=== PATIENT | female | born 1935 | race Caucasian/White ===

== ENCOUNTER 2016-09-29 02:49 | Inpatient (IN) | payer OTHER, BC ==
--- NOTE | 2016-09-29 03:06 | PDOC ---
History of Present Illness - General History Source: Patient <Leo Bean - Last Filed: 09/29/16 06:57> - General History Source: Patient Exam Limitations: No Limitations - History of Present Illness Initial Comments: 09/29/16 03:39 The patient is a 81 year old female from [facility], with a significant past medical history of nasal skin cancer, CAD (stent), [place], CHF, diabetes, HTN, HLD , who presents to the emergency department complaining of diffuse abdominal pain for the past 12 hours. The patient describes the pain as sharp, and reports the pain is exacerbated upon palpation or percussion. The patient reports the pain is constant, and more severe in the epigastric region. The patient reports associated nausea, vomiting (nonbloody/nonbilious), diarrhea , and fecal incontinence. The patient reports no alleviating factors. The patient reports chills, but denies fever, cough, headache, or dizziness. The patient chest pain, diaphoresis, palpitations, or shortness of breath. The patient denies any dysuria, frequency, urgency, or hematuria. The patient reports her roommate has had similar symptoms for the past couple of days. Allergies: None reported. Past Surgical History: Cholecystectomy, Right hip open reduction internal fixation (2013) Social History: Non-smoker. Denies alcohol or drug use. 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) Cardiac Disorders: (CAD - cath, stent) CVA: No CHF: Yes Dementia: No Diabetes: Yes GI Disorders: No Disorders: No HTN: Yes Hypercholesterolemia: Yes Liver Disease: No Seizures: No Thyroid Disease: No - Surgical History Abdominal Surgery: No Appendectomy: No Cardiac Surgery: No Cholecystectomy: Yes Lung Surgery: No Neurologic Surgery: No Orthopedic Surgery: Yes (right hip ORIF 12/2013) - Immunization History Immunization Up to Date: No - Psycho/Social/Smoking Cessation Hx Anxiety: No Suicidal Ideation: No Smoking Status: No Smoking History: Never smoked Have you smoked in the past 12 months: No Number of Cigarettes Smoked Daily: 0 Cigars Per Day: 0 Information on smoking cessation initiated: No Hx Alcohol Use: No Drug/Substance Use Hx: No Substance Use Type: None Hx Substance Use Treatment: No <Leo Bean - Last Filed: 09/29/16 06:57> <Sneha Martinez - Last Filed: 09/29/16 06:59> - Past Medical History Allergies/Adverse Reactions: Allergies Allergy/AdvReac Type Severity Reaction Status Date / Time No Known Drug Allergies Allergy Verified 09/29/16 03:00 Home Medications: Ambulatory Orders Aspirin [ASA -] 81 mg PO DAILY 09/10/14 Gabapentin [Neurontin] 100 mg PO Q8H 09/10/14 Folic Acid/Multivit-Min/Lutein [Centrum Silver Chewable Tablet] 1 tab PO DAILY 12/01/14 Amlodipine Besylate 10 mg PO DAILY 04/23/16 Linagliptin [Tradjenta] 5 mg PO DAILY 04/23/16 Metoprolol Succinate [Toprol Xl] 50 mg PO DAILY 04/23/16 Pantoprazole Sodium [Protonix] 40 mg PO BID 04/23/16 Ticagrelor [Brilinta] 90 mg PO BID 04/23/16 Valacyclovir HCl [Valtrex -] 1,000 mg PO DAILY 04/23/16 Nystatin Ointment [Mycostatin Ointment -] 1 applic TP BID 05/13/16 Furosemide [Lasix -] 80 mg PO BID #60 tablet 07/31/16 Potassium Chloride 20 meq PO DAILY #30 tablet.er 07/31/16 Ascorbic Acid [Vitamin C -] 500 mg PO DAILY 09/29/16 Clotrimazole [Lotrimin 1% Cream -] 1 applic TP DAILY 09/29/16 Insulin Glargine,Hum.rec.anlog [Lantus Solostar PEN -] 35 units SQ DAILY Polyethylene Glycol 3350 [Purelax] 17 gm PO BID PRN 09/29/16 Sitagliptin Phosphate [Januvia] 100 mg PO DAILY 09/29/16 Review of Systems - Review of Systems Able to Perform ROS?: Yes Comments:: 09/29/16 03:41 CONSTITUTIONAL: Present: +chills Absent: fever, no fatigue EYES: Absent: visual changes ENT: Absent: ear pain, no sore throat CARDIOVASCULAR: Absent: chest pain, no palpitations RESPIRATORY: Absent: cough, no SOB GI: Present: +abdominal pain, +nausea, +vomiting, +diarrhea, +fecal incontinence Absent: no constipation, GENITOURINARY: Absent: dysuria, no frequency, no hematuria MUSKULOSKELETAL: Absent: back pain, no arthralgia, no myalgia SKIN: Absent: rash NEURO: Absent: headache <Martinez,Giomilsy - Last Filed: 09/29/16 06:59> *Physical Exam - Vital Signs Last Vital Signs Temp Pulse Resp BP Pulse Ox 97.5 F L 75 14 136/86 95 09/29/16 03:00 09/29/16 03:00 09/29/16 03:00 09/29/16 03:00 09/29/16 03:00 <Leo Bean - Last Filed: 09/29/16 06:57> - Vital Signs Last Vital Signs Temp Pulse Resp BP Pulse Ox 97.5 F L 75 14 136/86 95 09/29/16 03:00 09/29/16 03:00 09/29/16 03:00 09/29/16 03:00 09/29/16 03:00 - Physical Exam Comments: 09/29/16 03:44 GENERAL: Well developed, well nourished. Awake and alert. No acute distress. HEENT: Normocephalic, atraumatic. PERRLA, EOMI. No conjunctival pallor. Sclera are non- icteric. Moist mucous membranes. Oropharynx is clear. NECK: Supple. Full ROM. No JVD. Carotid pulses 2+ and symmetric, without bruits. No thyromegaly. No lymphadenopathy. CARDIOVASCULAR: Regular rate and rhythm. No murmurs, rubs, or gallops. Distal pulses are 2+ and symmetric. PULMONARY: No evidence of respiratory distress. Diminished breath sounds bilaterally. No wheezing, rales or rhonchi. ABDOMINAL: Tympanitic bowel sounds. Extremely tender. Non-distended. No rebound or guarding. No organomegaly. MUSCULOSKELETAL Normal range of motion at all joints. No bony deformities or tenderness. No CVA tenderness. EXTREMITIES: No cyanosis. No clubbing. No edema. No calf tenderness. SKIN: Warm and dry. Normal capillary refill. No rashes. No jaundice. NEUROLOGICAL: Alert, awake, appropriate. Cranial nerves 2-12 intact. No deficits to light touch and temperature in face, upper extremities and lower extremities. No motor deficits in the in face, upper extremities and lower extremities. Normoreflexic in the upper and lower extremities. Normal speech. Toes are down- going bilaterally. Gait is normal without ataxia. PSYCHIATRIC: Cooperative. Good eye contact. Appropriate mood and affect. <Sneha Martinez - Last Filed: 09/29/16 06:59> Heart Score/ECG Review - ECG Impressions Comment:: 09/29/16 05:19 Vent. Rate: 75 bpm IMPRESSION: Normal sinus rhythm. Nonspecific ST abnormality. <Sneha Martinez - Last Filed: 09/29/16 06:59> ED Treatment Course - LABORATORY CBC & Chemistry Diagram: 09/29/16 03:30 09/29/16 03:30 <Leo Bean - Last Filed: 09/29/16 06:57> - LABORATORY CBC & Chemistry Diagram: 09/29/16 03:30 09/29/16 03:30 - RADIOLOGY Radiograph Interpretation: 09/29/16 06:46 EXAM: Abdomen CT INTERPRETED BY: Dr. Faulkner REVIEWED BY: Dr. Bean IMPRESSION: Mild uncomplicated colitis may be due to infection or inflammatory bowel disease <Sneha Martinez - Last Filed: 09/29/16 06:59> Medical Decision Making - Medical Decision Making 09/29/16 06:57 Dr. Bean: The scribe's documentation has been prepared under my direction and personally reviewed by me in its entirery. I confirm that the note above accurately reflects all work, treatment, procedures, and medical decision making performed by me. <Leo Bean - Last Filed: 09/29/16 06:57> - Medical Decision Making 09/29/16 06:59 First call placed to Dr[address] Gudino at 06:55. Awaiting call back. <Sneha Martinez - Last Filed: 09/29/16 06:59> *DC/Admit/Observation/Transfer - Discharge Dispostion Admit: Yes <Leo Bean - Last Filed: 09/29/16 06:57> - Attestations Scribe Attestion: 09/29/16 03:44 Documentation prepared by Sneha Martinez, acting as medical imaging director for Leo Bean DO. <Sneha Martinez - Last Filed: 09/29/16 06:59> Diagnosis at time of Disposition: Colitis - Referrals Referrals: Fouzia Luis MD [Primary Care Provider] -
[2016-09-29] MEDS ORDERED: SODIUM CHLORIDE 1,000 ML IV STA ×2 (03:07→05:35)
[2016-09-29] MEDS ORDERED: ONDANSETRON 4 MG/2 ML VIAL IVPUSH STA ×2 (03:08→04:43)
[2016-09-29 03:54] LABS: MCH 30.1 pg (25.7-33.7); MEAN CELL VOLUME 91.2 fl (80-96); MEAN PLT VOLUME 10.3 fl (7.5-11.1); PLATELET COUNT 258 K/MM3 (134-434); RDW 16.2 % (11.6-15.6); WHITE BLOOD COUNT 24.5 K/mm3 (4.0-10.0)
[2016-09-29] MEDS ORDERED: ONDANSETRON 4 MG/2 ML VIAL ONE ×2 (03:58→05:05)
[2016-09-29 04:06] LABS: INR 0.98 (0.82-1.09); PROTHROMBIN TIME (PATIENT) 10.8 SEC (9.98-11.88)
[2016-09-29 04:16] LABS: ANION GAP 15 (8-16); BILIRUBIN,TOTAL 0.5 mg/dL (0.2-1.0); CALCIUM 9.7 mg/dL (8.5-10.1); CO2 25 mmol/L (21-32); CREATININE 1.6 mg/dL (0.55-1.02); SGOT/AST 24 U/L (15-37); SGPT/ALT 31 U/L (12-78); TOT PROT 7.4 g/dl (6.4-8.2)
[2016-09-29 04:19] LABS: ALK PHOS 202 U/L (45-117); TROPONIN I < 0.02 ng/ml (0.00-0.05)
[2016-09-29 04:21] LABS: GLUCOSE,RANDOM 391 mg/dL (74-106)
[2016-09-29] MEDS ORDERED: morphine CARPU-JECT 2 MG/1 ML DISP.SYRIN IVPUSH ONE (05:30)
[2016-09-29] MEDS ORDERED: METOCLOPRAMIDE HCL INJECTION 10 MG/2 ML VIAL IVPUSH ONE (05:30)
[2016-09-29] MEDS ORDERED: POTASSIUM CHLORIDE TABS 20 MEQ TABLET.ER (FP) PO ONE (05:30)
[2016-09-29] MEDS ORDERED: morphine CARPU-JECT 2 MG/1 ML DISP.SYRIN ONE (05:32)
[2016-09-29] MEDS ORDERED: METOCLOPRAMIDE HCL INJECTION 10 MG/2 ML VIAL ONE (05:32)
[2016-09-29 06:03] LABS: PLATELET ESTIMATE ADEQUATE (NORMAL)
[2016-09-29] MEDS ORDERED: METRONIDAZOLE 500 MG PREMIXED 100 ML IVPB ONE ×2 (06:52→07:04)
[2016-09-29] MEDS ORDERED: LEVOFLOXACIN 500 MG IVPB 100 ML IVPB ONE ×2 (06:52→08:07)
[2016-09-29] MEDS ORDERED: PANTOPRAZOLE SODIUM 40 MG in SODIUM CHLORIDE 100 ML IVPB ONE (07:03)
[2016-09-29] MEDS ORDERED: POLYETHYLENE GLYCOL 3350 119 GM BTL PO PRN (09:21)
[2016-09-29] MEDS ORDERED: ONDANSETRON 4 MG/2 ML VIAL IVPB PRN (09:24)
--- NOTE | 2016-09-29 09:29 | HP ---
Admitting History and Physical - Primary Care Physician PCP: Kathleen Gudino - Past Medical History Cardiovascular: Yes: CHF, HTN, OR (recent non ST elevation OR). No: AFIB, Aneurysm, Aortic Insufficiency, Aortic Stenosis, CAD, Deep Vein Thrombosis, Hyperlipdemia, Mitral Insufficiency, Mitral Stenosis, Murmur, Pulmonary Hypertension, Other Gastrointestinal: No: Ascites, Cancer, Constipation, Crohn's Disease, Diverticulitis, Diverticulosis, Esophageal Varices, Gastritis, GERD, GI Bleed, Hemorrhoids, Hiatal Hernia, Inflamatory Bowel Disease, Irritable Bowel Disease, Pancreatitis, Peptic Ulcer Disease, Ulcerative Colitis, Other Hepatobiliary: Yes: Cholecystitis (prior cholecystitis s/p perc roxana tube from 11/2013-02/2014). No: Cirrhosis, Cholelithiasis, Choledocholithiasis, Hepatitis A , Hepatitis B, Hepatitis C, Other Renal/: Yes: Renal Failure (on prior admission- resolved). No: Renal Inusuff , BPH, Cancer, Hematuria, Hemodialysis, Neurogenic Bladder, Renal Calculi, UTI, Other Heme/Onc: No: Anemia, B12 Deficiency, Bleeding Disorder, Cancer, Current Chemotherapy, Current Radiation Therapy, Hemochromatosis, Hypercoaguable State, Myeloproliferative Synd, Sickle Cell Disease, Sickle Cell Trait, Thrombocytopenia, Other Endocrine: Yes: Diabetes Mellitus (c/b peripheral neuropathy) Dermatology: Yes: 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, plan for resection in ). 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 History of Recent Travel: No <Kathleen Gudino - Last Filed: 09/29/16 09:28> - Primary Care Physician PCP: Kathleen Gudino - Admission History of Present Illness: The patient is an 81-year-old woman, from [facility], with a significant past medical history of nasal skin cancer, coronary artery disease s /p stent placement, myocardial infarction, congestive heart failure, diabetes mellitus, hypertension and hypercholesterolemia who presented to the emergency department complaining of constant, sharp diffuse abdominal pain, most prominent over the epigastric region for the past 12 hours. Her pain is exacerbated upon palpation or percussion. She also reported associated symptoms of nausea, vomiting (nonbloody/nonbilious), diarrhea, and fecal incontinence. Workup done in the ER. - showed she has colitis. Stool occult blood positive. Elevated WBCs. Patient given fluids and antibiotics and was admitted to the floor. Patient seen and examined. Chart reviewed. Still having abdominal pain. Denies chest pain. Denies any blood in the stools. Nausea present. On further questioning, patient reports she had colonoscopy done many years ago (not in the recent past). <Merline Barker - Last Filed: 09/29/16 10:28> Home Medications <Kathleen Gudino - Last Filed: 09/29/16 09:28> <Merline Barker - Last Filed: 09/29/16 10:28> - Allergies Allergies/Adverse Reactions: Allergies Allergy/AdvReac Type Severity Reaction Status Date / Time No Known Drug Allergies Allergy Verified 09/29/16 03:00 - Home Medications Home Medications: Ambulatory Orders Aspirin [ASA -] 81 mg PO DAILY 09/10/14 Gabapentin [Neurontin] 100 mg PO Q8H 09/10/14 Folic Acid/Multivit-Min/Lutein [Centrum Silver Chewable Tablet] 1 tab PO DAILY 12/01/14 Amlodipine Besylate 10 mg PO DAILY 04/23/16 Linagliptin [Tradjenta] 5 mg PO DAILY 04/23/16 Metoprolol Succinate [Toprol Xl] 50 mg PO DAILY 04/23/16 Pantoprazole Sodium [Protonix] 40 mg PO BID 04/23/16 Ticagrelor [Brilinta] 90 mg PO BID 04/23/16 Valacyclovir HCl [Valtrex -] 1,000 mg PO DAILY 04/23/16 Nystatin Ointment [Mycostatin Ointment -] 1 applic TP BID 05/13/16 Furosemide [Lasix -] 80 mg PO BID #60 tablet 07/31/16 Potassium Chloride 20 meq PO DAILY #30 tablet.er 07/31/16 Ascorbic Acid [Vitamin C -] 500 mg PO DAILY 09/29/16 Clotrimazole [Lotrimin 1% Cream -] 1 applic TP DAILY 09/29/16 Insulin Glargine,Hum.rec.anlog [Lantus Solostar PEN -] 35 units SQ DAILY Polyethylene Glycol 3350 [Purelax] 17 gm PO BID PRN 09/29/16 Sitagliptin Phosphate [Januvia] 100 mg PO DAILY 09/29/16 Review of Systems Unable to obtain ROS, reason: See HPI. <Merline Barker - Last Filed: 09/29/16 10:28> Physical Examination Vital Signs: Vital Signs Temperature 98.1 F 09/29/16 06:59 Pulse Rate 70 09/29/16 08:06 Respiratory Rate 18 09/29/16 08:06 Blood Pressure 121/68 09/29/16 08:06 O2 Sat by Pulse Oximetry (%) 98 09/29/16 08:06 <Kathleen Gudino - Last Filed: 09/29/16 09:28> Vital Signs: Vital Signs Temperature 98.1 F 09/29/16 06:59 Pulse Rate 70 09/29/16 08:06 Respiratory Rate 18 09/29/16 08:06 Blood Pressure 121/68 09/29/16 08:06 O2 Sat by Pulse Oximetry (%) 98 09/29/16 08:06 Constitutional: Yes: Mild Distress Eyes: Yes: Conjunctiva Clear HENT: Yes: Other (Mucosa dry.) Neck: Yes: Supple Cardiovascular: Yes: Regular Rate and Rhythm Respiratory: Yes: CTA Bilaterally Gastrointestinal: Yes: Soft, Other (Mild diffuse tenderness generalized. No rigidity or rebound.) Edema: No Neurological: Yes: Alert <Merline Barker - Last Filed: 09/29/16 10:28> Imaging - Results Chest X-ray: Report Reviewed Cat Scan: Report Reviewed Other: Report Reviewed <Merline Barker - Last Filed: 09/29/16 10:28> Problem List - Problems (1) Colitis Code(s): K52.9 - NONINFECTIVE GASTROENTERITIS AND COLITIS, UNSPECIFIED (2) CHF (congestive heart failure) Code(s): I50.9 - HEART FAILURE, UNSPECIFIED (3) Diabetes Code(s): E11.9 - TYPE 2 DIABETES MELLITUS WITHOUT COMPLICATIONS Qualifiers: Diabetes mellitus type: type 2 Diabetes mellitus complication status: with hypoglycemia Diabetes mellitus complication detail: without coma Diabetes mellitus terminal manager insulin use: unspecified usp insulin use status Qualified Code(s): E11.649 - Type 2 diabetes mellitus with hypoglycemia without coma; Z79.4 - intermodal dispatcher (current) use of insulin <Merline Barker - Last Filed: 09/29/16 10:28> Assessment/Plan - Antibiotics. - GI evaluation - Mild hydration. - Hold Lasix as patient appears dry. - Pain control. - DVT Prophylaxis with SCD stockings. - Avoid Heparin or Lovenox, as patient is guac positive. - Will follow. Documentation prepared by Merline Barker, acting as a medical sales for Kathleen Gudino MD. <Merline Barker - Last Filed: 09/29/16 10:28>
[2016-09-29] MEDS ORDERED: SODIUM CHLORIDE 1,000 ML IV SCH (09:30)
[2016-09-29] MEDS ORDERED: INSULIN DETEMIR 100 UNITS/ML MDV SQ SCH (10:00)
--- NOTE | 2016-09-29 10:25 | EKG ---
Test Reason : Blood Pressure : / mmHG Vent. Rate : 075 BPM Atrial Rate : 075 BPM P-R Int : 196 ms QRS Dur : 090 ms QT Int : 418 ms P-R-T Axes : 028 043 058 degrees QTc Int : 466 ms NORMAL SINUS RHYTHM NONSPECIFIC ST ABNORMALITY ABNORMAL ECG WHEN COMPARED WITH ECG OF 28-JUL-2016 15:52, NO SIGNIFICANT CHANGE WAS FOUND Confirmed by MARIBELL ARCOS MD ([id number]) on 09/29/2016 10:24:45 AM Referred By: Confirmed By:MARIBELL ARCOS MD
--- NOTE | 2016-09-29 10:50 | CON.GI ---
Consult Consult Specialty:: Gastroenterology Referred by:: Guillermina Van Reason for Consultation:: Nausea, vomiting, diarrhea - History of Present Illness Chief Complaint: nausea, vomiting, diarrhrea History of Present Illness: 81 year old female with from [facility] presented to the ED complaining of abdominal pain, nausea, vomiting and diarrhea. The symptoms started yesterday after at 2 pm after lunch with vomiting, non bloody, non bilious, non projectile food filled fluid. She vomited 5 times yesterday and 3 time today but now the vomit is clear white fluid only. Patient has 7 episode of diarrhea so far, watery brown fluid, no mucus, no bright red blood per rectum. Pt also complained of abdominal pain diffuse, non radiating, constant 7/ 10, with no alleviating factor. Aggravating factor is palpation of abdomen. Pt admitted to have recently used antibiotics in August. No recent travel, no raw food or meat, no fresh water drinking. Pt had her roommate who had an abdominal infection with diarrhea and vomiting less than 1 week ago, she said she always had to clean up to toilet after her roommate. Pt said she get diarrhea couple of time per year but this time seem to be more severe. The patient last colonoscopy was 10 year ago, she had diverticulosis and polyps removed. Repeat colonoscopy was advised after 10 years. when offered repeat colonoscopy, she declined. She never had an EGD. Pt denies fever, chills, chest pain, shortness of breath, palpitation, no dizziness or confusion. 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 Left drooping eyelid surgery 2016. 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 Place of : [facility] History of Recent Travel: No Home Medications - Allergies Allergies/Adverse Reactions: Allergies Allergy/AdvReac Type Severity Reaction Status Date / Time No Known Drug Allergies Allergy Verified 09/29/16 03:00 - Home Medications Home Medications: Ambulatory Orders Aspirin [ASA -] 81 mg PO DAILY 09/10/14 Gabapentin [Neurontin] 100 mg PO Q8H 09/10/14 Folic Acid/Multivit-Min/Lutein [Centrum Silver Chewable Tablet] 1 tab PO DAILY 12/01/14 Amlodipine Besylate 10 mg PO DAILY 04/23/16 Linagliptin [Tradjenta] 5 mg PO DAILY 04/23/16 Metoprolol Succinate [Toprol Xl] 50 mg PO DAILY 04/23/16 Pantoprazole Sodium [Protonix] 40 mg PO BID 04/23/16 Ticagrelor [Brilinta] 90 mg PO BID 04/23/16 Valacyclovir HCl [Valtrex -] 1,000 mg PO DAILY 04/23/16 Nystatin Ointment [Mycostatin Ointment -] 1 applic TP BID 05/13/16 Furosemide [Lasix -] 80 mg PO BID #60 tablet 07/31/16 Potassium Chloride 20 meq PO DAILY #30 tablet.er 07/31/16 Ascorbic Acid [Vitamin C -] 500 mg PO DAILY 09/29/16 Clotrimazole [Lotrimin 1% Cream -] 1 applic TP DAILY 09/29/16 Insulin Glargine,Hum.rec.anlog [Lantus Solostar PEN -] 35 units SQ DAILY Polyethylene Glycol 3350 [Purelax] 17 gm PO BID PRN 09/29/16 Sitagliptin Phosphate [Januvia] 100 mg PO DAILY 09/29/16 Family Disease History - Family Disease History Family Disease History: Diabetes: Sister ( of CLOUD rt cirrhosis ), Heart Disease: Father ( at age 33 with TN), Brother ( after CABG), CA: Mother ( of Ovarian cancer at age 57), Other: Sister Review of Systems - Review of Systems Constitutional: reports: No Symptoms Eyes: reports: Other (awaiting repeat surgery for reccurent eye drop) HENT: reports: No Symptoms, Hearing Loss Respiratory: reports: No Symptoms Gastrointestinal: reports: Abdominal Pain, Bloating, Diarrhea, Nausea, Vomiting Musculoskeletal: reports: No Symptoms Psychiatric: reports: No Symptoms Physical Exam-GI Vital Signs: Vital Signs Temperature 98.1 F 09/29/16 06:59 Pulse Rate 70 09/29/16 08:06 Respiratory Rate 18 09/29/16 08:06 Blood Pressure 121/68 09/29/16 08:06 O2 Sat by Pulse Oximetry (%) 98 09/29/16 08:06 CBC,CMP WBC 24.5 K/mm3 (4.0-10.0) H D 09/29/16 03:30 RBC 4.50 M/mm3 (3.60-5.2) 09/29/16 03:30 Hgb 13.5 GM/dL (10.7-15.3) D 09/29/16 03:30 Hct 41.0 % (32.4-45.2) 09/29/16 03:30 MCV 91.2 fl (80-96) 09/29/16 03:30 MCHC 33.0 g/dl (32.0-36.0) 09/29/16 03:30 RDW 16.2 % (11.6-15.6) H 09/29/16 03:30 Plt Count 258 K/MM3 (134-434) 09/29/16 03:30 MPV 10.3 fl (7.5-11.1) 09/29/16 03:30 Neutrophils % 85.0 % (42.8-82.8) H 09/29/16 03:30 Lymphocytes % 4.0 % (8-40) L D 09/29/16 03:30 Monocytes % 7.0 % (3.8-10.2) 09/29/16 03:30 Eosinophils % Travel Freight And Passenger Agent 09/29/16 03:30 Basophils % Travel Freight And Passenger Agent 09/29/16 03:30 Band Neutrophils 4.0 % (0-10) D 09/29/16 03:30 Platelet Estimate Adequate (NORMAL) 09/29/16 03:30 Platelet Comment Few large plts 09/29/16 03:30 RBC Morphology Appears normal 09/29/16 03:30 Sodium 139 mmol/L (136-145) 09/29/16 03:30 Potassium 3.3 mmol/L (3.5-5.1) L D 09/29/16 03:30 Chloride 99 mmol/L (98-107) 09/29/16 03:30 Carbon Dioxide 25 mmol/L (21-32) 09/29/16 03:30 Anion Gap 15 (8-16) 09/29/16 03:30 BUN 40 mg/dL (7-18) H D 09/29/16 03:30 Creatinine 1.6 mg/dL (0.55-1.02) H D 09/29/16 03:30 Creat Clearance w eGFR 30.78 (>60) 09/29/16 03:30 Random Glucose 391 mg/dL (74-106) H* D 09/29/16 03:30 Calcium 9.7 mg/dL (8.5-10.1) 09/29/16 03:30 Magnesium 2.0 mg/dL (1.8-2.4) 09/29/16 03:30 Total Bilirubin 0.5 mg/dL (0.2-1.0) D 09/29/16 03:30 AST 24 U/L (15-37) 09/29/16 03:30 ALT 31 U/L (12-78) 09/29/16 03:30 Alkaline Phosphatase 202 U/L (45-117) H D 09/29/16 03:30 Creatine Kinase 29 IU/L (26-192) 09/29/16 03:30 Troponin I < 0.02 ng/ml (0.00-0.05) 09/29/16 03:30 B-Natriuretic Peptide 202.51 pg/ml (5-450) 09/29/16 03:30 Total Protein 7.4 g/dl (6.4-8.2) 09/29/16 03:30 Albumin 4.0 g/dl (3.4-5.0) 09/29/16 03:30 Lipase 113 U/L (73-393) 09/29/16 03:30 Current Medications Generic Name Dose Route Start Last Admin Trade Name Freq PRN Reason Stop Dose Admin Amlodipine Besylate 10 mg 09/29/16 10:00 09/29/16 13:09 Norvasc - PO 10 mg DAILY JOSE ELIAS Administration Clotrimazole 1 applic 09/29/16 10:00 09/29/16 13:09 Lotrimin 1% Cream - TP 1 applic DAILY JOSE ELIAS Administration Gabapentin 100 mg 09/29/16 14:00 Neurontin - PO TID JOSE ELIAS Metronidazole 100 mls @ 100 mls/hr 09/29/16 18:00 Flagyl 500mg Premixed Ivpb - IVPB Q8H-IV JOSE ELIAS Levofloxacin 50 mls @ 50 mls/hr 09/30/16 10:00 Levaquin 250 Mg Premixed Ivpb - IVPB DAILY JOSE ELIAS Dextrose/Sodium Chloride 1,000 mls @ 100 mls/hr 09/29/16 12:15 09/29/16 13:10 D5-1/2ns+40 Meq Kcl - IV 100 mls/hr ASDIR JOSE ELIAS Administration Insulin Aspart 1 vial 09/29/16 11:00 Novolog Vial Sliding Scale - SQ ACHS [facility] Protocol Insulin Detemir 10 units 09/29/16 16:30 Levemir Vial SQ BIDAC JOSE ELIAS Metoprolol Succinate 50 mg 09/29/16 10:00 09/29/16 13:09 Toprol Xl - PO 50 mg DAILY JOSE ELIAS Administration Morphine Sulfate 1 mg 09/29/16 09:24 Morphine Injection - IVPUSH Q4H PRN PAIN Multivitamins/Minerals 1 each 09/29/16 10:00 09/29/16 13:09 Theragran-M PO 1 each DAILY JOSE ELIAS Administration Nystatin 1 applic 09/29/16 22:00 Mycostatin Ointment - TP BID JOSE ELIAS Ondansetron HCl 4 mg 09/29/16 09:24 Zofran Injection IVPB Q6H PRN NAUSEA Pantoprazole Sodium 40 mg 09/29/16 10:00 Protonix - PO BID [facility] Polyethylene Glycol 17 gm 09/29/16 09:21 Miralax (For Daily Use) - PO BID PRN CONSTIPATION Ticagrelor 90 mg 09/29/16 10:00 09/29/16 13:08 Brilinta - PO 90 mg BID JOSE ELIAS Administration Valacyclovir HCl 1,000 mg 09/29/16 10:00 09/29/16 13:08 Valtrex - PO 1,000 mg DAILY JOSE ELIAS Administration Constitutional: Yes: Well Nourished, Calm Eyes: Yes: Other (left ptosis). No: Sclera Icterus HENT: Yes: Other (dry mucus membrane) Cardiovascular: Yes: Regular Rate and Rhythm, Murmur, S1, S2 Respiratory: Yes: Regular, CTA Bilaterally Gastrointestinal Inspection: Yes: Distention, Scars (healed lap choly and Pfannensteil incisions) ...Auscultate: Yes: Normoactive Bowel Sounds ...Palpate: Yes: Soft, Tenderness, Tenderness, Epigastium ...Rectal Exam: Yes: Guaiac Positive, Hemorrhoids/External, Sphincter Tone Normal, Other (loose mustard color diarrhea) Edema: LLE: 1+, RLE: 1+ Peripheral Pulses WNL: Yes Neurological: Yes: Alert, Oriented Psychiatric: Yes: Alert, Oriented Labs: INR, PTT INR 0.98 (0.82-1.09) 09/29/16 03:30 Laboratory Tests 09/29/16 09/29/16 09/29/16 03:30 03:30 05:47 WBC 24.5 H D Potassium 3.3 L D Anion Gap 15 BUN 40 H D Creatinine 1.6 H D Alkaline Phosphatase 202 H D Stool Occult Blood Positive 09/29/16 10:30 WBC Potassium Anion Gap BUN Creatinine Alkaline Phosphatase Stool Occult Blood Positive Laboratory Tests 08/16/14 09/02/14 09/14/14 21:50 07:00 05:50 Alkaline Phosphatase 477 H 223 H 122 12/07/14 07/30/16 09/29/16 07:10 05:45 03:30 Alkaline Phosphatase 230 H 142 H 202 H D Imaging - Results Cat Scan: Report Reviewed (CT abdomen/pelvis 09/29/16 showed Questionable mild colitis. No evidence of SBO or acute pathology within the abdomen or pelvis. No ductal dilatation reported) Problem List - Problems (1) Colitis Code(s): K52.9 - NONINFECTIVE GASTROENTERITIS AND COLITIS, UNSPECIFIED (2) Positive occult stool blood test Code(s): R19.5 - OTHER FECAL ABNORMALITIES (3) Colon polyp Code(s): K63.5 - POLYP OF COLON (4) Diverticula of colon Code(s): K57.30 - DVRTCLOS OF LG INT W/O PERFORATION OR ABSCESS W/O BLEEDING (5) Alkaline phosphatase elevation Code(s): R74.8 - ABNORMAL LEVELS OF OTHER SERUM ENZYMES (6) Nausea & vomiting Code(s): R11.2 - NAUSEA WITH VOMITING, UNSPECIFIED (7) Diarrhea Code(s): R19.7 - DIARRHEA, UNSPECIFIED (8) Hypokalemia, gastrointestinal losses Code(s): E87.6 - HYPOKALEMIA (9) High anion gap metabolic acidosis Code(s): E87.2 - ACIDOSIS (10) Hyperglycemia Code(s): R73.9 - HYPERGLYCEMIA, UNSPECIFIED (11) Hyperglycemia due to type 2 diabetes mellitus Code(s): E11.65 - TYPE 2 DIABETES MELLITUS WITH HYPERGLYCEMIA Assessment/Plan 81 year old female with recent antibiotic use and roommate with GI infection presented to N/V/D, diffuse abdominal tenderness, CT showed Colitis. lactic acidosis and marked leukocytosis suggest that this more likely bacterial or c-diff toxin mediated rather than just viral gastroenteritis. Fortunately there is no fever, tachycardia or hypotension, no acute abdomen, however given her age and diabetes, mesenteric ischemia remains a concern Pseudomembranous colitis due to c-diff is a distinct possibility due to recent antibiotic use, living is long-term, Blood in stool, leukocytosis and metabolic acidosis support. Colitis rt to antibiotic is possible since pt had recent antibiotic use Inflammatory bowel disease is very unlikely since these are chronic, pt has no history and pt has passed the usual age of onset Change IV fluid to D5 1/2NS with 40meq KCl at 100 ml/h Continue Zofran Prn Q6h Add Reglan 10mg IV q6h if vomiting ensues for possible diabetic gastroparesis Continue Antibiotic Check ketone level to exclude component of DKA. trial of clear liquid Repeat Stool OB Stool studies (ova and parasite, stool culture, stool WBC) Stool Cdiff antigen and toxin norvovirus PCR Continue PPI to prevent stress gastritis Given ALP elevation, will order sonogram to exclude ductal dilatation or hepatic abscess or mass. Check GGT Check CRP Case Discussed with Dr Man
[2016-09-29] MEDS ORDERED: POTASSIUM CHLORIDE 40 MEQ in SODIUM CHLORIDE 1,000 ML IVPB SCH (11:30)
[2016-09-29] MEDS ORDERED: METOCLOPRAMIDE HCL INJECTION 10 MG/2 ML VIAL IVPB SCH (12:30)
[2016-09-29] MEDS: valACYclovir HCL 500 MG TABLET (FP) PO SCH (13:08)
[2016-09-29] MEDS: TICAGRELOR 90 MG TABLET PO SCH ×2 (13:08→22:25)
[2016-09-29] MEDS: METOPROLOL SUCCINATE 50 MG TAB.SR.24H (FP) PO SCH (13:09)
[2016-09-29] MEDS: amLODIPine BESYLATE 10 MG TABLET (FP) PO SCH (13:09)
[2016-09-29] MEDS: CLOTRIMAZOLE 1% CREAM 15 GM TUBE TP SCH (13:09)
[2016-09-29] MEDS: MULTIVITAMINS THER W-MINERALS COMBO TABLET (FP) PO SCH (13:09)
[2016-09-29] MEDS: D5-1/2NS+40 MEQ KCL - 1,000 ML IV SCH (13:10)
[2016-09-29 13:54] VITALS: BMI 34.4
--- NOTE | 2016-09-29 13:59 | PN ---
Teaching Attending Note Name of Resident: Timmy Cherry ATTENDING PHYSICIAN STATEMENT I saw and evaluated the patient. I reviewed the resident's note and discussed the case with the resident. I agree with the resident's findings and plan as documented. SUBJECTIVE:Pt presents with N/V, and diarrhea. recent antibiotic exposure and [place] residence OBJECTIVE:BS active, diffuse tenderness ASSESSMENT AND PLAN: Colitis appears to be C diff toxin mediated or bacterial given the metabolic acidosis and leucocytosis. Will need to watch for mesenteric ischemia.
[2016-09-29] MEDS ORDERED: FUROSEMIDE 40 MG TABLET (FP) PO SCH (14:00)
[2016-09-29] MEDS ORDERED: INSULIN (NOVOLOG) ASPART 100 UNITS/ML 10ML VIAL SQ ONE (14:15)
[2016-09-29] MEDS: INSULIN SLIDING SCALE (NOVOLOG) 1 VIAL SQ SCH ×3 (14:17→22:25)
[2016-09-29] MEDS: GABAPENTIN 100 MG CAPSULE (FP) PO SCH ×2 (14:18→22:25)
[2016-09-29] MEDS: PANTOPRAZOLE 40 MG TABLET (FP) PO SCH ×2 (14:18→22:25)
[2016-09-29 14:46] LABS: MCH 30.4 pg (25.7-33.7); MCHC 33.4 g/dl (32.0-36.0); MEAN PLT VOLUME 10.2 fl (7.5-11.1); PLATELET COUNT 217 K/MM3 (134-434); RDW 16.1 % (11.6-15.6); WHITE BLOOD COUNT 15.5 K/mm3 (4.0-10.0)
[2016-09-29 14:50] LABS: C-REACTIVE PROTEIN 11.3 MG/DL (0.00-0.3)
[2016-09-29 14:53] LABS: ANION GAP 14 (8-16); CALCIUM 9.3 mg/dL (8.5-10.1); CO2 24 mmol/L (21-32); CREATININE 1.5 mg/dL (0.55-1.02); LDH 163 U/L (84-246)
[2016-09-29 15:05] LABS: GLUCOSE,RANDOM 371 mg/dL (74-106)
[2016-09-29 15:14] LABS: ACETONE SERUM NEGATIVE (NEGATIVE)
[2016-09-29] MEDS: INSULIN DETEMIR 100 UNITS/ML MDV SQ SCH (17:51)
[2016-09-29] MEDS: METRONIDAZOLE 500 MG PREMIXED 100 ML IVPB SCH (17:52)
[2016-09-29] MEDS ORDERED: INSULIN DETEMIR 100 UNITS/ML MDV SQ ONE (19:27)
[2016-09-29] MEDS ORDERED: PT OWN MED DRAWER 7, Y5N ONE (21:33)
[2016-09-29] MEDS: NYSTATIN 100000 UNIT/GM TOPICAL OINTMENT 15 GM TUBE TP SCH (22:29)
[2016-09-29 23:56] LABS: URINE APPEARANCE SLCLOUDY; URINE BILIRUBIN NEGATIVE (NEGATIVE); URINE BLOOD NEGATIVE (NEGATIVE); URINE COLOR YELLOW; URINE GLUCOSE (UA) 3+ (NEGATIVE); URINE KETONE NEGATIVE (NEGATIVE); URINE LEUK ESTERASE NEGATIVE (NEGATIVE); URINE NITRITE NEGATIVE (NEGATIVE); URINE PROTEIN NEGATIVE (NEGATIVE); URINE UROBILINOGEN NEGATIVE E.U./dl (0.2-1.0)
[2016-09-30] MEDS: METRONIDAZOLE 500 MG PREMIXED 100 ML IVPB SCH ×2 (01:39→11:17)
[2016-09-30] MEDS: D5-1/2NS+40 MEQ KCL - 1,000 ML IV SCH ×3 (05:32→17:38)
[2016-09-30] MEDS: GABAPENTIN 100 MG CAPSULE (FP) PO SCH ×3 (06:19→21:22)
[2016-09-30] MEDS: INSULIN SLIDING SCALE (NOVOLOG) 1 VIAL SQ SCH ×4 (06:19→21:22)
[2016-09-30] MEDS: INSULIN DETEMIR 100 UNITS/ML MDV SQ SCH ×2 (06:19→16:53)
[2016-09-30 08:12] LABS: BASOPHIL 0.4 % (0-2.0); MCH 30.4 pg (25.7-33.7); MCHC 33.2 g/dl (32.0-36.0); MEAN CELL VOLUME 91.7 fl (80-96); MEAN PLT VOLUME 10.1 fl (7.5-11.1); NEUTROPHILS 83.3 % (42.8-82.8); PLATELET COUNT 173 K/MM3 (134-434); RDW 15.6 % (11.6-15.6); WHITE BLOOD COUNT 13.1 K/mm3 (4.0-10.0)
[2016-09-30 09:20] LABS: ALBUMIN 2.9 g/dl (3.4-5.0); BILIRUBIN,TOTAL 0.6 mg/dL (0.2-1.0); CALCIUM 8.6 mg/dL (8.5-10.1); CREATININE 1.6 mg/dL (0.55-1.02); TOT PROT 5.6 g/dl (6.4-8.2)
[2016-09-30] MEDS ORDERED: PT OWN MED DRAWER 7, Y5N ONE ×2 (10:21→10:39)
[2016-09-30] MEDS: TICAGRELOR 90 MG TABLET PO SCH ×2 (10:24→21:18)
[2016-09-30] MEDS: LEVOFLOXACIN 250 MG IVPB 50 ML IVPB SCH (10:25)
[2016-09-30] MEDS: NYSTATIN 100000 UNIT/GM TOPICAL OINTMENT 15 GM TUBE TP SCH ×2 (10:25→21:22)
[2016-09-30] MEDS: amLODIPine BESYLATE 10 MG TABLET (FP) PO SCH (10:25)
[2016-09-30] MEDS: CLOTRIMAZOLE 1% CREAM 15 GM TUBE TP SCH (10:25)
[2016-09-30] MEDS: MULTIVITAMINS THER W-MINERALS COMBO TABLET (FP) PO SCH (10:26)
[2016-09-30] MEDS: METOPROLOL SUCCINATE 50 MG TAB.SR.24H (FP) PO SCH (10:26)
[2016-09-30] MEDS: PANTOPRAZOLE 40 MG TABLET (FP) PO SCH ×2 (10:26→21:22)
[2016-09-30] MEDS: valACYclovir HCL 500 MG TABLET (FP) PO SCH (10:26)
--- NOTE | 2016-09-30 12:29 | PN ---
GI Progress Note Subjective: GI NOte: Diarrhea and abdominal pain subsiding. No further nausea or vomiting. Tolerating liquids. Large drop in alklaine phosphatase suggests passage of sludge or a stone. Will get liver sonogram. - Objective Vital Signs: Vital Signs Temperature 98.6 F 09/30/16 10:00 Pulse Rate 64 09/30/16 10:00 Respiratory Rate 20 09/30/16 10:00 Blood Pressure 107/63 09/30/16 10:00 O2 Sat by Pulse Oximetry (%) 95 09/30/16 09:00 CBC,CMP WBC 13.1 K/mm3 (4.0-10.0) H 09/30/16 06:15 RBC 3.67 M/mm3 (3.60-5.2) 09/30/16 06:15 Hgb 11.2 GM/dL (10.7-15.3) D 09/30/16 06:15 Hct 33.7 % (32.4-45.2) 09/30/16 06:15 MCV 91.7 fl (80-96) 09/30/16 06:15 MCHC 33.2 g/dl (32.0-36.0) 09/30/16 06:15 RDW 15.6 % (11.6-15.6) 09/30/16 06:15 Plt Count 173 K/MM3 (134-434) D 09/30/16 06:15 MPV 10.1 fl (7.5-11.1) 09/30/16 06:15 Neutrophils % 83.3 % (42.8-82.8) H 09/30/16 06:15 Lymphocytes % 7.6 % (8-40) L D 09/30/16 06:15 Monocytes % 7.7 % (3.8-10.2) 09/30/16 06:15 Eosinophils % 1.0 % (0-4.5) 09/30/16 06:15 Basophils % 0.4 % (0-2.0) 09/30/16 06:15 Band Neutrophils 4.0 % (0-10) D 09/29/16 03:30 Platelet Estimate Adequate (NORMAL) 09/29/16 03:30 Platelet Comment Few large plts 09/29/16 03:30 RBC Morphology Appears normal 09/29/16 03:30 Sodium 141 mmol/L (136-145) 09/30/16 06:15 Potassium 3.3 mmol/L (3.5-5.1) L 09/30/16 06:15 Chloride 105 mmol/L (98-107) 09/30/16 06:15 Carbon Dioxide 25 mmol/L (21-32) 09/30/16 06:15 Anion Gap 11 (8-16) 09/30/16 06:15 BUN 33 mg/dL (7-18) H 09/30/16 06:15 Creatinine 1.6 mg/dL (0.55-1.02) H 09/30/16 06:15 Creat Clearance w eGFR 30.78 (>60) 09/30/16 06:15 POC Glucometer 209 UNITS (()) 09/30/16 11:51 Random Glucose 184 mg/dL (74-106) H D 09/30/16 06:15 Calcium 8.6 mg/dL (8.5-10.1) 09/30/16 06:15 Magnesium 2.0 mg/dL (1.8-2.4) 09/29/16 13:55 Total Bilirubin 0.6 mg/dL (0.2-1.0) 09/30/16 06:15 GGT 30 U/L (5-85) 09/30/16 06:15 AST 15 U/L (15-37) D 09/30/16 06:15 ALT 20 U/L (12-78) D 09/30/16 06:15 Alkaline Phosphatase 131 U/L (45-117) H D 09/30/16 06:15 LD Total 163 U/L (84-246) 09/29/16 13:55 Creatine Kinase 29 IU/L (26-192) 09/29/16 03:30 Troponin I < 0.02 ng/ml (0.00-0.05) 09/29/16 03:30 C-Reactive Protein 13.6 MG/DL (0.00-0.3) H D 09/30/16 06:15 B-Natriuretic Peptide 202.51 pg/ml (5-450) 09/29/16 03:30 Total Protein 5.6 g/dl (6.4-8.2) L D 09/30/16 06:15 Albumin 2.9 g/dl (3.4-5.0) L D 09/30/16 06:15 Total Amylase 19 U/L (25-115) L D 09/29/16 13:55 Lipase 113 U/L (73-393) 09/29/16 03:30 Constitutional: Calm ...Auscultate: Yes: Normoactive Bowel Sounds ...Palpate: Yes: Soft, Tenderness (mildly tender LLQ) Labs: CBC, BMP 09/30/16 06:15 09/30/16 06:15 INR, PTT INR 0.98 (0.82-1.09) 09/29/16 03:30 Microbiology 09/29/16 14:30 Stool Norovirus GI - Preliminary 09/29/16 14:30 Stool Norovirus GII - Preliminary 09/29/16 03:30 Blood - Peripheral Venous Blood Culture - Preliminary NO GROWTH OBTAINED AFTER 24 HOURS, INCUBATION TO CONTINUE FOR 4 DAYS. Laboratory Tests 09/30/16 09/30/16 09/30/16 06:15 06:15 06:15 WBC 13.1 H Hgb 11.2 D AST 15 D ALT 20 D Alkaline Phosphatase 131 H D C-Reactive Protein 13.6 H D Albumin 2.9 L D Assessment/Plan Colitis subsiding, continue to suspect C diff vs bacterial. Will switch Flagyl to po route. Will try soft, lactose free diet. Await cultures. Will get MRCP to exclude CBD stones
--- NOTE | 2016-09-30 12:38 | PN ---
Progress Note, Physician Chief Complaint: no bm since AM No diarrhea No nausea, vomiting tolerating liquid diet no abd pain HCP at bedside c/o left knee pain --stiffness - Current Medication List Current Medications: Active Medications Amlodipine Besylate (Norvasc -) 10 mg PO DAILY [facility] Last Admin: 09/30/16 10:25 Dose: 10 mg Clotrimazole (Lotrimin 1% Cream -) 1 applic TP DAILY [facility] Last Admin: 09/30/16 10:25 Dose: 1 applic Gabapentin (Neurontin -) 100 mg PO TID [facility] Last Admin: 09/30/16 06:19 Dose: 100 mg Levofloxacin (Levaquin 250 Mg Premixed Ivpb -) 50 mls @ 50 mls/hr IVPB DAILY [facility] Last Admin: 09/30/16 10:25 Dose: 50 mls/hr Dextrose/Sodium Chloride (D5-1/2ns+40 Meq Kcl -) 1,000 mls @ 100 mls/hr IV ASDIR [facility] Last Admin: 09/30/16 12:25 Dose: Not Given Insulin Aspart (Novolog Vial Sliding Scale -) 1 vial SQ ACHS [facility] PRN Reason: Protocol Last Admin: 09/30/16 12:25 Dose: 5 units Insulin Detemir (Levemir Vial) 10 units SQ BIDAC [facility] Last Admin: 09/30/16 06:19 Dose: 10 units Metoprolol Succinate (Toprol Xl -) 50 mg PO DAILY [facility] Last Admin: 09/30/16 10:26 Dose: 50 mg Metronidazole (Flagyl -) 500 mg PO TID [facility] Morphine Sulfate (Morphine Injection -) 1 mg IVPUSH Q4H PRN PRN Reason: PAIN Multivitamins/Minerals (Theragran-M) 1 each PO DAILY [facility] Last Admin: 09/30/16 10:26 Dose: 1 each Nystatin (Mycostatin Ointment -) 1 applic TP BID [facility] Last Admin: 09/30/16 10:25 Dose: 1 applic Ondansetron HCl (Zofran Injection) 4 mg IVPB Q6H PRN PRN Reason: NAUSEA Pantoprazole Sodium (Protonix -) 40 mg PO BID [facility] Last Admin: 09/30/16 10:26 Dose: 40 mg Polyethylene Glycol (Miralax (For Daily Use) -) 17 gm PO BID PRN PRN Reason: CONSTIPATION Ticagrelor (Brilinta -) 90 mg PO BID [facility] Last Admin: 09/30/16 10:24 Dose: 90 mg Valacyclovir HCl (Valtrex -) 1,000 mg PO DAILY [facility] Last Admin: 09/30/16 10:26 Dose: 1,000 mg - Objective Vital Signs: Vital Signs Temperature 98.6 F 09/30/16 10:00 Pulse Rate 64 09/30/16 10:00 Respiratory Rate 20 09/30/16 10:00 Blood Pressure 107/63 09/30/16 10:00 O2 Sat by Pulse Oximetry (%) 95 09/30/16 09:00 Constitutional: Yes: No Distress, Calm Cardiovascular: Yes: Regular Rate and Rhythm Respiratory: Yes: CTA Bilaterally Gastrointestinal: Yes: Normal Bowel Sounds, Soft, Tenderness. No: Distention Musculoskeletal: Yes: Joint Swelling (mild left knee swelling, tenderness, no warmth) Edema: No Labs: CBC, BMP 09/30/16 06:15 09/30/16 06:15 INR, PTT INR 0.98 (0.82-1.09) 09/29/16 03:30 Problem List - Problems (1) Colitis Code(s): K52.9 - NONINFECTIVE GASTROENTERITIS AND COLITIS, UNSPECIFIED (2) Diarrhea Code(s): R19.7 - DIARRHEA, UNSPECIFIED (3) Diverticula of colon Code(s): K57.30 - DVRTCLOS OF LG INT W/O PERFORATION OR ABSCESS W/O BLEEDING (4) CAD (coronary artery disease) Code(s): I25.10 - ATHSCL HEART DISEASE OF [place] CORONARY ARTERY W/O ANG PCTRS (5) CHF (congestive heart failure) Code(s): I50.9 - HEART FAILURE, UNSPECIFIED Assessment/Plan PLAN -- seen by GI this AM, advanced to regular diet -- continue with antibiotics -- MRCP ordered with regards to elevated alk PO4 -- will check left knee xray , consult Ortho, may need intra-articular steroid injection -- if tolerating diet, will dc fluids -- DVT prophylaxis-- on Brilinta
[2016-09-30] MEDS ORDERED: POTASSIUM CHLORIDE 40 MEQ/30 ML UNIT DOSE CUP PO ONE (13:30)
[2016-09-30] MEDS: metroNIDAZOLE 250 MG TABLET PO SCH ×2 (14:03→21:22)
[2016-09-30] MEDS: morphine CARPU-JECT 2 MG/1 ML DISP.SYRIN IVPUSH PRN (17:28)
--- NOTE | 2016-09-30 17:45 | CON.ORTH ---
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 Left drooping eyelid surgery 2015. 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 History of Recent Travel: No Home Medications - Allergies Allergies/Adverse Reactions: Allergies Allergy/AdvReac Type Severity Reaction Status Date / Time No Known Drug Allergies Allergy Verified 09/29/16 03:00 TOMATO SAUCE ONLY Allergy Uncoded 09/29/16 17:19 - Home Medications Home Medications: Ambulatory Orders Aspirin [ASA -] 81 mg PO DAILY 09/10/14 Gabapentin [Neurontin] 100 mg PO Q8H 09/10/14 Amlodipine Besylate 10 mg PO DAILY 04/23/16 Linagliptin [Tradjenta] 5 mg PO ACBK 04/23/16 Metoprolol Succinate [Toprol Xl] 50 mg PO DAILY 04/23/16 Pantoprazole Sodium [Protonix] 40 mg PO BID 04/23/16 Ticagrelor [Brilinta] 90 mg PO BID 04/23/16 Valacyclovir HCl [Valtrex -] 1,000 mg PO DAILY 04/23/16 Furosemide [Lasix -] 80 mg PO BID #60 tablet 07/31/16 Potassium Chloride 20 meq PO DAILY #30 tablet.er 07/31/16 Acetaminophen [Mapap] 500 mg PO TID 09/29/16 Ascorbic Acid [Vitamin C -] 500 mg PO DAILY 09/29/16 Clotrimazole [Lotrimin 1% Cream -] 1 applic TP DAILY 09/29/16 Insulin Glargine,Hum.rec.anlog [Lantus Solostar PEN -] 35 units SQ ACDIN Loteprednol Etab 0.5% Oph Susp [Lotemax (Nf)] 1 drop OS DAILY 09/29/16 Multivitamins [Tab-A-Vit -] 1 tab PO DAILY 09/29/16 Mupirocin Cream [Bactroban 2% Cream -] 1 applic TP DAILY 09/29/16 Nystatin Powder [Nystop Topical Powder -] 60 gm TP DAILY 09/29/16 Polyethylene Glycol 3350 [Purelax] 17 gm PO BID PRN 09/29/16 Sitagliptin Phosphate [Januvia] 100 mg PO ACBK 09/29/16 Family Disease History - Family Disease History Family Disease History: Diabetes: Sister ( of CLOUD rt cirrhosis ), Heart Disease: Father ( at age 33 with AL), Brother ( after CABG), CA: Mother ( of Ovarian cancer at age 57), Other: Sister Physical Exam for Ortho Vital Signs: Vital Signs Temperature 98.6 F 09/30/16 14:21 Pulse Rate 77 09/30/16 14:21 Respiratory Rate 16 09/30/16 14:21 Blood Pressure 119/54 09/30/16 14:21 O2 Sat by Pulse Oximetry (%) 95 09/30/16 09:00 Labs: CBC, BMP 09/30/16 06:15 09/30/16 06:15 INR, PTT INR 0.98 (0.82-1.09) 09/29/16 03:30 - Lower Extremity Knee: Yes: Left, Limited ROM, Pain, Swelling, Tenderness, Other (nvi) Imaging - Results X-ray: Report Reviewed, Image Reviewed Assessment/Plan 81 year old female from [facility], with a significant past medical history of nasal skin cancer, CAD (stent), AL, CHF, diabetes, HTN, HLD admitted for colitis. Now with c/o left knee pain for past 24 hours. No injury/trauma a/p- Left knee djd PT eval ROM exercises wbat pain control if no improvement in next 24 hours will give her lido/depo injection d/w Dr. Clay
[2016-09-30] MEDS ORDERED: INSULIN (NOVOLOG) ASPART 100 UNITS/ML 10ML VIAL ONE (18:10)
[2016-10-01] MEDS: morphine CARPU-JECT 2 MG/1 ML DISP.SYRIN IVPUSH PRN ×4 (00:54→22:56)
[2016-10-01] MEDS: metroNIDAZOLE 250 MG TABLET PO SCH ×3 (06:54→22:19)
[2016-10-01] MEDS: GABAPENTIN 100 MG CAPSULE (FP) PO SCH ×3 (06:58→22:19)
[2016-10-01] MEDS: INSULIN DETEMIR 100 UNITS/ML MDV SQ SCH ×2 (06:58→16:31)
[2016-10-01] MEDS: INSULIN SLIDING SCALE (NOVOLOG) 1 VIAL SQ SCH ×4 (06:59→22:22)
[2016-10-01] MEDS: D5-1/2NS+40 MEQ KCL - 1,000 ML IV SCH ×4 (07:00→19:30)
[2016-10-01 07:58] LABS: ALBUMIN 2.7 g/dl (3.4-5.0); CALCIUM 8.3 mg/dL (8.5-10.1); CREATININE 1.3 mg/dL (0.55-1.02)
[2016-10-01 08:01] LABS: BILIRUBIN,TOTAL 0.3 mg/dL (0.2-1.0); C-REACTIVE PROTEIN 8.3 MG/DL (0.00-0.3); TOT PROT 5.4 g/dl (6.4-8.2)
[2016-10-01 08:29] LABS: BASOPHIL 0.3 % (0-2.0); EOSINOPHIL 2.3 % (0-4.5); MCH 30.5 pg (25.7-33.7); MCHC 33.2 g/dl (32.0-36.0); MEAN CELL VOLUME 91.8 fl (80-96); MEAN PLT VOLUME 9.9 fl (7.5-11.1); NEUTROPHILS 83.1 % (42.8-82.8); PLATELET COUNT 162 K/MM3 (134-434); RDW 15.8 % (11.6-15.6); WHITE BLOOD COUNT 11.4 K/mm3 (4.0-10.0)
[2016-10-01] MEDS ORDERED: PT OWN MED DRAWER 7, Y5N ONE ×2 (09:02→09:09)
[2016-10-01] MEDS: TICAGRELOR 90 MG TABLET PO SCH ×2 (09:12→22:20)
[2016-10-01] MEDS: amLODIPine BESYLATE 10 MG TABLET (FP) PO SCH (09:12)
[2016-10-01] MEDS: CLOTRIMAZOLE 1% CREAM 15 GM TUBE TP SCH (09:12)
[2016-10-01] MEDS: NYSTATIN 100000 UNIT/GM TOPICAL OINTMENT 15 GM TUBE TP SCH ×2 (09:12→22:25)
[2016-10-01] MEDS: LEVOFLOXACIN 250 MG IVPB 50 ML IVPB SCH (09:12)
[2016-10-01] MEDS: valACYclovir HCL 500 MG TABLET (FP) PO SCH (09:13)
[2016-10-01] MEDS: MULTIVITAMINS THER W-MINERALS COMBO TABLET (FP) PO SCH (09:13)
[2016-10-01] MEDS: METOPROLOL SUCCINATE 50 MG TAB.SR.24H (FP) PO SCH (09:13)
[2016-10-01] MEDS: PANTOPRAZOLE 40 MG TABLET (FP) PO SCH ×2 (09:13→22:19)
--- NOTE | 2016-10-01 09:19 | PN ---
Progress Note, Physician Chief Complaint: no bm has abd pain no nausea, but does not want to eat breakfast - Current Medication List Current Medications: Active Medications Amlodipine Besylate (Norvasc -) 10 mg PO DAILY [facility] Last Admin: 10/01/16 09:12 Dose: 10 mg Clotrimazole (Lotrimin 1% Cream -) 1 applic TP DAILY [facility] Last Admin: 10/01/16 09:12 Dose: 1 applic Gabapentin (Neurontin -) 100 mg PO TID [facility] Last Admin: 10/01/16 06:58 Dose: 100 mg Levofloxacin (Levaquin 250 Mg Premixed Ivpb -) 50 mls @ 50 mls/hr IVPB DAILY [facility] Last Admin: 10/01/16 09:12 Dose: 50 mls/hr Dextrose/Sodium Chloride (D5-1/2ns+40 Meq Kcl -) 1,000 mls @ 70 mls/hr IV ASDIR [facility] Insulin Aspart (Novolog Vial Sliding Scale -) 1 vial SQ ACHS [facility] PRN Reason: Protocol Last Admin: 10/01/16 06:59 Dose: 5 units Insulin Detemir (Levemir Vial) 10 units SQ BIDAC [facility] Last Admin: 10/01/16 06:58 Dose: 10 units Metoprolol Succinate (Toprol Xl -) 50 mg PO DAILY [facility] Last Admin: 10/01/16 09:13 Dose: 50 mg Metronidazole (Flagyl -) 500 mg PO TID [facility] Last Admin: 10/01/16 06:54 Dose: 500 mg Morphine Sulfate (Morphine Injection -) 1 mg IVPUSH Q4H PRN PRN Reason: PAIN Last Admin: 10/01/16 07:09 Dose: 1 mg Multivitamins/Minerals (Theragran-M) 1 each PO DAILY [facility] Last Admin: 10/01/16 09:13 Dose: 1 each Nystatin (Mycostatin Ointment -) 1 applic TP BID [facility] Last Admin: 10/01/16 09:12 Dose: 1 applic Ondansetron HCl (Zofran Injection) 4 mg IVPB Q6H PRN PRN Reason: NAUSEA Pantoprazole Sodium (Protonix -) 40 mg PO BID [facility] Last Admin: 10/01/16 09:13 Dose: 40 mg Polyethylene Glycol (Miralax (For Daily Use) -) 17 gm PO BID PRN PRN Reason: CONSTIPATION Ticagrelor (Brilinta -) 90 mg PO BID [facility] Last Admin: 10/01/16 09:12 Dose: 90 mg Valacyclovir HCl (Valtrex -) 1,000 mg PO DAILY [facility] Last Admin: 10/01/16 09:13 Dose: 1,000 mg - Objective Vital Signs: Vital Signs Temperature 98.4 F 10/01/16 08:39 Pulse Rate 67 10/01/16 08:39 Respiratory Rate 20 10/01/16 08:39 Blood Pressure 105/49 10/01/16 08:39 O2 Sat by Pulse Oximetry (%) 95 09/30/16 21:00 Constitutional: Yes: No Distress Cardiovascular: Yes: Regular Rate and Rhythm Respiratory: Yes: Diminished Gastrointestinal: Yes: Normal Bowel Sounds, Soft, Distention, Tenderness Edema: No Labs: CBC, BMP 10/01/16 06:15 10/01/16 06:15 INR, PTT INR 0.98 (0.82-1.09) 09/29/16 03:30 Problem List - Problems (1) Colitis Code(s): K52.9 - NONINFECTIVE GASTROENTERITIS AND COLITIS, UNSPECIFIED (2) Diarrhea Code(s): R19.7 - DIARRHEA, UNSPECIFIED (3) Diverticula of colon Code(s): K57.30 - DVRTCLOS OF LG INT W/O PERFORATION OR ABSCESS W/O BLEEDING (4) CAD (coronary artery disease) Code(s): I25.10 - ATHSCL HEART DISEASE OF [place] CORONARY ARTERY W/O ANG PCTRS (5) CHF (congestive heart failure) Code(s): I50.9 - HEART FAILURE, UNSPECIFIED Assessment/Plan PLAN -- check FUA -- continue with antibiotics -- MRCP done-- report not available --ortho eval appreciated for arthritis of knee -- DVT prophylaxis-- on Brilinta
--- NOTE | 2016-10-01 15:11 | PN ---
GI Progress Note Subjective: GI Note: Diarrhea has completely subsided but no complaining of bloating discomfort. FUA suggest an ileus. Stool reveals WBCs but stool cultures has no growth. C diff still pending. CRP is dropping. - Objective Vital Signs: Vital Signs Temperature 98.2 F 10/01/16 14:00 Pulse Rate 66 10/01/16 14:00 Respiratory Rate 16 10/01/16 14:00 Blood Pressure 123/59 10/01/16 14:00 O2 Sat by Pulse Oximetry (%) 93 L 10/01/16 09:00 CBC,CMP WBC 11.4 K/mm3 (4.0-10.0) H 10/01/16 06:15 RBC 3.65 M/mm3 (3.60-5.2) 10/01/16 06:15 Hgb 11.1 GM/dL (10.7-15.3) 10/01/16 06:15 Hct 33.5 % (32.4-45.2) 10/01/16 06:15 MCV 91.8 fl (80-96) 10/01/16 06:15 MCHC 33.2 g/dl (32.0-36.0) 10/01/16 06:15 RDW 15.8 % (11.6-15.6) H 10/01/16 06:15 Plt Count 162 K/MM3 (134-434) 10/01/16 06:15 MPV 9.9 fl (7.5-11.1) 10/01/16 06:15 Neutrophils % 83.1 % (42.8-82.8) H 10/01/16 06:15 Lymphocytes % 7.2 % (8-40) L 10/01/16 06:15 Monocytes % 7.1 % (3.8-10.2) 10/01/16 06:15 Eosinophils % 2.3 % (0-4.5) D 10/01/16 06:15 Basophils % 0.3 % (0-2.0) 10/01/16 06:15 Band Neutrophils 4.0 % (0-10) D 09/29/16 03:30 Platelet Estimate Adequate (NORMAL) 09/29/16 03:30 Platelet Comment Few large plts 09/29/16 03:30 RBC Morphology Appears normal 09/29/16 03:30 Sodium 140 mmol/L (136-145) 10/01/16 06:15 Potassium 4.5 mmol/L (3.5-5.1) D 10/01/16 06:15 Chloride 107 mmol/L (98-107) 10/01/16 06:15 Carbon Dioxide 23 mmol/L (21-32) 10/01/16 06:15 Anion Gap 10 (8-16) 10/01/16 06:15 BUN 21 mg/dL (7-18) H D 10/01/16 06:15 Creatinine 1.3 mg/dL (0.55-1.02) H 10/01/16 06:15 Creat Clearance w eGFR 39.12 (>60) 10/01/16 06:15 POC Glucometer 181 UNITS (()) 10/01/16 11:35 Random Glucose 226 mg/dL (74-106) H D 10/01/16 06:15 Calcium 8.3 mg/dL (8.5-10.1) L 10/01/16 06:15 Magnesium 2.0 mg/dL (1.8-2.4) 09/29/16 13:55 Total Bilirubin 0.3 mg/dL (0.2-1.0) D 10/01/16 06:15 GGT 30 U/L (5-85) 09/30/16 06:15 AST 27 U/L (15-37) D 10/01/16 06:15 ALT 21 U/L (12-78) 10/01/16 06:15 Alkaline Phosphatase 118 U/L (45-117) H 10/01/16 06:15 LD Total 163 U/L (84-246) 09/29/16 13:55 Creatine Kinase 29 IU/L (26-192) 09/29/16 03:30 Troponin I < 0.02 ng/ml (0.00-0.05) 09/29/16 03:30 C-Reactive Protein 8.3 MG/DL (0.00-0.3) H D 10/01/16 06:15 B-Natriuretic Peptide 202.51 pg/ml (5-450) 09/29/16 03:30 Total Protein 5.4 g/dl (6.4-8.2) L 10/01/16 06:15 Albumin 2.7 g/dl (3.4-5.0) L 10/01/16 06:15 Total Amylase 19 U/L (25-115) L D 09/29/16 13:55 Lipase 113 U/L (73-393) 09/29/16 03:30 Constitutional: Anxious Gastrointestinal Inspection: Yes: Distention ...Auscultate: Yes: Hypoactive Bowel Sounds ...Palpate: Yes: Soft, Other (mild nonlocalizing diffuse tenderness) Labs: CBC, BMP 10/01/16 06:15 10/01/16 06:15 INR, PTT INR 0.98 (0.82-1.09) 09/29/16 03:30 Assessment/Plan ? Postcolitis ileus but have concern for mesenteric ischemia. No anion gap acidosis seen. MRCP not yet read but do not see obvious CBD obstruction or stones. Will start Miralax.
[2016-10-01] MEDS ORDERED: INSULIN DETEMIR 100 UNITS/ML MDV SQ ONE (19:01)
[2016-10-01] MEDS: POLYETHYLENE GLYCOL 3350 119 GM BTL PO SCH (22:20)
[2016-10-02] MEDS: metroNIDAZOLE 250 MG TABLET PO SCH ×3 (06:08→21:13)
[2016-10-02] MEDS: GABAPENTIN 100 MG CAPSULE (FP) PO SCH ×3 (06:08→21:13)
[2016-10-02] MEDS: INSULIN DETEMIR 100 UNITS/ML MDV SQ SCH ×2 (06:09→16:59)
[2016-10-02] MEDS: INSULIN SLIDING SCALE (NOVOLOG) 1 VIAL SQ SCH ×4 (06:10→21:19)
[2016-10-02 07:50] LABS: BASOPHIL 0.2 % (0-2.0); EOSINOPHIL 3.9 % (0-4.5); MCH 30.6 pg (25.7-33.7); MCHC 33.1 g/dl (32.0-36.0); MEAN CELL VOLUME 92.6 fl (80-96); MEAN PLT VOLUME 9.8 fl (7.5-11.1); NEUTROPHILS 81.7 % (42.8-82.8); PLATELET COUNT 169 K/MM3 (134-434); RDW 16.1 % (11.6-15.6); WHITE BLOOD COUNT 9.7 K/mm3 (4.0-10.0)
[2016-10-02 08:26] LABS: ALBUMIN 2.9 g/dl (3.4-5.0); BILIRUBIN,TOTAL 0.3 mg/dL (0.2-1.0); C-REACTIVE PROTEIN 4.8 MG/DL (0.00-0.3); CALCIUM 8.6 mg/dL (8.5-10.1); CREATININE 1.2 mg/dL (0.55-1.02); TOT PROT 5.4 g/dl (6.4-8.2)
--- NOTE | 2016-10-02 08:36 | PN ---
Progress Note (short form) - Note Progress Note: SUBJECTIVE: Patient seen and examined. Chart reviewed. No distress. Patient reports pain in the abdomen is better. Chief complaint: Pain in the left knee. OBJECTIVE: Intake & Output 10/01/16 10/02/16 10/02/16 23:59 07:59 15:59 Intake Total 605 0 Balance 605 0 Weight 90.446 kg Intake: IV 245 D5-1/2Ns+40 Meq KCl - 1, 245 000 ml @ 60 mls/hr IV ASDIR [facility] Rx#:[id number] IVPB 0 Oral 360 0 Other: Voiding Method Incontinent Incontinent # Unmeasured Voids Void 1 1 Bowel Movement No Weight Measurement Method [facility] Active Medications Amlodipine Besylate (Norvasc -) 10 mg PO DAILY [facility] Last Admin: 10/02/16 09:10 Dose: 10 mg Clotrimazole (Lotrimin 1% Cream -) 1 applic TP DAILY [facility] Last Admin: 10/02/16 09:09 Dose: 1 applic Gabapentin (Neurontin -) 100 mg PO TID [facility] Last Admin: 10/02/16 06:08 Dose: 100 mg Levofloxacin (Levaquin 250 Mg Premixed Ivpb -) 50 mls @ 50 mls/hr IVPB DAILY [facility] Last Admin: 10/02/16 09:09 Dose: 50 mls/hr Dextrose/Sodium Chloride (D5-1/2ns+40 Meq Kcl -) 1,000 mls @ 60 mls/hr IV ASDIR [facility] Last Admin: 10/01/16 19:30 Dose: 60 mls/hr Insulin Aspart (Novolog Vial Sliding Scale -) 1 vial SQ ACHS [facility] PRN Reason: Protocol Last Admin: 10/02/16 06:10 Dose: 5 units Insulin Detemir (Levemir Vial) 10 units SQ BIDAC [facility] Last Admin: 10/02/16 06:09 Dose: 10 units Metoprolol Succinate (Toprol Xl -) 50 mg PO DAILY [facility] Last Admin: 10/02/16 09:10 Dose: 50 mg Metronidazole (Flagyl -) 500 mg PO TID [facility] Last Admin: 10/02/16 06:08 Dose: 500 mg Morphine Sulfate (Morphine Injection -) 1 mg IVPUSH Q4H PRN PRN Reason: PAIN Last Admin: 10/01/16 22:56 Dose: 1 mg Multivitamins/Minerals (Theragran-M) 1 each PO DAILY [facility] Last Admin: 10/02/16 09:10 Dose: 1 each Non-Formulary Medication (Loteprednol Etab 0.5% Oph Susp [Lotemax (Nf)]) 1 drop OS DAILY [facility] Nystatin (Mycostatin Ointment -) 1 applic TP BID [facility] Last Admin: 10/02/16 09:10 Dose: 1 applic Ondansetron HCl (Zofran Injection) 4 mg IVPB Q6H PRN PRN Reason: NAUSEA Pantoprazole Sodium (Protonix -) 40 mg PO BID [facility] Last Admin: 10/02/16 09:10 Dose: 40 mg Polyethylene Glycol (Miralax (For Daily Use) -) 17 gm PO BID [facility] Last Admin: 10/01/16 22:20 Dose: 17 gm Ticagrelor (Brilinta -) 90 mg PO BID [facility] Last Admin: 10/02/16 09:09 Dose: 90 mg Valacyclovir HCl (Valtrex -) 1,000 mg PO DAILY [facility] Last Admin: 10/02/16 09:11 Dose: 1,000 mg CBC, BMP 10/02/16 06:05 10/02/16 06:05 Laboratory Results - last 24 hr 09/29/16 10/01/16 10/01/16 13:13 11:35 16:28 WBC RBC Hgb Hct MCV MCHC RDW Plt Count MPV Neutrophils % Lymphocytes % Monocytes % Eosinophils % Basophils % Sodium Potassium Chloride Carbon Dioxide Anion Gap BUN Creatinine Creat Clearance w eGFR POC Glucometer 418 181 164 Random Glucose Calcium Total Bilirubin AST ALT Alkaline Phosphatase LD Total Creatine Kinase C-Reactive Protein Total Protein Albumin Total Amylase 10/01/16 10/02/16 10/02/16 21:25 05:44 06:05 WBC RBC Hgb Hct MCV MCHC RDW Plt Count MPV Neutrophils % Lymphocytes % Monocytes % Eosinophils % Basophils % Sodium 140 Potassium 4.7 Chloride 109 H Carbon Dioxide 21 Anion Gap 10 BUN 18 Creatinine 1.2 H Creat Clearance w eGFR 42.90 POC Glucometer 224 223 Random Glucose 236 H Calcium 8.6 Total Bilirubin 0.3 AST 19 D ALT 19 Alkaline Phosphatase 127 H LD Total 143 Creatine Kinase 55 C-Reactive Protein 4.8 H D Total Protein 5.4 L Albumin 2.9 L Total Amylase 28 D 10/02/16 06:05 WBC 9.7 RBC 3.61 Hgb 11.0 Hct 33.4 MCV 92.6 MCHC 33.1 RDW 16.1 H Plt Count 169 MPV 9.8 Neutrophils % 81.7 Lymphocytes % 7.6 L Monocytes % 6.6 Eosinophils % 3.9 Basophils % 0.2 Sodium Potassium Chloride Carbon Dioxide Anion Gap BUN Creatinine Creat Clearance w eGFR POC Glucometer Random Glucose Calcium Total Bilirubin AST ALT Alkaline Phosphatase LD Total Creatine Kinase C-Reactive Protein Total Protein Albumin Total Amylase Microbiology 09/29/16 03:30 Blood Culture - Preliminary Blood - Peripheral Venous NO GROWTH OBTAINED AFTER 72 HOURS, INCUBATION TO CONTINUE FOR 2 DAYS. 09/29/16 03:30 Blood Culture - Preliminary Blood - Peripheral Venous NO GROWTH OBTAINED AFTER 72 HOURS, INCUBATION TO CONTINUE FOR 2 DAYS. 09/29/16 22:40 Urine Culture - Final Urine - Urine - Catheterized NO GROWTH OBTAINED PHYSICAL EXAMINATION: Constitutional: Yes: No Distress Cardiovascular: Yes: Regular Rate and Rhythm Respiratory: Yes: Diminished Gastrointestinal: Yes: Soft. Mild diffuse tenderness generalized. No: Rigidity, Rebound. Edema: No ASSESSMENT & PLAN: - Clinically better. - Continue present care. - Continue mild hydration. - MRI of the abdomen is pending. - Mesenteric ischemia ? - Will follow. - Ortho to follow for Depo injection. Problem List - Problems (1) Colitis Code(s): K52.9 - NONINFECTIVE GASTROENTERITIS AND COLITIS, UNSPECIFIED (2) Diarrhea Code(s): R19.7 - DIARRHEA, UNSPECIFIED (3) Diverticula of colon Code(s): K57.30 - DVRTCLOS OF LG INT W/O PERFORATION OR ABSCESS W/O BLEEDING (4) CAD (coronary artery disease) Code(s): I25.10 - ATHSCL HEART DISEASE OF [place] CORONARY ARTERY W/O ANG PCTRS (5) CHF (congestive heart failure) Code(s): I50.9 - HEART FAILURE, UNSPECIFIED Documentation prepared by Merline Barker, acting as a certified medical technician for Kathleen Gudino MD. Problem List - Problems (1) Colitis Code(s): K52.9 - NONINFECTIVE GASTROENTERITIS AND COLITIS, UNSPECIFIED (2) CHF (congestive heart failure) Code(s): I50.9 - HEART FAILURE, UNSPECIFIED (3) Diabetes Code(s): E11.9 - TYPE 2 DIABETES MELLITUS WITHOUT COMPLICATIONS Qualifiers: Diabetes mellitus type: type 2 Diabetes mellitus complication status: with hypoglycemia Diabetes mellitus complication detail: without coma Diabetes mellitus emt intermediate insulin use: unspecified [facility] insulin use status Qualified Code(s): E11.649 - Type 2 diabetes mellitus with hypoglycemia without coma; Z79.4 - intermediate frame tender (current) use of insulin
--- NOTE | 2016-10-02 09:04 | PN ---
Progress Note (short form) - Note Progress Note: Ortho Pt seen and examined still c/o pain in left knee--> pt is a nonambulator + swelling, + ttp, decr rom nvi a/p- left knee djd will order lido/depo to be injected into left knee ROM exercises pain control will follow d/w Dr. Clay
[2016-10-02] MEDS ORDERED: PT OWN MED DRAWER 7, Y5N ONE ×3 (09:06→20:04)
[2016-10-02] MEDS: LEVOFLOXACIN 250 MG IVPB 50 ML IVPB SCH (09:09)
[2016-10-02] MEDS: CLOTRIMAZOLE 1% CREAM 15 GM TUBE TP SCH (09:09)
[2016-10-02] MEDS: TICAGRELOR 90 MG TABLET PO SCH ×2 (09:09→21:13)
[2016-10-02] MEDS: NYSTATIN 100000 UNIT/GM TOPICAL OINTMENT 15 GM TUBE TP SCH ×2 (09:10→21:19)
[2016-10-02] MEDS: PANTOPRAZOLE 40 MG TABLET (FP) PO SCH ×2 (09:10→21:13)
[2016-10-02] MEDS: MULTIVITAMINS THER W-MINERALS COMBO TABLET (FP) PO SCH (09:10)
[2016-10-02] MEDS: amLODIPine BESYLATE 10 MG TABLET (FP) PO SCH (09:10)
[2016-10-02] MEDS: METOPROLOL SUCCINATE 50 MG TAB.SR.24H (FP) PO SCH (09:10)
[2016-10-02] MEDS: valACYclovir HCL 500 MG TABLET (FP) PO SCH (09:11)
[2016-10-02] MEDS ORDERED: methylPREDNISolone ACET (DEPO) 80 MG/1 ML VIAL IAR ONE (09:30)
[2016-10-02] MEDS ORDERED: LIDOCAINE HCL 1%, 10 MG/ML (20ML VIAL) ONE (11:37)
[2016-10-02] MEDS: prednisoLONE ACETATE 0.12% OPTH SUSP- 5 ML BOTTLE OS SCH (11:48)
[2016-10-02] MEDS: POLYETHYLENE GLYCOL 3350 119 GM BTL PO SCH ×2 (11:50→21:18)
--- NOTE | 2016-10-02 12:26 | PN ---
GI Progress Note Subjective: GI NOte: Lower abdominal pain has resolved but now has dyspepsia. No BM yet and feels more distended. C diff still pending. Tolerating diet. - Objective Vital Signs: Vital Signs Temperature 98.5 F 10/01/16 22:00 Pulse Rate 71 10/01/16 22:00 Respiratory Rate 18 10/01/16 22:00 Blood Pressure 114/49 10/01/16 22:00 O2 Sat by Pulse Oximetry (%) 95 10/01/16 21:00 Gastrointestinal Inspection: Yes: Distention ...Auscultate: Yes: Hypoactive Bowel Sounds ...Palpate: Yes: Soft, Other (niontender) Labs: CBC, BMP 10/02/16 06:05 10/02/16 06:05 INR, PTT INR 0.98 (0.82-1.09) 09/29/16 03:30 Laboratory Tests 09/30/16 10/01/16 10/02/16 06:15 06:15 06:05 WBC Hgb C-Reactive Protein 13.6 H D 8.3 H D 4.8 H D 10/02/16 06:05 WBC 9.7 Hgb 11.0 C-Reactive Protein Assessment/Plan Post colitis ileus. Await cultures. Continue Miralax. Will add Mylanta for dyspepsia. Will get FUA.
[2016-10-02] MEDS ORDERED: MAG HYDROX/AL HYDROX/SIMETH 30 ML UNIT-DOSE CUP PO PRN (12:27)
--- NOTE | 2016-10-02 13:37 | PROC ---
Arthrocentesis - Arthrocentesis Indication: Steriod Injection Arthrocentesis Site: left: knee Skin prep: Alcohol Anesthesia: 1% Lidocaine Joint Injection of: Depo Medrol
--- NOTE | 2016-10-02 14:12 | PN ---
Progress Note (short form) - Note Progress Note: Subjective Pt is awake, alert and oriented No s/s of acute distress No diarrhea and vomiting since Sunday Pt is tolerating diet well Pt is complaining of worsening abdominal distention no more diffuse abdominal pain some mild heart burn and epigastric pain no fever or chills Objective Last Vital Signs Temp Pulse Resp BP Pulse Ox 98.8 F 77 18 139/62 95 10/02/16 09:00 10/02/16 09:00 10/02/16 11:00 10/02/16 09:00 10/02/16 11:00 AAOX3 S1, s2, no murmur CTA b/l Abdomen distended, normoactive bowel sounds, soft, epigastric tenderness trace lower ext edema CBC, BMP 10/02/16 06:05 10/02/16 06:05 Laboratory Tests 10/02/16 06:05 Total Bilirubin 0.3 AST 19 D ALT 19 Alkaline Phosphatase 127 H LD Total 143 Creatine Kinase 55 C-Reactive Protein 4.8 H D Total Protein 5.4 L Albumin 2.[address] abdomen 09/29/16 Questionable mild colitis. No evidence of SBO or acute pathology within the abdomen or pelvis. Assesment Post colitis Ileus Elevated ALP Plan Continue Miralax Continue Senna Start Mylanta Consider PPI/[id number] Xray abdomen flat and upright pending stool culture pending MRCP result Problem List - Problems (1) Colitis Code(s): K52.9 - NONINFECTIVE GASTROENTERITIS AND COLITIS, UNSPECIFIED (2) Positive occult stool blood test Code(s): R19.5 - OTHER FECAL ABNORMALITIES (3) Colon polyp Code(s): K63.5 - POLYP OF COLON (4) Diverticula of colon Code(s): K57.30 - DVRTCLOS OF LG INT W/O PERFORATION OR ABSCESS W/O BLEEDING (5) Alkaline phosphatase elevation Code(s): R74.8 - ABNORMAL LEVELS OF OTHER SERUM ENZYMES (6) Nausea & vomiting Code(s): R11.2 - NAUSEA WITH VOMITING, UNSPECIFIED (7) Diarrhea Code(s): R19.7 - DIARRHEA, UNSPECIFIED (8) Hypokalemia, gastrointestinal losses Code(s): E87.6 - HYPOKALEMIA (9) High anion gap metabolic acidosis Code(s): E87.2 - ACIDOSIS (10) Hyperglycemia Code(s): R73.9 - HYPERGLYCEMIA, UNSPECIFIED (11) Hyperglycemia due to type 2 diabetes mellitus Code(s): E11.65 - TYPE 2 DIABETES MELLITUS WITH HYPERGLYCEMIA
[2016-10-02] MEDS: morphine CARPU-JECT 2 MG/1 ML DISP.SYRIN IVPUSH PRN (20:12)
[2016-10-02] MEDS: D5-1/2NS+40 MEQ KCL - 1,000 ML IV SCH (20:16)
[2016-10-03] MEDS: GABAPENTIN 100 MG CAPSULE (FP) PO SCH ×3 (05:15→21:09)
[2016-10-03] MEDS: metroNIDAZOLE 250 MG TABLET PO SCH ×3 (05:15→21:09)
[2016-10-03] MEDS: D5-1/2NS+40 MEQ KCL - 1,000 ML IV SCH ×2 (05:15→22:14)
[2016-10-03] MEDS: INSULIN DETEMIR 100 UNITS/ML MDV SQ SCH ×2 (06:15→17:28)
[2016-10-03] MEDS: INSULIN SLIDING SCALE (NOVOLOG) 1 VIAL SQ SCH ×4 (06:17→21:12)
[2016-10-03] MEDS ORDERED: INSULIN DETEMIR 100 UNITS/ML MDV SQ ONE ×3 (09:18→18:00)
[2016-10-03] MEDS ORDERED: PT OWN MED DRAWER 7, Y5N ONE ×2 (09:27→09:29)
[2016-10-03] MEDS: POLYETHYLENE GLYCOL 3350 119 GM BTL PO SCH ×2 (09:31→21:10)
[2016-10-03] MEDS: NYSTATIN 100000 UNIT/GM TOPICAL OINTMENT 15 GM TUBE TP SCH ×2 (09:31→21:10)
[2016-10-03] MEDS: TICAGRELOR 90 MG TABLET PO SCH ×2 (09:31→21:09)
[2016-10-03] MEDS: LEVOFLOXACIN 250 MG IVPB 50 ML IVPB SCH (09:31)
[2016-10-03] MEDS: CLOTRIMAZOLE 1% CREAM 15 GM TUBE TP SCH (09:31)
[2016-10-03] MEDS: amLODIPine BESYLATE 10 MG TABLET (FP) PO SCH (09:32)
[2016-10-03] MEDS: MULTIVITAMINS THER W-MINERALS COMBO TABLET (FP) PO SCH (09:32)
[2016-10-03] MEDS: PANTOPRAZOLE 40 MG TABLET (FP) PO SCH ×2 (09:32→21:09)
[2016-10-03] MEDS: prednisoLONE ACETATE 0.12% OPTH SUSP- 5 ML BOTTLE OS SCH (09:32)
[2016-10-03] MEDS: valACYclovir HCL 500 MG TABLET (FP) PO SCH (09:33)
[2016-10-03] MEDS: METOPROLOL SUCCINATE 50 MG TAB.SR.24H (FP) PO SCH (09:33)
[2016-10-03] MEDS ORDERED: INSULIN (NOVOLOG) ASPART 100 UNITS/ML 10ML VIAL ONE ×2 (11:34→18:00)
--- NOTE | 2016-10-03 13:30 | PN ---
Progress Note, Physician Chief Complaint: does not have much appetite Has abd pain No nausea No BM yet but is passing flatus - Current Medication List Current Medications: Active Medications Al Hydroxide/Mg Hydroxide (Mylanta Oral Suspension -) 30 ml PO Q6H PRN PRN Reason: DYSPEPSIA Amlodipine Besylate (Norvasc -) 10 mg PO DAILY [facility] Last Admin: 10/03/16 09:32 Dose: 10 mg Clotrimazole (Lotrimin 1% Cream -) 1 applic TP DAILY [facility] Last Admin: 10/03/16 09:31 Dose: 1 applic Docusate Sodium (Colace -) 100 mg PO TID [facility] Gabapentin (Neurontin -) 100 mg PO TID [facility] Last Admin: 10/03/16 05:15 Dose: 100 mg Levofloxacin (Levaquin 250 Mg Premixed Ivpb -) 50 mls @ 50 mls/hr IVPB DAILY [facility] Last Admin: 10/03/16 09:31 Dose: 50 mls/hr Dextrose/Sodium Chloride (D5-1/2ns+40 Meq Kcl -) 1,000 mls @ 60 mls/hr IV ASDIR [facility] Last Admin: 10/03/16 05:15 Dose: 60 mls/hr Insulin Aspart (Novolog Vial Sliding Scale -) 1 vial SQ ACHS [facility] PRN Reason: Protocol Last Admin: 10/03/16 11:38 Dose: 5 units Insulin Detemir (Levemir Vial) 10 units SQ BIDAC [facility] Last Admin: 10/03/16 06:15 Dose: 10 units Metoprolol Succinate (Toprol Xl -) 50 mg PO DAILY [facility] Last Admin: 10/03/16 09:33 Dose: 50 mg Metronidazole (Flagyl -) 500 mg PO TID [facility] Last Admin: 10/03/16 05:15 Dose: 500 mg Morphine Sulfate (Morphine Injection -) 1 mg IVPUSH Q4H PRN PRN Reason: PAIN Last Admin: 10/02/16 20:12 Dose: 1 mg Multivitamins/Minerals (Theragran-M) 1 each PO DAILY [facility] Last Admin: 10/03/16 09:32 Dose: 1 each Nystatin (Mycostatin Ointment -) 1 applic TP BID [facility] Last Admin: 10/03/16 09:31 Dose: 1 applic Ondansetron HCl (Zofran Injection) 4 mg IVPB Q6H PRN PRN Reason: NAUSEA Pantoprazole Sodium (Protonix -) 40 mg PO BID [facility] Last Admin: 10/03/16 09:32 Dose: 40 mg Polyethylene Glycol (Miralax (For Daily Use) -) 17 gm PO BID [facility] Last Admin: 10/03/16 09:31 Dose: 17 gm Prednisolone Acetate (Pred Mild 0.12% -) 1 drop OS DAILY [facility] Last Admin: 10/03/16 09:32 Dose: 1 dose Ticagrelor (Brilinta -) 90 mg PO BID [facility] Last Admin: 10/03/16 09:31 Dose: 90 mg Valacyclovir HCl (Valtrex -) 1,000 mg PO DAILY [facility] Last Admin: 10/03/16 09:33 Dose: 1,000 mg - Objective Vital Signs: Vital Signs Temperature 98.2 F 10/03/16 08:39 Pulse Rate 70 10/03/16 08:39 Respiratory Rate 20 10/03/16 08:39 Blood Pressure 117/55 10/03/16 08:39 O2 Sat by Pulse Oximetry (%) 97 10/03/16 09:00 Constitutional: Yes: Calm Cardiovascular: Yes: Regular Rate and Rhythm Respiratory: Yes: CTA Bilaterally Gastrointestinal: Yes: Normal Bowel Sounds, Soft, Distention (tensed abd), Tenderness (diffuse) Edema: No Psychiatric: Yes: Alert, Oriented Labs: CBC, BMP 10/02/16 06:05 10/02/16 06:05 INR, PTT INR 0.98 (0.82-1.09) 09/29/16 03:30 Problem List - Problems (1) Colitis Code(s): K52.9 - NONINFECTIVE GASTROENTERITIS AND COLITIS, UNSPECIFIED (2) Diarrhea Code(s): R19.7 - DIARRHEA, UNSPECIFIED Qualifiers: Diarrhea type: presumed infectious Qualified Code(s): A09 - Infectious gastroenteritis and colitis, unspecified (3) Diverticula of colon Code(s): K57.30 - DVRTCLOS OF LG INT W/O PERFORATION OR ABSCESS W/O BLEEDING (4) CAD (coronary artery disease) Code(s): I25.10 - ATHSCL HEART DISEASE OF [place] CORONARY ARTERY W/O ANG PCTRS Qualifiers: Coronary Disease-Associated Artery/Lesion type: [place] artery (5) CHF (congestive heart failure) Code(s): I50.9 - HEART FAILURE, UNSPECIFIED (6) Ileus Code(s): K56.7 - ILEUS, UNSPECIFIED Assessment/Plan PLAN -- FUA report noted -- On Miralax, will add Colace -- continue with antibiotics -- received steroid injections on left knee -- DVT prophylaxis-- on Brilinta -- GI follow up
[2016-10-03] MEDS: DOCUSATE SODIUM 100 MG CAPSULE (FP) PO SCH ×2 (13:36→21:09)
--- NOTE | 2016-10-03 13:44 | PN ---
GI Progress Note Subjective: Called to evaluate abdominal distention. Per Dr. Dowling her abdominal distention is worse than previous. I have not evaluated the patient as of yet. No vomiting patient complains of mid upper abdominal pain loose BM's this morning per nursing - Objective Vital Signs: Vital Signs Temperature 98.2 F 10/03/16 08:39 Pulse Rate 70 10/03/16 08:39 Respiratory Rate 20 10/03/16 08:39 Blood Pressure 117/55 10/03/16 08:39 O2 Sat by Pulse Oximetry (%) 97 10/03/16 09:00 Constitutional: Calm Eyes: No: Sclera Icterus Cardiovascular: Yes: Regular Rate and Rhythm Respiratory: Yes: Diminished (at bases, poor insp effort) Gastrointestinal Inspection: Yes: Distention ...Auscultate: Yes: Normoactive Bowel Sounds ...Palpate: Yes: Tenderness (mid abdomen) ...Percussion: Yes: Tympanitic (mildly) Neurological: Yes: Alert, Oriented Labs: CBC, BMP 10/02/16 06:05 10/02/16 06:05 INR, PTT INR 0.98 (0.82-1.09) 09/29/16 03:30 Problem List - Problems (1) Colitis Assessment/Plan: Worsening abdominal pain / distention today Advised the following: Repeat CT scan with PO contrast to assess for progression of colitis / develop of colon distention / alternate pathology Changed to clear liquid diet Ordered stool for C. diff. Ordered on admission but not performed as of yet Surgical consult Discussed with Dr. Dowling Code(s): K52.9 - NONINFECTIVE GASTROENTERITIS AND COLITIS, UNSPECIFIED
[2016-10-03] MEDS: morphine CARPU-JECT 2 MG/1 ML DISP.SYRIN IVPUSH PRN ×2 (17:23→22:08)
[2016-10-04] MEDS: metroNIDAZOLE 250 MG TABLET PO SCH ×3 (05:33→21:22)
[2016-10-04] MEDS: GABAPENTIN 100 MG CAPSULE (FP) PO SCH ×3 (05:34→21:23)
[2016-10-04] MEDS: DOCUSATE SODIUM 100 MG CAPSULE (FP) PO SCH (05:34)
[2016-10-04] MEDS: INSULIN DETEMIR 100 UNITS/ML MDV SQ SCH ×2 (06:24→17:19)
[2016-10-04] MEDS: INSULIN SLIDING SCALE (NOVOLOG) 1 VIAL SQ SCH ×4 (06:24→21:23)
[2016-10-04 07:44] LABS: BASOPHIL 0.4 % (0-2.0); EOSINOPHIL 2.3 % (0-4.5); MCH 30.7 pg (25.7-33.7); MCHC 33.6 g/dl (32.0-36.0); MEAN CELL VOLUME 91.5 fl (80-96); NEUTROPHILS 81.7 % (42.8-82.8); PLATELET COUNT 181 K/MM3 (134-434); RDW 16.2 % (11.6-15.6)
[2016-10-04 08:21] LABS: ALBUMIN 2.7 g/dl (3.4-5.0); BILIRUBIN,TOTAL 0.3 mg/dL (0.2-1.0); CALCIUM 8.3 mg/dL (8.5-10.1); TOT PROT 5.3 g/dl (6.4-8.2)
[2016-10-04] MEDS ORDERED: PT OWN MED DRAWER 7, Y5N ONE (09:27)
[2016-10-04] MEDS: MULTIVITAMINS THER W-MINERALS COMBO TABLET (FP) PO SCH (09:28)
[2016-10-04] MEDS: METOPROLOL SUCCINATE 50 MG TAB.SR.24H (FP) PO SCH (09:28)
[2016-10-04] MEDS: PANTOPRAZOLE 40 MG TABLET (FP) PO SCH ×2 (09:28→21:24)
[2016-10-04] MEDS: amLODIPine BESYLATE 10 MG TABLET (FP) PO SCH (09:28)
[2016-10-04] MEDS: CLOTRIMAZOLE 1% CREAM 15 GM TUBE TP SCH (09:29)
[2016-10-04] MEDS: POLYETHYLENE GLYCOL 3350 119 GM BTL PO SCH ×4 (09:29→21:22)
[2016-10-04] MEDS: LEVOFLOXACIN 250 MG IVPB 50 ML IVPB SCH (09:29)
[2016-10-04] MEDS: TICAGRELOR 90 MG TABLET PO SCH ×2 (09:29→21:22)
[2016-10-04] MEDS: prednisoLONE ACETATE 0.12% OPTH SUSP- 5 ML BOTTLE OS SCH (09:30)
[2016-10-04] MEDS: NYSTATIN 100000 UNIT/GM TOPICAL OINTMENT 15 GM TUBE TP SCH ×2 (09:30→21:23)
[2016-10-04] MEDS: valACYclovir HCL 500 MG TABLET (FP) PO SCH (09:30)
--- NOTE | 2016-10-04 10:04 | PN ---
Physical Exam: SUBJECTIVE: Patient seen and examined Pt has mild to moderate discomfort Pt is complaining of abdominal pain and discomfort C/o abdominal distension No bowel movement since Sunday Pt is still passing gas no fever, no chills, no nausea or vomiting Pt is complaining about the liquid diet Pt c/o about IV fluid since she urinate so much OBJECTIVE: Vital Signs Period Temp Pulse Resp BP Sys/Emerson Pulse Ox Last 24 Hr 97.9 F-98.6 F 68-72 18-20 124-137/61-72 96 GENERAL: The patient is awake, alert, and fully oriented, in no acute distress. HEAD: Normal with no signs of trauma. LUNGS: Breath sounds equal, clear to auscultation bilaterally, no wheezes, no crackles, no accessory muscle use. HEART: Regular rate and rhythm, S1, S2 without murmur, rub or gallop. ABDOMEN: Soft, epigastric tenderness, distended, normoactive bowel sounds, no guarding, no rebound, no hepatosplenomegaly, no masses. NEUROLOGICAL: Normal speech, gait not observed. PSYCH: Normal mood, normal affect. SKIN: Warm, dry, normal turgor, no rashes or lesions noted Laboratory Results - last 24 hr 10/03/16 10/03/16 10/03/16 11:37 16:41 21:12 WBC RBC Hgb Hct MCV MCHC RDW Plt Count MPV Neutrophils % Lymphocytes % Monocytes % Eosinophils % Basophils % Sodium Potassium Chloride Carbon Dioxide Anion Gap BUN Creatinine Creat Clearance w eGFR POC Glucometer 224 226 190 Random Glucose Calcium Total Bilirubin AST ALT Alkaline Phosphatase Total Protein Albumin 10/04/16 10/04/16 10/04/16 06:19 06:50 06:50 WBC 9.0 RBC 3.74 Hgb 11.5 Hct 34.2 MCV 91.5 MCHC 33.6 RDW 16.2 H Plt Count 181 MPV 9.0 Neutrophils % 81.7 Lymphocytes % 6.4 L Monocytes % 9.2 Eosinophils % 2.3 Basophils % 0.4 Sodium 139 Potassium 5.0 Chloride 108 H Carbon Dioxide 22 Anion Gap 9 BUN 14 D Creatinine 1.0 Creat Clearance w eGFR 52.95 POC Glucometer 180 Random Glucose 189 H Calcium 8.3 L Total Bilirubin 0.3 AST 65 H D ALT 31 D Alkaline Phosphatase 360 H D Total Protein 5.3 L Albumin 2.7 L Active Medications Generic Name Dose Route Start Last Admin Trade Name Freq PRN Reason Stop Dose Admin Al Hydroxide/Mg Hydroxide 30 ml 10/02/16 12:27 Mylanta Oral Suspension - PO Q6H PRN DYSPEPSIA Amlodipine Besylate 10 mg 09/29/16 10:00 10/04/16 09:28 Norvasc - PO 10 mg DAILY JOSE ELIAS Administration Clotrimazole 1 applic 09/29/16 10:00 10/04/16 09:29 Lotrimin 1% Cream - TP 1 applic DAILY JOSE ELIAS Administration Gabapentin 100 mg 09/29/16 14:00 10/04/16 05:34 Neurontin - PO 100 mg TID JOSE ELIAS Administration Levofloxacin 50 mls @ 50 mls/hr 09/30/16 10:00 10/04/16 09:29 Levaquin 250 Mg Premixed Ivpb - IVPB 50 mls/hr DAILY JOSE ELIAS Administration Dextrose/Sodium Chloride 1,000 mls @ 60 mls/hr 10/01/16 19:24 10/03/16 22:14 D5-1/2ns+40 Meq Kcl - IV 60 mls/hr ASDIR JOSE ELIAS Administration Insulin Aspart 1 vial 09/29/16 11:00 10/04/16 06:24 Novolog Vial Sliding Scale - SQ 3 units ACHS JOSE ELIAS Administration Protocol Insulin Detemir 10 units 09/29/16 16:30 10/04/16 06:24 Levemir Vial SQ 10 units BIDAC JOSE ELIAS Administration Metoprolol Succinate 50 mg 09/29/16 10:00 10/04/16 09:28 Toprol Xl - PO 50 mg DAILY JOSE ELIAS Administration Metronidazole 500 mg 09/30/16 14:00 10/04/16 05:33 Flagyl - PO 500 mg TID JOSE ELIAS Administration Multivitamins/Minerals 1 each 09/29/16 10:00 10/04/16 09:28 Theragran-M PO 1 each DAILY JOSE ELIAS Administration Nystatin 1 applic 09/29/16 22:00 10/04/16 09:30 Mycostatin Ointment - TP 1 applic BID JOSE ELIAS Administration Ondansetron HCl 4 mg 09/29/16 09:24 Zofran Injection IVPB Q6H PRN NAUSEA Pantoprazole Sodium 40 mg 09/29/16 10:00 10/04/16 09:28 Protonix - PO 40 mg BID JOSE ELIAS Administration Polyethylene Glycol 17 gm 10/04/16 10:00 Miralax (For Daily Use) - PO QID JOSE ELIAS Prednisolone Acetate 1 drop 10/02/16 10:00 10/04/16 09:30 Pred Mild 0.12% - OS 1 dose DAILY JOSE ELIAS Administration Senna/Docusate Sodium 1 tablet 10/04/16 10:00 Pericolace - PO BID JOSE ELIAS Ticagrelor 90 mg 09/29/16 10:00 10/04/16 09:29 Brilinta - PO 90 mg BID JOSE ELIAS Administration Valacyclovir HCl 1,000 mg 09/29/16 10:00 10/04/16 09:30 Valtrex - PO 1,000 mg DAILY JOSE ELIAS Administration ASSESSMENT/PLAN: Colonic Ileus/Constipation CT abdomen was done yesterday and showed colon filled with stool, no colitis, no acute pathology Abdomen is still very distended with epigastric tenderness Will increase Miralax to q6h Will have trial of mineral oil enema x2 On stool softener On Mylanta PRN Stool studies has been negative so far Stool C diff was reordered yesterday, pending result No more electrolytes imbalances, continue to monitor Consider reducing IV fluid rate to 42ml/h Continue liquid diet while Pt is still very distended and not having bowel movement Will reassess in afternoon to see if there need to be further intervention Problem List - Problems (1) Colitis Code(s): K52.9 - NONINFECTIVE GASTROENTERITIS AND COLITIS, UNSPECIFIED (2) Positive occult stool blood test Code(s): R19.5 - OTHER FECAL ABNORMALITIES (3) Colon polyp Code(s): K63.5 - POLYP OF COLON (4) Diverticula of colon Code(s): K57.30 - DVRTCLOS OF LG INT W/O PERFORATION OR ABSCESS W/O BLEEDING (5) Alkaline phosphatase elevation Code(s): R74.8 - ABNORMAL LEVELS OF OTHER SERUM ENZYMES (6) Nausea & vomiting Code(s): R11.2 - NAUSEA WITH VOMITING, UNSPECIFIED (7) Diarrhea Code(s): R19.7 - DIARRHEA, UNSPECIFIED Qualifiers: Diarrhea type: presumed infectious Qualified Code(s): A09 - Infectious gastroenteritis and colitis, unspecified (8) Hypokalemia, gastrointestinal losses Code(s): E87.6 - HYPOKALEMIA (9) High anion gap metabolic acidosis Code(s): E87.2 - ACIDOSIS (10) Hyperglycemia Code(s): R73.9 - HYPERGLYCEMIA, UNSPECIFIED (11) Hyperglycemia due to type 2 diabetes mellitus Code(s): E11.65 - TYPE 2 DIABETES MELLITUS WITH HYPERGLYCEMIA Visit type - Emergency Visit Emergency Visit: Yes ED Registration Date: 09/29/16 Care time: The patient presented to the Emergency Department on the above date and was hospitalized for further evaluation of their emergent condition. - New Patient This patient is new to me today: No - Critical Care Critical Care patient: No
--- NOTE | 2016-10-04 10:45 | PN ---
Progress Note (short form) - Note Progress Note: Ortho Pt seen and examined feeling much better s/p cortisone inj into left knee decr pain, incr rom nvi a/p Orthopedically stable NTD d/w Dr. Clay
--- NOTE | 2016-10-04 11:36 | PN ---
Progress Note, Physician Chief Complaint: does not have much appetite Has abd pain No nausea No BM yet but is passing flatus - Current Medication List Current Medications: Active Medications Al Hydroxide/Mg Hydroxide (Mylanta Oral Suspension -) 30 ml PO Q6H PRN PRN Reason: DYSPEPSIA Amlodipine Besylate (Norvasc -) 10 mg PO DAILY [facility] Last Admin: 10/04/16 09:28 Dose: 10 mg Clotrimazole (Lotrimin 1% Cream -) 1 applic TP DAILY [facility] Last Admin: 10/04/16 09:29 Dose: 1 applic Gabapentin (Neurontin -) 100 mg PO TID [facility] Last Admin: 10/04/16 05:34 Dose: 100 mg Levofloxacin (Levaquin 250 Mg Premixed Ivpb -) 50 mls @ 50 mls/hr IVPB DAILY [facility] Last Admin: 10/04/16 09:29 Dose: 50 mls/hr Dextrose/Sodium Chloride (D5-1/2ns+40 Meq Kcl -) 1,000 mls @ 60 mls/hr IV ASDIR [facility] Last Admin: 10/03/16 22:14 Dose: 60 mls/hr Insulin Aspart (Novolog Vial Sliding Scale -) 1 vial SQ ACHS [facility] PRN Reason: Protocol Last Admin: 10/04/16 06:24 Dose: 3 units Insulin Detemir (Levemir Vial) 10 units SQ BIDAC [facility] Last Admin: 10/04/16 06:24 Dose: 10 units Metoprolol Succinate (Toprol Xl -) 50 mg PO DAILY [facility] Last Admin: 10/04/16 09:28 Dose: 50 mg Metronidazole (Flagyl -) 500 mg PO TID [facility] Last Admin: 10/04/16 05:33 Dose: 500 mg Multivitamins/Minerals (Theragran-M) 1 each PO DAILY [facility] Last Admin: 10/04/16 09:28 Dose: 1 each Nystatin (Mycostatin Ointment -) 1 applic TP BID [facility] Last Admin: 10/04/16 09:30 Dose: 1 applic Ondansetron HCl (Zofran Injection) 4 mg IVPB Q6H PRN PRN Reason: NAUSEA Pantoprazole Sodium (Protonix -) 40 mg PO BID [facility] Last Admin: 10/04/16 09:28 Dose: 40 mg Polyethylene Glycol (Miralax (For Daily Use) -) 17 gm PO QID [facility] Prednisolone Acetate (Pred Mild 0.12% -) 1 drop OS DAILY [facility] Last Admin: 10/04/16 09:30 Dose: 1 dose Senna/Docusate Sodium (Pericolace -) 1 tablet PO BID [facility] Ticagrelor (Brilinta -) 90 mg PO BID [facility] Last Admin: 10/04/16 09:29 Dose: 90 mg Valacyclovir HCl (Valtrex -) 1,000 mg PO DAILY [facility] Last Admin: 10/04/16 09:30 Dose: 1,000 mg - Objective Vital Signs: Vital Signs Temperature 98.2 F 10/04/16 09:00 Pulse Rate 68 10/04/16 09:00 Respiratory Rate 20 10/04/16 09:00 Blood Pressure 125/60 10/04/16 09:00 O2 Sat by Pulse Oximetry (%) 96 10/04/16 09:00 Constitutional: Yes: No Distress Cardiovascular: Yes: Regular Rate and Rhythm Respiratory: Yes: Diminished Gastrointestinal: Yes: Normal Bowel Sounds, Soft, Distention. No: Tenderness Edema: No Labs: CBC, BMP 10/04/16 06:50 10/04/16 06:50 INR, PTT INR 0.98 (0.82-1.09) 09/29/16 03:30 Problem List - Problems (1) Colitis Code(s): K52.9 - NONINFECTIVE GASTROENTERITIS AND COLITIS, UNSPECIFIED (2) Diarrhea Code(s): R19.7 - DIARRHEA, UNSPECIFIED Qualifiers: Diarrhea type: presumed infectious Qualified Code(s): A09 - Infectious gastroenteritis and colitis, unspecified (3) Diverticula of colon Code(s): K57.30 - DVRTCLOS OF LG INT W/O PERFORATION OR ABSCESS W/O BLEEDING (4) CAD (coronary artery disease) Code(s): I25.10 - ATHSCL HEART DISEASE OF [place] CORONARY ARTERY W/O ANG PCTRS Qualifiers: Coronary Disease-Associated Artery/Lesion type: [place] artery (5) CHF (congestive heart failure) Code(s): I50.9 - HEART FAILURE, UNSPECIFIED (6) Ileus Code(s): K56.7 - ILEUS, UNSPECIFIED Assessment/Plan PLAN --CT abd noted -- stool softeners -- continue with antibiotics -- received steroid injections on left knee -- Surgery eval -- DVT prophylaxis-- on Brilinta -- GI follow up
[2016-10-04] MEDS: SENNOSIDES/DOCUSATE COMBO (SENNA PLUS) TABLET (UD) PO SCH ×2 (13:09→21:23)
--- NOTE | 2016-10-04 16:03 | CONSULT ---
Consult Consult Specialty:: Surgery Referred by:: Nitesh Sarmiento M.D. - History of Present Illness Chief Complaint: C/O Upper abdominal pain, no nausea, no vomiting. has been constipated. 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 Left drooping eyelid surgery 2016. 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 History of Recent Travel: No Home Medications - Allergies Allergies/Adverse Reactions: Allergies Allergy/AdvReac Type Severity Reaction Status Date / Time No Known Drug Allergies Allergy Verified 09/29/16 03:00 TOMATO SAUCE ONLY Allergy Uncoded 09/29/16 17:19 - Home Medications Home Medications: Ambulatory Orders Aspirin [ASA -] 81 mg PO DAILY 09/10/14 Gabapentin [Neurontin] 100 mg PO Q8H 09/10/14 Amlodipine Besylate 10 mg PO DAILY 04/23/16 Linagliptin [Tradjenta] 5 mg PO ACBK 04/23/16 Metoprolol Succinate [Toprol Xl] 50 mg PO DAILY 04/23/16 Pantoprazole Sodium [Protonix] 40 mg PO BID 04/23/16 Ticagrelor [Brilinta] 90 mg PO BID 04/23/16 Valacyclovir HCl [Valtrex -] 1,000 mg PO DAILY 04/23/16 Furosemide [Lasix -] 80 mg PO BID #60 tablet 07/31/16 Potassium Chloride 20 meq PO DAILY #30 tablet.er 07/31/16 Acetaminophen [Mapap] 500 mg PO TID 09/29/16 Ascorbic Acid [Vitamin C -] 500 mg PO DAILY 09/29/16 Clotrimazole [Lotrimin 1% Cream -] 1 applic TP DAILY 09/29/16 Insulin Glargine,Hum.rec.anlog [Lantus Solostar PEN -] 35 units SQ ACDIN Loteprednol Etab 0.5% Oph Susp [Lotemax (Nf)] 1 drop OS DAILY 09/29/16 Multivitamins [Tab-A-Vit -] 1 tab PO DAILY 09/29/16 Mupirocin Cream [Bactroban 2% Cream -] 1 applic TP DAILY 09/29/16 Nystatin Powder [Nystop Topical Powder -] 60 gm TP DAILY 09/29/16 Polyethylene Glycol 3350 [Purelax] 17 gm PO BID PRN 09/29/16 Sitagliptin Phosphate [Januvia] 100 mg PO ACBK 09/29/16 Family Disease History - Family Disease History Family Disease History: Diabetes: Sister ( of CLOUD rt cirrhosis ), Heart Disease: Father ( at age 33 [address]), Brother ( after CABG), CA: Mother ( of Ovarian cancer at age 57), Other: Sister Physical Exam Vital Signs: Vital Signs Temperature 98.3 F 10/04/16 14:50 Pulse Rate 68 10/04/16 14:50 Respiratory Rate 18 10/04/16 14:50 Blood Pressure 121/58 10/04/16 14:50 O2 Sat by Pulse Oximetry (%) 96 10/04/16 09:00 Gastrointestinal: Yes: Distention (Abdomen is obese/distended. No palpable mass , no guarding.) Labs: CBC, BMP 10/04/16 06:50 10/04/16 06:50 Imaging - Results Cat Scan: Report Reviewed, Image Reviewed Problem List - Problems (1) Abdominal pain Code(s): R10.9 - UNSPECIFIED ABDOMINAL PAIN Qualified Code(s): - (2) CHF (congestive heart failure) Code(s): I50.9 - HEART FAILURE, UNSPECIFIED (3) Diabetes Code(s): E11.9 - TYPE 2 DIABETES MELLITUS WITHOUT COMPLICATIONS Qualifiers: Diabetes mellitus type: type 2 Diabetes mellitus complication status: with hypoglycemia Diabetes mellitus complication detail: without coma Diabetes mellitus intermediate teacher insulin use: unspecified intermediate teacher insulin use status Qualified Code(s): E11.649 - Type 2 diabetes mellitus with hypoglycemia without coma; Z79.4 - manager terminal (current) use of insulin Assessment/Plan Abdominal pain, Obesity, Congestive heart failure. Ct scan shows no colitis, no obstruction. Etiology of pain unclear, ? gastritis. No abdominal hernia. ? resolving colitis.
--- NOTE | 2016-10-04 16:05 | PN ---
GI Progress Note Subjective: Still with some abdominal discomfort Some loose BMs CT scan appears improved without evidence of obstruction C. Diff not collected as of yet - Objective Vital Signs: Vital Signs Temperature 98.3 F 10/04/16 14:50 Pulse Rate 68 10/04/16 14:50 Respiratory Rate 18 10/04/16 14:50 Blood Pressure 121/58 10/04/16 14:50 O2 Sat by Pulse Oximetry (%) 96 10/04/16 09:00 Constitutional: Calm Eyes: No: Sclera Icterus Cardiovascular: Yes: Regular Rate and Rhythm Gastrointestinal Inspection: Yes: Other (protuberant abdomen) ...Auscultate: Yes: Hyperactive Bowel Sounds ...Palpate: Yes: Tenderness (mild TTP mid abdomen) ...Percussion: No: Tympanitic Labs: CBC, BMP 10/04/16 06:50 10/04/16 06:50 INR, PTT INR 0.98 (0.82-1.09) 09/29/16 03:30 Problem List - Problems (1) Colitis Assessment/Plan: Seems improved on CT scan with retained solid stool in more proximal colon Adjusted MiraLAX to 17g BID Awaiting stool for c. diff Code(s): K52.9 - NONINFECTIVE GASTROENTERITIS AND COLITIS, UNSPECIFIED
[2016-10-04] MEDS: D5-1/2NS+40 MEQ KCL - 1,000 ML IV SCH (20:13)
[2016-10-05] MEDS: INSULIN DETEMIR 100 UNITS/ML MDV SQ SCH ×2 (06:35→17:01)
[2016-10-05] MEDS: INSULIN SLIDING SCALE (NOVOLOG) 1 VIAL SQ SCH ×4 (06:39→22:00)
[2016-10-05] MEDS: GABAPENTIN 100 MG CAPSULE (FP) PO SCH ×3 (06:40→22:00)
[2016-10-05] MEDS: metroNIDAZOLE 250 MG TABLET PO SCH ×3 (06:40→21:59)
[2016-10-05] MEDS ORDERED: PT OWN MED DRAWER 7, Y5N ONE ×2 (09:18→09:43)
[2016-10-05] MEDS: TICAGRELOR 90 MG TABLET PO SCH ×2 (09:28→21:52)
[2016-10-05] MEDS: LEVOFLOXACIN 250 MG IVPB 50 ML IVPB SCH (09:29)
[2016-10-05] MEDS: amLODIPine BESYLATE 10 MG TABLET (FP) PO SCH (09:29)
[2016-10-05] MEDS: POLYETHYLENE GLYCOL 3350 119 GM BTL PO SCH ×2 (09:29→21:59)
[2016-10-05] MEDS: NYSTATIN 100000 UNIT/GM TOPICAL OINTMENT 15 GM TUBE TP SCH ×2 (09:29→22:00)
[2016-10-05] MEDS: CLOTRIMAZOLE 1% CREAM 15 GM TUBE TP SCH (09:29)
[2016-10-05] MEDS: PANTOPRAZOLE 40 MG TABLET (FP) PO SCH ×2 (09:30→21:52)
[2016-10-05] MEDS: prednisoLONE ACETATE 0.12% OPTH SUSP- 5 ML BOTTLE OS SCH (09:30)
[2016-10-05] MEDS: SENNOSIDES/DOCUSATE COMBO (SENNA PLUS) TABLET (UD) PO SCH ×2 (09:30→22:00)
[2016-10-05] MEDS: MULTIVITAMINS THER W-MINERALS COMBO TABLET (FP) PO SCH (09:31)
[2016-10-05] MEDS: METOPROLOL SUCCINATE 50 MG TAB.SR.24H (FP) PO SCH (09:31)
[2016-10-05] MEDS: valACYclovir HCL 500 MG TABLET (FP) PO SCH (09:31)
--- NOTE | 2016-10-05 15:28 | PN ---
Progress Note, Physician - Current Medication List Current Medications: Active Medications Al Hydroxide/Mg Hydroxide (Mylanta Oral Suspension -) 30 ml PO Q6H PRN PRN Reason: DYSPEPSIA Last Admin: 10/05/16 02:31 Dose: 30 ml Amlodipine Besylate (Norvasc -) 10 mg PO DAILY [facility] Last Admin: 10/05/16 09:29 Dose: 10 mg Clotrimazole (Lotrimin 1% Cream -) 1 applic TP DAILY [facility] Last Admin: 10/05/16 09:29 Dose: 1 applic Gabapentin (Neurontin -) 100 mg PO TID [facility] Last Admin: 10/05/16 13:44 Dose: 100 mg Levofloxacin (Levaquin 250 Mg Premixed Ivpb -) 50 mls @ 50 mls/hr IVPB DAILY [facility] Last Admin: 10/05/16 09:29 Dose: 50 mls/hr Dextrose/Sodium Chloride (D5-1/2ns+40 Meq Kcl -) 1,000 mls @ 60 mls/hr IV ASDIR [facility] Last Admin: 10/04/16 20:13 Dose: Not Given Insulin Aspart (Novolog Vial Sliding Scale -) 1 vial SQ ACHS [facility] PRN Reason: Protocol Last Admin: 10/05/16 11:49 Dose: 3 units Insulin Detemir (Levemir Vial) 10 units SQ BIDAC [facility] Last Admin: 10/05/16 06:35 Dose: 10 units Metoprolol Succinate (Toprol Xl -) 50 mg PO DAILY [facility] Last Admin: 10/05/16 09:31 Dose: 50 mg Metronidazole (Flagyl -) 500 mg PO TID [facility] Last Admin: 10/05/16 13:44 Dose: 500 mg Multivitamins/Minerals (Theragran-M) 1 each PO DAILY [facility] Last Admin: 10/05/16 09:31 Dose: 1 each Nystatin (Mycostatin Ointment -) 1 applic TP BID [facility] Last Admin: 10/05/16 09:29 Dose: 1 applic Ondansetron HCl (Zofran Injection) 4 mg IVPB Q6H PRN PRN Reason: NAUSEA Pantoprazole Sodium (Protonix -) 40 mg PO BID [facility] Last Admin: 10/05/16 09:30 Dose: 40 mg Polyethylene Glycol (Miralax (For Daily Use) -) 17 gm PO BID [facility] Last Admin: 10/05/16 09:29 Dose: 17 gm Prednisolone Acetate (Pred Mild 0.12% -) 1 drop OS DAILY [facility] Last Admin: 10/05/16 09:30 Dose: 1 dose Senna/Docusate Sodium (Pericolace -) 1 tablet PO BID [facility] Last Admin: 10/05/16 09:30 Dose: 1 tablet Ticagrelor (Brilinta -) 90 mg PO BID [facility] Last Admin: 10/05/16 09:28 Dose: 90 mg Valacyclovir HCl (Valtrex -) 1,000 mg PO DAILY [facility] Last Admin: 10/05/16 09:31 Dose: 1,000 mg - Objective Vital Signs: Vital Signs Temperature 98.6 F 10/05/16 14:42 Pulse Rate 84 10/05/16 14:42 Respiratory Rate 18 10/05/16 14:42 Blood Pressure 121/64 10/05/16 14:42 O2 Sat by Pulse Oximetry (%) 97 10/05/16 09:00 Labs: CBC, BMP 10/04/16 06:50 10/04/16 06:50 INR, PTT INR 0.98 (0.82-1.09) 09/29/16 03:30 Problem List - Problems (1) Abdominal pain Code(s): R10.9 - UNSPECIFIED ABDOMINAL PAIN (2) CHF (congestive heart failure) Code(s): I50.9 - HEART FAILURE, UNSPECIFIED (3) Diabetes Code(s): E11.9 - TYPE 2 DIABETES MELLITUS WITHOUT COMPLICATIONS Qualifiers: Diabetes mellitus type: type 2 Diabetes mellitus complication status: with hypoglycemia Diabetes mellitus complication detail: without coma Diabetes mellitus detention insulin use: unspecified terminal clerk insulin use status Qualified Code(s): E11.649 - Type 2 diabetes mellitus with hypoglycemia without coma; Z79.4 - group home (current) use of insulin Assessment/Plan Patient has had 2 large bowel movement, as per nurses note. Abnormal LFT, elevated alkaline phosphatase, low albumin.
[2016-10-05] MEDS ORDERED: INSULIN (NOVOLOG) ASPART 100 UNITS/ML 10ML VIAL ONE (17:10)
[2016-10-05] MEDS ORDERED: INSULIN DETEMIR 100 UNITS/ML MDV SQ ONE (17:11)
--- NOTE | 2016-10-05 17:24 | PN ---
Progress Note, Physician Chief Complaint: had 4 bm so far no abd pain today feels hungry - Current Medication List Current Medications: Active Medications Al Hydroxide/Mg Hydroxide (Mylanta Oral Suspension -) 30 ml PO Q6H PRN PRN Reason: DYSPEPSIA Last Admin: 10/05/16 02:31 Dose: 30 ml Amlodipine Besylate (Norvasc -) 10 mg PO DAILY [facility] Last Admin: 10/05/16 09:29 Dose: 10 mg Clotrimazole (Lotrimin 1% Cream -) 1 applic TP DAILY [facility] Last Admin: 10/05/16 09:29 Dose: 1 applic Gabapentin (Neurontin -) 100 mg PO TID [facility] Last Admin: 10/05/16 13:44 Dose: 100 mg Levofloxacin (Levaquin 250 Mg Premixed Ivpb -) 50 mls @ 50 mls/hr IVPB DAILY [facility] Last Admin: 10/05/16 09:29 Dose: 50 mls/hr Insulin Aspart (Novolog Vial Sliding Scale -) 1 vial SQ ACHS [facility] PRN Reason: Protocol Last Admin: 10/05/16 17:02 Dose: 3 units Insulin Detemir (Levemir Vial) 10 units SQ BIDAC [facility] Last Admin: 10/05/16 17:01 Dose: 10 units Metoprolol Succinate (Toprol Xl -) 50 mg PO DAILY [facility] Last Admin: 10/05/16 09:31 Dose: 50 mg Metronidazole (Flagyl -) 500 mg PO TID [facility] Last Admin: 10/05/16 13:44 Dose: 500 mg Multivitamins/Minerals (Theragran-M) 1 each PO DAILY [facility] Last Admin: 10/05/16 09:31 Dose: 1 each Nystatin (Mycostatin Ointment -) 1 applic TP BID [facility] Last Admin: 10/05/16 09:29 Dose: 1 applic Ondansetron HCl (Zofran Injection) 4 mg IVPB Q6H PRN PRN Reason: NAUSEA Pantoprazole Sodium (Protonix -) 40 mg PO BID [facility] Last Admin: 10/05/16 09:30 Dose: 40 mg Polyethylene Glycol (Miralax (For Daily Use) -) 17 gm PO BID [facility] Last Admin: 10/05/16 09:29 Dose: 17 gm Prednisolone Acetate (Pred Mild 0.12% -) 1 drop OS DAILY [facility] Last Admin: 10/05/16 09:30 Dose: 1 dose Senna/Docusate Sodium (Pericolace -) 1 tablet PO BID [facility] Last Admin: 10/05/16 09:30 Dose: 1 tablet Ticagrelor (Brilinta -) 90 mg PO BID [facility] Last Admin: 10/05/16 09:28 Dose: 90 mg Valacyclovir HCl (Valtrex -) 1,000 mg PO DAILY [facility] Last Admin: 10/05/16 09:31 Dose: 1,000 mg - Objective Vital Signs: Vital Signs Temperature 98.3 F 10/05/16 16:15 Pulse Rate 70 10/05/16 16:15 Respiratory Rate 18 10/05/16 16:15 Blood Pressure 110/56 10/05/16 16:15 O2 Sat by Pulse Oximetry (%) 97 10/05/16 09:00 Constitutional: Yes: No Distress Cardiovascular: Yes: Regular Rate and Rhythm Respiratory: Yes: CTA Bilaterally Gastrointestinal: Yes: Normal Bowel Sounds, Soft, Distention (less). No: Tenderness Edema: No Labs: CBC, BMP 10/04/16 06:50 10/04/16 06:50 INR, PTT INR 0.98 (0.82-1.09) 09/29/16 03:30 Problem List - Problems (1) Colitis Code(s): K52.9 - NONINFECTIVE GASTROENTERITIS AND COLITIS, UNSPECIFIED (2) Diarrhea Code(s): R19.7 - DIARRHEA, UNSPECIFIED Qualifiers: Diarrhea type: presumed infectious Qualified Code(s): A09 - Infectious gastroenteritis and colitis, unspecified (3) Diverticula of colon Code(s): K57.30 - DVRTCLOS OF LG INT W/O PERFORATION OR ABSCESS W/O BLEEDING (4) CAD (coronary artery disease) Code(s): I25.10 - ATHSCL HEART DISEASE OF [place] CORONARY ARTERY W/O ANG PCTRS Qualifiers: Coronary Disease-Associated Artery/Lesion type: [place] artery (5) CHF (congestive heart failure) Code(s): I50.9 - HEART FAILURE, UNSPECIFIED (6) Ileus Code(s): K56.7 - ILEUS, UNSPECIFIED Assessment/Plan PLAN --advance diet -- continue stool softeners -- continue with antibiotics -- received steroid injections on left knee -- Surgery eval noted -- DVT prophylaxis-- on Brilinta OOB
[2016-10-06] MEDS: metroNIDAZOLE 250 MG TABLET PO SCH ×3 (06:28→21:19)
[2016-10-06] MEDS: GABAPENTIN 100 MG CAPSULE (FP) PO SCH ×3 (06:29→21:20)
[2016-10-06] MEDS: INSULIN DETEMIR 100 UNITS/ML MDV SQ SCH ×2 (06:30→17:01)
[2016-10-06] MEDS: INSULIN SLIDING SCALE (NOVOLOG) 1 VIAL SQ SCH ×4 (06:30→21:20)
--- NOTE | 2016-10-06 08:42 | PN ---
Progress Note (short form) - Note Progress Note: Ortho Pt seen and examined feeling better s/p cortisone inj into left knee decr pain, incr rom nvi a/p Orthopedically stable NTD d/w Dr. Sweet
--- NOTE | 2016-10-06 09:41 | PN ---
Progress Note (short form) - Note Progress Note: Subjective Patient seen and examined. Chart reviewed. Still having abdominal discomfort. Having bowel movements Also started on solid diet today. Afebrile Objective Last Vital Signs Temp Pulse Resp BP Pulse Ox 97.7 F 60 20 124/62 97 10/06/16 06:35 10/06/16 06:35 10/06/16 06:35 10/06/16 06:35 10/05/16 21:00 Labs: CBC, BMP 10/04/16 06:50 10/04/16 06:50 Problem List - Problems (1) Colitis Code(s): K52.9 - NONINFECTIVE GASTROENTERITIS AND COLITIS, UNSPECIFIED (2) Diarrhea Code(s): R19.7 - DIARRHEA, UNSPECIFIED Qualifiers: Diarrhea type: presumed infectious Qualified Code(s): A09 - Infectious gastroenteritis and colitis, unspecified (3) Diverticula of colon Code(s): K57.30 - DVRTCLOS OF LG INT W/O PERFORATION OR ABSCESS W/O BLEEDING (4) CAD (coronary artery disease) Code(s): I25.10 - ATHSCL HEART DISEASE OF [place] CORONARY ARTERY W/O ANG PCTRS Qualifiers: Coronary Disease-Associated Artery/Lesion type: [place] artery (5) CHF (congestive heart failure) Code(s): I50.9 - HEART FAILURE, UNSPECIFIED (6) Ileus Code(s): K56.7 - ILEUS, UNSPECIFIED Physical Exam Constitutional: Yes: No Distress Cardiovascular: Yes: Regular Rate and Rhythm Respiratory: Yes: CTA Bilaterally Gastrointestinal: Yes: Normal Bowel Sounds, Soft, Distention (less). No: Tenderness Edema: No Assessment and Plan overall better. continue present care C.diff negavite PT Follow up labs GI to follow If better will consider discharge senior living tomorrow
[2016-10-06] MEDS ORDERED: PT OWN MED DRAWER 7, Y5N ONE (09:56)
[2016-10-06] MEDS: TICAGRELOR 90 MG TABLET PO SCH ×2 (10:00→21:14)
[2016-10-06] MEDS: LEVOFLOXACIN 250 MG IVPB 50 ML IVPB SCH (10:00)
[2016-10-06] MEDS: CLOTRIMAZOLE 1% CREAM 15 GM TUBE TP SCH (10:01)
--- NOTE | 2016-10-06 10:01 | PN ---
Progress Note, Physician - Current Medication List Current Medications: Active Medications Al Hydroxide/Mg Hydroxide (Mylanta Oral Suspension -) 30 ml PO Q6H PRN PRN Reason: DYSPEPSIA Last Admin: 10/05/16 02:31 Dose: 30 ml Amlodipine Besylate (Norvasc -) 10 mg PO DAILY [facility] Last Admin: 10/05/16 09:29 Dose: 10 mg Clotrimazole (Lotrimin 1% Cream -) 1 applic TP DAILY [facility] Last Admin: 10/05/16 09:29 Dose: 1 applic Gabapentin (Neurontin -) 100 mg PO TID [facility] Last Admin: 10/06/16 06:29 Dose: 100 mg Levofloxacin (Levaquin 250 Mg Premixed Ivpb -) 50 mls @ 50 mls/hr IVPB DAILY [facility] Last Admin: 10/05/16 09:29 Dose: 50 mls/hr Insulin Aspart (Novolog Vial Sliding Scale -) 1 vial SQ ACHS [facility] PRN Reason: Protocol Last Admin: 10/06/16 06:30 Dose: Not Given Insulin Detemir (Levemir Vial) 10 units SQ BIDAC [facility] Last Admin: 10/06/16 06:30 Dose: 10 units Metoprolol Succinate (Toprol Xl -) 50 mg PO DAILY [facility] Last Admin: 10/05/16 09:31 Dose: 50 mg Metronidazole (Flagyl -) 500 mg PO TID [facility] Last Admin: 10/06/16 06:28 Dose: 500 mg Multivitamins/Minerals (Theragran-M) 1 each PO DAILY [facility] Last Admin: 10/05/16 09:31 Dose: 1 each Nystatin (Mycostatin Ointment -) 1 applic TP BID [facility] Last Admin: 10/05/16 22:00 Dose: 1 applic Ondansetron HCl (Zofran Injection) 4 mg IVPB Q6H PRN PRN Reason: NAUSEA Pantoprazole Sodium (Protonix -) 40 mg PO BID [facility] Last Admin: 10/05/16 21:52 Dose: 40 mg Polyethylene Glycol (Miralax (For Daily Use) -) 17 gm PO BID [facility] Last Admin: 10/05/16 21:59 Dose: 17 gm Prednisolone Acetate (Pred Mild 0.12% -) 1 drop OS DAILY [facility] Last Admin: 10/05/16 09:30 Dose: 1 dose Senna/Docusate Sodium (Pericolace -) 1 tablet PO BID [facility] Last Admin: 10/05/16 22:00 Dose: 1 tablet Ticagrelor (Brilinta -) 90 mg PO BID [facility] Last Admin: 10/05/16 21:52 Dose: 90 mg Valacyclovir HCl (Valtrex -) 1,000 mg PO DAILY [facility] Last Admin: 10/05/16 09:31 Dose: 1,000 mg - Objective Vital Signs: Vital Signs Temperature 97.7 F 10/06/16 06:35 Pulse Rate 60 10/06/16 06:35 Respiratory Rate 20 10/06/16 06:35 Blood Pressure 124/62 10/06/16 06:35 O2 Sat by Pulse Oximetry (%) 97 10/05/16 21:00 Labs: CBC, BMP 10/04/16 06:50 10/04/16 06:50 INR, PTT INR 0.98 (0.82-1.09) 09/29/16 03:30 Problem List - Problems (1) Abdominal pain Code(s): R10.9 - UNSPECIFIED ABDOMINAL PAIN (2) CHF (congestive heart failure) Code(s): I50.9 - HEART FAILURE, UNSPECIFIED (3) Diabetes Code(s): E11.9 - TYPE 2 DIABETES MELLITUS WITHOUT COMPLICATIONS Qualifiers: Diabetes mellitus type: type 2 Diabetes mellitus complication status: with hypoglycemia Diabetes mellitus complication detail: without coma Diabetes mellitus terminal clerk insulin use: unspecified terminal clerk insulin use status Qualified Code(s): E11.649 - Type 2 diabetes mellitus with hypoglycemia without coma; Z79.4 - keno terminal operator (current) use of insulin Assessment/Plan Surgery: C/O of diffuse abdominal pain when asked, otherwise she is lying comfortably. No vomitimg, has had bowel movement. Abdomen is obese, large, soft . No focal tenderness. No sign of abdominal hernia. No acute abdominal process identified.
[2016-10-06] MEDS: POLYETHYLENE GLYCOL 3350 119 GM BTL PO SCH ×2 (10:05→21:19)
[2016-10-06] MEDS: NYSTATIN 100000 UNIT/GM TOPICAL OINTMENT 15 GM TUBE TP SCH ×2 (10:05→21:20)
[2016-10-06] MEDS: amLODIPine BESYLATE 10 MG TABLET (FP) PO SCH (10:06)
[2016-10-06] MEDS: SENNOSIDES/DOCUSATE COMBO (SENNA PLUS) TABLET (UD) PO SCH ×2 (10:06→21:20)
[2016-10-06] MEDS: PANTOPRAZOLE 40 MG TABLET (FP) PO SCH ×2 (10:07→21:20)
[2016-10-06] MEDS: prednisoLONE ACETATE 0.12% OPTH SUSP- 5 ML BOTTLE OS SCH (10:07)
[2016-10-06] MEDS: METOPROLOL SUCCINATE 50 MG TAB.SR.24H (FP) PO SCH (10:07)
[2016-10-06] MEDS: valACYclovir HCL 500 MG TABLET (FP) PO SCH (10:07)
[2016-10-06] MEDS: MULTIVITAMINS THER W-MINERALS COMBO TABLET (FP) PO SCH (10:07)
--- NOTE | 2016-10-06 11:54 | PN ---
GI Progress Note Subjective: GI NOte: Belinda is moving her bowels with the help of Miralax but she still feels bloated. Unfortunately she is not mobile.She denies N/V and has eaten a solid breakfast. No pain. C. diff is negative as were stool cultures. - Objective Vital Signs: Vital Signs Temperature 97.8 F 10/06/16 10:00 Pulse Rate 60 10/06/16 10:00 Respiratory Rate 20 10/06/16 10:00 Blood Pressure 141/68 10/06/16 10:00 O2 Sat by Pulse Oximetry (%) 97 10/06/16 09:00 Constitutional: Calm Gastrointestinal Inspection: Yes: Distention ...Auscultate: Yes: Hypoactive Bowel Sounds ...Palpate: Yes: Soft, Other (nontender) Labs: CBC, BMP 10/04/16 06:50 10/04/16 06:50 INR, PTT INR 0.98 (0.82-1.09) 09/29/16 03:30 Assessment/Plan Resolved ischemic or infectious colitis but the colon is not functioning well. I have therefore advised a colonoscopy to exclude an underlying cancer or ischemic stricture. I have informed her of the potential for such complications as perforation and hemorrhage. She has granted an informed consent. I have scheduled her for 10/09 and have ordered a bowel prep in the interim.
[2016-10-06] MEDS ORDERED: INSULIN (NOVOLOG) ASPART 100 UNITS/ML 10ML VIAL ONE ×2 (12:16→12:25)
[2016-10-06] MEDS ORDERED: INSULIN DETEMIR 100 UNITS/ML MDV SQ ONE ×2 (16:56→17:08)
[2016-10-07] MEDS: metroNIDAZOLE 250 MG TABLET PO SCH ×3 (06:05→22:08)
[2016-10-07] MEDS: LEVOFLOXACIN 250 MG TABLET (FP) PO SCH (06:08)
[2016-10-07] MEDS: GABAPENTIN 100 MG CAPSULE (FP) PO SCH ×3 (06:08→22:08)
[2016-10-07] MEDS: INSULIN DETEMIR 100 UNITS/ML MDV SQ SCH ×2 (06:09→17:27)
[2016-10-07] MEDS: INSULIN SLIDING SCALE (NOVOLOG) 1 VIAL SQ SCH ×4 (06:09→22:10)
[2016-10-07 07:13] LABS: BASOPHIL 0.6 % (0-2.0); EOSINOPHIL 2.5 % (0-4.5); MCH 30.9 pg (25.7-33.7); MCHC 33.6 g/dl (32.0-36.0); MEAN CELL VOLUME 91.9 fl (80-96); MEAN PLT VOLUME 8.9 fl (7.5-11.1); NEUTROPHILS 78.5 % (42.8-82.8); PLATELET COUNT 208 K/MM3 (134-434); RDW 16.4 % (11.6-15.6); WHITE BLOOD COUNT 7.7 K/mm3 (4.0-10.0)
[2016-10-07 07:38] LABS: ALBUMIN 3.1 g/dl (3.4-5.0); CALCIUM 8.3 mg/dL (8.5-10.1); CREATININE 1.1 mg/dL (0.55-1.02)
[2016-10-07 07:41] LABS: BILIRUBIN,TOTAL 0.3 mg/dL (0.2-1.0); TOT PROT 5.7 g/dl (6.4-8.2)
[2016-10-07] MEDS: amLODIPine BESYLATE 10 MG TABLET (FP) PO SCH (09:56)
[2016-10-07] MEDS: PANTOPRAZOLE 40 MG TABLET (FP) PO SCH ×2 (09:56→22:08)
[2016-10-07] MEDS: SENNOSIDES/DOCUSATE COMBO (SENNA PLUS) TABLET (UD) PO SCH ×2 (09:56→22:07)
[2016-10-07] MEDS: METOPROLOL SUCCINATE 50 MG TAB.SR.24H (FP) PO SCH (09:56)
[2016-10-07] MEDS: valACYclovir HCL 500 MG TABLET (FP) PO SCH (09:56)
[2016-10-07] MEDS: TICAGRELOR 90 MG TABLET PO SCH ×2 (09:57→22:10)
[2016-10-07] MEDS: prednisoLONE ACETATE 0.12% OPTH SUSP- 5 ML BOTTLE OS SCH (09:58)
[2016-10-07] MEDS: NYSTATIN 100000 UNIT/GM TOPICAL OINTMENT 15 GM TUBE TP SCH ×2 (09:59→22:10)
[2016-10-07] MEDS: CLOTRIMAZOLE 1% CREAM 15 GM TUBE TP SCH (09:59)
[2016-10-07] MEDS: PEG3350/SOD SULF,BICARB,CL/KCL 4,000 ML SOLN.RECON PO ONE ×2 (10:01→11:21)
[2016-10-07] MEDS: MULTIVITAMINS THER W-MINERALS COMBO TABLET (FP) PO SCH (10:01)
--- NOTE | 2016-10-07 11:00 | PN ---
Progress Note (short form) - Note Progress Note: pt comfortable but complains of abd pain. having bowel movement scheduled for colonoscopy on sunday afebrile Vital Signs Temp 98.4 F 10/07/16 09:00 Pulse 61 10/07/16 09:00 Resp 16 10/07/16 09:00 BP 120/59 10/07/16 09:00 Pulse Ox 96 10/07/16 09:00 Intake & Output 10/06/16 10/06/16 10/07/16 11:59 23:59 11:59 Intake Total 400 50 580 Balance 400 50 580 Intake: IVPB 50 Oral 400 350 Oral Supplement 230 Other: Voiding Method Incontinent Incontinent Incontinent # Unmeasured Voids Void 2 2 Bowel Movement Yes Yes Yes # Bowel Movements 2 1 Active Medications Al Hydroxide/Mg Hydroxide (Mylanta Oral Suspension -) 30 ml PO Q6H PRN PRN Reason: DYSPEPSIA Last Admin: 10/05/16 02:31 Dose: 30 ml Amlodipine Besylate (Norvasc -) 10 mg PO DAILY [facility] Last Admin: 10/07/16 09:56 Dose: 10 mg Bisacodyl (Dulcolax -) 20 mg PO ONCE ONE Stop: 10/07/16 18:01 Bisacodyl (Dulcolax -) 20 mg PO ONCE ONE Stop: 10/08/16 18:01 Clotrimazole (Lotrimin 1% Cream -) 1 applic TP DAILY [facility] Last Admin: 10/07/16 09:59 Dose: 1 applic Gabapentin (Neurontin -) 100 mg PO TID [facility] Last Admin: 10/07/16 06:08 Dose: 100 mg Insulin Aspart (Novolog Vial Sliding Scale -) 1 vial SQ ACHS [facility] PRN Reason: Protocol Last Admin: 10/07/16 06:09 Dose: 3 units Insulin Detemir (Levemir Vial) 10 units SQ BIDAC [facility] Last Admin: 10/07/16 06:09 Dose: 10 units Levofloxacin (Levaquin -) 250 mg PO DAILY@0600 [facility] Last Admin: 10/07/16 06:08 Dose: 250 mg Metoprolol Succinate (Toprol Xl -) 50 mg PO DAILY [facility] Last Admin: 10/07/16 09:56 Dose: 50 mg Metronidazole (Flagyl -) 500 mg PO TID [facility] Last Admin: 10/07/16 06:05 Dose: 500 mg Multivitamins/Minerals (Theragran-M) 1 each PO DAILY [facility] Last Admin: 10/07/16 10:01 Dose: 1 each Nystatin (Mycostatin Ointment -) 1 applic TP BID [facility] Last Admin: 10/07/16 09:59 Dose: 1 applic Ondansetron HCl (Zofran Injection) 4 mg IVPB Q6H PRN PRN Reason: NAUSEA Pantoprazole Sodium (Protonix -) 40 mg PO BID [facility] Last Admin: 10/07/16 09:56 Dose: 40 mg Polyethylene Glycol/Electrolytes (Golytely Solution) 2,000 ml PO ONCE ONE Stop: 10/08/16 08:01 Prednisolone Acetate (Pred Mild 0.12% -) 1 drop OS DAILY [facility] Last Admin: 10/07/16 09:58 Dose: 1 dose Senna/Docusate Sodium (Pericolace -) 1 tablet PO BID [facility] Last Admin: 10/07/16 09:56 Dose: 1 tablet Ticagrelor (Brilinta -) 90 mg PO BID [facility] Last Admin: 10/07/16 09:57 Dose: 90 mg Valacyclovir HCl (Valtrex -) 1,000 mg PO DAILY [facility] Last Admin: 10/07/16 09:56 Dose: 1,000 mg CBC, BMP 10/07/16 06:50 10/07/16 06:50 Problem List - Problems (1) Colitis Code(s): K52.9 - NONINFECTIVE GASTROENTERITIS AND COLITIS, UNSPECIFIED (2) Diarrhea Code(s): R19.7 - DIARRHEA, UNSPECIFIED Qualifiers: Diarrhea type: presumed infectious Qualified Code(s): A09 - Infectious gastroenteritis and colitis, unspecified (3) Diverticula of colon Code(s): K57.30 - DVRTCLOS OF LG INT W/O PERFORATION OR ABSCESS W/O BLEEDING (4) CAD (coronary artery disease) Code(s): I25.10 - ATHSCL HEART DISEASE OF [place] CORONARY ARTERY W/O ANG PCTRS Qualifiers: Coronary Disease-Associated Artery/Lesion type: [place] artery (5) CHF (congestive heart failure) Code(s): I50.9 - HEART FAILURE, UNSPECIFIED (6) Ileus Code(s): K56.7 - ILEUS, UNSPECIFIED Physical Exam Constitutional: Yes: No Distress/ comfortable. Cardiovascular: Yes: Regular Rate and Rhythm Respiratory: Yes: CTA Bilaterally. Gastrointestinal: Yes: Normal Bowel Sounds, Soft, Distention (less). No: Tenderness Edema: No. Assessment and Plan clinically stable. continue present care. colonoscopy on sunday ambulate as much as tolerated
[2016-10-07] MEDS ORDERED: INSULIN (NOVOLOG) ASPART 100 UNITS/ML 10ML VIAL ONE ×2 (12:11→19:50)
[2016-10-07] MEDS ORDERED: INSULIN DETEMIR 100 UNITS/ML MDV SQ ONE (17:53)
[2016-10-07] MEDS ORDERED: BISACODYL 5 MG TABLET.DR (FP) PO ONE ×2 (18:00)
[2016-10-08] MEDS: INSULIN SLIDING SCALE (NOVOLOG) 1 VIAL SQ SCH ×4 (06:17→22:29)
[2016-10-08] MEDS: metroNIDAZOLE 250 MG TABLET PO SCH ×3 (06:19→22:27)
[2016-10-08] MEDS: GABAPENTIN 100 MG CAPSULE (FP) PO SCH ×3 (06:22→22:28)
[2016-10-08] MEDS: LEVOFLOXACIN 250 MG TABLET (FP) PO SCH (06:22)
[2016-10-08] MEDS: INSULIN DETEMIR 100 UNITS/ML MDV SQ SCH ×2 (06:22→17:18)
[2016-10-08 07:39] LABS: EOSINOPHIL 2.2 % (0-4.5); MCH 30.9 pg (25.7-33.7); MCHC 33.4 g/dl (32.0-36.0); MEAN CELL VOLUME 92.4 fl (80-96); MEAN PLT VOLUME 8.6 fl (7.5-11.1); NEUTROPHILS 82.6 % (42.8-82.8); PLATELET COUNT 204 K/MM3 (134-434); RDW 16.2 % (11.6-15.6); WHITE BLOOD COUNT 7.2 K/mm3 (4.0-10.0)
[2016-10-08] MEDS ORDERED: PEG3350/SOD SULF,BICARB,CL/KCL 4,000 ML SOLN.RECON PO ONE (08:00)
[2016-10-08 08:35] LABS: CALCIUM 8.8 mg/dL (8.5-10.1); CREATININE 0.9 mg/dL (0.55-1.02)
[2016-10-08] MEDS: SENNOSIDES/DOCUSATE COMBO (SENNA PLUS) TABLET (UD) PO SCH ×2 (09:20→22:29)
[2016-10-08] MEDS: MULTIVITAMINS THER W-MINERALS COMBO TABLET (FP) PO SCH (09:20)
[2016-10-08] MEDS: METOPROLOL SUCCINATE 50 MG TAB.SR.24H (FP) PO SCH (09:20)
[2016-10-08] MEDS: amLODIPine BESYLATE 10 MG TABLET (FP) PO SCH (09:20)
[2016-10-08] MEDS: PANTOPRAZOLE 40 MG TABLET (FP) PO SCH ×2 (09:20→22:29)
[2016-10-08] MEDS: TICAGRELOR 90 MG TABLET PO SCH ×2 (09:20→22:27)
[2016-10-08] MEDS: CLOTRIMAZOLE 1% CREAM 15 GM TUBE TP SCH (09:21)
[2016-10-08] MEDS: prednisoLONE ACETATE 0.12% OPTH SUSP- 5 ML BOTTLE OS SCH (09:21)
[2016-10-08] MEDS: valACYclovir HCL 500 MG TABLET (FP) PO SCH (09:21)
[2016-10-08] MEDS: NYSTATIN 100000 UNIT/GM TOPICAL OINTMENT 15 GM TUBE TP SCH ×2 (09:21→22:30)
--- NOTE | 2016-10-08 11:25 | PN ---
Progress Note (short form) - Note Progress Note: pt comfortable feels ok decreased pain no distress scheduled for colonoscopy on sunday afebrile Vital Signs Temp 98.7 F 10/08/16 05:56 Pulse 67 10/08/16 05:56 Resp 20 10/08/16 05:56 BP 132/57 10/08/16 05:56 Pulse Ox 96 10/07/16 09:00 Intake & Output 10/07/16 10/07/16 10/08/16 11:59 23:59 11:59 Intake Total 580 1000 300 Balance 580 1000 300 Weight 199 lb 3.2 oz Intake: Oral 350 1000 300 Oral Supplement 230 Other: Voiding Method Incontinent Diaper # Unmeasured Voids Void 2 1 3 Bowel Movement Yes Yes: watery Yes # Bowel Movements 1 2 3 Weight Measurement Method Built in [facility] Active Medications Al Hydroxide/Mg Hydroxide (Mylanta Oral Suspension -) 30 ml PO Q6H PRN PRN Reason: DYSPEPSIA Last Admin: 10/05/16 02:31 Dose: 30 ml Amlodipine Besylate (Norvasc -) 10 mg PO DAILY [facility] Last Admin: 10/07/16 09:56 Dose: 10 mg Bisacodyl (Dulcolax -) 20 mg PO ONCE ONE Stop: 10/07/16 18:01 Bisacodyl (Dulcolax -) 20 mg PO ONCE ONE Stop: 10/08/16 18:01 Clotrimazole (Lotrimin 1% Cream -) 1 applic TP DAILY [facility] Last Admin: 10/07/16 09:59 Dose: 1 applic Gabapentin (Neurontin -) 100 mg PO TID [facility] Last Admin: 10/07/16 06:08 Dose: 100 mg Insulin Aspart (Novolog Vial Sliding Scale -) 1 vial SQ ACHS [facility] PRN Reason: Protocol Last Admin: 10/07/16 06:09 Dose: 3 units Insulin Detemir (Levemir Vial) 10 units SQ BIDAC [facility] Last Admin: 10/07/16 06:09 Dose: 10 units Levofloxacin (Levaquin -) 250 mg PO DAILY@0600 [facility] Last Admin: 10/07/16 06:08 Dose: 250 mg Metoprolol Succinate (Toprol Xl -) 50 mg PO DAILY [facility] Last Admin: 10/07/16 09:56 Dose: 50 mg Metronidazole (Flagyl -) 500 mg PO TID [facility] Last Admin: 02/11/17 06:05 Dose: 500 mg Multivitamins/Minerals (Theragran-M) 1 each PO DAILY [facility] Last Admin: 10/07/16 10:01 Dose: 1 each Nystatin (Mycostatin Ointment -) 1 applic TP BID [facility] Last Admin: 10/07/16 09:59 Dose: 1 applic Ondansetron HCl (Zofran Injection) 4 mg IVPB Q6H PRN PRN Reason: NAUSEA Pantoprazole Sodium (Protonix -) 40 mg PO BID [facility] Last Admin: 10/07/16 09:56 Dose: 40 mg Polyethylene Glycol/Electrolytes (Golytely Solution) 2,000 ml PO ONCE ONE Stop: 10/08/16 08:01 Prednisolone Acetate (Pred Mild 0.12% -) 1 drop OS DAILY [facility] Last Admin: 10/07/16 09:58 Dose: 1 dose Senna/Docusate Sodium (Pericolace -) 1 tablet PO BID [facility] Last Admin: 10/07/16 09:56 Dose: 1 tablet Ticagrelor (Brilinta -) 90 mg PO BID [facility] Last Admin: 10/07/16 09:57 Dose: 90 mg Valacyclovir HCl (Valtrex -) 1,000 mg PO DAILY [facility] Last Admin: 10/07/16 09:56 Dose: 1,000 mg CBC, BMP 10/08/16 06:15 10/08/16 06:15 Problem List - Problems (1) Colitis Code(s): K52.9 - NONINFECTIVE GASTROENTERITIS AND COLITIS, UNSPECIFIED (2) Diarrhea Code(s): R19.7 - DIARRHEA, UNSPECIFIED Qualifiers: Diarrhea type: presumed infectious Qualified Code(s): A09 - Infectious gastroenteritis and colitis, unspecified (3) Diverticula of colon Code(s): K57.30 - DVRTCLOS OF LG INT W/O PERFORATION OR ABSCESS W/O BLEEDING (4) CAD (coronary artery disease) Code(s): I25.10 - ATHSCL HEART DISEASE OF [place] CORONARY ARTERY W/O ANG PCTRS Qualifiers: Coronary Disease-Associated Artery/Lesion type: [place] artery (5) CHF (congestive heart failure) Code(s): I50.9 - HEART FAILURE, UNSPECIFIED (6) Ileus Code(s): K56.7 - ILEUS, UNSPECIFIED Physical Exam Constitutional: Yes: No Distress/ comfortable. Cardiovascular: Yes: Regular Rate and Rhythm Respiratory: Yes: CTA Bilaterally. Gastrointestinal: Yes: Normal Bowel Sounds, Soft, Distention (less). No: Tenderness Edema: No. Assessment and Plan clinically stable. continue present care. colonoscopy tomorrow ambulate as much as tolerated. further recommendations after colonoscopy will follow
[2016-10-08] MEDS ORDERED: INSULIN DETEMIR 100 UNITS/ML MDV SQ ONE (17:57)
[2016-10-08] MEDS ORDERED: BISACODYL 5 MG TABLET.DR (FP) PO ONE (18:00)
[2016-10-08] MEDS ORDERED: PT OWN MED DRAWER 7, Y5N ONE (21:28)
[2016-10-09] MEDS ORDERED: PT OWN MED DRAWER 7, Y5N ONE ×2 (05:33→22:02)
[2016-10-09] MEDS: metroNIDAZOLE 250 MG TABLET PO SCH ×3 (06:30→22:07)
[2016-10-09] MEDS: LEVOFLOXACIN 250 MG TABLET (FP) PO SCH (06:31)
[2016-10-09] MEDS: GABAPENTIN 100 MG CAPSULE (FP) PO SCH ×3 (06:31→22:08)
[2016-10-09] MEDS: INSULIN SLIDING SCALE (NOVOLOG) 1 VIAL SQ SCH ×4 (06:32→22:09)
[2016-10-09] MEDS: INSULIN DETEMIR 100 UNITS/ML MDV SQ SCH ×2 (06:32→17:17)
[2016-10-09 08:15] LABS: CALCIUM 8.5 mg/dL (8.5-10.1)
[2016-10-09 08:17] LABS: CREATININE 0.9 mg/dL (0.55-1.02)
--- NOTE | 2016-10-09 08:22 | PN ---
Progress Note (short form) - Note Progress Note: Subjective Patient seen and examined. Comfortable. No complaints Denies pain. For colonoscopy today. Objective Last Vital Signs Temp Pulse Resp BP Pulse Ox 98.6 F 60 18 130/73 95 10/09/16 08:54 10/09/16 08:54 10/09/16 08:54 10/09/16 08:54 10/08/16 21:00 CBC, BMP 10/08/16 06:15 10/09/16 06:15 Laboratory Results - last 24 hr 10/08/16 10/08/16 10/08/16 12:26 17:17 21:37 Sodium Potassium Chloride Carbon Dioxide Anion Gap BUN Creatinine POC Glucometer 198 136 182 Random Glucose Calcium 10/09/16 10/09/16 06:15 06:16 Sodium 145 Potassium 4.1 Chloride 109 H Carbon Dioxide 25 Anion Gap 11 BUN 7 D Creatinine 0.9 POC Glucometer 97 Random Glucose 104 D Calcium 8.5 Problem List - Problems (1) Colitis Code(s): K52.9 - NONINFECTIVE GASTROENTERITIS AND COLITIS, UNSPECIFIED (2) Diarrhea Code(s): R19.7 - DIARRHEA, UNSPECIFIED Qualifiers: Diarrhea type: presumed infectious Qualified Code(s): A09 - Infectious gastroenteritis and colitis, unspecified (3) Diverticula of colon Code(s): K57.30 - DVRTCLOS OF LG INT W/O PERFORATION OR ABSCESS W/O BLEEDING (4) CAD (coronary artery disease) Code(s): I25.10 - ATHSCL HEART DISEASE OF [place] CORONARY ARTERY W/O ANG PCTRS Qualifiers: Coronary Disease-Associated Artery/Lesion type: [place] artery (5) CHF (congestive heart failure) Code(s): I50.9 - HEART FAILURE, UNSPECIFIED (6) Ileus Code(s): K56.7 - ILEUS, UNSPECIFIED Physical Exam Constitutional: Yes: No Distress/ comfortable. Cardiovascular: Yes: Regular Rate and Rhythm Respiratory: Yes: CTA Bilaterally. Gastrointestinal: Yes: Normal Bowel Sounds, Soft, Distention (less). No: Tenderness Edema: No. Assessment and Plan clinically stable. continue present care. colonoscopy today ambulate as much as tolerated. further recommendations after colonoscopy will follow Documentation prepared by Martha Scott, acting as a medical receptionist assistant for Kathleen Gudino MD.
[2016-10-09] MEDS ORDERED: ETOMIDATE 20 MG/10 ML AMPUL IVPUSH ONE (08:49)
[2016-10-09] MEDS ORDERED: LIDOCAINE HCL/PF 1% SDV 5ML VIAL ONE (08:49)
[2016-10-09] MEDS ORDERED: PROPOFOL 20 ML ONE (08:49)
--- NOTE | 2016-10-09 10:17 | PN ---
Progress Note (short form) - Note Progress Note: GI Procedure Note: Please see scanned colonoscopy report. The patient has ulcerated cobblestoned mucosa in tonie descending and upper sigmoid colon that is most consistent with ischemic colitis. Crohn's Disease is a less likely alternative. Biopsies taken but I suspect that she can be discharged tomorrow as her pain has resolved.
--- NOTE | 2016-10-09 11:08 | PN ---
Progress Note, Physician - Current Medication List Current Medications: Active Medications Al Hydroxide/Mg Hydroxide (Mylanta Oral Suspension -) 30 ml PO Q6H PRN PRN Reason: DYSPEPSIA Last Admin: 10/05/16 02:31 Dose: 30 ml Amlodipine Besylate (Norvasc -) 10 mg PO DAILY [facility] Last Admin: 10/08/16 09:20 Dose: 10 mg Clotrimazole (Lotrimin 1% Cream -) 1 applic TP DAILY [facility] Last Admin: 10/08/16 09:21 Dose: 1 applic Gabapentin (Neurontin -) 100 mg PO TID [facility] Last Admin: 10/09/16 06:31 Dose: 100 mg Insulin Aspart (Novolog Vial Sliding Scale -) 1 vial SQ ACHS [facility] PRN Reason: Protocol Last Admin: 10/09/16 06:32 Dose: Not Given Insulin Detemir (Levemir Vial) 10 units SQ BIDAC [facility] Last Admin: 10/09/16 06:32 Dose: Not Given Levofloxacin (Levaquin -) 250 mg PO DAILY@0600 [facility] Last Admin: 10/09/16 06:31 Dose: 250 mg Metoprolol Succinate (Toprol Xl -) 50 mg PO DAILY [facility] Last Admin: 10/08/16 09:20 Dose: 50 mg Metronidazole (Flagyl -) 500 mg PO TID [facility] Last Admin: 10/09/16 06:30 Dose: 500 mg Multivitamins/Minerals (Theragran-M) 1 each PO DAILY [facility] Last Admin: 10/08/16 09:20 Dose: 1 each Nystatin (Mycostatin Ointment -) 1 applic TP BID [facility] Last Admin: 10/08/16 22:30 Dose: 1 applic Ondansetron HCl (Zofran Injection) 4 mg IVPB Q6H PRN PRN Reason: NAUSEA Pantoprazole Sodium (Protonix -) 40 mg PO BID [facility] Last Admin: 10/08/16 22:29 Dose: 40 mg Prednisolone Acetate (Pred Mild 0.12% -) 1 drop OS DAILY [facility] Last Admin: 10/08/16 09:21 Dose: 1 dose Senna/Docusate Sodium (Pericolace -) 1 tablet PO BID [facility] Last Admin: 10/08/16 22:29 Dose: 1 tablet Ticagrelor (Brilinta -) 90 mg PO BID [facility] Last Admin: 10/08/16 22:27 Dose: 90 mg Valacyclovir HCl (Valtrex -) 1,000 mg PO DAILY [facility] Last Admin: 10/08/16 09:21 Dose: 1,000 mg - Objective Vital Signs: Vital Signs Temperature 97.6 F 10/09/16 10:41 Pulse Rate 61 10/09/16 10:41 Respiratory Rate 20 10/09/16 10:41 Blood Pressure 121/61 10/09/16 10:41 O2 Sat by Pulse Oximetry (%) 96 10/09/16 10:41 Labs: CBC, BMP 10/08/16 06:15 10/09/16 06:15 INR, PTT INR 0.98 (0.82-1.09) 09/29/16 03:30 Problem List - Problems (1) Abdominal pain Code(s): R10.9 - UNSPECIFIED ABDOMINAL PAIN (2) CHF (congestive heart failure) Code(s): I50.9 - HEART FAILURE, UNSPECIFIED (3) Diabetes Code(s): E11.9 - TYPE 2 DIABETES MELLITUS WITHOUT COMPLICATIONS Qualifiers: Diabetes mellitus type: type 2 Diabetes mellitus complication status: with hypoglycemia Diabetes mellitus complication detail: without coma Diabetes mellitus skilled nursing insulin use: unspecified skilled nursing insulin use status Qualified Code(s): E11.649 - Type 2 diabetes mellitus with hypoglycemia without coma; Z79.4 - intermediate card tender (current) use of insulin Assessment/Plan Patient had colonoscopy today. Ulcers, with cobblestone appearance was noted, in the descending and proximal sigmoid colon , suggestive of ?ischemic colitis. Patient is stable. Plan: Discharge planning. No surgical intervention needed at this time. May need a follow up, colonoscopy.
[2016-10-09] MEDS: SENNOSIDES/DOCUSATE COMBO (SENNA PLUS) TABLET (UD) PO SCH ×2 (11:09→22:08)
[2016-10-09] MEDS: METOPROLOL SUCCINATE 50 MG TAB.SR.24H (FP) PO SCH (11:09)
[2016-10-09] MEDS: MULTIVITAMINS THER W-MINERALS COMBO TABLET (FP) PO SCH (11:09)
[2016-10-09] MEDS: amLODIPine BESYLATE 10 MG TABLET (FP) PO SCH (11:09)
[2016-10-09] MEDS: PANTOPRAZOLE 40 MG TABLET (FP) PO SCH ×2 (11:09→22:09)
[2016-10-09] MEDS: CLOTRIMAZOLE 1% CREAM 15 GM TUBE TP SCH (11:16)
[2016-10-09] MEDS: TICAGRELOR 90 MG TABLET PO SCH ×2 (11:16→22:03)
[2016-10-09] MEDS: prednisoLONE ACETATE 0.12% OPTH SUSP- 5 ML BOTTLE OS SCH (11:17)
[2016-10-09] MEDS: NYSTATIN 100000 UNIT/GM TOPICAL OINTMENT 15 GM TUBE TP SCH ×2 (11:17→22:10)
[2016-10-09] MEDS: valACYclovir HCL 500 MG TABLET (FP) PO SCH (11:18)
--- NOTE | 2016-10-09 11:31 | PN ---
Progress Note (short form) - Note Progress Note: Pt seen, states L knee feels a little better after the cortisone injection. She understands that she still has OA. I rec f/u as an out pt for possible gel injections.
[2016-10-10] MEDS: LEVOFLOXACIN 250 MG TABLET (FP) PO SCH (06:27)
[2016-10-10] MEDS: metroNIDAZOLE 250 MG TABLET PO SCH (06:27)
[2016-10-10] MEDS: INSULIN DETEMIR 100 UNITS/ML MDV SQ SCH (06:28)
[2016-10-10] MEDS: GABAPENTIN 100 MG CAPSULE (FP) PO SCH (06:28)
[2016-10-10] MEDS: INSULIN SLIDING SCALE (NOVOLOG) 1 VIAL SQ SCH ×2 (06:28→12:13)
[2016-10-10 07:41] LABS: BASOPHIL 0.4 % (0-2.0); EOSINOPHIL 2.2 % (0-4.5); MCH 30.4 pg (25.7-33.7); MEAN CELL VOLUME 92.3 fl (80-96); MEAN PLT VOLUME 8.5 fl (7.5-11.1); NEUTROPHILS 80.8 % (42.8-82.8); PLATELET COUNT 201 K/MM3 (134-434); RDW 16.1 % (11.6-15.6); WHITE BLOOD COUNT 6.8 K/mm3 (4.0-10.0)
[2016-10-10 08:04] LABS: CALCIUM 8.5 mg/dL (8.5-10.1)
[2016-10-10 08:08] LABS: C-REACTIVE PROTEIN 0.7 MG/DL (0.00-0.3); CREATININE 0.9 mg/dL (0.55-1.02)
[2016-10-10] MEDS ORDERED: PT OWN MED DRAWER 7, Y5N ONE (09:15)
[2016-10-10] MEDS: amLODIPine BESYLATE 10 MG TABLET (FP) PO SCH (09:39)
[2016-10-10] MEDS: TICAGRELOR 90 MG TABLET PO SCH (09:39)
[2016-10-10] MEDS: SENNOSIDES/DOCUSATE COMBO (SENNA PLUS) TABLET (UD) PO SCH (09:39)
[2016-10-10] MEDS: valACYclovir HCL 500 MG TABLET (FP) PO SCH (09:39)
[2016-10-10] MEDS: MULTIVITAMINS THER W-MINERALS COMBO TABLET (FP) PO SCH (09:39)
[2016-10-10] MEDS: PANTOPRAZOLE 40 MG TABLET (FP) PO SCH (09:39)
[2016-10-10] MEDS: CLOTRIMAZOLE 1% CREAM 15 GM TUBE TP SCH (09:40)
[2016-10-10] MEDS: NYSTATIN 100000 UNIT/GM TOPICAL OINTMENT 15 GM TUBE TP SCH (09:40)
[2016-10-10] MEDS: METOPROLOL SUCCINATE 50 MG TAB.SR.24H (FP) PO SCH (09:40)
[2016-10-10] MEDS: prednisoLONE ACETATE 0.12% OPTH SUSP- 5 ML BOTTLE OS SCH (09:40)
[2016-10-10 09:42] VITALS: BP 131/65; PULSE 67; TEMP 98.5
--- NOTE | 2016-10-10 10:39 | PATH ---
Surgical Pathology Report Patient Name: CHARLA MEDINA Med. Rec. #: [id number] /Age/Gender: 1935 (Age: 81) / F Account: [id number] Location: [facility] MED/SURG Taken: 10/09/2016 Received: 10/09/2016 Reported: 10/10/2016 Physicians: Kaiser Man M.D. Specimen(s) Received A: BX DESCENDING COLON B: BX SIGMOID COLON C: BX RECTUM Clinical History Abdominal pain, constipation, rule out colon cancer Suspected ischemic colitis descending colon, sigmoid colon, diverticulosis Final Diagnosis A. COLON, DESCENDING, BIOPSY: COLONIC MUCOSA WITH ISCHEMIC COLITIS WITH ASSOCIATED ULCERATION. NO CARCINOMA IDENTIFIED. B. COLON, SIGMOID, BIOPSY: COLONIC MUCOSA WITH NO PATHOLOGIC CHANGES. NO ACTIVE COLITIS, ARCHITECTURAL DISTORTION, GRANULOMATA, OR DYSPLASIA IDENTIFIED. NO MICROSCOPIC COLITIS IDENTIFIED (NO LYMPHOCYTIC OR COLLAGENOUS COLITIS IDENTIFIED). C. RECTUM, BIOPSY: COLONIC MUCOSA WITH NO PATHOLOGIC CHANGES. NO ACTIVE COLITIS, ARCHITECTURAL DISTORTION, GRANULOMATA, OR DYSPLASIA IDENTIFIED. NO MICROSCOPIC COLITIS IDENTIFIED (NO LYMPHOCYTIC OR COLLAGENOUS COLITIS IDENTIFIED). Electronically Signed Abrahan Judd M.D. Gross Description A. Received in formalin, labeled "biopsy descending colon colitis" are 4 armendariz, irregular portions of soft tissue ranging from 0.2-0.6 cm. in greatest dimension. The specimens are submitted in toto in one cassette. B. Received in formalin, labeled "biopsy sigmoid colon" are 2 armendariz, irregular portions of soft tissue averaging 0.2 cm. in greatest dimension. The specimens are submitted in toto in one cassette. C. Received in formalin, labeled "biopsy rectum" are 2 armendariz, irregular portions of soft tissue measuring 0.2 and 0.5 cm. in greatest dimension. The specimens are submitted in toto in one cassette. 10/09/201610/09/2016
--- NOTE | 2016-10-10 11:34 | DS ---
Physical Examination Vital Signs: Vital Signs Temperature 98.5 F 10/10/16 09:41 Pulse Rate 67 10/10/16 09:41 Respiratory Rate 18 10/10/16 09:41 Blood Pressure 131/65 10/10/16 09:41 O2 Sat by Pulse Oximetry (%) 95 10/10/16 09:00 Constitutional: Yes: No Distress, Calm Cardiovascular: Yes: Regular Rate and Rhythm Respiratory: Yes: Diminished Gastrointestinal: Yes: Normal Bowel Sounds, Soft, Abdomen, Obese. No: Distention, Tenderness Edema: No Labs: CBC, BMP 10/10/16 07:05 10/10/16 07:05 Discharge Summary Reason For Visit: COLITIS Current Active Problems Abdominal pain (Acute) Alkaline phosphatase elevation (Acute) Colitis (Acute) Colon polyp (Acute) Diarrhea (Acute) Diverticula of colon (Acute) High anion gap metabolic acidosis (Acute) Hyperglycemia (Acute) Hyperglycemia due to type 2 diabetes mellitus (Acute) Hypokalemia, gastrointestinal losses (Acute) Nausea & vomiting (Acute) Positive occult stool blood test (Acute) Hospital Course: Admission history - Admission History of Present Illness: The patient is an 81-year-old woman, from [facility], with a significant past medical history of nasal skin cancer, coronary artery disease s /p stent placement, myocardial infarction, congestive heart failure, diabetes mellitus, hypertension and hypercholesterolemia who presented to the emergency department complaining of constant, sharp diffuse abdominal pain, most prominent over the epigastric region for the past 12 hours. Her pain is exacerbated upon palpation or percussion. She also reported associated symptoms of nausea, vomiting (nonbloody/nonbilious), diarrhea, and fecal incontinence. Workup done in the ER. - showed she has colitis. Stool occult blood positive. Elevated WBCs. Patient given fluids and antibiotics and was admitted to the floor. Patient seen and examined. Chart reviewed. Still having abdominal pain. Denies chest pain. Denies any blood in the stools. Nausea present. On further questioning, patient reports she had colonoscopy done many years ago (not in the recent past). HOSPITALIZATION COURSE Pt seen by GI, surgeon and Ortho On IV antibiotics , food modified to soft, bland diet Abd CT -- colitis MRI Abd -- no gall stones, renal cysts , pancreas normal She was seen by Ortho for left knee pain and receeivd steroid injection-- feels better She is up , out of bed BM is regular Cdiff negative tolerating diet Has occasional dull pain in left quadrant No nausea Appetite better but not at her baseline Pt had colonoscopy on 10/09/16-- ischemic colitis-- pathology negative for malignancy Stable for dc to assisted living. She will be on 5 more days of PO antibiotics Condition: Good - Instructions Referrals: Fouzia Luis MD [Primary Care Provider] - Disposition: HOME - Home Medications Comprehensive Discharge Medication List: Ambulatory Orders Aspirin [ASA -] 81 mg PO DAILY 09/10/14 Gabapentin [Neurontin] 100 mg PO Q8H 09/10/14 Amlodipine Besylate 10 mg PO DAILY 04/23/16 Metoprolol Succinate [Toprol Xl] 50 mg PO DAILY 04/23/16 Pantoprazole Sodium [Protonix] 40 mg PO BID 04/23/16 Ticagrelor [Brilinta] 90 mg PO BID 04/23/16 Valacyclovir HCl [Valtrex -] 1,000 mg PO DAILY 04/23/16 Potassium Chloride 20 meq PO DAILY #30 tablet.er 07/31/16 Acetaminophen [Mapap] 500 mg PO TID 09/29/16 Ascorbic Acid [Vitamin C -] 500 mg PO DAILY 09/29/16 Clotrimazole [Lotrimin -] 1 applic TP DAILY 09/29/16 Insulin Glargine,Hum.rec.anlog [Lantus Solostar PEN -] 35 units SQ ACDIN Loteprednol Etab 0.5% Oph Susp [Lotemax (Nf)] 1 drop OS DAILY 09/29/16 Multivitamins [Multivit ([facility] Formulary)] 1 tab PO DAILY 09/29/16 Mupirocin Cream [Bactroban 2% Cream -] 1 applic TP DAILY 09/29/16 Nystatin Powder [Nystop Powder -] 60 gm TP DAILY 09/29/16 Polyethylene Glycol 3350 [Purelax] 17 gm PO BID PRN 09/29/16 Sitagliptin Phosphate [Januvia] 100 mg PO ACBK 09/29/16 Furosemide [Lasix] 40 mg PO DAILY #60 tablet 10/10/16 Levofloxacin [Levaquin -] 250 mg PO DAILY@0600 #5 tablet 10/10/16 Metronidazole [Flagyl -] 500 mg PO TID #15 tablet 10/10/16
--- NOTE | 2016-10-10 12:41 | PN ---
Progress Note, Physician - Current Medication List Current Medications: Active Medications Al Hydroxide/Mg Hydroxide (Mylanta Oral Suspension -) 30 ml PO Q6H PRN PRN Reason: DYSPEPSIA Last Admin: 10/05/16 02:31 Dose: 30 ml Amlodipine Besylate (Norvasc -) 10 mg PO DAILY [facility] Last Admin: 10/10/16 09:39 Dose: 10 mg Clotrimazole (Lotrimin 1% Cream -) 1 applic TP DAILY [facility] Last Admin: 10/10/16 09:40 Dose: 1 applic Gabapentin (Neurontin -) 100 mg PO TID [facility] Last Admin: 10/10/16 06:28 Dose: 100 mg Insulin Aspart (Novolog Vial Sliding Scale -) 1 vial SQ ACHS [facility] PRN Reason: Protocol Last Admin: 10/10/16 12:13 Dose: Not Given Insulin Detemir (Levemir Vial) 10 units SQ BIDAC [facility] Last Admin: 10/10/16 06:28 Dose: Not Given Levofloxacin (Levaquin -) 250 mg PO DAILY@0600 [facility] Last Admin: 10/10/16 06:27 Dose: 250 mg Metoprolol Succinate (Toprol Xl -) 50 mg PO DAILY [facility] Last Admin: 10/10/16 09:40 Dose: 50 mg Metronidazole (Flagyl -) 500 mg PO TID [facility] Last Admin: 10/10/16 06:27 Dose: 500 mg Multivitamins/Minerals (Theragran-M) 1 each PO DAILY [facility] Last Admin: 10/10/16 09:39 Dose: 1 each Nystatin (Mycostatin Ointment -) 1 applic TP BID [facility] Last Admin: 10/10/16 09:40 Dose: 1 applic Ondansetron HCl (Zofran Injection) 4 mg IVPB Q6H PRN PRN Reason: NAUSEA Pantoprazole Sodium (Protonix -) 40 mg PO BID [facility] Last Admin: 10/10/16 09:39 Dose: 40 mg Prednisolone Acetate (Pred Mild 0.12% -) 1 drop OS DAILY [facility] Last Admin: 10/10/16 09:40 Dose: 1 drop Senna/Docusate Sodium (Pericolace -) 1 tablet PO BID [facility] Last Admin: 10/10/16 09:39 Dose: 1 tablet Ticagrelor (Brilinta -) 90 mg PO BID [facility] Last Admin: 10/10/16 09:39 Dose: 90 mg Valacyclovir HCl (Valtrex -) 1,000 mg PO DAILY [facility] Last Admin: 10/10/16 09:39 Dose: 1,000 mg - Objective Vital Signs: Vital Signs Temperature 98.5 F 10/10/16 09:41 Pulse Rate 67 10/10/16 09:41 Respiratory Rate 18 10/10/16 09:41 Blood Pressure 131/65 10/10/16 09:41 O2 Sat by Pulse Oximetry (%) 95 10/10/16 09:00 Labs: CBC, BMP 10/10/16 07:05 10/10/16 07:05 INR, PTT INR 0.98 (0.82-1.09) 09/29/16 03:30 Problem List - Problems (1) Abdominal pain Code(s): R10.9 - UNSPECIFIED ABDOMINAL PAIN (2) CHF (congestive heart failure) Code(s): I50.9 - HEART FAILURE, UNSPECIFIED (3) Diabetes Code(s): E11.9 - TYPE 2 DIABETES MELLITUS WITHOUT COMPLICATIONS Qualifiers: Diabetes mellitus type: type 2 Diabetes mellitus complication status: with hypoglycemia Diabetes mellitus complication detail: without coma Diabetes mellitus assisted insulin use: unspecified assisted insulin use status Qualified Code(s): E11.649 - Type 2 diabetes mellitus with hypoglycemia without coma; 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 Discharge home. No rectal bleeding , no pain.
[2016-10-15 11:52] LABS: C-ANCA <1:20; P-ANCA <1:20
[2016-10-15 11:53] LABS: MYELOPEROXIDASE ANTIBODY <9.0; PROTEINASE-3 ANTIBODY <3.5
== END 2016-10-10 13:21 | disposition home or self-care (01) | DRG 393 ==
LOC: JER 02:49 → JERBED 07:01 → J8W 08:35
PROVIDERS: ADMIT Internal Medicine; ATTEND Internal Medicine
PROC: 3E0U33Z Introduction of Anti-inflammatory into Joints, Percutaneous Approach (ICD-10-PCS; 2016-10-02)
PROC: 0DBN8ZX Excision of Sigmoid Colon, Via Natural or Artificial Opening Endoscopic, Diagnostic (ICD-10-PCS; 2016-10-09)
PROC: 0DBP8ZX Excision of Rectum, Via Natural or Artificial Opening Endoscopic, Diagnostic (ICD-10-PCS; 2016-10-09)
PROC: 0DBM8ZX Excision of Descending Colon, Via Natural or Artificial Opening Endoscopic, Diagnostic (ICD-10-PCS; principal; 2016-10-09 09:00)
DX: K55.9 Vascular disorder of intestine, unspecified (principal); I50.33 Acute on chronic diastolic (congestive) heart failure; E87.2 Acidosis; K56.69 Other intestinal obstruction; I25.10 Atherosclerotic heart disease of native coronary artery without angina pectoris; Z95.5 Presence of coronary angioplasty implant and graft; I25.2 Old myocardial infarction; Z85.828 Personal history of other malignant neoplasm of skin; E78.00 Pure hypercholesterolemia, unspecified; E11.42 Type 2 diabetes mellitus with diabetic polyneuropathy; Z79.4 Long term (current) use of insulin; R11.2 Nausea with vomiting, unspecified; K57.30 Diverticulosis of large intestine without perforation or abscess without bleeding; R74.8 Abnormal levels of other serum enzymes; M25.462 Effusion, left knee; E87.6 Hypokalemia; E88.09 Other disorders of plasma-protein metabolism, not elsewhere classified; M17.9 Osteoarthritis of knee, unspecified; I11.0 Hypertensive heart disease with heart failure; R10.84 Generalized abdominal pain
CPT/HCPCS: 36415; 71010-TC; 73560-TC-LT; 74020-TC; 74176-TC; 74181-TC; 80048; 80053; 81003; 82009; 82150; 82272; 82550; 82947; 82977; 83036; 83520; 83615; 83690; 83735; 83880; 84484; 85025; 85027; 85610; 86140; 86256; 86671; 87040; 87045; 87046; 87086; 87177; 87205; 87207; 87209; 87324; 87328; 87329; 87449; 87798; 88305-TC; 88309-TC; 93005; 93010; 97116-GP; 97161-GP; 99283-25; Q9967

== ENCOUNTER 2017-03-26 06:25 | Inpatient (IN) | payer OTHER, BC ==
[2017-03-26 07:09] LABS: BASOPHIL 0.4 % (0-2.0); EOSINOPHIL 1.6 % (0-4.5); MCH 29.8 pg (25.7-33.7); MCHC 33.9 g/dl (32.0-36.0); MEAN CELL VOLUME 87.9 fl (80-96); MEAN PLT VOLUME 9.3 fl (7.5-11.1); NEUTROPHILS 83.4 % (42.8-82.8); PLATELET COUNT 215 K/MM3 (134-434); RDW 14.7 % (11.6-15.6); WHITE BLOOD COUNT 11.3 K/mm3 (4.0-10.0)
--- NOTE | 2017-03-26 07:13 | PDOC ---
History of Present Illness - General Chief Complaint: Nausea/Vomiting Stated Complaint: VOMITING History Source: Patient, Old Records Exam Limitations: No Limitations - History of Present Illness Initial Comments: 03/26/17 07:13 CHIEF COMPLAINT: Diarrhea HISTORY OF PRESENT ILLNESS: This is an 82 year old female with a history of IDDM , CAD/AL, HTN, diastolic CHF (O2 dependent), anemia/B12 deficiency, and SCC of the nose who presents to the ED complaining of numerous episodes of vomiting and watery diarrhea since yesterday. She has generalized abdominal pain and feels that her abdomen is distended. She has chills. She attributes her symptoms to eating potato salad at a barbecue on Sunday (the day prior to onset of symptoms) which "tasted funny." She denies hematemesis or hematochezia. Surgical history: Cholecystectomy Social history: Resides in assisted living facility PCP: Dr. Luis Action Installer: Dr. Murguia REVIEW OF SYSTEMS: GENERAL/CONSTITUTIONAL: Chills, no fever. No weakness. No weight change. HEAD, EYES, EARS, NOSE AND THROAT: No change in vision. No ear pain or discharge. No sore throat. CARDIOVASCULAR: No chest pain or palpitations. RESPIRATORY: No cough, wheezing, or shortness of breath. GASTROINTESTINAL: See HPI. GENITOURINARY: No dysuria, frequency, or change in urination. MUSCULOSKELETAL: No joint or muscle swelling or pain. No neck or back pain. SKIN: No rash or easy bruising. NEUROLOGIC: No headache, vertigo, loss of consciousness, or loss of sensation. PSYCHIATRIC: No depression or anxiety. ENDOCRINE: No increased thirst. No abnormal weight change. HEMATOLOGIC/LYMPHATIC: No anemia, easy bleeding, or history of blood clots. ALLERGIC/IMMUNOLOGIC: No hives or skin allergy. No latex allergy. PHYSICAL EXAM: GENERAL: The patient is awake, alert, and fully oriented, in no acute distress. ENT: Pupils equal, round and reactive to light, extraocular movements intact, sclera anicteric, conjunctiva clear. Neck supple. Mucous membranes dry. LUNGS: Clear to auscultation bilaterally. Normal excursion. No respiratory distress or use of accessory muscles. CV: RRR, S1/S2, no MRG. Cap refill < 2 sec. ABDOMEN: Softly distended, diffusely tender to palpation most notable in LLQ without guarding or rebound tenderness. EXTREMITIES: Normal range of motion. 2+ pitting edema bilaterally. Left calf tenderness. NEUROLOGICAL: Normal speech, normal gait. CN II-XII grossly intact. PSYCH: Normal mood, normal affect. SKIN: Warm, dry, normal turgor. Erythema from ankle to mid-tibia bilaterally; patient states this is chronic for her. Past History - Past Medical History Allergies/Adverse Reactions: Allergies Allergy/AdvReac Type Severity Reaction Status Date / Time No Known Drug Allergies Allergy Verified 03/26/17 07:20 TOMATO SAUCE ONLY Allergy Uncoded 03/26/17 07:20 Home Medications: Ambulatory Orders Aspirin [ASA -] 81 mg PO DAILY 09/10/14 Gabapentin [Neurontin] 100 mg PO Q8H 09/10/14 Amlodipine Besylate 10 mg PO DAILY 04/23/16 Metoprolol Succinate [Toprol Xl] 50 mg PO DAILY 04/23/16 Pantoprazole Sodium [Protonix] 40 mg PO BID 04/23/16 Ticagrelor [Brilinta] 90 mg PO BID 04/23/16 Valacyclovir HCl [Valtrex -] 1,000 mg PO DAILY 04/23/16 Potassium Chloride 20 meq PO DAILY #30 tablet.er 07/31/16 Acetaminophen [Mapap] 500 mg PO TID 09/29/16 Ascorbic Acid [Vitamin C -] 500 mg PO DAILY 09/29/16 Clotrimazole [Lotrimin -] 1 applic TP DAILY 09/29/16 Insulin Glargine,Hum.rec.anlog [Lantus Solostar PEN -] 35 units SQ ACDIN Loteprednol Etab 0.5% Oph Susp [Lotemax (Nf)] 1 drop OS DAILY 09/29/16 Multivitamins [Multivit ([facility] Formulary)] 1 tab PO DAILY 09/29/16 Mupirocin Cream [Bactroban 2% Cream -] 1 applic TP DAILY 09/29/16 Nystatin Powder [Nystop Powder -] 60 gm TP DAILY 09/29/16 Polyethylene Glycol 3350 [Purelax] 17 gm PO BID PRN 09/29/16 Sitagliptin Phosphate [Januvia] 100 mg PO ACBK 09/29/16 Furosemide [Lasix] 40 mg PO DAILY #60 tablet 10/10/16 Levofloxacin [Levaquin -] 250 mg PO DAILY@0600 #5 tablet 10/10/16 Metronidazole [Flagyl -] 500 mg PO TID #15 tablet 10/10/16 Ondansetron [Zofran Odt -] 4 mg SL TID PRN #21 od.tablet 03/26/17 Anemia: No 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) Cardiac Disorders: (CAD - cath, stent, AL) CHF: Yes Diabetes: Yes HTN: Yes Hypercholesterolemia: Yes - Surgical History Cholecystectomy: Yes Orthopedic Surgery: Yes (right hip ORIF 12/2013) - Immunization History Immunization Up to Date: No - Psycho/Social/Smoking Cessation Hx Anxiety: No Suicidal Ideation: No Smoking Status: No Smoking History: Never smoked Have you smoked in the past 12 months: No Number of Cigarettes Smoked Daily: 0 Cigars Per Day: 0 Hx Alcohol Use: No Drug/Substance Use Hx: No Substance Use Type: None Hx Substance Use Treatment: No Heart Score/ECG Review - ECG Intrepretation Comment:: 03/26/17 09:08 NSR at 79bpm, no ST or T wave changes ED Treatment Course - LABORATORY CBC & Chemistry Diagram: 03/26/17 06:54 03/26/17 06:54 Medical Decision Making - Medical Decision Making 03/26/17 08:05 A/P: 82 year old female with vomiting, diarrhea, and abdominal pain/distention. 1. EKG 2. Fingerstick blood glucose 3. CXR 4. Labs including CBC, comp, cardiac profile, lipase, acetone, UA/culture 5. Zofran 4mg IVP for nausea/vomiting 6. Gentle hydration (500 mLs NS at 100 mLs/hr) 7. CTAP with IV contrast as well as PO if patient is able to tolerate 8. Duplex LE u/s to r/o DVT (right calf tenderness, swelling/erythema although patient states this is chronic) 9. Re-assess 03/26/17 09:06 WBC mildly elevated at 11.3 with 83% neutrophils CrCl 44- will not give IV contrast Alk Phos elevated at 211- chronic Troponin <0.02 CXR: Minimal congestive changes Lactic acid 1.9 03/26/17 12:00 CTAP: No acute process Duplex LE u/s neg for DVT Patient is feeling better. Repeat abdominal exam: still with mild bilateral lower quadrant tenderness, L>R. No vomiting and able to to tolerate juice but has had continuous diarrhea. Will request observation. *DC/Admit/Observation/Transfer Diagnosis at time of Disposition: Vomiting and diarrhea Abdominal pain Qualifiers: Abdominal location: generalized Qualified Code(s): R10.84 - Generalized abdominal pain - Discharge Dispostion Admit: Yes - Prescriptions Prescriptions: Ondansetron [Zofran Odt -] 4 mg SL TID PRN #21 od.tablet PRN Reason: nausea/vomiting - Referrals Referrals: Fouzia Luis MD [Primary Care Provider] - - Patient Instructions Printed Discharge Instructions: DI for Viral Gastroenteritis -- Adult, Gastroenteritis Diet
[2017-03-26] MEDS ORDERED: ONDANSETRON 4 MG/2 ML VIAL IVPUSH ONE (07:17)
[2017-03-26] MEDS ORDERED: SODIUM CHLORIDE 500 ML IV STA (07:18)
[2017-03-26 07:19] LABS: INR 0.99 (0.82-1.09); PROTHROMBIN TIME (PATIENT) 10.9 SEC (9.98-11.88)
[2017-03-26] MEDS ORDERED: ONDANSETRON 4 MG/2 ML VIAL ONE ×2 (07:19→08:09)
[2017-03-26 07:22] LABS: ACTIVATED PTT 31.2 SECONDS (26.9-34.4)
[2017-03-26 07:57] LABS: ALBUMIN 3.8 g/dl (3.4-5.0); ANION GAP 11 (8-16); BILIRUBIN,TOTAL 0.5 mg/dL (0.2-1.0); CALCIUM 9.2 mg/dL (8.5-10.1); CO2 23 mmol/L (21-32); CREATININE 1.2 mg/dL (0.55-1.02); GLUCOSE,RANDOM 144 mg/dL (74-106); SGOT/AST 28 U/L (15-37); SGPT/ALT 29 U/L (12-78)
[2017-03-26 07:58] LABS: ALK PHOS 211 U/L (45-117); CPK 68 IU/L (26-192); TOT PROT 7.1 g/dl (6.4-8.2); TROPONIN I < 0.02 ng/ml (0.00-0.05)
[2017-03-26 09:14] LABS: MAGNESIUM 2.1 mg/dL (1.8-2.4)
--- NOTE | 2017-03-26 09:49 | EKG ---
Test Reason : Blood Pressure : / mmHG Vent. Rate : 079 BPM Atrial Rate : 079 BPM P-R Int : 200 ms QRS Dur : 096 ms QT Int : 394 ms P-R-T Axes : 010 021 045 degrees QTc Int : 451 ms NORMAL SINUS RHYTHM NORMAL ECG WHEN COMPARED WITH ECG OF 29-SEP-2016 03:29, NO SIGNIFICANT CHANGE WAS FOUND Confirmed by TAMRA JORDAN MD ([id number]) on 03/26/2017 9:49:06 AM Referred By: Confirmed By:TAMRA JORDAN MD
--- NOTE | 2017-03-26 10:36 | PDOC ---
*Physical Exam - Vital Signs Last Vital Signs Temp Pulse Resp BP Pulse Ox 98.6 F 74 15 120/60 97 03/26/17 07:11 03/26/17 07:11 03/26/17 07:11 03/26/17 07:11 03/26/17 07:11 ED Treatment Course - LABORATORY CBC & Chemistry Diagram: 03/26/17 06:54 03/26/17 06:54 - ADDITIONAL ORDERS Additional order review: Laboratory Results 03/26/17 03/26/17 03/26/17 08:30 06:54 06:54 INR PTT (Actin FS) Sodium 138 Potassium 3.7 Chloride 104 Carbon Dioxide 23 Anion Gap 11 BUN 32 H D Creatinine 1.2 H D Creat Clearance w eGFR 42.80 Random Glucose 144 H D Lactic Acid 1.9 Calcium 9.2 Magnesium 2.1 Total Bilirubin 0.5 D AST 28 D ALT 29 D Alkaline Phosphatase 211 H Creatine Kinase 68 Troponin I < 0.02 Total Protein 7.1 D Albumin 3.8 D Lipase 96 Acetone, Qual Negative L 03/26/17 06:54 INR 0.99 PTT (Actin FS) 31.2 Sodium Potassium Chloride Carbon Dioxide Anion Gap BUN Creatinine Creat Clearance w eGFR Random Glucose Lactic Acid Calcium Magnesium Total Bilirubin AST ALT Alkaline Phosphatase Creatine Kinase Troponin I Total Protein Albumin Lipase Acetone, Qual 03/26/17 06:54 RBC 4.44 MCV 87.9 MCHC 33.9 RDW 14.7 MPV 9.3 Neutrophils % 83.4 H Lymphocytes % 6.3 L D Monocytes % 8.3 Eosinophils % 1.6 Basophils % 0.4 - Medications Given in the ED: ED Medications Discontinued Medications Generic Name Dose Route Start Last Admin Trade Name Jas PRN Reason Stop Dose Admin Ondansetron HCl 4 mg 03/26/17 07:17 03/26/17 07:23 Zofran Injection IVPUSH 03/26/17 07:18 4 mg ONCE ONE Administration Medical Decision Making - Medical Decision Making 03/26/17 10:34 Patient seen and evaluated with the nurse practitioner. I agree with the overall evaluation, assessment, and management with the following summary of visit: 82y/o F h/o multiple medical problems p/w v/d/abd pain and abd distension on exam with diffuse ttp but no focal guarding/rebound. ? toxin mediated enteritis/ colitis given history. labs, comp, ua CTAP ivf reassess *DC/Admit/Observation/Transfer Diagnosis at time of Disposition: Abdominal pain Qualifiers: Abdominal location: generalized Qualified Code(s): R10.84 - Generalized abdominal pain
[2017-03-26 13:32] LABS: URINE APPEARANCE CLEAR; URINE BILIRUBIN NEGATIVE (NEGATIVE); URINE BLOOD NEGATIVE (NEGATIVE); URINE COLOR YELLOW; URINE GLUCOSE (UA) NEGATIVE (NEGATIVE); URINE KETONE NEGATIVE (NEGATIVE); URINE LEUK ESTERASE NEGATIVE (NEGATIVE); URINE NITRITE NEGATIVE (NEGATIVE); URINE PROTEIN NEGATIVE (NEGATIVE); URINE UROBILINOGEN NEGATIVE mg/dL (0.2-1.0)
[2017-03-26] MEDS ORDERED: LEVOFLOXACIN 500 MG IVPB 100 ML IVPB ONE (15:58)
[2017-03-26] MEDS ORDERED: METRONIDAZOLE 500 MG PREMIXED 100 ML IVPB ONE (15:59)
--- NOTE | 2017-03-26 17:13 | HP ---
Admitting History and Physical - Primary Care Physician PCP: Roel Leon - Admission History of Present Illness: This is an 82 year old female with a history of IDDM, CAD/DC, HTN, diastolic CHF (O2 dependent), anemia/B12 deficiency, and SCC of the nose who presents to the ED complaining of numerous episodes of vomiting and watery diarrhea since yesterday. She has generalized abdominal pain and feels that her abdomen is distended. She has chills. She attributes her symptoms to eating potato salad at a barbecue on Sunday (the day prior to onset of symptoms) which "tasted funny." She denies hematemesis or hematochezia. 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 Cardiovascular: Yes: CAD, CHF, HTN, DC (10/02/2015 resulting in a single stent insertion) Gastrointestinal: Yes: Diverticulosis, Peptic Ulcer Disease, Other (colon polyp) Hepatobiliary: Yes: Cholecystitis (prior cholecystitis s/p perc roxana tube from 11/2013-02/2014), Choledocholithiasis (resolved spontaneously) Renal/: Yes: Renal Failure (on prior admission- resolved) Heme/Onc: No: Anemia, B12 Deficiency, Bleeding Disorder, Cancer, Current Chemotherapy, Current Radiation Therapy, Hemochromatosis, Hypercoaguable State, Myeloproliferative Synd, Sickle Cell Disease, Sickle Cell Trait, Thrombocytopenia, Other Rheumatology: Yes: Gout Endocrine: Yes: Diabetes Mellitus (c/b peripheral neuropathy) Dermatology: Yes: 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, 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) - Past Surgical History Past Surgical History: Yes: Cholecystectomy (Lap Choly), Colonoscopy, Hysterectomy (TAHBSO), Tonsillectomy - Advance Directives Advance Directives: Yes: Health Care Proxy - Smoking History Smoking history: Never smoked Have you smoked in the past 12 months: No Aproximately how many cigarettes per day: 0 - Alcohol/Substance Use Hx Alcohol Use: No History of Substance Use: reports: None - Social History ADL: Support Services 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 History of Recent Travel: No Home Medications - Allergies Allergies/Adverse Reactions: Allergies Allergy/AdvReac Type Severity Reaction Status Date / Time No Known Drug Allergies Allergy Verified 03/26/17 07:20 TOMATO SAUCE ONLY Allergy Uncoded 03/26/17 07:20 - Home Medications Home Medications: Ambulatory Orders Aspirin [ASA -] 81 mg PO 1700 09/10/14 Gabapentin [Neurontin] 100 mg PO Q8H 09/10/14 Amlodipine Besylate 10 mg PO 0 04/23/16 Pantoprazole Sodium [Protonix] 40 mg PO BID 04/23/16 Ticagrelor [Brilinta] 90 mg PO BID 04/23/16 Valacyclovir HCl [Valtrex -] 500 mg PO DAILY 04/23/16 Potassium Chloride 20 meq PO DAILY #30 tablet.er 07/31/16 Acetaminophen [Mapap] 500 mg PO TID 09/29/16 Ascorbic Acid [Vitamin C -] 500 mg PO 169909/29/16 Clotrimazole [Lotrimin -] 1 applic TP BID 09/29/16 Insulin Glargine,Hum.rec.anlog [Lantus Solostar PEN -] 35 units SQ 1699 Loteprednol Etab 0.5% Oph Susp [Lotemax (Nf)] 1 drop OS 169909/29/16 Multivitamins [Multivit ([facility] Formulary)] 1 tab PO DAILY 09/29/16 Polyethylene Glycol 3350 [Purelax] 17 gm PO MOWEFR PRN 09/29/16 Sitagliptin Phosphate [Januvia] 100 mg PO ACBK 09/29/16 Atorvastatin Ca [Lipitor] 40 mg PO DAILY 03/26/17 Furosemide [Lasix] 40 mg PO BID 03/26/17 Sennosides [Senna] 8.6 mg PO 0 03/26/17 Family Disease History - Family Disease History Family Disease History: Diabetes: Sister ( of CLOUD rt cirrhosis ), Heart Disease: Father ( at age 33 with DC), Brother ( after CABG), CA: Mother ( of Ovarian cancer at age 57), Other: Sister Physical Examination Vital Signs: Vital Signs Temperature 98.3 F 03/26/17 16:58 Pulse Rate 73 03/26/17 16:58 Respiratory Rate 19 03/26/17 16:58 Blood Pressure 114/54 03/26/17 16:58 O2 Sat by Pulse Oximetry (%) 95 03/26/17 16:39 Constitutional: Yes: No Distress HENT: Yes: Atraumatic Neck: Yes: Supple Cardiovascular: Yes: Regular Rate and Rhythm Respiratory: Yes: CTA Bilaterally Gastrointestinal: Yes: Normal Bowel Sounds Extremities: Yes: WNL Edema: No Peripheral Pulses WNL: Yes Neurological: Yes: Alert Problem List - Problems (1) Abdominal pain Assessment/Plan: improving prn pain meds Code(s): R10.9 - UNSPECIFIED ABDOMINAL PAIN Qualifiers: Qualified Code(s): R10.84 - Generalized abdominal pain (2) Vomiting and diarrhea Assessment/Plan: ivf prn zofran will send stool and blood cxs Code(s): R11.10 - VOMITING, UNSPECIFIED R19.7 - DIARRHEA, UNSPECIFIED Assessment/Plan Laboratory Tests 03/26/17 03/26/17 03/26/17 06:54 06:54 06:54 WBC 11.3 H D RBC 4.44 Hgb 13.2 Hct 39.0 MCV 87.9 MCH 29.8 MCHC 33.9 RDW 14.7 Plt Count 215 MPV 9.3 Neutrophils % 83.4 H Lymphocytes % 6.3 L D Monocytes % 8.3 Eosinophils % 1.6 Basophils % 0.4 INR 0.99 PTT (Actin FS) 31.2 Sodium 138 Potassium 3.7 Chloride 104 Carbon Dioxide 23 Anion Gap 11 BUN 32 H D Creatinine 1.2 H D Creat Clearance w eGFR 42.80 Random Glucose 144 H D Lactic Acid Calcium 9.2 Magnesium 2.1 Total Bilirubin 0.5 D AST 28 D ALT 29 D Alkaline Phosphatase 211 H Creatine Kinase 68 Troponin I < 0.02 Total Protein 7.1 D Albumin 3.8 D Lipase 96 Urine Color Urine Appearance Urine pH Urine Protein Urine Glucose (UA) Urine Ketones Urine Blood Urine Nitrite Urine Bilirubin Urine Urobilinogen Ur Leukocyte Esterase Acetone, Qual 03/26/17 03/26/17 03/26/17 06:54 08:30 11:59 WBC RBC Hgb Hct MCV MCH MCHC RDW Plt Count MPV Neutrophils % Lymphocytes % Monocytes % Eosinophils % Basophils % INR PTT (Actin FS) Sodium Potassium Chloride Carbon Dioxide Anion Gap BUN Creatinine Creat Clearance w eGFR Random Glucose Lactic Acid 1.9 Calcium Magnesium Total Bilirubin AST ALT Alkaline Phosphatase Creatine Kinase Troponin I Total Protein Albumin Lipase Urine Color Yellow Urine Appearance Clear Urine pH 5.0 Urine Protein Negative Urine Glucose (UA) Negative Urine Ketones Negative Urine Blood Negative Urine Nitrite Negative Urine Bilirubin Negative Urine Urobilinogen Negative Ur Leukocyte Esterase Negative Acetone, Qual Negative L Active Medications Generic Name Dose Route Start Last Admin Trade Name Freq PRN Reason Stop Dose Admin Acetaminophen 650 mg 03/28/17 16:16 Tylenol - PO Q6H PRN FEVER OR PAIN Hydromorphone HCl 1 mg 03/27/17 12:41 03/28/17 11:35 Dilaudid Injection - IVPB 1 mg Q4H PRN Administration PAIN Pantoprazole Sodium 100 mls @ 200 mls/hr 03/26/17 17:30 03/28/17 09:36 Protonix 40mg Ivpb (Pre-Docked) IVPB 200 mls/hr DAILY JO[facility] ELIAS Administration
--- NOTE | 2017-03-26 17:41 | CON.GI ---
Consult Consult Specialty:: GI Referred by:: Dr Leon Reason for Consultation:: N/V/D - History of Present Illness Chief Complaint: N/V/D History of Present Illness: 82 F with h/o IDDM, CAD/SD/stent, HTN, B12 def, admitted with 24 hours of N/V/ D. She states the symptoms started after eating potato salad at a barbecue 2 days ago. She states she now has abdominal pain as well. She has a h/o [id number] and was treated with a percutaneous cholcystostomy tube. She was seen in the past by Dr Man who did her colonoscopy in Sep 2016 while in the hospital for a similar problem. Colitis was noted in the L colon and biopsies came back with dx of ischemic colitis.. She has had a persistently elevated alk phos for years. No AMA in record . 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 History of Recent Travel: No Home Medications - Allergies Allergies/Adverse Reactions: Allergies Allergy/AdvReac Type Severity Reaction Status Date / Time No Known Drug Allergies Allergy Verified 03/26/17 07:20 TOMATO SAUCE ONLY Allergy Uncoded 03/26/17 07:20 - Home Medications Home Medications: Ambulatory Orders Aspirin [ASA -] 81 mg PO 1700 09/10/14 Gabapentin [Neurontin] 100 mg PO Q8H 09/10/14 Amlodipine Besylate 10 mg PO 1700 04/23/16 Pantoprazole Sodium [Protonix] 40 mg PO BID 04/23/16 Ticagrelor [Brilinta] 90 mg PO BID 04/23/16 Valacyclovir HCl [Valtrex -] 500 mg PO DAILY 04/23/16 Potassium Chloride 20 meq PO DAILY #30 tablet.er 07/31/16 Acetaminophen [Mapap] 500 mg PO TID 09/29/16 Ascorbic Acid [Vitamin C -] 500 mg PO 0 09/29/16 Clotrimazole [Lotrimin -] 1 applic TP BID 09/29/16 Insulin Glargine,Hum.rec.anlog [Lantus Solostar PEN -] 35 units SQ 0 Loteprednol Etab 0.5% Oph Susp [Lotemax (Nf)] 1 drop OS 0 09/29/16 Multivitamins [Multivit ([facility] Formulary)] 1 tab PO DAILY 09/29/16 Polyethylene Glycol 3350 [Purelax] 17 gm PO MOWEFR PRN 09/29/16 Sitagliptin Phosphate [Januvia] 100 mg PO ACBK 09/29/16 Atorvastatin Ca [Lipitor] 40 mg PO DAILY 03/26/17 Furosemide [Lasix] 40 mg PO BID 03/26/17 Sennosides [Senna] 8.6 mg PO 1700 03/26/17 Family Disease History - Family Disease History Family Disease History: Diabetes: Sister ( of CLOUD rt cirrhosis ), Heart Disease: Father ( at age 33 with SD), Brother ( after CABG), CA: Mother ( of Ovarian cancer at age 57), Other: Sister Physical Exam-GI Vital Signs: Vital Signs Temperature 98.3 F 03/26/17 16:58 Pulse Rate 73 03/26/17 16:58 Respiratory Rate 19 03/26/17 16:58 Blood Pressure 114/54 03/26/17 16:58 O2 Sat by Pulse Oximetry (%) 95 03/26/17 16:39 Constitutional: Yes: Well Nourished, Calm, Mild Distress (pain) HENT: Yes: Normocephalic Cardiovascular: Yes: Regular Rate and Rhythm Respiratory: Yes: CTA Bilaterally Gastrointestinal Inspection: Yes: Distention ...Auscultate: Yes: Normoactive Bowel Sounds ...Palpate: Yes: Soft, Tenderness (diffuse) Neurological: Yes: WNL Labs: INR, PTT INR 0.99 (0.82-1.09) 03/26/17 06:54 CBC, BMP 03/26/17 06:54 03/26/17 06:54 Hepatic Panel Total Bilirubin 0.5 mg/dL (0.2-1.0) D 03/26/17 06:54 AST 28 U/L (15-37) D 03/26/17 06:54 ALT 29 U/L (12-78) D 03/26/17 06:54 Alkaline Phosphatase 211 U/L (45-117) H 03/26/17 06:54 Albumin 3.8 g/dl (3.4-5.0) D 03/26/17 06:54 Imaging - Results Cat Scan: Report Reviewed Assessment/Plan 82 F with above history now wiht findings as noted above. While the problem is likely food-borne illness ( symptoms suggest B cereus) her history of ischemic colitis with similar symptoms cant be ignored. Rec Clear liquid diet Check CPK and myoglobin Lactic acid fractionate alk phos (? from bone) and check GGT, AMA
[2017-03-26] MEDS: SODIUM CHLORIDE 1,000 ML IV SCH (17:52)
[2017-03-26] MEDS: PANTOPRAZOLE SODIUM 100 ML IVPB SCH (18:19)
[2017-03-27] MEDS: SODIUM CHLORIDE 1,000 ML IV SCH ×2 (11:00→17:08)
[2017-03-27] MEDS: PANTOPRAZOLE SODIUM 100 ML IVPB SCH (11:00)
[2017-03-27] MEDS: HYDROmorphone HCL CARPU-JECT 1 MG/1 ML DISP.SYRIN IVPB PRN (13:05)
--- NOTE | 2017-03-27 14:13 | CONSULT ---
Consult Consult Specialty:: infectious diseases Reason for Consultation:: bacteremia - History of Present Illness Chief Complaint: abd pain History of Present Illness: 82 year old female with a history of IDDM, CAD/DC, HTN, diastolic CHF (O2 dependent), anemia/B12 deficiency, and SCC of the nose admitted because of episodes of vomiting and watery diarrhea since yesterday. She has generalized abdominal pain and feels that her abdomen is distended. She has chills. She attributes her symptoms to eating potato salad at a [employer] on Sunday which "tasted funny." She denies hematemesis or hematochezi according to the patient they had family picnic and she took some of the food at home currently patient looks much comfortable no complaints patient was worked up and is showing 1 bottle growth of bacteria in blood patient has a h/o choledocholithiasis and was treated with a percutaneous cholcystostomy tube. Her previous colonoscopy showed. Colitis in the L colon and biopsies were done dx of ischemic colitis.. - History Source History Provided By: Patient, Medical Record Limitations to Obtaining History: No Limitations - Past Medical History SERVICING REP: Yes: Peripheral Neuropathy Cardio/Vascular: Yes: CAD, CHF, HTN, DC (10/02/2015 resulting in a single stent insertion) Gastrointestinal: Yes: Diverticulosis, Peptic Ulcer Disease, Other (colon polyp) Hepatobiliary: Yes: Cholecystitis (prior cholecystitis s/p perc roxana tube from 11/2013-02/2014), Choledocholithiasis (resolved spontaneously) Renal/: Yes: Renal Failure (on prior admission- resolved) Rheumatology: Yes: Gout Endocrine: Yes: Diabetes Mellitus (c/b peripheral neuropathy) Dermatology: Yes: 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 History of Recent Travel: No Home Medications - Allergies Allergies/Adverse Reactions: Allergies Allergy/AdvReac Type Severity Reaction Status Date / Time No Known Drug Allergies Allergy Verified 03/26/17 07:20 TOMATO SAUCE ONLY Allergy Uncoded 03/26/17 07:20 - Home Medications Home Medications: Ambulatory Orders Aspirin [ASA -] 81 mg PO 1700 09/10/14 Gabapentin [Neurontin] 100 mg PO Q8H 09/10/14 Amlodipine Besylate 10 mg PO 1700 04/23/16 Pantoprazole Sodium [Protonix] 40 mg PO BID 04/23/16 Ticagrelor [Brilinta] 90 mg PO BID 04/23/16 Valacyclovir HCl [Valtrex -] 500 mg PO DAILY 04/23/16 Potassium Chloride 20 meq PO DAILY #30 tablet.er 07/31/16 Acetaminophen [Mapap] 500 mg PO TID 09/29/16 Ascorbic Acid [Vitamin C -] 500 mg PO 169909/29/16 Clotrimazole [Lotrimin -] 1 applic TP BID 09/29/16 Insulin Glargine,Hum.rec.anlog [Lantus Solostar PEN -] 35 units SQ 1699 Loteprednol Etab 0.5% Oph Susp [Lotemax (Nf)] 1 drop OS 0 09/29/16 Multivitamins [Multivit ([facility] Formulary)] 1 tab PO DAILY 09/29/16 Polyethylene Glycol 3350 [Purelax] 17 gm PO MOWEFR PRN 09/29/16 Sitagliptin Phosphate [Januvia] 100 mg PO ACBK 09/29/16 Atorvastatin Ca [Lipitor] 40 mg PO DAILY 03/26/17 Furosemide [Lasix] 40 mg PO BID 03/26/17 Sennosides [Senna] 8.6 mg PO 1700 03/26/17 Family Disease History - Family Disease History Family Disease History: Diabetes: Sister ( of CLOUD rt cirrhosis ), Heart Disease: Father ( at age 33 with DC), Brother ( after CABG), CA: Mother ( of Ovarian cancer at age 57), Other: Sister Review of Systems - Review of Systems Constitutional: reports: Chills, Other Eyes: reports: No Symptoms HENT: reports: No Symptoms Neck: reports: No Symptoms Cardiovascular: reports: No Symptoms Respiratory: reports: No Symptoms Gastrointestinal: reports: Abdominal Pain, Diarrhea Genitourinary: reports: No Symptoms Musculoskeletal: reports: No Symptoms Integumentary: reports: No Symptoms Neurological: reports: No Symptoms Endocrine: reports: No Symptoms Hematology/Lymphatic: reports: No Symptoms Psychiatric: reports: No Symptoms Physical Exam Vital Signs: Vital Signs Temperature 97.9 F 03/27/17 10:00 Pulse Rate 66 03/27/17 10:00 Respiratory Rate 20 03/27/17 10:00 Blood Pressure 124/50 03/27/17 10:00 O2 Sat by Pulse Oximetry (%) 95 03/27/17 01:17 Constitutional: Yes: Well Nourished, Calm, Mild Distress Eyes: Yes: Conjunctiva Clear HENT: Yes: Atraumatic Neck: Yes: Supple, Trachea Midline Cardiovascular: Yes: Regular Rate and Rhythm Respiratory: Yes: Regular, CTA Bilaterally Gastrointestinal: Yes: Normal Bowel Sounds, Soft, Tenderness Musculoskeletal: Yes: WNL Extremities: Yes: WNL Neurological: Yes: Alert, Oriented Psychiatric: Yes: Alert Imaging - Results Chest X-ray: Report Reviewed, Image Reviewed Cat Scan: Report Reviewed, Image Reviewed Assessment/Plan looking at the history i think patient might have had food borne illness though i am not sure.patient feels much better today and has no complaints her dirrhoea and nause have also abated ct scan seen and report noted dirrhoea abd pain gm positive bacteremia weakness plan await for all cx to be back await for identification of the bacteria fuentes start patient on vanco hydration rest as per primary team
[2017-03-27] MEDS ORDERED: VANCOMYCIN 1,250 MG in DEXTROSE 5%-WATER - 250 ML IVPB SCH (16:00)
--- NOTE | 2017-03-27 17:19 | PN ---
Progress Note, Physician History of Present Illness: doing well - Current Medication List Current Medications: Active Medications Hydromorphone HCl (Dilaudid Injection -) 1 mg IVPB Q4H PRN PRN Reason: PAIN Last Admin: 03/27/17 13:05 Dose: 1 mg Pantoprazole Sodium (Protonix 40mg Ivpb (Pre-Docked)) 100 mls @ 200 mls/hr IVPB DAILY [facility] Last Admin: 03/27/17 11:00 Dose: 200 mls/hr Sodium Chloride (Normal Saline -) 1,000 mls @ 100 mls/hr IV ASDIR JOSE ELIAS Last Admin: 03/27/17 11:00 Dose: 100 mls/hr Vancomycin HCl 1,250 mg/ (Dextrose) 250 mls @ 125 mls/hr IVPB DAILY@1600 JOSE ELIAS PRN Reason: Protocol Last Admin: 03/27/17 15:29 Dose: 125 mls/hr - Objective Vital Signs: Vital Signs Temperature 98.2 F 03/27/17 14:59 Pulse Rate 74 03/27/17 14:59 Respiratory Rate 16 03/27/17 14:59 Blood Pressure 124/58 03/27/17 14:59 O2 Sat by Pulse Oximetry (%) 97 03/27/17 09:00 Constitutional: Yes: No Distress HENT: Yes: Atraumatic Neck: Yes: Supple Cardiovascular: Yes: Regular Rate and Rhythm Respiratory: Yes: CTA Bilaterally Gastrointestinal: Yes: Normal Bowel Sounds Extremities: Yes: WNL Neurological: Yes: Alert, Oriented Labs: INR, PTT INR 0.99 (0.82-1.09) 03/26/17 06:54 Problem List - Problems (1) Abdominal pain Assessment/Plan: improving prn pain meds Code(s): R10.9 - UNSPECIFIED ABDOMINAL PAIN Qualifiers: Qualified Code(s): R10.84 - Generalized abdominal pain (2) Vomiting and diarrhea Assessment/Plan: ivf prn zofran better Code(s): R11.10 - VOMITING, UNSPECIFIED R19.7 - DIARRHEA, UNSPECIFIED Assessment/Plan bcx positive...will wait for id input
[2017-03-28] MEDS: PANTOPRAZOLE SODIUM 100 ML IVPB SCH (09:36)
[2017-03-28 10:11] LABS: MCH 30.1 pg (25.7-33.7); MCHC 33.9 g/dl (32.0-36.0); MEAN CELL VOLUME 88.8 fl (80-96); MEAN PLT VOLUME 9.2 fl (7.5-11.1); PLATELET COUNT 183 K/MM3 (134-434); WHITE BLOOD COUNT 7.1 K/mm3 (4.0-10.0)
[2017-03-28 10:14] LABS: ANION GAP 7 (8-16); CO2 25 mmol/L (21-32); CREATININE 0.9 mg/dL (0.55-1.02); GLUCOSE,RANDOM 160 mg/dL (74-106)
[2017-03-28] MEDS: HYDROmorphone HCL CARPU-JECT 1 MG/1 ML DISP.SYRIN IVPB PRN (11:35)
--- NOTE | 2017-03-28 11:58 | HOSP ---
Physical Examination Vital Signs: Vital Signs Temperature 97.9 F 03/28/17 09:58 Pulse Rate 69 03/28/17 09:58 Respiratory Rate 24 03/28/17 09:58 Blood Pressure 107/43 03/28/17 09:58 O2 Sat by Pulse Oximetry (%) 93 L 03/28/17 09:45 Labs: CBC, BMP 03/28/17 08:54 03/28/17 08:54 Hospitalist Encounter Assessment: I was asked to evaluate patient for right arm pain. Patient states right arm pain when trying to flex or lift it. She reports baseline tingling and numbness of her bilateral hands due to neuropathy. Patient was able to lift her right arm without difficulty. When asking if she had any trauma to the area, patient denies. She reports that she thinks this is all due to "old age." Otherwise, patient denies fever, chills, nausea, vomiting, headache, chest pain, palpitations, shortness of breath. PHYSICAL EXAM: GENERAL: Awake, alert, oriented, in no acute distress HEART: RRR, Normal S1 and S2 LUNGS: CTA B/L ABDOMEN: Soft, distended, with moderate diffuse tenderness upon palpation without guarding or rebound tenderness. UPPER EXTREMITIES: firm, moveable mass with no tenderness upon palpation of right bicep LOWER EXTREMITIES: 1+ Pitting edema bilaterally VITAL SIGNS: BP: 133/66 HR: 68 02 Sat: 95% on 2L NC ASSESSMENT and PLAN: Right arm pain -Right arm X-ray ordered -Spoke to PCP and will take over Visit type - Emergency Visit Emergency Visit: Yes ED Registration Date: 03/26/17 Care time: The patient presented to the Emergency Department on the above date and was hospitalized for further evaluation of their emergent condition. - New Patient This patient is new to me today: Yes Date on this admission: 03/28/17 - Critical Care Critical Care patient: No
--- NOTE | 2017-03-28 13:30 | PN ---
Progress Note, Physician History of Present Illness: patient clinically stable though she is c/o of arm pain rt arm patient now going for imaging studies no dirrhoea - Current Medication List Current Medications: Active Medications Hydromorphone HCl (Dilaudid Injection -) 1 mg IVPB Q4H PRN PRN Reason: PAIN Last Admin: 03/28/17 11:35 Dose: 1 mg Pantoprazole Sodium (Protonix 40mg Ivpb (Pre-Docked)) 100 mls @ 200 mls/hr IVPB DAILY [facility] Last Admin: 03/28/17 09:36 Dose: 200 mls/hr Sodium Chloride (Normal Saline -) 1,000 mls @ 100 mls/hr IV ASDIR [facility] Last Admin: 03/27/17 17:08 Dose: Not Given - Objective Vital Signs: Vital Signs Temperature 97.9 F 03/28/17 09:58 Pulse Rate 69 03/28/17 09:58 Respiratory Rate 24 03/28/17 09:58 Blood Pressure 107/43 03/28/17 09:58 O2 Sat by Pulse Oximetry (%) 93 L 03/28/17 09:45 Constitutional: Yes: Calm, Mild Distress Neck: Yes: Supple, Trachea Midline Cardiovascular: Yes: Regular Rate and Rhythm Respiratory: Yes: Regular, CTA Bilaterally Gastrointestinal: Yes: Normal Bowel Sounds, Soft Musculoskeletal: Yes: WNL Extremities: Yes: WNL Neurological: Yes: Alert, Oriented Psychiatric: Yes: Alert, Oriented Labs: CBC, BMP 03/28/17 08:54 03/28/17 08:54 INR, PTT INR 0.99 (0.82-1.09) 03/26/17 06:54 Assessment/Plan dirrhoea abd pain gm positive bacteremia weakness plan cx results noted will stop vanco await for imaging studies rest as per primary
--- NOTE | 2017-03-28 17:57 | PN ---
Progress Note, Physician History of Present Illness: doing well - Current Medication List Current Medications: Active Medications Acetaminophen (Tylenol -) 650 mg PO Q6H PRN PRN Reason: FEVER OR PAIN Hydromorphone HCl (Dilaudid Injection -) 1 mg IVPB Q4H PRN PRN Reason: PAIN Last Admin: 03/28/17 11:35 Dose: 1 mg Pantoprazole Sodium (Protonix 40mg Ivpb (Pre-Docked)) 100 mls @ 200 mls/hr IVPB DAILY JOSE ELIAS Last Admin: 03/28/17 09:36 Dose: 200 mls/hr - Objective Vital Signs: Vital Signs Temperature 98.6 F 03/28/17 14:40 Pulse Rate 69 03/28/17 14:40 Respiratory Rate 18 03/28/17 14:40 Blood Pressure 131/63 03/28/17 14:40 O2 Sat by Pulse Oximetry (%) 90 L 03/28/17 11:00 Constitutional: Yes: No Distress HENT: Yes: Atraumatic Neck: Yes: Supple Cardiovascular: Yes: Regular Rate and Rhythm Respiratory: Yes: CTA Bilaterally Gastrointestinal: Yes: Normal Bowel Sounds Extremities: Yes: WNL, Other (R arm has muscle stiffness no fracture) Edema: No Peripheral Pulses WNL: Yes Neurological: Yes: Alert, Oriented Labs: CBC, BMP 03/28/17 08:54 03/28/17 08:54 INR, PTT INR 0.99 (0.82-1.09) 03/26/17 06:54 Problem List - Problems (1) Abdominal pain Assessment/Plan: resolving... fuentes start regular diet prn pain meds Code(s): R10.9 - UNSPECIFIED ABDOMINAL PAIN Qualifiers: Qualified Code(s): R10.84 - Generalized abdominal pain (2) Vomiting and diarrhea Assessment/Plan: resolved Code(s): R11.10 - VOMITING, UNSPECIFIED R19.7 - DIARRHEA, UNSPECIFIED Assessment/Plan repeat bc off of abx regular diet
[2017-03-28] MEDS: ACETAMINOPHEN 325 MG TABLET (FP) PO PRN (21:53)
[2017-03-29] MEDS: HYDROmorphone HCL CARPU-JECT 1 MG/1 ML DISP.SYRIN IVPB PRN (06:37)
[2017-03-29] MEDS: PANTOPRAZOLE SODIUM 100 ML IVPB SCH ×2 (10:46→19:13)
[2017-03-29] MEDS ORDERED: FUROSEMIDE 40 MG/4 ML INJECTABLE VIAL IVPUSH ONE ×2 (11:30→18:45)
[2017-03-29] MEDS ORDERED: FUROSEMIDE 40 MG TABLET (FP) PO ONE ×2 (11:30→12:00)
--- NOTE | 2017-03-29 11:38 | RAPID ---
Physical Examination Vital Signs: Vital Signs Initial Vitals Temperature 100.2 F H Pulse Rate 91 Respiratory Rate 32 H Blood Pressure 154/65 O2 83 % on 4 L Constitutional: Yes: Well Nourished, Anxious, Moderate Distress Eyes: Yes: WNL, Conjunctiva Clear, EOM Intact HENT: Yes: WNL, Atraumatic, Normocephalic Respiratory: Yes: Other (Bilateral crackles throughout lung hernandez. On Nasal O2 4L) Edema: LLE: 2+, RLE: 2+ Rapid Response - Rapid Response Assessment: Rapid Response called at 11:00. Patient was found to be desaturating to 83% on 4L NC. O2 increased to 6L NC with minimal improvement in her saturation. Patient put on non rebreather. O2 sats increased to 93%, however patient was anxious and removed the venti mask. Patient was put back on 6L NC. Patient refuses anything over her mouth, including non rebreather and venti mask. Patient's O2 sats decreased to 88%. Stat CXR ordered and patient given 20 mg of IM Lasix due to no IV access available. Patient was not able to be laid flat to obtain an IV site elsewhere due to her condition. Patient refused 2nd dose of 20 mg IM Lasix. Called PMD at 1140, physician requested 40 mg PO lasix, however 20 mg IM dose already given. 40 mg of PO lasix given. PMD will f/u later in the day. A/P Patient is an 82 y.o. F with PMH of CHF on home lasix 40 mg BID. Patient's lasix have been held since 03/26 due to CAROLYN and appears fluid overloaded. -Stat CXR -20 mg IM Lasix -40 mg PO Lasix -Palliative on board to discuss DNR/DNI status Critical Care Total Critical Care Time (in minutes): 30 Critical Care Statement: The care of this patient involved high complexity decision making to prevent further life threatening deterioration of the patient 's condition and/or to evalute & treat vital organ system(s) failure or risk of failure.
[2017-03-29] MEDS ORDERED: FUROSEMIDE 40 MG/4 ML INJECTABLE VIAL IM ONE (12:00)
[2017-03-29 14:16] LABS: ALKALINE PHOSPHATASE 164 IU/L (39-117); INTESTINAL FRAC.: 0 % (0-18)
[2017-03-29] MEDS ORDERED: KETOROLAC TROMETHAMINE 15 MG/ML VIAL IVPUSH PRN (15:28)
--- NOTE | 2017-03-29 15:29 | PN ---
Progress Note, Physician History of Present Illness: events noted pt signed dnr breathing better refusing non rebreather - Current Medication List Current Medications: Active Medications Acetaminophen (Tylenol -) 650 mg PO Q6H PRN PRN Reason: FEVER OR PAIN Last Admin: 03/28/17 21:53 Dose: 650 mg Furosemide (Lasix Injection -) 40 mg IVPUSH BIDLASIX JOSE ELIAS Pantoprazole Sodium (Protonix 40mg Ivpb (Pre-Docked)) 100 mls @ 200 mls/hr IVPB DAILY JOSE ELIAS Last Admin: 03/29/17 10:46 Dose: Not Given Nystatin (Nystop Powder -) 1 applic TP BID JOSE ELIAS - Objective Vital Signs: Vital Signs Temperature 100.5 F H 03/29/17 13:45 Pulse Rate 84 03/29/17 13:45 Respiratory Rate 28 H 03/29/17 13:45 Blood Pressure 143/59 03/29/17 13:45 O2 Sat by Pulse Oximetry (%) 94 L 03/28/17 21:00 Constitutional: Yes: Calm HENT: Yes: Atraumatic Neck: Yes: Supple Cardiovascular: Yes: Regular Rate and Rhythm Respiratory: Yes: CTA Bilaterally, Rhonchi Gastrointestinal: Yes: Normal Bowel Sounds Extremities: Yes: WNL Neurological: Yes: Alert, Oriented Labs: INR, PTT INR 0.99 (0.82-1.09) 03/26/17 06:54 Problem List - Problems (1) Abdominal pain Assessment/Plan: on and off prn pain meds on regular diet Code(s): R10.9 - UNSPECIFIED ABDOMINAL PAIN Qualifiers: Qualified Code(s): R10.84 - Generalized abdominal pain (2) Vomiting and diarrhea Assessment/Plan: resolved Code(s): R11.10 - VOMITING, UNSPECIFIED R19.7 - DIARRHEA, UNSPECIFIED
--- NOTE | 2017-03-29 16:16 | EKG ---
Test Reason : Blood Pressure : / mmHG Vent. Rate : 078 BPM Atrial Rate : 078 BPM P-R Int : 208 ms QRS Dur : 092 ms QT Int : 380 ms P-R-T Axes : 015 042 056 degrees QTc Int : 433 ms NORMAL SINUS RHYTHM NORMAL ECG WHEN COMPARED WITH ECG OF 26-MAR-2017 07:10, NO SIGNIFICANT CHANGE WAS FOUND Confirmed by EUN NOEL MD ([id number]) on 03/29/2017 4:16:02 PM Referred By: CHRISTY COMER Confirmed By:EUN NOEL MD
[2017-03-29] MEDS: ACETAMINOPHEN 325 MG TABLET (FP) PO PRN (16:30)
[2017-03-29 16:59] LABS: BASOPHIL 0.6 % (0-2.0); EOSINOPHIL 1.1 % (0-4.5); MCH 29.3 pg (25.7-33.7); MCHC 33.5 g/dl (32.0-36.0); MEAN CELL VOLUME 87.6 fl (80-96); MEAN PLT VOLUME 9.1 fl (7.5-11.1); NEUTROPHILS 78.7 % (42.8-82.8); PLATELET COUNT 195 K/MM3 (134-434); RDW 14.8 % (11.6-15.6); WHITE BLOOD COUNT 9.2 K/mm3 (4.0-10.0)
[2017-03-29 17:30] LABS: ALBUMIN 3.1 g/dl (3.4-5.0); ANION GAP 9 (8-16); BILIRUBIN,TOTAL 0.5 mg/dL (0.2-1.0); CALCIUM 8.3 mg/dL (8.5-10.1); CO2 25 mmol/L (21-32); CREATININE 0.9 mg/dL (0.55-1.02); GLUCOSE,RANDOM 149 mg/dL (74-106); SGOT/AST 14 U/L (15-37); SGPT/ALT 22 U/L (12-78); TOT PROT 6.3 g/dl (6.4-8.2)
[2017-03-29 17:44] LABS: ALK PHOS 191 U/L (45-117); CPK 45 IU/L (26-192); TROPONIN I 0.52 ng/ml (0.00-0.05)
--- NOTE | 2017-03-29 18:12 | CON.CARD ---
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 Patient had rapid response this am for hypoxia and increased work of breathing with minimal movement. Per patient she denies any worsening of sob. Has remained hypoxic in 80's since episode b/c patient refusing to wear face mask ( causing her to much anxiety). Had meeting with palliative care this afternoon and patient made DNR/DNI per patient preference. Currently saturating 88-90% on nasal cannula at rest and with elevation of head of bed. Quickly desaturates to mid 80's with agitation or movement. S/p IM lasix this afternoon (did not have IV in place at the time) with improvement in work of breathing per nursing. Now has IV. Has had minimal po intake here with nausea and diarrhea and has been supported with IVF which were stopped yesterday. . Patient states she is on chronic home oxygen with sob at baseline, patient states she feels she is at her baseline. No diagnosis of pulmonary disease in system. Chronic LE edema. She states it is stable. No cp, palps, dizzy, pmhx/pshx per hpi social hx: Wheelchair bound, lives at [facility], sits in chair all day. not a current smoker fam hx: no premature cad ros: per hpi Ambulatory Orders Aspirin [ASA -] 81 mg PO 169909/10/14 Gabapentin [Neurontin] 100 mg PO Q8H 09/10/14 Amlodipine Besylate 10 mg PO 169904/23/16 Pantoprazole Sodium [Protonix] 40 mg PO BID 04/23/16 Ticagrelor [Brilinta] 90 mg PO BID 04/23/16 Valacyclovir HCl [Valtrex -] 500 mg PO DAILY 04/23/16 Potassium Chloride 20 meq PO DAILY #30 tablet.er 07/31/16 Acetaminophen [Mapap] 500 mg PO TID 09/29/16 Ascorbic Acid [Vitamin C -] 500 mg PO 169909/29/16 Clotrimazole [Lotrimin -] 1 applic TP BID 09/29/16 Insulin Glargine,Hum.rec.anlog [Lantus Solostar PEN -] 35 units SQ 1699 Loteprednol Etab 0.5% Oph Susp [Lotemax (Nf)] 1 drop OS 169909/29/16 Multivitamins [Multivit ([facility] Formul[facility])] 1 tab PO DAILY 09/29/16 Polyethylene Glycol 3350 [Purelax] 17 gm PO MOWEFR PRN 09/29/16 Sitagliptin Phosphate [Januvia] 100 mg PO ACBK 09/29/16 Atorvastatin Ca [Lipitor] 40 mg PO DAILY 03/26/17 Furosemide [Lasix] 40 mg PO BID 03/26/17 Sennosides [Senna] 8.6 mg PO 1700 03/26/17 Current Medications Acetaminophen (Tylenol -) 650 mg PO Q6H PRN PRN Reason: FEVER OR PAIN Last Admin: 03/29/17 16:30 Dose: 650 mg Furosemide (Lasix Injection -) 40 mg IVPUSH BIDLASIX [facility] Pantoprazole Sodium (Protonix 40mg Ivpb (Pre-Docked)) 100 mls @ 200 mls/hr IVPB DAILY [facility] Last Admin: 03/29/17 10:46 Dose: Not Given Ketorolac Tromethamine (Toradol Injection -) 15 mg IVPUSH Q6H PRN PRN Reason: PAIN Stop: 04/03/17 15:27 Nystatin (Nystop Powder -) 1 applic TP BID [facility] Vital Signs - 24 hr 03/28/17 03/28/17 03/28/17 19:00 21:00 22:00 Temperature 99.7 F H 99.2 F Pulse Rate 78 80 Respiratory 18 18 Rate Blood Pressure 143/66 130/63 O2 Sat by Pulse 94 L Oximetry (%) 03/29/17 03/29/17 03/29/17 06:00 10:39 11:34 Temperature 97.7 F 100.2 F H Pulse Rate 78 86 84 Respiratory 20 32 H 32 H Rate Blood Pressure 155/62 154/65 143/61 O2 Sat by Pulse Oximetry (%) 03/29/17 03/29/17 11:48 13:45 Temperature 100.5 F H Pulse Rate 84 84 Respiratory 32 H 28 H Rate Blood Pressure 151/66 143/59 O2 Sat by Pulse Oximetry (%) Intake & Output 03/27/17 03/28/17 03/29/17 03/30/17 07:59 07:59 07:59 07:59 Intake Total 1650 3950 1600 780 Balance 1650 3950 1600 780 Weight 169 lb 9.449 oz 195 lb 7 oz nad, conversational dyspnea jvd elevated, neck supple diffuse wheezes, nl effort rrr nl s1, s2 no mrg + bs soft mildly tender, nd, obese 1+ le edema with venous stasis changes no cyanosis, clubbing no jaundice, diaphoresis aaox3 CBC, BMP 03/29/17 16:55 03/29/17 16:55 Laboratory Tests 03/29/17 16:55 Total Bilirubin 0.5 AST 14 L D ALT 22 D Alkaline Phosphatase 191 H Creatine Kinase 45 Troponin I 0.52 H Albumin 3.1 L EKG: nsr, bline prolonged av delay. no ischemic changes. Echo 10/2015: tds. 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 hypoxia/diastolic chf - worsened hypoxia likely related to pulmonary edema in setting of recent IV fluids, 40 IV lasix now along with potassium repletion. - Patient refusing face mask which normalizes oxygen saturation. Per nursing, discussed with respiratory therapy. High flow nasal cannula not available. However on evaluation by respiratory therapy, oxygen saturation had come up above 90. Patient easily agitated and desaturates with minimal movement or agitation. Will do minimal interventions overnight to prevent agitation, including limiting blood draws, to optimize oxygenation. - last office weight 181 lbs. monitor daily weights, bmp. con't 40 iv lasix bid for now. - unclear whether patient has underlying pulmonary disease, she states she is on chronic O2. LE edema/venous insufficiency - diuresis as above. CAD s/p PCI - bline elevated troponin in setting of hypoxia, respiratory distress. Will plan on repeat troponin tomorrow am as patient is dnr/dni now and there will be no change in management from overnight draws and the risk of worsening hypoxia due to agitation from blood draw is high (see above discussion). - con't medical management for known cad. resume asa, brilinta (will confirm she remains on dapt), statin. - lyte repletion. - EKG without ischemic changes. no anginal symptoms - repeat echo tomorrow HTN - bp overall controlled for age off of anti-hypertensives. con't to monitor hl - statin as above. Will defer transfer to telemetry since patient has been made dnr/dni, oxygenation is improving and patient is asx from perspective of acs. will reevaluate need for transfer again tomorrow.
[2017-03-29] MEDS ORDERED: POTASSIUM CHLORIDE ORAL LIQUID 20 MEQ/15 ML PO ONE (21:30)
[2017-03-29] MEDS: NYSTATIN POWDER 100,000 UNITS/GM - 15 GM TOPICAL POWDER TP SCH (21:53)
[2017-03-29] MEDS: KCL 10 MEQ IVPB 100 ML IVPB SCH ×2 (21:53→22:49)
[2017-03-30] MEDS: FUROSEMIDE 40 MG/4 ML INJECTABLE VIAL IVPUSH SCH ×2 (06:19→14:58)
[2017-03-30] MEDS: PANTOPRAZOLE SODIUM 100 ML IVPB SCH (09:38)
[2017-03-30 10:57] LABS: ANION GAP 8 (8-16); BILIRUBIN,TOTAL 0.7 mg/dL (0.2-1.0); CALCIUM 8.3 mg/dL (8.5-10.1); CO2 30 mmol/L (21-32); CREATININE 0.9 mg/dL (0.55-1.02); GLUCOSE,RANDOM 223 mg/dL (74-106); SGOT/AST 12 U/L (15-37); SGPT/ALT 19 U/L (12-78); TOT PROT 6.1 g/dl (6.4-8.2)
[2017-03-30 11:09] LABS: ALK PHOS 173 U/L (45-117); CPK 46 IU/L (26-192)
[2017-03-30] MEDS: NYSTATIN POWDER 100,000 UNITS/GM - 15 GM TOPICAL POWDER TP SCH ×2 (11:15→22:21)
[2017-03-30] MEDS: POTASSIUM CHLORIDE TABS 20 MEQ TABLET.ER (FP) PO SCH ×2 (11:16→22:20)
[2017-03-30 11:18] LABS: TROPONIN I 0.72 ng/ml (0.00-0.05)
[2017-03-30] MEDS ORDERED: POTASSIUM CHLORIDE TABS 20 MEQ TABLET.ER (FP) PO ONE (12:15)
[2017-03-30] MEDS: ASPIRIN 81 MG CHEWABLE TABLETS PO SCH (12:35)
[2017-03-30] MEDS ORDERED: PT OWN MED DRAWER 7, Y5N ONE ×2 (12:58→21:33)
--- NOTE | 2017-03-30 16:31 | PN ---
Progress Note, Physician History of Present Illness: events noted patient was hypoxic and rapid response was activated patient currently stable - Current Medication List Current Medications: Active Medications Acetaminophen (Tylenol -) 650 mg PO Q6H PRN PRN Reason: FEVER OR PAIN Last Admin: 03/29/17 16:30 Dose: 650 mg Aspirin (Asa -) 81 mg PO DAILY [facility] Last Admin: 03/30/17 12:35 Dose: 81 mg Atorvastatin Calcium (Lipitor -) 40 mg PO HS [facility] Furosemide (Lasix Injection -) 40 mg IVPUSH BIDLASIX [facility] Last Admin: 03/30/17 14:58 Dose: 40 mg Pantoprazole Sodium (Protonix 40mg Ivpb (Pre-Docked)) 100 mls @ 200 mls/hr IVPB DAILY [facility] Last Admin: 03/30/17 09:38 Dose: 200 mls/hr Potassium Chloride (Potassium Chloride 10 Meq Premix Ivpb -) 100 mls @ 100 mls/ hr IVPB ASDIR [facility] Stop: 03/30/17 22:29 Last Admin: 03/29/17 22:49 Dose: 100 mls/hr Ketorolac Tromethamine (Toradol Injection -) 15 mg IVPUSH Q6H PRN PRN Reason: PAIN Stop: 04/03/17 15:27 Nystatin (Nystop Powder -) 1 applic TP BID [facility] Last Admin: 03/30/17 11:15 Dose: 1 applic Potassium Chloride (K-Dur -) 40 meq PO BID [facility] Last Admin: 03/30/17 11:16 Dose: 40 meq Ticagrelor (Brilinta) 60 mg PO BID [facility] - Objective Vital Signs: Vital Signs Temperature 97.4 F L 03/30/17 14:32 Pulse Rate 67 03/30/17 14:32 Respiratory Rate 20 03/30/17 14:32 Blood Pressure 133/60 03/30/17 14:32 O2 Sat by Pulse Oximetry (%) 93 L 03/29/17 22:15 Constitutional: Yes: Calm Cardiovascular: Yes: Regular Rate and Rhythm, Tachycardia Respiratory: Yes: On Venti-Mask, Rhonchi, Wheezes Gastrointestinal: Yes: Normal Bowel Sounds, Soft Musculoskeletal: Yes: WNL Extremities: Yes: WNL Neurological: Yes: Alert, Oriented Psychiatric: Yes: Alert, Oriented Labs: CBC, BMP 03/29/17 16:55 03/30/17 09:35 INR, PTT INR 0.99 (0.82-1.09) 03/26/17 06:54 Assessment/Plan dirrhoea abd pain gm positive bacteremia weakness resp failure hypoxia plan no abx at this time await for all results await for cardio resp support rest as per primary
--- NOTE | 2017-03-30 16:40 | PN ---
Progress Note, Physician History of Present Illness: patient looking much better no complaints some upper abd pain on nasal o2 says she is doing good had a bm - Current Medication List Current Medications: Active Medications Acetaminophen (Tylenol -) 650 mg PO Q6H PRN PRN Reason: FEVER OR PAIN Last Admin: 03/29/17 16:30 Dose: 650 mg Aspirin (Asa -) 81 mg PO DAILY [facility] Last Admin: 03/30/17 12:35 Dose: 81 mg Atorvastatin Calcium (Lipitor -) 40 mg PO HS [facility] Furosemide (Lasix Injection -) 40 mg IVPUSH BIDLASIX [facility] Last Admin: 03/30/17 14:58 Dose: 40 mg Pantoprazole Sodium (Protonix 40mg Ivpb (Pre-Docked)) 100 mls @ 200 mls/hr IVPB DAILY [facility] Last Admin: 03/30/17 09:38 Dose: 200 mls/hr Potassium Chloride (Potassium Chloride 10 Meq Premix Ivpb -) 100 mls @ 100 mls/ hr IVPB ASDIR [facility] Stop: 03/30/17 22:29 Last Admin: 03/29/17 22:49 Dose: 100 mls/hr Ketorolac Tromethamine (Toradol Injection -) 15 mg IVPUSH Q6H PRN PRN Reason: PAIN Stop: 04/03/17 15:27 Nystatin (Nystop Powder -) 1 applic TP BID [facility] Last Admin: 03/30/17 11:15 Dose: 1 applic Potassium Chloride (K-Dur -) 40 meq PO BID [facility] Last Admin: 03/30/17 11:16 Dose: 40 meq Ticagrelor (Brilinta) 60 mg PO BID [facility] - Objective Vital Signs: Vital Signs Temperature 97.4 F L 03/30/17 14:32 Pulse Rate 67 03/30/17 14:32 Respiratory Rate 20 03/30/17 14:32 Blood Pressure 133/60 03/30/17 14:32 O2 Sat by Pulse Oximetry (%) 93 L 03/29/17 22:15 Constitutional: Yes: No Distress, Calm Cardiovascular: Yes: Regular Rate and Rhythm, S1, S2 Respiratory: Yes: Regular, On Nasal O2, Poor Air Entry Gastrointestinal: Yes: Normal Bowel Sounds, Soft Musculoskeletal: Yes: WNL Extremities: Yes: WNL Neurological: Yes: Alert, Oriented Psychiatric: Yes: Alert, Oriented Labs: CBC, BMP 03/29/17 16:55 03/30/17 09:35 INR, PTT INR 0.99 (0.82-1.09) 03/26/17 06:54 Assessment/Plan dirrhoea abd pain gm positive bacteremia weakness resp failure hypoxia plan continue to monitor no abx close watch rest as per primary and cardio
--- NOTE | 2017-03-30 17:43 | PN ---
Progress Note (short form) - Note Progress Note: CC: hypoxia/elevated troponins S: patient remained without chest discomfort overnight. breathing improved and oxygen saturations have improved (saturations now normal with lower oxygen requirement.). no palps, dizziness. abdominal discomfort remains the same per patient, but may be improved per family report. Current Medications Acetaminophen (Tylenol -) 650 mg PO Q6H PRN PRN Reason: FEVER OR PAIN Last Admin: 03/29/17 16:30 Dose: 650 mg Aspirin (Asa -) 81 mg PO DAILY [facility] Last Admin: 03/30/17 12:35 Dose: 81 mg Atorvastatin Calcium (Lipitor -) 40 mg PO HS [facility] Furosemide (Lasix Injection -) 40 mg IVPUSH BIDLASIX [facility] Last Admin: 03/30/17 14:58 Dose: 40 mg Potassium Chloride (Potassium Chloride 10 Meq Premix Ivpb -) 100 mls @ 100 mls/ hr IVPB ASDIR [facility] Stop: 03/30/17 22:29 Last Admin: 03/29/17 22:49 Dose: 100 mls/hr Ketorolac Tromethamine (Toradol Injection -) 15 mg IVPUSH Q6H PRN PRN Reason: PAIN Stop: 04/03/17 15:27 Nystatin (Nystop Powder -) 1 applic TP BID [facility] Last Admin: 03/30/17 11:15 Dose: 1 applic Pantoprazole Sodium (Protonix -) 40 mg PO DAILY [facility] Potassium Chloride (K-Dur -) 40 meq PO BID [facility] Last Admin: 03/30/17 11:16 Dose: 40 meq Ticagrelor (Brilinta) 60 mg PO BID [facility] Vital Signs - 24 hr 03/29/17 03/29/17 03/29/17 18:00 18:58 21:00 Temperature 99.0 F Pulse Rate 75 70 Respiratory 20 28 H 28 H Rate Blood Pressure 123/44 133/50 O2 Sat by Pulse 93 L Oximetry (%) 03/29/17 03/29/17 03/30/17 22:00 22:15 02:00 Temperature 99.6 F Pulse Rate 82 92 H 73 Respiratory 28 H 20 Rate Blood Pressure 139/77 147/76 O2 Sat by Pulse 93 L Oximetry (%) 03/30/17 03/30/17 06:00 14:32 Temperature 100.3 F H 97.4 F L Pulse Rate 80 67 Respiratory 20 20 Rate Blood Pressure 129/60 133/60 O2 Sat by Pulse Oximetry (%) Intake & Output 03/28/17 03/29/17 03/30/17 03/31/17 07:59 07:59 07:59 07:59 Intake Total 3950 1600 1445 750 Balance 3950 1600 1445 750 Weight 195 lb 7 oz 189 lb 5 oz nad, conversational dyspnea jvd elevated, neck supple diffuse wheezes, nl effort rrr nl s1, s2 no mrg + bs soft mildly tender, nd, obese 1+ le edema with venous stasis changes no cyanosis, clubbing no jaundice, diaphoresis aaox3 CBC, BMP 03/29/17 16:55 03/30/17 09:35 Laboratory Tests 03/30/17 09:35 Total Bilirubin 0.7 D ALT 19 Alkaline Phosphatase 173 H Creatine Kinase 46 Troponin I 0.72 H* Albumin 3.0 L EKG: nsr, bline prolonged av delay. no ischemic changes. Echo 03/2017: tds. grossly nl lv. can't exclude rwma. mild-mod dilated RV with mildly reduced function. mild-mod mac. 1+ mr. mild-mod tr. rvsp 30-40. Echo 10/2015: tds. 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 hypoxia/diastolic chf/rv dysfunction - worsened hypoxia likely related to pulmonary edema in setting of recent IV fluids. Patient refused face mask and had persistent oxygen saturations in the 80's. Was made dnr/dni. oxygenation improved with lasix. - last office weight 181 lbs. monitor daily weights, bmp. con't 40 iv lasix bid for now. - unclear whether patient has underlying pulmonary disease, she states she is on chronic O2. Spoke with hcp and he states she has been on oxygen for one year , unclear etiology of hypoxia. - 03/30: oxygenation significantly improved/decreased o2 requirement. per nursing /palliative care notes, dnr/dni being reversed. echo with RV dysfunction, con' t diuresis. daily weights, bmp. LE edema/venous insufficiency - diuresis as above. CAD s/p PCI - bline elevated troponin in setting of hypoxia, respiratory distress 03/29. Ekg without ischemic changes. Repeat troponin slightly higher, but overall trend is flat. Will con't to trend until peak. Low suspicion for ACS. - con't medical management for known cad. resumed asa, brilinta (hcp states she was on 60 mg bid dosing), statin. - lyte repletion. - EKG without ischemic changes. no anginal symptoms - repeat echo tds but grossly nl lv function. RV function decreased. Will need reevaluation of RV once pulmonary status improves. If patient amenable, consider need for ischemic evaluation once pulmonary status stabilizes if in line with goals of care. Currently goc unclear, patient initially requested to be dnr/dni, but now reversing. HTN - bp overall controlled for age off of anti-hypertensives. con't to monitor hl - statin as above. nausea/diarrhea/abdominal pain - low suspicion for hepatic congestion since lft's are overall normal. (per gi notes patient with long-standing elevation in alk phos). Additionally no signs of gut edema or ascites on ct per report. However, patient with rv dysfunction , will evaluate for improvement in symptoms with ongoing diuresis. - ongoing mgm't per gi/pmd
[2017-03-30] MEDS: TICAGRELOR 60 MG TABLET PO SCH ×2 (18:29→22:19)
[2017-03-30 18:43] LABS: TROPONIN I 0.59 ng/ml (0.00-0.05)
--- NOTE | 2017-03-30 19:54 | PN ---
Progress Note, Physician Chief Complaint: doing well History of Present Illness: c/o bloating and discomfort in the belly - Current Medication List Current Medications: Active Medications Acetaminophen (Tylenol -) 650 mg PO Q6H PRN PRN Reason: FEVER OR PAIN Last Admin: 03/29/17 16:30 Dose: 650 mg Aspirin (Asa -) 81 mg PO DAILY [facility] Last Admin: 03/30/17 12:35 Dose: 81 mg Atorvastatin Calcium (Lipitor -) 40 mg PO HS [facility] Furosemide (Lasix Injection -) 40 mg IVPUSH BIDLASIX [facility] Last Admin: 03/30/17 14:58 Dose: 40 mg Ketorolac Tromethamine (Toradol Injection -) 15 mg IVPUSH Q6H PRN PRN Reason: PAIN Stop: 04/03/17 15:27 Nystatin (Nystop Powder -) 1 applic TP BID [facility] Last Admin: 03/30/17 11:15 Dose: 1 applic Pantoprazole Sodium (Protonix -) 40 mg PO DAILY [facility] Potassium Chloride (K-Dur -) 40 meq PO BID [facility] Last Admin: 03/30/17 11:16 Dose: 40 meq Ticagrelor (Brilinta) 60 mg PO BID [facility] Last Admin: 03/30/17 18:29 Dose: 60 mg - Objective Vital Signs: Vital Signs Temperature 98.4 F 03/30/17 18:00 Pulse Rate 74 03/30/17 19:00 Respiratory Rate 20 03/30/17 18:00 Blood Pressure 121/63 03/30/17 18:00 O2 Sat by Pulse Oximetry (%) 96 03/30/17 19:00 Constitutional: Yes: No Distress HENT: Yes: Atraumatic Neck: Yes: Supple Cardiovascular: Yes: Regular Rate and Rhythm Respiratory: Yes: CTA Bilaterally, Rhonchi Gastrointestinal: Yes: Normal Bowel Sounds Extremities: Yes: WNL Edema: Yes Neurological: Yes: Alert, Oriented Labs: CBC, BMP 03/29/17 16:55 03/30/17 09:35 INR, PTT INR 0.99 (0.82-1.09) 03/26/17 06:54 Problem List - Problems (1) Abdominal pain Assessment/Plan: on and off prn pain meds on regular diet gi fu Code(s): R10.9 - UNSPECIFIED ABDOMINAL PAIN Qualifiers: Qualified Code(s): R10.84 - Generalized abdominal pain (2) Vomiting and diarrhea Assessment/Plan: resolved Code(s): R11.10 - VOMITING, UNSPECIFIED R19.7 - DIARRHEA, UNSPECIFIED Assessment/Plan
[2017-03-30] MEDS: ATORVASTATIN CA 40 MG TABLET (FP) PO SCH (22:20)
[2017-03-31] MEDS: FUROSEMIDE 40 MG/4 ML INJECTABLE VIAL IVPUSH SCH ×2 (05:57→15:00)
[2017-03-31 07:26] LABS: ANION GAP 11 (8-16); CALCIUM 8.4 mg/dL (8.5-10.1); CO2 29 mmol/L (21-32); CREATININE 0.8 mg/dL (0.55-1.02); GLUCOSE,RANDOM 187 mg/dL (74-106)
[2017-03-31] MEDS ORDERED: PT OWN MED DRAWER 7, Y5N ONE ×2 (10:27→21:38)
[2017-03-31] MEDS: POTASSIUM CHLORIDE TABS 20 MEQ TABLET.ER (FP) PO SCH ×2 (10:29→22:03)
[2017-03-31] MEDS: PANTOPRAZOLE 40 MG TABLET (FP) PO SCH (10:29)
[2017-03-31] MEDS: TICAGRELOR 60 MG TABLET PO SCH ×2 (10:30→22:03)
[2017-03-31] MEDS: ASPIRIN 81 MG CHEWABLE TABLETS PO SCH (10:30)
[2017-03-31] MEDS: NYSTATIN POWDER 100,000 UNITS/GM - 15 GM TOPICAL POWDER TP SCH ×2 (10:30→22:04)
--- NOTE | 2017-03-31 12:21 | PN ---
Progress Note, Physician Chief Complaint: Infectious Disease History of Present Illness: Pt alert, feels generally well Discomfort only in epigastric area No recent diarrhea, Afebrile - Current Medication List Current Medications: Active Medications Acetaminophen (Tylenol -) 650 mg PO Q6H PRN PRN Reason: FEVER OR PAIN Last Admin: 03/29/17 16:30 Dose: 650 mg Aspirin (Asa -) 81 mg PO DAILY [facility] Last Admin: 03/31/17 10:30 Dose: 81 mg Atorvastatin Calcium (Lipitor -) 40 mg PO HS [facility] Last Admin: 03/30/17 22:20 Dose: 40 mg Furosemide (Lasix Injection -) 40 mg IVPUSH BIDLASIX [facility] Last Admin: 03/31/17 05:57 Dose: 40 mg Ketorolac Tromethamine (Toradol Injection -) 15 mg IVPUSH Q6H PRN PRN Reason: PAIN Stop: 04/03/17 15:27 Nystatin (Nystop Powder -) 1 applic TP BID [facility] Last Admin: 03/31/17 10:30 Dose: 1 applic Pantoprazole Sodium (Protonix -) 40 mg PO DAILY [facility] Last Admin: 03/31/17 10:29 Dose: 40 mg Potassium Chloride (K-Dur -) 40 meq PO BID [facility] Last Admin: 03/31/17 10:29 Dose: 40 meq Ticagrelor (Brilinta) 60 mg PO BID [facility] Last Admin: 03/31/17 10:30 Dose: 60 mg - Objective Vital Signs: Vital Signs Temperature 97.9 F 03/31/17 10:00 Pulse Rate 62 03/31/17 10:00 Respiratory Rate 20 03/31/17 10:00 Blood Pressure 136/65 03/31/17 10:00 O2 Sat by Pulse Oximetry (%) 94 L 03/31/17 06:22 Constitutional: Yes: No Distress Respiratory: Yes: Regular Gastrointestinal: Yes: Normal Bowel Sounds, Soft, Tenderness (epigastric with deep palpation) Genitourinary: Yes: WNL Musculoskeletal: Yes: WNL Extremities: Yes: WNL Integumentary: Yes: WNL Neurological: Yes: Alert Psychiatric: Yes: WNL Labs: CBC, BMP 03/29/17 16:55 03/31/17 06:00 INR, PTT INR 0.99 (0.82-1.09) 03/26/17 06:54 Microbiology 03/26/17 06:56 Blood - Peripheral Venous Blood Culture - Final NO GROWTH AFTER 5 DAYS INCUBATION 03/28/17 19:30 Blood - Peripheral Venous Blood Culture - Preliminary NO GROWTH OBTAINED AFTER 48 HOURS, INCUBATION TO CONTINUE FOR 3 DAYS. 03/28/17 19:30 Blood - Peripheral Venous Blood Culture - Preliminary NO GROWTH OBTAINED AFTER 48 HOURS, INCUBATION TO CONTINUE FOR 3 DAYS. 03/26/17 06:50 Blood - Peripheral Venous Blood Culture - Final Staph Capitis Subsp Capitis 03/26/17 13:00 Stool Salmonella/Shigella Culture - Final 03/26/17 13:00 Stool Campylobacter Culture - Final NO GROWTH OF CAMPYLOBACTER SPECIES OBTAINED 03/26/17 13:00 Stool Yersinia Culture - Final NO GROWTH OF YERSINIA SPECIES OBTAINED 03/26/17 13:00 Stool Vibrio Culture - Final NO GROWTH OF VIBRIO SPECIES OBTAINED 03/26/17 13:00 Stool Escherichia coli 0157 Culture - Final NO GROWTH OF E COLI 0157 OBTAINED 03/26/17 11:59 Urine - Urine Clean Catch Urine Culture - Final NO GROWTH OBTAINED 03/26/17 11:59 Stool Clostridium difficile Antigen (NICK) - Final 03/26/17 11:59 Stool Clostridium difficile Toxin Assay - Final Assessment/Plan abd pain/diarrhea - resolving resp failure hypoxia continue monitor off antibiotics cultures negative pt afebrile today cont f/u with cardiology
--- NOTE | 2017-03-31 16:03 | PN ---
Progress Note, Physician History of Present Illness: c/o bloating and discomfort in the belly - Current Medication List Current Medications: Active Medications Acetaminophen (Tylenol -) 650 mg PO Q6H PRN PRN Reason: FEVER OR PAIN Last Admin: 03/29/17 16:30 Dose: 650 mg Aspirin (Asa -) 81 mg PO DAILY [facility] Last Admin: 03/31/17 10:30 Dose: 81 mg Atorvastatin Calcium (Lipitor -) 40 mg PO HS [facility] Last Admin: 03/30/17 22:20 Dose: 40 mg Furosemide (Lasix Injection -) 40 mg IVPUSH BIDLASIX [facility] Last Admin: 03/31/17 15:00 Dose: 40 mg Ketorolac Tromethamine (Toradol Injection -) 15 mg IVPUSH Q6H PRN PRN Reason: PAIN Stop: 04/03/17 15:27 Nystatin (Nystop Powder -) 1 applic TP BID [facility] Last Admin: 03/31/17 10:30 Dose: 1 applic Pantoprazole Sodium (Protonix -) 40 mg PO DAILY [facility] Last Admin: 03/31/17 10:29 Dose: 40 mg Potassium Chloride (K-Dur -) 40 meq PO BID [facility] Last Admin: 03/31/17 10:29 Dose: 40 meq Ticagrelor (Brilinta) 60 mg PO BID [facility] Last Admin: 03/31/17 10:30 Dose: 60 mg - Objective Vital Signs: Vital Signs Temperature 99.3 F 03/31/17 14:56 Pulse Rate 67 03/31/17 14:56 Respiratory Rate 22 03/31/17 14:56 Blood Pressure 149/62 03/31/17 14:56 O2 Sat by Pulse Oximetry (%) 94 L 03/31/17 06:22 Constitutional: Yes: Anxious HENT: Yes: Atraumatic Neck: Yes: Supple Cardiovascular: Yes: Regular Rate and Rhythm Respiratory: Yes: CTA Bilaterally Gastrointestinal: Yes: Normal Bowel Sounds Extremities: Yes: WNL Neurological: Yes: Alert, Oriented Labs: CBC, BMP 03/29/17 16:55 03/31/17 06:00 INR, PTT INR 0.99 (0.82-1.09) 03/26/17 06:54 Problem List - Problems (1) Abdominal pain Assessment/Plan: prn pain meds on regular diet gi fu Code(s): R10.9 - UNSPECIFIED ABDOMINAL PAIN Qualifiers: Qualified Code(s): R10.84 - Generalized abdominal pain (2) Vomiting and diarrhea Assessment/Plan: resolved Code(s): R11.10 - VOMITING, UNSPECIFIED R19.7 - DIARRHEA, UNSPECIFIED
[2017-03-31] MEDS: ATORVASTATIN CA 40 MG TABLET (FP) PO SCH (22:03)
[2017-03-31] MEDS: INSULIN DETEMIR 100 UNITS/ML MDV SQ SCH (23:55)
[2017-04-01] MEDS: FUROSEMIDE 40 MG/4 ML INJECTABLE VIAL IVPUSH SCH ×2 (06:17→15:51)
[2017-04-01 09:23] LABS: ANION GAP 8 (8-16); CALCIUM 9.6 mg/dL (8.5-10.1); CO2 29 mmol/L (21-32); CREATININE 1.1 mg/dL (0.55-1.02); GLUCOSE,RANDOM 215 mg/dL (74-106)
[2017-04-01] MEDS: POTASSIUM CHLORIDE TABS 20 MEQ TABLET.ER (FP) PO SCH ×2 (10:12→21:01)
[2017-04-01] MEDS: ASPIRIN 81 MG CHEWABLE TABLETS PO SCH (10:12)
[2017-04-01] MEDS: ACETAMINOPHEN 325 MG TABLET (FP) PO PRN (10:12)
[2017-04-01] MEDS: PANTOPRAZOLE 40 MG TABLET (FP) PO SCH (10:12)
[2017-04-01] MEDS: TICAGRELOR 60 MG TABLET PO SCH ×2 (10:14→21:01)
[2017-04-01] MEDS: NYSTATIN POWDER 100,000 UNITS/GM - 15 GM TOPICAL POWDER TP SCH ×2 (10:19→21:02)
[2017-04-01] MEDS ORDERED: INSULIN (NOVOLOG) ASPART 100 UNITS/ML 10ML VIAL SQ ONE (12:45)
[2017-04-01] MEDS: INSULIN DETEMIR 100 UNITS/ML MDV SQ SCH (17:16)
--- NOTE | 2017-04-01 17:53 | PN ---
GI Progress Note Subjective: Patient still c/o abdominal pain and bloating - Objective Vital Signs: Vital Signs Temperature 98.2 F 04/01/17 15:12 Pulse Rate 64 04/01/17 14:40 Respiratory Rate 18 04/01/17 14:40 Blood Pressure 118/57 04/01/17 14:40 O2 Sat by Pulse Oximetry (%) 96 04/01/17 07:00 Constitutional: Anxious, Mild Distress Eyes: Yes: Conjunctiva Clear HENT: Yes: Normocephalic Cardiovascular: Yes: Regular Rate and Rhythm Respiratory: Yes: CTA Bilaterally Gastrointestinal Inspection: Yes: Distention ...Auscultate: Yes: Normoactive Bowel Sounds ...Palpate: Yes: Soft (softly distended) ...Percussion: Yes: Tympanitic Psychiatric: Yes: Alert Labs: CBC, BMP 03/29/17 16:55 04/01/17 07:50 INR, PTT INR 0.99 (0.82-1.09) 03/26/17 06:54 Hepatic Panel Hepatic Function Panel 64 % (18-85) 03/26/17 18:45 Total Bilirubin 0.7 mg/dL (0.2-1.0) D 03/30/17 09:35 AST 12 U/L (15-37) L 03/30/17 09:35 ALT 19 U/L (12-78) 03/30/17 09:35 Alkaline Phosphatase 173 U/L (45-117) H 03/30/17 09:35 Albumin 3.0 g/dl (3.4-5.0) L 03/30/17 09:35 Abnormal Lab Results 04/01/17 07:50 Creatinine 1.1 H D Random Glucose 215 H Assessment/Plan Patient with ongoing distention and discomfort No real tenderness on exam Rec: Admitted with diarrhea Normal BM easrlier today Will get KUB tomorrow and re-assess She is distended Will start creon
[2017-04-01] MEDS ORDERED: INSULIN DETEMIR 100 UNITS/ML MDV SQ SCH (18:00)
[2017-04-01] MEDS ORDERED: INSULIN (NOVOLOG) ASPART 100 UNITS/ML 10ML VIAL ONE (18:05)
[2017-04-01] MEDS ORDERED: INSULIN DETEMIR 100 UNITS/ML MDV SQ ONE (18:05)
--- NOTE | 2017-04-01 18:23 | PN ---
Progress Note, Physician History of Present Illness: Pt alert, without distress c/o of same epigastric pain but no nausea/vomiting, BMs solid Eating dinner, conversive - Current Medication List Current Medications: Active Medications Acetaminophen (Tylenol -) 650 mg PO Q6H PRN PRN Reason: FEVER OR PAIN Last Admin: 04/01/17 10:12 Dose: 650 mg Aspirin (Asa -) 81 mg PO DAILY [facility] Last Admin: 04/01/17 10:12 Dose: 81 mg Atorvastatin Calcium (Lipitor -) 40 mg PO HS [facility] Last Admin: 03/31/17 22:03 Dose: 40 mg Furosemide (Lasix Injection -) 40 mg IVPUSH BIDLASIX [facility] Last Admin: 04/01/17 15:51 Dose: 40 mg Insulin Detemir (Levemir Vial) 35 units SQ DAILY@1700 [facility] Last Admin: 04/01/17 17:16 Dose: 35 units Ketorolac Tromethamine (Toradol Injection -) 15 mg IVPUSH Q6H PRN PRN Reason: PAIN Stop: 04/03/17 15:27 Nystatin (Nystop Powder -) 1 applic TP BID [facility] Last Admin: 04/01/17 10:19 Dose: 1 applic Pancrelipase (Creon Dr 36,000 Units Capsule) 1 cap PO TIDCM [facility] Pantoprazole Sodium (Protonix -) 40 mg PO DAILY [facility] Last Admin: 04/01/17 10:12 Dose: 40 mg Potassium Chloride (K-Dur -) 40 meq PO BID [facility] Last Admin: 04/01/17 10:12 Dose: 40 meq Ticagrelor (Brilinta) 60 mg PO BID [facility] Last Admin: 04/01/17 10:14 Dose: 60 mg - Objective Vital Signs: Vital Signs Temperature 98.2 F 04/01/17 15:12 Pulse Rate 64 04/01/17 14:40 Respiratory Rate 18 04/01/17 14:40 Blood Pressure 118/57 04/01/17 14:40 O2 Sat by Pulse Oximetry (%) 96 04/01/17 07:00 Constitutional: Yes: No Distress Cardiovascular: Yes: Regular Rate and Rhythm Respiratory: Yes: WNL Gastrointestinal: Yes: Distention (mild, no guarding), Other (epigastric tenderness with deep palpation, +BS in all 4 quadrants) Genitourinary: Yes: WNL Neurological: Yes: Alert Labs: CBC, BMP 03/29/17 16:55 04/01/17 07:50 INR, PTT INR 0.99 (0.82-1.09) 03/26/17 06:54 Assessment/Plan Abdominal Pain diarrhea resolved Pt remains afebrile KUB to be done tomorrow cont monitor off antibx
[2017-04-01] MEDS: LIPASE/PROTEASE/AMYLASE 36,000 UNIT CAPSULE PO SCH (19:00)
[2017-04-01] MEDS ORDERED: PT OWN MED DRAWER 7, Y5N ONE (20:30)
[2017-04-01] MEDS: ATORVASTATIN CA 40 MG TABLET (FP) PO SCH (21:02)
--- NOTE | 2017-04-01 21:41 | PN ---
Progress Note, Physician History of Present Illness: doing well - Current Medication List Current Medications: Active Medications Acetaminophen (Tylenol -) 650 mg PO Q6H PRN PRN Reason: FEVER OR PAIN Last Admin: 04/01/17 10:12 Dose: 650 mg Aspirin (Asa -) 81 mg PO DAILY [facility] Last Admin: 04/01/17 10:12 Dose: 81 mg Atorvastatin Calcium (Lipitor -) 40 mg PO HS [facility] Last Admin: 04/01/17 21:02 Dose: 40 mg Furosemide (Lasix Injection -) 40 mg IVPUSH BIDLASIX [facility] Last Admin: 04/01/17 15:51 Dose: 40 mg Insulin Detemir (Levemir Vial) 35 units SQ DAILY@1700 [facility] Last Admin: 04/01/17 17:16 Dose: 35 units Ketorolac Tromethamine (Toradol Injection -) 15 mg IVPUSH Q6H PRN PRN Reason: PAIN Stop: 04/03/17 15:27 Nystatin (Nystop Powder -) 1 applic TP BID [facility] Last Admin: 04/01/17 21:02 Dose: 1 applic Pancrelipase (Creon Dr 36,000 Units Capsule) 1 cap PO TIDCM [facility] Last Admin: 04/01/17 19:00 Dose: Not Given Pantoprazole Sodium (Protonix -) 40 mg PO DAILY [facility] Last Admin: 04/01/17 10:12 Dose: 40 mg Potassium Chloride (K-Dur -) 40 meq PO BID [facility] Last Admin: 04/01/17 21:01 Dose: 40 meq Ticagrelor (Brilinta) 60 mg PO BID [facility] Last Admin: 04/01/17 21:01 Dose: 60 mg - Objective Vital Signs: Vital Signs Temperature 99.0 F 04/01/17 18:00 Pulse Rate 66 04/01/17 18:00 Respiratory Rate 18 04/01/17 18:00 Blood Pressure 124/71 04/01/17 18:00 O2 Sat by Pulse Oximetry (%) 98 04/01/17 09:00 Constitutional: Yes: No Distress HENT: Yes: Atraumatic Neck: Yes: Supple Cardiovascular: Yes: Regular Rate and Rhythm Respiratory: Yes: CTA Bilaterally Gastrointestinal: Yes: Normal Bowel Sounds Extremities: Yes: WNL Neurological: Yes: Alert, Oriented Labs: CBC, BMP 03/29/17 16:55 04/01/17 07:50 INR, PTT INR 0.99 (0.82-1.09) 03/26/17 06:54 Problem List - Problems (1) Abdominal pain Assessment/Plan: better c/o bloating ...some discomfort gi note reviewed Code(s): R10.9 - UNSPECIFIED ABDOMINAL PAIN Qualifiers: Qualified Code(s): R10.84 - Generalized abdominal pain (2) Vomiting and diarrhea Assessment/Plan: resolved Code(s): R11.10 - VOMITING, UNSPECIFIED R19.7 - DIARRHEA, UNSPECIFIED
[2017-04-02] MEDS: FUROSEMIDE 40 MG/4 ML INJECTABLE VIAL IVPUSH SCH ×2 (07:05→14:17)
[2017-04-02 08:03] LABS: ANION GAP 8 (8-16); CO2 30 mmol/L (21-32); CREATININE 1.2 mg/dL (0.55-1.02); GLUCOSE,RANDOM 192 mg/dL (74-106)
[2017-04-02] MEDS ORDERED: PT OWN MED DRAWER 7, Y5N ONE ×5 (08:31→20:13)
[2017-04-02] MEDS: LIPASE/PROTEASE/AMYLASE 36,000 UNIT CAPSULE PO SCH ×3 (08:35→17:37)
[2017-04-02] MEDS: PANTOPRAZOLE 40 MG TABLET (FP) PO SCH (09:42)
[2017-04-02] MEDS: ASPIRIN 81 MG CHEWABLE TABLETS PO SCH (09:42)
[2017-04-02] MEDS: TICAGRELOR 60 MG TABLET PO SCH ×2 (09:43→22:33)
[2017-04-02] MEDS: POTASSIUM CHLORIDE TABS 20 MEQ TABLET.ER (FP) PO SCH (09:45)
[2017-04-02] MEDS: NYSTATIN POWDER 100,000 UNITS/GM - 15 GM TOPICAL POWDER TP SCH ×2 (09:46→22:35)
--- NOTE | 2017-04-02 13:01 | PN ---
Progress Note, Physician History of Present Illness: stable still c/o of abd pain - Current Medication List Current Medications: Active Medications Acetaminophen (Tylenol -) 650 mg PO Q6H PRN PRN Reason: FEVER OR PAIN Last Admin: 04/01/17 10:12 Dose: 650 mg Aspirin (Asa -) 81 mg PO DAILY [facility] Last Admin: 04/02/17 09:42 Dose: 81 mg Atorvastatin Calcium (Lipitor -) 40 mg PO HS [facility] Last Admin: 04/01/17 21:02 Dose: 40 mg Furosemide (Lasix Injection -) 40 mg IVPUSH BIDLASIX [facility] Last Admin: 04/02/17 07:05 Dose: 40 mg Insulin Detemir (Levemir Vial) 35 units SQ DAILY@1700 [facility] Last Admin: 04/01/17 17:16 Dose: 35 units Ketorolac Tromethamine (Toradol Injection -) 15 mg IVPUSH Q6H PRN PRN Reason: PAIN Stop: 04/03/17 15:27 Nystatin (Nystop Powder -) 1 applic TP BID [facility] Last Admin: 04/02/17 09:46 Dose: 1 applic Pancrelipase (Creon Dr 36,000 Units Capsule) 1 cap PO TIDCM [facility] Last Admin: 04/02/17 12:21 Dose: 1 cap Pantoprazole Sodium (Protonix -) 40 mg PO DAILY [facility] Last Admin: 04/02/17 09:42 Dose: 40 mg Potassium Chloride (K-Dur -) 40 meq PO BID [facility] Last Admin: 04/02/17 09:45 Dose: 40 meq Ticagrelor (Brilinta) 60 mg PO BID [facility] Last Admin: 04/02/17 09:43 Dose: 60 mg - Objective Vital Signs: Vital Signs Temperature 98.2 F 04/02/17 10:00 Pulse Rate 69 04/02/17 10:36 Respiratory Rate 18 04/02/17 10:00 Blood Pressure 130/74 04/02/17 10:00 O2 Sat by Pulse Oximetry (%) 95 04/02/17 10:36 Constitutional: Yes: Calm, Mild Distress Cardiovascular: Yes: S1, S2 Respiratory: Yes: Regular, On Nasal O2 Gastrointestinal: Yes: Soft, Tenderness (epigatric) Musculoskeletal: Yes: WNL Extremities: Yes: WNL Neurological: Yes: Alert, Oriented Psychiatric: Yes: Alert Labs: CBC, BMP 03/29/17 16:55 04/02/17 07:15 INR, PTT INR 0.99 (0.82-1.09) 03/26/17 06:54 - ....Imaging X-ray: Report Reviewed, Image Reviewed Assessment/Plan dirrhoea abd pain gm positive bacteremia weakness resp failure hypoxia plan continue to monitor rest as per primary
[2017-04-02] MEDS ORDERED: INSULIN (NOVOLOG) ASPART 100 UNITS/ML 10ML VIAL ONE ×2 (17:30→17:57)
[2017-04-02] MEDS: INSULIN DETEMIR 100 UNITS/ML MDV SQ SCH (17:36)
[2017-04-02] MEDS ORDERED: INSULIN DETEMIR 100 UNITS/ML MDV SQ ONE (17:57)
--- NOTE | 2017-04-02 17:58 | PN ---
Progress Note (short form) - Note Progress Note: CC: hypoxia/elevated troponins S: no cp, palps, dizziness. sob at baseline. LE edema improved, still mild residual. Stopped lasix and potassium this afternoon. still with abdominal discomfort. Current Medications Acetaminophen (Tylenol -) 650 mg PO Q6H PRN PRN Reason: FEVER OR PAIN Last Admin: 04/01/17 10:12 Dose: 650 mg Aspirin (Asa -) 81 mg PO DAILY [facility] Last Admin: 04/02/17 09:42 Dose: 81 mg Atorvastatin Calcium (Lipitor -) 40 mg PO HS [facility] Last Admin: 04/01/17 21:02 Dose: 40 mg Insulin Detemir (Levemir Vial) 35 units SQ DAILY@1700 [facility] Last Admin: 04/02/17 17:36 Dose: 35 units Ketorolac Tromethamine (Toradol Injection -) 15 mg IVPUSH Q6H PRN PRN Reason: PAIN Stop: 04/03/17 15:27 Nystatin (Nystop Powder -) 1 applic TP BID [facility] Last Admin: 04/02/17 09:46 Dose: 1 applic Pancrelipase (Creon Dr 36,000 Units Capsule) 1 cap PO TIDCM [facility] Last Admin: 04/02/17 17:37 Dose: 1 cap Pantoprazole Sodium (Protonix -) 40 mg PO DAILY [facility] Last Admin: 04/02/17 09:42 Dose: 40 mg Ticagrelor (Brilinta) 60 mg PO BID [facility] Last Admin: 04/02/17 09:43 Dose: 60 mg Vital Signs - 24 hr 04/01/17 04/01/17 04/01/17 18:00 19:00 21:00 Temperature 99.0 F Pulse Rate 66 69 Respiratory 18 Rate Blood Pressure 124/71 O2 Sat by Pulse 96 96 Oximetry (%) 04/01/17 04/01/17 04/01/17 22:00 23:00 23:05 Temperature 97.7 F Pulse Rate 69 65 67 Respiratory 18 Rate Blood Pressure 116/48 O2 Sat by Pulse 96 91 L Oximetry (%) 04/02/17 04/02/17 04/02/17 03:00 06:00 07:00 Temperature 98.0 F Pulse Rate 65 71 66 Respiratory 18 Rate Blood Pressure 116/69 O2 Sat by Pulse 96 96 Oximetry (%) 08/03/1204/02/17 04/02/17 07:04 09:00 10:00 Temperature 98.2 F Pulse Rate 92 H 70 Respiratory 20 18 Rate Blood Pressure 130/74 O2 Sat by Pulse 98 96 Oximetry (%) 04/02/17 04/02/17 04/02/17 10:36 11:00 14:53 Temperature 99.4 F Pulse Rate 69 68 70 Respiratory 20 Rate Blood Pressure 139/74 O2 Sat by Pulse 95 97 Oximetry (%) 04/02/17 15:00 Temperature Pulse Rate 72 Respiratory Rate Blood Pressure O2 Sat by Pulse 95 Oximetry (%) Intake & Output 03/31/17 04/01/17 04/02/17 04/03/17 07:59 07:59 07:59 07:59 Intake Total 1400 1035 780 400 Balance 1400 1035 780 400 Weight 185 lb 9.6 oz 183 lb 5 oz 181 lb 3 oz nad, calm jvd flat, neck supple trace crackles, nl effort rrr nl s1, s2 no mrg + bs soft mildly tender, nd, obese trace le edema with venous stasis changes no cyanosis, clubbing no jaundice, diaphoresis aaox3 CBC, BMP 04/02/17 07:15 EKG: nsr, bline prolonged av delay. no ischemic changes. Echo 03/2017: tds. grossly nl lv. can't exclude rwma. mild-mod dilated RV with mildly reduced function. mild-mod mac. 1+ mr. mild-mod tr. rvsp 30-40. Echo 10/2015: tds. 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 hypoxia/diastolic chf/rv dysfunction - worsened hypoxia likely related to pulmonary edema in setting of recent IV fluids. Patient refused face mask and had persistent oxygen saturations in the 80's. Was made dnr/dni. oxygenation improved with lasix. - last office weight 181 lbs. monitor daily weights, bmp. con't 40 iv lasix bid for now. - unclear whether patient has underlying pulmonary disease, she states she is on chronic O2. Spoke with hcp and he states she has been on oxygen for one year , unclear etiology of hypoxia. - 03/30: oxygenation significantly improved/decreased o2 requirement. per nursing /palliative care notes, dnr/dni being reversed. echo with RV dysfunction, con' t diuresis. daily weights, bmp. - 04/02 s/p diuresis with lasix 40 mg IV BID. now with cr bump. will transition to po tomorrow or the day after depending on direction of creatinine. LE edema/venous insufficiency - improved, diuresis as above. CAD s/p PCI - bline elevated troponin in setting of hypoxia, respiratory distress 03/29. Ekg without ischemic changes. Repeat troponin slightly higher, but overall trend is flat. Will con't to trend until peak. Likely demand, low suspicion for ACS. - con't medical management for known cad. resumed asa, brilinta (hcp states she was on 60 mg bid dosing), statin. - lyte repletion. - EKG without ischemic changes. no anginal symptoms - repeat echo tds but grossly nl lv function. RV function decreased. Will need reevaluation of RV once pulmonary status improves. - patient amenable to ischemic workup and further invasive interventions if needed. no longer dnr/dni. will plan on stress testing. inpatient vs. outpatient depending on status of other clinical issues (bacteremia/GI complaints) HTN - bp overall controlled for age off of anti-hypertensives. con't to monitor hl - statin as above. nausea/diarrhea/abdominal pain - low suspicion for hepatic congestion since lft's are overall normal. (per gi notes patient with long-standing elevation in alk phos). Additionally no signs of gut edema or ascites on ct per report. minimal improvement in symptoms despite diuresis. - ongoing mgm't per gi/pmd
--- NOTE | 2017-04-02 19:10 | PN ---
Progress Note, Physician History of Present Illness: doing well still c/o belly pain?? - Current Medication List Current Medications: Active Medications Acetaminophen (Tylenol -) 650 mg PO Q6H PRN PRN Reason: FEVER OR PAIN Last Admin: 04/01/17 10:12 Dose: 650 mg Aspirin (Asa -) 81 mg PO DAILY [facility] Last Admin: 04/02/17 09:42 Dose: 81 mg Atorvastatin Calcium (Lipitor -) 40 mg PO HS [facility] Last Admin: 04/01/17 21:02 Dose: 40 mg Insulin Detemir (Levemir Vial) 35 units SQ DAILY@1700 [facility] Last Admin: 04/02/17 17:36 Dose: 35 units Ketorolac Tromethamine (Toradol Injection -) 15 mg IVPUSH Q6H PRN PRN Reason: PAIN Stop: 04/03/17 15:27 Nystatin (Nystop Powder -) 1 applic TP BID [facility] Last Admin: 04/02/17 09:46 Dose: 1 applic Pancrelipase (Shayna Dr 36,000 Units Capsule) 1 cap PO TIDCM [facility] Last Admin: 04/02/17 17:37 Dose: 1 cap Pantoprazole Sodium (Protonix -) 40 mg PO DAILY [facility] Last Admin: 04/02/17 09:42 Dose: 40 mg Ticagrelor (Brilinta) 60 mg PO BID [facility] Last Admin: 04/02/17 09:43 Dose: 60 mg - Objective Vital Signs: Vital Signs Temperature 99.4 F 04/02/17 14:53 Pulse Rate 72 04/02/17 15:00 Respiratory Rate 20 04/02/17 14:53 Blood Pressure 139/74 04/02/17 14:53 O2 Sat by Pulse Oximetry (%) 95 04/02/17 15:00 Constitutional: Yes: No Distress HENT: Yes: Atraumatic Neck: Yes: Supple Cardiovascular: Yes: Regular Rate and Rhythm Respiratory: Yes: CTA Bilaterally Gastrointestinal: Yes: Normal Bowel Sounds Extremities: Yes: WNL Peripheral Pulses WNL: Yes Neurological: Yes: Alert, Oriented Labs: CBC, BMP 03/29/17 16:55 04/02/17 07:15 INR, PTT INR 0.99 (0.82-1.09) 03/26/17 06:54 Problem List - Problems (1) Abdominal pain Assessment/Plan: better c/o bloating ...some discomfort abd xray ...no acute pathology will start her on ivf as elevated cr ...dehydration Code(s): R10.9 - UNSPECIFIED ABDOMINAL PAIN Qualifiers: Qualified Code(s): R10.84 - Generalized abdominal pain (2) Vomiting and diarrhea Code(s): R11.10 - VOMITING, UNSPECIFIED R19.7 - DIARRHEA, UNSPECIFIED Assessment/Plan repeat bc off of abx regular diet
[2017-04-02] MEDS: ATORVASTATIN CA 40 MG TABLET (FP) PO SCH (22:34)
[2017-04-03] MEDS: ACETAMINOPHEN 325 MG TABLET (FP) PO PRN ×2 (06:59→14:50)
[2017-04-03] MEDS ORDERED: PT OWN MED DRAWER 7, Y5N ONE ×5 (08:03→23:05)
[2017-04-03] MEDS: LIPASE/PROTEASE/AMYLASE 36,000 UNIT CAPSULE PO SCH ×3 (08:19→16:55)
[2017-04-03 08:39] LABS: BASOPHIL 0.7 % (0-2.0); EOSINOPHIL 3.4 % (0-4.5); MCH 29.4 pg (25.7-33.7); MCHC 33.5 g/dl (32.0-36.0); MEAN CELL VOLUME 87.7 fl (80-96); MEAN PLT VOLUME 9.4 fl (7.5-11.1); NEUTROPHILS 76.4 % (42.8-82.8); PLATELET COUNT 247 K/MM3 (134-434); WHITE BLOOD COUNT 10.2 K/mm3 (4.0-10.0)
[2017-04-03 08:49] LABS: ANION GAP 10 (8-16); CO2 27 mmol/L (21-32); CREATININE 1.3 mg/dL (0.55-1.02); GLUCOSE,RANDOM 183 mg/dL (74-106)
[2017-04-03] MEDS: TICAGRELOR 60 MG TABLET PO SCH ×2 (10:32→23:23)
[2017-04-03] MEDS: ASPIRIN 81 MG CHEWABLE TABLETS PO SCH (10:32)
[2017-04-03] MEDS: NYSTATIN POWDER 100,000 UNITS/GM - 15 GM TOPICAL POWDER TP SCH ×2 (10:33→22:47)
[2017-04-03] MEDS: PANTOPRAZOLE 40 MG TABLET (FP) PO SCH (10:33)
--- NOTE | 2017-04-03 15:36 | PN ---
Progress Note, Physician History of Present Illness: continues to c/o of abd pain no issues otherwise cardio on case - Current Medication List Current Medications: Active Medications Acetaminophen (Tylenol -) 650 mg PO Q6H PRN PRN Reason: FEVER OR PAIN Last Admin: 04/03/17 14:50 Dose: 650 mg Aspirin (Asa -) 81 mg PO DAILY [facility] Last Admin: 04/03/17 10:32 Dose: 81 mg Atorvastatin Calcium (Lipitor -) 40 mg PO HS [facility] Last Admin: 04/02/17 22:34 Dose: 40 mg Insulin Detemir (Levemir Vial) 35 units SQ DAILY@1700 [facility] Last Admin: 04/02/17 17:36 Dose: 35 units Nystatin (Nystop Powder -) 1 applic TP BID [facility] Last Admin: 04/03/17 10:33 Dose: 1 applic Pancrelipase (Creon Dr 36,000 Units Capsule) 1 cap PO TIDCM [facility] Last Admin: 04/03/17 12:28 Dose: 1 cap Pantoprazole Sodium (Protonix -) 40 mg PO DAILY [facility] Last Admin: 04/03/17 10:33 Dose: 40 mg Ticagrelor (Brilinta) 60 mg PO BID [facility] Last Admin: 04/03/17 10:32 Dose: 60 mg - Objective Vital Signs: Vital Signs Temperature 98 F 04/03/17 10:00 Pulse Rate 78 04/03/17 14:00 Respiratory Rate 18 04/03/17 14:00 Blood Pressure 120/58 04/03/17 14:00 O2 Sat by Pulse Oximetry (%) 98 04/03/17 11:00 Constitutional: Yes: Calm, Mild Distress Cardiovascular: Yes: S1, S2 Respiratory: Yes: Regular, CTA Bilaterally Gastrointestinal: Yes: Normal Bowel Sounds, Soft, Tenderness (epigastric region) Musculoskeletal: Yes: WNL Extremities: Yes: WNL Neurological: Yes: Alert, Oriented Psychiatric: Yes: Alert, Oriented Labs: CBC, BMP 04/03/17 07:15 04/03/17 07:15 INR, PTT INR 0.99 (0.82-1.09) 03/26/17 06:54 Assessment/Plan dirrhoea abd pain gm positive bacteremia weakness resp failure hypoxia plan continue to monitor rest as per primary continue as per cardiology
[2017-04-03] MEDS ORDERED: SODIUM CHLORIDE 1,000 ML IV SCH (16:00)
--- NOTE | 2017-04-03 16:03 | PN ---
Progress Note, Physician History of Present Illness: doing well still c/o belly pain?? - Current Medication List Current Medications: Active Medications Acetaminophen (Tylenol -) 650 mg PO Q6H PRN PRN Reason: FEVER OR PAIN Last Admin: 04/03/17 14:50 Dose: 650 mg Aspirin (Asa -) 81 mg PO DAILY [facility] Last Admin: 04/03/17 10:32 Dose: 81 mg Atorvastatin Calcium (Lipitor -) 40 mg PO HS [facility] Last Admin: 04/02/17 22:34 Dose: 40 mg Sodium Chloride (Normal Saline -) 1,000 mls @ 75 mls/hr IV ASDIR [facility] Insulin Detemir (Levemir Vial) 35 units SQ DAILY@1700 [facility] Last Admin: 04/02/17 17:36 Dose: 35 units Nystatin (Nystop Powder -) 1 applic TP BID [facility] Last Admin: 04/03/17 10:33 Dose: 1 applic Pancrelipase (Creon Dr 36,000 Units Capsule) 1 cap PO TIDCM [facility] Last Admin: 04/03/17 12:28 Dose: 1 cap Pantoprazole Sodium (Protonix -) 40 mg PO DAILY [facility] Last Admin: 04/03/17 10:33 Dose: 40 mg Ticagrelor (Brilinta) 60 mg PO BID [facility] Last Admin: 04/03/17 10:32 Dose: 60 mg - Objective Vital Signs: Vital Signs Temperature 98.5 F 04/03/17 14:46 Pulse Rate 75 04/03/17 14:46 Respiratory Rate 21 04/03/17 14:46 Blood Pressure 120/67 04/03/17 14:46 O2 Sat by Pulse Oximetry (%) 98 04/03/17 11:00 HENT: Yes: Atraumatic Neck: Yes: Supple Cardiovascular: Yes: Regular Rate and Rhythm Respiratory: Yes: CTA Bilaterally Gastrointestinal: Yes: Normal Bowel Sounds Extremities: Yes: WNL Edema: No Neurological: Yes: Alert Labs: CBC, BMP 04/03/17 07:15 04/03/17 07:15 INR, PTT INR 0.99 (0.82-1.09) 03/26/17 06:54 Problem List - Problems (1) Abdominal pain Assessment/Plan: better c/o bloating ...some discomfort abd xray ...no acute pathology will start her on ivf as elevated cr ...dehydration Code(s): R10.9 - UNSPECIFIED ABDOMINAL PAIN Qualifiers: Qualified Code(s): R10.84 - Generalized abdominal pain (2) Vomiting and diarrhea Assessment/Plan: resolved Code(s): R11.10 - VOMITING, UNSPECIFIED R19.7 - DIARRHEA, UNSPECIFIED
--- NOTE | 2017-04-03 16:39 | CONSULT ---
Consultation: REQUESTING PROVIDER: CONSULT REQUEST: We have been asked to medically evaluate this patient for ( nephrology). HISTORY OF PRESENT ILLNESS: 82 F with h/o IDDM, CAD/ND/stent, HTN, B12 def, admitted with 24 hours of N/V/D. She states the symptoms started after eating potato salad at a barbecue 2 days ago. Patient nausea, vomiting and diarrhoea has resolved. Patient had bowel movement yesterday. Patinet is accpeting food. Patient still complains of pain in epigastria area radiating to back . He lipase from 04/02 is normal. Nephro is consulted for increasing creatnine REVIEW OF SYSTEMS: CONSTITUTIONAL: Absent: fever, chills, HEENT: Absent: rhinorrhea, nasal congestion, throat pain, CARDIOVASCULAR: Absent: chest pain, syncope, palpitations, RESPIRATORY: Absent: cough, shortness of breath, GASTROINTESTINAL: Absent: abdominal pain, abdominal distension, nausea, vomiting, diarrhea, constipation, melena, hematochezia GENITOURINARY: Absent: dysuria, frequency, urgency, hesitancy, hematuria, flank pain, genital pain PHYSICAL EXAMINATION Vital Signs - 24 hr 04/02/17 04/02/17 04/02/17 19:00 19:14 21:00 Temperature 98.4 F Pulse Rate 71 75 Respiratory 18 Rate Blood Pressure 124/61 O2 Sat by Pulse 99 99 Oximetry (%) 04/02/17 04/03/17 04/03/17 23:00 00:19 00:57 Temperature 98.2 F Pulse Rate 69 95 H 71 Respiratory 18 Rate Blood Pressure 103/42 O2 Sat by Pulse 96 95 Oximetry (%) 04/03/17 04/03/17 04/03/17 03:00 06:00 06:32 Temperature 97.0 F L Pulse Rate 68 82 98 H Respiratory 18 Rate Blood Pressure 99/46 O2 Sat by Pulse 97 95 Oximetry (%) 04/03/17 04/03/17 04/03/17 07:00 09:00 10:00 Temperature 98 F Pulse Rate 67 76 Respiratory 21 18 Rate Blood Pressure 100/56 O2 Sat by Pulse 97 98 Oximetry (%) 04/03/17 04/03/17 04/03/17 11:00 14:00 14:46 Temperature 98.5 F Pulse Rate 76 78 75 Respiratory 18 21 Rate Blood Pressure 120/58 120/67 O2 Sat by Pulse 98 Oximetry (%) 04/03/17 15:00 Temperature Pulse Rate 78 Respiratory Rate Blood Pressure O2 Sat by Pulse 98 Oximetry (%) GENERAL: Awake, alert, and fully oriented, in no acute distress. HEAD: Normal with no signs of trauma. EARS, NOSE, THROAT:dry mucous membranes. NECK: Normal range of motion, supple without lymphadenopathy, JVD, or masses. LUNGS: Breath sounds equal, clear to auscultation bilaterally. No wheezes, and no crackles. No accessory muscle use. HEART: s1s2 normal ABDOMEN: Soft, nontender, distended, normoactive bowel sounds, UPPER EXTREMITIES: 2+ pulses, warm, well-perfused. . No peripheral edema. LOWER EXTREMITIES: . No calf tenderness. No peripheral edema. Laboratory Results - last 24 hr 04/02/17 04/02/17 04/03/17 17:29 23:08 06:58 WBC RBC Hgb Hct MCV MCH MCHC RDW Plt Count MPV Neutrophils % Lymphocytes % Monocytes % Eosinophils % Basophils % Sodium Potassium Chloride Carbon Dioxide Anion Gap BUN Creatinine POC Glucometer 293 205 182 Random Glucose Calcium 04/03/17 04/03/17 04/03/17 07:15 07:15 11:55 WBC 10.2 H RBC 4.55 Hgb 13.4 D Hct 39.9 MCV 87.7 MCH 29.4 MCHC 33.5 RDW 15.0 Plt Count 247 D MPV 9.4 Neutrophils % 76.4 Lymphocytes % 11.0 Monocytes % 8.5 Eosinophils % 3.4 D Basophils % 0.7 Sodium 137 Potassium 4.6 Chloride 100 Carbon Dioxide 27 Anion Gap 10 BUN 29 H D Creatinine 1.3 H POC Glucometer 284 Random Glucose 183 H Calcium 9.0 Active Medications Generic Name Dose Route Start Last Admin Trade Name Freq PRN Reason Stop Dose Admin Acetaminophen 650 mg 03/28/17 16:16 04/03/17 14:50 Tylenol - PO 650 mg Q6H PRN Administration FEVER OR PAIN Aspirin 81 mg 03/30/17 12:00 04/03/17 10:32 Asa - PO 81 mg DAILY JOSE ELIAS Administration Atorvastatin Calcium 40 mg 03/30/17 22:00 04/02/17 22:34 Lipitor - PO 40 mg HS JOSE ELIAS Administration Sodium Chloride 1,000 mls @ 75 mls/hr 04/03/17 16:00 Normal Saline - IV ASDIR JOSE ELIAS Insulin Detemir 35 units 03/31/17 23:15 04/02/17 17:36 Levemir Vial SQ 35 units DAILY@1700 JOSE ELIAS Administration Nystatin 1 applic 03/29/17 22:00 04/03/17 10:33 Nystop Powder - TP 1 applic BID JOSE ELIAS Administration Pancrelipase 1 cap 04/01/17 18:00 04/03/17 12:28 Shayna Alvarado 36,000 Units Capsule PO 1 cap TIDCM [facility] Administration Pantoprazole Sodium 40 mg 03/31/17 10:00 04/03/17 10:33 Protonix - PO 40 mg DAILY JOSE ELIAS Administration Ticagrelor 60 mg 03/30/17 16:00 04/03/17 10:32 Brilinta PO 60 mg BID JOSE ELIAS Administration Xray abd no acute pathology ASSESSMENT/PLAN: CAROLYN Abdominal pain Diarrhoea Vomiting, Plan Iv fluid Ns at 75ml/hr Get renal ultrasound urine electrolytes, cr, pro, cr:pro ratio Monitor blood sugar and control blood sugar. Monitor intake and out put. Monitor renal function. Monitor electrolytes Dispo: We will continue to follow the patient. Thank you for this consultative opportunity. Visit type - Emergency Visit Emergency Visit: Yes ED Registration Date: 03/28/17 Care time: The patient presented to the Emergency Department on the above date and was hospitalized for further evaluation of their emergent condition. - New Patient This patient is new to me today: Yes Date on this admission: 04/03/17 - Critical Care Critical Care patient: No
[2017-04-03] MEDS: INSULIN DETEMIR 100 UNITS/ML MDV SQ SCH (16:55)
--- NOTE | 2017-04-03 18:07 | PN ---
Teaching Attending Note Name of Resident: Carlos Naranjo (Nephrology) ATTENDING PHYSICIAN STATEMENT I saw and evaluated the patient. I reviewed the resident's note and discussed the case with the resident. I agree with the resident's findings and plan as documented. Nephrology Consult Please see consult filled out by resident. Pt is an 82 year old female who presents to the ER with nausea and vomiting. I was called to evaluate her for elevated creatinine. She has a baseline doctorate of chiropractic of about 1. I have seen her in the past for CAROLYN. She denied dysuria. She denies hematuria. SHe says she has been eating less over the last few days. pmhx dm htn chf anemia allergies tomato sauce ros abd pain family hx denies social hx neg Current Medications Generic Name Dose Route Start Last Admin Trade Name Freq PRN Reason Stop Dose Admin Acetaminophen 650 mg 03/28/17 16:16 04/03/17 14:50 Tylenol - PO 650 mg Q6H PRN Administration FEVER OR PAIN Aspirin 81 mg 03/30/17 12:00 04/03/17 10:32 Asa - PO 81 mg DAILY JOSE ELIAS Administration Atorvastatin Calcium 40 mg 03/30/17 22:00 04/02/17 22:34 Lipitor - PO 40 mg HS JOSE ELIAS Administration Sodium Chloride 1,000 mls @ 75 mls/hr 04/03/17 16:00 04/03/17 16:47 Normal Saline - IV 75 mls/hr ASDIR JOSE ELIAS Administration Insulin Detemir 35 units 03/31/17 23:15 04/03/17 16:55 Levemir Vial SQ 35 units DAILY@1700 JOSE EL[facility] Administration Nystatin 1 applic 03/29/17 22:00 04/03/17 10:33 Nystop Powder - TP 1 applic BID JOSE ELIAS Administration Pancrelipase 1 cap 04/01/17 18:00 04/03/17 16:55 Shayna Alvarado 36,000 Units Capsule PO 1 cap TIDCM JO[facility] ELI[facility] Administration Pantoprazole Sodium 40 mg 03/31/17 10:00 04/03/17 10:33 Protonix - PO 40 mg DAILY JOSE ELIAS Administration Ticagrelor 60 mg 03/30/17 16:00 04/03/17 10:32 Brilinta PO 60 mg BID JOSE ELIAS Administration Last Vital Signs Temp Pulse Resp BP Pulse Ox 98.5 F 78 21 120/67 98 04/03/17 14:46 04/03/17 15:00 04/03/17 14:46 04/03/17 14:46 04/03/17 15:00 Laboratory Tests 03/26/17 03/28/17 03/29/17 06:54 08:54 16:55 WBC Hgb Sodium Potassium Chloride Carbon Dioxide Anion Gap BUN Creatinine 1.2 H D 0.9 D 0.9 03/30/17 03/31/17 04/01/17 09:35 06:00 07:50 WBC Hgb Sodium Potassium Chloride Carbon Dioxide Anion Gap BUN Creatinine 0.9 0.8 1.1 H D 04/02/17 04/03/17 04/03/17 07:15 07:15 07:15 WBC 10.2 H Hgb 13.4 D Sodium 137 Potassium 4.6 Chloride 100 Carbon Dioxide 27 Anion Gap 10 BUN 29 H D Creatinine 1.2 H 1.3 H cardio s1s2 reg pulm clear GI soft, obese, epigastric pain ext trace edema neuro awake Impression 1. CAROLYN 2. abdominal pain 3. CAD 4. HTN 5. DM 6. CHF 7. hyperlipidemia Plan - send urine lytes and doctorate of chiropractic - check renal ultrasound - gentle hydration, change fluids to 1/2 at 42 - repeat labs in am - GI follow up Dr Hua
[2017-04-03] MEDS: SODIUM CHLORIDE 0.45% 1,000 ML IV SCH (20:00)
[2017-04-03] MEDS: ATORVASTATIN CA 40 MG TABLET (FP) PO SCH (22:47)
[2017-04-04 08:22] LABS: ALBUMIN 3.1 g/dl (3.4-5.0); ANION GAP 11 (8-16); CALCIUM 8.6 mg/dL (8.5-10.1); CO2 26 mmol/L (21-32); CREATININE 1.2 mg/dL (0.55-1.02); GLUCOSE,RANDOM 231 mg/dL (74-106); SGOT/AST 10 U/L (15-37); SGPT/ALT 20 U/L (12-78)
[2017-04-04 08:24] LABS: ALK PHOS 152 U/L (45-117); BILIRUBIN,TOTAL 0.6 mg/dL (0.2-1.0)
[2017-04-04] MEDS: LIPASE/PROTEASE/AMYLASE 36,000 UNIT CAPSULE PO SCH ×3 (08:30→17:34)
[2017-04-04] MEDS ORDERED: PT OWN MED DRAWER 7, Y5N ONE ×5 (09:05→20:21)
[2017-04-04] MEDS: TICAGRELOR 60 MG TABLET PO SCH ×2 (09:07→21:25)
[2017-04-04] MEDS: PANTOPRAZOLE 40 MG TABLET (FP) PO SCH ×2 (09:07→21:27)
[2017-04-04] MEDS: ASPIRIN 81 MG CHEWABLE TABLETS PO SCH (09:07)
[2017-04-04] MEDS: NYSTATIN POWDER 100,000 UNITS/GM - 15 GM TOPICAL POWDER TP SCH ×2 (09:10→21:26)
[2017-04-04 14:51] LABS: URINE APPEARANCE CLEAR; URINE BILIRUBIN NEGATIVE (NEGATIVE); URINE BLOOD NEGATIVE (NEGATIVE); URINE COLOR LTYELLOW; URINE GLUCOSE (UA) 2+ (NEGATIVE); URINE KETONE NEGATIVE (NEGATIVE); URINE LEUK ESTERASE NEGATIVE (NEGATIVE); URINE NITRITE NEGATIVE (NEGATIVE); URINE PROTEIN NEGATIVE (NEGATIVE); URINE UROBILINOGEN NEGATIVE mg/dL (0.2-1.0)
[2017-04-04 15:05] LABS: SODIUM,RANDOM URINE 12 MMOL/L
[2017-04-04 15:07] LABS: URINE CREATININE 61.4 mg/dL (20-320)
--- NOTE | 2017-04-04 16:28 | PN ---
Progress Note, Physician History of Present Illness: stable still with abd pain plan is for endoscopy tomorrow - Current Medication List Current Medications: Active Medications Acetaminophen (Tylenol -) 650 mg PO Q6H PRN PRN Reason: FEVER OR PAIN Last Admin: 04/03/17 14:50 Dose: 650 mg Aspirin (Asa -) 81 mg PO DAILY [facility] Last Admin: 04/04/17 09:07 Dose: 81 mg Atorvastatin Calcium (Lipitor -) 40 mg PO HS [facility] Last Admin: 04/03/17 22:47 Dose: 40 mg Sodium Chloride (1/2 Normal Saline) 1,000 mls @ 40 mls/hr IV ASDIR [facility] Last Admin: 04/03/17 20:00 Dose: 40 mls/hr Insulin Detemir (Levemir Vial) 35 units SQ DAILY@1700 [facility] Last Admin: 04/03/17 16:55 Dose: 35 units Nystatin (Nystop Powder -) 1 applic TP BID [facility] Last Admin: 04/04/17 09:10 Dose: 1 applic Pancrelipase (Creon Dr 36,000 Units Capsule) 1 cap PO TIDCM [facility] Last Admin: 04/04/17 12:06 Dose: 1 cap Pantoprazole Sodium (Protonix -) 40 mg PO DAILY [facility] Last Admin: 04/04/17 09:07 Dose: 40 mg Ticagrelor (Brilinta) 60 mg PO BID [facility] Last Admin: 04/04/17 09:07 Dose: 60 mg - Objective Vital Signs: Vital Signs Temperature 97.9 F 04/04/17 14:00 Pulse Rate 72 04/04/17 15:00 Respiratory Rate 19 04/04/17 14:00 Blood Pressure 127/64 04/04/17 14:00 O2 Sat by Pulse Oximetry (%) 96 04/04/17 15:00 Constitutional: Yes: No Distress, Calm Cardiovascular: Yes: Regular Rate and Rhythm Respiratory: Yes: Regular, CTA Bilaterally, On Nasal O2 Gastrointestinal: Yes: Soft, Tenderness (epigastrium) Musculoskeletal: Yes: WNL Extremities: Yes: WNL Neurological: Yes: Alert, Oriented Psychiatric: Yes: Alert, Oriented Labs: CBC, BMP 04/03/17 07:15 04/04/17 06:20 INR, PTT INR 0.99 (0.82-1.09) 03/26/17 06:54 Assessment/Plan dirrhoea abd pain gm positive bacteremia weakness resp failure hypoxia plan continue to monitor rest as per primary continue as per cardiology patient probably for endoscopy tomorrow
--- NOTE | 2017-04-04 17:13 | PN ---
Progress Note, Physician History of Present Illness: STILL HAS BELLY PAIN - Current Medication List Current Medications: Active Medications Acetaminophen (Tylenol -) 650 mg PO Q6H PRN PRN Reason: FEVER OR PAIN Last Admin: 04/03/17 14:50 Dose: 650 mg Aspirin (Asa -) 81 mg PO DAILY [facility] Last Admin: 04/04/17 09:07 Dose: 81 mg Atorvastatin Calcium (Lipitor -) 40 mg PO HS [facility] Last Admin: 04/03/17 22:47 Dose: 40 mg Sodium Chloride (1/2 Normal Saline) 1,000 mls @ 40 mls/hr IV ASDIR [facility] Last Admin: 04/03/17 20:00 Dose: 40 mls/hr Insulin Detemir (Levemir Vial) 35 units SQ DAILY@1700 [facility] Last Admin: 04/03/17 16:55 Dose: 35 units Nystatin (Nystop Powder -) 1 applic TP BID [facility] Last Admin: 04/04/17 09:10 Dose: 1 applic Pancrelipase (Creon Dr 36,000 Units Capsule) 1 cap PO TIDCM [facility] Last Admin: 04/04/17 12:06 Dose: 1 cap Pantoprazole Sodium (Protonix -) 40 mg PO DAILY [facility] Last Admin: 04/04/17 09:07 Dose: 40 mg Ticagrelor (Brilinta) 60 mg PO BID [facility] Last Admin: 04/04/17 09:07 Dose: 60 mg - Objective Vital Signs: Vital Signs Temperature 97.9 F 04/04/17 14:00 Pulse Rate 72 04/04/17 15:00 Respiratory Rate 19 04/04/17 14:00 Blood Pressure 127/64 04/04/17 14:00 O2 Sat by Pulse Oximetry (%) 96 04/04/17 15:00 Constitutional: Yes: No Distress HENT: Yes: Atraumatic Neck: Yes: Supple Cardiovascular: Yes: Regular Rate and Rhythm Respiratory: Yes: CTA Bilaterally Gastrointestinal: Yes: Normal Bowel Sounds Extremities: Yes: WNL Neurological: Yes: Alert, Oriented Labs: CBC, BMP 04/03/17 07:15 04/04/17 06:20 INR, PTT INR 0.99 (0.82-1.09) 03/26/17 06:54 Problem List - Problems (1) Abdominal pain Assessment/Plan: better GI NOTE REVIEWED Code(s): R10.9 - UNSPECIFIED ABDOMINAL PAIN Qualifiers: Qualified Code(s): R10.84 - Generalized abdominal pain (2) Vomiting and diarrhea Assessment/Plan: resolved Code(s): R11.10 - VOMITING, UNSPECIFIED R19.7 - DIARRHEA, UNSPECIFIED
--- NOTE | 2017-04-04 17:20 | PN ---
Progress Note, Physician History of Present Illness: Pt seen and examined at bedside. She is awake and alert. She denies shortness of breath. She does complain of abdominal pain. - Current Medication List Current Medications: Active Medications Acetaminophen (Tylenol -) 650 mg PO Q6H PRN PRN Reason: FEVER OR PAIN Last Admin: 04/03/17 14:50 Dose: 650 mg Aspirin (Asa -) 81 mg PO DAILY [facility] Last Admin: 04/04/17 09:07 Dose: 81 mg Atorvastatin Calcium (Lipitor -) 40 mg PO HS [facility] Last Admin: 04/03/17 22:47 Dose: 40 mg Sodium Chloride (1/2 Normal Saline) 1,000 mls @ 40 mls/hr IV ASDIR [facility] Last Admin: 04/03/17 20:00 Dose: 40 mls/hr Insulin Detemir (Levemir Vial) 35 units SQ DAILY@1700 [facility] Last Admin: 04/03/17 16:55 Dose: 35 units Nystatin (Nystop Powder -) 1 applic TP BID [facility] Last Admin: 04/04/17 09:10 Dose: 1 applic Pancrelipase (Creon Dr 36,000 Units Capsule) 1 cap PO TIDCM [facility] Last Admin: 04/04/17 12:06 Dose: 1 cap Pantoprazole Sodium (Protonix -) 40 mg PO DAILY [facility] Last Admin: 04/04/17 09:07 Dose: 40 mg Ticagrelor (Brilinta) 60 mg PO BID [facility] Last Admin: 04/04/17 09:07 Dose: 60 mg - Objective Vital Signs: Vital Signs Temperature 97.9 F 04/04/17 14:00 Pulse Rate 72 04/04/17 15:00 Respiratory Rate 19 04/04/17 14:00 Blood Pressure 127/64 04/04/17 14:00 O2 Sat by Pulse Oximetry (%) 96 04/04/17 15:00 Constitutional: Yes: Calm Eyes: Yes: Conjunctiva Clear HENT: Yes: Atraumatic Neck: Yes: Supple Cardiovascular: Yes: S1, S2 Respiratory: Yes: CTA Bilaterally Gastrointestinal: Yes: Soft, Abdomen, Obese, Tenderness Genitourinary: Yes: WNL Musculoskeletal: Yes: WNL Edema: Yes Edema: LLE: Trace, RLE: Trace Neurological: Yes: Oriented Psychiatric: Yes: Oriented Labs: CBC, BMP 04/03/17 07:15 04/04/17 06:20 INR, PTT INR 0.99 (0.82-1.09) 03/26/17 06:54 Assessment/Plan Current Medications Generic Name Dose Route Start Last Admin Trade Name Jas PRN Reason Stop Dose Admin Acetaminophen 650 mg 03/28/17 16:16 04/03/17 14:50 Tylenol - PO 650 mg Q6H PRN Administration FEVER OR PAIN Aspirin 81 mg 03/30/17 12:00 04/04/17 09:07 Asa - PO 81 mg DAILY JOSE ELIAS Administration Atorvastatin Calcium 40 mg 03/30/17 22:00 04/03/17 22:47 Lipitor - PO 40 mg HS JOSE ELIAS Administration Sodium Chloride 1,000 mls @ 40 mls/hr 04/03/17 18:15 04/03/17 20:00 1/2 Normal Saline IV 40 mls/hr ASDIR JOSE ELIAS Administration Insulin Detemir 35 units 03/31/17 23:15 04/03/17 16:55 Levemir Vial SQ 35 units DAILY@1700 JOSE ELIAS Administration Nystatin 1 applic 03/29/17 22:00 04/04/17 09:10 Nystop Powder - TP 1 applic BID JOSE ELIAS Administration Pancrelipase 1 cap 04/01/17 18:00 04/04/17 12:06 Crelinda Alvarado 36,000 Units Capsule PO 1 cap TIDCM JO[facility] ELIAS Administration Pantoprazole Sodium 40 mg 03/31/17 10:00 04/04/17 09:07 Protonix - PO 40 mg DAILY JOSE ELIAS Administration Ticagrelor 60 mg 03/30/17 16:00 04/04/17 09:07 Brilinta PO 60 mg BID JOSE ELIAS Administration Laboratory Tests 04/04/17 04/04/17 06:20 13:15 Sodium 137 Creatinine 1.2 H Ur Random Sodium 12 Urine Creatinine 61.4 Impression 1. CAROLYN 2. abdominal pain 3. CAD 4. HTN 5. DM 6. CHF 7. hyperlipidemia Plan - fena is 0.17 - pt tolerated fluids - will hold fluids overnight as she has hx of chf - GI follow up for abdominal pain - renal function is improving - follow up renal ultrasound - repeat labs in am
[2017-04-04] MEDS: INSULIN DETEMIR 100 UNITS/ML MDV SQ SCH (17:34)
[2017-04-04] MEDS ORDERED: INSULIN DETEMIR 100 UNITS/ML MDV SQ ONE (17:59)
--- NOTE | 2017-04-04 19:28 | PN ---
GI Progress Note Subjective: patient has epigastric pain, SOB, oxygen dependent, history of CHF, on chronic Aspirin use - Objective Vital Signs: Vital Signs Temperature 97.8 F 04/04/17 18:00 Pulse Rate 79 04/04/17 18:00 Respiratory Rate 20 04/04/17 18:00 Blood Pressure 139/60 04/04/17 18:00 O2 Sat by Pulse Oximetry (%) 96 04/04/17 18:00 Constitutional: Obese Eyes: Yes: Conjunctiva Clear HENT: Yes: Atraumatic Neck: Yes: Supple Cardiovascular: Yes: Regular Rate and Rhythm Respiratory: Yes: Diminished (at bases) ...Palpate: Yes: Soft, Tenderness, Epigastium. No: Firm/Rigid, Guarding, Hepatomegaly, Mass, Pulsatile Mass, Splenomegaly, Tenderness Labs: CBC, BMP 04/03/17 07:15 04/04/17 06:20 INR, PTT INR 0.99 (0.82-1.09) 03/26/17 06:54 Assessment/Plan Epigstric pain r/ PUD vs cardiac etiology R> Protonix 40mg bid Simethicone 80mg qid Pulmonary consult cardiology ff-up patient is a poor candidate for any Endoscopic procedure
[2017-04-04] MEDS: SODIUM CHLORIDE 0.45% 1,000 ML IV SCH (21:24)
[2017-04-04] MEDS: ATORVASTATIN CA 40 MG TABLET (FP) PO SCH (21:26)
[2017-04-04] MEDS: SIMETHICONE 80 MG TAB.CHEW (FP) PO SCH (21:26)
[2017-04-05] MEDS ORDERED: PT OWN MED DRAWER 7, Y5N ONE ×4 (08:51→22:33)
[2017-04-05] MEDS: LIPASE/PROTEASE/AMYLASE 36,000 UNIT CAPSULE PO SCH ×3 (08:53→17:25)
[2017-04-05 08:58] LABS: ANION GAP 9 (8-16); CALCIUM 8.3 mg/dL (8.5-10.1); CO2 27 mmol/L (21-32); GLUCOSE,RANDOM 175 mg/dL (74-106)
[2017-04-05] MEDS: NYSTATIN POWDER 100,000 UNITS/GM - 15 GM TOPICAL POWDER TP SCH ×2 (11:57→22:49)
[2017-04-05] MEDS: PANTOPRAZOLE 40 MG TABLET (FP) PO SCH ×2 (12:28→22:40)
[2017-04-05] MEDS: SIMETHICONE 80 MG TAB.CHEW (FP) PO SCH ×4 (12:28→22:41)
[2017-04-05] MEDS: TICAGRELOR 60 MG TABLET PO SCH ×2 (12:28→23:07)
[2017-04-05] MEDS: ASPIRIN 81 MG CHEWABLE TABLETS PO SCH (12:28)
--- NOTE | 2017-04-05 13:53 | PN ---
Progress Note, Physician History of Present Illness: patient stable no new issues endoscopy was deferred because of high risk - Current Medication List Current Medications: Active Medications Acetaminophen (Tylenol -) 650 mg PO Q6H PRN PRN Reason: FEVER OR PAIN Last Admin: 04/03/17 14:50 Dose: 650 mg Aspirin (Asa -) 81 mg PO DAILY [facility] Last Admin: 04/05/17 12:28 Dose: 81 mg Atorvastatin Calcium (Lipitor -) 40 mg PO HS [facility] Last Admin: 04/04/17 21:26 Dose: 40 mg Insulin Detemir (Levemir Vial) 35 units SQ DAILY@1700 [facility] Last Admin: 04/04/17 17:34 Dose: 35 units Nystatin (Nystop Powder -) 1 applic TP BID [facility] Last Admin: 04/05/17 11:57 Dose: 1 applic Pancrelipase (Creon Dr 36,000 Units Capsule) 1 cap PO TIDCM [facility] Last Admin: 04/05/17 11:57 Dose: 1 cap Pantoprazole Sodium (Protonix -) 40 mg PO BID [facility] Last Admin: 04/05/17 12:28 Dose: 40 mg Simethicone (Mylicon -) 80 mg PO QID [facility] Last Admin: 04/05/17 12:28 Dose: 80 mg Ticagrelor (Brilinta) 60 mg PO BID [facility] Last Admin: 04/05/17 12:28 Dose: 60 mg - Objective Vital Signs: Vital Signs Temperature 97.4 F L 04/05/17 11:00 Pulse Rate 64 04/05/17 11:00 Respiratory Rate 18 04/05/17 11:00 Blood Pressure 131/60 04/05/17 11:00 O2 Sat by Pulse Oximetry (%) 94 L 04/05/17 11:00 Constitutional: Yes: No Distress, Calm Cardiovascular: Yes: Regular Rate and Rhythm Respiratory: Yes: Regular, CTA Bilaterally Gastrointestinal: Yes: Normal Bowel Sounds, Soft, Tenderness (epigastric region) Neurological: Yes: Alert, Oriented Psychiatric: Yes: Alert, Oriented Labs: CBC, BMP 04/03/17 07:15 04/05/17 07:35 INR, PTT INR 0.99 (0.82-1.09) 03/26/17 06:54 Assessment/Plan dirrhoea abd pain gm positive bacteremia weakness resp failure hypoxia plan continue to monitor rest as per primary continue as per cardiology
--- NOTE | 2017-04-05 15:59 | PN ---
Progress Note, Physician History of Present Illness: Pt seen and examined at bedside. She is awake and alert. She still has abdominal discomfort. - Current Medication List Current Medications: Active Medications Acetaminophen (Tylenol -) 650 mg PO Q6H PRN PRN Reason: FEVER OR PAIN Last Admin: 04/03/17 14:50 Dose: 650 mg Aspirin (Asa -) 81 mg PO DAILY [facility] Last Admin: 04/05/17 12:28 Dose: 81 mg Atorvastatin Calcium (Lipitor -) 40 mg PO HS [facility] Last Admin: 04/04/17 21:26 Dose: 40 mg Insulin Detemir (Levemir Vial) 35 units SQ DAILY@1700 [facility] Last Admin: 04/04/17 17:34 Dose: 35 units Nystatin (Nystop Powder -) 1 applic TP BID [facility] Last Admin: 04/05/17 11:57 Dose: 1 applic Pancrelipase (Creon Dr 36,000 Units Capsule) 1 cap PO TIDCM [facility] Last Admin: 04/05/17 11:57 Dose: 1 cap Pantoprazole Sodium (Protonix -) 40 mg PO BID [facility] Last Admin: 04/05/17 12:28 Dose: 40 mg Simethicone (Mylicon -) 80 mg PO QID [facility] Last Admin: 04/05/17 14:33 Dose: 80 mg Ticagrelor (Brilinta) 60 mg PO BID [facility] Last Admin: 04/05/17 12:28 Dose: 60 mg - Objective Vital Signs: Vital Signs Temperature 97.4 F L 04/05/17 11:00 Pulse Rate 67 04/05/17 15:15 Respiratory Rate 16 04/05/17 15:15 Blood Pressure 139/60 04/05/17 15:15 O2 Sat by Pulse Oximetry (%) 96 04/05/17 15:00 Constitutional: Yes: Calm Eyes: Yes: Conjunctiva Clear HENT: Yes: Atraumatic Neck: Yes: Supple Cardiovascular: Yes: S1, S2 Respiratory: Yes: On Nasal O2 Gastrointestinal: Yes: Tenderness, Epigastrium Genitourinary: Yes: WNL Edema: Yes Neurological: Yes: Oriented Psychiatric: Yes: Oriented Labs: CBC, BMP 04/03/17 07:15 04/05/17 07:35 INR, PTT INR 0.99 (0.82-1.09) 03/26/17 06:54 Assessment/Plan Current Medications Generic Name Dose Route Start Last Admin Trade Name Freq PRN Reason Stop Dose Admin Acetaminophen 650 mg 03/28/17 16:16 04/03/17 14:50 Tylenol - PO 650 mg Q6H PRN Administration FEVER OR PAIN Aspirin 81 mg 03/30/17 12:00 04/05/17 12:28 Asa - PO 81 mg DAILY [facility] Administration Atorvastatin Calcium 40 mg 03/30/17 22:00 04/04/17 21:26 Lipitor - PO 40 mg HS [facility] EL[facility]AS Administration Insulin Detemir 35 units 03/31/17 23:15 04/04/17 17:34 Levemir Vial SQ 35 units DAILY@1700 [facility] Administration Nystatin 1 applic 03/29/17 22:00 04/05/17 11:57 Nystop Powder - TP 1 applic BID [facility] EL[facility] Administration Pancrelipase 1 cap 04/01/17 18:00 04/05/17 11:57 Shayna Alvarado 36,000 Units Capsule PO 1 cap TIDCM [facility] Administration Pantoprazole Sodium 40 mg 04/04/17 22:00 04/05/17 12:28 Protonix - PO 40 mg BID [facility] EL[facility]AS Administration Simethicone 80 mg 04/04/17 22:00 04/05/17 14:33 Mylicon - PO 80 mg QID [facility] Administration Ticagrelor 60 mg 03/30/17 16:00 04/05/17 12:28 Brilinta PO 60 mg BID [facility] EL[facility] Administration Impression 1. CAROLYN 2. abdominal pain 3. CAD 4. HTN 5. DM 6. CHF 7. hyperlipidemia 8. renal cyst Plan - renal function is improved - renal cyst should be followed - fluids stopped last night - repeat labs in am - will follow Dr Hua
--- NOTE | 2017-04-05 16:24 | PN ---
Progress Note, Physician History of Present Illness: pt wants to go home - Current Medication List Current Medications: Active Medications Acetaminophen (Tylenol -) 650 mg PO Q6H PRN PRN Reason: FEVER OR PAIN Last Admin: 04/03/17 14:50 Dose: 650 mg Aspirin (Asa -) 81 mg PO DAILY [facility] Last Admin: 04/05/17 12:28 Dose: 81 mg Atorvastatin Calcium (Lipitor -) 40 mg PO HS [facility] Last Admin: 04/04/17 21:26 Dose: 40 mg Insulin Detemir (Levemir Vial) 35 units SQ DAILY@1700 [facility] Last Admin: 04/04/17 17:34 Dose: 35 units Nystatin (Nystop Powder -) 1 applic TP BID [facility] Last Admin: 04/05/17 11:57 Dose: 1 applic Pancrelipase (Creon Dr 36,000 Units Capsule) 1 cap PO TIDCM [facility] Last Admin: 04/05/17 11:57 Dose: 1 cap Pantoprazole Sodium (Protonix -) 40 mg PO BID [facility] Last Admin: 04/05/17 12:28 Dose: 40 mg Simethicone (Mylicon -) 80 mg PO QID [facility] Last Admin: 04/05/17 14:33 Dose: 80 mg Ticagrelor (Brilinta) 60 mg PO BID [facility] Last Admin: 04/05/17 12:28 Dose: 60 mg - Objective Vital Signs: Vital Signs Temperature 97.4 F L 04/05/17 11:00 Pulse Rate 67 04/05/17 15:15 Respiratory Rate 16 04/05/17 15:15 Blood Pressure 139/60 04/05/17 15:15 O2 Sat by Pulse Oximetry (%) 96 04/05/17 15:00 Constitutional: Yes: No Distress HENT: Yes: Atraumatic Neck: Yes: Supple Cardiovascular: Yes: Regular Rate and Rhythm Respiratory: Yes: CTA Bilaterally Gastrointestinal: Yes: Normal Bowel Sounds Extremities: Yes: WNL Edema: No Peripheral Pulses WNL: Yes Neurological: Yes: Alert, Oriented Labs: CBC, BMP 04/03/17 07:15 04/05/17 07:35 INR, PTT INR 0.99 (0.82-1.09) 03/26/17 06:54 Problem List - Problems (1) Abdominal pain Assessment/Plan: better ...still has some pain Code(s): R10.9 - UNSPECIFIED ABDOMINAL PAIN Qualifiers: Qualified Code(s): R10.84 - Generalized abdominal pain (2) Vomiting and diarrhea Assessment/Plan: resolved Code(s): R11.10 - VOMITING, UNSPECIFIED R19.7 - DIARRHEA, UNSPECIFIED Assessment/Plan dc in am if stable papers filled out
[2017-04-05] MEDS: INSULIN DETEMIR 100 UNITS/ML MDV SQ SCH (17:25)
[2017-04-05] MEDS: ATORVASTATIN CA 40 MG TABLET (FP) PO SCH (22:40)
[2017-04-05] MEDS: ACETAMINOPHEN 325 MG TABLET (FP) PO PRN (22:41)
[2017-04-06 07:29] LABS: BASOPHIL 0.5 % (0-2.0); EOSINOPHIL 4.1 % (0-4.5); MCH 29.2 pg (25.7-33.7); MCHC 33.5 g/dl (32.0-36.0); MEAN CELL VOLUME 87.3 fl (80-96); MEAN PLT VOLUME 9.5 fl (7.5-11.1); NEUTROPHILS 75.1 % (42.8-82.8); PLATELET COUNT 195 K/MM3 (134-434); RDW 14.5 % (11.6-15.6); WHITE BLOOD COUNT 7.5 K/mm3 (4.0-10.0)
[2017-04-06 07:42] LABS: ALBUMIN 2.8 g/dl (3.4-5.0); ANION GAP 10 (8-16); CALCIUM 8.5 mg/dL (8.5-10.1); CO2 26 mmol/L (21-32); GLUCOSE,RANDOM 239 mg/dL (74-106); SGOT/AST 8 U/L (15-37)
[2017-04-06 07:44] LABS: ALK PHOS 145 U/L (45-117); BILIRUBIN,TOTAL 0.4 mg/dL (0.2-1.0); CREATININE 1.1 mg/dL (0.55-1.02); SGPT/ALT 16 U/L (12-78); TOT PROT 5.7 g/dl (6.4-8.2)
[2017-04-06] MEDS ORDERED: PT OWN MED DRAWER 7, Y5N ONE ×5 (08:17→22:52)
[2017-04-06] MEDS: LIPASE/PROTEASE/AMYLASE 36,000 UNIT CAPSULE PO SCH ×2 (08:48→12:26)
[2017-04-06] MEDS: ASPIRIN 81 MG CHEWABLE TABLETS PO SCH (10:46)
[2017-04-06] MEDS: SIMETHICONE 80 MG TAB.CHEW (FP) PO SCH (10:46)
[2017-04-06] MEDS: PANTOPRAZOLE 40 MG TABLET (FP) PO SCH ×2 (10:46→23:09)
[2017-04-06] MEDS: TICAGRELOR 60 MG TABLET PO SCH ×2 (11:54→23:08)
[2017-04-06] MEDS: NYSTATIN POWDER 100,000 UNITS/GM - 15 GM TOPICAL POWDER TP SCH ×2 (11:57→23:12)
--- NOTE | 2017-04-06 16:07 | PN ---
Progress Note, Physician History of Present Illness: stable with epigastric pain present looks like mostly muscular - Current Medication List Current Medications: Active Medications Acetaminophen (Tylenol -) 650 mg PO Q6H PRN PRN Reason: FEVER OR PAIN Last Admin: 04/05/17 22:41 Dose: 650 mg Aspirin (Asa -) 81 mg PO DAILY [facility] Last Admin: 04/06/17 10:46 Dose: 81 mg Atorvastatin Calcium (Lipitor -) 40 mg PO HS [facility] Last Admin: 04/05/17 22:40 Dose: 40 mg Insulin Detemir (Levemir Vial) 35 units SQ DAILY@1700 [facility] Last Admin: 04/05/17 17:25 Dose: 35 units Nystatin (Nystop Powder -) 1 applic TP BID [facility] Last Admin: 04/06/17 11:57 Dose: 1 applic Pantoprazole Sodium (Protonix -) 40 mg PO BID [facility] Last Admin: 04/06/17 10:46 Dose: 40 mg Ticagrelor (Brilinta) 60 mg PO BID [facility] Last Admin: 04/06/17 11:54 Dose: 60 mg - Objective Vital Signs: Vital Signs Temperature 98.1 F 04/06/17 15:35 Pulse Rate 68 04/06/17 15:35 Respiratory Rate 20 04/06/17 15:35 Blood Pressure 127/59 04/06/17 15:35 O2 Sat by Pulse Oximetry (%) 98 04/06/17 06:45 Constitutional: Yes: No Distress, Calm Cardiovascular: Yes: Regular Rate and Rhythm, S1, S2 Respiratory: Yes: Regular, On Nasal O2 Gastrointestinal: Yes: Normal Bowel Sounds, Soft Musculoskeletal: Yes: WNL Extremities: Yes: WNL Neurological: Yes: Alert, Oriented Psychiatric: Yes: Alert Labs: CBC, BMP 04/06/17 06:10 04/06/17 06:10 INR, PTT INR 0.99 (0.82-1.09) 03/26/17 06:54 Assessment/Plan dirrhoea abd pain gm positive bacteremia weakness resp failure hypoxia plan continue current mgmt rest as primary
[2017-04-06] MEDS: INSULIN DETEMIR 100 UNITS/ML MDV SQ SCH (18:02)
[2017-04-06] MEDS ORDERED: INSULIN (NOVOLOG) ASPART 100 UNITS/ML 10ML VIAL ONE (18:11)
[2017-04-06] MEDS ORDERED: INSULIN DETEMIR 100 UNITS/ML MDV SQ ONE (18:11)
[2017-04-06] MEDS ORDERED: INSULIN (NOVOLOG MIX 70/30) 100 UNITS/ML MDV SQ ONE (18:11)
--- NOTE | 2017-04-06 21:19 | PN ---
Progress Note, Physician History of Present Illness: stable - Current Medication List Current Medications: Active Medications Acetaminophen (Tylenol -) 650 mg PO Q6H PRN PRN Reason: FEVER OR PAIN Last Admin: 04/05/17 22:41 Dose: 650 mg Aspirin (Asa -) 81 mg PO DAILY [facility] Last Admin: 04/06/17 10:46 Dose: 81 mg Atorvastatin Calcium (Lipitor -) 40 mg PO HS [facility] Last Admin: 04/05/17 22:40 Dose: 40 mg Insulin Detemir (Levemir Vial) 35 units SQ DAILY@1700 [facility] Last Admin: 04/06/17 18:02 Dose: 35 units Nystatin (Nystop Powder -) 1 applic TP BID [facility] Last Admin: 04/06/17 11:57 Dose: 1 applic Pantoprazole Sodium (Protonix -) 40 mg PO BID [facility] Last Admin: 04/06/17 10:46 Dose: 40 mg Ticagrelor (Brilinta) 60 mg PO BID [facility] Last Admin: 04/06/17 11:54 Dose: 60 mg - Objective Vital Signs: Vital Signs Temperature 98.1 F 04/06/17 15:35 Pulse Rate 68 04/06/17 15:35 Respiratory Rate 20 04/06/17 15:35 Blood Pressure 127/59 04/06/17 15:35 O2 Sat by Pulse Oximetry (%) 98 04/06/17 06:45 Constitutional: Yes: No Distress HENT: Yes: Atraumatic Neck: Yes: Supple Cardiovascular: Yes: Regular Rate and Rhythm Respiratory: Yes: CTA Bilaterally Gastrointestinal: Yes: Normal Bowel Sounds Extremities: Yes: WNL Edema: No Neurological: Yes: Alert, Oriented Labs: CBC, BMP 04/06/17 06:10 04/06/17 06:10 INR, PTT INR 0.99 (0.82-1.09) 03/26/17 06:54 Problem List - Problems (1) Abdominal pain Assessment/Plan: better ...still has some pain Code(s): R10.9 - UNSPECIFIED ABDOMINAL PAIN Qualifiers: Qualified Code(s): R10.84 - Generalized abdominal pain (2) Vomiting and diarrhea Assessment/Plan: resolved Code(s): R11.10 - VOMITING, UNSPECIFIED R19.7 - DIARRHEA, UNSPECIFIED Assessment/Plan some problem in dc i filled out all the papers and discharge meds, initialed with my name as per senior case manager requested on 04/05/17. i encourage that dc planning should be started as soon as the patient arrives in the hospital and not on the day of discharge to avoid delay .
[2017-04-06] MEDS: ATORVASTATIN CA 40 MG TABLET (FP) PO SCH (23:08)
[2017-04-06] MEDS: SIMETHICONE 80 MG TAB.CHEW (FP) PO PRN (23:09)
[2017-04-06] MEDS: INSULIN SLIDING SCALE (NOVOLOG) 1 VIAL SQ SCH (23:14)
[2017-04-07] MEDS: sitaGLIPtin PHOSPHATE 100 MG TABLET (FP) PO SCH (06:23)
[2017-04-07] MEDS: INSULIN SLIDING SCALE (NOVOLOG) 1 VIAL SQ SCH ×4 (06:24→21:35)
[2017-04-07] MEDS ORDERED: PT OWN MED DRAWER 7, Y5N ONE (10:30)
[2017-04-07] MEDS: TICAGRELOR 60 MG TABLET PO SCH ×2 (10:31→21:36)
[2017-04-07] MEDS: ASPIRIN 81 MG CHEWABLE TABLETS PO SCH (10:31)
[2017-04-07] MEDS: PANTOPRAZOLE 40 MG TABLET (FP) PO SCH ×2 (10:31→21:36)
[2017-04-07] MEDS: NYSTATIN POWDER 100,000 UNITS/GM - 15 GM TOPICAL POWDER TP SCH (10:35)
--- NOTE | 2017-04-07 13:27 | PN ---
Progress Note, Physician History of Present Illness: stable no issues - Current Medication List Current Medications: Active Medications Acetaminophen (Tylenol -) 650 mg PO Q6H PRN PRN Reason: FEVER OR PAIN Last Admin: 04/05/17 22:41 Dose: 650 mg Aspirin (Asa -) 81 mg PO DAILY [facility] Last Admin: 04/07/17 10:31 Dose: 81 mg Atorvastatin Calcium (Lipitor -) 40 mg PO HS [facility] Last Admin: 04/06/17 23:08 Dose: 40 mg Insulin Aspart (Novolog Vial Sliding Scale -) 1 vial SQ ACHS [facility] PRN Reason: Protocol Last Admin: 04/07/17 12:13 Dose: 2 units Insulin Detemir (Levemir Vial) 35 units SQ DAILY@1700 [facility] Last Admin: 04/06/17 18:02 Dose: 35 units Nystatin (Nystop Powder -) 1 applic TP BID [facility] Last Admin: 04/07/17 10:35 Dose: Not Given Pantoprazole Sodium (Protonix -) 40 mg PO BID [facility] Last Admin: 04/07/17 10:31 Dose: 40 mg Simethicone (Mylicon -) 80 mg PO QID PRN PRN Reason: DYSPEPSIA Last Admin: 04/06/17 23:09 Dose: 80 mg Sitagliptin Phosphate (Januvia -) 100 mg PO DAILY@0700 [facility] Last Admin: 04/07/17 06:23 Dose: 100 mg Ticagrelor (Brilinta) 60 mg PO BID [facility] Last Admin: 04/07/17 10:31 Dose: 60 mg - Objective Vital Signs: Vital Signs Temperature 97.7 F 04/07/17 06:00 Pulse Rate 70 04/07/17 11:38 Respiratory Rate 20 04/07/17 09:30 Blood Pressure 123/46 04/07/17 09:30 O2 Sat by Pulse Oximetry (%) 97 04/07/17 11:38 Constitutional: Yes: No Distress, Calm Cardiovascular: Yes: Regular Rate and Rhythm Respiratory: Yes: Regular, CTA Bilaterally Gastrointestinal: Yes: Normal Bowel Sounds, Soft Musculoskeletal: Yes: WNL Extremities: Yes: WNL Neurological: Yes: Alert, Oriented Psychiatric: Yes: Alert, Oriented Labs: CBC, BMP 04/06/17 06:10 04/06/17 06:10 INR, PTT INR 0.99 (0.82-1.09) 03/26/17 06:54 Assessment/Plan dirrhoea abd pain gm positive bacteremia weakness resp failure hypoxia plan continue current mgmt rest as primary patient doing well awaiting for final plan
--- NOTE | 2017-04-07 14:41 | PN ---
Progress Note, Physician History of Present Illness: Pt seen and examined at bedside. She did have some shortness of breath today. - Current Medication List Current Medications: Active Medications Acetaminophen (Tylenol -) 650 mg PO Q6H PRN PRN Reason: FEVER OR PAIN Last Admin: 04/05/17 22:41 Dose: 650 mg Aspirin (Asa -) 81 mg PO DAILY [facility] Last Admin: 04/07/17 10:31 Dose: 81 mg Atorvastatin Calcium (Lipitor -) 40 mg PO HS [facility] Last Admin: 04/06/17 23:08 Dose: 40 mg Insulin Aspart (Novolog Vial Sliding Scale -) 1 vial SQ ACHS [facility] PRN Reason: Protocol Last Admin: 04/07/17 12:13 Dose: 2 units Insulin Detemir (Levemir Vial) 35 units SQ DAILY@1700 [facility] Last Admin: 04/06/17 18:02 Dose: 35 units Nystatin (Nystop Powder -) 1 applic TP BID [facility] Last Admin: 04/07/17 10:35 Dose: Not Given Pantoprazole Sodium (Protonix -) 40 mg PO BID [facility] Last Admin: 04/07/17 10:31 Dose: 40 mg Simethicone (Mylicon -) 80 mg PO QID PRN PRN Reason: DYSPEPSIA Last Admin: 04/06/17 23:09 Dose: 80 mg Sitagliptin Phosphate (Januvia -) 100 mg PO DAILY@0700 [facility] Last Admin: 04/07/17 06:23 Dose: 100 mg Ticagrelor (Brilinta) 60 mg PO BID [facility] Last Admin: 04/07/17 10:31 Dose: 60 mg - Objective Vital Signs: Vital Signs Temperature 97.7 F 04/07/17 06:00 Pulse Rate 70 04/07/17 11:38 Respiratory Rate 20 04/07/17 09:30 Blood Pressure 123/46 04/07/17 09:30 O2 Sat by Pulse Oximetry (%) 97 04/07/17 11:38 Constitutional: Yes: Calm Eyes: Yes: Conjunctiva Clear HENT: Yes: Atraumatic Neck: Yes: Supple Cardiovascular: Yes: S1, S2 Respiratory: Yes: On Nasal O2 Gastrointestinal: Yes: Soft, Abdomen, Obese Genitourinary: Yes: WNL Musculoskeletal: Yes: WNL Edema: Yes Edema: LLE: Trace, RLE: Trace Neurological: Yes: Oriented Psychiatric: Yes: Oriented Labs: CBC, BMP 04/06/17 06:10 04/06/17 06:10 INR, PTT INR 0.99 (0.82-1.09) 03/26/17 06:54 Assessment/Plan Current Medications Generic Name Dose Route Start Last Admin Trade Name Freq PRN Reason Stop Dose Admin Acetaminophen 650 mg 03/28/17 16:16 04/05/17 22:41 Tylenol - PO 650 mg Q6H PRN Administration FEVER OR PAIN Aspirin 81 mg 03/30/17 12:00 04/07/17 10:31 Asa - PO 81 mg DAILY [facility] Administration Atorvastatin Calcium 40 mg 03/30/17 22:00 04/06/17 23:08 Lipitor - PO 40 mg HS [facility] Administration Insulin Aspart 1 vial 04/06/17 22:00 04/07/17 12:13 Novolog Vial Sliding Scale - SQ 2 units ACHS [facility] Administration Protocol Insulin Detemir 35 units 03/31/17 23:15 04/06/17 18:02 Levemir Vial SQ 35 units DAILY@1700 [facility] Administration Nystatin 1 applic 03/29/17 22:00 04/07/17 10:35 Nystop Powder - TP Not Given BID [facility] Pantoprazole Sodium 40 mg 04/04/17 22:00 04/07/17 10:31 Protonix - PO 40 mg BID [facility] Administration Simethicone 80 mg 04/06/17 22:20 04/06/17 23:09 Mylicon - PO 80 mg QID PRN Administration DYSPEPSIA Sitagliptin Phosphate 100 mg 04/07/17 07:00 04/07/17 06:23 Januvia - PO 100 mg DAILY@0700 [facility] Administration Ticagrelor 60 mg 03/30/17 16:00 04/07/17 10:31 Brilinta PO 60 mg BID [facility] Administration Impression 1. CAROLYN 2. abdominal pain 3. CAD 4. HTN 5. DM 6. CHF 7. hyperlipidemia 8. renal cyst Plan - restart lasix at 40 mg daily, she was on 80 mg before admission - repeat labs in am - monito volume status - will follow - renal cyst should be followed Dr Hua
[2017-04-07] MEDS: FUROSEMIDE 40 MG TABLET (FP) PO SCH (15:58)
[2017-04-07] MEDS: INSULIN DETEMIR 100 UNITS/ML MDV SQ SCH (17:14)
[2017-04-07] MEDS ORDERED: INSULIN DETEMIR 100 UNITS/ML MDV SQ ONE (17:19)
--- NOTE | 2017-04-07 21:15 | PN ---
Progress Note, Physician - Current Medication List Current Medications: Active Medications Acetaminophen (Tylenol -) 650 mg PO Q6H PRN PRN Reason: FEVER OR PAIN Last Admin: 04/05/17 22:41 Dose: 650 mg Aspirin (Asa -) 81 mg PO DAILY [facility] Last Admin: 04/07/17 10:31 Dose: 81 mg Atorvastatin Calcium (Lipitor -) 40 mg PO HS [facility] Last Admin: 04/06/17 23:08 Dose: 40 mg Furosemide (Lasix -) 40 mg PO DAILY [facility] Last Admin: 04/07/17 15:58 Dose: 40 mg Insulin Aspart (Novolog Vial Sliding Scale -) 1 vial SQ ACHS [facility] PRN Reason: Protocol Last Admin: 04/07/17 16:48 Dose: 2 units Insulin Detemir (Levemir Vial) 35 units SQ DAILY@1700 [facility] Last Admin: 04/07/17 17:14 Dose: 35 units Nystatin (Nystop Powder -) 1 applic TP BID [facility] Last Admin: 04/07/17 10:35 Dose: Not Given Pantoprazole Sodium (Protonix -) 40 mg PO BID [facility] Last Admin: 04/07/17 10:31 Dose: 40 mg Simethicone (Mylicon -) 80 mg PO QID PRN PRN Reason: DYSPEPSIA Last Admin: 04/06/17 23:09 Dose: 80 mg Sitagliptin Phosphate (Januvia -) 100 mg PO DAILY@0700 [facility] Last Admin: 04/07/17 06:23 Dose: 100 mg Ticagrelor (Brilinta) 60 mg PO BID [facility] Last Admin: 04/07/17 10:31 Dose: 60 mg - Objective Vital Signs: Vital Signs Temperature 97.5 F L 04/07/17 20:01 Pulse Rate 72 04/07/17 20:01 Respiratory Rate 20 04/07/17 20:01 Blood Pressure 126/67 04/07/17 20:01 O2 Sat by Pulse Oximetry (%) 99 04/07/17 16:52 Labs: CBC, BMP 04/06/17 06:10 04/06/17 06:10 INR, PTT INR 0.99 (0.82-1.09) 03/26/17 06:54
[2017-04-07] MEDS: ATORVASTATIN CA 40 MG TABLET (FP) PO SCH (21:36)
[2017-04-08] MEDS: NYSTATIN POWDER 100,000 UNITS/GM - 15 GM TOPICAL POWDER TP SCH ×2 (03:50→09:33)
[2017-04-08] MEDS: INSULIN SLIDING SCALE (NOVOLOG) 1 VIAL SQ SCH ×4 (06:08→22:25)
[2017-04-08] MEDS: sitaGLIPtin PHOSPHATE 100 MG TABLET (FP) PO SCH (06:37)
[2017-04-08 08:13] LABS: ANION GAP 12 (8-16); CO2 26 mmol/L (21-32); GLUCOSE,RANDOM 216 mg/dL (74-106)
[2017-04-08 08:14] LABS: CREATININE 1.2 mg/dL (0.55-1.02)
[2017-04-08] MEDS ORDERED: PT OWN MED DRAWER 7, Y5N ONE (09:29)
[2017-04-08] MEDS: PANTOPRAZOLE 40 MG TABLET (FP) PO SCH ×2 (09:31→22:24)
[2017-04-08] MEDS: FUROSEMIDE 40 MG TABLET (FP) PO SCH (09:31)
[2017-04-08] MEDS: ASPIRIN 81 MG CHEWABLE TABLETS PO SCH (09:31)
[2017-04-08] MEDS: TICAGRELOR 60 MG TABLET PO SCH ×2 (09:32→22:25)
[2017-04-08] MEDS: SIMETHICONE 80 MG TAB.CHEW (FP) PO PRN ×2 (09:38→18:28)
--- NOTE | 2017-04-08 13:06 | PN ---
Progress Note, Physician History of Present Illness: stable no new issues - Current Medication List Current Medications: Active Medications Acetaminophen (Tylenol -) 650 mg PO Q6H PRN PRN Reason: FEVER OR PAIN Last Admin: 04/05/17 22:41 Dose: 650 mg Aspirin (Asa -) 81 mg PO DAILY [facility] Last Admin: 04/08/17 09:31 Dose: 81 mg Atorvastatin Calcium (Lipitor -) 40 mg PO HS [facility] Last Admin: 04/07/17 21:36 Dose: 40 mg Furosemide (Lasix -) 40 mg PO DAILY [facility] Last Admin: 04/08/17 09:31 Dose: 40 mg Insulin Aspart (Novolog Vial Sliding Scale -) 1 vial SQ ACHS [facility] PRN Reason: Protocol Last Admin: 04/08/17 11:29 Dose: 4 units Insulin Detemir (Levemir Vial) 35 units SQ DAILY@1700 [facility] Last Admin: 04/07/17 17:14 Dose: 35 units Nystatin (Nystop Powder -) 1 applic TP BID [facility] Last Admin: 04/08/17 09:33 Dose: Not Given Pantoprazole Sodium (Protonix -) 40 mg PO BID [facility] Last Admin: 04/08/17 09:31 Dose: 40 mg Simethicone (Mylicon -) 80 mg PO QID PRN PRN Reason: DYSPEPSIA Last Admin: 04/08/17 09:38 Dose: 80 mg Sitagliptin Phosphate (Januvia -) 100 mg PO DAILY@0700 [facility] Last Admin: 04/08/17 06:37 Dose: 100 mg Ticagrelor (Brilinta) 60 mg PO BID [facility] Last Admin: 04/08/17 09:32 Dose: 60 mg - Objective Vital Signs: Vital Signs Temperature 97.9 F 04/08/17 06:00 Pulse Rate 70 04/08/17 11:57 Respiratory Rate 20 04/08/17 11:57 Blood Pressure 104/59 04/08/17 11:57 O2 Sat by Pulse Oximetry (%) 97 04/08/17 11:57 Constitutional: Yes: No Distress, Calm Cardiovascular: Yes: Regular Rate and Rhythm Respiratory: Yes: Regular, CTA Bilaterally, On Nasal O2 Gastrointestinal: Yes: Normal Bowel Sounds, Soft Musculoskeletal: Yes: WNL Extremities: Yes: WNL Neurological: Yes: Alert, Oriented Psychiatric: Yes: Alert Labs: CBC, BMP 04/06/17 06:10 04/08/17 06:00 INR, PTT INR 0.99 (0.82-1.09) 03/26/17 06:54 Assessment/Plan dirrhoea abd pain gm positive bacteremia weakness resp failure hypoxia plan continue current mgmt rest as primary patient doing well awaiting for final plan
[2017-04-08] MEDS: INSULIN DETEMIR 100 UNITS/ML MDV SQ SCH (16:41)
[2017-04-08] MEDS ORDERED: FUROSEMIDE 40 MG TABLET (FP) PO ONE (16:52)
--- NOTE | 2017-04-08 16:52 | PN ---
Progress Note, Physician History of Present Illness: Pt seen and examined at bedside. She complains of shortness of breath today. - Current Medication List Current Medications: Active Medications Acetaminophen (Tylenol -) 650 mg PO Q6H PRN PRN Reason: FEVER OR PAIN Last Admin: 04/05/17 22:41 Dose: 650 mg Aspirin (Asa -) 81 mg PO DAILY [facility] Last Admin: 04/08/17 09:31 Dose: 81 mg Atorvastatin Calcium (Lipitor -) 40 mg PO HS [facility] Last Admin: 04/07/17 21:36 Dose: 40 mg Furosemide (Lasix -) 40 mg PO DAILY [facility] Last Admin: 04/08/17 09:31 Dose: 40 mg Insulin Aspart (Novolog Vial Sliding Scale -) 1 vial SQ ACHS [facility] PRN Reason: Protocol Last Admin: 04/08/17 16:40 Dose: 4 units Insulin Detemir (Levemir Vial) 35 units SQ DAILY@1700 [facility] Last Admin: 04/08/17 16:41 Dose: 35 units Nystatin (Nystop Powder -) 1 applic TP BID [facility] Last Admin: 04/08/17 09:33 Dose: Not Given Pantoprazole Sodium (Protonix -) 40 mg PO BID [facility] Last Admin: 04/08/17 09:31 Dose: 40 mg Simethicone (Mylicon -) 80 mg PO QID PRN PRN Reason: DYSPEPSIA Last Admin: 04/08/17 09:38 Dose: 80 mg Sitagliptin Phosphate (Januvia -) 100 mg PO DAILY@0700 [facility] Last Admin: 04/08/17 06:37 Dose: 100 mg Ticagrelor (Brilinta) 60 mg PO BID [facility] Last Admin: 04/08/17 09:32 Dose: 60 mg - Objective Vital Signs: Vital Signs Temperature 98.3 F 04/08/17 14:50 Pulse Rate 64 04/08/17 16:31 Respiratory Rate 20 04/08/17 16:31 Blood Pressure 113/59 04/08/17 16:31 O2 Sat by Pulse Oximetry (%) 97 04/08/17 16:30 Constitutional: Yes: Calm Eyes: Yes: Conjunctiva Clear HENT: Yes: Atraumatic Neck: Yes: Supple Cardiovascular: Yes: S1, S2 Respiratory: Yes: On Nasal O2 Gastrointestinal: Yes: Soft, Abdomen, Obese Genitourinary: Yes: WNL Musculoskeletal: Yes: WNL Edema: Yes Edema: LLE: 1+, RLE: 1+ Neurological: Yes: Oriented Psychiatric: Yes: Oriented Labs: CBC, BMP 04/06/17 06:10 04/08/17 06:00 INR, PTT INR 0.99 (0.82-1.09) 03/26/17 06:54 Assessment/Plan Current Medications Generic Name Dose Route Start Last Admin Trade Name Freq PRN Reason Stop Dose Admin Acetaminophen 650 mg 03/28/17 16:16 04/05/17 22:41 Tylenol - PO 650 mg Q6H PRN Administration FEVER OR PAIN Aspirin 81 mg 03/30/17 12:00 04/08/17 09:31 Asa - PO 81 mg DAILY [facility] Administration Atorvastatin Calcium 40 mg 03/30/17 22:00 04/07/17 21:36 Lipitor - PO 40 mg HS [facility] Administration Furosemide 40 mg 04/07/17 14:45 04/08/17 09:31 Lasix - PO 40 mg DAILY [facility] Administration Insulin Aspart 1 vial 04/06/17 22:00 04/08/17 16:40 Novolog Vial Sliding Scale - SQ 4 units ACHS [facility] Administration Protocol Insulin Detemir 35 units 03/31/17 23:15 04/08/17 16:41 Levemir Vial SQ 35 units DAILY@1700 [facility] Administration Nystatin 1 applic 03/29/17 22:00 04/08/17 09:33 Nystop Powder - TP Not Given BID [facility] Pantoprazole Sodium 40 mg 04/04/17 22:00 04/08/17 09:31 Protonix - PO 40 mg BID [facility] Administration Simethicone 80 mg 04/06/17 22:20 04/08/17 09:38 Mylicon - PO 80 mg QID PRN Administration DYSPEPSIA Sitagliptin Phosphate 100 mg 04/07/17 07:00 04/08/17 06:37 Januvia - PO 100 mg DAILY@0700 [facility] Administration Ticagrelor 60 mg 03/30/17 16:00 04/08/17 09:32 Brilinta PO 60 mg BID [facility] Administration Impression 1. CAROLYN 2. abdominal pain 3. CAD 4. HTN 5. DM 6. CHF 7. hyperlipidemia 8. renal cyst Plan - will give another 40 mg of lasix - will put pt back on the 80 mg of lasix - repeat labs in am - will need outpt follow up - renal cyst should be followed Dr Hua
[2017-04-08] MEDS: ATORVASTATIN CA 40 MG TABLET (FP) PO SCH (22:24)
--- NOTE | 2017-04-08 23:44 | PN ---
Progress Note, Physician - Current Medication List Current Medications: Active Medications Acetaminophen (Tylenol -) 650 mg PO Q6H PRN PRN Reason: FEVER OR PAIN Last Admin: 04/05/17 22:41 Dose: 650 mg Aspirin (Asa -) 81 mg PO DAILY [facility] Last Admin: 04/08/17 09:31 Dose: 81 mg Atorvastatin Calcium (Lipitor -) 40 mg PO HS [facility] Last Admin: 04/08/17 22:24 Dose: 40 mg Furosemide (Lasix -) 80 mg PO DAILY [facility] Insulin Aspart (Novolog Vial Sliding Scale -) 1 vial SQ ACHS [facility] PRN Reason: Protocol Last Admin: 04/08/17 22:25 Dose: 2 units Insulin Detemir (Levemir Vial) 35 units SQ DAILY@1700 [facility] Last Admin: 04/08/17 16:41 Dose: 35 units Nystatin (Nystop Powder -) 1 applic TP BID [facility] Last Admin: 04/08/17 09:33 Dose: Not Given Pantoprazole Sodium (Protonix -) 40 mg PO BID [facility] Last Admin: 04/08/17 22:24 Dose: 40 mg Simethicone (Mylicon -) 80 mg PO QID PRN PRN Reason: DYSPEPSIA Last Admin: 04/08/17 18:28 Dose: 80 mg Sitagliptin Phosphate (Januvia -) 100 mg PO DAILY@0700 [facility] Last Admin: 04/08/17 06:37 Dose: 100 mg Ticagrelor (Brilinta) 60 mg PO BID [facility] Last Admin: 04/08/17 22:25 Dose: 60 mg - Objective Vital Signs: Vital Signs Temperature 98.3 F 04/08/17 14:50 Pulse Rate 69 04/08/17 18:10 Respiratory Rate 18 04/08/17 18:10 Blood Pressure 129/70 04/08/17 18:10 O2 Sat by Pulse Oximetry (%) 97 04/08/17 16:30 Labs: CBC, BMP 04/06/17 06:10 04/08/17 06:00 INR, PTT INR 0.99 (0.82-1.09) 03/26/17 06:54
[2017-04-09] MEDS: NYSTATIN POWDER 100,000 UNITS/GM - 15 GM TOPICAL POWDER TP SCH ×2 (01:31→10:23)
[2017-04-09] MEDS: INSULIN SLIDING SCALE (NOVOLOG) 1 VIAL SQ SCH ×2 (06:19→12:09)
[2017-04-09] MEDS: sitaGLIPtin PHOSPHATE 100 MG TABLET (FP) PO SCH (06:19)
[2017-04-09] MEDS ORDERED: FUROSEMIDE 40 MG TABLET (FP) PO SCH (10:00)
[2017-04-09] MEDS ORDERED: PT OWN MED DRAWER 7, Y5N ONE (10:18)
[2017-04-09] MEDS: TICAGRELOR 60 MG TABLET PO SCH (10:20)
[2017-04-09] MEDS: ASPIRIN 81 MG CHEWABLE TABLETS PO SCH (10:20)
[2017-04-09] MEDS: PANTOPRAZOLE 40 MG TABLET (FP) PO SCH (10:24)
[2017-04-09 11:22] VITALS: TEMP 97.9
[2017-04-09] MEDS: SIMETHICONE 80 MG TAB.CHEW (FP) PO PRN (14:37)
--- NOTE | 2017-04-09 14:55 | PN ---
Progress Note, Physician History of Present Illness: Pt seen and examined at bedside. She feels her breathing is improved today. - Current Medication List Current Medications: Active Medications Acetaminophen (Tylenol -) 650 mg PO Q6H PRN PRN Reason: FEVER OR PAIN Last Admin: 04/05/17 22:41 Dose: 650 mg Aspirin (Asa -) 81 mg PO DAILY [facility] Last Admin: 04/09/17 10:20 Dose: 81 mg Atorvastatin Calcium (Lipitor -) 40 mg PO HS [facility] Last Admin: 04/08/17 22:24 Dose: 40 mg Furosemide (Lasix -) 80 mg PO DAILY [facility] Last Admin: 04/09/17 10:21 Dose: 80 mg Insulin Aspart (Novolog Vial Sliding Scale -) 1 vial SQ ACHS [facility] PRN Reason: Protocol Last Admin: 04/09/17 12:09 Dose: 4 units Insulin Detemir (Levemir Vial) 35 units SQ DAILY@1700 [facility] Last Admin: 04/08/17 16:41 Dose: 35 units Nystatin (Nystop Powder -) 1 applic TP BID [facility] Last Admin: 04/09/17 10:23 Dose: 1 applic Pantoprazole Sodium (Protonix -) 40 mg PO BID [facility] Last Admin: 04/09/17 10:24 Dose: 40 mg Simethicone (Mylicon -) 80 mg PO QID PRN PRN Reason: DYSPEPSIA Last Admin: 04/09/17 14:37 Dose: 80 mg Sitagliptin Phosphate (Januvia -) 100 mg PO DAILY@0700 [facility] Last Admin: 04/09/17 06:19 Dose: 100 mg Ticagrelor (Brilinta) 60 mg PO BID [facility] Last Admin: 04/09/17 10:20 Dose: 60 mg - Objective Vital Signs: Vital Signs Temperature 97.9 F 04/09/17 10:00 Pulse Rate 70 04/09/17 13:43 Respiratory Rate 18 04/09/17 10:00 Blood Pressure 112/46 04/09/17 10:00 O2 Sat by Pulse Oximetry (%) 98 04/09/17 13:43 Constitutional: Yes: Calm Eyes: Yes: Conjunctiva Clear HENT: Yes: Atraumatic Cardiovascular: Yes: S1, S2 Respiratory: Yes: CTA Bilaterally, On Nasal O2 Gastrointestinal: Yes: Soft, Abdomen, Obese Genitourinary: Yes: WNL Musculoskeletal: Yes: WNL Edema: LLE: 1+, RLE: 1+ Integumentary: Yes: Venous Stasis Changes Neurological: Yes: Oriented Psychiatric: Yes: Oriented Labs: CBC, BMP 04/06/17 06:10 04/08/17 06:00 INR, PTT INR 0.99 (0.82-1.09) 03/26/17 06:54 Assessment/Plan Current Medications Generic Name Dose Route Start Last Admin Trade Name Frelucius PRN Reason Stop Dose Admin Acetaminophen 650 mg 03/28/17 16:16 04/05/17 22:41 Tylenol - PO 650 mg Q6H PRN Administration FEVER OR PAIN Aspirin 81 mg 03/30/17 12:00 04/09/17 10:20 Asa - PO 81 mg DAILY JOSE ELIAS Administration Atorvastatin Calcium 40 mg 03/30/17 22:00 04/08/17 22:24 Lipitor - PO 40 mg HS JOSE ELIAS Administration Furosemide 80 mg 04/09/17 10:00 04/09/17 10:21 Lasix - PO 80 mg DAILY JOSE ELIAS Administration Insulin Aspart 1 vial 04/06/17 22:00 04/09/17 12:09 Novolog Vial Sliding Scale - SQ 4 units ACHS JOSE ELIAS Administration Protocol Insulin Detemir 35 units 03/31/17 23:15 04/08/17 16:41 Levemir Vial SQ 35 units DAILY@1700 JOSE ELIAS Administration Nystatin 1 applic 03/29/17 22:00 04/09/17 10:23 Nystop Powder - TP 1 applic BID JOSE ELIAS Administration Pantoprazole Sodium 40 mg 04/04/17 22:00 04/09/17 10:24 Protonix - PO 40 mg BID JOSE ELIAS Administration Simethicone 80 mg 04/06/17 22:20 04/09/17 14:37 Mylicon - PO 80 mg QID PRN Administration DYSPEPSIA Sitagliptin Phosphate 100 mg 04/07/17 07:00 04/09/17 06:19 Januvia - PO 100 mg DAILY@0700 JOSE ELIAS Administration Ticagrelor 60 mg 03/30/17 16:00 04/09/17 10:20 Brilinta PO 60 mg BID JOSE ELIAS Administration Impression 1. CAROLYN 2. abdominal pain 3. CAD 4. HTN 5. DM 6. CHF 7. hyperlipidemia 8. renal cyst Plan - cont with lasix 80 mg - will see pt in office for CKD workup - volume status improved - monitor renal function - avoid nsaids - renal cyst should be followed Dr Hua
--- NOTE | 2017-04-09 15:39 | PN ---
Progress Note, Physician History of Present Illness: stable no new issues - Current Medication List Current Medications: Active Medications Acetaminophen (Tylenol -) 650 mg PO Q6H PRN PRN Reason: FEVER OR PAIN Last Admin: 04/05/17 22:41 Dose: 650 mg Aspirin (Asa -) 81 mg PO DAILY [facility] Last Admin: 04/09/17 10:20 Dose: 81 mg Atorvastatin Calcium (Lipitor -) 40 mg PO HS [facility] Last Admin: 04/08/17 22:24 Dose: 40 mg Furosemide (Lasix -) 80 mg PO DAILY [facility] Last Admin: 04/09/17 10:21 Dose: 80 mg Insulin Aspart (Novolog Vial Sliding Scale -) 1 vial SQ ACHS [facility] PRN Reason: Protocol Last Admin: 04/09/17 12:09 Dose: 4 units Insulin Detemir (Levemir Vial) 35 units SQ DAILY@1700 [facility] Last Admin: 04/08/17 16:41 Dose: 35 units Nystatin (Nystop Powder -) 1 applic TP BID [facility] Last Admin: 04/09/17 10:23 Dose: 1 applic Pantoprazole Sodium (Protonix -) 40 mg PO BID [facility] Last Admin: 04/09/17 10:24 Dose: 40 mg Simethicone (Mylicon -) 80 mg PO QID PRN PRN Reason: DYSPEPSIA Last Admin: 04/09/17 14:37 Dose: 80 mg Sitagliptin Phosphate (Januvia -) 100 mg PO DAILY@0700 [facility] Last Admin: 04/09/17 06:19 Dose: 100 mg Ticagrelor (Brilinta) 60 mg PO BID [facility] Last Admin: 04/09/17 10:20 Dose: 60 mg - Objective Vital Signs: Vital Signs Temperature 97.9 F 04/09/17 10:00 Pulse Rate 70 04/09/17 13:43 Respiratory Rate 18 04/09/17 10:00 Blood Pressure 112/46 04/09/17 10:00 O2 Sat by Pulse Oximetry (%) 98 04/09/17 13:43 Constitutional: Yes: No Distress, Calm Cardiovascular: Yes: Regular Rate and Rhythm Respiratory: Yes: Regular, CTA Bilaterally Gastrointestinal: Yes: Normal Bowel Sounds, Soft Musculoskeletal: Yes: WNL Extremities: Yes: WNL Neurological: Yes: Alert, Oriented Psychiatric: Yes: Alert Labs: CBC, BMP 04/06/17 06:10 04/08/17 06:00 INR, PTT INR 0.99 (0.82-1.09) 03/26/17 06:54 Assessment/Plan dirrhoea abd pain gm positive bacteremia weakness resp failure hypoxia plan continue mgmt as per primary rest as primary
[2017-04-09 15:40] VITALS: BP 122/74; PULSE 84
--- NOTE | 2017-04-09 21:13 | DS ---
Physical Examination Vital Signs: Vital Signs Temperature 97.9 F 04/09/17 14:37 Pulse Rate 84 04/09/17 14:37 Respiratory Rate 22 04/09/17 14:37 Blood Pressure 122/74 04/09/17 14:37 O2 Sat by Pulse Oximetry (%) 98 04/09/17 13:43 Labs: CBC, BMP 04/06/17 06:10 04/08/17 06:00 Discharge Summary Reason For Visit: ABD PAIN/DIARRHEA Current Active Problems Abdominal pain (Acute) Vomiting and diarrhea (Acute) - Instructions Diet, Activity, Other Instructions: see your doctors next week Referrals: Fouzia Luis MD [Primary Care Provider] - Addi Hua MD [Staff Physician] - Disposition: HOME - Home Medications Comprehensive Discharge Medication List: Ambulatory Orders Aspirin [ASA -] 81 mg PO 1700 09/10/14 Gabapentin [Neurontin] 100 mg PO Q8H 09/10/14 Amlodipine Besylate 10 mg PO 169904/23/16 Pantoprazole Sodium [Protonix] 40 mg PO BID 04/23/16 Potassium Chloride 20 meq PO DAILY #30 tablet.er 07/31/16 Acetaminophen [Mapap] 500 mg PO TID 09/29/16 Ascorbic Acid [Vitamin C -] 500 mg PO 169909/29/16 Clotrimazole [Lotrimin -] 1 applic TP BID 09/29/16 Insulin Glargine,Hum.rec.anlog [Lantus Solostar PEN -] 35 units SQ 1699 Loteprednol Etab 0.5% Oph Susp [Lotemax (Nf)] 1 drop OS 169909/29/16 Multivitamins [Multivit ([facility] Formul[facility])] 1 tab PO DAILY 09/29/16 Polyethylene Glycol 3350 [Purelax] 17 gm PO MOWEFR PRN 09/29/16 Atorvastatin Ca [Lipitor] 40 mg PO DAILY 03/26/17 Furosemide [Lasix] 40 mg PO BID 03/26/17 Sennosides [Senna] 8.6 mg PO 1700 03/26/17 Aspirin [ASA -] 81 mg PO DAILY tab.chew 04/06/17 Simethicone [Mylicon -] 80 mg PO QID #120 tab.chew 04/06/17 Sitagliptin Phosphate [Januvia] 100 mg PO DAILY #30 tablet 04/06/17 Ticagrelor [Brilinta] 60 mg PO BID #60 tablet 04/06/17 [facility]
== END 2017-04-09 15:54 | disposition home or self-care (01) | DRG 371 ==
LOC: JER 06:25 → JERBED 12:47 → J5S 16:16 → OBSVTOIN 03-28 20:10 → J5S 03-29 15:57
PROVIDERS: ADMIT Internal Medicine; ATTEND Internal Medicine
DX: A05.4 Foodborne Bacillus cereus intoxication (principal); J96.91 Respiratory failure, unspecified with hypoxia; I50.33 Acute on chronic diastolic (congestive) heart failure; N17.9 Acute kidney failure, unspecified; R78.81 Bacteremia; R19.7 Diarrhea, unspecified; E78.5 Hyperlipidemia, unspecified; I11.0 Hypertensive heart disease with heart failure; E11.9 Type 2 diabetes mellitus without complications; N28.1 Cyst of kidney, acquired; R53.1 Weakness; R10.84 Generalized abdominal pain; R11.10 Vomiting, unspecified; I25.119 Atherosclerotic heart disease of native coronary artery with unspecified angina pectoris; Z98.61 Coronary angioplasty status; E66.9 Obesity, unspecified; Z68.30 Body mass index [BMI] 30.0-30.9, adult
CPT/HCPCS: 36415; 71010-TC; 73060-TC-RT; 74000-TC; 74176-TC; 76775-TC; 80048; 80053; 81003; 82009; 82436; 82570; 82977; 83605; 83690; 83735; 84080; 84133; 84156; 84300; 84484; 85025; 85027; 85610; 85730; 87040; 87045; 87046; 87086; 87177; 87186; 87209; 87324; 87449; 93005; 93010; 93306-TC; 93970-TC; 97116-GP; 97161-GP; 99285-25; G0378; Q9967

== ENCOUNTER 2017-07-24 09:39 | Observation (INO) | payer OTHER, BC ==
[2017-07-24 10:14] VITALS: BMI 31.5
--- NOTE | 2017-07-24 10:29 | PDOC ---
History of Present Illness - General History Source: Patient, Old Records Exam Limitations: No Limitations - History of Present Illness Initial Comments: 07/24/17 10:19 82y/o F h/o HTN, high cholesterol, NIDDM, h/o MS with stent, CAD/CHF presents from group home with substernal chest pain that radiated to her back while seated in chair this morning awaiting transfer to her ophthalmology appointment. The pain was sharp, unlike her prior MS which was very pressure- like. Patient has had a prior episode of chest pain like this in the past, Dr. Lim her arrt technologist is planning to perform a stress test, patient states she has not had repeat catheter or stress since her stent placement 2 years ago. no cough/fever, no injury. chronic leg swelling b/l. 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) Cardiac Disorders: (CAD - cath, stent, MS, n-stemi) COPD: Yes CHF: Yes Diabetes: Yes GI Disorders: Yes (gerd) HTN: Yes Hypercholesterolemia: Yes Other medical history: obesity, gout - Surgical History Cholecystectomy: Yes Orthopedic Surgery: Yes (right hip ORIF 12/2013) - Immunization History Immunization Up to Date: No - Suicide/Smoking/Psychosocial Hx Smoking Status: No Smoking History: Never smoked Have you smoked in the past 12 months: No Number of Cigarettes Smoked Daily: 0 Cigars Per Day: 0 Information on smoking cessation initiated: No Hx Alcohol Use: No Drug/Substance Use Hx: No Substance Use Type: None Hx Substance Use Treatment: No <Jean Claude Brown - Last Filed: 07/24/17 13:47> <Ann Marie Cm - Last Filed: 07/24/17 13:55> - Past Medical History Allergies/Adverse Reactions: Allergies Allergy/AdvReac Type Severity Reaction Status Date / Time No Known Drug Allergies Allergy Verified 03/26/17 07:20 TOMATO SAUCE ONLY Allergy Uncoded 03/26/17 07:20 Home Medications: Ambulatory Orders Acetaminophen [Tylenol] 650 mg PO PRN PRN 07/24/17 Amlodipine Besylate 10 mg PO DAILY 07/24/17 Ammonium Lactate Lotion [Lac-Hydrin 12% Lotion -] 1 applic TP ASDIR 07/24/17 Ascorbate Calcium [Vitamin C] 500 mg PO DAILY 07/24/17 Aspirin [ASA -] 81 mg PO DAILY 07/24/17 Atorvastatin Ca [Lipitor] 40 mg PO HS 07/24/17 Bacitracin - [Bacitracin Topical Ointment -] 1 applic TP DAILY PRN 07/24/17 Furosemide [Lasix -] 40 mg PO ASDIR 07/24/17 Gabapentin 100 mg PO TID 07/24/17 Hydrocortisone Butyrate 15 gm TP BID 07/24/17 Hypromellose 0.5% Opth Soln [Artificial Tears] 1 drop OU QID 07/24/17 Insulin Glargine,Hum.rec.anlog [Lantus (nf)] 35 units SQ HS 07/24/17 Loteprednol Etab 0.5% Oph Susp [Lotemax (Nf)] 1 ml OS TID 07/24/17 Multivitamin [One Daily] 1 each PO DAILY 07/24/17 Pantoprazole Sodium 40 mg PO BID 07/24/17 Polyethylene Glycol 3350 [Purelax] 17 gm PO DAILY 07/24/17 Potassium Chloride 20 meq PO DAILY 07/24/17 Sennosides [Senna] 8.6 mg PO DAILY 07/24/17 Sitagliptin Phosphate [Januvia] 100 mg PO DAILY 07/24/17 Ticagrelor [Brilinta] 60 mg PO BID 07/24/17 Valacyclovir HCl [Valtrex -] 1,000 mg PO BID 07/24/17 Review of Systems - Review of Systems Constitutional: No: Chills, Fever Respiratory: Yes: Shortness of Breath. No: Cough Cardiac (ROS): Yes: Chest Pain, Edema. No: Syncope ABD/GI: No: Nausea, Vomiting Neurological: No: Headache All Other Systems: Reviewed and Negative <Jean Claude Brown - Last Filed: 07/24/17 13:47> *Physical Exam - Vital Signs Last Vital Signs Temp Pulse Resp BP Pulse Ox 98.1 F 78 16 135/66 99 07/24/17 10:06 07/24/17 10:06 07/24/17 10:06 07/24/17 10:06 07/24/17 10:06 - Physical Exam Comments: 07/24/17 10:30 Vital signs normal. Maintained on baseline 2 L nasal cannula GENERAL: elderly woman: awake, alert, and fully oriented, in no acute distress speaking full sentences. HEAD: Normal with no signs of trauma. EYES: PERRL, EOMI, sclera anicteric, conjunctiva clear with no pallor. ENT: oropharynx clear without exudates. Moist mucous membranes. NECK: Normal range of motion, supple without lymphadenopathy, JVD, or masses. LUNGS: Breath sounds equal, slight crackles R base. No wheeze or decreased breath sounds. HEART: Regular rate and rhythm, normal S1 and S2 with 2/6 SE murmur or rub. ABDOMEN: Soft/nondistended. epigastric discomfort to palpation without guarding or rebound. BS nl. No palpable masses. No hepatosplenomegaly. EXTREMITIES: Normal range of motion, 3+ edema b/l, L>R chronically. venous stasis changes. NEUROLOGICAL: Cranial nerves II through XII grossly intact. Normal speech, gait deferred. PSYCH: Normal mood, normal affect SKIN: venous stasis changes, no cellulitis or open wounds <Jean Claude Brown - Last Filed: 07/24/17 13:47> - Vital Signs Last Vital Signs Temp Pulse Resp BP Pulse Ox 98.1 F 78 16 135/66 99 07/24/17 10:06 07/24/17 10:06 07/24/17 10:06 07/24/17 10:06 07/24/17 10:06 <Ann Marie Cm - Last Filed: 07/24/17 13:55> Heart Score/ECG Review #1 ECG reviewed & interpreted by me at: 09:55 General ECG Interpretation: Sinus Rhythm, Normal Rate (75), Normal Intervals ( qtc 433), No acute ischemic changes <Jean Claude Brown - Last Filed: 07/24/17 13:47> ED Treatment Course - LABORATORY CBC & Chemistry Diagram: 07/24/17 10:05 07/24/17 11:20 - RADIOLOGY Radiology Studies Ordered: Category Date Time Status CHEST X-RAY PORTABLE* [RAD] Stat Radiology 07/24/17 10:18 Ordered DUPLEX VASCUL US-2LEGS [US] Stat Ultrasound 07/24/17 10:19 Ordered <Jean Claude Brown - Last Filed: 07/24/17 13:47> - LABORATORY CBC & Chemistry Diagram: 07/24/17 10:05 07/24/17 11:20 - ADDITIONAL ORDERS Additional order review: Laboratory Results 07/24/17 07/24/17 11:40 11:20 PT with INR 11.20 INR 0.99 Sodium 139 Potassium 4.1 Chloride 104 Carbon Dioxide 24 Anion Gap 11 BUN 29 H Creatinine 1.4 H Creat Clearance w eGFR 35.82 Random Glucose 205 H Calcium 8.2 L Magnesium 1.9 Total Bilirubin 0.4 AST 20 D ALT 49 D Alkaline Phosphatase 236 H D Creatine Kinase 41 Troponin I < 0.02 Total Protein 7.0 D Albumin 3.5 D 07/24/17 10:05 RBC 4.19 MCV 87.3 MCHC 33.6 RDW 20.7 H D MPV 8.6 Neutrophils % 78.6 Lymphocytes % 11.0 Monocytes % 6.8 Eosinophils % 3.1 Basophils % 0.5 <Ann Marie Cm - Last Filed: 07/24/17 13:55> Medical Decision Making - Medical Decision Making 07/24/17 10:34 82-year-old female with history of hypertension, diabetes, CAD and history of MS with stent presents with onset of chest pain this morning while at rest, associated shortness of breath. Symptoms resolved after aspirin and nitroglycerin were given by EMS, currently symptom free. Presentation concerning for ACS, seems less likely arrhythmia or dissection, question GI etiology given her history of gastritis and epigastric discomfort. EKG without acute ischemic changes Check labs, chest x-ray Already received aspirin Will need cardiac workup and evaluation with Dr. Murguia 07/24/17 13:47 labs wnl, trop negative. cxr wnl proceed with admission for cardiac workup, accepted for obs tele by Dr. Lee. <Jean Claude Brown - Last Filed: 07/24/17 13:47> *DC/Admit/Observation/Transfer - Discharge Dispostion Admit: Yes <Jean Claude Brown - Last Filed: 07/24/17 13:47> - Attestations Scribe Attestion: 07/24/17 13:54 Documentation prepared by Ann Marie Cm, acting as curator medical museum for Jean Claude Brown MD. <Ann Marie Cm - Last Filed: 07/24/17 13:55> Diagnosis at time of Disposition: CAD (coronary artery disease) Qualifiers: Coronary Disease-Associated Artery/Lesion type: unspecified vessel or lesion type [place] vs. transplanted heart: [place] heart Associated angina: with unstable angina Qualified Code(s): I25.110 - Atherosclerotic heart disease of [place] coronary artery with unstable angina pectoris Chest pain Qualifiers: Chest pain type: precordial pain Qualified Code(s): R07.2 - Precordial pain CHF (congestive heart failure) Qualifiers: Congestive heart failure type: diastolic Congestive heart failure chronicity: chronic Qualified Code(s): I50.32 - Chronic diastolic (congestive) heart failure - Discharge Dispostion Condition at time of disposition: Fair - Referrals Referrals: Fouzia Luis MD [Primary Care Provider] - - Patient Instructions - Post Discharge Activity
--- NOTE | 2017-07-24 11:05 | EKG ---
Test Reason : Blood Pressure : / mmHG Vent. Rate : 075 BPM Atrial Rate : 075 BPM P-R Int : 216 ms QRS Dur : 084 ms QT Int : 388 ms P-R-T Axes : 012 013 051 degrees QTc Int : 433 ms SINUS RHYTHM WITH 1ST DEGREE A-V BLOCK OTHERWISE NORMAL ECG WHEN COMPARED WITH ECG OF 29-MAR-2017 15:38, NON-SPECIFIC CHANGE IN ST SEGMENT IN LATERAL LEADS Confirmed by JOHN CAMPA, LUZ ([id number]) on 07/24/2017 11:05:18 AM Referred By: Confirmed By:LUZ LOPEZ MD
[2017-07-24 11:31] LABS: BASOPHIL 0.5 % (0-2.0); EOSINOPHIL 3.1 % (0-4.5); MCH 29.3 pg (25.7-33.7); MCHC 33.6 g/dl (32.0-36.0); MEAN CELL VOLUME 87.3 fl (80-96); MEAN PLT VOLUME 8.6 fl (7.5-11.1); NEUTROPHILS 78.6 % (42.8-82.8); PLATELET COUNT 214 K/MM3 (134-434); RDW 20.7 % (11.6-15.6); WHITE BLOOD COUNT 9.4 K/mm3 (4.0-10.0)
[2017-07-24 12:00] LABS: ALBUMIN 3.5 g/dl (3.4-5.0); ALK PHOS 236 U/L (45-117); ANION GAP 11 (8-16); BILIRUBIN,TOTAL 0.4 mg/dL (0.2-1.0); CALCIUM 8.2 mg/dL (8.5-10.1); CO2 24 mmol/L (21-32); CPK 41 IU/L (26-192); CREATININE 1.4 mg/dL (0.55-1.02); GLUCOSE,RANDOM 205 mg/dL (74-106); MAGNESIUM 1.9 mg/dL (1.8-2.4); SGOT/AST 20 U/L (15-37); SGPT/ALT 49 U/L (12-78)
[2017-07-24 12:02] LABS: TROPONIN I < 0.02 ng/ml (0.00-0.05)
[2017-07-24 12:31] LABS: INR 0.99 (0.82-1.09); PROTHROMBIN TIME (PATIENT) 11.2 SEC (9.98-11.88)
--- NOTE | 2017-07-24 14:46 | CON.CARD ---
Consult Consult Specialty:: cardio Referred by:: galina Reason for Consultation:: cp - History of Present Illness Chief Complaint: cp History of Present Illness: 82 yo female came to ER for cp. seated in RETIREMENT today around 8 am when noted very strong, "sharp" quality pain in mid-sternum. radiated thru to back, no "tearing" sensation or assctd neuro sx's/presyncope. felt "like bad indigestion", and she has frequent GERD she says. no assctd LH, sob, diaph. lasted about 1 hr then EMS arrived and gave SL nitro x 1--about 10-15 min later it decr'd from 10/10 intensity to 5 of 10. then resolved over several more minutes while en route to ER. no more pain. + assctd slight sour taste in mouth and nauseated--thought she was going to throw up ? pain was worse with certain movements, not pleuritic had eaten small amt of faria and eggs (few bites) prior. 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: Peripheral Neuropathy Cardio/Vascular: Yes: CAD, CHF, HTN, MD (10/02/2015 resulting in a single stent insertion) Gastrointestinal: Yes: Diverticulosis, Peptic Ulcer Disease, Other (colon polyp) Hepatobiliary: Yes: Cholecystitis (prior cholecystitis s/p perc roxana tube from 11/2013-02/2014), Choledocholithiasis (resolved spontaneously) Renal/: Yes: Renal Failure (on prior admission- resolved) Rheumatology: Yes: Gout Endocrine: Yes: Diabetes Mellitus (c/b peripheral neuropathy) Dermatology: Yes: 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 Left Ankle Fracture x2 - Past Surgical History Past Surgical History: Yes: Cholecystectomy (Lap Choly), Colonoscopy, Hysterectomy (TAHBSO), Tonsillectomy - Alcohol/Substance Use Hx Alcohol Use: No History of Substance Use: reports: None - Smoking History Smoking history: Never smoked Have you smoked in the past 12 months: No Aproximately how many cigarettes per day: 0 - Social History Usual Living Arrangement: Fdc ADL: Support Services Occupation: Retired [employer]er History of Recent Travel: No Home Medications - Allergies Allergies/Adverse Reactions: Allergies Allergy/AdvReac Type Severity Reaction Status Date / Time No Known Drug Allergies Allergy Verified 03/26/17 07:20 TOMATO SAUCE ONLY Allergy Uncoded 03/26/17 07:20 - Home Medications Home Medications: Ambulatory Orders Acetaminophen [Tylenol] 650 mg PO PRN PRN 07/24/17 Amlodipine Besylate 10 mg PO DAILY 07/24/17 Ammonium Lactate Lotion [Lac-Hydrin 12% Lotion -] 1 applic TP ASDIR 07/24/17 Ascorbate Calcium [Vitamin C] 500 mg PO DAILY 07/24/17 Aspirin [ASA -] 81 mg PO DAILY 07/24/17 Atorvastatin Ca [Lipitor] 40 mg PO HS 07/24/17 Bacitracin - [Bacitracin Topical Ointment -] 1 applic TP DAILY PRN 07/24/17 Furosemide [Lasix -] 40 mg PO ASDIR 07/24/17 Gabapentin 100 mg PO TID 07/24/17 Hydrocortisone Butyrate 15 gm TP BID 07/24/17 Hypromellose 0.5% Opth Soln [Artificial Tears] 1 drop OU QID 07/24/17 Insulin Glargine,Hum.rec.anlog [Lantus (nf)] 35 units SQ HS 07/24/17 Loteprednol Etab 0.5% Oph Susp [Lotemax (Nf)] 1 ml OS TID 07/24/17 Multivitamin [One Daily] 1 each PO DAILY 07/24/17 Pantoprazole Sodium 40 mg PO BID 07/24/17 Polyethylene Glycol 3350 [Purelax] 17 gm PO DAILY 07/24/17 Potassium Chloride 20 meq PO DAILY 07/24/17 Sennosides [Senna] 8.6 mg PO DAILY 07/24/17 Sitagliptin Phosphate [Januvia] 100 mg PO DAILY 07/24/17 Ticagrelor [Brilinta] 60 mg PO BID 07/24/17 Valacyclovir HCl [Valtrex -] 1,000 mg PO BID 07/24/17 Family Disease History - Family Disease History Family Disease History: Diabetes: Sister ( of CLOUD rt cirrhosis ), Heart Disease: Father ( at age 33 with MD), Brother ( after CABG), CA: Mother ( of Ovarian cancer at age 57), Other: Sister Review of Systems - Review of Systems Constitutional: denies: Chills, Fever Eyes: denies: Eye Pain HENT: denies: Nasal Congestion Neck: denies: Stiffness Cardiovascular: denies: Palpitations Respiratory: denies: Orthopnea, PND Gastrointestinal: denies: Diarrhea, Rectal Bleeding Genitourinary: denies: Burning, Hematuria Musculoskeletal: denies: Muscle Pain Integumentary: denies: Rash Neurological: denies: Numbness, Seizure, Syncope Endocrine: denies: Excessive Sweating Hematology/Lymphatic: denies: Excessive Bleeding Vital Signs: Vital Signs Temperature 98.1 F 07/24/17 10:06 Pulse Rate 78 07/24/17 10:06 Respiratory Rate 16 07/24/17 10:06 Blood Pressure 135/66 07/24/17 10:06 O2 Sat by Pulse Oximetry (%) 99 07/24/17 10:06 Constitutional: Yes: No Distress, Obese Eyes: No: Sclera Icterus HENT: No: Nasal Congestion Neck: No: Decreased ROM Respiratory: Yes: CTA Bilaterally. No: Accessory Muscle Use, Rales, Wheezes Gastrointestinal: Yes: Normal Bowel Sounds. No: Distention, Hepatomegaly, Palpable Mass, Tenderness Cardiovascular: Yes: Regular Rate and Rhythm JVD: No Carotid Bruit: No PMI: Non-Displaced Heart Sounds: Yes: S1, S2. No: Gallop Murmur: No: Systolic Murmur, Diastolic Murmur Musculoskeletal: Yes: Other (No kyphosis) Extremities: No: Cold, Cyanosis Edema: Yes (1+ pretibs) Peripheral Pulses: 2+ Left Carotid, 2+ Right Carotid, 2+ Left Doralis Pedis, 2+ Right Dorsalis Pedis Integumentary: No: Jaundice Neurological: Yes: Alert, Oriented (x3) Psychiatric: No: Agitated - Other Data Labs, Other Data: CBC, BMP 07/24/17 10:05 07/24/17 11:20 INR, PTT INR 0.99 (0.82-1.09) 07/24/17 11:40 Troponin, BNP 07/24/17 11:20 Troponin I < 0.02 Troponin, BNP 07/24/17 11:20 Troponin I < 0.02 Laboratory Tests 07/24/17 07/24/17 10:05 11:20 WBC 9.4 Hgb 12.3 Plt Count 214 Sodium 139 Potassium 4.1 Carbon Dioxide 24 BUN 29 H Creatinine 1.4 H AST 20 D ALT 49 D Creatine Kinase 41 Troponin I < 0.02 Assessment/Plan [facility] 10/12: DAYANA to mLAD, PTCA of D1. residual 50-60% mRCA. OM1 chronically occluded fills via LAD collaterals Echo 04/12: TDS. normal overall LVSF, can't r/o RWMAs. mild-mod RVE with mild hypo. mild-mod TR. RVSP 30-40 Echo 08/11: nl LV, nl RV, mild LAE, valve fxn WNL CXR: clear lungs/pleura ECG: NSR, normal axis 0.[address] elev inferior leads, NSST-T septal leads--all were present on prior 10/12 chest pain, atypical: -hi risk pt with prior ACS and coronary stent, as below -trop neg x1--f/u serial -ECG non-ischemic -sx's strongly suggestive of GERD, possibly with esophageal spasm (response to SL nitro was equivocal--see HPI) -no risk factors for aorta dissection and clinical picture (with no hi or low bp 's either) not suggestive -given pt is hi risk will do inpatient pharm MPI tomorrow am prior to discharge -GERD tx per pmd -defer BB for now per prior paul plan CAD, prior h/o ACS (UA presentation) with PCI of LAD: -residual moderate angiographic stenosis of mRCA, and WHEEL POLISHER of OM fed by LAD collaterals -at that time, initial ecg suspicious for anterolateral STEMI--resolved when CP resolved after NTG -toprol was stopped due to low bp by dr miller -on ASA, brilinta (90 bid), atorva 40 at home--cont same chronic diast CHF, venous ins'y/edema: -on lasix 40 bid at home -wt 175 lbs in office 07/17 (range 178-181) -of note is RV dilation and mild hypo on last echo--? 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 should have sleep study as outpt if not previously done, and consider CPAP or at least nocturnal O2 if evidence of signif hypoxia--dr miller is planning rpt office echo once she is better diuresed HTN: -bp well controlled -cont home amlodipine 10mg DM: -per pmd CKD: -baseline creat ranges 1-1.6 -renal fxn stable here
[2017-07-24] MEDS ORDERED: ACETAMINOPHEN 325 MG TABLET (FP) PO PRN (17:22)
[2017-07-24] MEDS ORDERED: FUROSEMIDE 40 MG TABLET (FP) PO SCH (17:30)
[2017-07-24] MEDS ORDERED: BACITRACIN 15 GM TUBE TOPICAL OINTMENT TP PRN (17:32)
[2017-07-24] MEDS: AMMONIUM LACTATE 12% LOTION 225 GM BOTTLE TP SCH (17:34)
[2017-07-24] MEDS ORDERED: NITROGLYCERIN SUBLINGUAL 1/200 0.3 MG BTL SL PRN (17:35)
[2017-07-24] MEDS ORDERED: FUROSEMIDE 40 MG TABLET (FP) ONE (17:56)
[2017-07-24 19:58] LABS: CPK 44 IU/L (26-192); TROPONIN I < 0.02 ng/ml (0.00-0.05)
[2017-07-24] MEDS: ARTIFICIAL TEARS (POLYVINYL ALCOHOL 1.4%) OPTH DROPS OU SCH (20:52)
[2017-07-24] MEDS ORDERED: [UNRECOGNIZED DRUG - OTHER] TP SCH (22:00)
[2017-07-24] MEDS: HEPARIN NA (PORCINE) 5,000 UNITS/ML 1ML VIAL SQ SCH (23:00)
[2017-07-24] MEDS: valACYclovir HCL 500 MG TABLET (FP) PO SCH (23:00)
[2017-07-24] MEDS: TICAGRELOR 60 MG TABLET PO SCH (23:00)
[2017-07-24] MEDS: INSULIN DETEMIR 100 UNITS/ML MDV SQ SCH (23:00)
[2017-07-24] MEDS: PANTOPRAZOLE 40 MG TABLET (FP) PO SCH (23:00)
[2017-07-24] MEDS: GABAPENTIN 100 MG CAPSULE (FP) PO SCH (23:00)
[2017-07-24] MEDS: ATORVASTATIN CA 40 MG TABLET (FP) PO SCH (23:00)
[2017-07-24] MEDS: HYDROCORTISONE 2.5% TOPICAL CREAM 30 GM TUBE TP SCH (23:00)
[2017-07-24] MEDS ORDERED: INSULIN DETEMIR 100 UNITS/ML MDV SQ ONE (23:56)
[2017-07-25] MEDS: ARTIFICIAL TEARS (POLYVINYL ALCOHOL 1.4%) OPTH DROPS OU SCH ×5 (00:13→22:05)
[2017-07-25] MEDS ORDERED: HEMOQUE TEST 1 EACH EACH ONE (06:48)
[2017-07-25] MEDS: GABAPENTIN 100 MG CAPSULE (FP) PO SCH ×3 (07:00→22:08)
[2017-07-25] MEDS: sitaGLIPtin PHOSPHATE 50 MG TABLET PO SCH (07:01)
[2017-07-25 07:02] LABS: MCH 29.4 pg (25.7-33.7); MCHC 33.8 g/dl (32.0-36.0); MEAN CELL VOLUME 86.9 fl (80-96); MEAN PLT VOLUME 8.7 fl (7.5-11.1); PLATELET COUNT 220 K/MM3 (134-434); RDW 20.7 % (11.6-15.6); WHITE BLOOD COUNT 8.4 K/mm3 (4.0-10.0)
[2017-07-25 07:28] LABS: ALBUMIN 3.6 g/dl (3.4-5.0); ANION GAP 11 (8-16); CHOLESTEROL 140 mg/dL (50-200); CO2 27 mmol/L (21-32); GLUCOSE,RANDOM 171 mg/dL (74-106); SGOT/AST 17 U/L (15-37)
[2017-07-25 07:32] LABS: ALK PHOS 220 U/L (45-117); BILIRUBIN,TOTAL 0.5 mg/dL (0.2-1.0); CALCIUM 8.9 mg/dL (8.5-10.1); CREATININE 1.3 mg/dL (0.55-1.02); SGPT/ALT 42 U/L (12-78); TOT PROT 6.7 g/dl (6.4-8.2); TROPONIN I < 0.02 ng/ml (0.00-0.05)
--- NOTE | 2017-07-25 07:52 | HP ---
Admitting History and Physical - Admission History of Present Illness: 82y/o F h/o HTN, high cholesterol, NIDDM, h/o CA with stent, CAD/CHF presents from [facility] with substernal chest pain that radiated to her back while seated in chair this morning awaiting transfer to her ophthalmology appointment. The pain was sharp, unlike her prior CA which was very pressure- like. 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 no cough/fever, no injury. chronic leg swelling b/l. - Past Medical History DIRECTOR CLINICAL APPLICATIONS: Yes: Peripheral Neuropathy Cardiovascular: Yes: CAD, CHF, HTN, CA (10/02/2015 resulting in a single stent insertion) Gastrointestinal: Yes: Diverticulosis, Peptic Ulcer Disease, Other (colon polyp) Hepatobiliary: Yes: Cholecystitis (prior cholecystitis s/p perc roxana tube from 11/2013-02/2014), Choledocholithiasis (resolved spontaneously) Renal/: Yes: Renal Failure (on prior admission- resolved) Heme/Onc: No: Anemia, B12 Deficiency, Bleeding Disorder, Cancer, Current Chemotherapy, Current Radiation Therapy, Hemochromatosis, Hypercoaguable State, Myeloproliferative Synd, Sickle Cell Disease, Sickle Cell Trait, Thrombocytopenia, Other Rheumatology: Yes: Gout Endocrine: Yes: Diabetes Mellitus (c/b peripheral neuropathy) Dermatology: Yes: 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, 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) - Past Surgical History Past Surgical History: Yes: Cholecystectomy (Lap Choly), Colonoscopy, Hysterectomy (TAHBSO), Tonsillectomy - Smoking History Smoking history: Never smoked Have you smoked in the past 12 months: No Aproximately how many cigarettes per day: 0 - Alcohol/Substance Use Hx Alcohol Use: No History of Substance Use: reports: None - Social History ADL: Support Services 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 History of Recent Travel: No Home Medications - Allergies Allergies/Adverse Reactions: Allergies Allergy/AdvReac Type Severity Reaction Status Date / Time No Known Drug Allergies Allergy Verified 03/26/17 07:20 TOMATO SAUCE ONLY Allergy Uncoded 03/26/17 07:20 - Home Medications Home Medications: Ambulatory Orders Amlodipine Besylate 10 mg PO DAILY 07/24/17 Ammonium Lactate Lotion [Lac-Hydrin 12% Lotion -] 1 applic TP ASDIR 07/24/17 Ascorbate Calcium [Vitamin C] 500 mg PO DAILY 07/24/17 Aspirin [ASA -] 81 mg PO DAILY 07/24/17 Atorvastatin Ca [Lipitor] 40 mg PO DAILY 07/24/17 Bacitracin - [Bacitracin Topical Ointment -] 1 applic TP DAILY PRN 07/24/17 Furosemide [Lasix -] 40 mg PO ASDIR 07/24/17 Gabapentin 300 mg PO TID 07/24/17 Hydrocortisone Butyrate 0 gm TP BID 07/24/17 Hypromellose 0.5% Opth Soln [Artificial Tears] 1 drop OU QID 07/24/17 Insulin Glargine,Hum.rec.anlog [Lantus (nf)] 35 units SQ HS 07/24/17 Loteprednol Etab 0.5% Oph Susp [Lotemax (Nf)] 1 ml OS TID 07/24/17 Multivitamin [One Daily] 1 each PO DAILY 07/24/17 Pantoprazole Sodium 40 mg PO BID 07/24/17 Polyethylene Glycol 3350 [Purelax] 17 gm PO DAILY PRN 07/24/17 Potassium Chloride 20 meq PO DAILY 07/24/17 Sennosides [Senna] 8.6 mg PO TUTHSA 07/24/17 Sitagliptin Phosphate [Januvia] 100 mg PO DAILY 07/24/17 Ticagrelor [Brilinta] 60 mg PO BID 07/24/17 Valacyclovir HCl [Valtrex -] 1,000 mg PO BID 07/24/17 Acetaminophen [Tylenol] 650 mg PO BID 07/25/17 Family Disease History - Family Disease History Family Disease History: Diabetes: Sister ( of CLOUD rt cirrhosis ), Heart Disease: Father ( at age 33 with CA), Brother ( after CABG), CA: Mother ( of Ovarian cancer at age 57), Other: Sister Review of Systems - Review of Systems Cardiovascular: reports: Chest Pain, Edema Respiratory: reports: SOB on Exertion Gastrointestinal: denies: Abdominal Pain Genitourinary: reports: No Symptoms Neurological: reports: No Symptoms Physical Examination Vital Signs: Vital Signs Temperature 98.1 F 07/24/17 18:04 Pulse Rate 79 07/24/17 18:04 Respiratory Rate 18 07/24/17 18:04 Blood Pressure 141/60 07/24/17 18:04 O2 Sat by Pulse Oximetry (%) 98 07/24/17 18:04 Cardiovascular: Yes: Murmur, S1, S2 Respiratory: Yes: Regular, CTA Bilaterally Gastrointestinal: Yes: Normal Bowel Sounds, Soft, Abdomen, Obese Edema: Yes Peripheral Pulses: Left Femoral: 3+, Right Femoral: 2+ Neurological: Yes: Alert, Oriented Labs: CBC, BMP 07/25/17 06:25 07/25/17 06:25 Imaging - Results Chest X-ray: Report Reviewed (NAD) Ultrasound: Report Reviewed (NO DVT) Problem List - Problems (1) Chest pain Assessment/Plan: Laboratory Tests 07/24/17 07/24/17 07/25/17 11:20 19:00 06:25 Troponin I < 0.02 < 0.02 < 0.02 SAME MEDS STRESS TEST TODAY Code(s): R07.9 - CHEST PAIN, UNSPECIFIED Qualifiers: Chest pain type: precordial pain Qualified Code(s): R07.2 - Precordial pain (2) CHF (congestive heart failure) Assessment/Plan: LASIX DAILY ADD [place] Code(s): I50.9 - HEART FAILURE, UNSPECIFIED Qualifiers: Congestive heart failure type: diastolic Congestive heart failure chronicity: chronic Qualified Code(s): I50.32 - Chronic diastolic (congestive ) heart failure (3) Diabetes 1.5, managed as type 2 Assessment/Plan: SAME MEDS BGM ENDO Code(s): E13.9 - OTHER SPECIFIED DIABETES MELLITUS WITHOUT COMPLICATIONS (4) Edema Assessment/Plan: MAYBE DUE TO NORVASC AND FAILURE LASIX DECREASE NORVASC TO 5 Code(s): R60.9 - EDEMA, UNSPECIFIED
[2017-07-25] MEDS ORDERED: amLODIPine BESYLATE 10 MG TABLET (FP) PO SCH (10:00)
[2017-07-25] MEDS ORDERED: sitaGLIPtin PHOSPHATE 100 MG TABLET (FP) PO SCH (10:00)
[2017-07-25] MEDS: HYDROCORTISONE 2.5% TOPICAL CREAM 30 GM TUBE TP SCH ×2 (10:00→22:05)
[2017-07-25] MEDS ORDERED: REGADENOSON 0.4 MG/5 ML PRE-FILLED SYRINGE IVPUSH ONE ×2 (10:00→11:19)
[2017-07-25] MEDS ORDERED: RAMIPRIL 5 MG CAPSULE (FP) ONE (10:50)
[2017-07-25] MEDS: AMMONIUM LACTATE 12% LOTION 225 GM BOTTLE TP SCH (14:24)
[2017-07-25] MEDS: HEPARIN NA (PORCINE) 5,000 UNITS/ML 1ML VIAL SQ SCH ×2 (14:26→22:04)
[2017-07-25] MEDS: PANTOPRAZOLE 40 MG TABLET (FP) PO SCH ×2 (14:26→22:04)
[2017-07-25] MEDS: TICAGRELOR 60 MG TABLET PO SCH ×2 (14:26→22:10)
[2017-07-25] MEDS: valACYclovir HCL 500 MG TABLET (FP) PO SCH ×2 (14:27→22:07)
[2017-07-25] MEDS: POTASSIUM CHLORIDE TABS 20 MEQ TABLET.ER (FP) PO SCH (14:27)
[2017-07-25] MEDS: ASPIRIN 81 MG CHEWABLE TABLETS PO SCH (14:27)
[2017-07-25] MEDS: FUROSEMIDE 40 MG TABLET (FP) PO SCH (14:27)
[2017-07-25] MEDS: RAMIPRIL 5 MG CAPSULE (FP) PO SCH (14:27)
[2017-07-25] MEDS: amLODIPine BESYLATE 5 MG TABLET (FP) PO SCH (14:28)
[2017-07-25] MEDS: POLYETHYLENE GLYCOL 3350 119 GM BTL PO SCH (14:28)
[2017-07-25] MEDS: ASCORBIC ACID 500 MG TABLET (FP) PO SCH (14:29)
[2017-07-25] MEDS: SENNOSIDES 8.6MG TABLET (FP) PO SCH (14:29)
[2017-07-25] MEDS: MULTIVITAMINS (DAILY MVI) TABLET (FP) PO SCH (14:29)
[2017-07-25] MEDS ORDERED: INSULIN (NOVOLOG) ASPART 100 UNITS/ML 10ML VIAL ONE (17:20)
[2017-07-25] MEDS: INSULIN DETEMIR 100 UNITS/ML MDV SQ SCH ×2 (18:26→22:15)
[2017-07-25] MEDS: ATORVASTATIN CA 40 MG TABLET (FP) PO SCH (22:04)
[2017-07-26] MEDS: sitaGLIPtin PHOSPHATE 50 MG TABLET PO SCH (06:29)
[2017-07-26] MEDS: GABAPENTIN 100 MG CAPSULE (FP) PO SCH ×3 (06:30→21:33)
--- NOTE | 2017-07-26 08:40 | PN ---
Progress Note, Physician History of Present Illness: NO CP - Current Medication List Current Medications: Active Medications Acetaminophen (Tylenol -) 650 mg PO PRN PRN PRN Reason: PAIN Amlodipine Besylate (Norvasc -) 5 mg PO DAILY [facility] Last Admin: 07/25/17 14:28 Dose: 5 mg Artificial Tears (Artificial Tears) 1 drop OU QID [facility] Last Admin: 07/25/17 22:05 Dose: Not Given Ascorbic Acid (Vitamin C -) 500 mg PO DAILY [facility] Last Admin: 07/25/17 14:29 Dose: 500 mg Aspirin (Asa -) 81 mg PO DAILY [facility] Last Admin: 07/25/17 14:27 Dose: 81 mg Atorvastatin Calcium (Lipitor -) 40 mg PO HS [facility] Last Admin: 07/25/17 22:04 Dose: 40 mg Bacitracin (Bacitracin -) 1 applic TP DAILY PRN PRN Reason: WOUND CARE Furosemide (Lasix -) 40 mg PO DAILY [facility] Last Admin: 07/25/17 14:27 Dose: 40 mg Gabapentin (Neurontin -) 100 mg PO TID [facility] Last Admin: 07/26/17 06:30 Dose: 100 mg Heparin Sodium (Porcine) (Heparin -) 5,000 unit SQ BID [facility] Last Admin: 07/25/17 22:04 Dose: 5,000 unit Hydrocortisone (Anusol 2.5% Hc Cream -) 1 applic TP BID [facility] Last Admin: 07/25/17 22:05 Dose: 1 gm Insulin Detemir (Levemir Vial) 35 units SQ HS [facility] Last Admin: 07/25/17 22:15 Dose: 35 units Lactic Acid (Lac-Hydrin 12) 1 applic TP DAILY [facility] Last Admin: 07/25/17 14:24 Dose: 1 applic Multivitamins/Minerals/Vitamin C (Tab-A-Vit -) 1 tab PO DAILY [facility] Last Admin: 07/25/17 14:29 Dose: 1 tab Nitroglycerin (Nitrostat -) 0.3 mg SL Q5M PRN PRN Reason: FOR CHEST PAIN Non-Formulary Medication (Loteprednol Etab 0.5% Oph Susp [Lotemax (Nf)]) 1 ml OS TID [facility] Pantoprazole Sodium (Protonix -) 40 mg PO BID [facility] Last Admin: 07/25/17 22:04 Dose: 40 mg Polyethylene Glycol (Miralax (For Daily Use) -) 17 gm PO DAILY [facility] Last Admin: 07/25/17 14:28 Dose: Not Given Potassium Chloride (K-Dur -) 20 meq PO DAILY [facility] Last Admin: 07/25/17 14:27 Dose: 20 meq Ramipril (Altace -) 10 mg PO DAILY [facility] Last Admin: 07/25/17 14:27 Dose: 10 mg Senna (Senna -) 1 tab PO DAILY [facility] Last Admin: 07/25/17 14:29 Dose: Not Given Sitagliptin Phosphate (Januvia -) 50 mg PO DAILY@0700 [facility] Last Admin: 07/26/17 06:29 Dose: 50 mg Ticagrelor (Brilinta) 60 mg PO BID [facility] Last Admin: 07/25/17 22:10 Dose: 60 mg Valacyclovir HCl (Valtrex -) 1,000 mg PO BID [facility] Last Admin: 07/25/17 22:07 Dose: 1,000 mg - Objective Vital Signs: Vital Signs Temperature 97.7 F 07/26/17 06:11 Pulse Rate 75 07/26/17 06:11 Respiratory Rate 20 07/26/17 06:11 Blood Pressure 102/50 07/26/17 06:11 O2 Sat by Pulse Oximetry (%) 98 07/26/17 01:00 Cardiovascular: Yes: S1, S2 Respiratory: Yes: Regular, CTA Bilaterally Gastrointestinal: Yes: Normal Bowel Sounds, Soft Edema: Yes Neurological: Yes: Alert, Oriented Labs: CBC, BMP 07/25/17 06:25 07/25/17 06:25 INR, PTT INR 0.99 (0.82-1.09) 07/24/17 11:40 Problem List - Problems (1) Chest pain Assessment/Plan: Laboratory Tests 07/24/17 07/24/17 07/25/17 11:20 19:00 06:25 Troponin I < 0.02 < 0.02 < 0.02 SAME MEDS STRESS TEST --MODERATE SIZE ISCHEMIA--D/W PT--FOR POSSIBLE CATH Code(s): R07.9 - CHEST PAIN, UNSPECIFIED Qualifiers: Chest pain type: precordial pain Qualified Code(s): R07.2 - Precordial pain (2) CHF (congestive heart failure) Assessment/Plan: LASIX DAILY ADD [place] Code(s): I50.9 - HEART FAILURE, UNSPECIFIED Qualifiers: Congestive heart failure type: diastolic Congestive heart failure chronicity: chronic Qualified Code(s): I50.32 - Chronic diastolic (congestive ) heart failure (3) Diabetes 1.5, managed as type 2 Assessment/Plan: SAME MEDS BGM ENDO Code(s): E13.9 - OTHER SPECIFIED DIABETES MELLITUS WITHOUT COMPLICATIONS (4) Edema Assessment/Plan: MAYBE DUE TO NORVASC AND FAILURE RESPONDING TO LASIX DECREASE NORVASC TO 5 Code(s): R60.9 - EDEMA, UNSPECIFIED
--- NOTE | 2017-07-26 09:05 | PN ---
Progress Note (short form) - Note Progress Note: S: No cp, palps, dizziness, sob. Current Medications Acetaminophen (Tylenol -) 650 mg PO PRN PRN PRN Reason: PAIN Amlodipine Besylate (Norvasc -) 5 mg PO DAILY [facility] Last Admin: 07/25/17 14:28 Dose: 5 mg Artificial Tears (Artificial Tears) 1 drop OU QID [facility] Last Admin: 07/25/17 22:05 Dose: Not Given Ascorbic Acid (Vitamin C -) 500 mg PO DAILY [facility] Last Admin: 07/25/17 14:29 Dose: 500 mg Aspirin (Asa -) 81 mg PO DAILY [facility] Last Admin: 07/25/17 14:27 Dose: 81 mg Atorvastatin Calcium (Lipitor -) 40 mg PO HS [facility] Last Admin: 07/25/17 22:04 Dose: 40 mg Bacitracin (Bacitracin -) 1 applic TP DAILY PRN PRN Reason: WOUND CARE Furosemide (Lasix -) 40 mg PO DAILY [facility] Last Admin: 07/25/17 14:27 Dose: 40 mg Gabapentin (Neurontin -) 100 mg PO TID [facility] Last Admin: 07/26/17 06:30 Dose: 100 mg Heparin Sodium (Porcine) (Heparin -) 5,000 unit SQ BID [facility] Last Admin: 07/25/17 22:04 Dose: 5,000 unit Hydrocortisone (Anusol 2.5% Hc Cream -) 1 applic TP BID [facility] Last Admin: 07/25/17 22:05 Dose: 1 gm Insulin Detemir (Levemir Vial) 35 units SQ HS [facility] Last Admin: 07/25/17 22:15 Dose: 35 units Lactic Acid (Lac-Hydrin 12) 1 applic TP DAILY [facility] Last Admin: 07/25/17 14:24 Dose: 1 applic Multivitamins/Minerals/Vitamin C (Tab-A-Vit -) 1 tab PO DAILY [facility] Last Admin: 07/25/17 14:29 Dose: 1 tab Nitroglycerin (Nitrostat -) 0.3 mg SL Q5M PRN PRN Reason: FOR CHEST PAIN Non-Formulary Medication (Loteprednol Etab 0.5% Oph Susp [Lotemax (Nf)]) 1 ml OS TID [facility] Pantoprazole Sodium (Protonix -) 40 mg PO BID [facility] Last Admin: 07/25/17 22:04 Dose: 40 mg Polyethylene Glycol (Miralax (For Daily Use) -) 17 gm PO DAILY [facility] Last Admin: 07/25/17 14:28 Dose: Not Given Potassium Chloride (K-Dur -) 20 meq PO DAILY [facility] Last Admin: 07/25/17 14:27 Dose: 20 meq Ramipril (Altace -) 10 mg PO DAILY [facility] Last Admin: 07/25/17 14:27 Dose: 10 mg Senna (Senna -) 1 tab PO DAILY [facility] Last Admin: 07/25/17 14:29 Dose: Not Given Sitagliptin Phosphate (Januvia -) 50 mg PO DAILY@0700 [facility] Last Admin: 07/26/17 06:29 Dose: 50 mg Ticagrelor (Brilinta) 60 mg PO BID [facility] Last Admin: 07/25/17 22:10 Dose: 60 mg Valacyclovir HCl (Valtrex -) 1,000 mg PO BID [facility] Last Admin: 07/25/17 22:07 Dose: 1,000 mg Vital Signs - 24 hr 07/25/17 07/25/17 07/25/17 09:31 14:23 16:30 Temperature 98.2 F 98.0 F Pulse Rate 70 Pulse Rate [ 79 Right Radial] Respiratory 18 18 Rate Blood Pressure 137/66 115/60 Blood Pressure 131/56 [Left Arm] O2 Sat by Pulse 98 Oximetry (%) Constitutional: Yes: No Distress, Obese Eyes: No: Sclera Icterus HENT: No: Nasal Congestion Neck: No: Decreased ROM Respiratory: Yes: CTA Bilaterally. No: Accessory Muscle Use, Rales, Wheezes Gastrointestinal: Yes: Normal Bowel Sounds. No: Distention, Hepatomegaly, Palpable Mass, Tenderness Cardiovascular: Yes: Regular Rate and Rhythm JVD: No Carotid Bruit: No PMI: Non-Displaced Heart Sounds: Yes: S1, S2. No: Gallop Murmur: No: Systolic Murmur, Diastolic Murmur Musculoskeletal: Yes: Other (No kyphosis) Extremities: No: Cold, Cyanosis Edema: Yes (1+ pretibs) Peripheral Pulses: 2+ Left Carotid, 2+ Right Carotid, 2+ Left Doralis Pedis, 2+ Right Dorsalis Pedis Integumentary: No: Jaundice Neurological: Yes: Alert, Oriented (x3) Psychiatric: No: Agitated - Other Data Labs, Other Data: Laboratory Tests 07/25/17 07/25/17 07/25/17 06:25 06:25 06:25 WBC 8.4 Hgb 12.0 Plt Count 220 Sodium 141 Potassium 3.9 Creatinine 1.3 H Hemoglobin A1c % 8.9 H D Total Bilirubin 0.5 D AST 17 ALT 42 Alkaline Phosphatase 220 H Troponin I < 0.02 Albumin 3.6 Triglycerides 241 H D Cholesterol 140 D Total LDL Cholesterol 81 HDL Cholesterol 36 L Stress test + for moderate intensity ischemia of posterior and lateral wall. ? TID Assessment/Plan [facility] 10/12: DAYANA to mLAD, PTCA of D1. residual 50-60% mRCA. OM1 chronically occluded fills via LAD collaterals Echo 04/12: TDS. normal overall LVSF, can't r/o RWMAs. mild-mod RVE with mild hypo. mild-mod TR. RVSP 30-40 Echo 08/11: nl LV, nl RV, mild LAE, valve fxn WNL CXR: clear lungs/pleura ECG: NSR, normal axis 0.[address] elev inferior leads, NSST-T septal leads--all were present on prior 10/12 chest pain, atypical: -hi risk pt with prior ACS and coronary stent, as below -trop neg x1--f/u serial -ECG non-ischemic -no risk factors for aorta dissection and clinical picture (with no hi or low bp 's either) not suggestive -sx's strongly suggestive of GERD, possibly with esophageal spasm (response to SL nitro was equivocal--see HPI) vs. MSK (++ reproducible to palpation). Stress test positive for ischemia in area of patient's known residual disease. Plan for echo tomorrow and d/w primary outpatient scheduler regarding risk/benefit of cath. If TID present than will likely pursue cath. Patient amenable. -GERD tx per pmd -defer BB for now per prior paul plan CAD, prior h/o ACS (UA presentation) with PCI of LAD: -residual moderate angiographic stenosis of mRCA, and [employer] of OM fed by LAD collaterals -at that time, initial ecg suspicious for anterolateral STEMI--resolved when CP resolved after NTG -toprol was stopped due to low bp by dr miller -on ASA, brilinta (90 bid), atorva 40 at home--cont same chronic diast CHF, venous ins'y/edema: -on lasix 40 bid at home -wt 175 lbs in office 07/17 (range 178-181) -of note is RV dilation and mild hypo on last echo--? 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 should have sleep study as outpt if not previously done, and consider CPAP or at least nocturnal O2 if evidence of signif hypoxia--dr miller is planning rpt office echo once she is better diuresed HTN: -bp well controlled -cont home amlodipine 10mg DM: -per pmd CKD: -baseline creat ranges 1-1.6 -renal fxn stable here
[2017-07-26] MEDS ORDERED: PT OWN MED DRAWER 7, Y5N ONE (09:30)
[2017-07-26] MEDS: SENNOSIDES 8.6MG TABLET (FP) PO SCH ×2 (09:43→09:49)
[2017-07-26] MEDS: ASPIRIN 81 MG CHEWABLE TABLETS PO SCH (09:43)
[2017-07-26] MEDS: RAMIPRIL 5 MG CAPSULE (FP) PO SCH (09:43)
[2017-07-26] MEDS: POTASSIUM CHLORIDE TABS 20 MEQ TABLET.ER (FP) PO SCH (09:44)
[2017-07-26] MEDS: PANTOPRAZOLE 40 MG TABLET (FP) PO SCH ×2 (09:44→21:33)
[2017-07-26] MEDS: amLODIPine BESYLATE 5 MG TABLET (FP) PO SCH (09:44)
[2017-07-26] MEDS: MULTIVITAMINS (DAILY MVI) TABLET (FP) PO SCH (09:44)
[2017-07-26] MEDS: HEPARIN NA (PORCINE) 5,000 UNITS/ML 1ML VIAL SQ SCH ×2 (09:44→21:37)
[2017-07-26] MEDS: FUROSEMIDE 40 MG TABLET (FP) PO SCH (09:44)
[2017-07-26] MEDS: ASCORBIC ACID 500 MG TABLET (FP) PO SCH (09:44)
[2017-07-26] MEDS: HYDROCORTISONE 2.5% TOPICAL CREAM 30 GM TUBE TP SCH ×2 (09:45→21:38)
[2017-07-26] MEDS: ARTIFICIAL TEARS (POLYVINYL ALCOHOL 1.4%) OPTH DROPS OU SCH ×4 (09:45→21:36)
[2017-07-26] MEDS: POLYETHYLENE GLYCOL 3350 119 GM BTL PO SCH (09:47)
[2017-07-26] MEDS: valACYclovir HCL 500 MG TABLET (FP) PO SCH ×2 (09:47→21:34)
[2017-07-26] MEDS: AMMONIUM LACTATE 12% LOTION 225 GM BOTTLE TP SCH (09:47)
[2017-07-26] MEDS: TICAGRELOR 60 MG TABLET PO SCH ×2 (11:58→21:35)
--- NOTE | 2017-07-26 12:47 | PN ---
Progress Note (short form) - Note Progress Note: - Note Progress Note: S: No cp, palps, dizziness, sob. Current Medications Generic Name Dose Route Start Last Admin Trade Name Freq PRN Reason Stop Dose Admin Acetaminophen 650 mg 07/24/17 17:22 Tylenol - PO PRN PRN PAIN Amlodipine Besylate 5 mg 07/25/17 10:00 07/26/17 09:44 Norvasc - PO 5 mg DAILY JOSE ELIAS Administration Artificial Tears 1 drop 07/24/17 18:00 07/26/17 09:45 Artificial Tears OU 1 drop QID JOSE ELIAS Administration Ascorbic Acid 500 mg 07/25/17 10:00 07/26/17 09:44 Vitamin C - PO 500 mg DAILY JOSE ELIAS Administration Aspirin 81 mg 07/25/17 10:00 07/26/17 09:43 Asa - PO 81 mg DAILY JOSE ELIAS Administration Atorvastatin Calcium 40 mg 07/24/17 22:00 07/25/17 22:04 Lipitor - PO 40 mg HS JOSE ELIAS Administration Bacitracin 1 applic 07/24/17 17:32 Bacitracin - TP DAILY PRN WOUND CARE Furosemide 40 mg 07/25/17 10:00 07/26/17 09:44 Lasix - PO 40 mg DAILY JOSE ELIAS Administration Gabapentin 100 mg 07/24/17 22:00 07/26/17 06:30 Neurontin - PO 100 mg TID JOSE ELIAS Administration Heparin Sodium (Porcine) 5,000 unit 07/24/17 22:00 07/26/17 09:44 Heparin - SQ 5,000 unit BID JOSE ELIAS Administration Hydrocortisone 1 applic 07/24/17 22:00 07/26/17 09:45 Anusol 2.5% Hc Cream - TP 1 gm BID JOSE ELIAS Administration Insulin Detemir 35 units 07/24/17 22:00 07/25/17 22:15 Levemir Vial SQ 35 units HS JOSE ELIAS Administration Lactic Acid 1 applic 07/24/17 17:15 07/26/17 09:47 Lac-Hydrin 12 TP 1 applic DAILY JOSE ELIAS Administration Multivitamins/Minerals/Vitamin C 1 tab 07/25/17 10:00 07/26/17 09:44 Tab-A-Vit - PO 1 tab DAILY JOSE ELIAS Administration Nitroglycerin 0.3 mg 07/24/17 17:35 Nitrostat - SL Q5M PRN FOR CHEST PAIN Non-Formulary Medication 1 ml 07/24/17 22:00 Loteprednol Etab 0.5% Oph Susp [Lotemax (Nf)] OS TID JOSE ELIAS Pantoprazole Sodium 40 mg 07/24/17 22:00 07/26/17 09:44 Protonix - PO 40 mg BID JOSE ELIAS Administration Polyethylene Glycol 17 gm 07/25/17 10:00 07/26/17 09:47 Miralax (For Daily Use) - PO Not Given DAILY JOSE ELIAS Potassium Chloride 20 meq 07/25/17 10:00 07/26/17 09:44 K-Dur - PO 20 meq DAILY JOSE ELIAS Administration Ramipril 10 mg 07/25/17 10:00 07/26/17 09:43 Altace - PO 10 mg DAILY JOSE ELIAS Administration Senna 1 tab 07/25/17 10:00 07/26/17 09:49 Senna - PO Not Given DAILY JOSE ELIAS Sitagliptin Phosphate 50 mg 07/25/17 07:00 07/26/17 06:29 Januvia - PO 50 mg DAILY@0700 JOSE ELIAS Administration Ticagrelor 60 mg 07/24/17 22:00 07/26/17 11:58 Brilinta PO 60 mg BID JOSE ELIAS Administration Valacyclovir HCl 1,000 mg 07/24/17 22:00 07/26/17 09:47 Valtrex - PO 1,000 mg BID JOSE ELIAS Administration Vital Signs Period Temp Pulse Resp BP Sys/Emerson Pulse Ox Last 24 Hr 97.7 F-99.3 F 67-79 18-20 92-131/42-70 98-98 Constitutional: Yes: No Distress, Obese Eyes: No: Sclera Icterus Respiratory: Yes: CTA Bilaterally. No: Accessory Muscle Use, Rales, Wheezes Gastrointestinal: Yes: Normal Bowel Sounds. No: Distention, Hepatomegaly, Palpable Mass, Tenderness Cardiovascular: Yes: Regular Rate and Rhythm JVD: No Heart Sounds: Yes: S1, S2. No: Gallop Murmur: No: Systolic Murmur, Diastolic Murmur Extremities: No: Cold, Cyanosis Edema: Yes (1+ pretibs) Integumentary: No: Jaundice diaphoresis Neurological: Yes: Alert, Oriented (x3) Psychiatric: No: Agitated - Other Data Labs, Other Data: CBC, BMP 07/25/17 06:25 07/25/17 06:25 06/2017 mibi: Stress test + for moderate intensity ischemia of posterior and lateral wall. ? TID [facility] 10/12: DAYANA to mLAD, PTCA of D1. residual 50-60% mRCA. OM1 chronically occluded fills via LAD collaterals Echo 04/12: TDS. normal overall LVSF, can't r/o RWMAs. mild-mod RVE with mild hypo. mild-mod TR. RVSP 30-40 Echo 08/11: nl LV, nl RV, mild LAE, valve fxn WNL CXR: clear lungs/pleura ECG: NSR, normal axis 0.[address] elev inferior leads, NSST-T septal leads--all were present on prior 10/12 tele: sr a/p: chest pain, atypical: -trop neg x3 -ECG non-ischemic -no signs acs -no risk factors for aorta dissection and clinical picture (with no hi or low bp 's either) not suggestive -sx's suggestive of GERD vs MSK (reproducible at times) -mibi was done and i reviewed images and there is only minimal inferolateral ischemia in area of patient's known residual disease, no significant TID is seen. Echo today is also unremarkable. -pt has no further cp -given atypical cp, now resolved, and low risk echo and mibi findings, would continue with medical management of cad for now CAD, prior h/o ACS (UA presentation) with PCI of LAD: -plan as above -residual moderate angiographic stenosis of mRCA, and [employer] of OM fed by LAD collaterals -at that time, initial ecg suspicious for anterolateral STEMI--resolved when CP resolved after NTG -toprol was stopped due to low bp by dr miller -on ASA, brilinta (90 bid), atorva 40 at home--cont same chronic diast CHF, venous ins'y/edema: -on lasix 40 bid at home -wt 175 lbs in office 07/17 (range 178-181) -of note is RV dilation and mild hypo on last echo--? 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 should have sleep study as outpt if not previously done, and consider CPAP or at least nocturnal O2 if evidence of signif hypoxia--dr miller is planning rpt office echo once she is better diuresed HTN: -bp well controlled -cont home amlodipine 10mg DM: -per pmd CKD: -baseline creat ranges 1-1.6 -renal fxn stable here cardiac mccallum stable for dc
[2017-07-26] MEDS ORDERED: INSULIN (NOVOLOG) ASPART 100 UNITS/ML 10ML VIAL ONE (17:33)
[2017-07-26 19:19] LABS: MCH 30.1 pg (25.7-33.7); MCHC 33.8 g/dl (32.0-36.0); MEAN PLT VOLUME 9.4 fl (7.5-11.1); PLATELET COUNT 258 K/MM3 (134-434); RDW 21.8 % (11.6-15.6); WHITE BLOOD COUNT 9.2 K/mm3 (4.0-10.0)
[2017-07-26 19:40] LABS: ANION GAP 9 (8-16); CO2 23 mmol/L (21-32); CREATININE 1.7 mg/dL (0.55-1.02); GLUCOSE,RANDOM 227 mg/dL (74-106)
[2017-07-26] MEDS: ATORVASTATIN CA 40 MG TABLET (FP) PO SCH (21:33)
[2017-07-26] MEDS: INSULIN DETEMIR 100 UNITS/ML MDV SQ SCH (21:38)
[2017-07-27] MEDS: sitaGLIPtin PHOSPHATE 50 MG TABLET PO SCH (06:06)
[2017-07-27] MEDS: GABAPENTIN 100 MG CAPSULE (FP) PO SCH ×2 (06:06→14:43)
[2017-07-27] MEDS: ASCORBIC ACID 500 MG TABLET (FP) PO SCH (09:19)
[2017-07-27] MEDS: PANTOPRAZOLE 40 MG TABLET (FP) PO SCH (09:19)
[2017-07-27] MEDS: valACYclovir HCL 500 MG TABLET (FP) PO SCH (09:19)
[2017-07-27] MEDS: POTASSIUM CHLORIDE TABS 20 MEQ TABLET.ER (FP) PO SCH (09:19)
[2017-07-27] MEDS: ASPIRIN 81 MG CHEWABLE TABLETS PO SCH (09:19)
[2017-07-27] MEDS: TICAGRELOR 60 MG TABLET PO SCH (09:20)
[2017-07-27] MEDS: SENNOSIDES 8.6MG TABLET (FP) PO SCH (09:20)
[2017-07-27] MEDS: amLODIPine BESYLATE 5 MG TABLET (FP) PO SCH (09:20)
[2017-07-27] MEDS: HEPARIN NA (PORCINE) 5,000 UNITS/ML 1ML VIAL SQ SCH (09:20)
[2017-07-27] MEDS: MULTIVITAMINS (DAILY MVI) TABLET (FP) PO SCH (09:20)
[2017-07-27] MEDS: POLYETHYLENE GLYCOL 3350 119 GM BTL PO SCH (09:21)
[2017-07-27] MEDS: ARTIFICIAL TEARS (POLYVINYL ALCOHOL 1.4%) OPTH DROPS OU SCH ×2 (09:21→14:43)
[2017-07-27] MEDS: HYDROCORTISONE 2.5% TOPICAL CREAM 30 GM TUBE TP SCH (09:21)
[2017-07-27] MEDS: AMMONIUM LACTATE 12% LOTION 225 GM BOTTLE TP SCH (09:53)
[2017-07-27] MEDS ORDERED: ISOSORBIDE MONONITRATE 30 MG TAB.SR.24H (FP) PO SCH (10:00)
[2017-07-27] MEDS ORDERED: FUROSEMIDE 20 MG TABLET (FP) PO SCH (10:00)
[2017-07-27] MEDS ORDERED: RAMIPRIL 5 MG CAPSULE (FP) PO SCH (10:00)
--- NOTE | 2017-07-27 11:05 | PN ---
Progress Note (short form) - Note Progress Note: - Note Progress Note: S: No cp, palps, dizziness, sob. Current Medications Generic Name Dose Route Start Last Admin Trade Name Freq PRN Reason Stop Dose Admin Acetaminophen 650 mg 07/24/17 17:22 Tylenol - PO PRN PRN PAIN Amlodipine Besylate 5 mg 07/25/17 10:00 07/27/17 09:20 Norvasc - PO 5 mg DAILY JOSE ELIAS Administration Artificial Tears 1 drop 07/24/17 18:00 07/27/17 09:21 Artificial Tears OU 1 drop QID JOSE ELIAS Administration Ascorbic Acid 500 mg 07/25/17 10:00 07/27/17 09:19 Vitamin C - PO 500 mg DAILY JOSE ELIAS Administration Aspirin 81 mg 07/25/17 10:00 07/27/17 09:19 Asa - PO 81 mg DAILY JOSE ELIAS Administration Atorvastatin Calcium 40 mg 07/24/17 22:00 07/26/17 21:33 Lipitor - PO 40 mg HS JOSE ELIAS Administration Bacitracin 1 applic 07/24/17 17:32 Bacitracin - TP DAILY PRN WOUND CARE Gabapentin 100 mg 07/24/17 22:00 07/27/17 06:06 Neurontin - PO 100 mg TID JOSE ELIAS Administration Heparin Sodium (Porcine) 5,000 unit 07/24/17 22:00 07/27/17 09:20 Heparin - SQ 5,000 unit BID JOSE ELIAS Administration Hydrocortisone 1 applic 07/24/17 22:00 07/27/17 09:21 Anusol 2.5% Hc Cream - TP 1 applic BID JOSE ELIAS Administration Insulin Detemir 35 units 07/24/17 22:00 07/26/17 21:38 Levemir Vial SQ 35 units HS JOSE ELIAS Administration Isosorbide Mononitrate 30 mg 07/27/17 10:00 07/27/17 09:26 Imdur - PO 30 mg DAILY JOSE ELIAS Administration Lactic Acid 1 applic 07/24/17 17:15 07/27/17 09:53 Lac-Hydrin 12 TP Not Given DAILY [facility] Multivitamins/Minerals/Vitamin C 1 tab 07/25/17 10:00 07/27/17 09:20 Tab-A-Vit - PO 1 tab DAILY JOSE ELIAS Administration Nitroglycerin 0.3 mg 07/24/17 17:35 Nitrostat - SL Q5M PRN FOR CHEST PAIN Non-Formulary Medication 1 ml 07/24/17 22:00 Loteprednol Etab 0.5% Oph Susp [Lotemax (Nf)] OS TID JOSE ELIAS Pantoprazole Sodium 40 mg 07/24/17 22:00 07/27/17 09:19 Protonix - PO 40 mg BID JOSE ELIAS Administration Polyethylene Glycol 17 gm 07/25/17 10:00 07/27/17 09:21 Miralax (For Daily Use) - PO Not Given DAILY JOSE ELIAS Potassium Chloride 20 meq 07/25/17 10:00 07/27/17 09:19 K-Dur - PO 20 meq DAILY JOSE ELIAS Administration Ramipril 5 mg 07/27/17 10:00 07/27/17 09:26 Altace - PO 5 mg DAILY JOSE ELIAS Administration Senna 1 tab 07/25/17 10:00 07/27/17 09:20 Senna - PO 1 tab DAILY JOSE ELIAS Administration Sitagliptin Phosphate 50 mg 07/25/17 07:00 07/27/17 06:06 Januvia - PO 50 mg DAILY@0700 JOSE ELIAS Administration Ticagrelor 60 mg 07/24/17 22:00 07/27/17 09:20 Brilinta PO 60 mg BID JOSE ELIAS Administration Valacyclovir HCl 1,000 mg 07/24/17 22:00 07/27/17 09:19 Valtrex - PO 1,000 mg BID JOSE ELIAS Administration Vital Signs Period Temp Pulse Resp BP Sys/[place] Pulse Ox Last 24 Hr 97.5 F-98.2 F 67-80 18-21 97-116/47-72 96-97 Constitutional: Yes: No Distress, Obese Eyes: No: Sclera Icterus Respiratory: Yes: CTA Bilaterally. No: Accessory Muscle Use, Rales, Wheezes Gastrointestinal: Yes: Normal Bowel Sounds. No: Distention, Hepatomegaly, Palpable Mass, Tenderness Cardiovascular: Yes: Regular Rate and Rhythm JVD: No Heart Sounds: Yes: S1, S2. No: Gallop Murmur: No: Systolic Murmur, Diastolic Murmur Extremities: No: Cold, Cyanosis Edema: Yes (1+ pretibs) Integumentary: No: Jaundice diaphoresis Neurological: Yes: Alert, Oriented (x3) Psychiatric: No: Agitated - Other Data Labs, Other Data: CBC, BMP 07/26/17 18:40 07/26/17 18:40 06/2017 mibi: Stress test + for moderate intensity ischemia of posterior and lateral wall. ? TID [facility] 10/12: DAYANA to mLAD, PTCA of D1. residual 50-60% mRCA. OM1 chronically occluded fills via LAD collaterals Echo 04/12: TDS. normal overall LVSF, can't r/o RWMAs. mild-mod RVE with mild hypo. mild-mod TR. RVSP 30-40 Echo 08/11: nl LV, nl RV, mild LAE, valve fxn WNL CXR: clear lungs/pleura ECG: NSR, normal axis 0.[address] elev inferior leads, NSST-T septal leads--all were present on prior 10/12 tele: sr a/p: chest pain, atypical: -trop neg x3 -ECG non-ischemic -no signs acs -no risk factors for aorta dissection and clinical picture (with no hi or low bp 's either) not suggestive -sx's suggestive of GERD vs MSK (reproducible at times) -mibi was done and i reviewed images and there is only minimal inferolateral ischemia in area of patient's known residual disease, no significant TID is seen. Echo today is also unremarkable. 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 -will repeat chem7 today. If cr stable/improved then ok for dc to SAL with prior lasix dose 40 bid and monitoring of cr next week.
[2017-07-27 12:13] LABS: ANION GAP 10 (8-16); CALCIUM 8.4 mg/dL (8.5-10.1); CO2 22 mmol/L (21-32); CREATININE 1.6 mg/dL (0.55-1.02); GLUCOSE,RANDOM 214 mg/dL (74-106)
--- NOTE | 2017-07-27 13:15 | PN ---
Progress Note, Physician Chief Complaint: Chest pain History of Present Illness: NAD, no dizziness, no SOB - Current Medication List Current Medications: Active Medications Acetaminophen (Tylenol -) 650 mg PO PRN PRN PRN Reason: PAIN Amlodipine Besylate (Norvasc -) 5 mg PO DAILY [facility] Last Admin: 07/27/17 09:20 Dose: 5 mg Artificial Tears (Artificial Tears) 1 drop OU QID [facility] Last Admin: 07/27/17 09:21 Dose: 1 drop Ascorbic Acid (Vitamin C -) 500 mg PO DAILY [facility] Last Admin: 07/27/17 09:19 Dose: 500 mg Aspirin (Asa -) 81 mg PO DAILY [facility] Last Admin: 07/27/17 09:19 Dose: 81 mg Atorvastatin Calcium (Lipitor -) 40 mg PO HS [facility] Last Admin: 07/26/17 21:33 Dose: 40 mg Bacitracin (Bacitracin -) 1 applic TP DAILY PRN PRN Reason: WOUND CARE Gabapentin (Neurontin -) 100 mg PO TID [facility] Last Admin: 07/27/17 06:06 Dose: 100 mg Heparin Sodium (Porcine) (Heparin -) 5,000 unit SQ BID [facility] Last Admin: 07/27/17 09:20 Dose: 5,000 unit Hydrocortisone (Anusol 2.5% Hc Cream -) 1 applic TP BID [facility] Last Admin: 07/27/17 09:21 Dose: 1 applic Insulin Detemir (Levemir Vial) 35 units SQ HS [facility] Last Admin: 07/26/17 21:38 Dose: 35 units Isosorbide Mononitrate (Imdur -) 30 mg PO DAILY [facility] Last Admin: 07/27/17 09:26 Dose: 30 mg Lactic Acid (Lac-Hydrin 12) 1 applic TP DAILY [facility] Last Admin: 07/27/17 09:53 Dose: Not Given Multivitamins/Minerals/Vitamin C (Tab-A-Vit -) 1 tab PO DAILY [facility] Last Admin: 07/27/17 09:20 Dose: 1 tab Nitroglycerin (Nitrostat -) 0.3 mg SL Q5M PRN PRN Reason: FOR CHEST PAIN Non-Formulary Medication (Loteprednol Etab 0.5% Oph Susp [Lotemax (Nf)]) 1 ml OS TID [facility] Pantoprazole Sodium (Protonix -) 40 mg PO BID [facility] Last Admin: 07/27/17 09:19 Dose: 40 mg Polyethylene Glycol (Miralax (For Daily Use) -) 17 gm PO DAILY [facility] Last Admin: 07/27/17 09:21 Dose: Not Given Potassium Chloride (K-Dur -) 20 meq PO DAILY [facility] Last Admin: 07/27/17 09:19 Dose: 20 meq Ramipril (Altace -) 5 mg PO DAILY [facility] Last Admin: 07/27/17 09:26 Dose: 5 mg Senna (Senna -) 1 tab PO DAILY [facility] Last Admin: 07/27/17 09:20 Dose: 1 tab Sitagliptin Phosphate (Januvia -) 50 mg PO DAILY@0700 [facility] Last Admin: 07/27/17 06:06 Dose: 50 mg Ticagrelor (Brilinta) 60 mg PO BID [facility] Last Admin: 07/27/17 09:20 Dose: 60 mg Valacyclovir HCl (Valtrex -) 1,000 mg PO BID [facility] Last Admin: 07/27/17 09:19 Dose: 1,000 mg - Objective Vital Signs: Vital Signs Temperature 97.5 F L 07/27/17 05:00 Pulse Rate 74 07/27/17 07:38 Respiratory Rate 20 07/27/17 08:00 Blood Pressure 115/69 07/27/17 07:38 O2 Sat by Pulse Oximetry (%) 97 07/27/17 08:00 Constitutional: Yes: Well Nourished, No Distress, Calm Cardiovascular: Yes: Regular Rate and Rhythm Respiratory: Yes: Regular Gastrointestinal: Yes: Normal Bowel Sounds Neurological: Yes: Alert, Oriented Psychiatric: Yes: Alert, Oriented Labs: CBC, BMP 07/26/17 18:40 07/27/17 11:35 INR, PTT INR 0.99 (0.82-1.09) 07/24/17 11:40 Problem List - Problems (1) CAD (coronary artery disease) Code(s): I25.10 - ATHSCL HEART DISEASE OF [place] CORONARY ARTERY W/O ANG PCTRS Qualifiers: Coronary Disease-Associated Artery/Lesion type: unspecified vessel or lesion type [place] vs. transplanted heart: [place] heart Associated angina: with unstable angina Qualified Code(s): I25.110 - Atherosclerotic heart disease of [place] coronary artery with unstable angina pectoris (2) CHF (congestive heart failure) Code(s): I50.9 - HEART FAILURE, UNSPECIFIED Qualifiers: Congestive heart failure type: diastolic Congestive heart failure chronicity: chronic Qualified Code(s): I50.32 - Chronic diastolic (congestive ) heart failure (3) Chest pain Assessment/Plan: -trop neg x3 -ECG non-ischemic -no signs acs -no risk factors for aorta dissection and clinical picture (with no hi or low bp 's either) not suggestive -sx's suggestive of GERD vs MSK (reproducible at times) -mibi was done, minimal inferolateral ischemia in area of patient's known residual disease, no significant TID is seen. Echo unremarkable. Code(s): R07.9 - CHEST PAIN, UNSPECIFIED Qualifiers: Chest pain type: precordial pain Qualified Code(s): R07.2 - Precordial pain (4) Diabetes 1.5, managed as type 2 Code(s): E13.9 - OTHER SPECIFIED DIABETES MELLITUS WITHOUT COMPLICATIONS
[2017-07-27 15:31] VITALS: BP 102/56; PULSE 78; TEMP 98.8
== END 2017-07-27 15:30 ==
LOC: JER 09:39 → JERBED 13:48 → J4W 07-25 14:45
PROVIDERS: ADMIT Family Medicine; ATTEND Family Medicine
PROC: 3E033GC Introduction of Other Therapeutic Substance into Peripheral Vein, Percutaneous Approach (ICD-10-PCS; principal; 2017-07-24)
PROC: 3E013GC Introduction of Other Therapeutic Substance into Subcutaneous Tissue, Percutaneous Approach (ICD-10-PCS; 2017-07-24)
PROC: 3E013VG Introduction of Insulin into Subcutaneous Tissue, Percutaneous Approach (ICD-10-PCS; 2017-07-24)
DX: R07.2 Precordial pain (principal); I25.2 Old myocardial infarction; I25.10 Atherosclerotic heart disease of native coronary artery without angina pectoris; Z98.61 Coronary angioplasty status; I11.0 Hypertensive heart disease with heart failure; E78.5 Hyperlipidemia, unspecified; E11.9 Type 2 diabetes mellitus without complications; Z79.4 Long term (current) use of insulin; R60.9 Edema, unspecified; I87.2 Venous insufficiency (chronic) (peripheral)
CPT/HCPCS: 36415; 71010-TC; 78452-TC; 80048; 80053; 80061; 82550; 83036; 83721; 83735; 83880; 84484; 85025; 85027; 85610; 93005; 93010; 93017; 93306-TC; 93970-TC; 96372; 96374; 99285-25; A9502; G0378; J1644; J2785

== ENCOUNTER 2017-08-07 14:38 | Inpatient (IN) | payer OTHER, BC ==
--- NOTE | 2017-08-07 15:08 | PDOC ---
History of Present Illness - General Stated Complaint: ABD PAIN Time Seen by Provider: 08/07/17 15:07 - History of Present Illness Initial Comments: 82 year old female with PMH of HTN, high cholesterol, NIDDM, CAD (NV with stent 2 years prior on aspirin and Ticagrelor), CHF, and CKD presenting from [facility] with sudden onset abdominal pain and lethargy after taking an unknown pain medication between 12:00 and 13:00 on the day of presentation. The abdominal pain is sharp, epigastric, non radiating, and described as a "gassy" pain. Denies nausea, vomiting, diarrhea, cough, chest pain, or other sick symptoms. 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 08/07/17 16:29 Past History - Past Medical History Allergies/Adverse Reactions: Allergies Allergy/AdvReac Type Severity Reaction Status Date / Time No Known Drug Allergies Allergy Verified 08/07/17 14:57 TOMATO SAUCE ONLY Allergy Uncoded 08/07/17 14:57 Home Medications: Ambulatory Orders Acetaminophen [Tylenol] 650 mg PO BID PRN 08/07/17 Amlodipine Besylate 5 mg PO DAILY 08/07/17 Ammonium Lactate [Skin Treatment] 1 applic TP DAILY 08/07/17 Ascorbic Acid [Vitamin C -] 500 mg PO DAILY 08/07/17 Aspirin [ASA -] 81 mg PO DAILY 08/07/17 Atorvastatin Ca [Lipitor] 40 mg PO DAILY 08/07/17 Bacitracin - [Bacitracin Topical Ointment -] 1 applic TP PRN PRN 08/07/17 Gabapentin 300 mg PO TID 08/07/17 Hypromellose 0.5% Opth Soln [Artificial Tears] 1 drop OU QID PRN 08/07/17 Insulin Glargine,Hum.rec.anlog [Lantus (10mL VIAL) -] 35 units SQ HS 08/07/17 Isosorbide Mononitrate [Isosorbide Mononitrate ER] 30 mg PO DAILY 08/07/17 Loratadine [Claritin] 10 mg PO DAILY 08/07/17 Multivitamin [One Daily] 1 each PO DAILY 08/07/17 Pantoprazole Sodium 40 mg PO BID 08/07/17 Polyethylene Glycol 3350 [Miralax 119 gm Btl -] 17 gm PO DAILY 08/07/17 Ramipril 10 mg PO DAILY 08/07/17 Ticagrelor [Brilinta] 60 mg PO BID 08/07/17 Furosemide [Lasix -] 40 mg PO BID #14 tablet MDD 2 08/14/17 Insulin (Levemir) [Levemir Vial] 15 units SQ AM ml 08/14/17 Prednisone [Deltasone -] 2.5 mg PO DAILY #7 tablet MDD 2 08/14/17 Sitagliptin Phosphate [Januvia -] 25 mg PO DAILY@0700 tab 08/14/17 Tamsulosin HCl [Flomax -] 0.4 mg PO DAILY@0830 #30 cap.er.24h MDD 1 08/14/17 Anemia: No 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) Cardiac Disorders: (CAD - cath, stent, NV, n-stemi) COPD: Yes CHF: Yes Diabetes: Yes GI Disorders: Yes (gerd) HTN: Yes Hypercholesterolemia: Yes - Surgical History Cholecystectomy: Yes Orthopedic Surgery: Yes (right hip ORIF 12/2013) - Immunization History Immunization Up to Date: No - Suicide/Smoking/Psychosocial Hx Smoking Status: No Smoking History: Never smoked Have you smoked in the past 12 months: No Number of Cigarettes Smoked Daily: 0 Cigars Per Day: 0 Hx Alcohol Use: No Drug/Substance Use Hx: No Substance Use Type: None Hx Substance Use Treatment: No Review of Systems - Review of Systems Constitutional: No: Chills, Diaphoresis, Fever, Loss of Appetite Respiratory: No: Cough, Shortness of Breath Cardiac (ROS): No: Chest Pain ABD/GI: No: Constipated, Diarrhea, Nausea, Poor Appetite, Vomiting : No: Dysuria, Discharge, Hematuria Integumentary: No: Bruising, Change in Color, Erythema, Flushing *Physical Exam - Physical Exam General Appearance: Yes: Nourished, Appropriately Dressed. No: Apparent Distress HEENT: positive: EOMI, JA, Normal Voice Neck: positive: Trachea midline, Normal Thyroid, Supple. negative: Tender, Rigid Respiratory/Chest: positive: Lungs Clear, Normal Breath Sounds. negative: Chest Tender, Respiratory Distress Cardiovascular: positive: Regular Rhythm, Regular Rate. negative: Murmur Gastrointestinal/Abdominal: positive: Normal Bowel Sounds, Flat, Soft. negative : Tender Extremity: positive: Normal Capillary Refill, Normal Inspection, Normal Range of Motion Integumentary: positive: Normal Color, Dry, Warm Neurologic: positive: Fully Oriented (Fully oriented but has trouble recalling past events), Alert, Normal Mood/Affect ED Treatment Course - LABORATORY CBC & Chemistry Diagram: 08/09/17 06:00 08/14/17 06:40 Medical Decision Making - Medical Decision Making 82 year old female who presented for an episode of lethargy and acute abdominal pain with pressures in the 90s on presentation. Given the original hypotension and report of lethargy along with temperature of 99.8 rectal we are concerned for sepsis. UA positive for WBCs. CBC positive for neutrophilia. CMP positive for CAROLYN (2.2 vs. 1.6 in the past). Will admit for urosepsis with carolyn. technically QSOFA positve and borderline SIRS criteria positive. received 1 L over two hours (cautious in the setting of chronic CHF). 08/07/17 20:00 *DC/Admit/Observation/Transfer Diagnosis at time of Disposition: SIRS (systemic inflammatory response syndrome), CAROLYN (acute kidney injury) Leukocytosis Qualifiers: Leukocytosis type: lymphocytosis Qualified Code(s): D72.820 - Lymphocytosis ( symptomatic) Hypotension Qualifiers: Hypotension type: unspecified hypotension type Qualified Code(s): I95.9 - Hypotension, unspecified - Discharge Dispostion [facility] Condition at time of disposition: Improved - Prescriptions - Referrals - Patient Instructions - Post Discharge Activity
[2017-08-07] MEDS ORDERED: SODIUM CHLORIDE 1,000 ML IV SCH (15:30)
--- NOTE | 2017-08-07 15:56 | EKG ---
Test Reason : Blood Pressure : / mmHG Vent. Rate : 088 BPM Atrial Rate : 088 BPM P-R Int : 180 ms QRS Dur : 080 ms QT Int : 344 ms P-R-T Axes : 026 045 064 degrees QTc Int : 416 ms NORMAL SINUS RHYTHM NORMAL ECG WHEN COMPARED WITH ECG OF 24-JUL-2017 09:55, [place] INTERVAL HAS DECREASED Confirmed by Stanislav Schreiber ([id number]) on 08/07/2017 3:56:38 PM Referred By: Confirmed By:Stanislav Schreiber
[2017-08-07 16:33] LABS: BASO % 0.1 % (0-2.0); EOS % 0.8 % (0-4.5); MCH 30.3 pg (25.7-33.7); MCHC 33.2 g/dl (32.0-36.0); MEAN CELL VOLUME 91.1 fl (80-96); MEAN PLT VOLUME 9.2 fl (7.5-11.1); NEUT % 85.1 % (42.8-82.8); PLATELET COUNT 215 K/MM3 (134-434); WHITE BLOOD COUNT 9.4 K/mm3 (4.0-10.0)
[2017-08-07 16:38] LABS: VENOUS BLOOD GAS HCO3 23.9 meq/L (19-25); VENOUS PH 7.33 (7.32-7.42)
[2017-08-07 16:48] LABS: INR 1.1 (0.82-1.09); PROTHROMBIN TIME (PATIENT) 12.4 SEC (9.98-11.88)
[2017-08-07 16:50] LABS: ACTIVATED PTT 29.9 SECONDS (26.9-34.4)
[2017-08-07 17:01] LABS: ALBUMIN 3.8 g/dl (3.4-5.0); ANION GAP 13 (8-16); BILIRUBIN,TOTAL 0.6 mg/dL (0.2-1.0); CALCIUM 8.5 mg/dL (8.5-10.1); CO2 23 mmol/L (21-32); CREATININE 2.3 mg/dL (0.55-1.02); GLUCOSE,RANDOM 185 mg/dL (74-106); SGOT/AST 22 U/L (15-37); SGPT/ALT 27 U/L (12-78); TOT PROT 7.2 g/dl (6.4-8.2)
[2017-08-07 17:04] LABS: ALK PHOS 175 U/L (45-117); CPK 70 IU/L (26-192); TROPONIN I < 0.02 ng/ml (0.00-0.05)
[2017-08-07 17:08] LABS: URINE APPEARANCE CLOUDY; URINE BILIRUBIN NEGATIVE (NEGATIVE); URINE BLOOD 2+ (NEGATIVE); URINE COLOR YELLOW; URINE GLUCOSE (UA) NEGATIVE (NEGATIVE); URINE KETONE NEGATIVE (NEGATIVE); URINE NITRITE NEGATIVE (NEGATIVE); URINE PROTEIN NEGATIVE (NEGATIVE); URINE UROBILINOGEN NEGATIVE mg/dL (0.2-1.0)
--- NOTE | 2017-08-07 17:11 | PDOC ---
Attending Attestation - Resident Resident Name: Rome Eubanks - ED Attending Attestation I have performed the following: I have examined & evaluated the patient, The case was reviewed & discussed with the resident, I agree w/resident's findings & plan, Exceptions are as noted - HPI HPI: 08/07/17 17:05 82y[facility] F [facility] episode of generalized abd pain and weakness/lethargy. pt attributes the sleepiness to taking claritin for the first time, now resolved and has no c/o headache/confusion. gives very detailed report of the events. c/o generalized abd pain without n/v/d. - Physicial Exam PE: 08/07/17 17:07 low grade temp alert and coherent, speaking full sentences abd distended but soft. ttp with guarding in the R mid and b/l lower abd. no rebound. BS wnl no cvat - Medical Decision Making 08/07/17 17:10 Patient seen and evaluated with the resident. I agree with the overall evaluation, assessment, and management with the following summary of visit: 82-year-old female from residential with acute episode of abdominal pain, question related somnolence. The somnolence is now resolved, initially presented with low-grade temp and O2 sat 94%, both which improved. Now with persistent abdominal pain and tenderness with some focal peritoneal findings. Check labs, urinalysis EKG, chest x-ray, abdominal x-ray CT of the abdomen and pelvis Reassess, likely admission. Patient was signed out to the oncoming ED physician to follow-up the results, reassess the patient, and dispo accordingly. 08/07/17 17:11 Cr with APRIL, 2.3 from baseline 1.6. K 5.7. Awaiting CTAP and admission. Heart Score/ECG Review #1 ECG reviewed & interpreted by me at: 15:08 General ECG Interpretation: Sinus Rhythm, Normal Rate (88), Normal Intervals ( qtc 416), No acute ischemic changes
[2017-08-07 17:13] LABS: URINE LEUK ESTERASE 3+ (NEGATIVE)
[2017-08-07 17:47] LABS: URINE BACTERIA MODERATE /hpf (NONE SEEN); URINE HYALINE CAST 5 /lpf; URINE MUCUS RARE; URINE RBC 2 /hpf (0-3); URINE WBC 26 /hpf (3-5)
[2017-08-07] MEDS ORDERED: cefTRIAXone 1 GM/50 ML BAG (PRE-DOCKED) IVPB ONE (18:54)
[2017-08-07] MEDS ORDERED: CEFTRIAXONE 1 GM/50 ML BAG ONE (18:59)
[2017-08-07] MEDS ORDERED: BACITRACIN 15 GM TUBE TOPICAL OINTMENT TP PRN (19:50)
[2017-08-07] MEDS ORDERED: ACETAMINOPHEN 325 MG TABLET (FP) PO PRN (19:50)
[2017-08-07 20:11] LABS: URINE LEUK ESTERASE 3+ (NEGATIVE)
[2017-08-07] MEDS: SODIUM CHLORIDE 0.45% 1,000 ML IV SCH (21:55)
[2017-08-07] MEDS: ATORVASTATIN CA 40 MG TABLET (FP) PO SCH (23:41)
[2017-08-07] MEDS: GABAPENTIN 300 MG CAPSULE (FP) PO SCH (23:41)
[2017-08-07] MEDS: TICAGRELOR 60 MG TABLET PO SCH (23:41)
[2017-08-07] MEDS: PANTOPRAZOLE 40 MG TABLET (FP) PO SCH (23:41)
[2017-08-07] MEDS: INSULIN SLIDING SCALE (NOVOLOG) 1 VIAL SQ SCH (23:45)
[2017-08-08] MEDS: INSULIN DETEMIR 100 UNITS/ML MDV SQ SCH ×2 (00:36→22:27)
[2017-08-08 03:02] VITALS: BMI 32.9
[2017-08-08] MEDS: GABAPENTIN 300 MG CAPSULE (FP) PO SCH ×3 (06:10→22:26)
[2017-08-08] MEDS: INSULIN SLIDING SCALE (NOVOLOG) 1 VIAL SQ SCH ×4 (06:13→22:33)
[2017-08-08 08:15] LABS: BASO % 0.2 % (0-2.0); EOS % 2.2 % (0-4.5); MCH 30.6 pg (25.7-33.7); MCHC 33.7 g/dl (32.0-36.0); MEAN PLT VOLUME 9.6 fl (7.5-11.1); NEUT % 69.6 % (42.8-82.8); PLATELET COUNT 164 K/MM3 (134-434); RDW 22.1 % (11.6-15.6)
[2017-08-08 08:46] LABS: ALBUMIN 3.1 g/dl (3.4-5.0); ANION GAP 11 (8-16); BILIRUBIN,TOTAL 0.5 mg/dL (0.2-1.0); CO2 22 mmol/L (21-32); CREATININE 1.8 mg/dL (0.55-1.02); GLUCOSE,RANDOM 134 mg/dL (74-106); SGOT/AST 19 U/L (15-37); SGPT/ALT 27 U/L (12-78); TOT PROT 5.9 g/dl (6.4-8.2)
[2017-08-08 08:47] LABS: ALK PHOS 136 U/L (45-117)
[2017-08-08] MEDS ORDERED: PT OWN MED DRAWER 7, Y5N ONE ×2 (09:07→21:10)
--- NOTE | 2017-08-08 09:31 | PN ---
Progress Note (short form) - Note Progress Note: ID consult dictated imp/reccd 82 year old female admitted from assisted living with abdominal pain she has had cough- nonproductive, no fever since last On Sunday she saw the physician there and was prescribed zithromax and claritin which she started yesterday- she developed acute onset of abdominal pain on the left of her abdomen and came to ED she reports becoming very sleepy after taking the claritin no vomiting, no nausea normal BM no fevers ct scan abd/pelvis- RLL infiltrate, no abdominal pathology pyuria probable pneumonia cultures have been sent would screen for influenza as well legionella urinary antigen rocephin/zithromax-CAP possible UTI abdominal pain of unclear etiology- ?secondary to coughing CAROLYN- iv hydration, renal to see Problem List - Problems (1) Pneumonia Code(s): J18.9 - PNEUMONIA, UNSPECIFIED ORGANISM (2) UTI (urinary tract infection) Code(s): N39.0 - URINARY TRACT INFECTION, SITE NOT SPECIFIED Qualifiers: Urinary tract infection type: acute cystitis Hematuria presence: without hematuria Qualified Code(s): N30.00 - Acute cystitis without hematuria (3) Abdominal pain Code(s): R10.9 - UNSPECIFIED ABDOMINAL PAIN Qualifiers: Abdominal location: generalized Qualified Code(s): R10.84 - Generalized abdominal pain (4) CAROLYN (acute kidney injury) Code(s): N17.9 - ACUTE KIDNEY FAILURE, UNSPECIFIED
[2017-08-08] MEDS: ASPIRIN 81 MG CHEWABLE TABLETS PO SCH (09:33)
[2017-08-08] MEDS: sitaGLIPtin PHOSPHATE 25 MG TABLET (FP) PO SCH (09:33)
[2017-08-08] MEDS: ISOSORBIDE MONONITRATE 30 MG TAB.SR.24H (FP) PO SCH (09:33)
[2017-08-08] MEDS: ASCORBIC ACID 500 MG TABLET (FP) PO SCH (09:33)
[2017-08-08] MEDS: CEFTRIAXONE 1 G/50 ML PREMIX 50 ML IVPB SCH (09:34)
[2017-08-08] MEDS: PANTOPRAZOLE 40 MG TABLET (FP) PO SCH ×2 (09:34→22:26)
[2017-08-08] MEDS: amLODIPine BESYLATE 5 MG TABLET (FP) PO SCH (09:36)
[2017-08-08] MEDS: RAMIPRIL 5 MG CAPSULE (FP) PO SCH (09:36)
[2017-08-08] MEDS: SODIUM CHLORIDE 0.45% 1,000 ML IV SCH ×2 (09:36→20:18)
[2017-08-08] MEDS: POLYETHYLENE GLYCOL 3350 119 GM BTL PO SCH (09:44)
[2017-08-08] MEDS ORDERED: sitaGLIPtin PHOSPHATE 50 MG TABLET PO SCH (10:00)
[2017-08-08] MEDS ORDERED: CEFTRIAXONE 1 GM in DEXTROSE 5%-WATER - 50 ML IVPB SCH (10:00)
[2017-08-08 10:17] LABS: ANISOCYTOSIS 3+; HYPOCHROMIA 0; MACROCYTOSIS 0; MICROCYTOSIS 3+; POIKILOCYTOSIS 1+; POLYCHROMASIA 0
[2017-08-08 10:42] LABS: PLATELET ESTIMATE DECREASED
[2017-08-08] MEDS: TICAGRELOR 60 MG TABLET PO SCH ×2 (12:49→22:27)
--- NOTE | 2017-08-08 12:51 | PN ---
Progress Note (short form) - Note Progress Note: PULMONARY CONSULTATION DICTATED 08/08/17 IMP DYSPNEA,CHEST CONGESTION RLL PNEUMONIA ASHD S/P NV ,S/P STENT DM HTN CHF ALTERED MENTAL STATUS ACUTE ON CHRONIC KIDNEY INJURY ABDOMINAL PAIN PLAN IV ANTIBIOTICS PER ID INHALED BRONCHODILATORS STEROIDS X 24H CULTURES NASAL O2 F/U CHEST X-RAYS MONITOR LYTES,RENAL FUNCTION MONITOR BLOOD SUGARS DR MCKINLEY Problem List - Problems (1) Pneumonia Code(s): J18.9 - PNEUMONIA, UNSPECIFIED ORGANISM (2) Abdominal pain Code(s): R10.9 - UNSPECIFIED ABDOMINAL PAIN Qualifiers: Abdominal location: generalized Qualified Code(s): R10.84 - Generalized abdominal pain (3) Altered mental status Code(s): R41.82 - ALTERED MENTAL STATUS, UNSPECIFIED Qualifiers: Altered mental status type: transient alteration of awareness Qualified Code(s): R40.4 - Transient alteration of awareness (4) CAD (coronary artery disease) Code(s): I25.10 - ATHSCL HEART DISEASE OF [place] CORONARY ARTERY W/O ANG PCTRS Qualifiers: Coronary Disease-Associated Artery/Lesion type: unspecified vessel or lesion type [place] vs. transplanted heart: [place] heart Associated angina: with unstable angina Qualified Code(s): I25.110 - Atherosclerotic heart disease of [place] coronary artery with unstable angina pectoris (5) CHF (congestive heart failure) Code(s): I50.9 - HEART FAILURE, UNSPECIFIED Qualifiers: Congestive heart failure type: diastolic Congestive heart failure chronicity: chronic Qualified Code(s): I50.32 - Chronic diastolic (congestive ) heart failure (6) Diabetes Code(s): E11.9 - TYPE 2 DIABETES MELLITUS WITHOUT COMPLICATIONS Qualifiers: Diabetes mellitus type: type 2 Diabetes mellitus complication status: with hypoglycemia Diabetes mellitus complication detail: without coma Diabetes mellitus termite technician insulin use: unspecified long-term insulin use status Qualified Code(s): E11.649 - Type 2 diabetes mellitus with hypoglycemia without coma (7) Dyspnea Code(s): R06.00 - DYSPNEA, UNSPECIFIED
[2017-08-08] MEDS ORDERED: ALBUTEROL SO4 2.5/IPRATROPIUM 0.5 INH SOL 3 ML VIAL.NEB. NEB PRN (12:53)
[2017-08-08] MEDS ORDERED: methylPREDNISolone NA SUCC 40 MG/1 ML VIAL IVPUSH SCH (13:00)
[2017-08-08] MEDS: AZITHROMYCIN IVPB 500 MG in DEXTROSE 5%-WATER - 250 ML IVPB SCH (14:08)
--- NOTE | 2017-08-08 14:26 | CONS ---
DATE OF CONSULTATION: DATE OF DICTATION: 08/08/2017 REQUESTING PHYSICIAN: Tyra Lee MD HISTORY OF PRESENT ILLNESS: This is an 82-year-old woman who lives in assisted living. She has a past medical history of hypertension, diabetes, chronic diastolic heart failure. She notes that she has had a severe cough since nonproductive. No fevers. This has persisted from . She saw the doctor on Sunday when he came to the assisted living facility. He prescribed Claritin and Zithromax, which she started on Sunday. She reports after taking the Claritin, she became extremely sleepy. She took a nap, she woke up, she was unable to keep her eyes open, she kept falling asleep. She developed acute abdominal pain and was brought to the emergency room. She denied any vomiting or nausea. She reports having had regular bowel movements. There has been no chest pain. She denies any fevers or chills. In the emergency room, she was noted to be afebrile, but to have acute kidney injury with a BUN of 43, creatinine of 2.3, which was elevated from her normal. She was noted to have a temperature of 99.8 with a blood pressure of 109/45, and she was admitted for further evaluation. She had a CT scan of her abdomen and pelvis done that was read as showing a right lower lobe infiltrate, and there was no evidence of bowel obstruction or acute pathology within the abdomen or pelvis. She had an EKG that was unremarkable. Her chest x-ray showed some mild congestion. I am asked to see her for further evaluation. She is awake and alert. She reports feeling better. ALLERGIES: She has no known drug allergies. PAST MEDICAL HISTORY: Notable for history of peripheral neuropathy, coronary artery disease, congestive heart failure, hypertension. She is status post stent placement, history of diverticulosis, colon polyp, cholecystitis in the past with percutaneous cholecystostomy tube in 2013. 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 SURGICAL HISTORY: She is status post laparoscopic cholecystectomy, colonoscopy, hysterectomy, KATIA/BSO, and tonsillectomy. MEDICATIONS: [facility], aspirin 81 mg, Brilinta 60 mg b.i.d., Claritin, guaifenesin, Januvia, Lantus insulin, Tylenol, multivitamins, Senna, vitamin C, amlodipine, Lac-Hydrin, atorvastatin, azithromycin, furosemide, gabapentin, isosorbide, Protonix, MiraLAX, potassium, Ramipril, and Valtrex. SOCIAL HISTORY: She is retired. She resides at the assisted living. There is no history of any cigarette or substance use. REVIEW OF SYSTEMS: As per HPI. She is resting comfortably. She still reports abdominal discomfort. PHYSICAL EXAMINATION Vital signs: Temperature is 98.1, pulse is 70, blood pressure is 106/48, respiratory rate 18, she is saturating 97% on 2 L. HEENT: She is normocephalic. Her eyes are anicteric. Neck: Supple. She has no thrush. Lungs: Clear to auscultation. She has diminished breath sounds at the bases. She has scattered wheezing and rhonchi. Heart: Regular rate and rhythm. Abdomen: Soft. On the left side, she has left abdominal discomfort on palpation. She has no rebound. Extremities: Trace edema extending up to her pretibial area, which she states is chronic. . DIAGNOSTIC DATA: White count is 6000 with 9.4 yesterday, hemoglobin 11.2, platelets of 164. BUN 46, creatinine 1.8, alkaline phosphatase 136. Urinalysis is 3+ leukocyte esterase with 26 white cells. Cultures are pending. SUMMARY: This is an 82-year-old woman with persistent cough for 4 days, now admitted with left-sided pain. She has on CT interestingly a right-sided infiltrate and no abdominal pathology. As well, she has some pyuria. There is no evidence of any hydronephrosis. I suspect she has urinary tract infection. I suspect she has probable pneumonia. Cultures have been seen with screen for influenza as well. Obtain a legionella urinary antigen. Would treat her with Rocephin and Zithromax for community-acquired pneumonia. For possible urinary tract infection, ceftriaxone should be adequate coverage. She has abdominal pain of unclear etiology. Not clear if it is secondary to coughing. If it is persistent, would consider gastrointestinal evaluation. Lastly acute kidney injury, needs intravenous hydration and Renal has been called. Further recommendations to follow based on her clinical course. SKIP ANDRADE M.D. [id number]
[2017-08-08] MEDS: methylPREDNISolone NA SUCC 40 MG/1 ML VIAL IVPUSH SCH ×2 (15:11→20:20)
--- NOTE | 2017-08-08 18:09 | HP ---
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: Peripheral Neuropathy Cardiovascular: Yes: CAD, CHF, HTN, CT (10/02/2015 resulting in a single stent insertion) Gastrointestinal: Yes: Diverticulosis, Peptic Ulcer Disease, Other (colon polyp) Hepatobiliary: Yes: Cholecystitis (prior cholecystitis s/p perc roxana tube from 11/2013-02/2014), Choledocholithiasis (resolved spontaneously) Renal/: Yes: Renal Failure (on prior admission- resolved) Heme/Onc: No: Anemia, B12 Deficiency, Bleeding Disorder, Cancer, Current Chemotherapy, Current Radiation Therapy, Hemochromatosis, Hypercoaguable State, Myeloproliferative Synd, Sickle Cell Disease, Sickle Cell Trait, Thrombocytopenia, Other Rheumatology: Yes: Gout Endocrine: Yes: Diabetes Mellitus (c/b peripheral neuropathy) Dermatology: Yes: 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, 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) - Past Surgical History Past Surgical History: Yes: Cholecystectomy (Lap Choly), Colonoscopy, Hysterectomy (TAHBSO), Tonsillectomy - Smoking History Smoking history: Never smoked Have you smoked in the past 12 months: No Aproximately how many cigarettes per day: 0 - Alcohol/Substance Use Hx Alcohol Use: No History of Substance Use: reports: None - Social History ADL: Support Services 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 History of Recent Travel: No Home Medications - Allergies Allergies/Adverse Reactions: Allergies Allergy/AdvReac Type Severity Reaction Status Date / Time No Known Drug Allergies Allergy Verified 08/07/17 14:57 TOMATO SAUCE ONLY Allergy Uncoded 08/07/17 14:57 - Home Medications Home Medications: Ambulatory Orders Acetaminophen [Tylenol] 650 mg PO BID PRN 08/07/17 Amlodipine Besylate 5 mg PO DAILY 08/07/17 Ammonium Lactate [Skin Treatment] 1 applic TP DAILY 08/07/17 Ascorbic Acid [Vitamin C -] 500 mg PO DAILY 08/07/17 Aspirin [ASA -] 81 mg PO DAILY 08/07/17 Atorvastatin Ca [Lipitor] 40 mg PO DAILY 08/07/17 Bacitracin - [Bacitracin Topical Ointment -] 1 applic TP PRN PRN 08/07/17 Gabapentin 300 mg PO TID 08/07/17 Hypromellose 0.5% Opth Soln [Artificial Tears] 1 drop OU QID PRN 08/07/17 Insulin Glargine,Hum.rec.anlog [Lantus (10mL VIAL) -] 35 units SQ HS 08/07/17 Isosorbide Mononitrate [Isosorbide Mononitrate ER] 30 mg PO DAILY 08/07/17 Loratadine [Claritin] 10 mg PO DAILY 08/07/17 Multivitamin [One Daily] 1 each PO DAILY 08/07/17 Pantoprazole Sodium 40 mg PO BID 08/07/17 Polyethylene Glycol 3350 [Miralax 119 gm Btl -] 17 gm PO DAILY 08/07/17 Ramipril 10 mg PO DAILY 08/07/17 Ticagrelor [Brilinta] 60 mg PO BID 08/07/17 Furosemide [Lasix -] 40 mg PO BID #14 tablet MDD 2 08/14/17 Insulin (Levemir) [Levemir Vial] 15 units SQ AM ml 08/14/17 Prednisone [Deltasone -] 2.5 mg PO DAILY #7 tablet MDD 2 08/14/17 Sitagliptin Phosphate [Januvia -] 25 mg PO DAILY@0700 tab 08/14/17 Tamsulosin HCl [Flomax -] 0.4 mg PO DAILY@0830 #30 cap.er.24h MDD 1 08/14/17 Family Disease History - Family Disease History Family Disease History: Diabetes: Sister ( of CLOUD rt cirrhosis ), Heart Disease: Father ( at age 33 [address]), Brother ( after CABG), CA: Mother ( of Ovarian cancer at age 57), Other: Sister Review of Systems - Review of Systems Constitutional: reports: No Symptoms Eyes: reports: No Symptoms Physical Examination Vital Signs: Vital Signs Temperature 98.2 F 08/08/17 15:49 Pulse Rate 68 08/08/17 15:49 Respiratory Rate 20 08/08/17 15:49 Blood Pressure 99/57 08/08/17 15:49 O2 Sat by Pulse Oximetry (%) 95 08/08/17 09:00 Labs: CBC, BMP 08/08/17 06:30 08/08/17 06:30
[2017-08-08] MEDS: AMMONIUM LACTATE 12% LOTION 225 GM BOTTLE TP SCH (18:43)
--- NOTE | 2017-08-08 19:33 | CONS ---
DATE OF CONSULTATION: 08/08/2017 RERFERRING PHYSICIAN: Tyra Lee MD This is an 82-year-old white female, known to me, with past medical history of ASHD, status post stent years ago, history of chronic kidney disease, hypertension, noninsulin-dependent diabetes mellitus, hypercholesterolemia, congestive heart failure, snf resident transferred to [facility] with complaints of abdominal pain and lethargy. Apparently the patient developed a cough prior to this admission. At the time, the patient was started on Zithromax. Denies any fevers, chills, nausea, or vomiting. Apparently yesterday she started developing abdominal pain of sudden onset and lethargy after taking an unknown medication. She said that she presented to the emergency room with the above. On admission to the emergency room she was noted to be awake and alert. She underwent a CT scan of the abdomen, which revealed a right lower lobe infiltrate. She was transferred to the floor for further management. She was evaluated by Dr. Pat from Infectious Disease and placed on broad-spectrum antibiotics. Patient denies a history of occupational exposure to chemicals. She is a nonsmoker. She denies any history of COPD or asthma in the past. She has no history of recent travel. There is no history of DVT or PE in the past. 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 REVIEW OF SYSTEMS: No orthopnea. Positive cough. Minimal white-yellow sputum. No chest pain. No palpitations. Positive shortness of breath. Positive wheezing. No abdominal discomfort. No lower extremity edema. CURRENT MEDICATIONS: Lotemax, Flomax, Tylenol, Altace, Zithromax, ceftriaxone, Neurontin, bacitracin, MiraLAX, amlodipine, Norvasc, Januvia, Lipitor, NovoLog, Levemir, Imdur, aspirin, Brilinta, Protonix, and vitamin C. PHYSICAL EXAMINATION: General: The patient is an elderly, white female, awake, alert, in no acute distress. Vital signs: She is currently afebrile. Blood pressure is 106/48, respiratory rate 18, O2 saturation is 97% on 2 L. HEENT: Normocephalic, atraumatic. Neck: Supple. Heart: Regular. S1, S2. Lungs: Scattered bilateral wheezes. Abdomen: Soft. Bowel sounds are positive. Extremities: No cyanosis or edema. LABORATORY: WBC is 6, hemoglobin 11.2, hematocrit 33.2, platelet count of 164,000. INR is 1.10. Venous blood gas: pH of 7.33, PCO2 of 46, PO2 of 24, BUN 46, creatinine 1.8. Abdominal and pelvic CT revealed no evidence of bowel obstruction or acute pathology in the abdomen. There is a patchy consolidation of right lower lobe. IMPRESSION: 1. Right lower lobe pneumonia. 2. Chest congestion secondary to pneumonia. 3. Ngnvb-wh-cfscmzh kidney disease. 4. Abdominal pain. 5. Atherosclerotic heart disease. 6. Status post myocardial infarction. 7. Status post stents. 8. Noninsulin-dependent diabetes mellitus. 9. Hypertension. PLAN: IV antibiotics per Infectious Disease and inhaled bronchodilators and supplemental O2. Solu-Medrol every 24 hours. Cultures and follow up chest CT to document resolution of infiltrates. Sputum for culture and sensitivity. Legionella urine antigen. CHIDI MCKINLEY M.D. [id number]
[2017-08-08] MEDS: ATORVASTATIN CA 40 MG TABLET (FP) PO SCH (22:26)
--- NOTE | 2017-08-09 00:47 | CONSULT ---
Consult Consult Specialty:: endocrine Referred by:: roldan magaña NP Reason for Consultation:: diabetes mellitus - History of Present Illness Chief Complaint: short of breath coughing History of Present Illness: 82 year old female with PMH of HTN, high cholesterol, NIDDM, h/o ID with stent ( 2 years prior on aspirin and Ticagrelor), CAD/CHF, and CKD presenting from intermediate with sudden onset abdominal pain and lethargy after taking an unknown pain medication between 12:00 and 13:00 on the day of presentation. 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 History of Recent Travel: No Home Medications - Allergies Allergies/Adverse Reactions: Allergies Allergy/AdvReac Type Severity Reaction Status Date / Time No Known Drug Allergies Allergy Verified 08/07/17 14:57 TOMATO SAUCE ONLY Allergy Uncoded 08/07/17 14:57 - Home Medications Home Medications: Ambulatory Orders Acetaminophen [Tylenol] 650 mg PO BID PRN 08/07/17 Amlodipine Besylate 5 mg PO DAILY 08/07/17 Ammonium Lactate [Skin Treatment] 1 applic TP DAILY 08/07/17 Ascorbic Acid [Vitamin C -] 500 mg PO DAILY 08/07/17 Aspirin [ASA -] 81 mg PO DAILY 08/07/17 Atorvastatin Ca [Lipitor] 40 mg PO DAILY 08/07/17 Azithromycin 500 mg PO ONCE 08/07/17 Bacitracin - [Bacitracin Topical Ointment -] 1 applic TP PRN PRN 08/07/17 Furosemide [Lasix -] 40 mg PO ASDIR 08/07/17 Gabapentin 300 mg PO TID 08/07/17 Guaifenesin 400 mg PO DAILY 08/07/17 Hydrocortisone Butyrate 15 gm TP BID 08/07/17 Hypromellose 0.5% Opth Soln [Artificial Tears] 1 drop OU QID PRN 08/07/17 Insulin Glargine,Hum.rec.anlog [Lantus (nf)] 35 units SQ HS 08/07/17 Isosorbide Mononitrate [Isosorbide Mononitrate ER] 30 mg PO DAILY 08/07/17 Loratadine [Claritin] 10 mg PO DAILY 08/07/17 Loteprednol Etab 0.5% Oph Susp [Lotemax (Nf)] 1 drop OS TID 08/07/17 Multivitamin [One Daily] 1 each PO DAILY 08/07/17 Pantoprazole Sodium 40 mg PO BID 08/07/17 Polyethylene Glycol 3350 [Miralax (For Daily Use) -] 17 gm PO DAILY 08/07/17 Potassium Chloride 20 meq PO DAILY 08/07/17 Ramipril 10 mg PO DAILY 08/07/17 Sennosides [Senna -] 1 tab PO ASDIR 08/07/17 Sitagliptin Phosphate [Januvia] 50 mg PO DAILY 08/07/17 Ticagrelor [Brilinta] 60 mg PO BID 08/07/17 Valacyclovir HCl [Valtrex -] 1,000 mg PO BID 08/07/17 Family Disease History - Family Disease History Family Disease History: Diabetes: Sister ( of CLOUD rt cirrhosis ), Heart Disease: Father ( at age 33 with ID), Brother ( after CABG), CA: Mother ( of Ovarian cancer at age 57), Other: Sister Review of Systems - Review of Systems Constitutional: reports: Loss of Appetite, Weakness Eyes: reports: No Symptoms HENT: reports: Nasal Congestion Neck: reports: No Symptoms Cardiovascular: reports: Shortness of Breath Respiratory: reports: Exercise Intolerance Gastrointestinal: reports: Constipation Genitourinary: reports: No Symptoms Breasts: reports: No Symptoms Reported Musculoskeletal: reports: Muscle Weakness Integumentary: reports: No Symptoms Neurological: reports: Numbness, Weakness Physical Exam Vital Signs: Vital Signs Temperature 97.9 F 08/08/17 17:35 Pulse Rate 69 08/08/17 17:35 Respiratory Rate 20 08/08/17 17:35 Blood Pressure 118/50 08/08/17 17:35 O2 Sat by Pulse Oximetry (%) 95 08/08/17 09:00 Constitutional: Yes: Calm Eyes: Yes: EOM Intact HENT: Yes: Normocephalic Neck: Yes: Trachea Midline Cardiovascular: Yes: Tachycardia Respiratory: Yes: Rhonchi, Tachypnea, Wheezes Gastrointestinal: Yes: Normal Bowel Sounds ...Rectal Exam: Yes: Deferred Renal/: Yes: WNL Musculoskeletal: Yes: Muscle Weakness Extremities: Yes: WNL Neurological: Yes: Alert, Oriented Labs: CBC, BMP 08/08/17 06:30 08/08/17 06:30 Problem List - Problems (1) Type 2 diabetes mellitus with hyperosmolarity without nonketotic hyperglycemic-hyperosmolar coma ([facility]) Code(s): E11.00 - TYPE 2 DIAB W HYPROSM W/O NONKET HYPRGLY-HYPROS COMA ([facility]) (2) Type 2 diabetes mellitus with diabetic chronic kidney disease Code(s): E11.22 - TYPE 2 DIABETES MELLITUS W DIABETIC CHRONIC KIDNEY DISEASE (3) CAROLYN (acute kidney injury) Code(s): N17.9 - ACUTE KIDNEY FAILURE, UNSPECIFIED (4) Dyspnea Code(s): R06.00 - DYSPNEA, UNSPECIFIED (5) Pneumonia Code(s): J18.9 - PNEUMONIA, UNSPECIFIED ORGANISM (6) ACS (acute coronary syndrome) Code(s): I24.9 - ACUTE ISCHEMIC HEART DISEASE, UNSPECIFIED (7) Abdominal pain Code(s): R10.9 - UNSPECIFIED ABDOMINAL PAIN Qualifiers: Abdominal location: generalized Qualified Code(s): R10.84 - Generalized abdominal pain (8) Alkaline phosphatase elevation Code(s): R74.8 - ABNORMAL LEVELS OF OTHER SERUM ENZYMES Assessment/Plan Current Active Problems CAROLYN (acute kidney injury) (Acute) Dyspnea (Acute) Pneumonia (Acute) diabetes mellitus hyperglycemia ckd htn ashd Abnormal Lab Results 08/08/17 08/08/17 06:30 06:30 RDW 22.1 H Monocytes % 13.7 H BUN 46 H Creatinine 1.8 H D Random Glucose 134 H D Calcium 8.0 L Alkaline Phosphatase 136 H D Total Protein 5.9 L Albumin 3.1 L Laboratory Results - last 24 hr 08/08/17 08/08/17 08/08/17 00:26 06:08 06:30 WBC 6.0 D RBC 3.65 Hgb 11.2 Hct 33.2 MCV 91.0 MCH 30.6 MCHC 33.7 RDW 22.1 H Plt Count 164 D MPV 9.6 Neutrophils % 69.6 Lymphocytes % 14.3 D Monocytes % 13.7 H Eosinophils % 2.2 D Basophils % 0.2 Hypochromia 0 Platelet Estimate Decreased Polychromasia 0 Poikilocytosis 1+ Anisocytosis 3+ Microcytosis 3+ Macrocytosis 0 Sodium Potassium Chloride Carbon Dioxide Anion Gap BUN Creatinine Creat Clearance w eGFR POC Glucometer 158 133 Random Glucose Calcium Total Bilirubin AST ALT Alkaline Phosphatase B-Natriuretic Peptide Total Protein Albumin 08/08/17 08/08/17 08/08/17 06:30 11:12 17:17 WBC RBC Hgb Hct MCV MCH MCHC RDW Plt Count MPV Neutrophils % Lymphocytes % Monocytes % Eosinophils % Basophils % Hypochromia Platelet Estimate Polychromasia Poikilocytosis Anisocytosis Microcytosis Macrocytosis Sodium 139 Potassium 4.3 D Chloride 106 Carbon Dioxide 22 Anion Gap 11 BUN 46 H Creatinine 1.8 H D Creat Clearance w eGFR 26.81 POC Glucometer 163 185 Random Glucose 134 H D Calcium 8.0 L Total Bilirubin 0.5 AST 19 ALT 27 Alkaline Phosphatase 136 H D B-Natriuretic Peptide Total Protein 5.9 L Albumin 3.1 L 08/08/17 08/08/17 19:30 22:32 WBC RBC Hgb Hct MCV MCH MCHC RDW Plt Count MPV Neutrophils % Lymphocytes % Monocytes % Eosinophils % Basophils % Hypochromia Platelet Estimate Polychromasia Poikilocytosis Anisocytosis Microcytosis Macrocytosis Sodium Potassium Chloride Carbon Dioxide Anion Gap BUN Creatinine Creat Clearance w eGFR POC Glucometer 332 Random Glucose Calcium Total Bilirubin AST ALT Alkaline Phosphatase B-Natriuretic Peptide 229.99 Total Protein Albumin plan: Current Medications Generic Name Dose Route Start Last Admin Trade Name Freq PRN Reason Stop Dose Admin Acetaminophen 650 mg 08/07/17 19:50 Tylenol - PO BID PRN PAIN Albuterol/Ipratropium 1 amp 08/08/17 12:53 Duoneb - NEB Q4H PRN SHORTNESS OF BREATH Amlodipine Besylate 5 mg 08/08/17 10:00 08/08/17 09:36 Norvasc - PO Not Given DAILY JOSE ELIAS Ascorbic Acid 500 mg 08/08/17 10:00 08/08/17 09:33 Vitamin C - PO 500 mg DAILY JOSE ELIAS Administration Aspirin 81 mg 08/08/17 10:00 08/08/17 09:33 Asa - PO 81 mg DAILY JOSE ELIAS Administration Atorvastatin Calcium 40 mg 08/07/17 22:00 08/08/17 22:26 Lipitor - PO 40 mg HS JOSE ELIAS Administration Bacitracin 1 applic 08/07/17 19:50 Bacitracin - TP DAILY PRN skin Gabapentin 300 mg 08/07/17 22:00 08/08/17 22:26 Neurontin - PO 300 mg TID JOSE ELIAS Administration Sodium Chloride 1,000 mls @ 75 mls/hr 08/07/17 20:00 08/08/17 20:18 1/2 Normal Saline IV Not Given ASDIR JOSE ELIAS CEFTRIAXONE 1 G/50 ML PREMIX 50 mls @ 100 mls/hr 08/08/17 10:00 08/08/17 09: 34 Ceftriaxone 1 Gm-D5w Bag IVPB 100 mls/hr DAILY JOSE ELIAS Administration Azithromycin 500 mg/ Dextrose 250 mls @ 250 mls/hr 08/08/17 13:00 08/08/17 14 :08 IVPB 250 mls/hr DAILY JOSE ELIAS Administration Insulin Aspart 1 vial 08/07/17 22:00 08/08/17 22:33 Novolog Vial Sliding Scale - SQ 7 unit ACHS JOSE ELIAS Administration Protocol Insulin Detemir 35 units 08/07/17 22:00 08/08/17 22:27 Levemir Vial SQ 35 unit HS JOSE ELIAS Administration Isosorbide Mononitrate 30 mg 08/08/17 10:00 08/08/17 09:33 Imdur - PO 30 mg DAILY JOSE ELIAS Administration Lactic Acid 1 applic 08/08/17 10:00 08/08/17 18:43 Lac-Hydrin 12 TP Not Given DAILY JOSE ELIAS Methylprednisolone Sodium Succinate 40 mg 08/08/17 15:00 08/08/17 20:20 Solu-Medrol - IVPUSH 40 mg Q6H-IV JOSE ELIAS Administration Non-Formulary Medication 1 drop 08/07/17 19:50 Hypromellose 0.5% Opth Soln [Artificial Tears] OU QID PRN DRY EYES Non-Formulary Medication 1 drop 08/07/17 22:00 Loteprednol Etab 0.5% Oph Susp [Lotemax (Nf)] OS TID JOSE ELIAS Pantoprazole Sodium 40 mg 08/07/17 22:00 08/08/17 22:26 Protonix - PO 40 mg BID JOSE ELIAS Administration Polyethylene Glycol 17 gm 08/08/17 10:00 08/08/17 09:44 Miralax (For Daily Use) - PO 17 grams DAILY JOSE ELIAS Administration Ramipril 10 mg 08/08/17 10:00 08/08/17 09:36 Altace - PO Not Given DAILY [facility] Sitagliptin Phosphate 25 mg 08/08/17 07:00 08/08/17 09:33 Januvia - PO 25 mg DAILY@0700 [facility] Administration Tamsulosin HCl 0.4 mg 08/09/17 08:30 Flomax - PO DAILY@0830 [facility] Ticagrelor 60 mg 08/07/17 22:00 08/08/17 22:27 Brilinta PO 60 mg BID JOSE ELIAS Administration check bgm qid novolog insulin will need high doses insulin as steroid will raise sugars ck hba1c add levemir 15 am if sugar elevated
[2017-08-09] MEDS: methylPREDNISolone NA SUCC 40 MG/1 ML VIAL IVPUSH SCH ×4 (02:54→21:42)
[2017-08-09] MEDS: SODIUM CHLORIDE 0.45% 1,000 ML IV SCH (03:44)
[2017-08-09] MEDS: GABAPENTIN 300 MG CAPSULE (FP) PO SCH ×3 (06:16→21:37)
[2017-08-09] MEDS: INSULIN SLIDING SCALE (NOVOLOG) 1 VIAL SQ SCH ×4 (06:16→21:30)
[2017-08-09] MEDS: sitaGLIPtin PHOSPHATE 25 MG TABLET (FP) PO SCH (06:19)
[2017-08-09] MEDS ORDERED: INSULIN DETEMIR 100 UNITS/ML MDV SQ SCH (07:00)
[2017-08-09] MEDS: TAMSULOSIN HCL 0.4 MG CAP.ER.24H (FP) PO SCH (08:15)
[2017-08-09 08:42] LABS: BASO % 0.1 % (0-2.0); EOS % 0.1 % (0-4.5); MCH 30.1 pg (25.7-33.7); MCHC 33.4 g/dl (32.0-36.0); MEAN CELL VOLUME 90.1 fl (80-96); MEAN PLT VOLUME 9.5 fl (7.5-11.1); NEUT % 87.1 % (42.8-82.8); PLATELET COUNT 153 K/MM3 (134-434); WHITE BLOOD COUNT 4.3 K/mm3 (4.0-10.0)
--- NOTE | 2017-08-09 09:30 | PN ---
Progress Note (short form) - Note Progress Note: PULMONARY Still with productive cough, shortness of breath and wheezing. No fevers or chills Last Vital Signs Temp Pulse Resp BP Pulse Ox 97.5 F L 62 19 149/70 97 08/09/17 06:00 08/09/17 06:00 08/09/17 06:00 08/09/17 06:00 08/08/17 21:00 Gen: mildly tachypneic with speaking Heart: RRR Lung: right base rales Abd: soft, nontender Ext: no edema CBC, BMP 08/09/17 06:00 Active Medications Acetaminophen (Tylenol -) 650 mg PO BID PRN PRN Reason: PAIN Last Admin: 08/09/17 03:40 Dose: 650 mg Albuterol/Ipratropium (Duoneb -) 1 amp NEB Q4H PRN PRN Reason: SHORTNESS OF BREATH Amlodipine Besylate (Norvasc -) 5 mg PO DAILY [facility] Last Admin: 08/08/17 09:36 Dose: Not Given Ascorbic Acid (Vitamin C -) 500 mg PO DAILY [facility] Last Admin: 08/08/17 09:33 Dose: 500 mg Aspirin (Asa -) 81 mg PO DAILY [facility] Last Admin: 08/08/17 09:33 Dose: 81 mg Atorvastatin Calcium (Lipitor -) 40 mg PO HS [facility] Last Admin: 08/08/17 22:26 Dose: 40 mg Bacitracin (Bacitracin -) 1 applic TP DAILY PRN PRN Reason: skin Gabapentin (Neurontin -) 300 mg PO TID [facility] Last Admin: 08/09/17 06:16 Dose: 300 mg Sodium Chloride (1/2 Normal Saline) 1,000 mls @ 75 mls/hr IV ASDIR [facility] Last Admin: 08/09/17 03:44 Dose: 75 mls/hr CEFTRIAXONE 1 G/50 ML PREMIX (Ceftriaxone 1 Gm-D5w Bag) 50 mls @ 100 mls/hr IVPB DAILY [facility] Last Admin: 08/08/17 09:34 Dose: 100 mls/hr Azithromycin 500 mg/ Dextrose 250 mls @ 250 mls/hr IVPB DAILY [facility] Last Admin: 08/08/17 14:08 Dose: 250 mls/hr Insulin Aspart (Novolog Vial Sliding Scale -) 1 vial SQ ACHS [facility] PRN Reason: Protocol Last Admin: 08/09/17 06:16 Dose: 2 unit Insulin Detemir (Levemir Vial) 35 units SQ HS [facility] Last Admin: 08/08/17 22:27 Dose: 35 unit Insulin Detemir (Levemir Vial) 15 units SQ AM [facility] Isosorbide Mononitrate (Imdur -) 30 mg PO DAILY [facility] Last Admin: 08/08/17 09:33 Dose: 30 mg Lactic Acid (Lac-Hydrin 12) 1 applic TP DAILY [facility] Last Admin: 08/08/17 18:43 Dose: Not Given Methylprednisolone Sodium Succinate (Solu-Medrol -) 40 mg IVPUSH Q6H-IV [facility] Last Admin: 08/09/17 02:54 Dose: 40 mg Non-Formulary Medication (Hypromellose 0.5% Opth Soln [Artificial Tears]) 1 drop OU QID PRN PRN Reason: DRY EYES Non-Formulary Medication (Loteprednol Etab 0.5% Oph Susp [Lotemax (Nf)]) 1 drop OS TID [facility] Pantoprazole Sodium (Protonix -) 40 mg PO BID [facility] Last Admin: 08/08/17 22:26 Dose: 40 mg Polyethylene Glycol (Miralax (For Daily Use) -) 17 gm PO DAILY [facility] Last Admin: 08/08/17 09:44 Dose: 17 grams Ramipril (Altace -) 10 mg PO DAILY [facility] Last Admin: 08/08/17 09:36 Dose: Not Given Sitagliptin Phosphate (Januvia -) 25 mg PO DAILY@0700 [facility] Last Admin: 08/09/17 06:19 Dose: 25 mg Tamsulosin HCl (Flomax -) 0.4 mg PO DAILY@0830 [facility] Last Admin: 08/09/17 08:15 Dose: 0.4 mg Ticagrelor (Brilinta) 60 mg PO BID [facility] Last Admin: 08/08/17 22:27 Dose: 60 mg A/P Pneumonia UTI CAD LV Diastolic Dysfunction Acute on Chronic Renal Failure HTN DM - continue antibiotics - f/u cultures - inhaled bronchodilators - will decrease medrol to q12h - O2 to keep Spo2 >90% - IVF - monitor urine output, creatinine - DVT prophylaxis
[2017-08-09] MEDS: INSULIN DETEMIR 100 UNITS/ML MDV SQ SCH ×2 (09:34→21:34)
[2017-08-09] MEDS: PANTOPRAZOLE 40 MG TABLET (FP) PO SCH ×2 (09:40→21:37)
[2017-08-09] MEDS: RAMIPRIL 5 MG CAPSULE (FP) PO SCH (09:40)
[2017-08-09] MEDS: amLODIPine BESYLATE 5 MG TABLET (FP) PO SCH (09:40)
[2017-08-09] MEDS: ASCORBIC ACID 500 MG TABLET (FP) PO SCH (09:41)
[2017-08-09] MEDS: ISOSORBIDE MONONITRATE 30 MG TAB.SR.24H (FP) PO SCH (09:41)
[2017-08-09] MEDS: ASPIRIN 81 MG CHEWABLE TABLETS PO SCH (09:41)
[2017-08-09] MEDS: CEFTRIAXONE 1 G/50 ML PREMIX 50 ML IVPB SCH (09:42)
[2017-08-09] MEDS: TICAGRELOR 60 MG TABLET PO SCH ×2 (09:43→21:36)
[2017-08-09 09:48] LABS: ALBUMIN 3.2 g/dl (3.4-5.0); ALK PHOS 147 U/L (45-117); ANION GAP 12 (8-16); BILIRUBIN,TOTAL 0.4 mg/dL (0.2-1.0); CALCIUM 8.4 mg/dL (8.5-10.1); CO2 21 mmol/L (21-32); CREATININE 1.2 mg/dL (0.55-1.02); GLUCOSE,RANDOM 245 mg/dL (74-106); SGOT/AST 20 U/L (15-37); SGPT/ALT 28 U/L (12-78); TOT PROT 6.5 g/dl (6.4-8.2)
--- NOTE | 2017-08-09 09:50 | PN ---
Progress Note, Physician Chief Complaint: abdominal pain History of Present Illness: -SOB and wheezing -seen by pulmonary -on neb tx PRN -IV abx -seen by ID -culture negative so far -UC pending Microbiology 08/07/17 14:47 Blood - Peripheral Venous Blood Culture - Preliminary NO GROWTH OBTAINED AFTER 24 HOURS, INCUBATION TO CONTINUE FOR 4 DAYS. 08/07/17 14:47 Blood - Peripheral Venous Blood Culture - Preliminary NO GROWTH OBTAINED AFTER 24 HOURS, INCUBATION TO CONTINUE FOR 4 DAYS. 08/08/17 13:00 Nasopharyngeal Swab Influenza Types A,B Antigen (NICK) - Final 08/08/17 13:00 Nasopharyngeal Swab - Final 08/08/17 13:00 Urine For Antigen Detection Legionella Antigen - Final 08/08/17 13:00 Urine For Antigen Detection Streptococcus pneumoniae Antigen (M - Final - Current Medication List Current Medications: Active Medications Acetaminophen (Tylenol -) 650 mg PO BID PRN PRN Reason: PAIN Last Admin: 08/09/17 03:40 Dose: 650 mg Albuterol/Ipratropium (Duoneb -) 1 amp NEB Q4H PRN PRN Reason: SHORTNESS OF BREATH Amlodipine Besylate (Norvasc -) 5 mg PO DAILY [facility] Last Admin: 08/09/17 09:40 Dose: 5 mg Ascorbic Acid (Vitamin C -) 500 mg PO DAILY [facility] Last Admin: 08/09/17 09:41 Dose: 500 mg Aspirin (Asa -) 81 mg PO DAILY [facility] Last Admin: 08/09/17 09:41 Dose: 81 mg Atorvastatin Calcium (Lipitor -) 40 mg PO HS [facility] Last Admin: 08/08/17 22:26 Dose: 40 mg Bacitracin (Bacitracin -) 1 applic TP DAILY PRN PRN Reason: skin Gabapentin (Neurontin -) 300 mg PO TID [facility] Last Admin: 08/09/17 06:16 Dose: 300 mg Sodium Chloride (1/2 Normal Saline) 1,000 mls @ 75 mls/hr IV ASDIR [facility] Last Admin: 08/09/17 03:44 Dose: 75 mls/hr CEFTRIAXONE 1 G/50 ML PREMIX (Ceftriaxone 1 Gm-D5w Bag) 50 mls @ 100 mls/hr IVPB DAILY [facility] Last Admin: 08/09/17 09:42 Dose: 100 mls/hr Azithromycin 500 mg/ Dextrose 250 mls @ 250 mls/hr IVPB DAILY [facility] Last Admin: 08/08/17 14:08 Dose: 250 mls/hr Insulin Aspart (Novolog Vial Sliding Scale -) 1 vial SQ ACHS [facility] PRN Reason: Protocol Last Admin: 08/09/17 06:16 Dose: 2 unit Insulin Detemir (Levemir Vial) 35 units SQ HS [facility] Last Admin: 08/08/17 22:27 Dose: 35 unit Insulin Detemir (Levemir Vial) 15 units SQ AM [facility] Last Admin: 08/09/17 09:34 Dose: Not Given Isosorbide Mononitrate (Imdur -) 30 mg PO DAILY [facility] Last Admin: 08/09/17 09:41 Dose: 30 mg Lactic Acid (Lac-Hydrin 12) 1 applic TP DAILY [facility] Last Admin: 08/08/17 18:43 Dose: Not Given Methylprednisolone Sodium Succinate (Solu-Medrol -) 40 mg IVPUSH Q12H [facility] Non-Formulary Medication (Hypromellose 0.5% Opth Soln [Artificial Tears]) 1 drop OU QID PRN PRN Reason: DRY EYES Non-Formulary Medication (Loteprednol Etab 0.5% Oph Susp [Lotemax (Nf)]) 1 drop OS TID [facility] Pantoprazole Sodium (Protonix -) 40 mg PO BID [facility] Last Admin: 08/09/17 09:40 Dose: 40 mg Polyethylene Glycol (Miralax (For Daily Use) -) 17 gm PO DAILY [facility] Last Admin: 08/08/17 09:44 Dose: 17 grams Ramipril (Altace -) 10 mg PO DAILY [facility] Last Admin: 08/09/17 09:40 Dose: 10 mg Sitagliptin Phosphate (Januvia -) 25 mg PO DAILY@0700 [facility] Last Admin: 08/09/17 06:19 Dose: 25 mg Tamsulosin HCl (Flomax -) 0.4 mg PO DAILY@0830 [facility] Last Admin: 08/09/17 08:15 Dose: 0.4 mg Ticagrelor (Brilinta) 60 mg PO BID [facility] Last Admin: 08/09/17 09:43 Dose: 60 mg - Objective Vital Signs: Vital Signs Temperature 97.5 F L 08/09/17 06:00 Pulse Rate 62 08/09/17 06:00 Respiratory Rate 19 08/09/17 06:00 Blood Pressure 149/70 08/09/17 06:00 O2 Sat by Pulse Oximetry (%) 97 08/08/17 21:00 Constitutional: Yes: Well Nourished, No Distress, Calm Cardiovascular: Yes: Regular Rate and Rhythm Respiratory: Yes: Regular Edema: No Peripheral Pulses WNL: Yes Neurological: Yes: Alert Psychiatric: Yes: Alert Labs: CBC, BMP 08/09/17 06:00 INR, PTT INR 1.10 (0.82-1.09) 08/07/17 14:47 Problem List - Problems (1) CAROLYN (acute kidney injury) Code(s): N17.9 - ACUTE KIDNEY FAILURE, UNSPECIFIED (2) Dyspnea Assessment/Plan: -neb tx standing and PRN -nasal O2 -IV steroids -IV abx Code(s): R06.00 - DYSPNEA, UNSPECIFIED (3) Type 2 diabetes mellitus with diabetic chronic kidney disease Assessment/Plan: -Insulin long and short acting -Januvia -endocrinology consult appreciated Code(s): E11.22 - TYPE 2 DIABETES MELLITUS W DIABETIC CHRONIC KIDNEY DISEASE (4) Abdominal pain Code(s): R10.9 - UNSPECIFIED ABDOMINAL PAIN Qualifiers: Abdominal location: generalized Qualified Code(s): R10.84 - Generalized abdominal pain Assessment/Plan -see problem list
[2017-08-09] MEDS: AZITHROMYCIN IVPB 500 MG in DEXTROSE 5%-WATER - 250 ML IVPB SCH (10:41)
[2017-08-09] MEDS: POLYETHYLENE GLYCOL 3350 119 GM BTL PO SCH (10:43)
[2017-08-09] MEDS: AMMONIUM LACTATE 12% LOTION 225 GM BOTTLE TP SCH (10:43)
[2017-08-09] MEDS ORDERED: ALBUTEROL SO4 0.083% IH SOL 2.5 MG/3 ML VIAL.NEB. NEB PRN (11:36)
[2017-08-09] MEDS: guaiFENesin/D-M SUGAR-FREE/ACLHOL-FREE 118 ML BOTTLE PO PRN (11:58)
[2017-08-09] MEDS: ALBUTEROL SO4 2.5/IPRATROPIUM 0.5 INH SOL 3 ML VIAL.NEB. NEB SCH ×2 (15:10→22:25)
--- NOTE | 2017-08-09 17:16 | CONSULT ---
Consult Consult Specialty:: Nephrology - History of Present Illness Chief Complaint: abdominal pain History of Present Illness: Pt is an 82 year old female with pmhx of CKD who follows with me, DM, HTN, CHF and CAD who presents to the ER with abdominal pain. She was found to have elevated creatinine so I was called to evaluate her. She is being treated for a UTI. Her renal function is improving. She complains of worsening of her lower extremity edema. She feels abdominal pain is better. She does have some difficulty breathing when laying flat. 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 Left Ankle Fracture x2 - Past Surgical History Past Surgical History: Yes: Cholecystectomy (Lap Choly), Colonoscopy, Hysterectomy (TAHBSO), Tonsillectomy - Alcohol/Substance Use Hx Alcohol Use: No History of Substance Use: reports: None - Smoking History Smoking history: Never smoked Have you smoked in the past 12 months: No Aproximately how many cigarettes per day: 0 - Social History Usual Living Arrangement: Residential ADL: Support Services Occupation: Retired [employer] History of Recent Travel: No Home Medications - Allergies Allergies/Adverse Reactions: Allergies Allergy/AdvReac Type Severity Reaction Status Date / Time No Known Drug Allergies Allergy Verified 08/07/17 14:57 TOMATO SAUCE ONLY Allergy Uncoded 08/07/17 14:57 - Home Medications Home Medications: Ambulatory Orders Acetaminophen [Tylenol] 650 mg PO BID PRN 08/07/17 Amlodipine Besylate 5 mg PO DAILY 08/07/17 Ammonium Lactate [Skin Treatment] 1 applic TP DAILY 08/07/17 Ascorbic Acid [Vitamin C -] 500 mg PO DAILY 08/07/17 Aspirin [ASA -] 81 mg PO DAILY 08/07/17 Atorvastatin Ca [Lipitor] 40 mg PO DAILY 08/07/17 Azithromycin 500 mg PO ONCE 08/07/17 Bacitracin - [Bacitracin Topical Ointment -] 1 applic TP PRN PRN 08/07/17 Furosemide [Lasix -] 40 mg PO ASDIR 08/07/17 Gabapentin 300 mg PO TID 08/07/17 Guaifenesin 400 mg PO DAILY 08/07/17 Hydrocortisone Butyrate 15 gm TP BID 08/07/17 Hypromellose 0.5% Opth Soln [Artificial Tears] 1 drop OU QID PRN 08/07/17 Insulin Glargine,Hum.rec.anlog [Lantus (nf)] 35 units SQ HS 08/07/17 Isosorbide Mononitrate [Isosorbide Mononitrate ER] 30 mg PO DAILY 08/07/17 Loratadine [Claritin] 10 mg PO DAILY 08/07/17 Loteprednol Etab 0.5% Oph Susp [Lotemax (Nf)] 1 drop OS TID 08/07/17 Multivitamin [One Daily] 1 each PO DAILY 08/07/17 Pantoprazole Sodium 40 mg PO BID 08/07/17 Polyethylene Glycol 3350 [Miralax (For Daily Use) -] 17 gm PO DAILY 08/07/17 Potassium Chloride 20 meq PO DAILY 08/07/17 Ramipril 10 mg PO DAILY 08/07/17 Sennosides [Senna -] 1 tab PO ASDIR 08/07/17 Sitagliptin Phosphate [Januvia] 50 mg PO DAILY 08/07/17 Ticagrelor [Brilinta] 60 mg PO BID 08/07/17 Valacyclovir HCl [Valtrex -] 1,000 mg PO BID 08/07/17 Family Disease History - Family Disease History Family Disease History: Diabetes: Sister ( of CLOUD rt cirrhosis ), Heart Disease: Father ( at age 33 with NE), Brother ( after CABG), CA: Mother ( of Ovarian cancer at age 57), Other: Sister Review of Systems - Review of Systems Constitutional: reports: Chills, Malaise Eyes: reports: No Symptoms HENT: reports: No Symptoms Neck: reports: No Symptoms Cardiovascular: reports: Edema Respiratory: reports: Cough, SOB, SOB on Exertion Gastrointestinal: reports: Abdominal Pain Genitourinary: reports: No Symptoms Musculoskeletal: reports: Muscle Weakness Neurological: reports: No Symptoms Endocrine: reports: No Symptoms Psychiatric: reports: No Symptoms Physical Exam Vital Signs: Vital Signs Temperature 97.6 F 08/09/17 16:50 Pulse Rate 73 08/09/17 16:50 Respiratory Rate 20 08/09/17 16:50 Blood Pressure 125/59 08/09/17 16:50 O2 Sat by Pulse Oximetry (%) 97 08/09/17 09:00 Constitutional: Yes: Calm Eyes: Yes: Conjunctiva Clear HENT: Yes: Atraumatic Neck: Yes: Supple Cardiovascular: Yes: S1, S2 Respiratory: Yes: On Nasal O2 Gastrointestinal: Yes: Soft Renal/: Yes: Rodriguez Present Musculoskeletal: Yes: WNL Edema: Yes Edema: LLE: 2+, RLE: 2+ Neurological: Yes: Oriented Psychiatric: Yes: Oriented Labs: CBC, BMP 08/09/17 06:00 08/09/17 06:00 Laboratory Tests 04/04/17 04/06/17 07/24/17 06:20 06:10 11:20 Hgb Sodium Anion Gap BUN Creatinine 1.2 H 1.1 H 1.4 H Urine Blood 07/26/17 07/27/17 08/07/17 18:40 11:35 14:47 Hgb Sodium Anion Gap BUN Creatinine 1.7 H D 1.6 H Urine Blood 2+ H 08/07/17 08/08/17 08/08/17 14:47 06:30 06:30 Hgb 11.2 Sodium Anion Gap BUN Creatinine 2.3 H D 1.8 H D Urine Blood 08/09/17 08/09/17 06:00 06:00 Hgb 10.9 Sodium 141 Anion Gap 12 BUN 37 H Creatinine 1.2 H D Urine Blood Imaging - Results Chest X-ray: Report Reviewed Cat Scan: Report Reviewed Problem List - Problems (1) CKD (chronic kidney disease) Code(s): N18.9 - CHRONIC KIDNEY DISEASE, UNSPECIFIED (2) CAROLYN (acute kidney injury) Code(s): N17.9 - ACUTE KIDNEY FAILURE, UNSPECIFIED (3) Dyspnea Code(s): R06.00 - DYSPNEA, UNSPECIFIED (4) Pneumonia Code(s): J18.9 - PNEUMONIA, UNSPECIFIED ORGANISM (5) Type 2 diabetes mellitus with diabetic chronic kidney disease Code(s): E11.22 - TYPE 2 DIABETES MELLITUS W DIABETIC CHRONIC KIDNEY DISEASE (6) CHF (congestive heart failure) Code(s): I50.9 - HEART FAILURE, UNSPECIFIED Qualifiers: Congestive heart failure type: diastolic Congestive heart failure chronicity: chronic Qualified Code(s): I50.32 - Chronic diastolic (congestive ) heart failure Assessment/Plan Current Medications Generic Name Dose Route Start Last Admin Trade Name Freq PRN Reason Stop Dose Admin Acetaminophen 650 mg 08/07/17 19:50 08/09/17 03:40 Tylenol - PO 650 mg BID PRN Administration PAIN Albuterol Sulfate 1 amp 08/09/17 11:36 Ventolin 0.083% Nebulizer Soln - NEB Q4H PRN SHORT OF BREATH/WHEEZING Albuterol/Ipratropium 1 amp 08/09/17 11:45 08/09/17 15:10 Duoneb - NEB 1 amp TIDR [facility] Administration Amlodipine Besylate 5 mg 08/08/17 10:00 08/09/17 09:40 Norvasc - PO 5 mg DAILY [facility] Administration Artificial Tears 1 drop 08/07/17 19:50 Artificial Tears OU Q6H PRN DRY EYES Ascorbic Acid 500 mg 08/08/17 10:00 08/09/17 09:41 Vitamin C - PO 500 mg DAILY [facility] Administration Aspirin 81 mg 08/08/17 10:00 08/09/17 09:41 Asa - PO 81 mg DAILY [facility] Administration Atorvastatin Calcium 40 mg 08/07/17 22:00 08/08/17 22:26 Lipitor - PO 40 mg HS [facility] Administration Bacitracin 1 applic 08/07/17 19:50 Bacitracin - TP DAILY PRN skin Gabapentin 300 mg 08/07/17 22:00 08/09/17 14:44 Neurontin - PO 300 mg TID [facility] Administration Guaifenesin 10 ml 08/09/17 09:50 08/09/17 11:58 Diabetic Tussin Dm - PO 10 ml Q4H PRN Administration COUGH Sodium Chloride 1,000 mls @ 75 mls/hr 08/07/17 20:00 08/09/17 03:44 1/2 Normal Saline IV 75 mls/hr ASDIR [facility] Administration CEFTRIAXONE 1 G/50 ML PREMIX 50 mls @ 100 mls/hr 08/08/17 10:00 08/09/17 09: 42 Ceftriaxone 1 Gm-D5w Bag IVPB 100 mls/hr DAILY [facility] Administration Azithromycin 500 mg/ Dextrose 250 mls @ 250 mls/hr 08/08/17 13:00 08/09/17 10 :41 IVPB 250 mls/hr DAILY [facility] Administration Insulin Aspart 1 vial 08/07/17 22:00 08/09/17 17:11 Novolog Vial Sliding Scale - SQ 5 unit ACHS [facility] Administration Protocol Insulin Detemir 35 units 08/07/17 22:00 08/08/17 22:27 Levemir Vial SQ 35 unit HS [facility] Administration Insulin Detemir 15 units 08/09/17 07:00 08/09/17 09:34 Levemir Vial SQ Not Given AM [facility] Isosorbide Mononitrate 30 mg 08/08/17 10:00 08/09/17 09:41 Imdur - PO 30 mg DAILY [facility] Administration Lactic Acid 1 applic 08/08/17 10:00 08/09/17 10:43 Lac-Hydrin 12 TP Not Given DAILY [facility] Methylprednisolone Sodium Succinate 40 mg 08/09/17 10:30 08/09/17 10:42 Solu-Medrol - IVPUSH 40 mg BID [facility] Administration Non-Formulary Medication 1 drop 08/07/17 22:00 Loteprednol Etab 0.5% Oph Susp [Lotemax (Nf)] OS TID [facility] Pantoprazole Sodium 40 mg 08/07/17 22:00 08/09/17 09:40 Protonix - PO 40 mg BID [facility] Administration Polyethylene Glycol 17 gm 08/08/17 10:00 08/09/17 10:43 Miralax (For Daily Use) - PO Not Given DAILY [facility] Ramipril 10 mg 08/08/17 10:00 08/09/17 09:40 Altace - PO 10 mg DAILY [facility] Administration Sitagliptin Phosphate 25 mg 08/08/17 07:00 08/09/17 06:19 Januvia - PO 25 mg DAILY@0700 [facility] Administration Tamsulosin HCl 0.4 mg 08/09/17 08:30 08/09/17 08:15 Flomax - PO 0.4 mg DAILY@0830 [facility] Administration Ticagrelor 60 mg 08/07/17 22:00 08/09/17 09:43 Brilinta PO 60 mg BID [facility] Administration Impression 1. CAROLYN 2. UTI 3. CAD 4. HTN 5. DM 6. CHF 7. hyperlipidemia 8. renal cyst 9. CKD Plan - will stop fluids - renal function is improved - will give a dose of lasix - repeat labs in am - pt was on lasis 40 mg po twice a day as outpt - will follow Dr Hua
[2017-08-09] MEDS ORDERED: FUROSEMIDE 40 MG TABLET (FP) PO ONE (17:54)
[2017-08-09] MEDS: ATORVASTATIN CA 40 MG TABLET (FP) PO SCH (21:37)
[2017-08-10] MEDS: INSULIN SLIDING SCALE (NOVOLOG) 1 VIAL SQ SCH ×4 (06:09→22:05)
[2017-08-10] MEDS: GABAPENTIN 300 MG CAPSULE (FP) PO SCH ×3 (06:15→22:02)
[2017-08-10] MEDS: INSULIN DETEMIR 100 UNITS/ML MDV SQ SCH ×2 (06:16→22:07)
[2017-08-10] MEDS: sitaGLIPtin PHOSPHATE 25 MG TABLET (FP) PO SCH (06:18)
[2017-08-10] MEDS: ALBUTEROL SO4 2.5/IPRATROPIUM 0.5 INH SOL 3 ML VIAL.NEB. NEB SCH ×4 (06:24→22:41)
[2017-08-10 08:02] LABS: ALBUMIN 3.3 g/dl (3.4-5.0); ANION GAP 13 (8-16); BILIRUBIN,TOTAL 0.2 mg/dL (0.2-1.0); CALCIUM 8.9 mg/dL (8.5-10.1); CO2 22 mmol/L (21-32); CREATININE 1.3 mg/dL (0.55-1.02); SGOT/AST 10 U/L (15-37); SGPT/ALT 24 U/L (12-78); TOT PROT 6.4 g/dl (6.4-8.2)
[2017-08-10 08:03] LABS: ALK PHOS 135 U/L (45-117)
[2017-08-10] MEDS: TAMSULOSIN HCL 0.4 MG CAP.ER.24H (FP) PO SCH (08:18)
[2017-08-10 08:31] LABS: GLUCOSE,RANDOM 315 mg/dL (74-106)
[2017-08-10] MEDS: CEFTRIAXONE 1 G/50 ML PREMIX 50 ML IVPB SCH (09:17)
[2017-08-10] MEDS: ASPIRIN 81 MG CHEWABLE TABLETS PO SCH (09:17)
[2017-08-10] MEDS: methylPREDNISolone NA SUCC 40 MG/1 ML VIAL IVPUSH SCH ×2 (09:17→22:11)
[2017-08-10] MEDS: ASCORBIC ACID 500 MG TABLET (FP) PO SCH (09:18)
[2017-08-10] MEDS: TICAGRELOR 60 MG TABLET PO SCH ×2 (09:18→22:03)
[2017-08-10] MEDS: RAMIPRIL 5 MG CAPSULE (FP) PO SCH (09:18)
[2017-08-10] MEDS: PANTOPRAZOLE 40 MG TABLET (FP) PO SCH ×2 (09:18→22:02)
[2017-08-10] MEDS: amLODIPine BESYLATE 5 MG TABLET (FP) PO SCH (09:18)
[2017-08-10] MEDS: ISOSORBIDE MONONITRATE 30 MG TAB.SR.24H (FP) PO SCH (09:18)
[2017-08-10] MEDS: AMMONIUM LACTATE 12% LOTION 225 GM BOTTLE TP SCH (09:19)
[2017-08-10] MEDS: guaiFENesin/D-M SUGAR-FREE/ACLHOL-FREE 118 ML BOTTLE PO PRN (09:21)
[2017-08-10] MEDS: POLYETHYLENE GLYCOL 3350 119 GM BTL PO SCH (09:27)
[2017-08-10] MEDS: AZITHROMYCIN IVPB 500 MG in DEXTROSE 5%-WATER - 250 ML IVPB SCH (10:13)
--- NOTE | 2017-08-10 10:36 | PN ---
Progress Note, Physician Chief Complaint: abdominal pain History of Present Illness: -SOB and wheezing improved, although still coughing -seen by pulmonary -on neb tx standing and PRN -IV abx -seen by ID -UC positive for E Coli sensitive to ceftriaxone - Current Medication List Current Medications: Active Medications Acetaminophen (Tylenol -) 650 mg PO BID PRN PRN Reason: PAIN Last Admin: 08/09/17 03:40 Dose: 650 mg Albuterol Sulfate (Ventolin 0.083% Nebulizer Soln -) 1 amp NEB Q4H PRN PRN Reason: SHORT OF BREATH/WHEEZING Albuterol/Ipratropium (Duoneb -) 1 amp NEB TIDR [facility] Last Admin: 08/10/17 06:24 Dose: 1 amp Amlodipine Besylate (Norvasc -) 5 mg PO DAILY [facility] Last Admin: 08/10/17 09:18 Dose: 5 mg Artificial Tears (Artificial Tears) 1 drop OU Q6H PRN PRN Reason: DRY EYES Ascorbic Acid (Vitamin C -) 500 mg PO DAILY [facility] Last Admin: 08/10/17 09:18 Dose: 500 mg Aspirin (Asa -) 81 mg PO DAILY [facility] Last Admin: 08/10/17 09:17 Dose: 81 mg Atorvastatin Calcium (Lipitor -) 40 mg PO HS [facility] Last Admin: 08/09/17 21:37 Dose: 40 mg Bacitracin (Bacitracin -) 1 applic TP DAILY PRN PRN Reason: skin Gabapentin (Neurontin -) 300 mg PO TID [facility] Last Admin: 08/10/17 06:15 Dose: 300 mg Guaifenesin (Diabetic Tussin Dm -) 10 ml PO Q4H PRN PRN Reason: COUGH Last Admin: 08/10/17 09:21 Dose: 10 ml CEFTRIAXONE 1 G/50 ML PREMIX (Ceftriaxone 1 Gm-D5w Bag) 50 mls @ 100 mls/hr IVPB DAILY [facility] Last Admin: 08/10/17 09:17 Dose: 100 mls/hr Azithromycin 500 mg/ Dextrose 250 mls @ 250 mls/hr IVPB DAILY [facility] Last Admin: 08/10/17 10:13 Dose: 250 mls/hr Insulin Aspart (Novolog Vial Sliding Scale -) 1 vial SQ ACHS [facility] PRN Reason: Protocol Last Admin: 08/10/17 06:09 Dose: 7 unit Insulin Detemir (Levemir Vial) 35 units SQ HS [facility] Last Admin: 08/09/17 21:34 Dose: 35 unit Insulin Detemir (Levemir Vial) 15 units SQ AM [facility] Last Admin: 08/10/17 06:16 Dose: 15 unit Isosorbide Mononitrate (Imdur -) 30 mg PO DAILY [facility] Last Admin: 08/10/17 09:18 Dose: 30 mg Lactic Acid (Lac-Hydrin 12) 1 applic TP DAILY [facility] Last Admin: 08/10/17 09:19 Dose: 1 applic Methylprednisolone Sodium Succinate (Solu-Medrol -) 40 mg IVPUSH BID [facility] Last Admin: 08/10/17 09:17 Dose: 40 mg Non-Formulary Medication (Loteprednol Etab 0.5% Oph Susp [Lotemax (Nf)]) 1 drop OS TID [facility] Pantoprazole Sodium (Protonix -) 40 mg PO BID [facility] Last Admin: 08/10/17 09:18 Dose: 40 mg Polyethylene Glycol (Miralax (For Daily Use) -) 17 gm PO DAILY [facility] Last Admin: 08/10/17 09:27 Dose: Not Given Ramipril (Altace -) 10 mg PO DAILY [facility] Last Admin: 08/10/17 09:18 Dose: 10 mg Sitagliptin Phosphate (Januvia -) 25 mg PO DAILY@0700 [facility] Last Admin: 08/10/17 06:18 Dose: 25 mg Tamsulosin HCl (Flomax -) 0.4 mg PO DAILY@0830 [facility] Last Admin: 08/10/17 08:18 Dose: 0.4 mg Ticagrelor (Brilinta) 60 mg PO BID [facility] Last Admin: 08/10/17 09:18 Dose: 60 mg - Objective Vital Signs: Vital Signs Temperature 97.9 F 08/10/17 06:46 Pulse Rate 54 L 08/10/17 06:46 Respiratory Rate 20 08/10/17 06:46 Blood Pressure 133/64 08/10/17 06:46 O2 Sat by Pulse Oximetry (%) 96 08/09/17 21:00 Constitutional: Yes: Well Nourished, No Distress, Calm Cardiovascular: Yes: Regular Rate and Rhythm Respiratory: Yes: Regular Musculoskeletal: Yes: WNL Extremities: Yes: WNL Edema: Yes Edema: LLE: 1+, RLE: 1+ Peripheral Pulses WNL: Yes Neurological: Yes: Alert, Oriented Psychiatric: Yes: Alert, Oriented Labs: CBC, BMP 08/09/17 06:00 08/10/17 06:00 INR, PTT INR 1.10 (0.82-1.09) 08/07/17 14:47 Problem List - Problems (1) CAROLYN (acute kidney injury) Code(s): N17.9 - ACUTE KIDNEY FAILURE, UNSPECIFIED (2) Dyspnea Assessment/Plan: -neb tx standing and PRN -nasal O2 -IV steroids -IV abx Code(s): R06.00 - DYSPNEA, UNSPECIFIED (3) Type 2 diabetes mellitus with diabetic chronic kidney disease Assessment/Plan: -Insulin long and short acting -Januvia -endocrinology consult appreciated Code(s): E11.22 - TYPE 2 DIABETES MELLITUS W DIABETIC CHRONIC KIDNEY DISEASE (4) Abdominal pain Code(s): R10.9 - UNSPECIFIED ABDOMINAL PAIN Qualifiers: Abdominal location: generalized Qualified Code(s): R10.84 - Generalized abdominal pain (5) UTI (urinary tract infection) Assessment/Plan: -ID on board -IV abx d/c cavanaugh catheter, voiding trial -bladder scan in 12 hours Code(s): N39.0 - URINARY TRACT INFECTION, SITE NOT SPECIFIED Qualifiers: Urinary tract infection type: acute cystitis Hematuria presence: without hematuria Qualified Code(s): N30.00 - Acute cystitis without hematuria Assessment/Plan see problem list
--- NOTE | 2017-08-10 13:39 | PN ---
Progress Note, Physician Chief Complaint: ID Ceftriaxone and Azithromycin - Current Medication List Current Medications: Active Medications Acetaminophen (Tylenol -) 650 mg PO BID PRN PRN Reason: PAIN Last Admin: 08/09/17 03:40 Dose: 650 mg Albuterol Sulfate (Ventolin 0.083% Nebulizer Soln -) 1 amp NEB Q4H PRN PRN Reason: SHORT OF BREATH/WHEEZING Albuterol/Ipratropium (Duoneb -) 1 amp NEB TIDR [facility] Last Admin: 08/10/17 12:01 Dose: Not Given Amlodipine Besylate (Norvasc -) 5 mg PO DAILY [facility] Last Admin: 08/10/17 09:18 Dose: 5 mg Artificial Tears (Artificial Tears) 1 drop OU Q6H PRN PRN Reason: DRY EYES Ascorbic Acid (Vitamin C -) 500 mg PO DAILY [facility] Last Admin: 08/10/17 09:18 Dose: 500 mg Aspirin (Asa -) 81 mg PO DAILY [facility] Last Admin: 08/10/17 09:17 Dose: 81 mg Atorvastatin Calcium (Lipitor -) 40 mg PO HS [facility] Last Admin: 08/09/17 21:37 Dose: 40 mg Azithromycin (Zithromax -) 250 mg PO DAILY [facility] Bacitracin (Bacitracin -) 1 applic TP DAILY PRN PRN Reason: skin Gabapentin (Neurontin -) 300 mg PO TID [facility] Last Admin: 08/10/17 06:15 Dose: 300 mg Guaifenesin (Diabetic Tussin Dm -) 10 ml PO Q4H PRN PRN Reason: COUGH Last Admin: 08/10/17 09:21 Dose: 10 ml CEFTRIAXONE 1 G/50 ML PREMIX (Ceftriaxone 1 Gm-D5w Bag) 50 mls @ 100 mls/hr IVPB DAILY [facility] Last Admin: 08/10/17 09:17 Dose: 100 mls/hr Insulin Aspart (Novolog Vial Sliding Scale -) 1 vial SQ ACHS [facility] PRN Reason: Protocol Last Admin: 08/10/17 12:27 Dose: 10 unit Insulin Detemir (Levemir Vial) 35 units SQ HS [facility] Last Admin: 08/09/17 21:34 Dose: 35 unit Insulin Detemir (Levemir Vial) 15 units SQ AM [facility] Last Admin: 08/10/17 06:16 Dose: 15 unit Isosorbide Mononitrate (Imdur -) 30 mg PO DAILY [facility] Last Admin: 08/10/17 09:18 Dose: 30 mg Lactic Acid (Lac-Hydrin 12) 1 applic TP DAILY [facility] Last Admin: 08/10/17 09:19 Dose: 1 applic Methylprednisolone Sodium Succinate (Solu-Medrol -) 40 mg IVPUSH BID [facility] Last Admin: 08/10/17 09:17 Dose: 40 mg Pantoprazole Sodium (Protonix -) 40 mg PO BID [facility] Last Admin: 08/10/17 09:18 Dose: 40 mg Polyethylene Glycol (Miralax (For Daily Use) -) 17 gm PO DAILY [facility] Last Admin: 08/10/17 09:27 Dose: Not Given Ramipril (Altace -) 10 mg PO DAILY [facility] Last Admin: 08/10/17 09:18 Dose: 10 mg Sitagliptin Phosphate (Januvia -) 25 mg PO DAILY@0700 [facility] Last Admin: 08/10/17 06:18 Dose: 25 mg Tamsulosin HCl (Flomax -) 0.4 mg PO DAILY@0830 [facility] Last Admin: 08/10/17 08:18 Dose: 0.4 mg Ticagrelor (Brilinta) 60 mg PO BID [facility] Last Admin: 08/10/17 09:18 Dose: 60 mg - Objective Vital Signs: Vital Signs Temperature 97.3 F L 08/10/17 10:00 Pulse Rate 64 08/10/17 10:00 Respiratory Rate 22 08/10/17 10:00 Blood Pressure 121/51 08/10/17 10:00 O2 Sat by Pulse Oximetry (%) 96 08/10/17 09:00 Neck: Yes: WNL, Supple Cardiovascular: Yes: Regular Rate and Rhythm, S1, S2 Respiratory: Yes: WNL, Regular, CTA Bilaterally Gastrointestinal: Yes: WNL, Normal Bowel Sounds, Soft. No: Tenderness Labs: CBC, BMP 08/09/17 06:00 08/10/17 06:00 INR, PTT INR 1.10 (0.82-1.09) 08/07/17 14:47 Assessment/Plan Microbiology 08/08/17 13:00 Urine For Antigen Detection Legionella Antigen - Final 08/08/17 13:00 Urine For Antigen Detection Streptococcus pneumoniae Antigen (M - Final 08/08/17 13:00 Nasopharyngeal Swab Influenza Types A,B Antigen (NICK) - Final 08/08/17 13:00 Nasopharyngeal Swab - Final 08/07/17 14:47 Urine - Urine - Catheterized Urine Culture - Final Escherichia Coli 08/07/17 14:47 Blood - Peripheral Venous Blood Culture - Preliminary NO GROWTH OBTAINED AFTER 48 HOURS, INCUBATION TO CONTINUE FOR 3 DAYS. 08/07/17 14:47 Blood - Peripheral Venous Blood Culture - Preliminary NO GROWTH OBTAINED AFTER 48 HOURS, INCUBATION TO CONTINUE FOR 3 DAYS. Laboratory Tests 08/07/17 08/09/17 08/10/17 14:47 06:00 06:00 WBC 4.3 RBC 3.63 Hct 32.7 Plt Count 153 BUN 41 H Ur Leukocyte Esterase 3+ H Urine WBC (Auto) 26 Urine RBC (Auto) 2 Assessment Pneumonia E Coli UTI Plan Consider switch to oral agent tomorrow Vantin 200 mg bid for 5 days Fidelia CAMPA
--- NOTE | 2017-08-10 14:07 | PN ---
Physical Exam: SUBJECTIVE: Patient seen and examined. No acute events overnight. Pt reports that her SOB and cough have improved compared to yesterday. She states that her wheezing has gotten louder though. OBJECTIVE: Vital Signs Period Temp Pulse Resp BP Sys/Emerson Pulse Ox Last 24 Hr 97.2 F-97.9 F 54-80 16-22 115-133/51-70 96-96 GENERAL: The patient is awake, alert, and fully oriented, in no acute distress. HEENT: NC, AT NECK: Trachea midline, full range of motion, supple. LUNGS: bibasilar rales, diffuse rhonchi HEART: Regular rate and rhythm, S1, S2 without murmur, rub or gallop. ABDOMEN: Soft, nontender, nondistended, normoactive bowel sounds, no guarding, no rebound, no hepatosplenomegaly, no masses. EXTREMITIES: 2+ pulses, warm, well-perfused, no edema. NEUROLOGICAL: Cranial nerves II through XII grossly intact. Normal speech, gait not observed. Laboratory Results - last 24 hr 08/09/17 08/09/17 08/10/17 17:09 21:24 06:00 Sodium Potassium Chloride Carbon Dioxide Anion Gap BUN Creatinine Creat Clearance w eGFR POC Glucometer 281 297 Random Glucose Hemoglobin A1c % 8.6 H D Calcium Total Bilirubin AST ALT Alkaline Phosphatase Total Protein Albumin 08/10/17 08/10/17 08/10/17 06:00 06:06 12:23 Sodium 140 Potassium 4.6 Chloride 105 Carbon Dioxide 22 Anion Gap 13 BUN 41 H Creatinine 1.3 H Creat Clearance w eGFR 39.02 POC Glucometer 350 391 Random Glucose 315 H* D Hemoglobin A1c % Calcium 8.9 Total Bilirubin 0.2 D AST 10 L D ALT 24 Alkaline Phosphatase 135 H Total Protein 6.4 Albumin 3.3 L Active Medications Generic Name Dose Route Start Last Admin Trade Name Freq PRN Reason Stop Dose Admin Acetaminophen 650 mg 08/07/17 19:50 08/09/17 03:40 Tylenol - PO 650 mg BID PRN Administration PAIN Albuterol Sulfate 1 amp 08/09/17 11:36 Ventolin 0.083% Nebulizer Soln - NEB Q4H PRN SHORT OF BREATH/WHEEZING Albuterol/Ipratropium 1 amp 08/09/17 11:45 08/10/17 12:01 Duoneb - NEB Not Given TIDR [facility] Amlodipine Besylate 5 mg 08/08/17 10:00 08/10/17 09:18 Norvasc - PO 5 mg DAILY [facility] Administration Artificial Tears 1 drop 08/07/17 19:50 Artificial Tears OU Q6H PRN DRY EYES Ascorbic Acid 500 mg 08/08/17 10:00 08/10/17 09:18 Vitamin C - PO 500 mg DAILY [facility] Administration Aspirin 81 mg 08/08/17 10:00 08/10/17 09:17 Asa - PO 81 mg DAILY [facility] Administration Atorvastatin Calcium 40 mg 08/07/17 22:00 08/09/17 21:37 Lipitor - PO 40 mg HS [facility] Administration Azithromycin 250 mg 08/11/17 10:00 Zithromax - PO DAILY [facility] Bacitracin 1 applic 08/07/17 19:50 Bacitracin - TP DAILY PRN skin Gabapentin 300 mg 08/07/17 22:00 08/10/17 13:45 Neurontin - PO 300 mg TID [facility] Administration Guaifenesin 10 ml 08/09/17 09:50 08/10/17 09:21 Diabetic Tussin Dm - PO 10 ml Q4H PRN Administration COUGH CEFTRIAXONE 1 G/50 ML PREMIX 50 mls @ 100 mls/hr 08/08/17 10:00 08/10/17 09: 17 Ceftriaxone 1 Gm-D5w Bag IVPB 100 mls/hr DAILY [facility] Administration Insulin Aspart 1 vial 08/07/17 22:00 08/10/17 12:27 Novolog Vial Sliding Scale - SQ 10 unit ACHS [facility] Administration Protocol Insulin Detemir 35 units 08/07/17 22:00 08/09/17 21:34 Levemir Vial SQ 35 unit HS [facility] Administration Insulin Detemir 15 units 08/09/17 07:00 08/10/17 06:16 Levemir Vial SQ 15 unit AM [facility] Administration Isosorbide Mononitrate 30 mg 08/08/17 10:00 08/10/17 09:18 Imdur - PO 30 mg DAILY [facility] Administration Lactic Acid 1 applic 08/08/17 10:00 08/10/17 09:19 Lac-Hydrin 12 TP 1 applic DAILY [facility] Administration Methylprednisolone Sodium Succinate 40 mg 08/09/17 10:30 08/10/17 09:17 Solu-Medrol - IVPUSH 40 mg BID [facility] Administration Pantoprazole Sodium 40 mg 08/07/17 22:00 08/10/17 09:18 Protonix - PO 40 mg BID [facility] Administration Polyethylene Glycol 17 gm 08/08/17 10:00 08/10/17 09:27 Miralax (For Daily Use) - PO Not Given DAILY [facility] Ramipril 10 mg 08/08/17 10:00 08/10/17 09:18 Altace - PO 10 mg DAILY [facility] Administration Sitagliptin Phosphate 25 mg 08/08/17 07:00 08/10/17 06:18 Januvia - PO 25 mg DAILY@0700 [facility] Administration Tamsulosin HCl 0.4 mg 08/09/17 08:30 08/10/17 08:18 Flomax - PO 0.4 mg DAILY@0830 [facility] Administration Ticagrelor 60 mg 08/07/17 22:00 08/10/17 09:18 Brilinta PO 60 mg BID [facility] Administration ASSESSMENT/PLAN: 82F admitted for CAP. #CAP- improving -abx per ID -BD, standing and PRN -solumedrol -O2 via NC PRN -guaifenesin -f/u cx -monitor temps, wbc counts Rest of care per medical team. Plan to be discussed with attending, Dr. Baig. -Yuri James MD PGY1 Pulmonology Team Visit type - Emergency Visit Emergency Visit: Yes ED Registration Date: 08/07/17 Care time: The patient presented to the Emergency Department on the above date and was hospitalized for further evaluation of their emergent condition. - New Patient This patient is new to me today: Yes Date on this admission: 08/10/17 - Critical Care Critical Care patient: No
--- NOTE | 2017-08-10 15:22 | PN ---
Teaching Attending Note Name of Resident: Yuri James ATTENDING PHYSICIAN STATEMENT I saw and evaluated the patient. I reviewed the resident's note and discussed the case with the resident. I agree with the resident's findings and plan as documented. SUBJECTIVE:SOB/COUGH/WHEEZE OBJECTIVE:BIBASILAR RALES/RHONCHI LIKELY CABP ANTIBIOTICS DUONEB TID SOLUMEDROL Q 12 O2 R BAYLEE CAMPA
--- NOTE | 2017-08-10 15:33 | PN ---
Progress Note, Physician History of Present Illness: Pt seen and examined at bedside. She is awake and alert. Cavanaugh was removed however she was not able to void and has over 600 cc of urine in her bladder. - Current Medication List Current Medications: Active Medications Acetaminophen (Tylenol -) 650 mg PO BID PRN PRN Reason: PAIN Last Admin: 08/09/17 03:40 Dose: 650 mg Albuterol Sulfate (Ventolin 0.083% Nebulizer Soln -) 1 amp NEB Q4H PRN PRN Reason: SHORT OF BREATH/WHEEZING Albuterol/Ipratropium (Duoneb -) 1 amp NEB TIDR [facility] Last Admin: 08/10/17 13:45 Dose: 1 amp Amlodipine Besylate (Norvasc -) 5 mg PO DAILY [facility] Last Admin: 08/10/17 09:18 Dose: 5 mg Artificial Tears (Artificial Tears) 1 drop OU Q6H PRN PRN Reason: DRY EYES Ascorbic Acid (Vitamin C -) 500 mg PO DAILY [facility] Last Admin: 08/10/17 09:18 Dose: 500 mg Aspirin (Asa -) 81 mg PO DAILY [facility] Last Admin: 08/10/17 09:17 Dose: 81 mg Atorvastatin Calcium (Lipitor -) 40 mg PO HS [facility] Last Admin: 08/09/17 21:37 Dose: 40 mg Azithromycin (Zithromax -) 250 mg PO DAILY [facility] Bacitracin (Bacitracin -) 1 applic TP DAILY PRN PRN Reason: skin Gabapentin (Neurontin -) 300 mg PO TID [facility] Last Admin: 08/10/17 13:45 Dose: 300 mg Guaifenesin (Diabetic Tussin Dm -) 10 ml PO Q4H PRN PRN Reason: COUGH Last Admin: 08/10/17 09:21 Dose: 10 ml CEFTRIAXONE 1 G/50 ML PREMIX (Ceftriaxone 1 Gm-D5w Bag) 50 mls @ 100 mls/hr IVPB DAILY [facility] Last Admin: 08/10/17 09:17 Dose: 100 mls/hr Insulin Aspart (Novolog Vial Sliding Scale -) 1 vial SQ ACHS [facility] PRN Reason: Protocol Last Admin: 08/10/17 12:27 Dose: 10 unit Insulin Detemir (Levemir Vial) 35 units SQ HS [facility] Last Admin: 08/09/17 21:34 Dose: 35 unit Insulin Detemir (Levemir Vial) 15 units SQ AM [facility] Last Admin: 08/10/17 06:16 Dose: 15 unit Isosorbide Mononitrate (Imdur -) 30 mg PO DAILY [facility] Last Admin: 08/10/17 09:18 Dose: 30 mg Lactic Acid (Lac-Hydrin 12) 1 applic TP DAILY [facility] Last Admin: 08/10/17 09:19 Dose: 1 applic Methylprednisolone Sodium Succinate (Solu-Medrol -) 40 mg IVPUSH BID [facility] Last Admin: 08/10/17 09:17 Dose: 40 mg Pantoprazole Sodium (Protonix -) 40 mg PO BID [facility] Last Admin: 08/10/17 09:18 Dose: 40 mg Polyethylene Glycol (Miralax (For Daily Use) -) 17 gm PO DAILY [facility] Last Admin: 08/10/17 09:27 Dose: Not Given Ramipril (Altace -) 10 mg PO DAILY [facility] Last Admin: 08/10/17 09:18 Dose: 10 mg Sitagliptin Phosphate (Januvia -) 25 mg PO DAILY@0700 [facility] Last Admin: 08/10/17 06:18 Dose: 25 mg Tamsulosin HCl (Flomax -) 0.4 mg PO DAILY@0830 [facility] Last Admin: 08/10/17 08:18 Dose: 0.4 mg Ticagrelor (Brilinta) 60 mg PO BID [facility] Last Admin: 08/10/17 09:18 Dose: 60 mg - Objective Vital Signs: Vital Signs Temperature 97.3 F L 08/10/17 10:00 Pulse Rate 64 08/10/17 10:00 Respiratory Rate 22 08/10/17 10:00 Blood Pressure 121/51 08/10/17 10:00 O2 Sat by Pulse Oximetry (%) 96 08/10/17 09:00 Constitutional: Yes: Calm Eyes: Yes: Conjunctiva Clear HENT: Yes: Atraumatic Cardiovascular: Yes: S1, S2 Respiratory: Yes: On Nasal O2 Gastrointestinal: Yes: Soft Genitourinary: Yes: WNL Edema: Yes Edema: LLE: 2+, RLE: 2+ Neurological: Yes: Oriented Psychiatric: Yes: Oriented Labs: CBC, BMP 08/09/17 06:00 08/10/17 06:00 INR, PTT INR 1.10 (0.82-1.09) 08/07/17 14:47 Problem List - Problems (1) CKD (chronic kidney disease) Code(s): N18.9 - CHRONIC KIDNEY DISEASE, UNSPECIFIED (2) CAROLYN (acute kidney injury) Code(s): N17.9 - ACUTE KIDNEY FAILURE, UNSPECIFIED (3) Dyspnea Code(s): R06.00 - DYSPNEA, UNSPECIFIED (4) Pneumonia Code(s): J18.9 - PNEUMONIA, UNSPECIFIED ORGANISM (5) Type 2 diabetes mellitus with diabetic chronic kidney disease Code(s): E11.22 - TYPE 2 DIABETES MELLITUS W DIABETIC CHRONIC KIDNEY DISEASE (6) CHF (congestive heart failure) Code(s): I50.9 - HEART FAILURE, UNSPECIFIED Qualifiers: Congestive heart failure type: diastolic Congestive heart failure chronicity: chronic Qualified Code(s): I50.32 - Chronic diastolic (congestive ) heart failure Assessment/Plan Current Medications Generic Name Dose Route Start Last Admin Trade Name Freq PRN Reason Stop Dose Admin Acetaminophen 650 mg 08/07/17 19:50 08/09/17 03:40 Tylenol - PO 650 mg BID PRN Administration PAIN Albuterol Sulfate 1 amp 08/09/17 11:36 Ventolin 0.083% Nebulizer Soln - NEB Q4H PRN SHORT OF BREATH/WHEEZING Albuterol/Ipratropium 1 amp 08/09/17 11:45 08/10/17 13:45 Duoneb - NEB 1 amp TIDR [facility] Administration Amlodipine Besylate 5 mg 08/08/17 10:00 08/10/17 09:18 Norvasc - PO 5 mg DAILY [facility] Administration Artificial Tears 1 drop 08/07/17 19:50 Artificial Tears OU Q6H PRN DRY EYES Ascorbic Acid 500 mg 08/08/17 10:00 08/10/17 09:18 Vitamin C - PO 500 mg DAILY [facility] Administration Aspirin 81 mg 08/08/17 10:00 08/10/17 09:17 Asa - PO 81 mg DAILY [facility] Administration Atorvastatin Calcium 40 mg 08/07/17 22:00 08/09/17 21:37 Lipitor - PO 40 mg HS [facility] Administration Azithromycin 250 mg 08/11/17 10:00 Zithromax - PO DAILY [facility] Bacitracin 1 applic 08/07/17 19:50 Bacitracin - TP DAILY PRN skin Gabapentin 300 mg 08/07/17 22:00 08/10/17 13:45 Neurontin - PO 300 mg TID [facility] Administration Guaifenesin 10 ml 08/09/17 09:50 08/10/17 09:21 Diabetic Tussin Dm - PO 10 ml Q4H PRN Administration COUGH CEFTRIAXONE 1 G/50 ML PREMIX 50 mls @ 100 mls/hr 08/08/17 10:00 08/10/17 09: 17 Ceftriaxone 1 Gm-D5w Bag IVPB 100 mls/hr DAILY [facility] Administration Insulin Aspart 1 vial 08/07/17 22:00 08/10/17 12:27 Novolog Vial Sliding Scale - SQ 10 unit ACHS [facility] Administration Protocol Insulin Detemir 35 units 08/07/17 22:00 08/09/17 21:34 Levemir Vial SQ 35 unit HS [facility] Administration Insulin Detemir 15 units 08/09/17 07:00 08/10/17 06:16 Levemir Vial SQ 15 unit AM [facility] Administration Isosorbide Mononitrate 30 mg 08/08/17 10:00 08/10/17 09:18 Imdur - PO 30 mg DAILY [facility] Administration Lactic Acid 1 applic 08/08/17 10:00 08/10/17 09:19 Lac-Hydrin 12 TP 1 applic DAILY [facility] Administration Methylprednisolone Sodium Succinate 40 mg 08/09/17 10:30 08/10/17 09:17 Solu-Medrol - IVPUSH 40 mg BID [facility] Administration Pantoprazole Sodium 40 mg 08/07/17 22:00 08/10/17 09:18 Protonix - PO 40 mg BID [facility] Administration Polyethylene Glycol 17 gm 08/08/17 10:00 08/10/17 09:27 Miralax (For Daily Use) - PO Not Given DAILY [facility] Ramipril 10 mg 08/08/17 10:00 08/10/17 09:18 Altace - PO 10 mg DAILY [facility] Administration Sitagliptin Phosphate 25 mg 08/08/17 07:00 08/10/17 06:18 Januvia - PO 25 mg DAILY@0700 [facility] Administration Tamsulosin HCl 0.4 mg 08/09/17 08:30 08/10/17 08:18 Flomax - PO 0.4 mg DAILY@0830 [facility] Administration Ticagrelor 60 mg 08/07/17 22:00 08/10/17 09:18 Brilinta PO 60 mg BID [facility] Administration Impression 1. CAROLYN 2. UTI 3. CAD 4. HTN 5. DM 6. CHF 7. hyperlipidemia 8. renal cyst 9. CKD Plan - re-insert cavanaugh as she did not pass voiding trial - give dose of lasix - repeat labs in am - discussed with nurse - pt was on lasis 40 mg po twice a day as outpt - will follow Dr Hua
[2017-08-10] MEDS: FUROSEMIDE 40 MG TABLET (FP) PO SCH (17:07)
[2017-08-10] MEDS: ATORVASTATIN CA 40 MG TABLET (FP) PO SCH (22:02)
[2017-08-11] MEDS: GABAPENTIN 300 MG CAPSULE (FP) PO SCH ×3 (06:01→21:48)
[2017-08-11] MEDS: sitaGLIPtin PHOSPHATE 25 MG TABLET (FP) PO SCH (06:03)
[2017-08-11] MEDS: INSULIN DETEMIR 100 UNITS/ML MDV SQ SCH ×2 (06:04→21:47)
[2017-08-11] MEDS: INSULIN SLIDING SCALE (NOVOLOG) 1 VIAL SQ SCH ×4 (06:05→21:50)
[2017-08-11] MEDS: ALBUTEROL SO4 2.5/IPRATROPIUM 0.5 INH SOL 3 ML VIAL.NEB. NEB SCH ×3 (07:04→21:30)
[2017-08-11 09:11] LABS: CREATININE 1.3 mg/dL (0.55-1.02); GLUCOSE,RANDOM 293 mg/dL (74-106)
[2017-08-11 09:12] LABS: ANION GAP 10 (8-16); CALCIUM 8.8 mg/dL (8.5-10.1); CO2 24 mmol/L (21-32)
[2017-08-11] MEDS ORDERED: PT OWN MED DRAWER 7, Y5N ONE (09:47)
[2017-08-11] MEDS: CEFTRIAXONE 1 G/50 ML PREMIX 50 ML IVPB SCH (10:05)
[2017-08-11] MEDS: methylPREDNISolone NA SUCC 40 MG/1 ML VIAL IVPUSH SCH (10:06)
[2017-08-11] MEDS: RAMIPRIL 5 MG CAPSULE (FP) PO SCH (10:07)
[2017-08-11] MEDS: ASCORBIC ACID 500 MG TABLET (FP) PO SCH (10:07)
[2017-08-11] MEDS: PANTOPRAZOLE 40 MG TABLET (FP) PO SCH ×2 (10:08→21:48)
[2017-08-11] MEDS: ASPIRIN 81 MG CHEWABLE TABLETS PO SCH (10:08)
[2017-08-11] MEDS: AZITHROMYCIN 250 MG TABLET PO SCH (10:08)
[2017-08-11] MEDS: FUROSEMIDE 40 MG TABLET (FP) PO SCH (10:08)
[2017-08-11] MEDS: amLODIPine BESYLATE 5 MG TABLET (FP) PO SCH (10:08)
[2017-08-11] MEDS: TICAGRELOR 60 MG TABLET PO SCH ×2 (10:09→21:46)
[2017-08-11] MEDS: TAMSULOSIN HCL 0.4 MG CAP.ER.24H (FP) PO SCH (10:09)
[2017-08-11] MEDS: ISOSORBIDE MONONITRATE 30 MG TAB.SR.24H (FP) PO SCH (10:10)
[2017-08-11] MEDS: ARTIFICIAL TEARS (POLYVINYL ALCOHOL 1.4%) OPTH DROPS OU PRN (10:10)
[2017-08-11] MEDS: POLYETHYLENE GLYCOL 3350 119 GM BTL PO SCH (10:12)
[2017-08-11] MEDS: AMMONIUM LACTATE 12% LOTION 225 GM BOTTLE TP SCH (10:12)
[2017-08-11] MEDS: guaiFENesin/D-M SUGAR-FREE/ACLHOL-FREE 118 ML BOTTLE PO PRN ×2 (10:33→15:57)
--- NOTE | 2017-08-11 12:26 | PN ---
Progress Note (short form) - Note Progress Note: PULMONARY AWAKE/ALERT SPEAKING ON PHONE VSS/AFEBRILE ANICTERIC SCATTERED CRACKLES S1S2 BS+ NO EDEMA LABS/MEDS/NOTES/IMAGES REVIEWED A/P Pneumonia UTI CAD LV Diastolic Dysfunction Acute on Chronic Renal Failure HTN DM - continue antibiotics - inhaled bronchodilators - changed steroids to oral - O2 to keep Spo2 >90% - IVF - monitor urine output, creatinine - DVT prophylaxis Mari BEACH MD
--- NOTE | 2017-08-11 14:06 | PN ---
Progress Note, Physician History of Present Illness: in bed no complaints - Current Medication List Current Medications: Active Medications Acetaminophen (Tylenol -) 650 mg PO BID PRN PRN Reason: PAIN Last Admin: 08/09/17 03:40 Dose: 650 mg Albuterol Sulfate (Ventolin 0.083% Nebulizer Soln -) 1 amp NEB Q4H PRN PRN Reason: SHORT OF BREATH/WHEEZING Albuterol/Ipratropium (Duoneb -) 1 amp NEB TIDR [facility] Last Admin: 08/11/17 07:04 Dose: 1 amp Amlodipine Besylate (Norvasc -) 5 mg PO DAILY [facility] Last Admin: 08/11/17 10:08 Dose: 5 mg Artificial Tears (Artificial Tears) 1 drop OU Q6H PRN PRN Reason: DRY EYES Last Admin: 08/11/17 10:10 Dose: 1 drop Ascorbic Acid (Vitamin C -) 500 mg PO DAILY [facility] Last Admin: 08/11/17 10:07 Dose: 500 mg Aspirin (Asa -) 81 mg PO DAILY [facility] Last Admin: 08/11/17 10:08 Dose: 81 mg Atorvastatin Calcium (Lipitor -) 40 mg PO HS [facility] Last Admin: 08/10/17 22:02 Dose: 40 mg Azithromycin (Zithromax -) 250 mg PO DAILY [facility] Last Admin: 08/11/17 10:08 Dose: 250 mg Bacitracin (Bacitracin -) 1 applic TP DAILY PRN PRN Reason: skin Furosemide (Lasix -) 40 mg PO DAILY [facility] Last Admin: 08/11/17 10:08 Dose: 40 mg Gabapentin (Neurontin -) 300 mg PO TID [facility] Last Admin: 08/11/17 13:29 Dose: 300 mg Guaifenesin (Diabetic Tussin Dm -) 10 ml PO Q4H PRN PRN Reason: COUGH Last Admin: 08/11/17 10:33 Dose: 10 ml CEFTRIAXONE 1 G/50 ML PREMIX (Ceftriaxone 1 Gm-D5w Bag) 50 mls @ 100 mls/hr IVPB DAILY [facility] Last Admin: 08/11/17 10:05 Dose: 100 mls/hr Insulin Aspart (Novolog Vial Sliding Scale -) 1 vial SQ ACHS [facility] PRN Reason: Protocol Last Admin: 08/11/17 12:53 Dose: 5 unit Insulin Detemir (Levemir Vial) 35 units SQ HS [facility] Last Admin: 08/10/17 22:07 Dose: 35 unit Insulin Detemir (Levemir Vial) 15 units SQ AM [facility] Last Admin: 08/11/17 06:04 Dose: 15 unit Isosorbide Mononitrate (Imdur -) 30 mg PO DAILY [facility] Last Admin: 08/11/17 10:10 Dose: 30 mg Lactic Acid (Lac-Hydrin 12) 1 applic TP DAILY [facility] Last Admin: 08/11/17 10:12 Dose: 1 applic Pantoprazole Sodium (Protonix -) 40 mg PO BID [facility] Last Admin: 08/11/17 10:08 Dose: 40 mg Polyethylene Glycol (Miralax (For Daily Use) -) 17 gm PO DAILY [facility] Last Admin: 08/11/17 10:12 Dose: Not Given Prednisone (Deltasone -) 20 mg PO DAILY [facility] Ramipril (Altace -) 10 mg PO DAILY [facility] Last Admin: 08/11/17 10:07 Dose: 10 mg Sitagliptin Phosphate (Januvia -) 25 mg PO DAILY@0700 [facility] Last Admin: 08/11/17 06:03 Dose: 25 mg Tamsulosin HCl (Flomax -) 0.4 mg PO DAILY@0830 [facility] Last Admin: 08/11/17 10:09 Dose: 0.4 mg Ticagrelor (Brilinta) 60 mg PO BID [facility] Last Admin: 08/11/17 10:09 Dose: 60 mg - Objective Vital Signs: Vital Signs Temperature 98.6 F 08/11/17 08:38 Pulse Rate 61 08/11/17 08:38 Respiratory Rate 18 08/11/17 08:38 Blood Pressure 135/52 08/11/17 08:38 O2 Sat by Pulse Oximetry (%) 96 08/11/17 09:00 Cardiovascular: Yes: S1, S2 Respiratory: Yes: Diminished, On Nasal O2 Gastrointestinal: Yes: Normal Bowel Sounds, Soft Labs: CBC, BMP 08/09/17 06:00 08/11/17 06:00 INR, PTT INR 1.10 (0.82-1.09) 08/07/17 14:47 Assessment/Plan - Problems (1) CAROLYN (acute kidney injury) Code(s): N17.9 - ACUTE KIDNEY FAILURE, UNSPECIFIED (2) Dyspnea Assessment/Plan: -neb tx standing and PRN -nasal O2 -IV steroids -IV abx Code(s): R06.00 - DYSPNEA, UNSPECIFIED (3) Type 2 diabetes mellitus with diabetic chronic kidney disease Assessment/Plan: -Insulin long and short acting -Januvia -endocrinology consult appreciated Code(s): E11.22 - TYPE 2 DIABETES MELLITUS W DIABETIC CHRONIC KIDNEY DISEASE (4) Abdominal pain Code(s): R10.9 - UNSPECIFIED ABDOMINAL PAIN Qualifiers: Abdominal location: generalized Qualified Code(s): R10.84 - Generalized abdominal pain (5) UTI (urinary tract infection) Assessment/Plan: -ID on board -IV abx d/c cavanaugh catheter, voiding trial -bladder scan in 12 hours Code(s): N39.0 - URINARY TRACT INFECTION, SITE NOT SPECIFIED Qualifiers: Urinary tract infection type: acute cystitis Hematuria presence: without hematuria Qualified Code(s): N30.00 - Acute cystitis without hematuria
[2017-08-11] MEDS: predniSONE 20 MG TABLET (UD) PO SCH (15:45)
--- NOTE | 2017-08-11 16:06 | PN ---
Progress Note, Physician History of Present Illness: Pt seen and examined at bedside. She is awake and alert. SHe has the cavanaugh as she failed the voiding trial. - Current Medication List Current Medications: Active Medications Acetaminophen (Tylenol -) 650 mg PO BID PRN PRN Reason: PAIN Last Admin: 08/09/17 03:40 Dose: 650 mg Albuterol Sulfate (Ventolin 0.083% Nebulizer Soln -) 1 amp NEB Q4H PRN PRN Reason: SHORT OF BREATH/WHEEZING Albuterol/Ipratropium (Duoneb -) 1 amp NEB TIDR JOSE ELIAS Last Admin: 08/11/17 14:23 Dose: 1 amp Amlodipine Besylate (Norvasc -) 5 mg PO DAILY JOSE ELIAS Last Admin: 08/11/17 10:08 Dose: 5 mg Artificial Tears (Artificial Tears) 1 drop OU Q6H PRN PRN Reason: DRY EYES Last Admin: 08/11/17 10:10 Dose: 1 drop Ascorbic Acid (Vitamin C -) 500 mg PO DAILY [facility] Last Admin: 08/11/17 10:07 Dose: 500 mg Aspirin (Asa -) 81 mg PO DAILY JOSE ELIAS Last Admin: 08/11/17 10:08 Dose: 81 mg Atorvastatin Calcium (Lipitor -) 40 mg PO HS [facility] Last Admin: 08/10/17 22:02 Dose: 40 mg Azithromycin (Zithromax -) 250 mg PO DAILY JOSE ELIAS Last Admin: 08/11/17 10:08 Dose: 250 mg Bacitracin (Bacitracin -) 1 applic TP DAILY PRN PRN Reason: skin Furosemide (Lasix -) 40 mg PO DAILY [facility] Last Admin: 08/11/17 10:08 Dose: 40 mg Gabapentin (Neurontin -) 300 mg PO TID JOSE ELIAS Last Admin: 08/11/17 13:29 Dose: 300 mg Guaifenesin (Diabetic Tussin Dm -) 10 ml PO Q4H PRN PRN Reason: COUGH Last Admin: 08/11/17 15:57 Dose: 10 ml CEFTRIAXONE 1 G/50 ML PREMIX (Ceftriaxone 1 Gm-D5w Bag) 50 mls @ 100 mls/hr IVPB DAILY JOSE ELIAS Last Admin: 08/11/17 10:05 Dose: 100 mls/hr Insulin Aspart (Novolog Vial Sliding Scale -) 1 vial SQ ACHS JOSE ELIAS PRN Reason: Protocol Last Admin: 08/11/17 12:53 Dose: 5 unit Insulin Detemir (Levemir Vial) 35 units SQ HS [facility] Last Admin: 08/10/17 22:07 Dose: 35 unit Insulin Detemir (Levemir Vial) 15 units SQ AM [facility] Last Admin: 08/11/17 06:04 Dose: 15 unit Isosorbide Mononitrate (Imdur -) 30 mg PO DAILY [facility] Last Admin: 08/11/17 10:10 Dose: 30 mg Lactic Acid (Lac-Hydrin 12) 1 applic TP DAILY [facility] Last Admin: 08/11/17 10:12 Dose: 1 applic Pantoprazole Sodium (Protonix -) 40 mg PO BID [facility] Last Admin: 08/11/17 10:08 Dose: 40 mg Polyethylene Glycol (Miralax (For Daily Use) -) 17 gm PO DAILY [facility] Last Admin: 08/11/17 10:12 Dose: Not Given Prednisone (Deltasone -) 20 mg PO DAILY [facility] Last Admin: 08/11/17 15:45 Dose: Not Given Ramipril (Altace -) 10 mg PO DAILY [facility] Last Admin: 08/11/17 10:07 Dose: 10 mg Sitagliptin Phosphate (Januvia -) 25 mg PO DAILY@0700 [facility] Last Admin: 08/11/17 06:03 Dose: 25 mg Tamsulosin HCl (Flomax -) 0.4 mg PO DAILY@0830 [facility] Last Admin: 08/11/17 10:09 Dose: 0.4 mg Ticagrelor (Brilinta) 60 mg PO BID [facility] Last Admin: 08/11/17 10:09 Dose: 60 mg - Objective Vital Signs: Vital Signs Temperature 97.8 F 08/11/17 15:45 Pulse Rate 70 08/11/17 15:45 Respiratory Rate 18 08/11/17 15:45 Blood Pressure 134/54 08/11/17 15:45 O2 Sat by Pulse Oximetry (%) 96 08/11/17 09:00 Constitutional: Yes: Calm Eyes: Yes: Conjunctiva Clear HENT: Yes: Atraumatic Neck: Yes: Supple Cardiovascular: Yes: S1, S2 Respiratory: Yes: On Nasal O2 Gastrointestinal: Yes: Soft, Abdomen, Obese Genitourinary: Yes: Cavanaugh Present Musculoskeletal: Yes: WNL Edema: Yes Edema: LLE: 1+, RLE: 1+ Neurological: Yes: Oriented Psychiatric: Yes: Oriented Labs: CBC, BMP 08/09/17 06:00 08/11/17 06:00 INR, PTT INR 1.10 (0.82-1.09) 08/07/17 14:47 Problem List - Problems (1) CKD (chronic kidney disease) Code(s): N18.9 - CHRONIC KIDNEY DISEASE, UNSPECIFIED (2) CAROLYN (acute kidney injury) Code(s): N17.9 - ACUTE KIDNEY FAILURE, UNSPECIFIED (3) Dyspnea Code(s): R06.00 - DYSPNEA, UNSPECIFIED (4) Pneumonia Code(s): J18.9 - PNEUMONIA, UNSPECIFIED ORGANISM (5) Type 2 diabetes mellitus with diabetic chronic kidney disease Code(s): E11.22 - TYPE 2 DIABETES MELLITUS W DIABETIC CHRONIC KIDNEY DISEASE (6) CHF (congestive heart failure) Code(s): I50.9 - HEART FAILURE, UNSPECIFIED Qualifiers: Congestive heart failure type: diastolic Congestive heart failure chronicity: chronic Qualified Code(s): I50.32 - Chronic diastolic (congestive ) heart failure Assessment/Plan Current Medications Generic Name Dose Route Start Last Admin Trade Name Freq PRN Reason Stop Dose Admin Acetaminophen 650 mg 08/07/17 19:50 08/09/17 03:40 Tylenol - PO 650 mg BID PRN Administration PAIN Albuterol Sulfate 1 amp 08/09/17 11:36 Ventolin 0.083% Nebulizer Soln - NEB Q4H PRN SHORT OF BREATH/WHEEZING Albuterol/Ipratropium 1 amp 08/09/17 11:45 08/11/17 14:23 Duoneb - NEB 1 amp TIDR JOSE ELIAS Administration Amlodipine Besylate 5 mg 08/08/17 10:00 08/11/17 10:08 Norvasc - PO 5 mg DAILY JOSE ELIAS Administration Artificial Tears 1 drop 08/07/17 19:50 08/11/17 10:10 Artificial Tears OU 1 drop Q6H PRN Administration DRY EYES Ascorbic Acid 500 mg 08/08/17 10:00 08/11/17 10:07 Vitamin C - PO 500 mg DAILY JOSE ELIAS Administration Aspirin 81 mg 08/08/17 10:00 08/11/17 10:08 Asa - PO 81 mg DAILY JOSE ELIAS Administration Atorvastatin Calcium 40 mg 08/07/17 22:00 08/10/17 22:02 Lipitor - PO 40 mg HS JOSE ELIAS Administration Azithromycin 250 mg 08/11/17 10:00 08/11/17 10:08 Zithromax - PO 250 mg DAILY JOSE ELIAS Administration Bacitracin 1 applic 08/07/17 19:50 Bacitracin - TP DAILY PRN skin Furosemide 40 mg 08/10/17 15:45 08/11/17 10:08 Lasix - PO 40 mg DAILY JOSE ELIAS Administration Gabapentin 300 mg 08/07/17 22:00 08/11/17 13:29 Neurontin - PO 300 mg TID JOSE ELIAS Administration Guaifenesin 10 ml 08/09/17 09:50 08/11/17 15:57 Diabetic Tussin Dm - PO 10 ml Q4H PRN Administration COUGH CEFTRIAXONE 1 G/50 ML PREMIX 50 mls @ 100 mls/hr 08/08/17 10:00 08/11/17 10: 05 Ceftriaxone 1 Gm-D5w Bag IVPB 100 mls/hr DAILY JOSE ELIAS Administration Insulin Aspart 1 vial 08/07/17 22:00 08/11/17 12:53 Novolog Vial Sliding Scale - SQ 5 unit ACHS JOSE ELIAS Administration Protocol Insulin Detemir 35 units 08/07/17 22:00 08/10/17 22:07 Levemir Vial SQ 35 unit HS JOSE ELIAS Administration Insulin Detemir 15 units 08/09/17 07:00 08/11/17 06:04 Levemir Vial SQ 15 unit AM JOSE ELIAS Administration Isosorbide Mononitrate 30 mg 08/08/17 10:00 08/11/17 10:10 Imdur - PO 30 mg DAILY JOSE ELIAS Administration Lactic Acid 1 applic 08/08/17 10:00 08/11/17 10:12 Lac-Hydrin 12 TP 1 applic DAILY JOSE ELIAS Administration Pantoprazole Sodium 40 mg 08/07/17 22:00 08/11/17 10:08 Protonix - PO 40 mg BID JOSE ELIAS Administration Polyethylene Glycol 17 gm 08/08/17 10:00 08/11/17 10:12 Miralax (For Daily Use) - PO Not Given DAILY JOSE ELIAS Prednisone 20 mg 08/11/17 12:30 08/11/17 15:45 Deltasone - PO Not Given DAILY JOSE ELIAS Ramipril 10 mg 08/08/17 10:00 08/11/17 10:07 Altace - PO 10 mg DAILY JOSE ELIAS Administration Sitagliptin Phosphate 25 mg 08/08/17 07:00 08/11/17 06:03 Januvia - PO 25 mg DAILY@0700 JOSE ELIAS Administration Tamsulosin HCl 0.4 mg 08/09/17 08:30 08/11/17 10:09 Flomax - PO 0.4 mg DAILY@0830 JOSE ELIAS Administration Ticagrelor 60 mg 08/07/17 22:00 08/11/17 10:09 Brilinta PO 60 mg BID JOSE ELIAS Administration Impression 1. CAROLYN 2. UTI 3. CAD 4. HTN 5. DM 6. CHF 7. hyperlipidemia 8. renal cyst 9. CKD Plan - renal function is stable - cont with lasix at a daily dose, will increase to BID on discharge - repeat bmp in am - will need another voiding trial - pt was on lasis 40 mg po twice a day as outpt - will follow Dr Hua
--- NOTE | 2017-08-11 16:56 | PN ---
Progress Note, Physician History of Present Illness: Seated in bed + cough noted Not dyspneic at rest Afebrile WBC WNL Urine c/s E coli - Current Medication List Current Medications: Active Medications Acetaminophen (Tylenol -) 650 mg PO BID PRN PRN Reason: PAIN Last Admin: 08/09/17 03:40 Dose: 650 mg Albuterol Sulfate (Ventolin 0.083% Nebulizer Soln -) 1 amp NEB Q4H PRN PRN Reason: SHORT OF BREATH/WHEEZING Albuterol/Ipratropium (Duoneb -) 1 amp NEB TIDR JOSE ELIAS Last Admin: 08/11/17 14:23 Dose: 1 amp Amlodipine Besylate (Norvasc -) 5 mg PO DAILY [facility] Last Admin: 08/11/17 10:08 Dose: 5 mg Artificial Tears (Artificial Tears) 1 drop OU Q6H PRN PRN Reason: DRY EYES Last Admin: 08/11/17 10:10 Dose: 1 drop Ascorbic Acid (Vitamin C -) 500 mg PO DAILY [facility] Last Admin: 08/11/17 10:07 Dose: 500 mg Aspirin (Asa -) 81 mg PO DAILY [facility] Last Admin: 08/11/17 10:08 Dose: 81 mg Atorvastatin Calcium (Lipitor -) 40 mg PO HS [facility] Last Admin: 08/10/17 22:02 Dose: 40 mg Azithromycin (Zithromax -) 250 mg PO DAILY [facility] Last Admin: 08/11/17 10:08 Dose: 250 mg Bacitracin (Bacitracin -) 1 applic TP DAILY PRN PRN Reason: skin Furosemide (Lasix -) 40 mg PO DAILY [facility] Last Admin: 08/11/17 10:08 Dose: 40 mg Gabapentin (Neurontin -) 300 mg PO TID JOSE ELIAS Last Admin: 08/11/17 13:29 Dose: 300 mg Guaifenesin (Diabetic Tussin Dm -) 10 ml PO Q4H PRN PRN Reason: COUGH Last Admin: 08/11/17 15:57 Dose: 10 ml CEFTRIAXONE 1 G/50 ML PREMIX (Ceftriaxone 1 Gm-D5w Bag) 50 mls @ 100 mls/hr IVPB DAILY [facility] Last Admin: 08/11/17 10:05 Dose: 100 mls/hr Insulin Aspart (Novolog Vial Sliding Scale -) 1 vial SQ ACHS JOSE ELIAS PRN Reason: Protocol Last Admin: 08/11/17 12:53 Dose: 5 unit Insulin Detemir (Levemir Vial) 35 units SQ HS [facility] Last Admin: 08/10/17 22:07 Dose: 35 unit Insulin Detemir (Levemir Vial) 15 units SQ AM [facility] Last Admin: 08/11/17 06:04 Dose: 15 unit Isosorbide Mononitrate (Imdur -) 30 mg PO DAILY [facility] Last Admin: 08/11/17 10:10 Dose: 30 mg Lactic Acid (Lac-Hydrin 12) 1 applic TP DAILY [facility] Last Admin: 08/11/17 10:12 Dose: 1 applic Pantoprazole Sodium (Protonix -) 40 mg PO BID [facility] Last Admin: 08/11/17 10:08 Dose: 40 mg Polyethylene Glycol (Miralax (For Daily Use) -) 17 gm PO DAILY [facility] Last Admin: 08/11/17 10:12 Dose: Not Given Prednisone (Deltasone -) 20 mg PO DAILY [facility] Last Admin: 08/11/17 15:45 Dose: Not Given Ramipril (Altace -) 10 mg PO DAILY [facility] Last Admin: 08/11/17 10:07 Dose: 10 mg Sitagliptin Phosphate (Januvia -) 25 mg PO DAILY@0700 [facility] Last Admin: 08/11/17 06:03 Dose: 25 mg Tamsulosin HCl (Flomax -) 0.4 mg PO DAILY@0830 [facility] Last Admin: 08/11/17 10:09 Dose: 0.4 mg Ticagrelor (Brilinta) 60 mg PO BID [facility] Last Admin: 08/11/17 10:09 Dose: 60 mg - Objective Vital Signs: Vital Signs Temperature 97.8 F 08/11/17 15:45 Pulse Rate 70 08/11/17 15:45 Respiratory Rate 18 08/11/17 15:45 Blood Pressure 134/54 08/11/17 15:45 O2 Sat by Pulse Oximetry (%) 96 08/11/17 09:00 Constitutional: Yes: No Distress Cardiovascular: Yes: Regular Rate and Rhythm, S1, S2 Respiratory: Yes: Rhonchi Gastrointestinal: Yes: Normal Bowel Sounds, Soft Edema: Yes Labs: CBC, BMP 08/09/17 06:00 08/11/17 06:00 INR, PTT INR 1.10 (0.82-1.09) 08/07/17 14:47 Assessment/Plan Pneumonia UTI Continue zithrmax/ ceftriaxone po antibiotics next 24h
[2017-08-11] MEDS: ATORVASTATIN CA 40 MG TABLET (FP) PO SCH (21:50)
[2017-08-12] MEDS: GABAPENTIN 300 MG CAPSULE (FP) PO SCH ×3 (06:24→23:18)
[2017-08-12] MEDS: sitaGLIPtin PHOSPHATE 25 MG TABLET (FP) PO SCH (06:24)
[2017-08-12] MEDS: INSULIN SLIDING SCALE (NOVOLOG) 1 VIAL SQ SCH ×4 (06:24→22:59)
[2017-08-12] MEDS: INSULIN DETEMIR 100 UNITS/ML MDV SQ SCH ×2 (06:25→22:59)
[2017-08-12] MEDS: ALBUTEROL SO4 2.5/IPRATROPIUM 0.5 INH SOL 3 ML VIAL.NEB. NEB SCH ×3 (06:32→22:12)
[2017-08-12] MEDS: guaiFENesin/D-M SUGAR-FREE/ACLHOL-FREE 118 ML BOTTLE PO PRN ×2 (09:40→14:00)
[2017-08-12] MEDS: TICAGRELOR 60 MG TABLET PO SCH ×2 (09:41→23:17)
[2017-08-12] MEDS: AMMONIUM LACTATE 12% LOTION 225 GM BOTTLE TP SCH (09:42)
[2017-08-12] MEDS: CEFTRIAXONE 1 G/50 ML PREMIX 50 ML IVPB SCH (09:42)
[2017-08-12] MEDS: predniSONE 20 MG TABLET (UD) PO SCH (09:43)
[2017-08-12] MEDS: RAMIPRIL 5 MG CAPSULE (FP) PO SCH (09:43)
[2017-08-12] MEDS: PANTOPRAZOLE 40 MG TABLET (FP) PO SCH ×2 (09:43→23:18)
[2017-08-12] MEDS: ARTIFICIAL TEARS (POLYVINYL ALCOHOL 1.4%) OPTH DROPS OU PRN (09:43)
[2017-08-12] MEDS: ASCORBIC ACID 500 MG TABLET (FP) PO SCH (09:44)
[2017-08-12] MEDS: FUROSEMIDE 40 MG TABLET (FP) PO SCH (09:44)
[2017-08-12] MEDS: AZITHROMYCIN 250 MG TABLET PO SCH (09:44)
[2017-08-12] MEDS: ASPIRIN 81 MG CHEWABLE TABLETS PO SCH (09:44)
[2017-08-12] MEDS: ISOSORBIDE MONONITRATE 30 MG TAB.SR.24H (FP) PO SCH (09:45)
[2017-08-12] MEDS: amLODIPine BESYLATE 5 MG TABLET (FP) PO SCH (09:45)
[2017-08-12] MEDS: POLYETHYLENE GLYCOL 3350 119 GM BTL PO SCH (09:45)
[2017-08-12 09:46] LABS: ANION GAP 9 (8-16); CALCIUM 8.7 mg/dL (8.5-10.1); CO2 28 mmol/L (21-32); CREATININE 1.4 mg/dL (0.55-1.02); GLUCOSE,RANDOM 135 mg/dL (74-106)
[2017-08-12] MEDS: TAMSULOSIN HCL 0.4 MG CAP.ER.24H (FP) PO SCH (11:07)
--- NOTE | 2017-08-12 11:23 | PN ---
Progress Note (short form) - Note Progress Note: PULMONARY AWAKE/ALERT VSS/AFEBRILE ANICTERIC SCATTERED CRACKLES S1S2 BS+ NO EDEMA LABS/MEDS/NOTES/IMAGES REVIEWED A/P Pneumonia UTI CAD LV Diastolic Dysfunction Acute on Chronic Renal Failure HTN DM - continue antibiotics - inhaled bronchodilators - changed steroids to oral - O2 to keep Spo2 >90% - IVF - monitor urine output, creatinine - DVT prophylaxis Mari BEACH MD
--- NOTE | 2017-08-12 12:17 | CON.GU ---
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: Peripheral Neuropathy Cardio/Vascular: Yes: CAD, CHF, HTN, [place] (10/02/2015 resulting in a single stent insertion) Gastrointestinal: Yes: Diverticulosis, Peptic Ulcer Disease, Other (colon polyp) Hepatobiliary: Yes: Cholecystitis (prior cholecystitis s/p perc roxana tube from 11/2013-02/2014), Choledocholithiasis (resolved spontaneously) Renal/: Yes: Renal Failure (on prior admission- resolved) Rheumatology: Yes: Gout Endocrine: Yes: Diabetes Mellitus (c/b peripheral neuropathy) Dermatology: Yes: 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 History of Recent Travel: No Home Medications - Allergies Allergies/Adverse Reactions: Allergies Allergy/AdvReac Type Severity Reaction Status Date / Time No Known Drug Allergies Allergy Verified 08/07/17 14:57 TOMATO SAUCE ONLY Allergy Uncoded 08/07/17 14:57 - Home Medications Home Medications: Ambulatory Orders Acetaminophen [Tylenol] 650 mg PO BID PRN 08/07/17 Amlodipine Besylate 5 mg PO DAILY 08/07/17 Ammonium Lactate [Skin Treatment] 1 applic TP DAILY 08/07/17 Ascorbic Acid [Vitamin C -] 500 mg PO DAILY 08/07/17 Aspirin [ASA -] 81 mg PO DAILY 08/07/17 Atorvastatin Ca [Lipitor] 40 mg PO DAILY 08/07/17 Azithromycin 500 mg PO ONCE 08/07/17 Bacitracin - [Bacitracin Topical Ointment -] 1 applic TP PRN PRN 08/07/17 Furosemide [Lasix -] 40 mg PO ASDIR 08/07/17 Gabapentin 300 mg PO TID 08/07/17 Guaifenesin 400 mg PO DAILY 08/07/17 Hydrocortisone Butyrate 15 gm TP BID 08/07/17 Hypromellose 0.5% Opth Soln [Artificial Tears] 1 drop OU QID PRN 08/07/17 Insulin Glargine,Hum.rec.anlog [Lantus (nf)] 35 units SQ HS 08/07/17 Isosorbide Mononitrate [Isosorbide Mononitrate ER] 30 mg PO DAILY 08/07/17 Loratadine [Claritin] 10 mg PO DAILY 08/07/17 Loteprednol Etab 0.5% Oph Susp [Lotemax (Nf)] 1 drop OS TID 08/07/17 Multivitamin [One Daily] 1 each PO DAILY 08/07/17 Pantoprazole Sodium 40 mg PO BID 08/07/17 Polyethylene Glycol 3350 [Miralax (For Daily Use) -] 17 gm PO DAILY 08/07/17 Potassium Chloride 20 meq PO DAILY 08/07/17 Ramipril 10 mg PO DAILY 08/07/17 Sennosides [Senna -] 1 tab PO ASDIR 08/07/17 Sitagliptin Phosphate [Januvia] 50 mg PO DAILY 08/07/17 Ticagrelor [Brilinta] 60 mg PO BID 08/07/17 Valacyclovir HCl [Valtrex -] 1,000 mg PO BID 08/07/17 Family Disease History - Family Disease History Family Disease History: Diabetes: Sister ( of CLOUD rt cirrhosis ), Heart Disease: Father ( at age 33 with WA), Brother ( after CABG), CA: Mother ( of Ovarian cancer at age 57), Other: Sister Physical Exam- Vital Signs: Vital Signs Temperature 97.8 F 08/11/17 22:00 Pulse Rate 71 08/11/17 22:00 Respiratory Rate 20 08/11/17 22:00 Blood Pressure 129/63 08/11/17 22:00 O2 Sat by Pulse Oximetry (%) 96 08/11/17 21:00 Labs: CBC, BMP 08/09/17 06:00 08/12/17 08:40 Problem List - Problems (1) CAROLYN (acute kidney injury) Assessment/Plan: 82 yo female w recent pneumonia currently improving Found to be in AUr w residual of 1200 then 800 cavanaugh curreently to sd urine clear Cr 1.4 Start flomax tx constipation as necessary can contribute to retention Repeat voiding trial if fails will need urodynamics as opd possible urethral dilation Code(s): N17.9 - ACUTE KIDNEY FAILURE, UNSPECIFIED
--- NOTE | 2017-08-12 14:33 | PN ---
Progress Note, Physician - Current Medication List Current Medications: Active Medications Acetaminophen (Tylenol -) 650 mg PO BID PRN PRN Reason: PAIN Last Admin: 08/09/17 03:40 Dose: 650 mg Albuterol Sulfate (Ventolin 0.083% Nebulizer Soln -) 1 amp NEB Q4H PRN PRN Reason: SHORT OF BREATH/WHEEZING Albuterol/Ipratropium (Duoneb -) 1 amp NEB TIDR JOSE ELIAS Last Admin: 08/12/17 14:03 Dose: 1 amp Amlodipine Besylate (Norvasc -) 5 mg PO DAILY [facility] Last Admin: 08/12/17 09:45 Dose: 5 mg Artificial Tears (Artificial Tears) 1 drop OU Q6H PRN PRN Reason: DRY EYES Last Admin: 08/12/17 09:43 Dose: 1 drop Ascorbic Acid (Vitamin C -) 500 mg PO DAILY [facility] Last Admin: 08/12/17 09:44 Dose: 500 mg Aspirin (Asa -) 81 mg PO DAILY [facility] Last Admin: 08/12/17 09:44 Dose: 81 mg Atorvastatin Calcium (Lipitor -) 40 mg PO HS [facility] Last Admin: 08/11/17 21:50 Dose: 40 mg Azithromycin (Zithromax -) 250 mg PO DAILY [facility] Last Admin: 08/12/17 09:44 Dose: 250 mg Bacitracin (Bacitracin -) 1 applic TP DAILY PRN PRN Reason: skin Last Admin: 08/12/17 09:41 Dose: 1 applic Furosemide (Lasix -) 40 mg PO DAILY [facility] Last Admin: 08/12/17 09:44 Dose: 40 mg Gabapentin (Neurontin -) 300 mg PO TID [facility] Last Admin: 08/12/17 13:59 Dose: 300 mg Guaifenesin (Diabetic Tussin Dm -) 10 ml PO Q4H PRN PRN Reason: COUGH Last Admin: 08/12/17 14:00 Dose: 10 ml CEFTRIAXONE 1 G/50 ML PREMIX (Ceftriaxone 1 Gm-D5w Bag) 50 mls @ 100 mls/hr IVPB DAILY [facility] Last Admin: 08/12/17 09:42 Dose: 100 mls/hr Insulin Aspart (Novolog Vial Sliding Scale -) 1 vial SQ ACHS JOSE ELIAS PRN Reason: Protocol Last Admin: 08/12/17 11:08 Dose: 2 unit Insulin Detemir (Levemir Vial) 35 units SQ HS [facility] Last Admin: 08/11/17 21:47 Dose: 35 unit Insulin Detemir (Levemir Vial) 15 units SQ AM [facility] Last Admin: 08/12/17 06:25 Dose: 15 unit Isosorbide Mononitrate (Imdur -) 30 mg PO DAILY [facility] Last Admin: 08/12/17 09:45 Dose: 30 mg Lactic Acid (Lac-Hydrin 12) 1 applic TP DAILY [facility] Last Admin: 08/12/17 09:42 Dose: 1 applic Pantoprazole Sodium (Protonix -) 40 mg PO BID [facility] Last Admin: 08/12/17 09:43 Dose: 40 mg Polyethylene Glycol (Miralax (For Daily Use) -) 17 gm PO DAILY [facility] Last Admin: 08/12/17 09:45 Dose: Not Given Prednisone (Deltasone -) 20 mg PO DAILY [facility] Last Admin: 08/12/17 09:43 Dose: 20 mg Ramipril (Altace -) 10 mg PO DAILY [facility] Last Admin: 08/12/17 09:43 Dose: 10 mg Sitagliptin Phosphate (Januvia -) 25 mg PO DAILY@0700 [facility] Last Admin: 08/12/17 06:24 Dose: 25 mg Tamsulosin HCl (Flomax -) 0.4 mg PO DAILY@0830 [facility] Last Admin: 08/12/17 11:07 Dose: 0.4 mg Ticagrelor (Brilinta) 60 mg PO BID [facility] Last Admin: 08/12/17 09:41 Dose: 60 mg - Objective Vital Signs: Vital Signs Temperature 97.8 F 08/11/17 22:00 Pulse Rate 71 08/11/17 22:00 Respiratory Rate 20 08/11/17 22:00 Blood Pressure 129/63 08/11/17 22:00 O2 Sat by Pulse Oximetry (%) 96 08/11/17 21:00 Cardiovascular: Yes: S1, S2 Respiratory: Yes: Regular, CTA Bilaterally Gastrointestinal: Yes: Normal Bowel Sounds, Soft Labs: CBC, BMP 08/09/17 06:00 08/12/17 08:40 INR, PTT INR 1.10 (0.82-1.09) 08/07/17 14:47 Assessment/Plan - Problems (1) CAROLYN (acute kidney injury) Code(s): N17.9 - ACUTE KIDNEY FAILURE, UNSPECIFIED (2) Dyspnea Assessment/Plan: -neb tx standing and PRN -nasal O2 -IV steroids -IV abx Code(s): R06.00 - DYSPNEA, UNSPECIFIED (3) Type 2 diabetes mellitus with diabetic chronic kidney disease Assessment/Plan: -Insulin long and short acting -Januvia -endocrinology consult appreciated Code(s): E11.22 - TYPE 2 DIABETES MELLITUS W DIABETIC CHRONIC KIDNEY DISEASE (4) Abdominal pain Code(s): R10.9 - UNSPECIFIED ABDOMINAL PAIN Qualifiers: Abdominal location: generalized Qualified Code(s): R10.84 - Generalized abdominal pain (5) UTI (urinary tract infection) Assessment/Plan: -ID on board -IV abx -d/c cavanaugh catheter, voiding trial--NOT SUCCESSFUL---UROLOGY -bladder scan in 12 hours Code(s): N39.0 - URINARY TRACT INFECTION, SITE NOT SPECIFIED Qualifiers: Urinary tract infection type: acute cystitis Hematuria presence: without hematuria Qualified Code(s): N30.00 - Acute cystitis without hematuria
--- NOTE | 2017-08-12 14:41 | PN ---
Progress Note, Physician History of Present Illness: Pt seen and examined at bedside. She is awake and appears comfortable. She denies shortness of breath. - Current Medication List Current Medications: Active Medications Acetaminophen (Tylenol -) 650 mg PO BID PRN PRN Reason: PAIN Last Admin: 08/09/17 03:40 Dose: 650 mg Albuterol Sulfate (Ventolin 0.083% Nebulizer Soln -) 1 amp NEB Q4H PRN PRN Reason: SHORT OF BREATH/WHEEZING Albuterol/Ipratropium (Duoneb -) 1 amp NEB TIDR JOSE ELIAS Last Admin: 08/12/17 14:03 Dose: 1 amp Amlodipine Besylate (Norvasc -) 5 mg PO DAILY JOSE ELIAS Last Admin: 08/12/17 09:45 Dose: 5 mg Artificial Tears (Artificial Tears) 1 drop OU Q6H PRN PRN Reason: DRY EYES Last Admin: 08/12/17 09:43 Dose: 1 drop Ascorbic Acid (Vitamin C -) 500 mg PO DAILY JOSE ELIAS Last Admin: 08/12/17 09:44 Dose: 500 mg Aspirin (Asa -) 81 mg PO DAILY JOSE ELIAS Last Admin: 08/12/17 09:44 Dose: 81 mg Atorvastatin Calcium (Lipitor -) 40 mg PO HS JOSE ELIAS Last Admin: 08/11/17 21:50 Dose: 40 mg Azithromycin (Zithromax -) 250 mg PO DAILY JOSE ELIAS Last Admin: 08/12/17 09:44 Dose: 250 mg Bacitracin (Bacitracin -) 1 applic TP DAILY PRN PRN Reason: skin Last Admin: 08/12/17 09:41 Dose: 1 applic Furosemide (Lasix -) 40 mg PO DAILY JOSE ELIAS Last Admin: 08/12/17 09:44 Dose: 40 mg Gabapentin (Neurontin -) 300 mg PO TID JOSE ELIAS Last Admin: 08/12/17 13:59 Dose: 300 mg Guaifenesin (Diabetic Tussin Dm -) 10 ml PO Q4H PRN PRN Reason: COUGH Last Admin: 08/12/17 14:00 Dose: 10 ml CEFTRIAXONE 1 G/50 ML PREMIX (Ceftriaxone 1 Gm-D5w Bag) 50 mls @ 100 mls/hr IVPB DAILY [facility] Last Admin: 08/12/17 09:42 Dose: 100 mls/hr Insulin Aspart (Novolog Vial Sliding Scale -) 1 vial SQ ACHS JOSE ELIAS PRN Reason: Protocol Last Admin: 08/12/17 11:08 Dose: 2 unit Insulin Detemir (Levemir Vial) 35 units SQ HS [facility] Last Admin: 08/11/17 21:47 Dose: 35 unit Insulin Detemir (Levemir Vial) 15 units SQ AM [facility] Last Admin: 08/12/17 06:25 Dose: 15 unit Isosorbide Mononitrate (Imdur -) 30 mg PO DAILY [facility] Last Admin: 08/12/17 09:45 Dose: 30 mg Lactic Acid (Lac-Hydrin 12) 1 applic TP DAILY [facility] Last Admin: 08/12/17 09:42 Dose: 1 applic Pantoprazole Sodium (Protonix -) 40 mg PO BID [facility] Last Admin: 08/12/17 09:43 Dose: 40 mg Polyethylene Glycol (Miralax (For Daily Use) -) 17 gm PO DAILY [facility] Last Admin: 08/12/17 09:45 Dose: Not Given Prednisone (Deltasone -) 20 mg PO DAILY [facility] Last Admin: 08/12/17 09:43 Dose: 20 mg Ramipril (Altace -) 10 mg PO DAILY [facility] Last Admin: 08/12/17 09:43 Dose: 10 mg Sitagliptin Phosphate (Januvia -) 25 mg PO DAILY@0700 [facility] Last Admin: 08/12/17 06:24 Dose: 25 mg Tamsulosin HCl (Flomax -) 0.4 mg PO DAILY@0830 [facility] Last Admin: 08/12/17 11:07 Dose: 0.4 mg Ticagrelor (Brilinta) 60 mg PO BID [facility] Last Admin: 08/12/17 09:41 Dose: 60 mg - Objective Vital Signs: Vital Signs Temperature 97.8 F 08/11/17 22:00 Pulse Rate 71 08/11/17 22:00 Respiratory Rate 20 08/11/17 22:00 Blood Pressure 129/63 08/11/17 22:00 O2 Sat by Pulse Oximetry (%) 96 08/11/17 21:00 Constitutional: Yes: Calm Eyes: Yes: Conjunctiva Clear HENT: Yes: Atraumatic Cardiovascular: Yes: S1, S2 Respiratory: Yes: On Nasal O2 Gastrointestinal: Yes: Soft Genitourinary: Yes: Rdoriguez Present Musculoskeletal: Yes: WNL Edema: Yes Edema: LLE: 1+, RLE: 1+ Neurological: Yes: Oriented Psychiatric: Yes: Oriented Labs: CBC, BMP 08/09/17 06:00 08/12/17 08:40 INR, PTT INR 1.10 (0.82-1.09) 08/07/17 14:47 Problem List - Problems (1) CKD (chronic kidney disease) Code(s): N18.9 - CHRONIC KIDNEY DISEASE, UNSPECIFIED (2) CAROLYN (acute kidney injury) Code(s): N17.9 - ACUTE KIDNEY FAILURE, UNSPECIFIED (3) Dyspnea Code(s): R06.00 - DYSPNEA, UNSPECIFIED (4) Pneumonia Code(s): J18.9 - PNEUMONIA, UNSPECIFIED ORGANISM (5) Type 2 diabetes mellitus with diabetic chronic kidney disease Code(s): E11.22 - TYPE 2 DIABETES MELLITUS W DIABETIC CHRONIC KIDNEY DISEASE (6) CHF (congestive heart failure) Code(s): I50.9 - HEART FAILURE, UNSPECIFIED Qualifiers: Congestive heart failure type: diastolic Congestive heart failure chronicity: chronic Qualified Code(s): I50.32 - Chronic diastolic (congestive ) heart failure Assessment/Plan Current Medications Generic Name Dose Route Start Last Admin Trade Name Freq PRN Reason Stop Dose Admin Acetaminophen 650 mg 08/07/17 19:50 08/09/17 03:40 Tylenol - PO 650 mg BID PRN Administration PAIN Albuterol Sulfate 1 amp 08/09/17 11:36 Ventolin 0.083% Nebulizer Soln - NEB Q4H PRN SHORT OF BREATH/WHEEZING Albuterol/Ipratropium 1 amp 08/09/17 11:45 08/12/17 14:03 Duoneb - NEB 1 amp TIDR JOSE ELIAS Administration Amlodipine Besylate 5 mg 08/08/17 10:00 08/12/17 09:45 Norvasc - PO 5 mg DAILY JOSE ELIAS Administration Artificial Tears 1 drop 08/07/17 19:50 08/12/17 09:43 Artificial Tears OU 1 drop Q6H PRN Administration DRY EYES Ascorbic Acid 500 mg 08/08/17 10:00 08/12/17 09:44 Vitamin C - PO 500 mg DAILY JOSE ELIAS Administration Aspirin 81 mg 08/08/17 10:00 08/12/17 09:44 Asa - PO 81 mg DAILY JOSE ELIAS Administration Atorvastatin Calcium 40 mg 08/07/17 22:00 08/11/17 21:50 Lipitor - PO 40 mg HS JOSE ELIAS Administration Azithromycin 250 mg 08/11/17 10:00 08/12/17 09:44 Zithromax - PO 250 mg DAILY JOSE ELIAS Administration Bacitracin 1 applic 08/07/17 19:50 08/12/17 09:41 Bacitracin - TP 1 applic DAILY PRN Administration skin Furosemide 40 mg 08/10/17 15:45 08/12/17 09:44 Lasix - PO 40 mg DAILY JOSE ELIAS Administration Gabapentin 300 mg 08/07/17 22:00 08/12/17 13:59 Neurontin - PO 300 mg TID JOSE ELIAS Administration Guaifenesin 10 ml 08/09/17 09:50 08/12/17 14:00 Diabetic Tussin Dm - PO 10 ml Q4H PRN Administration COUGH CEFTRIAXONE 1 G/50 ML PREMIX 50 mls @ 100 mls/hr 08/08/17 10:00 08/12/17 09: 42 Ceftriaxone 1 Gm-D5w Bag IVPB 100 mls/hr DAILY JOSE ELIAS Administration Insulin Aspart 1 vial 08/07/17 22:00 08/12/17 11:08 Novolog Vial Sliding Scale - SQ 2 unit ACHS JOSE ELIAS Administration Protocol Insulin Detemir 35 units 08/07/17 22:00 08/11/17 21:47 Levemir Vial SQ 35 unit HS JOSE ELIAS Administration Insulin Detemir 15 units 08/09/17 07:00 08/12/17 06:25 Levemir Vial SQ 15 unit AM JOSE ELIAS Administration Isosorbide Mononitrate 30 mg 08/08/17 10:00 08/12/17 09:45 Imdur - PO 30 mg DAILY JOSE ELIAS Administration Lactic Acid 1 applic 08/08/17 10:00 08/12/17 09:42 Lac-Hydrin 12 TP 1 applic DAILY JOSE ELIAS Administration Pantoprazole Sodium 40 mg 08/07/17 22:00 08/12/17 09:43 Protonix - PO 40 mg BID JOSE ELIAS Administration Polyethylene Glycol 17 gm 08/08/17 10:00 08/12/17 09:45 Miralax (For Daily Use) - PO Not Given DAILY JOSE ELIAS Prednisone 20 mg 08/11/17 12:30 08/12/17 09:43 Deltasone - PO 20 mg DAILY JOSE ELIAS Administration Ramipril 10 mg 08/08/17 10:00 08/12/17 09:43 Altace - PO 10 mg DAILY JOSE ELIAS Administration Sitagliptin Phosphate 25 mg 08/08/17 07:00 08/12/17 06:24 Januvia - PO 25 mg DAILY@0700 JOSE ELIAS Administration Tamsulosin HCl 0.4 mg 08/09/17 08:30 08/12/17 11:07 Flomax - PO 0.4 mg DAILY@0830 JOSE ELIAS Administration Ticagrelor 60 mg 08/07/17 22:00 08/12/17 09:41 Brilinta PO 60 mg BID JOSE ELIAS Administration Impression 1. CAROLYN 2. UTI 3. CAD 4. HTN 5. DM 6. CHF 7. hyperlipidemia 8. renal cyst 9. CKD Plan - cont with lasix - urology input appreciated - cont with lasix at a daily dose, will increase to BID on discharge - repeat bmp in am - will follow Dr Hua
[2017-08-12] MEDS: ATORVASTATIN CA 40 MG TABLET (FP) PO SCH (23:17)
[2017-08-13] MEDS: ALBUTEROL SO4 2.5/IPRATROPIUM 0.5 INH SOL 3 ML VIAL.NEB. NEB SCH ×3 (05:45→22:00)
[2017-08-13] MEDS: INSULIN SLIDING SCALE (NOVOLOG) 1 VIAL SQ SCH ×4 (07:00→21:17)
[2017-08-13] MEDS: sitaGLIPtin PHOSPHATE 25 MG TABLET (FP) PO SCH (07:00)
[2017-08-13] MEDS: GABAPENTIN 300 MG CAPSULE (FP) PO SCH ×3 (07:00→21:20)
[2017-08-13] MEDS: INSULIN DETEMIR 100 UNITS/ML MDV SQ SCH ×2 (07:30→21:18)
[2017-08-13 09:15] LABS: ANION GAP 8 (8-16); CALCIUM 8.5 mg/dL (8.5-10.1); CO2 29 mmol/L (21-32); GLUCOSE,RANDOM 60 mg/dL (74-106)
[2017-08-13 09:16] LABS: CREATININE 1.1 mg/dL (0.55-1.02)
--- NOTE | 2017-08-13 10:12 | PN ---
Progress Note, Physician Chief Complaint: patient is awake alert in bed no distress - Current Medication List Current Medications: Active Medications Acetaminophen (Tylenol -) 650 mg PO BID PRN PRN Reason: PAIN Last Admin: 08/09/17 03:40 Dose: 650 mg Albuterol Sulfate (Ventolin 0.083% Nebulizer Soln -) 1 amp NEB Q4H PRN PRN Reason: SHORT OF BREATH/WHEEZING Albuterol/Ipratropium (Duoneb -) 1 amp NEB TIDR JOSE ELIAS Last Admin: 08/13/17 05:45 Dose: 1 amp Amlodipine Besylate (Norvasc -) 5 mg PO DAILY JOSE ELIAS Last Admin: 08/12/17 09:45 Dose: 5 mg Artificial Tears (Artificial Tears) 1 drop OU Q6H PRN PRN Reason: DRY EYES Last Admin: 08/12/17 09:43 Dose: 1 drop Ascorbic Acid (Vitamin C -) 500 mg PO DAILY JOSE ELIAS Last Admin: 08/12/17 09:44 Dose: 500 mg Aspirin (Asa -) 81 mg PO DAILY JOSE ELIAS Last Admin: 08/12/17 09:44 Dose: 81 mg Atorvastatin Calcium (Lipitor -) 40 mg PO HS JOSE ELIAS Last Admin: 08/12/17 23:17 Dose: 40 mg Azithromycin (Zithromax -) 250 mg PO DAILY JOSE ELIAS Last Admin: 08/12/17 09:44 Dose: 250 mg Bacitracin (Bacitracin -) 1 applic TP DAILY PRN PRN Reason: skin Last Admin: 08/12/17 09:41 Dose: 1 applic Furosemide (Lasix -) 40 mg PO DAILY JOSE ELIAS Last Admin: 08/12/17 09:44 Dose: 40 mg Gabapentin (Neurontin -) 300 mg PO TID JOSE ELIAS Last Admin: 08/13/17 07:00 Dose: Not Given Guaifenesin (Diabetic Tussin Dm -) 10 ml PO Q4H PRN PRN Reason: COUGH Last Admin: 08/12/17 14:00 Dose: 10 ml CEFTRIAXONE 1 G/50 ML PREMIX (Ceftriaxone 1 Gm-D5w Bag) 50 mls @ 100 mls/hr IVPB DAILY [facility]SE ELIAS Last Admin: 08/12/17 09:42 Dose: 100 mls/hr Insulin Aspart (Novolog Vial Sliding Scale -) 1 vial SQ ACHS JOSE ELIAS PRN Reason: Protocol Last Admin: 08/13/17 07:00 Dose: Not Given Insulin Detemir (Levemir Vial) 35 units SQ HS [facility] Last Admin: 08/12/17 22:59 Dose: 35 unit Insulin Detemir (Levemir Vial) 15 units SQ AM [facility] Last Admin: 08/13/17 07:30 Dose: Not Given Isosorbide Mononitrate (Imdur -) 30 mg PO DAILY [facility] Last Admin: 08/12/17 09:45 Dose: 30 mg Lactic Acid (Lac-Hydrin 12) 1 applic TP DAILY [facility] Last Admin: 08/12/17 09:42 Dose: 1 applic Pantoprazole Sodium (Protonix -) 40 mg PO BID [facility] Last Admin: 08/12/17 23:18 Dose: 40 mg Polyethylene Glycol (Miralax (For Daily Use) -) 17 gm PO DAILY [facility] Last Admin: 08/12/17 09:45 Dose: Not Given Prednisone (Deltasone -) 20 mg PO DAILY [facility] Last Admin: 08/12/17 09:43 Dose: 20 mg Ramipril (Altace -) 10 mg PO DAILY [facility] Last Admin: 08/12/17 09:43 Dose: 10 mg Sitagliptin Phosphate (Januvia -) 25 mg PO DAILY@0700 [facility] Last Admin: 08/13/17 07:00 Dose: Not Given Tamsulosin HCl (Flomax -) 0.4 mg PO DAILY@0830 [facility] Last Admin: 08/12/17 11:07 Dose: 0.4 mg Ticagrelor (Brilinta) 60 mg PO BID [facility] Last Admin: 08/12/17 23:17 Dose: 60 mg - Objective Vital Signs: Vital Signs Temperature 97.5 F L 08/13/17 05:41 Pulse Rate 56 L 08/13/17 05:41 Respiratory Rate 20 08/13/17 05:41 Blood Pressure 122/49 08/13/17 05:41 O2 Sat by Pulse Oximetry (%) 96 08/12/17 21:00 Constitutional: Yes: Calm Neck: Yes: Trachea Midline Cardiovascular: Yes: Regular Rate and Rhythm, S1, S2 Respiratory: Yes: CTA Bilaterally Gastrointestinal: Yes: Normal Bowel Sounds, Soft Edema: Yes Neurological: Yes: Alert, Oriented Labs: CBC, BMP 08/09/17 06:00 08/13/17 07:30 INR, PTT INR 1.10 (0.82-1.09) 08/07/17 14:47 Problem List - Problems (1) CAROLYN (acute kidney injury) Assessment/Plan: on 40mg po lasix creatinine slightly better today Code(s): N17.9 - ACUTE KIDNEY FAILURE, UNSPECIFIED (2) Pneumonia Assessment/Plan: zithromax last dose today bronchodilators taper prednisone dose to 10mg Code(s): J18.9 - PNEUMONIA, UNSPECIFIED ORGANISM (3) Retention of urine Assessment/Plan: urology consult noted on flomax trial of voiding today- dc cavanaugh and repeat bladder scan in 8 hours Code(s): R33.9 - RETENTION OF URINE, UNSPECIFIED (4) Type 2 diabetes mellitus with diabetic chronic kidney disease Assessment/Plan: on insulin bid Code(s): E11.22 - TYPE 2 DIABETES MELLITUS W DIABETIC CHRONIC KIDNEY DISEASE (5) CAD (coronary artery disease) Assessment/Plan: aspirin and statin, brilinta Code(s): I25.10 - ATHSCL HEART DISEASE OF [place] CORONARY ARTERY W/O ANG PCTRS Qualifiers: Coronary Disease-Associated Artery/Lesion type: unspecified vessel or lesion type [place] vs. transplanted heart: [place] heart Associated angina: with unstable angina Qualified Code(s): I25.110 - Atherosclerotic heart disease of [place] coronary artery with unstable angina pectoris (6) UTI (urinary tract infection) Assessment/Plan: Microbiology 08/07/17 14:47 Urine - Urine - Catheterized Urine Culture - Final Escherichia Coli on rocephin last dose today Code(s): N39.0 - URINARY TRACT INFECTION, SITE NOT SPECIFIED Qualifiers: Urinary tract infection type: acute cystitis Hematuria presence: without hematuria Qualified Code(s): N30.00 - Acute cystitis without hematuria Assessment/Plan dc planniing for tmw trial of void today last dose of abx today
[2017-08-13] MEDS ORDERED: predniSONE 10 MG TABLET (UD) PO SCH (10:13)
[2017-08-13] MEDS: CEFTRIAXONE 1 G/50 ML PREMIX 50 ML IVPB SCH (10:19)
[2017-08-13] MEDS: RAMIPRIL 5 MG CAPSULE (FP) PO SCH (10:19)
[2017-08-13] MEDS: ASCORBIC ACID 500 MG TABLET (FP) PO SCH (10:19)
[2017-08-13] MEDS: predniSONE 20 MG TABLET (UD) PO SCH (10:20)
[2017-08-13] MEDS: PANTOPRAZOLE 40 MG TABLET (FP) PO SCH ×2 (10:20→21:20)
[2017-08-13] MEDS: ASPIRIN 81 MG CHEWABLE TABLETS PO SCH (10:20)
[2017-08-13] MEDS: ISOSORBIDE MONONITRATE 30 MG TAB.SR.24H (FP) PO SCH (10:21)
[2017-08-13] MEDS: FUROSEMIDE 40 MG TABLET (FP) PO SCH (10:21)
[2017-08-13] MEDS: TAMSULOSIN HCL 0.4 MG CAP.ER.24H (FP) PO SCH (10:21)
[2017-08-13] MEDS: TICAGRELOR 60 MG TABLET PO SCH ×2 (10:21→21:20)
[2017-08-13] MEDS: amLODIPine BESYLATE 5 MG TABLET (FP) PO SCH (10:22)
[2017-08-13] MEDS: AMMONIUM LACTATE 12% LOTION 225 GM BOTTLE TP SCH (10:22)
[2017-08-13] MEDS: POLYETHYLENE GLYCOL 3350 119 GM BTL PO SCH (10:22)
[2017-08-13] MEDS: AZITHROMYCIN 250 MG TABLET PO SCH (10:23)
--- NOTE | 2017-08-13 10:41 | PN ---
Progress Note (short form) - Note Progress Note: Resting in bed in NAD. No acute events overnight. Intake & Output 08/10/17 08/11/17 08/12/17 08/13/17 23:59 23:59 23:59 23:59 Intake Total 1100 550 930 Output Total 3300 4100 2900 1000 Balance -2200 -3550 -1970 -1000 Weight 190 lb 4 oz 189 lb 9 oz 186 lb 195 lb 1 oz Last Vital Signs Temp Pulse Resp BP Pulse Ox 97.5 F L 56 L 20 122/49 96 08/13/17 05:41 08/13/17 05:41 08/13/17 05:41 08/13/17 05:41 08/12/17 21:00 Active Medications Acetaminophen (Tylenol -) 650 mg PO BID PRN PRN Reason: PAIN Last Admin: 08/09/17 03:40 Dose: 650 mg Albuterol Sulfate (Ventolin 0.083% Nebulizer Soln -) 1 amp NEB Q4H PRN PRN Reason: SHORT OF BREATH/WHEEZING Albuterol/Ipratropium (Duoneb -) 1 amp NEB TIDR JOSE ELIAS Last Admin: 08/13/17 05:45 Dose: 1 amp Amlodipine Besylate (Norvasc -) 5 mg PO DAILY JOSE ELIAS Last Admin: 08/13/17 10:22 Dose: 5 mg Artificial Tears (Artificial Tears) 1 drop OU Q6H PRN PRN Reason: DRY EYES Last Admin: 08/12/17 09:43 Dose: 1 drop Ascorbic Acid (Vitamin C -) 500 mg PO DAILY JOSE ELIAS Last Admin: 08/13/17 10:19 Dose: 500 mg Aspirin (Asa -) 81 mg PO DAILY JOSE ELIAS Last Admin: 08/13/17 10:20 Dose: 81 mg Atorvastatin Calcium (Lipitor -) 40 mg PO HS JOSE ELIAS Last Admin: 08/12/17 23:17 Dose: 40 mg Azithromycin (Zithromax -) 250 mg PO DAILY JOSE ELIAS Last Admin: 08/13/17 10:23 Dose: 250 mg Bacitracin (Bacitracin -) 1 applic TP DAILY PRN PRN Reason: skin Last Admin: 08/12/17 09:41 Dose: 1 applic Furosemide (Lasix -) 40 mg PO DAILY JOSE ELIAS Last Admin: 08/13/17 10:21 Dose: 40 mg Gabapentin (Neurontin -) 300 mg PO TID JOSE ELIAS Last Admin: 08/13/17 07:00 Dose: Not Given Guaifenesin (Diabetic Tussin Dm -) 10 ml PO Q4H PRN PRN Reason: COUGH Last Admin: 08/12/17 14:00 Dose: 10 ml CEFTRIAXONE 1 G/50 ML PREMIX (Ceftriaxone 1 Gm-D5w Bag) 50 mls @ 100 mls/hr IVPB DAILY [facility] Last Admin: 08/13/17 10:19 Dose: 100 mls/hr Insulin Aspart (Novolog Vial Sliding Scale -) 1 vial SQ ACHS [facility] PRN Reason: Protocol Last Admin: 08/13/17 07:00 Dose: Not Given Insulin Detemir (Levemir Vial) 35 units SQ HS [facility] Last Admin: 08/12/17 22:59 Dose: 35 unit Insulin Detemir (Levemir Vial) 15 units SQ AM [facility] Last Admin: 08/13/17 07:30 Dose: Not Given Isosorbide Mononitrate (Imdur -) 30 mg PO DAILY [facility] Last Admin: 08/13/17 10:21 Dose: 30 mg Lactic Acid (Lac-Hydrin 12) 1 applic TP DAILY [facility] Last Admin: 08/13/17 10:22 Dose: 1 applic Pantoprazole Sodium (Protonix -) 40 mg PO BID [facility] Last Admin: 08/13/17 10:20 Dose: 40 mg Polyethylene Glycol (Miralax (For Daily Use) -) 17 gm PO DAILY [facility] Last Admin: 08/13/17 10:22 Dose: Not Given Prednisone (Deltasone -) 10 mg PO DAILY [facility] Ramipril (Altace -) 10 mg PO DAILY [facility] Last Admin: 08/13/17 10:19 Dose: 10 mg Sitagliptin Phosphate (Januvia -) 25 mg PO DAILY@0700 [facility] Last Admin: 08/13/17 07:00 Dose: Not Given Tamsulosin HCl (Flomax -) 0.4 mg PO DAILY@0830 [facility] Last Admin: 08/13/17 10:21 Dose: 0.4 mg Ticagrelor (Brilinta) 60 mg PO BID [facility] Last Admin: 08/13/17 10:21 Dose: 60 mg Constitutional: Yes: NAD Neck: Yes: Trachea Midline Cardiovascular: Yes: Regular Rate and Rhythm, S1, S2 Respiratory: Yes: few scattered rhonchi, no wheeze Gastrointestinal: Yes: Normal Bowel Sounds, Soft Edema: Yes Neurological: Yes: Alert, Oriented Labs: Laboratory Results - last 24 hr 08/12/17 08/12/17 08/12/17 11:07 16:52 22:54 Sodium Potassium Chloride Carbon Dioxide Anion Gap BUN Creatinine POC Glucometer 221 290 314 Random Glucose Calcium 08/13/17 08/13/17 05:44 07:30 Sodium 141 Potassium 4.0 Chloride 104 Carbon Dioxide 29 Anion Gap 8 BUN 54 H Creatinine 1.1 H D POC Glucometer 104 Random Glucose 60 L D Calcium 8.5 IMP: Pneumonia UTI CAD LV Diastolic Dysfunction Acute on Chronic Renal Failure HTN DM - Can change to PO ABX - inhaled bronchodilators - Prednisone - O2 to keep Spo2 >90% - DVT prophylaxis - D/C planning Dr Atkins
[2017-08-13] MEDS: guaiFENesin/D-M SUGAR-FREE/ACLHOL-FREE 118 ML BOTTLE PO PRN (10:49)
--- NOTE | 2017-08-13 12:04 | PN ---
Progress Note, Physician History of Present Illness: Pt seen and examined at bedside. She is awake and alert. She denies shortness of breath. - Current Medication List Current Medications: Active Medications Acetaminophen (Tylenol -) 650 mg PO BID PRN PRN Reason: PAIN Last Admin: 08/09/17 03:40 Dose: 650 mg Albuterol Sulfate (Ventolin 0.083% Nebulizer Soln -) 1 amp NEB Q4H PRN PRN Reason: SHORT OF BREATH/WHEEZING Albuterol/Ipratropium (Duoneb -) 1 amp NEB TIDR JOSE ELIAS Last Admin: 08/13/17 05:45 Dose: 1 amp Amlodipine Besylate (Norvasc -) 5 mg PO DAILY JOSE ELIAS Last Admin: 08/13/17 10:22 Dose: 5 mg Artificial Tears (Artificial Tears) 1 drop OU Q6H PRN PRN Reason: DRY EYES Last Admin: 08/12/17 09:43 Dose: 1 drop Ascorbic Acid (Vitamin C -) 500 mg PO DAILY JOSE ELIAS Last Admin: 08/13/17 10:19 Dose: 500 mg Aspirin (Asa -) 81 mg PO DAILY JOSE ELIAS Last Admin: 08/13/17 10:20 Dose: 81 mg Atorvastatin Calcium (Lipitor -) 40 mg PO HS JOSE ELIAS Last Admin: 08/12/17 23:17 Dose: 40 mg Azithromycin (Zithromax -) 250 mg PO DAILY JOSE ELIAS Last Admin: 08/13/17 10:23 Dose: 250 mg Bacitracin (Bacitracin -) 1 applic TP DAILY PRN PRN Reason: skin Last Admin: 08/12/17 09:41 Dose: 1 applic Furosemide (Lasix -) 40 mg PO DAILY JOSE ELIAS Last Admin: 08/13/17 10:21 Dose: 40 mg Gabapentin (Neurontin -) 300 mg PO TID JOSE ELIAS Last Admin: 08/13/17 07:00 Dose: Not Given Guaifenesin (Diabetic Tussin Dm -) 10 ml PO Q4H PRN PRN Reason: COUGH Last Admin: 08/13/17 10:49 Dose: 10 ml CEFTRIAXONE 1 G/50 ML PREMIX (Ceftriaxone 1 Gm-D5w Bag) 50 mls @ 100 mls/hr IVPB DAILY [facility] Last Admin: 08/13/17 10:19 Dose: 100 mls/hr Insulin Aspart (Novolog Vial Sliding Scale -) 1 vial SQ ACHS JOSE ELIAS PRN Reason: Protocol Last Admin: 08/13/17 07:00 Dose: Not Given Insulin Detemir (Levemir Vial) 35 units SQ HS [facility] Last Admin: 08/12/17 22:59 Dose: 35 unit Insulin Detemir (Levemir Vial) 15 units SQ AM [facility] Last Admin: 08/13/17 07:30 Dose: Not Given Isosorbide Mononitrate (Imdur -) 30 mg PO DAILY [facility] Last Admin: 08/13/17 10:21 Dose: 30 mg Lactic Acid (Lac-Hydrin 12) 1 applic TP DAILY [facility] Last Admin: 08/13/17 10:22 Dose: 1 applic Pantoprazole Sodium (Protonix -) 40 mg PO BID [facility] Last Admin: 08/13/17 10:20 Dose: 40 mg Polyethylene Glycol (Miralax (For Daily Use) -) 17 gm PO DAILY [facility] Last Admin: 08/13/17 10:22 Dose: Not Given Prednisone (Deltasone -) 10 mg PO DAILY [facility] Ramipril (Altace -) 10 mg PO DAILY [facility] Last Admin: 08/13/17 10:19 Dose: 10 mg Sitagliptin Phosphate (Januvia -) 25 mg PO DAILY@0700 [facility] Last Admin: 08/13/17 07:00 Dose: Not Given Tamsulosin HCl (Flomax -) 0.4 mg PO DAILY@0830 [facility] Last Admin: 08/13/17 10:21 Dose: 0.4 mg Ticagrelor (Brilinta) 60 mg PO BID [facility] Last Admin: 08/13/17 10:21 Dose: 60 mg - Objective Vital Signs: Vital Signs Temperature 97.5 F L 08/13/17 05:41 Pulse Rate 56 L 08/13/17 05:41 Respiratory Rate 20 08/13/17 05:41 Blood Pressure 122/49 08/13/17 05:41 O2 Sat by Pulse Oximetry (%) 96 08/12/17 21:00 Constitutional: Yes: Calm Eyes: Yes: Conjunctiva Clear HENT: Yes: Atraumatic Neck: Yes: Supple Cardiovascular: Yes: S1, S2 Respiratory: Yes: On Nasal O2 Gastrointestinal: Yes: Soft Genitourinary: Yes: Cavanaugh Present Edema: Yes Edema: LLE: Trace, RLE: Trace Neurological: Yes: Oriented Psychiatric: Yes: Oriented Labs: CBC, BMP 08/09/17 06:00 08/13/17 07:30 INR, PTT INR 1.10 (0.82-1.09) 08/07/17 14:47 Problem List - Problems (1) CKD (chronic kidney disease) Code(s): N18.9 - CHRONIC KIDNEY DISEASE, UNSPECIFIED (2) CAROLYN (acute kidney injury) Code(s): N17.9 - ACUTE KIDNEY FAILURE, UNSPECIFIED (3) Dyspnea Code(s): R06.00 - DYSPNEA, UNSPECIFIED (4) Pneumonia Code(s): J18.9 - PNEUMONIA, UNSPECIFIED ORGANISM (5) Type 2 diabetes mellitus with diabetic chronic kidney disease Code(s): E11.22 - TYPE 2 DIABETES MELLITUS W DIABETIC CHRONIC KIDNEY DISEASE (6) CHF (congestive heart failure) Code(s): I50.9 - HEART FAILURE, UNSPECIFIED Qualifiers: Congestive heart failure type: diastolic Congestive heart failure chronicity: chronic Qualified Code(s): I50.32 - Chronic diastolic (congestive ) heart failure Assessment/Plan Current Medications Generic Name Dose Route Start Last Admin Trade Name Freq PRN Reason Stop Dose Admin Acetaminophen 650 mg 08/07/17 19:50 08/09/17 03:40 Tylenol - PO 650 mg BID PRN Administration PAIN Albuterol Sulfate 1 amp 08/09/17 11:36 Ventolin 0.083% Nebulizer Soln - NEB Q4H PRN SHORT OF BREATH/WHEEZING Albuterol/Ipratropium 1 amp 08/09/17 11:45 08/13/17 05:45 Duoneb - NEB 1 amp TIDR JOSE ELIAS Administration Amlodipine Besylate 5 mg 08/08/17 10:00 08/13/17 10:22 Norvasc - PO 5 mg DAILY JOSE ELIAS Administration Artificial Tears 1 drop 08/07/17 19:50 08/12/17 09:43 Artificial Tears OU 1 drop Q6H PRN Administration DRY EYES Ascorbic Acid 500 mg 08/08/17 10:00 08/13/17 10:19 Vitamin C - PO 500 mg DAILY JOSE ELIAS Administration Aspirin 81 mg 08/08/17 10:00 08/13/17 10:20 Asa - PO 81 mg DAILY JOSE ELIAS Administration Atorvastatin Calcium 40 mg 08/07/17 22:00 08/12/17 23:17 Lipitor - PO 40 mg HS JOSE ELIAS Administration Azithromycin 250 mg 08/11/17 10:00 08/13/17 10:23 Zithromax - PO 250 mg DAILY JOSE ELIAS Administration Bacitracin 1 applic 08/07/17 19:50 08/12/17 09:41 Bacitracin - TP 1 applic DAILY PRN Administration skin Furosemide 40 mg 08/10/17 15:45 08/13/17 10:21 Lasix - PO 40 mg DAILY JOSE ELIAS Administration Gabapentin 300 mg 08/07/17 22:00 08/13/17 07:00 Neurontin - PO Not Given TID JOSE ELIAS Guaifenesin 10 ml 08/09/17 09:50 08/13/17 10:49 Diabetic Tussin Dm - PO 10 ml Q4H PRN Administration COUGH CEFTRIAXONE 1 G/50 ML PREMIX 50 mls @ 100 mls/hr 08/08/17 10:00 08/13/17 10: 19 Ceftriaxone 1 Gm-D5w Bag IVPB 100 mls/hr DAILY JOSE ELIAS Administration Insulin Aspart 1 vial 08/07/17 22:00 08/13/17 07:00 Novolog Vial Sliding Scale - SQ Not Given ACHS [facility] Protocol Insulin Detemir 35 units 08/07/17 22:00 08/12/17 22:59 Levemir Vial SQ 35 unit HS JOSE ELIAS Administration Insulin Detemir 15 units 08/09/17 07:00 08/13/17 07:30 Levemir Vial SQ Not Given AM JOSE ELIAS Isosorbide Mononitrate 30 mg 08/08/17 10:00 08/13/17 10:21 Imdur - PO 30 mg DAILY JOSE ELIAS Administration Lactic Acid 1 applic 08/08/17 10:00 08/13/17 10:22 Lac-Hydrin 12 TP 1 applic DAILY JOSE ELIAS Administration Pantoprazole Sodium 40 mg 08/07/17 22:00 08/13/17 10:20 Protonix - PO 40 mg BID JOSE ELIAS Administration Polyethylene Glycol 17 gm 08/08/17 10:00 08/13/17 10:22 Miralax (For Daily Use) - PO Not Given DAILY JOSE ELIAS Prednisone 10 mg 08/13/17 10:13 Deltasone - PO DAILY JOSE ELIAS Ramipril 10 mg 08/08/17 10:00 08/13/17 10:19 Altace - PO 10 mg DAILY JOSE ELIAS Administration Sitagliptin Phosphate 25 mg 08/08/17 07:00 08/13/17 07:00 Januvia - PO Not Given DAILY@0700 [facility] Tamsulosin HCl 0.4 mg 08/09/17 08:30 08/13/17 10:21 Flomax - PO 0.4 mg DAILY@0830 [facility] Administration Ticagrelor 60 mg 08/07/17 22:00 08/13/17 10:21 Brilinta PO 60 mg BID JOSE ELIAS Administration Impression 1. CAROLYN 2. UTI 3. CAD 4. HTN 5. DM 6. CHF 7. hyperlipidemia 8. renal cyst 9. CKD 10. urinary retention Plan - d/c cavanaugh and give a voiding trial - out of bed to chair - renal function is stable - cont with lasix at a daily dose, will increase to BID on discharge - repeat bmp in am - will follow Dr Hua
[2017-08-13] MEDS ORDERED: PT OWN MED DRAWER 7, Y5N ONE (20:57)
[2017-08-13] MEDS ORDERED: INSULIN (NOVOLOG) ASPART 100 UNITS/ML 10ML VIAL ONE (21:16)
[2017-08-13] MEDS: ATORVASTATIN CA 40 MG TABLET (FP) PO SCH (21:20)
[2017-08-14] MEDS: GABAPENTIN 300 MG CAPSULE (FP) PO SCH ×2 (06:18→13:24)
[2017-08-14] MEDS: INSULIN SLIDING SCALE (NOVOLOG) 1 VIAL SQ SCH ×2 (06:18→12:39)
[2017-08-14] MEDS: sitaGLIPtin PHOSPHATE 25 MG TABLET (FP) PO SCH (06:20)
[2017-08-14] MEDS: INSULIN DETEMIR 100 UNITS/ML MDV SQ SCH (06:22)
[2017-08-14] MEDS: ALBUTEROL SO4 2.5/IPRATROPIUM 0.5 INH SOL 3 ML VIAL.NEB. NEB SCH (06:29)
[2017-08-14 08:35] LABS: ANION GAP 8 (8-16); CALCIUM 8.5 mg/dL (8.5-10.1); CO2 28 mmol/L (21-32); CREATININE 1.3 mg/dL (0.55-1.02); GLUCOSE,RANDOM 93 mg/dL (74-106)
[2017-08-14] MEDS: TAMSULOSIN HCL 0.4 MG CAP.ER.24H (FP) PO SCH (10:30)
[2017-08-14] MEDS: ASPIRIN 81 MG CHEWABLE TABLETS PO SCH (10:30)
[2017-08-14] MEDS: RAMIPRIL 5 MG CAPSULE (FP) PO SCH (10:30)
[2017-08-14] MEDS: TICAGRELOR 60 MG TABLET PO SCH (10:30)
[2017-08-14] MEDS: ISOSORBIDE MONONITRATE 30 MG TAB.SR.24H (FP) PO SCH (10:31)
[2017-08-14] MEDS: CEFTRIAXONE 1 G/50 ML PREMIX 50 ML IVPB SCH (10:31)
[2017-08-14] MEDS: AMMONIUM LACTATE 12% LOTION 225 GM BOTTLE TP SCH (10:31)
[2017-08-14] MEDS: amLODIPine BESYLATE 5 MG TABLET (FP) PO SCH (10:32)
[2017-08-14] MEDS: POLYETHYLENE GLYCOL 3350 119 GM BTL PO SCH (10:32)
[2017-08-14] MEDS: PANTOPRAZOLE 40 MG TABLET (FP) PO SCH (10:32)
[2017-08-14] MEDS: ASCORBIC ACID 500 MG TABLET (FP) PO SCH (10:32)
[2017-08-14] MEDS: FUROSEMIDE 40 MG TABLET (FP) PO SCH (10:32)
--- NOTE | 2017-08-14 10:44 | PN ---
Progress Note (short form) - Note Progress Note: Resting in bed in NAD. No acute events overnight. No CP or SOB. Intake & Output 08/11/17 08/12/17 08/13/17 08/14/17 23:59 23:59 23:59 23:59 Intake Total 025 969 1431 Output Total 4100 2900 1400 Balance -3550 -1970 -400 Weight 189 lb 9 oz 186 lb 195 lb 1 oz 194 lb 8 oz Last Vital Signs Temp Pulse Resp BP Pulse Ox 97.9 F 59 L 20 114/55 96 08/14/17 06:00 08/14/17 06:00 08/14/17 06:00 08/14/17 06:00 08/13/17 21:00 Active Medications Acetaminophen (Tylenol -) 650 mg PO BID PRN PRN Reason: PAIN Last Admin: 08/09/17 03:40 Dose: 650 mg Albuterol Sulfate (Ventolin 0.083% Nebulizer Soln -) 1 amp NEB Q4H PRN PRN Reason: SHORT OF BREATH/WHEEZING Albuterol/Ipratropium (Duoneb -) 1 amp NEB TIDR JOSE ELIAS Last Admin: 08/14/17 06:29 Dose: 1 amp Amlodipine Besylate (Norvasc -) 5 mg PO DAILY JOSE ELIAS Last Admin: 08/14/17 10:32 Dose: Not Given Artificial Tears (Artificial Tears) 1 drop OU Q6H PRN PRN Reason: DRY EYES Last Admin: 08/12/17 09:43 Dose: 1 drop Ascorbic Acid (Vitamin C -) 500 mg PO DAILY JOSE ELIAS Last Admin: 08/14/17 10:32 Dose: 500 mg Aspirin (Asa -) 81 mg PO DAILY JOSE ELIAS Last Admin: 08/14/17 10:30 Dose: 81 mg Atorvastatin Calcium (Lipitor -) 40 mg PO HS JOSE ELIAS Last Admin: 08/13/17 21:20 Dose: 40 mg Bacitracin (Bacitracin -) 1 applic TP DAILY PRN PRN Reason: skin Last Admin: 08/12/17 09:41 Dose: 1 applic Furosemide (Lasix -) 40 mg PO DAILY JOSE ELIAS Last Admin: 08/14/17 10:32 Dose: 40 mg Gabapentin (Neurontin -) 300 mg PO TID JOSE ELIAS Last Admin: 08/14/17 06:18 Dose: 300 mg Guaifenesin (Diabetic Tussin Dm -) 10 ml PO Q4H PRN PRN Reason: COUGH Last Admin: 08/13/17 10:49 Dose: 10 ml CEFTRIAXONE 1 G/50 ML PREMIX (Ceftriaxone 1 Gm-D5w Bag) 50 mls @ 100 mls/hr IVPB DAILY [facility] Last Admin: 08/14/17 10:31 Dose: 100 mls/hr Insulin Aspart (Novolog Vial Sliding Scale -) 1 vial SQ ACHS [facility] PRN Reason: Protocol Last Admin: 08/14/17 06:18 Dose: Not Given Insulin Detemir (Levemir Vial) 35 units SQ HS [facility] Last Admin: 08/13/17 21:18 Dose: 35 unit Insulin Detemir (Levemir Vial) 15 units SQ AM [facility] Last Admin: 08/14/17 06:22 Dose: 15 unit Isosorbide Mononitrate (Imdur -) 30 mg PO DAILY [facility] Last Admin: 08/14/17 10:31 Dose: 30 mg Lactic Acid (Lac-Hydrin 12) 1 applic TP DAILY [facility] Last Admin: 08/14/17 10:31 Dose: 1 applic Pantoprazole Sodium (Protonix -) 40 mg PO BID [facility] Last Admin: 08/14/17 10:32 Dose: 40 mg Polyethylene Glycol (Miralax (For Daily Use) -) 17 gm PO DAILY [facility] Last Admin: 08/14/17 10:32 Dose: Not Given Prednisone (Deltasone -) 10 mg PO DAILY [facility] Last Admin: 08/14/17 10:31 Dose: 10 mg Ramipril (Altace -) 10 mg PO DAILY [facility] Last Admin: 08/14/17 10:30 Dose: 10 mg Sitagliptin Phosphate (Januvia -) 25 mg PO DAILY@0700 [facility] Last Admin: 08/14/17 06:20 Dose: 25 mg Tamsulosin HCl (Flomax -) 0.4 mg PO DAILY@0830 [facility] Last Admin: 08/14/17 10:30 Dose: 0.4 mg Ticagrelor (Brilinta) 60 mg PO BID [facility] Last Admin: 08/14/17 10:30 Dose: 60 mg Constitutional: Yes: NAD Neck: Yes: Trachea Midline Cardiovascular: Yes: Regular Rate and Rhythm, S1, S2 Respiratory: Yes: few scattered rhonchi, no wheeze Gastrointestinal: Yes: Normal Bowel Sounds, Soft Edema: Yes Neurological: Yes: Alert, Oriented Labs: Laboratory Results - last 24 hr 08/13/17 08/13/17 08/13/17 12:21 17:39 21:13 Sodium Potassium Chloride Carbon Dioxide Anion Gap BUN Creatinine POC Glucometer 175 251 281 Random Glucose Calcium 08/14/17 08/14/17 06:17 06:40 Sodium 140 Potassium 4.3 Chloride 104 Carbon Dioxide 28 Anion Gap 8 BUN 59 H Creatinine 1.3 H POC Glucometer 115 Random Glucose 93 D Calcium 8.5 IMP: Pneumonia UTI CAD LV Diastolic Dysfunction Acute on Chronic Renal Failure HTN DM - Would monitor off ABX after today as day7 of therapy and clinically improved - inhaled bronchodilators - Prednisone - O2 to keep Spo2 >90% - DVT prophylaxis - D/C planning Dr Atkins
--- NOTE | 2017-08-14 11:14 | PN ---
Progress Note (short form) - Note Progress Note: feels well no complaints Vital Signs Period Temp Pulse Resp BP Sys/Emerson Pulse Ox Last 24 Hr 97.3 F-97.9 F 56-69 18-20 99-127/44-55 96 cor-rrr lungs clear abd soft,nt ext venous stasis CBC, BMP 08/09/17 06:00 08/14/17 06:40 Microbiology 08/07/17 14:47 Blood - Peripheral Venous Blood Culture - Final NO GROWTH AFTER 5 DAYS INCUBATION 08/07/17 14:47 Blood - Peripheral Venous Blood Culture - Final NO GROWTH AFTER 5 DAYS INCUBATION 08/07/17 14:47 Urine - Urine - Catheterized Urine Culture - Final Escherichia Coli 08/08/17 13:00 Nasopharyngeal Swab Influenza Types A,B Antigen (NICK) - Final 08/08/17 13:00 Nasopharyngeal Swab - Final 08/08/17 13:00 Urine For Antigen Detection Legionella Antigen - Final 08/08/17 13:00 Urine For Antigen Detection Streptococcus pneumoniae Antigen (M - Final a/p pneumonia ecoli uti day #8 antibiotics will d/c ceftriaxone please call back if needed Problem List - Problems (1) Pneumonia Code(s): J18.9 - PNEUMONIA, UNSPECIFIED ORGANISM (2) UTI (urinary tract infection) Code(s): N39.0 - URINARY TRACT INFECTION, SITE NOT SPECIFIED Qualifiers: Urinary tract infection type: acute cystitis Hematuria presence: without hematuria Qualified Code(s): N30.00 - Acute cystitis without hematuria (3) Abdominal pain Code(s): R10.9 - UNSPECIFIED ABDOMINAL PAIN Qualifiers: Abdominal location: generalized Qualified Code(s): R10.84 - Generalized abdominal pain (4) CAROLYN (acute kidney injury) Code(s): N17.9 - ACUTE KIDNEY FAILURE, UNSPECIFIED
--- NOTE | 2017-08-14 12:50 | DS ---
Physical Examination Vital Signs: Vital Signs Temperature 97.9 F 08/14/17 06:00 Pulse Rate 59 L 08/14/17 06:00 Respiratory Rate 20 08/14/17 06:00 Blood Pressure 114/55 08/14/17 06:00 O2 Sat by Pulse Oximetry (%) 96 08/13/17 21:00 Constitutional: Yes: Calm Neck: Yes: Trachea Midline Cardiovascular: Yes: Regular Rate and Rhythm, S1, S2 Respiratory: Yes: CTA Bilaterally Gastrointestinal: Yes: Normal Bowel Sounds, Soft Neurological: Yes: Alert, Oriented Labs: CBC, BMP 08/09/17 06:00 08/14/17 06:40 Discharge Summary Reason For Visit: ACUTE KIDNEY INJ/UTI/SEPSIS Current Active Problems CAROLYN (acute kidney injury) (Acute) CKD (chronic kidney disease) (Acute) Dyspnea (Acute) Pneumonia (Acute) Retention of urine (Acute) Type 2 diabetes mellitus with diabetic chronic kidney disease (Acute) Type 2 diabetes mellitus with hyperosmolarity without nonketotic hyperglycemic- hyperosmolar coma ([facility]) (Acute) Hospital Course: PCP: Tyra Lee - Admission Chief Complaint: Urosepsis History Source: Patient, Medical Record - Past Medical History HAND PASTER: Yes: Peripheral Neuropathy Cardiovascular: Yes: CAD, CHF, HTN, [place] (10/02/2015 resulting in a single stent insertion) Gastrointestinal: Yes: Diverticulosis, Peptic Ulcer Disease, Other (colon polyp) Hepatobiliary: Yes: Cholecystitis (prior cholecystitis s/p perc roxana tube from 11/2013-02/2014), Choledocholithiasis (resolved spontaneously) Renal/: Yes: Renal Failure (on prior admission- resolved) Heme/Onc: No: Anemia, B12 Deficiency, Bleeding Disorder, Cancer, Current Chemotherapy, Current Radiation Therapy, Hemochromatosis, Hypercoaguable State, Myeloproliferative Synd, Sickle Cell Disease, Sickle Cell Trait, Thrombocytopenia, Other Rheumatology: Yes: Gout Endocrine: Yes: Diabetes Mellitus (c/b peripheral neuropathy) Dermatology: Yes: 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, 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) - Past Surgical History Past Surgical History: Yes: Cholecystectomy (Lap Choly), Colonoscopy, Hysterectomy (TAHBSO), Tonsillectomy - Smoking History Smoking history: Never smoked Have you smoked in the past 12 months: No Aproximately how many cigarettes per day: 0 - Alcohol/Substance Use Hx Alcohol Use: No History of Substance Use: reports: None - Social History ADL: Support Services 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 History of Recent Travel: No in hospital: found to have uti and pna, had cavanaugh cath insertion for urinary retention started on flomax trial of voiding successful completed abx now ready for snf Condition: Improved - Instructions Diet, Activity, Other Instructions: take prednsione 5mg for two days then stop check BMP in one week renal follow up in one week Referrals: Fouzia Luis MD [Primary Care Provider] - [facility] - Home Medications Comprehensive Discharge Medication List: Ambulatory Orders Acetaminophen [Tylenol] 650 mg PO BID PRN 08/07/17 Amlodipine Besylate 5 mg PO DAILY 08/07/17 Ammonium Lactate [Skin Treatment] 1 applic TP DAILY 08/07/17 Ascorbic Acid [Vitamin C -] 500 mg PO DAILY 08/07/17 Aspirin [ASA -] 81 mg PO DAILY 08/07/17 Atorvastatin Ca [Lipitor] 40 mg PO DAILY 08/07/17 Azithromycin 500 mg PO ONCE 08/07/17 Bacitracin - [Bacitracin Topical Ointment -] 1 applic TP PRN PRN 08/07/17 Furosemide [Lasix -] 40 mg PO ASDIR 08/07/17 Gabapentin 300 mg PO TID 08/07/17 Guaifenesin 400 mg PO DAILY 08/07/17 Hydrocortisone Butyrate 15 gm TP BID 08/07/17 Hypromellose 0.5% Opth Soln [Artificial Tears] 1 drop OU QID PRN 08/07/17 Insulin Glargine,Hum.rec.anlog [Lantus (nf)] 35 units SQ HS 08/07/17 Isosorbide Mononitrate [Isosorbide Mononitrate ER] 30 mg PO DAILY 08/07/17 Loratadine [Claritin] 10 mg PO DAILY 08/07/17 Loteprednol Etab 0.5% Oph Susp [Lotemax (Nf)] 1 drop OS TID 08/07/17 Multivitamin [One Daily] 1 each PO DAILY 08/07/17 Pantoprazole Sodium 40 mg PO BID 08/07/17 Polyethylene Glycol 3350 [Miralax (For Daily Use) -] 17 gm PO DAILY 08/07/17 Potassium Chloride 20 meq PO DAILY 08/07/17 Ramipril 10 mg PO DAILY 08/07/17 Sennosides [Senna -] 1 tab PO ASDIR 08/07/17 Sitagliptin Phosphate [Januvia] 50 mg PO DAILY 08/07/17 Ticagrelor [Brilinta] 60 mg PO BID 08/07/17 Valacyclovir HCl [Valtrex -] 1,000 mg PO BID 08/07/17
--- NOTE | 2017-08-14 13:04 | PN ---
Progress Note, Physician History of Present Illness: Pt seen and examined at bedside. She is awake and alert. She tolerated the voiding trial. - Current Medication List Current Medications: Active Medications Acetaminophen (Tylenol -) 650 mg PO BID PRN PRN Reason: PAIN Last Admin: 08/09/17 03:40 Dose: 650 mg Amlodipine Besylate (Norvasc -) 5 mg PO DAILY [facility] Last Admin: 08/14/17 10:32 Dose: Not Given Artificial Tears (Artificial Tears) 1 drop OU Q6H PRN PRN Reason: DRY EYES Last Admin: 08/12/17 09:43 Dose: 1 drop Ascorbic Acid (Vitamin C -) 500 mg PO DAILY JOSE ELIAS Last Admin: 08/14/17 10:32 Dose: 500 mg Aspirin (Asa -) 81 mg PO DAILY [facility] Last Admin: 08/14/17 10:30 Dose: 81 mg Atorvastatin Calcium (Lipitor -) 40 mg PO HS [facility] Last Admin: 08/13/17 21:20 Dose: 40 mg Bacitracin (Bacitracin -) 1 applic TP DAILY PRN PRN Reason: skin Last Admin: 08/12/17 09:41 Dose: 1 applic Furosemide (Lasix -) 40 mg PO DAILY JOSE ELIAS Last Admin: 08/14/17 10:32 Dose: 40 mg Gabapentin (Neurontin -) 300 mg PO TID [facility] Last Admin: 08/14/17 06:18 Dose: 300 mg Guaifenesin (Diabetic Tussin Dm -) 10 ml PO Q4H PRN PRN Reason: COUGH Last Admin: 08/13/17 10:49 Dose: 10 ml Insulin Aspart (Novolog Vial Sliding Scale -) 1 vial SQ ACHS [facility] PRN Reason: Protocol Last Admin: 08/14/17 12:39 Dose: Not Given Insulin Detemir (Levemir Vial) 35 units SQ HS [facility] Last Admin: 08/13/17 21:18 Dose: 35 unit Insulin Detemir (Levemir Vial) 15 units SQ AM JOSE ELIAS Last Admin: 08/14/17 06:22 Dose: 15 unit Isosorbide Mononitrate (Imdur -) 30 mg PO DAILY JOSE ELIAS Last Admin: 08/14/17 10:31 Dose: 30 mg Lactic Acid (Lac-Hydrin 12) 1 applic TP DAILY [facility] Last Admin: 08/14/17 10:31 Dose: 1 applic Pantoprazole Sodium (Protonix -) 40 mg PO BID [facility] Last Admin: 08/14/17 10:32 Dose: 40 mg Polyethylene Glycol (Miralax (For Daily Use) -) 17 gm PO DAILY [facility] Last Admin: 08/14/17 10:32 Dose: Not Given Ramipril (Altace -) 10 mg PO DAILY [facility] Last Admin: 08/14/17 10:30 Dose: 10 mg Sitagliptin Phosphate (Januvia -) 25 mg PO DAILY@0700 [facility] Last Admin: 08/14/17 06:20 Dose: 25 mg Tamsulosin HCl (Flomax -) 0.4 mg PO DAILY@0830 [facility] Last Admin: 08/14/17 10:30 Dose: 0.4 mg Ticagrelor (Brilinta) 60 mg PO BID [facility] Last Admin: 08/14/17 10:30 Dose: 60 mg - Objective Vital Signs: Vital Signs Temperature 97.9 F 08/14/17 06:00 Pulse Rate 59 L 08/14/17 06:00 Respiratory Rate 20 08/14/17 06:00 Blood Pressure 114/55 08/14/17 06:00 O2 Sat by Pulse Oximetry (%) 96 08/13/17 21:00 Constitutional: Yes: Calm Eyes: Yes: Conjunctiva Clear HENT: Yes: Atraumatic Neck: Yes: Supple Cardiovascular: Yes: S1, S2 Respiratory: Yes: On Nasal O2 Gastrointestinal: Yes: Soft Genitourinary: Yes: WNL Extremities: Yes: WNL Edema: Yes Edema: LLE: 1+, RLE: 1+ Neurological: Yes: Oriented Psychiatric: Yes: Oriented Labs: CBC, BMP 08/09/17 06:00 08/14/17 06:40 INR, PTT INR 1.10 (0.82-1.09) 08/07/17 14:47 Problem List - Problems (1) CKD (chronic kidney disease) Code(s): N18.9 - CHRONIC KIDNEY DISEASE, UNSPECIFIED (2) CAROLYN (acute kidney injury) Code(s): N17.9 - ACUTE KIDNEY FAILURE, UNSPECIFIED (3) Dyspnea Code(s): R06.00 - DYSPNEA, UNSPECIFIED (4) Pneumonia Code(s): J18.9 - PNEUMONIA, UNSPECIFIED ORGANISM (5) Type 2 diabetes mellitus with diabetic chronic kidney disease Code(s): E11.22 - TYPE 2 DIABETES MELLITUS W DIABETIC CHRONIC KIDNEY DISEASE (6) CHF (congestive heart failure) Code(s): I50.9 - HEART FAILURE, UNSPECIFIED Qualifiers: Congestive heart failure type: diastolic Congestive heart failure chronicity: chronic Qualified Code(s): I50.32 - Chronic diastolic (congestive ) heart failure Assessment/Plan Current Medications Generic Name Dose Route Start Last Admin Trade Name Freq PRN Reason Stop Dose Admin Acetaminophen 650 mg 08/07/17 19:50 08/09/17 03:40 Tylenol - PO 650 mg BID PRN Administration PAIN Amlodipine Besylate 5 mg 08/08/17 10:00 08/14/17 10:32 Norvasc - PO Not Given DAILY JOSE ELIAS Artificial Tears 1 drop 08/07/17 19:50 08/12/17 09:43 Artificial Tears OU 1 drop Q6H PRN Administration DRY EYES Ascorbic Acid 500 mg 08/08/17 10:00 08/14/17 10:32 Vitamin C - PO 500 mg DAILY JOSE ELIAS Administration Aspirin 81 mg 08/08/17 10:00 08/14/17 10:30 Asa - PO 81 mg DAILY JOSE ELIAS Administration Atorvastatin Calcium 40 mg 08/07/17 22:00 08/13/17 21:20 Lipitor - PO 40 mg HS JOSE ELIAS Administration Bacitracin 1 applic 08/07/17 19:50 08/12/17 09:41 Bacitracin - TP 1 applic DAILY PRN Administration skin Furosemide 40 mg 08/10/17 15:45 08/14/17 10:32 Lasix - PO 40 mg DAILY JOSE ELIAS Administration Gabapentin 300 mg 08/07/17 22:00 08/14/17 06:18 Neurontin - PO 300 mg TID JOSE ELIAS Administration Guaifenesin 10 ml 08/09/17 09:50 08/13/17 10:49 Diabetic Tussin Dm - PO 10 ml Q4H PRN Administration COUGH Insulin Aspart 1 vial 08/07/17 22:00 08/14/17 12:39 Novolog Vial Sliding Scale - SQ Not Given ACHS [facility] Protocol Insulin Detemir 35 units 08/07/17 22:00 08/13/17 21:18 Levemir Vial SQ 35 unit HS JOSE ELIAS Administration Insulin Detemir 15 units 08/09/17 07:00 08/14/17 06:22 Levemir Vial SQ 15 unit AM JOSE ELIAS Administration Isosorbide Mononitrate 30 mg 08/08/17 10:00 08/14/17 10:31 Imdur - PO 30 mg DAILY JOSE ELIAS Administration Lactic Acid 1 applic 08/08/17 10:00 08/14/17 10:31 Lac-Hydrin 12 TP 1 applic DAILY JOSE ELIAS Administration Pantoprazole Sodium 40 mg 08/07/17 22:00 08/14/17 10:32 Protonix - PO 40 mg BID JOSE ELIAS Administration Polyethylene Glycol 17 gm 08/08/17 10:00 08/14/17 10:32 Miralax (For Daily Use) - PO Not Given DAILY JOSE ELIAS Ramipril 10 mg 08/08/17 10:00 08/14/17 10:30 Altace - PO 10 mg DAILY JOSE ELIAS Administration Sitagliptin Phosphate 25 mg 08/08/17 07:00 08/14/17 06:20 Januvia - PO 25 mg DAILY@0700 JOSE ELIAS Administration Tamsulosin HCl 0.4 mg 08/09/17 08:30 08/14/17 10:30 Flomax - PO 0.4 mg DAILY@0830 JOSE ELIAS Administration Ticagrelor 60 mg 08/07/17 22:00 08/14/17 10:30 Brilinta PO 60 mg BID JOSE ELIAS Administration Impression 1. CAROLYN 2. UTI 3. CAD 4. HTN 5. DM 6. CHF 7. hyperlipidemia 8. renal cyst 9. CKD 10. urinary retention Plan - can increase lasix to 40 mg po bid - will see pt in office - cont with flomax - will need to see urology as outpt for urodynamic studies - will follow Dr Hua
[2017-08-14 15:17] VITALS: BP 108/50; PULSE 73; TEMP 97.8
== END 2017-08-14 18:50 | DRG 682 ==
LOC: JER 14:38 → JERBED 23:25 → J8W 08-08 00:10
PROVIDERS: ADMIT Family Medicine; ATTEND Family Medicine
DX: N17.9 Acute kidney failure, unspecified (principal); J18.9 Pneumonia, unspecified organism; N39.0 Urinary tract infection, site not specified; I13.0 Hypertensive heart and chronic kidney disease with heart failure and stage 1 through stage 4 chronic kidney disease, or unspecified chronic kidney disease; I50.32 Chronic diastolic (congestive) heart failure; E11.22 Type 2 diabetes mellitus with diabetic chronic kidney disease; N18.9 Chronic kidney disease, unspecified; E11.42 Type 2 diabetes mellitus with diabetic polyneuropathy; I25.10 Atherosclerotic heart disease of native coronary artery without angina pectoris; B96.29 Other Escherichia coli [E. coli] as the cause of diseases classified elsewhere; E78.00 Pure hypercholesterolemia, unspecified; I25.2 Old myocardial infarction; K21.9 Gastro-esophageal reflux disease without esophagitis; J44.9 Chronic obstructive pulmonary disease, unspecified; D72.820 Lymphocytosis (symptomatic); R10.84 Generalized abdominal pain; K57.90 Diverticulosis of intestine, part unspecified, without perforation or abscess without bleeding; K27.9 Peptic ulcer, site unspecified, unspecified as acute or chronic, without hemorrhage or perforation; R33.8 Other retention of urine; M10.9 Gout, unspecified; N28.1 Cyst of kidney, acquired; K63.5 Polyp of colon; R74.9 Abnormal serum enzyme level, unspecified; Z86.718 Personal history of other venous thrombosis and embolism; Z85.828 Personal history of other malignant neoplasm of skin; Z95.5 Presence of coronary angioplasty implant and graft
CPT/HCPCS: 36415; 71010-TC; 74020-TC; 74176-TC; 80048; 80053; 81003; 81015; 82550; 82803; 83036; 83605; 83690; 83880; 84484; 85025; 85610; 85730; 86850; 86900; 86901; 87040; 87086; 87186; 87804; 87899; 93005; 93010; 94640; 97116-GP; 97161-GP; 99284-25

== ENCOUNTER 2017-09-15 14:46 | Inpatient (IN) | payer OTHER, BC ==
--- NOTE | 2017-09-15 15:03 | PDOC ---
Attending Attestation - Resident Resident Name: ChaYadygarcianadine - HPI HPI: 09/15/17 18:11 Pt presents to the ED complaining of generalized malaise, nausea and vomiting and epigastric abdominal pain. Also complaining of profuse watery diarrhea. Denies urinary complaints, but does complain of fever. History of recent admission for urosepsis. - Physicial Exam PE: 09/15/17 18:14 Agree with resident exam. Abdomen is diffusely tender with voluntary guarding on my exam, worse in the epigastrium. Patient is alert and oriented x3 in no acute distress. Patient is mildly hypoxic, but she has a history of chronic hypoxia and home O2 use. - Medical Decision Making 09/15/17 18:51 Pt presents to the ED with fever and tachycardia consistent with sepsis--will start sepsis protocol. Also has diffuse abdominal pain and tenderness--will check CT abdomen to rule out intraabdominal pathology. Will admit to medicine.
--- NOTE | 2017-09-15 15:04 | PDOC ---
History of Present Illness <Preeti Lizama - Last Filed: 09/15/17 22:05> - History of Present Illness Initial Comments: 82 year old female with PMH of HTN, high cholesterol, NIDDM, CAD (MD with stent 2 years prior on aspirin and Ticagrelor), CHF, and CKD presenting from assisted living facility with nausea, vomiting, diarrhea, and epigastric pain after lunch (3-4 hours prior to presentation). The abdominal pain is pressure like, diffuse upper abdominal pain (worse in epigastrium) non radiating, without ecaerbating or relieving factors. She describes the vomiting as black but not bloody and the diarrhea as dark brown but non-bloody. She was recently discharged from our facility on 08/14 after admission found to be siginicant for E. Coli (mcgowan-sensitive with exception to levaquin) and PNA. She was discharged to a rehab facility where she did well then sent to her assisted living facility two days prior. Denies any symptoms at her rehab facility and states she was doing well with PT there but since the nausea vomiting she has been back to using her wheel chair strictly. Denies fevers, chills, cough, chest pain, back pain, new paresthesias, new visual symptoms, or other sick symptoms. Her transmission assembler is Dr. Murguia. 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) Cardiac Disorders: (CAD - cath, stent, MD, n-stemi) COPD: Yes CHF: Yes Diabetes: Yes GI Disorders: Yes (gerd) HTN: Yes Hypercholesterolemia: Yes - Surgical History Cholecystectomy: Yes Orthopedic Surgery: Yes (right hip ORIF 12/2013) - Immunization History Immunization Up to Date: No - Suicide/Smoking/Psychosocial Hx Smoking Status: No Smoking History: Never smoked Have you smoked in the past 12 months: No Number of Cigarettes Smoked Daily: 0 Cigars Per Day: 0 Hx Alcohol Use: No Drug/Substance Use Hx: No Substance Use Type: None Hx Substance Use Treatment: No <Rome Eubanks - Last Filed: 09/15/17 22:57> - Past Medical History Allergies/Adverse Reactions: Allergies Allergy/AdvReac Type Severity Reaction Status Date / Time No Known Drug Allergies Allergy Verified 09/15/17 17:08 TOMATO SAUCE ONLY Allergy Uncoded 09/15/17 17:08 Home Medications: Ambulatory Orders Acetaminophen [Tylenol] 650 mg PO BID PRN 08/07/17 Amlodipine Besylate 5 mg PO DAILY 08/07/17 Ammonium Lactate [Skin Treatment] 1 applic TP DAILY 08/07/17 Ascorbic Acid [Vitamin C -] 500 mg PO DAILY 08/07/17 Aspirin [ASA -] 81 mg PO DAILY 08/07/17 Atorvastatin Ca [Lipitor] 40 mg PO DAILY 08/07/17 Bacitracin - [Bacitracin Topical Ointment -] 1 applic TP PRN PRN 08/07/17 Gabapentin 300 mg PO TID 08/07/17 Hypromellose 0.5% Opth Soln [Artificial Tears] 1 drop OU QID PRN 08/07/17 Insulin Glargine,Hum.rec.anlog [Lantus (10mL VIAL) -] 35 units SQ HS 08/07/17 Isosorbide Mononitrate [Isosorbide Mononitrate ER] 30 mg PO DAILY 08/07/17 Loratadine [Claritin] 10 mg PO DAILY 08/07/17 Multivitamin [One Daily] 1 each PO DAILY 08/07/17 Pantoprazole Sodium 40 mg PO BID 08/07/17 Polyethylene Glycol 3350 [Miralax 119 gm Btl -] 17 gm PO DAILY 08/07/17 Ramipril 10 mg PO DAILY 08/07/17 Ticagrelor [Brilinta] 60 mg PO BID 08/07/17 Furosemide [Lasix -] 40 mg PO BID #14 tablet MDD 2 08/14/17 Insulin (Levemir) [Levemir Vial] 15 units SQ AM ml 08/14/17 Prednisone [Deltasone -] 2.5 mg PO DAILY #7 tablet MDD 2 08/14/17 Sitagliptin Phosphate [Januvia -] 25 mg PO DAILY@0700 tab 08/14/17 Tamsulosin HCl [Flomax -] 0.4 mg PO DAILY@0830 #30 cap.er.24h MDD 1 08/14/17 Review of Systems - Review of Systems Constitutional: Yes: Chills, Loss of Appetite, Weakness. No: Fever HEENTM: Yes: Other (Has occasional floaters). No: Blurred Vision Respiratory: Yes: Shortness of Breath (per her baseline). No: Cough, Productive cough Cardiac (ROS): No: Chest Pain, Irregular Heart Rate, Lightheadedness, Palpitations, Syncope, Chest Tightness ABD/GI: Yes: Diarrhea, Nausea, Vomiting, Abdominal cramping. No: Blood Streaked Bowels, Constipated : No: Burning, Dysuria, Discharge, Hematuria, Incontinence, Urgency Musculoskeletal: No: Back Pain, Muscle Pain Integumentary: No: Bruising, Change in Color Neurological: Yes: Paresthesia (chronic bilateral paresthesias). No: Headache, Numbness <Rome Eubanks - Last Filed: 09/15/17 22:57> *Physical Exam - Vital Signs Last Vital Signs Temp Pulse Resp BP Pulse Ox 102.5 F H 90 18 116/78 95 09/15/17 18:00 09/15/17 18:50 09/15/17 18:50 09/15/17 18:50 09/15/17 18:50 <Preeti Lizama - Last Filed: 09/15/17 22:05> - Physical Exam General Appearance: Yes: Nourished, Appropriately Dressed. No: Apparent Distress HEENT: positive: EOMI, JA, Normal Voice Neck: positive: Trachea midline, Normal Thyroid, Supple. negative: Tender, Rigid Respiratory/Chest: negative: Chest Tender, Lungs Clear, Normal Breath Sounds ( Right mid and lower lung base crackles), Respiratory Distress, Accessory Muscle Use Cardiovascular: positive: Regular Rhythm, Regular Rate. negative: JVD, Murmur, Tachycardia Gastrointestinal/Abdominal: positive: Normal Bowel Sounds, Tender (epigastric and RUQ + LUQ tenderness. Epigastrium > than other areas) Musculoskeletal: positive: Normal Inspection. negative: CVA Tenderness Extremity: positive: Normal Capillary Refill, Normal Inspection. negative: Tender Integumentary: positive: Normal Color, Dry, Warm Neurologic: positive: Fully Oriented, Alert, Normal Mood/Affect, Normal Response <Rome Eubanks - Last Filed: 09/15/17 22:57> ED Treatment Course - LABORATORY CBC & Chemistry Diagram: 09/15/17 16:43 09/15/17 18:45 - ADDITIONAL ORDERS Additional order review: Laboratory Results 09/15/17 09/15/17 09/15/17 18:45 18:45 18:45 PT with INR INR PTT (Actin FS) VBG pH POC VBG pCO2 POC VBG pO2 Mixed VBG HCO3 Sodium 140 Potassium 4.1 Chloride 107 Carbon Dioxide 21 Anion Gap 12 BUN 42 H Creatinine 1.5 H Creat Clearance w eGFR 33.08 Random Glucose 185 H Lactic Acid Calcium 7.7 L Total Bilirubin 0.4 D AST 11 L ALT 20 Alkaline Phosphatase 125 H Creatine Kinase 38 Troponin I 0.02 B-Natriuretic Peptide 806.15 H Total Protein 6.0 L Albumin 3.1 L Urine Color Urine Appearance Urine pH Ur Specific [place] Urine Protein Urine Glucose (UA) Urine Ketones Urine Blood Urine Nitrite Urine Bilirubin Urine Urobilinogen Ur Leukocyte Esterase Blood Type Antibody Screen 09/15/17 09/15/17 09/15/17 16:45 16:45 16:45 PT with INR INR PTT (Actin FS) VBG pH 7.44 H POC VBG pCO2 33.1 L D POC VBG pO2 77.6 H D Mixed VBG HCO3 21.8 Sodium Potassium Chloride Carbon Dioxide Anion Gap BUN Creatinine Creat Clearance w eGFR Random Glucose Lactic Acid 1.9 Calcium Total Bilirubin AST ALT Alkaline Phosphatase Creatine Kinase Troponin I B-Natriuretic Peptide Total Protein Albumin Urine Color Urine Appearance Urine pH Ur Specific [place] Urine Protein Urine Glucose (UA) Urine Ketones Urine Blood Urine Nitrite Urine Bilirubin Urine Urobilinogen Ur Leukocyte Esterase Blood Type A POSITIVE Antibody Screen Negative 09/15/17 09/15/17 09/15/17 16:45 16:45 16:05 PT with INR 11.30 INR 1.00 PTT (Actin FS) 25.6 L VBG pH POC VBG pCO2 POC VBG pO2 Mixed VBG HCO3 Sodium Cancelled Potassium Cancelled Chloride Cancelled Carbon Dioxide Cancelled Anion Gap Cancelled BUN Cancelled Creatinine Cancelled Creat Clearance w eGFR Cancelled Random Glucose Cancelled Lactic Acid Calcium Cancelled Total Bilirubin Cancelled AST Cancelled ALT Cancelled Alkaline Phosphatase Cancelled Creatine Kinase Cancelled Troponin I Cancelled B-Natriuretic Peptide Cancelled Total Protein Cancelled Albumin Cancelled Urine Color Ltyellow Urine Appearance Clear Urine pH 5.0 Ur Specific [place] 1.014 Urine Protein Negative Urine Glucose (UA) Negative Urine Ketones Negative Urine Blood Negative Urine Nitrite Negative Urine Bilirubin Negative Urine Urobilinogen Negative Ur Leukocyte Esterase Negative Blood Type Antibody Screen 09/15/17 16:43 RBC 3.73 MCV 91.5 MCHC 33.2 RDW 15.7 H D MPV 9.1 Neutrophils % 93.5 H Lymphocytes % 2.8 L D Monocytes % 3.3 L Eosinophils % 0.1 Basophils % 0.3 - Medications Given in the ED: ED Medications Discontinued Medications Generic Name Dose Route Start Last Admin Trade Name Freq PRN Reason Stop Dose Admin Acetaminophen 650 mg 09/15/17 17:16 09/15/17 17:36 Tylenol - PO 09/15/17 17:17 Not Given ONCE ONE Acetaminophen 1,000 mg 09/15/17 17:31 09/15/17 17:36 Ofirmev Injection - IVPB 09/15/17 17:32 1,000 mg ONCE ONE Administration Fentanyl 25 mcg 09/15/17 16:41 09/15/17 17:03 Sublimaze Injection - IVPUSH 09/15/17 16:42 25 mcg ONCE ONE Administration Vancomycin HCl 1,000 mg/ 250 mls @ 250 mls/hr 09/15/17 18:39 09/15/17 18:46 Dextrose IVPB 09/15/17 19:38 250 mls/hr ONCE ONE Administration Protocol Piperacillin Sod/Tazobactam 100 mls @ 200 mls/hr 09/15/17 18:45 09/15/17 18: 00 Sod 4.5 gm/ Dextrose IVPB 09/15/17 19:14 200 mls/hr ONCE ONE Administration Ondansetron HCl 4 mg 09/15/17 16:52 09/15/17 17:03 Zofran Injection IVPUSH 09/15/17 16:53 4 mg ONCE ONE Administration Sodium Chloride 1,000 ml 09/15/17 20:11 09/15/17 20:34 Normal Saline - IV 09/15/17 20:12 1,000 ml ONCE ONE Administration <Preeti Lizama - Last Filed: 09/15/17 22:05> - LABORATORY CBC & Chemistry Diagram: 09/15/17 16:43 09/15/17 18:45 <Rome Eubanks - Last Filed: 09/15/17 22:57> Medical Decision Making - Medical Decision Making 09/15/17 22:05 EXAM: CT abdomen/pelvis with contrast HISTORY: Abdominal pain COMPARISON: None. FINDINGS: There is mild atelectasis in the lower lobes. There is a small hiatal hernia. Mild hepatosplenomegaly. The gallbladder is surgically absent. Fatty involution of the pancreas. The abdominal aorta is calcified. There is no AAA. There are vascular calcifications noted There is mild hazy stranding in the central mesentery most indicative of mild enteric panniculitis. There is a moderate amount of stool noted in the colon. There is no evidence of intestinal obstruction. There are uncomplicated right colon diverticuli. There is no obvious diverticulitis. The appendix is normal in size. There is an incidental small fat containing umbilical hernia. There are no incarcerated bowel loops. The urinary bladder is unremarkable. Read by: Russ Hinds MD <Preeti Lizama - Last Filed: 09/15/17 22:05> - Medical Decision Making 82 haresh old female with history of cardiac stents two years prior and recent admission for UTI and PNA presenting with fever on admission, borderline tachycardia, abdominal, nausea, and diarrhea over the past few hours. Concerning things for which she is at risk include MD, dissection, 09/15/17 18:50 Labs significant only for Cr 1.5. UA not showing infection. CXR may have infiltrate at bases but not entirely clear. Patient pending CT abdomen dry and given Vanc + Zosyn. Admitting service microblogged as Toby (PCP on record) did not respond. 09/15/17 21:[address] Wagner and she is OK with admission for medsurg obs and added on influenza swab. <Rome Eubanks - Last Filed: 09/15/17 22:57> *DC/Admit/Observation/Transfer - Attestations Scribe Attestion: 09/15/17 22:06 Documentation prepared by Preeti Lizama, acting as medical psychotherapist for Dasha Christian MD. <Preeti Lizama - Last Filed: 09/15/17 22:05> - Discharge Dispostion Admit: Yes <Rome Eubanks - Last Filed: 09/15/17 22:57> Diagnosis at time of Disposition: Abdominal pain Qualifiers: Abdominal location: epigastric Qualified Code(s): R10.13 - Epigastric pain - Discharge Dispostion Condition at time of disposition: Stable - Referrals Referrals: oFuzia Luis MD [Primary Care Provider] -
[2017-09-15] MEDS ORDERED: ONDANSETRON 4 MG/2 ML VIAL IVPUSH ONE (16:52)
[2017-09-15] MEDS ORDERED: ONDANSETRON 4 MG/2 ML VIAL ONE (16:53)
[2017-09-15] MEDS ORDERED: ACETAMINOPHEN 325 MG TABLET (FP) PO ONE (17:16)
[2017-09-15] MEDS ORDERED: ACETAMINOPHEN 1000 MG/100 ML VIAL (NON FORMULARY) IVPB ONE (17:31)
[2017-09-15] MEDS ORDERED: ACETAMINOPHEN INJECTION 100 ML IVPB ONE (17:31)
[2017-09-15 17:32] LABS: PROTHROMBIN TIME (PATIENT) 11.3 SEC (9.98-11.88)
[2017-09-15 17:35] LABS: ACTIVATED PTT 25.6 SECONDS (26.9-34.4)
[2017-09-15 17:49] LABS: BASO % 0.3 % (0-2.0); EOS % 0.1 % (0-4.5); HEMATOCRIT 34.1 % (32.4-45.2); HEMOGLOBIN 11.3 GM/dL (10.7-15.3); LYMPH % 2.8 % (8-40); MCH 30.4 pg (25.7-33.7); MCHC 33.2 g/dl (32.0-36.0); MEAN CELL VOLUME 91.5 fl (80-96); MEAN PLT VOLUME 9.1 fl (7.5-11.1); MONO % 3.3 % (3.8-10.2); NEUT % 93.5 % (42.8-82.8); PLATELET COUNT 172 K/MM3 (134-434); RBC 3.73 M/mm3 (3.60-5.2); RDW 15.7 % (11.6-15.6); WHITE BLOOD COUNT 8.5 K/mm3 (4.0-10.0)
[2017-09-15 17:53] LABS: VENOUS PC02 33.1 mmHg (38-52); VENOUS PH 7.44 (7.32-7.42)
[2017-09-15 17:54] LABS: VENOUS PO2 77.6 mmHg (28-48)
[2017-09-15] MEDS ORDERED: VANCOMYCIN 1 GRAM (PRE-DOCKED) 1,000 MG/250 ML BAG IVPB ONE ×2 (18:08→18:09)
[2017-09-15 18:09] LABS: URINE APPEARANCE CLEAR; URINE BILIRUBIN NEGATIVE (NEGATIVE); URINE BLOOD NEGATIVE (NEGATIVE); URINE COLOR LTYELLOW; URINE GLUCOSE (UA) NEGATIVE (NEGATIVE); URINE KETONE NEGATIVE (NEGATIVE); URINE LEUK ESTERASE NEGATIVE (NEGATIVE); URINE NITRITE NEGATIVE (NEGATIVE); URINE PROTEIN NEGATIVE (NEGATIVE); URINE UROBILINOGEN NEGATIVE mg/dL (0.2-1.0)
[2017-09-15] MEDS ORDERED: PIPERACILLIN/TAZOB 4.5 GM 4.5 GM/100 ML BAG IVPB ONE (18:10)
[2017-09-15] MEDS ORDERED: VANCOMYCIN 1,000 MG in DEXTROSE 5%-WATER - 250 ML IVPB ONE (18:39)
[2017-09-15] MEDS ORDERED: PIPERACILLIN/TAZOB 4.5 GM/100 ML PREMIX BAG IVPB ONE (18:40)
[2017-09-15] MEDS ORDERED: PIPERACILLIN/TAZOB 4.5 GM 4.5 GM in DEXTROSE 5%-WATER - 100 ML IVPB ONE (18:45)
[2017-09-15 19:37] LABS: ALBUMIN 3.1 g/dl (3.4-5.0); ALK PHOS 125 U/L (45-117); ANION GAP 12 (8-16); BILIRUBIN,TOTAL 0.4 mg/dL (0.2-1.0); BLOOD UREA NITROGEN 42 mg/dL (7-18); CALCIUM 7.7 mg/dL (8.5-10.1); CHLORIDE 107 mmol/L (98-107); CO2 21 mmol/L (21-32); CREATININE 1.5 mg/dL (0.55-1.02); GLUCOSE,RANDOM 185 mg/dL (74-106); POTASSIUM 4.1 mmol/L (3.5-5.1); SGOT/AST 11 U/L (15-37); SGPT/ALT 20 U/L (12-78); SODIUM 140 mmol/L (136-145)
[2017-09-15] MEDS ORDERED: SODIUM CHLORIDE 0.9% 500 ML INFUS.BAG IV ONE (20:11)
--- NOTE | 2017-09-15 23:02 | HP ---
CHIEF COMPLAINT: Epigastric Pain, Vomiting, Diarrhea PCP: Dr Lee HISTORY OF PRESENT ILLNESS: This is a 82 y/o woman with a past medical history of CAD, DE (stent), CHF, DM, PVD, Diverticulosis, Renal Failure. Who presents to the ED from [facility] with epigastric pain, vomiting and watery diarrhea after eating lunch. Patient describes the pain as pressure-like diffuse non-radiating. She reports vomiting undigested food, then yellow bile. Patient denies fever, chills , cough, SOB, CP, palpitations, constipation, melena, hematochezia, dysuria. On last admission 07/2017 E Coli, PNA ER course was notable for: (1) T Max 102.5~100.7 (2) Chest Xray- central congestive changes, no infiltrates, no pneumothorax (3) CTAP- moderate retained stool colon, small hiatal hernia, enteric panniculitis, no SBO Recent Travel: None PAST MEDICAL HISTORY: See HPI PAST SURGICAL HISTORY: Cholecystectomy Colonoscopy Hysterectomy Tonsillectomy Social History: Smoking: Never Alcohol: None Drugs: None Family History: Diabetes- Sister ( CLOUD Rt Cirrhosis) Cardiac- Father age 33 [place], Brother after CABG Ovarian Ca- Mother ( age 57) Allergies No Known Drug Allergies Allergy (Verified 09/15/17 17:08) TOMATO SAUCE ONLY Allergy (Uncoded 09/15/17 17:08) HOME MEDICATIONS: Home Medications Medication Instructions Recorded Acetaminophen [Tylenol] 650 mg PO BID PRN 08/07/17 Amlodipine Besylate 5 mg PO DAILY 08/07/17 Ammonium Lactate [Skin Treatment] 1 applic TP DAILY 08/07/17 Ascorbic Acid [Vitamin C -] 500 mg PO DAILY 08/07/17 Aspirin [ASA -] 81 mg PO DAILY 08/07/17 Atorvastatin Ca [Lipitor] 40 mg PO DAILY 08/07/17 Bacitracin - [Bacitracin Topical 1 applic TP PRN PRN 08/07/17 Ointment -] Gabapentin 300 mg PO TID 08/07/17 Hypromellose 0.5% Opth Soln 1 drop OU QID PRN 08/07/17 [Artificial Tears] Insulin Glargine,Hum.rec.anlog 35 units SQ HS 08/07/17 [Lantus (10mL VIAL) -] Isosorbide Mononitrate [Isosorbide 30 mg PO DAILY 08/07/17 Mononitrate ER] Loratadine [Claritin] 10 mg PO DAILY 08/07/17 Multivitamin [One Daily] 1 each PO DAILY 08/07/17 Pantoprazole Sodium 40 mg PO BID 08/07/17 Polyethylene Glycol 3350 [Miralax 17 gm PO DAILY 08/07/17 119 gm Btl -] Ramipril 10 mg PO DAILY 08/07/17 Ticagrelor [Brilinta] 60 mg PO BID 08/07/17 Furosemide [Lasix -] 40 mg PO BID #14 tablet MDD 2 08/14/17 Insulin (Levemir) [Levemir Vial] 15 units SQ AM ml 08/14/17 Prednisone [Deltasone -] 2.5 mg PO DAILY #7 tablet MDD 2 08/14/17 Sitagliptin Phosphate [Januvia -] 25 mg PO DAILY@0700 tab 08/14/17 Tamsulosin HCl [Flomax -] 0.4 mg PO DAILY@0830 #30 08/14/17 cap.er.24h MDD 1 REVIEW OF SYSTEMS CONSTITUTIONAL: Absent: fever, chills, diaphoresis, generalized weakness, malaise, loss of appetite, weight change HEENT: Absent: rhinorrhea, nasal congestion, throat pain, throat swelling, difficulty swallowing, mouth swelling, ear pain, eye pain, visual changes CARDIOVASCULAR: Absent: chest pain, syncope, palpitations, irregular heart rate, lightheadedness , peripheral edema RESPIRATORY: Absent: cough, shortness of breath, dyspnea with exertion, orthopnea, wheezing, stridor, hemoptysis GASTROINTESTINAL: abdominal pain, nausea, vomiting, diarrhea Absent: abdominal distension, constipation, melena, hematochezia GENITOURINARY: Absent: dysuria, frequency, urgency, hesitancy, hematuria, flank pain, genital pain MUSCULOSKELETAL: Absent: myalgia, arthralgia, joint swelling, back pain, neck pain SKIN: Absent: rash, itching, pallor HEMATOLOGIC/IMMUNOLOGIC: Absent: easy bleeding, easy bruising, lymphadenopathy, frequent infections ENDOCRINE: Absent: unexplained weight gain, unexplained weight loss, heat intolerance, cold intolerance NEUROLOGIC: Absent: headache, focal weakness or paresthesias, dizziness, unsteady gait, seizure, mental status changes, bladder or bowel incontinence PSYCHIATRIC: Absent: anxiety, depression, suicidal or homicidal ideation, hallucinations. PHYSICAL EXAMINATION Vital Signs - 24 hr 09/15/17 09/15/17 09/15/17 14:50 16:05 18:00 Temperature 100.7 F H 102.5 F H Pulse Rate 94 H Pulse Rate [ Right Radial] Respiratory 18 Rate Blood Pressure 125/57 Blood Pressure [Right Arm] O2 Sat by Pulse 91 L 96 Oximetry (%) 09/15/17 18:50 Temperature Pulse Rate Pulse Rate [ 90 Right Radial] Respiratory 18 Rate Blood Pressure Blood Pressure 116/78 [Right Arm] O2 Sat by Pulse 95 Oximetry (%) GENERAL: Awake, alert, and fully oriented, in no acute distress. HEAD: Normal with no signs of trauma. EYES: Pupils equal, round and reactive to light, extraocular movements intact, sclera anicteric, conjunctiva clear. No lid lag. EARS, NOSE, THROAT: Ears normal, nares patent, oropharynx clear without exudates. Dry mucous membranes. NECK: Normal range of motion, supple without lymphadenopathy, JVD, or masses. LUNGS: Breath sounds equal, clear to auscultation bilaterally. No wheezes, and no crackles. No accessory muscle use. HEART: Regular rate and rhythm, normal S1 and S2 without murmur, rub or gallop. ABDOMEN: Soft, obese, Epigastric, RUQ, tender, distended, hyperactive bowel sounds, no guarding, no rebound, no masses. No hepatomegaly or splenomegaly. MUSCULOSKELETAL: Normal range of motion at all joints. No bony deformities or tenderness. No CVA tenderness. UPPER EXTREMITIES: 2+ pulses, warm, well-perfused. No cyanosis. No clubbing. No peripheral edema. LOWER EXTREMITIES: 2+ pulses, warm, well-perfused. No calf tenderness. No peripheral edema. NEUROLOGICAL: Cranial nerves II-XII intact. Normal speech. Gait not observed. PSYCHIATRIC: Cooperative. Good eye contact. Appropriate mood and affect. SKIN: Warm, dry, normal turgor, no rashes or lesions noted, normal capillary refill. Laboratory Results - last 24 hr 09/15/17 09/15/17 09/15/17 16:05 16:43 16:45 WBC 8.5 D RBC 3.73 Hgb 11.3 Hct 34.1 MCV 91.5 MCH 30.4 MCHC 33.2 RDW 15.7 H D Plt Count 172 MPV 9.1 Neutrophils % 93.5 H Lymphocytes % 2.8 L D Monocytes % 3.3 L Eosinophils % 0.1 Basophils % 0.3 PT with INR INR PTT (Actin FS) VBG pH POC VBG pCO2 POC VBG pO2 Mixed VBG HCO3 Sodium Cancelled Potassium Cancelled Chloride Cancelled Carbon Dioxide Cancelled Anion Gap Cancelled BUN Cancelled Creatinine Cancelled Creat Clearance w eGFR Cancelled Random Glucose Cancelled Lactic Acid Calcium Cancelled Total Bilirubin Cancelled AST Cancelled ALT Cancelled Alkaline Phosphatase Cancelled Creatine Kinase Cancelled Troponin I Cancelled B-Natriuretic Peptide Cancelled Total Protein Cancelled Albumin Cancelled Urine Color Ltyellow Urine Appearance Clear Urine pH 5.0 Ur Specific [place] 1.014 Urine Protein Negative Urine Glucose (UA) Negative Urine Ketones Negative Urine Blood Negative Urine Nitrite Negative Urine Bilirubin Negative Urine Urobilinogen Negative Ur Leukocyte Esterase Negative Blood Type Antibody Screen 09/15/17 09/15/17 09/15/17 16:45 16:45 16:45 WBC RBC Hgb Hct MCV MCH MCHC RDW Plt Count MPV Neutrophils % Lymphocytes % Monocytes % Eosinophils % Basophils % PT with INR 11.30 INR 1.00 PTT (Actin FS) 25.6 L VBG pH POC VBG pCO2 POC VBG pO2 Mixed VBG HCO3 Sodium Potassium Chloride Carbon Dioxide Anion Gap BUN Creatinine Creat Clearance w eGFR Random Glucose Lactic Acid 1.9 Calcium Total Bilirubin AST ALT Alkaline Phosphatase Creatine Kinase Troponin I B-Natriuretic Peptide Total Protein Albumin Urine Color Urine Appearance Urine pH Ur Specific [place] Urine Protein Urine Glucose (UA) Urine Ketones Urine Blood Urine Nitrite Urine Bilirubin Urine Urobilinogen Ur Leukocyte Esterase Blood Type A POSITIVE Antibody Screen Negative 09/15/17 09/15/17 09/15/17 16:45 18:45 18:45 WBC RBC Hgb Hct MCV MCH MCHC RDW Plt Count MPV Neutrophils % Lymphocytes % Monocytes % Eosinophils % Basophils % PT with INR INR PTT (Actin FS) VBG pH 7.44 H POC VBG pCO2 33.1 L D POC VBG pO2 77.6 H D Mixed VBG HCO3 21.8 Sodium 140 Potassium 4.1 Chloride 107 Carbon Dioxide 21 Anion Gap 12 BUN 42 H Creatinine 1.5 H Creat Clearance w eGFR 33.08 Random Glucose 185 H Lactic Acid Calcium 7.7 L Total Bilirubin 0.4 D AST 11 L ALT 20 Alkaline Phosphatase 125 H Creatine Kinase 38 Troponin I 0.02 B-Natriuretic Peptide Total Protein 6.0 L Albumin 3.1 L Urine Color Urine Appearance Urine pH Ur Specific [place] Urine Protein Urine Glucose (UA) Urine Ketones Urine Blood Urine Nitrite Urine Bilirubin Urine Urobilinogen Ur Leukocyte Esterase Blood Type Antibody Screen 09/15/17 18:45 WBC RBC Hgb Hct MCV MCH MCHC RDW Plt Count MPV Neutrophils % Lymphocytes % Monocytes % Eosinophils % Basophils % PT with INR INR PTT (Actin FS) VBG pH POC VBG pCO2 POC VBG pO2 Mixed VBG HCO3 Sodium Potassium Chloride Carbon Dioxide Anion Gap BUN Creatinine Creat Clearance w eGFR Random Glucose Lactic Acid Calcium Total Bilirubin AST ALT Alkaline Phosphatase Creatine Kinase Troponin I B-Natriuretic Peptide 806.15 H Total Protein Albumin Urine Color Urine Appearance Urine pH Ur Specific [place] Urine Protein Urine Glucose (UA) Urine Ketones Urine Blood Urine Nitrite Urine Bilirubin Urine Urobilinogen Ur Leukocyte Esterase Blood Type Antibody Screen ASSESSMENT/PLAN: This is a 82 y/o PMHx of: CAD, DE x2, (stent x1), DM, PUD, Diverticulosis, Renal Failure. Placed on Observation for Fever of Unknown Origin, Abdominal Pain. Plan: ID 1. Fever of Unknown Origin - Hx Ecoli PNA on last admission - T Max 102.5 - Blood Cultures- pending - Urine Culture-pending - Chest Xray report- central congestive changes, no infiltrates, however on image increased patchy density in RML ?PNA - No leukocytosis, +L- shift, UA- negative, LA 1.9 - Influenza Swab-negative - Zosyn, Vancomycin given in ED - Will continue empiric therapy - Appreciate ID Consult - Monitor CBC GI 2. Abdominal Pain PUD hx Diverticulosis - Likely gastritis - CTAP- reviewed - NPO, trial clear in am - Consider GI Consult - BMP in am Card 3. CAD HTN CHF DE 2016 - s/p stent - patient denies CP or SOB - Trop I neg - EKG- NSR - Continue home meds with parameters Endo 4. DM type II - BGMs - ISS when meals resumed - Monitor renal function Nephrology 5. CKD Cr 1.5 at baseline 6. FEN - NPO advance to clear as tolerated - replete lytes prn 7. DVT prophylaxis - OOB - SCDs - consider AC if LOS > 48hrs Code Status: Full Code, HCP- Abdoul Fink ([phone]) Dispo: Observation Visit type - Emergency Visit Emergency Visit: Yes ED Registration Date: 09/15/17 Care time: The patient presented to the Emergency Department on the above date and was hospitalized for further evaluation of their emergent condition. - New Patient This patient is new to me today: Yes Date on this admission: 09/15/17 - Critical Care Critical Care patient: No
[2017-09-15] MEDS ORDERED: ACETAMINOPHEN 325 MG TABLET (FP) PO PRN (23:33)
[2017-09-16] MEDS ORDERED: ARTIFICIAL TEARS (POLYVINYL ALCOHOL 1.4%) OPTH DROPS OU PRN (08:48)
[2017-09-16] MEDS ORDERED: VANCOMYCIN 1,000 MG in DEXTROSE 5%-WATER - 250 ML IVPB ONE (10:00)
[2017-09-16] MEDS ORDERED: PIPERACILLIN/TAZOB 3.375 GM 3.375 GM in DEXTROSE 5%-WATER - 100 ML IVPB SCH (10:00)
[2017-09-16 10:08] LABS: BASO % 0.2 % (0-2.0); EOS % 1.6 % (0-4.5); HEMATOCRIT 30.6 % (32.4-45.2); HEMOGLOBIN 9.8 GM/dL (10.7-15.3); LYMPH % 8.5 % (8-40); MCH 29.6 pg (25.7-33.7); MCHC 32.1 g/dl (32.0-36.0); MEAN CELL VOLUME 92.3 fl (80-96); MONO % 10.3 % (3.8-10.2); NEUT % 79.4 % (42.8-82.8); PLATELET COUNT 138 K/MM3 (134-434); RBC 3.32 M/mm3 (3.60-5.2); WHITE BLOOD COUNT 4.7 K/mm3 (4.0-10.0)
[2017-09-16 10:38] LABS: ANION GAP 7 (8-16); BLOOD UREA NITROGEN 40 mg/dL (7-18); CALCIUM 7.6 mg/dL (8.5-10.1); CHLORIDE 111 mmol/L (98-107); CO2 25 mmol/L (21-32); CREATININE 1.3 mg/dL (0.55-1.02); GLUCOSE,RANDOM 77 mg/dL (74-106); POTASSIUM 3.8 mmol/L (3.5-5.1); SODIUM 143 mmol/L (136-145)
[2017-09-16] MEDS: TAMSULOSIN HCL 0.4 MG CAP.ER.24H (FP) PO SCH (11:00)
[2017-09-16] MEDS: ASPIRIN 81 MG CHEWABLE TABLETS PO SCH (11:00)
[2017-09-16] MEDS: ISOSORBIDE MONONITRATE 30 MG TAB.SR.24H (FP) PO SCH (11:00)
[2017-09-16] MEDS: MULTIVITAMINS (DAILY MVI) TABLET (FP) PO SCH (11:00)
[2017-09-16] MEDS: PANTOPRAZOLE 40 MG TABLET (FP) PO SCH ×2 (11:00→22:24)
[2017-09-16] MEDS: LORATADINE 10 MG TABLET PO SCH (11:00)
[2017-09-16] MEDS: TICAGRELOR 60 MG TABLET PO SCH ×2 (11:01→23:16)
--- NOTE | 2017-09-16 12:56 | EKG ---
Test Reason : Blood Pressure : / mmHG Vent. Rate : 087 BPM Atrial Rate : 087 BPM P-R Int : 192 ms QRS Dur : 084 ms QT Int : 352 ms P-R-T Axes : 008 010 045 degrees QTc Int : 423 ms NORMAL SINUS RHYTHM LOW VOLTAGE QRS BORDERLINE ECG WHEN COMPARED WITH ECG OF 07-AUG-2017 15:08, NO SIGNIFICANT CHANGE WAS FOUND Confirmed by Stanislav Schreiber ([id number]) on 09/16/2017 12:56:08 PM Referred By: Confirmed By:Stanislav Schreiber
--- NOTE | 2017-09-16 13:19 | CON.ID ---
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 Place of : [facility] History of Recent Travel: No Home Medications - Allergies Allergies/Adverse Reactions: Allergies Allergy/AdvReac Type Severity Reaction Status Date / Time No Known Drug Allergies Allergy Verified 09/15/17 17:08 TOMATO SAUCE ONLY Allergy Uncoded 09/15/17 17:08 - Home Medications Home Medications: Ambulatory Orders Acetaminophen [Tylenol] 650 mg PO BID PRN 08/07/17 Amlodipine Besylate 5 mg PO DAILY 08/07/17 Ammonium Lactate [Skin Treatment] 1 applic TP DAILY 08/07/17 Ascorbic Acid [Vitamin C -] 500 mg PO DAILY 08/07/17 Aspirin [ASA -] 81 mg PO DAILY 08/07/17 Atorvastatin Ca [Lipitor] 40 mg PO DAILY 08/07/17 Bacitracin - [Bacitracin Topical Ointment -] 1 applic TP PRN PRN 08/07/17 Gabapentin 300 mg PO TID 08/07/17 Hypromellose 0.5% Opth Soln [Artificial Tears] 1 drop OU QID PRN 08/07/17 Insulin Glargine,Hum.rec.anlog [Lantus (10mL VIAL) -] 35 units SQ HS 08/07/17 Isosorbide Mononitrate [Isosorbide Mononitrate ER] 30 mg PO DAILY 08/07/17 Loratadine [Claritin] 10 mg PO DAILY 08/07/17 Multivitamin [One Daily] 1 each PO DAILY 08/07/17 Pantoprazole Sodium 40 mg PO BID 08/07/17 Polyethylene Glycol 3350 [Miralax 119 gm Btl -] 17 gm PO DAILY 08/07/17 Ramipril 10 mg PO DAILY 08/07/17 Ticagrelor [Brilinta] 60 mg PO BID 08/07/17 Furosemide [Lasix -] 40 mg PO BID #14 tablet MDD 2 08/14/17 Insulin (Levemir) [Levemir Vial] 15 units SQ AM ml 08/14/17 Prednisone [Deltasone -] 2.5 mg PO DAILY #7 tablet MDD 2 08/14/17 Sitagliptin Phosphate [Januvia -] 25 mg PO DAILY@0700 tab 08/14/17 Tamsulosin HCl [Flomax -] 0.4 mg PO DAILY@0830 #30 cap.er.24h MDD 1 08/14/17 Family Disease History - Family Disease History Family Disease History: Diabetes: Sister ( of CLOUD rt cirrhosis ), Heart Disease: Father ( at age 33 [address]), Brother ( after CABG), CA: Mother ( of Ovarian cancer at age 57), Other: Sister Review of Systems - Review of Systems Eyes: reports: No Symptoms HENT: reports: No Symptoms Neck: reports: No Symptoms Cardiovascular: reports: No Symptoms. denies: Chest Pain Respiratory: denies: Cough, SOB Genitourinary: reports: No Symptoms. denies: Burning Physical Exam Vital Signs: Vital Signs Temperature 98.3 F 09/16/17 03:17 Pulse Rate 82 09/16/17 03:17 Respiratory Rate 20 09/16/17 03:17 Blood Pressure 124/54 09/16/17 03:17 O2 Sat by Pulse Oximetry (%) 100 09/15/17 23:17 Constitutional: Yes: Well Nourished, No Distress, Calm Eyes: Yes: Conjunctiva Clear HENT: Yes: Atraumatic, Normocephalic Neck: Yes: Supple Cardiovascular: Yes: Regular Rate and Rhythm Respiratory: Yes: Regular, CTA Bilaterally Gastrointestinal: Yes: Normal Bowel Sounds, Soft. No: Tenderness Extremities: Yes: WNL Labs: CBC, BMP 09/16/17 09:50 09/16/17 09:50 ua negative Imaging - Results Chest X-ray: Report Reviewed, Image Reviewed Cat Scan: Pending Problem List - Problems (1) Fever Code(s): R50.9 - FEVER, UNSPECIFIED (2) Nausea & vomiting Code(s): R11.2 - NAUSEA WITH VOMITING, UNSPECIFIED (3) Diarrhea Code(s): R19.7 - DIARRHEA, UNSPECIFIED Qualifiers: Diarrhea type: presumed infectious Qualified Code(s): R19.7 - Diarrhea, unspecified Assessment/Plan fever with transient vomiting and diarrhea received vanco/zosyn in ed prelim ct scan unremarkable - awaiting formal read symptoms have subsided would switch to rocephin f/u cultures , send stool w/u if diarrhea recurs suspect gastroenteritis or food poisoning
[2017-09-16] MEDS ORDERED: cefTRIAXone 1 GM/50 ML BAG (PRE-DOCKED) IVPB SCH (13:30)
[2017-09-16] MEDS: LACTATED RINGERS SOLUTION 1,000 ML IV SCH (14:20)
[2017-09-16] MEDS ORDERED: PT OWN MED DRAWER 7, Y5N ONE ×2 (14:45→22:08)
[2017-09-16] MEDS: GABAPENTIN 300 MG CAPSULE (FP) PO SCH ×2 (15:13→22:24)
[2017-09-16] MEDS: amLODIPine BESYLATE 5 MG TABLET (FP) PO SCH ×2 (15:15→17:58)
[2017-09-16] MEDS: FUROSEMIDE 40 MG TABLET (FP) PO SCH (17:57)
[2017-09-16] MEDS ORDERED: CEFTRIAXONE 1 GM/50 ML PREMIX IVPB SCH (18:20)
[2017-09-16] MEDS: CEFTRIAXONE 1 GM/50 ML PREMIX IVPB SCH (18:40)
[2017-09-16 20:10] VITALS: BMI 36.3
[2017-09-16] MEDS ORDERED: LACTATED RINGERS SOLUTION 1,000 ML IV SCH (20:30)
--- NOTE | 2017-09-16 21:27 | PN ---
Progress Note, Physician Chief Complaint: abdominal pain, nausea, vomiting - Current Medication List Current Medications: Active Medications Acetaminophen (Tylenol -) 650 mg PO Q6H PRN PRN Reason: FEVER Amlodipine Besylate (Norvasc -) 5 mg PO DAILY [facility] Last Admin: 09/16/17 17:58 Dose: 5 mg Artificial Tears (Artificial Tears) 1 drop OU QID PRN PRN Reason: DRY EYES Aspirin (Asa -) 81 mg PO DAILY [facility] Last Admin: 09/16/17 11:00 Dose: 81 mg Atorvastatin Calcium (Lipitor -) 40 mg PO HS [facility] Furosemide (Lasix -) 40 mg PO DAILY [facility] Last Admin: 09/16/17 17:57 Dose: 40 mg Gabapentin (Neurontin -) 300 mg PO TID [facility] Last Admin: 09/16/17 15:13 Dose: 300 mg Lactated Ringer's (Lactated Ringers Solution) 1,000 mls @ 50 mls/hr IV ASDIR [facility] Last Admin: 09/16/17 14:20 Dose: 50 mls/hr Isosorbide Mononitrate (Imdur -) 30 mg PO DAILY [facility] Last Admin: 09/16/17 11:00 Dose: Not Given Loratadine (Claritin -) 10 mg PO DAILY [facility] Last Admin: 09/16/17 11:00 Dose: 10 mg Multivitamins/Minerals/Vitamin C (Tab-A-Vit -) 1 tab PO DAILY [facility] Last Admin: 09/16/17 11:00 Dose: 1 tab Pantoprazole Sodium (Protonix -) 40 mg PO BID [facility] Last Admin: 09/16/17 11:00 Dose: 40 mg Tamsulosin HCl (Flomax -) 0.4 mg PO DAILY@0830 [facility] Last Admin: 09/16/17 11:00 Dose: 0.4 mg Ticagrelor (Brilinta) 60 mg PO BID [facility] Last Admin: 09/16/17 11:01 Dose: 60 mg - Objective Vital Signs: Vital Signs Temperature 98.5 F 09/16/17 14:02 Pulse Rate 68 09/16/17 14:02 Respiratory Rate 20 09/16/17 14:02 Blood Pressure 100/41 09/16/17 14:02 O2 Sat by Pulse Oximetry (%) 100 09/16/17 09:00 Constitutional: Yes: Well Nourished, No Distress, Calm Cardiovascular: Yes: Regular Rate and Rhythm Respiratory: Yes: Regular Gastrointestinal: Yes: Normal Bowel Sounds, Soft Musculoskeletal: Yes: WNL Extremities: Yes: WNL Edema: No Peripheral Pulses WNL: Yes Neurological: Yes: Alert, Oriented Psychiatric: Yes: Alert, Oriented Labs: CBC, BMP 09/16/17 09:50 09/16/17 09:50 INR, PTT INR 1.00 (0.82-1.09) 09/15/17 16:45 Problem List - Problems (1) Abdominal pain Assessment/Plan: -no pain, N/V at this time Code(s): R10.9 - UNSPECIFIED ABDOMINAL PAIN Qualifiers: Abdominal location: epigastric Qualified Code(s): R10.13 - Epigastric pain (2) Fever Assessment/Plan: afebrile Code(s): R50.9 - FEVER, UNSPECIFIED (3) Diarrhea Assessment/Plan: resolved -was likely a viral etiology Code(s): R19.7 - DIARRHEA, UNSPECIFIED Qualifiers: Diarrhea type: presumed infectious Qualified Code(s): R19.7 - Diarrhea, unspecified (4) Anemia Assessment/Plan: -dilutional? -monitor trend -stool ob -check iron profile, b 12, folate, tsh, ft4 Code(s): D64.9 - ANEMIA, UNSPECIFIED Assessment/Plan see problem list
[2017-09-16] MEDS ORDERED: VANCOMYCIN 1,000 MG in DEXTROSE 5%-WATER - 250 ML IVPB SCH (22:00)
[2017-09-16] MEDS: ATORVASTATIN CA 40 MG TABLET (FP) PO SCH (22:24)
[2017-09-17] MEDS: GABAPENTIN 300 MG CAPSULE (FP) PO SCH ×3 (06:12→22:00)
[2017-09-17] MEDS: TAMSULOSIN HCL 0.4 MG CAP.ER.24H (FP) PO SCH ×2 (09:27→09:28)
[2017-09-17] MEDS ORDERED: PIPERACIL/TAZOB 3.375 GM 3.375 GM/50 ML PREMIX IVPB SCH (10:00)
[2017-09-17] MEDS ORDERED: PT OWN MED DRAWER 7, Y5N ONE (10:09)
[2017-09-17] MEDS: ISOSORBIDE MONONITRATE 30 MG TAB.SR.24H (FP) PO SCH (10:14)
[2017-09-17] MEDS: ASPIRIN 81 MG CHEWABLE TABLETS PO SCH (10:14)
[2017-09-17] MEDS: PANTOPRAZOLE 40 MG TABLET (FP) PO SCH ×2 (10:14→22:00)
[2017-09-17] MEDS: FUROSEMIDE 40 MG TABLET (FP) PO SCH (10:14)
[2017-09-17] MEDS: LORATADINE 10 MG TABLET PO SCH ×2 (10:15)
[2017-09-17] MEDS: amLODIPine BESYLATE 5 MG TABLET (FP) PO SCH (10:15)
[2017-09-17] MEDS: MULTIVITAMINS (DAILY MVI) TABLET (FP) PO SCH (10:15)
[2017-09-17 10:16] LABS: BASO % 0.3 % (0-2.0); EOS % 4.6 % (0-4.5); HEMATOCRIT 32.1 % (32.4-45.2); HEMOGLOBIN 10.4 GM/dL (10.7-15.3); LYMPH % 11.1 % (8-40); MCHC 32.5 g/dl (32.0-36.0); MEAN CELL VOLUME 92.4 fl (80-96); MEAN PLT VOLUME 9.5 fl (7.5-11.1); MONO % 11.6 % (3.8-10.2); NEUT % 72.4 % (42.8-82.8); PLATELET COUNT 144 K/MM3 (134-434); RBC 3.48 M/mm3 (3.60-5.2); WHITE BLOOD COUNT 4.6 K/mm3 (4.0-10.0)
[2017-09-17] MEDS: TICAGRELOR 60 MG TABLET PO SCH ×2 (10:16→22:01)
[2017-09-17] MEDS: CEFTRIAXONE 1 GM/50 ML PREMIX IVPB SCH (10:17)
[2017-09-17 10:37] LABS: ALBUMIN 2.9 g/dl (3.4-5.0); ALK PHOS 104 U/L (45-117); ANION GAP 7 (8-16); BILIRUBIN,TOTAL 0.4 mg/dL (0.2-1.0); BLOOD UREA NITROGEN 26 mg/dL (7-18); CALCIUM 8.2 mg/dL (8.5-10.1); CHLORIDE 109 mmol/L (98-107); CO2 28 mmol/L (21-32); CREATININE 1.1 mg/dL (0.55-1.02); GLUCOSE,RANDOM 122 mg/dL (74-106); POTASSIUM 3.5 mmol/L (3.5-5.1); SGOT/AST 46 U/L (15-37); SGPT/ALT 44 U/L (12-78); SODIUM 144 mmol/L (136-145); TOT PROT 5.6 g/dl (6.4-8.2)
--- NOTE | 2017-09-17 12:07 | PN ---
Progress Note (short form) - Note Progress Note: feels well diet advanced no vomiting no diarrhea Vital Signs Period Temp Pulse Resp BP Sys/Emerson Pulse Ox Last 24 Hr 98.5 F-99.1 F 65-71 20-20 100-128/41-54 100-100 cor-rrr lungs clear abd soft,nt ext no edema CBC, BMP 09/17/17 09:26 09/17/17 09:26 Microbiology 09/15/17 16:05 Urine - Urine Clean Catch Urine Culture - Final NO GROWTH OBTAINED 09/15/17 16:45 Blood - Peripheral Venous Blood Culture - Preliminary NO GROWTH OBTAINED AFTER 24 HOURS, INCUBATION TO CONTINUE FOR 4 DAYS. 09/15/17 16:45 Blood - Peripheral Venous Blood Culture - Preliminary NO GROWTH OBTAINED AFTER 24 HOURS, INCUBATION TO CONTINUE FOR 4 DAYS. 09/15/17 23:16 Nasopharyngeal Aspirate Influenza Types A,B Antigen (NICK) - Final 09/15/17 23:16 Nasopharyngeal Aspirate - Final a/p no stool culture sent, cdiff pending vomiting and diarrhea have resolved ?acute enteritis on ct scan on [facility] GI consult pending consider d/c antibiotics and observe- await GI input Problem List - Problems (1) Fever Code(s): R50.9 - FEVER, UNSPECIFIED (2) Nausea & vomiting Code(s): R11.2 - NAUSEA WITH VOMITING, UNSPECIFIED (3) Diarrhea Code(s): R19.7 - DIARRHEA, UNSPECIFIED Qualifiers: Diarrhea type: presumed infectious Qualified Code(s): R19.7 - Diarrhea, unspecified
--- NOTE | 2017-09-17 13:37 | PN ---
Progress Note, Physician Chief Complaint: patient feeling better today no nausea no abdominal pain no loose BM on iv abx - Current Medication List Current Medications: Active Medications Acetaminophen (Tylenol -) 650 mg PO Q6H PRN PRN Reason: FEVER Amlodipine Besylate (Norvasc -) 5 mg PO DAILY [facility] Last Admin: 09/17/17 10:15 Dose: 5 mg Artificial Tears (Artificial Tears) 1 drop OU QID PRN PRN Reason: DRY EYES Aspirin (Asa -) 81 mg PO DAILY [facility] Last Admin: 09/17/17 10:14 Dose: 81 mg Atorvastatin Calcium (Lipitor -) 40 mg PO HS [facility] Last Admin: 09/16/17 22:24 Dose: 40 mg Furosemide (Lasix -) 40 mg PO DAILY [facility] Last Admin: 09/17/17 10:14 Dose: 40 mg Gabapentin (Neurontin -) 300 mg PO TID [facility] Last Admin: 09/17/17 06:12 Dose: 300 mg Lactated Ringer's (Lactated Ringers Solution) 1,000 mls @ 50 mls/hr IV ASDIR [facility] Last Admin: 09/16/17 14:20 Dose: 50 mls/hr Isosorbide Mononitrate (Imdur -) 30 mg PO DAILY [facility] Last Admin: 09/17/17 10:14 Dose: 30 mg Loratadine (Claritin -) 10 mg PO DAILY [facility] Last Admin: 09/17/17 10:15 Dose: 10 mg Multivitamins/Minerals/Vitamin C (Tab-A-Vit -) 1 tab PO DAILY [facility] Last Admin: 09/17/17 10:15 Dose: 1 tab Pantoprazole Sodium (Protonix -) 40 mg PO BID [facility] Last Admin: 09/17/17 10:14 Dose: 40 mg Tamsulosin HCl (Flomax -) 0.4 mg PO DAILY@0830 [facility] Last Admin: 09/17/17 09:28 Dose: 0.4 mg Ticagrelor (Brilinta) 60 mg PO BID [facility] Last Admin: 09/17/17 10:16 Dose: 60 mg - Objective Vital Signs: Vital Signs Temperature 98.5 F 09/17/17 10:04 Pulse Rate 65 09/17/17 10:04 Respiratory Rate 20 09/17/17 10:04 Blood Pressure 120/53 09/17/17 10:04 O2 Sat by Pulse Oximetry (%) 100 09/16/17 23:00 Constitutional: Yes: Calm Neck: Yes: Trachea Midline Cardiovascular: Yes: Regular Rate and Rhythm, S1, S2 Respiratory: Yes: CTA Bilaterally Gastrointestinal: Yes: Normal Bowel Sounds, Soft Neurological: Yes: Alert, Oriented Labs: CBC, BMP 09/17/17 09:26 09/17/17 09:26 INR, PTT INR 1.00 (0.82-1.09) 09/15/17 16:45 Problem List - Problems (1) Abdominal pain Assessment/Plan: possible acute enteritis on ct scan tolerating diet on rocephin gi eval pending patient ate regular diet today Code(s): R10.9 - UNSPECIFIED ABDOMINAL PAIN Qualifiers: Abdominal location: epigastric Qualified Code(s): R10.13 - Epigastric pain (2) CHF (congestive heart failure) Assessment/Plan: on lasix dose Code(s): I50.9 - HEART FAILURE, UNSPECIFIED Qualifiers: Congestive heart failure type: diastolic Congestive heart failure chronicity: chronic Qualified Code(s): I50.32 - Chronic diastolic (congestive ) heart failure (3) CKD (chronic kidney disease) Assessment/Plan: cr is better 1.1 Code(s): N18.9 - CHRONIC KIDNEY DISEASE, UNSPECIFIED (4) CAD (coronary artery disease) Assessment/Plan: s/p stent asa,brilinta ,statin, imdur Code(s): I25.10 - ATHSCL HEART DISEASE OF [place] CORONARY ARTERY W/O ANG PCTRS Qualifiers: Coronary Disease-Associated Artery/Lesion type: unspecified vessel or lesion type [place] vs. transplanted heart: [place] heart Associated angina: with unstable angina Qualified Code(s): I25.110 - Atherosclerotic heart disease of [place] coronary artery with unstable angina pectoris Assessment/Plan spoke to the niece and explained situation awaiting GI eval possible [facility]
[2017-09-17] MEDS: LACTATED RINGERS SOLUTION 1,000 ML IV SCH (14:47)
--- NOTE | 2017-09-17 20:45 | CON.GI ---
Consult Consult Specialty:: GI Referred by:: Dr Shaylee Aguilar md - History of Present Illness History of Present Illness: This is a 82 y/o woman with a past medical history of CAD, AK (stent), CHF, DM, PVD, Diverticulosis, Renal Failure. Who presents to the ED from [facility] with epigastric pain, vomiting and watery diarrhea after eating lunch. Patient describes the pain as pressure-like diffuse non-radiating. She reports vomiting undigested food, then yellow bile. Patient denies fever, chills , cough, SOB, CP, palpitations, constipation, melena, hematochezia, dysuria. On last admission 07/2017 E Coli, PNA The abdominal pain, nausea,vonitng and fever has resolved. This evening complains of early satiety and feels food is not digesting. 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 [employer] History of Recent Travel: No Home Medications - Allergies Allergies/Adverse Reactions: Allergies Allergy/AdvReac Type Severity Reaction Status Date / Time No Known Drug Allergies Allergy Verified 09/15/17 17:08 TOMATO SAUCE ONLY Allergy Uncoded 09/15/17 17:08 - Home Medications Home Medications: Ambulatory Orders Acetaminophen [Tylenol] 650 mg PO BID PRN 08/07/17 Amlodipine Besylate 5 mg PO DAILY 08/07/17 Ammonium Lactate [Skin Treatment] 1 applic TP DAILY 08/07/17 Ascorbic Acid [Vitamin C -] 500 mg PO DAILY 08/07/17 Aspirin [ASA -] 81 mg PO DAILY 08/07/17 Atorvastatin Ca [Lipitor] 40 mg PO DAILY 08/07/17 Bacitracin - [Bacitracin Topical Ointment -] 1 applic TP PRN PRN 08/07/17 Gabapentin 300 mg PO TID 08/07/17 Hypromellose 0.5% Opth Soln [Artificial Tears] 1 drop OU QID PRN 08/07/17 Insulin Glargine,Hum.rec.anlog [Lantus (10mL VIAL) -] 35 units SQ HS 08/07/17 Isosorbide Mononitrate [Isosorbide Mononitrate ER] 30 mg PO DAILY 08/07/17 Loratadine [Claritin] 10 mg PO DAILY 08/07/17 Multivitamin [One Daily] 1 each PO DAILY 08/07/17 Pantoprazole Sodium 40 mg PO BID 08/07/17 Polyethylene Glycol 3350 [Miralax 119 gm Btl -] 17 gm PO DAILY 08/07/17 Ramipril 10 mg PO DAILY 08/07/17 Ticagrelor [Brilinta] 60 mg PO BID 08/07/17 Furosemide [Lasix -] 40 mg PO BID #14 tablet MDD 2 08/14/17 Insulin (Levemir) [Levemir Vial] 15 units SQ AM ml 08/14/17 Prednisone [Deltasone -] 2.5 mg PO DAILY #7 tablet MDD 2 08/14/17 Sitagliptin Phosphate [Januvia -] 25 mg PO DAILY@0700 tab 08/14/17 Tamsulosin HCl [Flomax -] 0.4 mg PO DAILY@0830 #30 cap.er.24h MDD 1 08/14/17 Family Disease History - Family Disease History Family Disease History: Diabetes: Sister ( of CLOUD rt cirrhosis ), Heart Disease: Father ( at age 33 with AK), Brother ( after CABG), CA: Mother ( of Ovarian cancer at age 57), Other: Sister Review of Systems - Review of Systems Gastrointestinal: reports: Dysphagia, Indigestion, Other (early satiety). denies: Abdominal Pain, Bloating, Constipation, Diarrhea Physical Exam-GI Vital Signs: Vital Signs Temperature 97.8 F 09/17/17 15:32 Pulse Rate 66 09/17/17 15:32 Respiratory Rate 20 09/17/17 15:32 Blood Pressure 113/49 09/17/17 15:32 O2 Sat by Pulse Oximetry (%) 96 09/17/17 10:30 Constitutional: Yes: Obese Eyes: Yes: Conjunctiva Clear HENT: Yes: Atraumatic Neck: Yes: Supple Cardiovascular: Yes: Regular Rate and Rhythm Respiratory: Yes: CTA Bilaterally ...Palpate: Yes: Soft, Tenderness, Epigastium. No: Firm/Rigid, Guarding, Mass, Pulsatile Mass, Splenomegaly Labs: CBC, BMP 09/17/17 09:26 09/17/17 09:26 INR, PTT INR 1.00 (0.82-1.09) 09/15/17 16:45 Home Medications Medication Instructions Recorded Acetaminophen [Tylenol] 650 mg PO BID PRN 08/07/17 Amlodipine Besylate 5 mg PO DAILY 08/07/17 Ammonium Lactate [Skin Treatment] 1 applic TP DAILY 08/07/17 Ascorbic Acid [Vitamin C -] 500 mg PO DAILY 08/07/17 Aspirin [ASA -] 81 mg PO DAILY 08/07/17 Atorvastatin Ca [Lipitor] 40 mg PO DAILY 08/07/17 Bacitracin - [Bacitracin Topical 1 applic TP PRN PRN 08/07/17 Ointment -] Gabapentin 300 mg PO TID 08/07/17 Hypromellose 0.5% Opth Soln 1 drop OU QID PRN 08/07/17 [Artificial Tears] Insulin Glargine,Hum.rec.anlog 35 units SQ HS 08/07/17 [Lantus (10mL VIAL) -] Isosorbide Mononitrate [Isosorbide 30 mg PO DAILY 08/07/17 Mononitrate ER] Loratadine [Claritin] 10 mg PO DAILY 08/07/17 Multivitamin [One Daily] 1 each PO DAILY 08/07/17 Pantoprazole Sodium 40 mg PO BID 08/07/17 Polyethylene Glycol 3350 [Miralax 17 gm PO DAILY 08/07/17 119 gm Btl -] Ramipril 10 mg PO DAILY 08/07/17 Ticagrelor [Brilinta] 60 mg PO BID 08/07/17 Furosemide [Lasix -] 40 mg PO BID #14 tablet MDD 2 08/14/17 Insulin (Levemir) [Levemir Vial] 15 units SQ AM ml 08/14/17 Prednisone [Deltasone -] 2.5 mg PO DAILY #7 tablet MDD 2 08/14/17 Sitagliptin Phosphate [Januvia -] 25 mg PO DAILY@0700 tab 08/14/17 Tamsulosin HCl [Flomax -] 0.4 mg PO DAILY@0830 #30 08/14/17 cap.er.24h MDD 1 Current Medications Generic Name Dose Route Start Last Admin Trade Name Freq PRN Reason Stop Dose Admin Acetaminophen 650 mg 09/15/17 23:33 Tylenol - PO Q6H PRN FEVER Amlodipine Besylate 5 mg 09/16/17 10:00 09/17/17 10:15 Norvasc - PO 5 mg DAILY JOSE ELIAS Administration Artificial Tears 1 drop 09/16/17 08:48 Artificial Tears OU QID PRN DRY EYES Aspirin 81 mg 09/16/17 10:00 09/17/17 10:14 Asa - PO 81 mg DAILY JOSE ELIAS Administration Atorvastatin Calcium 40 mg 09/16/17 22:00 09/16/17 22:24 Lipitor - PO 40 mg HS JOSE ELIAS Administration Furosemide 40 mg 09/16/17 10:00 09/17/17 10:14 Lasix - PO 40 mg DAILY JOSE ELIAS Administration Gabapentin 300 mg 09/16/17 14:00 09/17/17 14:43 Neurontin - PO 300 mg TID JOSE ELIAS Administration Lactated Ringer's 1,000 mls @ 50 mls/hr 09/16/17 14:18 09/17/17 14:47 Lactated Ringers Solution IV 50 mls/hr ASDIR JOSE ELIAS Administration Isosorbide Mononitrate 30 mg 09/16/17 10:00 09/17/17 10:14 Imdur - PO 30 mg DAILY JOSE ELIAS Administration Multivitamins/Minerals/Vitamin C 1 tab 09/16/17 10:00 09/17/17 10:15 Tab-A-Vit - PO 1 tab DAILY JOSE ELIAS Administration Pantoprazole Sodium 40 mg 09/16/17 10:00 09/17/17 10:14 Protonix - PO 40 mg BID JOSE ELIAS Administration Tamsulosin HCl 0.4 mg 09/16/17 09:30 09/17/17 09:28 Flomax - PO 0.4 mg DAILY@0830 JOSE ELIAS Administration Ticagrelor 60 mg 09/16/17 10:00 09/17/17 10:16 Brilinta PO 60 mg BID JOSE ELIAS Administration Problem List - Problems (1) Gastroparesis Assessment/Plan: assoicated with diabtes R> give Reglan 10mg x 1 dose then 5mg po 30 min ac x 4 weeks only Code(s): K31.84 - GASTROPARESIS (2) Anemia Assessment/Plan: associted with chronic aspirin use R> stool guaiac od x 3 will need EGD to r/o Peptic ulcer disease, will schedule as an outpatient t Code(s): D64.9 - ANEMIA, UNSPECIFIED
[2017-09-17] MEDS ORDERED: METOCLOPRAMIDE HCL INJECTION 10 MG/2 ML VIAL IVPB ONE (21:00)
[2017-09-17] MEDS: ATORVASTATIN CA 40 MG TABLET (FP) PO SCH (22:00)
[2017-09-18] MEDS: GABAPENTIN 300 MG CAPSULE (FP) PO SCH ×2 (06:25→15:39)
[2017-09-18] MEDS: METOCLOPRAMIDE HCL 10 MG TABLET (FP) PO SCH ×3 (06:26→17:20)
--- NOTE | 2017-09-18 10:59 | DS ---
Physical Examination Vital Signs: Vital Signs Temperature 98.6 F 09/18/17 09:38 Pulse Rate 63 09/18/17 09:38 Respiratory Rate 20 09/18/17 09:38 Blood Pressure 125/44 09/18/17 09:38 O2 Sat by Pulse Oximetry (%) 96 09/17/17 21:00 Constitutional: Yes: Calm Neck: Yes: Trachea Midline Cardiovascular: Yes: Regular Rate and Rhythm, S1, S2 Respiratory: Yes: CTA Bilaterally Gastrointestinal: Yes: Normal Bowel Sounds, Soft Neurological: Yes: Alert, Oriented Labs: CBC, BMP 09/17/17 09:26 09/17/17 09:26 Discharge Summary Reason For Visit: ABDOMINAL PAIN Current Active Problems Abdominal pain (Acute) Fever (Acute) Gastroparesis (Acute) Hospital Course: CHIEF COMPLAINT: Epigastric Pain, Vomiting, Diarrhea PCP: Dr Lee HISTORY OF PRESENT ILLNESS: This is a 82 y/o woman with a past medical history of CAD, [place] (stent), CHF, DM, PVD, Diverticulosis, Renal Failure. Who presents to the ED from [facility] with epigastric pain, vomiting and watery diarrhea after eating lunch. Patient describes the pain as pressure-like diffuse non-radiating. She reports vomiting undigested food, then yellow bile. Patient denies fever, chills , cough, SOB, CP, palpitations, constipation, melena, hematochezia, dysuria. 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 09/15/17 16:45 Blood - Peripheral Venous Blood Culture - Preliminary NO GROWTH OBTAINED AFTER 48 HOURS, INCUBATION TO CONTINUE FOR 3 DAYS. Condition: Stable - Instructions Diet, Activity, Other Instructions: take reglan three times a day prior to meals for four weeks Referrals: Fouzia Luis MD [Primary Care Provider] - Stephen Mata MD [Staff Physician] - (make appointment to schedule endoscopy) Disposition: HOME - Home Medications Comprehensive Discharge Medication List: Ambulatory Orders Acetaminophen [Tylenol] 650 mg PO BID PRN 08/07/17 Amlodipine Besylate 5 mg PO DAILY 08/07/17 Ammonium Lactate [Skin Treatment] 1 applic TP DAILY 08/07/17 Ascorbic Acid [Vitamin C -] 500 mg PO DAILY 08/07/17 Aspirin [ASA -] 81 mg PO DAILY 08/07/17 Atorvastatin Ca [Lipitor] 40 mg PO DAILY 08/07/17 Bacitracin - [Bacitracin Topical Ointment -] 1 applic TP PRN PRN 08/07/17 Gabapentin 300 mg PO TID 08/07/17 Hypromellose 0.5% Opth Soln [Artificial Tears] 1 drop OU QID PRN 08/07/17 Insulin Glargine,Hum.rec.anlog [Lantus (10mL VIAL) -] 35 units SQ HS 08/07/17 Isosorbide Mononitrate [Isosorbide Mononitrate ER] 30 mg PO DAILY 08/07/17 Loratadine [Claritin] 10 mg PO DAILY 08/07/17 Multivitamin [One Daily] 1 each PO DAILY 08/07/17 Pantoprazole Sodium 40 mg PO BID 08/07/17 Polyethylene Glycol 3350 [Miralax 119 gm Btl -] 17 gm PO DAILY 08/07/17 Ramipril 10 mg PO DAILY 08/07/17 Ticagrelor [Brilinta] 60 mg PO BID 08/07/17 Furosemide [Lasix -] 40 mg PO BID #14 tablet MDD 2 08/14/17 Insulin (Levemir) [Levemir Vial] 15 units SQ AM ml 08/14/17 Prednisone [Deltasone -] 2.5 mg PO DAILY #7 tablet MDD 2 08/14/17 Sitagliptin Phosphate [Januvia -] 25 mg PO DAILY@0700 tab 08/14/17 Tamsulosin HCl [Flomax -] 0.4 mg PO DAILY@0830 #30 cap.er.24h MDD 1 08/14/17
[2017-09-18] MEDS ORDERED: PT OWN MED DRAWER 7, Y5N ONE (11:00)
[2017-09-18] MEDS: TAMSULOSIN HCL 0.4 MG CAP.ER.24H (FP) PO SCH ×2 (11:09→15:38)
[2017-09-18] MEDS: ISOSORBIDE MONONITRATE 30 MG TAB.SR.24H (FP) PO SCH ×2 (11:10→15:39)
[2017-09-18] MEDS: PANTOPRAZOLE 40 MG TABLET (FP) PO SCH (11:10)
[2017-09-18] MEDS: amLODIPine BESYLATE 5 MG TABLET (FP) PO SCH ×2 (11:10→15:39)
[2017-09-18] MEDS: TICAGRELOR 60 MG TABLET PO SCH (11:10)
[2017-09-18] MEDS: FUROSEMIDE 40 MG TABLET (FP) PO SCH ×2 (11:10→15:39)
[2017-09-18] MEDS: MULTIVITAMINS (DAILY MVI) TABLET (FP) PO SCH ×2 (11:10→15:38)
[2017-09-18] MEDS: ASPIRIN 81 MG CHEWABLE TABLETS PO SCH ×2 (11:10→15:39)
[2017-09-18] MEDS: CEFTRIAXONE 1 GM/50 ML PREMIX IVPB SCH (11:11)
[2017-09-18 14:13] VITALS: BP 128/88; PULSE 78; TEMP 98.1
== END 2017-09-18 18:04 | disposition home or self-care (01) | DRG 74 ==
LOC: JER 14:46 → JERBED 22:48 → J5S 09-16 07:19 → OBSVTOIN 09-17 08:50
PROVIDERS: ADMIT Internal Medicine; ATTEND Family Medicine
DX: E11.43 Type 2 diabetes mellitus with diabetic autonomic (poly)neuropathy (principal); J98.11 Atelectasis; I13.0 Hypertensive heart and chronic kidney disease with heart failure and stage 1 through stage 4 chronic kidney disease, or unspecified chronic kidney disease; K31.84 Gastroparesis; D64.9 Anemia, unspecified; I25.10 Atherosclerotic heart disease of native coronary artery without angina pectoris; Z98.61 Coronary angioplasty status; E11.22 Type 2 diabetes mellitus with diabetic chronic kidney disease; N18.9 Chronic kidney disease, unspecified; I50.9 Heart failure, unspecified; R19.7 Diarrhea, unspecified
CPT/HCPCS: 36415; 71045-TC; 74176-TC; 80048; 80053; 81003; 82550; 82803; 83605; 83880; 84484; 85025; 85610; 85730; 86850; 86900; 86901; 87040; 87045; 87046; 87086; 87324; 87449; 87804; 93005; 93010; 99285-25; G0378

== ENCOUNTER 2018-12-01 04:29 | Emergency (ER) | payer OTHER ==
[2018-12-01 04:43] VITALS: BP 146/72; PULSE 81; TEMP 97.6; BMI 27.4
[2018-12-01] MEDS ORDERED: AMOX TR/POT CLAV 875MG/125MG TABLETS (FP) PO ONE (04:46)
[2018-12-01] MEDS ORDERED: DIPHTH,PERTUSS(ACELL),TET 0.5 ML DISP.SYRIN IM ONE ×2 (04:46→04:50)
[2018-12-01] MEDS ORDERED: AMOX TR/POT CLAV 875MG/125MG TABLETS (FP) ONE (04:50)
--- NOTE | 2018-12-01 04:56 | PDOC ---
History of Present Illness - General Chief Complaint: Laceration Stated Complaint: CUT RIGHT TOE Time Seen by Provider: 12/01/18 04:35 History Source: Patient Exam Limitations: No Limitations - History of Present Illness Initial Comments: 12/01/18 04:50 Patient is 83F with history of HTN, HLD, DM, CAD w/stent on aspirin, CHF, and CKD here today complaining of a laceration to her R toe. She states that she has neuropathy of her feet and cannot feel them at baseline. Patient states that she was going to the bathroom when she noticed her toe was bleeding. EMS reports that blood was only in bathroom, <100cc. Patient denies chest pain, shortness of breath, nausea, vomiting, fevers, chills. Patient endorses leg swelling and redness, at baseline that she gets chronic treatment from. Patient is coming from [facility]. Past History - Past Medical History Allergies/Adverse Reactions: Allergies Allergy/AdvReac Type Severity Reaction Status Date / Time No Known Drug Allergies Allergy Verified 12/01/18 04:42 TOMATO SAUCE ONLY Allergy Uncoded 12/01/18 04:42 Home Medications: Ambulatory Orders Acetaminophen [Tylenol] 650 mg PO BID PRN 08/07/17 Amlodipine Besylate 5 mg PO DAILY 08/07/17 Ammonium Lactate [Skin Treatment] 1 applic TP DAILY 08/07/17 Ascorbic Acid [Vitamin C -] 500 mg PO DAILY 08/07/17 Aspirin [ASA -] 81 mg PO DAILY 08/07/17 Atorvastatin Ca [Lipitor] 40 mg PO DAILY 08/07/17 Bacitracin - [Bacitracin Topical Ointment -] 1 applic TP PRN PRN 08/07/17 Gabapentin 300 mg PO TID 08/07/17 Hypromellose 0.5% Opth Soln [Artificial Tears] 1 drop OU QID PRN 08/07/17 Insulin Glargine,Hum.rec.anlog [Lantus (10mL VIAL) -] 35 units SQ HS 08/07/17 Isosorbide Mononitrate [Isosorbide Mononitrate ER] 30 mg PO DAILY 08/07/17 Loratadine [Claritin] 10 mg PO DAILY 08/07/17 Multivitamin [One Daily] 1 each PO DAILY 08/07/17 Pantoprazole Sodium 40 mg PO BID 08/07/17 Polyethylene Glycol 3350 [Miralax 119 gm Btl -] 17 gm PO DAILY 08/07/17 Ramipril 10 mg PO DAILY 08/07/17 Ticagrelor [Brilinta] 60 mg PO BID 08/07/17 Furosemide [Lasix -] 40 mg PO BID #14 tablet MDD 2 08/14/17 Insulin (Levemir) [Levemir Vial] 15 units SQ AM ml 08/14/17 Sitagliptin Phosphate [Januvia -] 25 mg PO DAILY@0700 tab 08/14/17 Tamsulosin HCl [Flomax -] 0.4 mg PO DAILY@0830 #30 cap.er.24h MDD 1 08/14/17 predniSONE [Deltasone -] 2.5 mg PO DAILY #7 tablet MDD 2 08/14/17 Amox-Tr/K Cl [Augmentin - 875Mg Tablet] 1 tab PO BID #20 tablet 12/01/18 Anemia: Yes Asthma: No 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) Cardiac Disorders: Yes (CAD - cath, stent, UT, n-stemi) CVA: No COPD: Yes CHF: Yes Dementia: No Diabetes: Yes GI Disorders: Yes (gerd) Disorders: No HTN: Yes Hypercholesterolemia: Yes Liver Disease: No Seizures: No Thyroid Disease: No - Surgical History Appendectomy: No Cardiac Surgery: Yes (stents) Cholecystectomy: Yes Lung Surgery: No Neurologic Surgery: No Orthopedic Surgery: Yes (right hip ORIF 12/2013) - Immunization History Immunization Up to Date: No - Suicide/Smoking/Psychosocial Hx Smoking Status: No Smoking History: Never smoked Have you smoked in the past 12 months: No Number of Cigarettes Smoked Daily: 0 Cigars Per Day: 0 Information on smoking cessation initiated: No Hx Alcohol Use: No Drug/Substance Use Hx: No Substance Use Type: None Hx Substance Use Treatment: No Review of Systems - Review of Systems Able to Perform ROS?: Yes Comments:: 12/01/18 04:54 GENERAL/CONSTITUTIONAL: No fever or chills. No weakness. HEAD, EYES, EARS, NOSE AND THROAT: No change in vision. No sore throat. CARDIOVASCULAR: No chest pain or shortness of breath RESPIRATORY: No cough, wheezing, or hemoptysis. GASTROINTESTINAL: No nausea, vomiting, diarrhea or constipation. GENITOURINARY: No dysuria, frequency, or change in urination. MUSCULOSKELETAL: +L great toe pain. No neck or back pain. SKIN: No rash NEUROLOGIC: No headache, vertigo, loss of consciousness, or change in strength/ sensation. HEMATOLOGIC/LYMPHATIC: No anemia, easy bleeding, or history of blood clots. ALLERGIC/IMMUNOLOGIC: No hives or skin allergy. *Physical Exam - Vital Signs Last Vital Signs Temp Pulse Resp BP Pulse Ox 97.6 F 81 18 146/72 97 12/01/18 04:42 12/01/18 04:42 12/01/18 04:42 12/01/18 04:42 12/01/18 04:42 - Physical Exam Comments: 12/01/18 04:55 GENERAL: Awake, alert, and fully oriented, in no acute distress R FOOT: Partially avulsed great toe nail, bleeding controlled, well perfused distal to injury, motor intact, no sensation HEAD: No signs of trauma, normocephalic, atraumatic EYES: PERRLA, EOMI, sclera anicteric, conjunctiva clear ENT: Auricles normal inspection, hearing grossly normal, nares patent, oropharynx clear without exudates. Moist mucosa NECK: Normal ROM, supple, no lymphadenopathy, JVD, or masses LUNGS: No distress, speaks full sentences, clear to auscultation bilaterally HEART: Regular rate and rhythm, normal S1 and S2, no murmurs, rubs or gallops, peripheral pulses normal and equal bilaterally. ABDOMEN: Soft, nontender, normoactive bowel sounds. No guarding, no rebound. No masses EXTREMITIES: Normal inspection, Normal range of motion, no edema. No clubbing or cyanosis. NEUROLOGICAL: Cranial nerves II through XII grossly intact. Normal speech, no focal sensorimotor deficits SKIN: Warm, Dry, normal turgor, no rashes or lesions noted. ED Treatment Course - RADIOLOGY Radiology Studies Ordered: Category Date Time Status TOE(S) LEFT [RAD] Stat Radiology 12/01/18 04:46 Ordered Medical Decision Making - Medical Decision Making 12/01/18 04:56 Patient is 83F with history of HTN, HLD, DM, CAD w/stent on aspirin, CHF, and CKD here today with partial toenail avulsion. At neurovascular baseline. Given patient's history of DM and neuropathy, will cover prophylactically with augmentin. Wound irrigated thoroughly with normal saline under pressure. X-ray ordered to evaluate for fracture. No signs or symptoms of significant anemia. X-ray shows no fracture. Will discharge back to assisted living facility. *DC/Admit/Observation/Transfer Diagnosis at time of Disposition: Injury of toenail - Discharge Dispostion Disposition: HOME Condition at time of disposition: Good Decision to Admit order: No - Prescriptions Prescriptions: Amox-Tr/K Cl [Augmentin - 875Mg Tablet] 1 tab PO BID #20 tablet - Referrals - Patient Instructions Printed Discharge Instructions: DI for Laceration Repair Additional Instructions: Please take augmentin 875mg BID for the next 10 days to prevent infection in your foot. Please return to the ED immediately if you have any new, worsening or concerning symptoms, especially spreading redness, pain and discharged push. Please follow up with your primary care physician this week. Please have your wound checked as previously planned. - Post Discharge Activity
--- NOTE | 2018-12-01 06:51 | PDOC ---
Attending Attestation - Resident Resident Name: Patrick Walton - ED Attending Attestation I have performed the following: I have examined & evaluated the patient, The case was reviewed & discussed with the resident, I agree w/resident's findings & plan - HPI HPI: 12/01/18 06:47 Pt banged her toe while walking to the bathroom; didn't notice and when she was seated on the toilet, she noticed the blood surrounding the right foot. Pt partially tore off her 1st toenail. She wants to go home. Pt has no complaints. - Physicial Exam PE: 12/01/18 06:48 Agree with resident exam - Medical Decision Making 12/01/18 06:48 XRAY done. Unclear if there is a small fx in the 1st toe. Pt's toe was dressed. She will follow the implement mechanic at the assisted living facility on . 12/01/18 20:58 Patient Name: CHARLA MEDINA THIS IS A PRELIMINARY REPORT FROM [facility] DATE OF SERVICE: 2018-12-01 05:00:17 IMAGES: 3 EXAM: X-RAY RIGHT GREAT TOE No acute fracture or dislocation. No radiopaque foreign body. Osteopenia. Vascular calcifications. THIS DOCUMENT HAS BEEN ELECTRONICALLY SIGNED
== END 2018-12-01 07:56 | disposition home or self-care (01) ==
LOC: JER 04:29
PROC: 3E0234Z Introduction of Serum, Toxoid and Vaccine into Muscle, Percutaneous Approach (ICD-10-PCS; principal; 2018-12-01)
DX: S91.211A Laceration without foreign body of right great toe with damage to nail, initial encounter (principal); X58.XXXA Exposure to other specified factors, initial encounter; Y93.89 Activity, other specified; Y92.121 Bathroom in nursing home as the place of occurrence of the external cause; Y99.8 Other external cause status; E11.42 Type 2 diabetes mellitus with diabetic polyneuropathy; Z79.4 Long term (current) use of insulin; I25.10 Atherosclerotic heart disease of native coronary artery without angina pectoris; I13.0 Hypertensive heart and chronic kidney disease with heart failure and stage 1 through stage 4 chronic kidney disease, or unspecified chronic kidney disease; N18.9 Chronic kidney disease, unspecified; I50.89 Other heart failure; Z95.5 Presence of coronary angioplasty implant and graft; D64.9 Anemia, unspecified; E78.00 Pure hypercholesterolemia, unspecified; Z85.828 Personal history of other malignant neoplasm of skin; I25.2 Old myocardial infarction; J44.9 Chronic obstructive pulmonary disease, unspecified
CPT/HCPCS: 73660-TC-FY; 90471; 90715; 99284-25

== ENCOUNTER 2018-12-05 14:59 | Inpatient (IN) | payer OTHER, BC ==
--- NOTE | 2018-12-05 15:09 | PDOC ---
History of Present Illness - General Stated Complaint: CHEST PAIN Time Seen by Provider: 12/05/18 15:09 History Source: Patient Exam Limitations: No Limitations - History of Present Illness Initial Comments: Pt is an 83 yo F, with PMH of HTN, HLD, DM, CAD/OH (x1 stent on brilinta and ASA ), CHF (preserved EF), and CKD, who is presenting via EMS from [facility], with complaints of substernal chest discomfort x2 days. Pt states the pain is intermittent, and mostly comes while she is pushing herself in her wheelchair. The pain radiates up towards her b/l jaws, and has been associated with nausea, but no vomiting or diaphoresis. The pt also currently complains of active discomfort in the ER while she is lying still. The pain lasts for about 2-3 minutes and then improves on its own. Pt has been compliant with all of her medications. Pt was recently in the ER on 12/01 after she stubbed her R big toe, and lost her R toenail, and was started on Augmentin BID x10 days. Pt also endorses b/l leg swelling, and recently increased pain in her b/l calves. PCP: Dr. Sanders ([facility] PCP) Cardiology: Dr. Adame Social: Pt denies any cigarette, alcohol, or drug use. Pt denies any recent travel or sick contacts. Surgical: stent placement Family: no relevant history. 12/05/18 16:50 Past History - Travel Traveled outside of the country in the last 30 days: No Close contact w/someone who was outside of country & ill: No - Past Medical History Allergies/Adverse Reactions: Allergies Allergy/AdvReac Type Severity Reaction Status Date / Time No Known Drug Allergies Allergy Verified 12/05/18 15:11 TOMATO SAUCE ONLY Allergy Uncoded 12/05/18 15:11 Home Medications: Ambulatory Orders Acetaminophen [Tylenol] 650 mg PO BID PRN 08/07/17 Amlodipine Besylate 5 mg PO DAILY 08/07/17 Ammonium Lactate [Skin Treatment] 1 applic TP DAILY 08/07/17 Ascorbic Acid [Vitamin C -] 500 mg PO DAILY 08/07/17 Aspirin [ASA -] 81 mg PO DAILY 08/07/17 Atorvastatin Ca [Lipitor] 40 mg PO DAILY 08/07/17 Bacitracin - [Bacitracin Topical Ointment -] 1 applic TP PRN PRN 08/07/17 Gabapentin 300 mg PO TID 08/07/17 Hypromellose 0.5% Opth Soln [Artificial Tears] 1 drop OU QID PRN 08/07/17 Insulin Glargine,Hum.rec.anlog [Lantus (10mL VIAL) -] 35 units SQ HS 08/07/17 Isosorbide Mononitrate [Isosorbide Mononitrate ER] 30 mg PO DAILY 08/07/17 Loratadine [Claritin] 10 mg PO DAILY 08/07/17 Multivitamin [One Daily] 1 each PO DAILY 08/07/17 Pantoprazole Sodium 40 mg PO BID 08/07/17 Polyethylene Glycol 3350 [Miralax 119 gm Btl -] 17 gm PO DAILY 08/07/17 Ramipril 10 mg PO DAILY 08/07/17 Ticagrelor [Brilinta] 60 mg PO BID 08/07/17 Furosemide [Lasix -] 40 mg PO BID #14 tablet MDD 2 08/14/17 Insulin (Levemir) [Levemir Vial] 15 units SQ AM ml 08/14/17 Sitagliptin Phosphate [Januvia -] 25 mg PO DAILY@0700 tab 08/14/17 Tamsulosin HCl [Flomax -] 0.4 mg PO DAILY@0830 #30 cap.er.24h MDD 1 08/14/17 predniSONE [Deltasone -] 2.5 mg PO DAILY #7 tablet MDD 2 08/14/17 Amox-Tr/K Cl [Augmentin - 875Mg Tablet] 1 tab PO BID #20 tablet 12/01/18 Anemia: Yes Asthma: No 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) Cardiac Disorders: Yes (CAD - cath, stent, [place], n-stemi) CVA: No COPD: Yes CHF: Yes Dementia: No Diabetes: Yes GI Disorders: Yes (gerd) Disorders: No HTN: Yes Hypercholesterolemia: Yes Liver Disease: No Seizures: No Thyroid Disease: No - Surgical History Appendectomy: No Cardiac Surgery: Yes (stents) Cholecystectomy: Yes Lung Surgery: No Neurologic Surgery: No Orthopedic Surgery: Yes (right hip ORIF 12/2013) - Immunization History Immunization Up to Date: No - Suicide/Smoking/Psychosocial Hx Smoking Status: No Smoking History: Never smoked Have you smoked in the past 12 months: No Number of Cigarettes Smoked Daily: 0 Cigars Per Day: 0 Hx Alcohol Use: No Drug/Substance Use Hx: No Substance Use Type: None Hx Substance Use Treatment: No Review of Systems - Review of Systems Able to Perform ROS?: Yes Is the patient limited Ukrainian proficient: No Constitutional: Yes: Weight Stable. No: Chills, Diaphoresis, Fever, Loss of Appetite, Malaise, Weakness HEENTM: No: Blurred Vision, Double Vision, Nose Pain, Nose Congestion, Throat Pain, Throat Swelling Respiratory: No: Cough, Orthopnea, Shortness of Breath, Wheezing, Productive cough, Hemoptysis Cardiac (ROS): Yes: See HPI, Chest Pain, Edema. No: Irregular Heart Rate, Lightheadedness, Palpitations, Syncope, Chest Tightness ABD/GI: No: Constipated, Diarrhea, Nausea, Poor Appetite, Poor Fluid Intake, Vomiting : No: Burning, Dysuria, Pain, Urgency Musculoskeletal: No: Back Pain, Joint Pain, Muscle Weakness Integumentary: No: Rash Neurological: No: Headache, Numbness, Weakness, Unsteady Gait, Dizziness Psychiatric: No: Sleep Pattern Change, Change in Appetite Endocrine: No: Increased Urine, Change in Weight Hematologic/Lymphatic: Yes: Anemia, Blood Clots (CAD/[place] (stent on brulinta and ASA)). No: Easy Bleeding, Easy Bruising All Other Systems: Reviewed and Negative *Physical Exam - Physical Exam Comments: Vitals stable, pt afebrile. Pt appears uncomfortable, holding the middle of her chest. Obese body habitus. PE showed pt alert and oriented x3. 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 Head normocephalic, atraumatic. Eyes PERRLA, EOMI. Oropharynx without erythema or exudates, no LAD b/l. No nasal congestion, hearing intact. Clear heart sounds, S1/S2, no JVD, or heart murmur. No reproducible chest wall tenderness. B/l LE edema and calf tightness/tenderness, pitting edema up to mid shins. Clear lung sounds, no respiratory distress, wheezes, crackles, or accessory muscle use. No abdominal or CVA tenderness to palpation, no rebound, no guarding. Abdomen soft, non-distended, and with normoactive bowel sounds. Skin without jaundice or rash. Missing R large to toenail (trauma to R toe from 12/01/2018), bleeding controlled. 12/05/18 16:40 Heart Score/ECG Review - History History: Moderately suspicious - Electrocardiogram EKG: Normal - Age Age: >/= 65 - Risk Factors Risk Factors Heart Score: Yes Hx Hypercholesterolemia, Yes Hx Hypertension, Yes Hx Diabetes, Yes Hx Obesity Based on the list above the patient has:: >/=3 risk factors or Hx atherosclerotic disease - Troponin Troponin: </= normal limit - Score Heart Score - Total: 5 ED Treatment Course - LABORATORY CBC & Chemistry Diagram: 12/05/18 15:40 12/05/18 15:40 Medical Decision Making - Medical Decision Making Pt was seen at bedside, also will be seen by attending Dr. Mackay. Pt presenting with complaints of substernal chest discomfort x2 days. Pt states the pain is intermittent, and mostly comes while she is pushing herself in her wheelchair. The pain radiates up towards her b/l jaws, and has been associated with nausea, but no vomiting or diaphoresis. The pt also currently complains of active discomfort in the ER while she is lying still. The pain lasts for about 2-3 minutes and then improves on its own. Pt has been compliant with all of her medications. Pt was recently in the ER on 12/01 after she stubbed her R big toe, and lost her R toenail, and was started on Augmentin BID x10 days. Pt also endorses b/l leg swelling, and recently increased pain in her b/l calves. Considering ACS vs unstable angina vs MSK/costochondritis vs DVT/PE vs CHF exacerbation vs infectious (pneumonia, bronchitis). Ordered work-up including CBC, CMP, troponin, BNP, ECG, chest x-ray, b/l LE doppler. Provided 650 mg PO tylenol, 162 mg PO aspirin and 0.4 SL NG for improvement of chest discomfort. Will continue to reassess pt and monitor for symptomatic improvement. ECG: NSR with 1st degree AV block (HR 75, CO 218, QRS 92, QTc 435). Poor r wave progression from V2-V3. No TWIs or significant ST segment changes. No significant changes from prior ECG (Jul 2018), with exception of prolonged CO and R wave progression from V2-V3. 12/05/18 15:54 Pt pain improved after SL NG, BP remains stable and pt saturating O2 well. Pt appears more comfortable. Pt being taken for b/l LE doppler. 12/05/18 16:42 CBC: normal WBC, H/H worsening anemia 7.5/24 -- worsening renal function? no evidence of acute blood loss CMP generally WNL for pt; BNP 366, trop <.02 Chest x-ray: b/l increased acute infiltrative makings without focal consolidation or acute change. Pt in US for DVT study. 12/05/18 18:04 DVT study negative. Jorge hospitalist team for admission. 12/05/18 18:[address] Murguia who agrees with inpatient tele monitoring, as pt has no ECG changes and negative troponin. Pt admitted to inpatient team (Dr. Cummings). 12/05/18 19:21 *DC/Admit/Observation/Transfer Diagnosis at time of Disposition: Angina at rest CAD (coronary artery disease) Qualifiers: Coronary Disease-Associated Artery/Lesion type: unspecified vessel or lesion type [place] vs. transplanted heart: [place] heart Associated angina: with unstable angina Qualified Code(s): I25.110 - Atherosclerotic heart disease of [place] coronary artery with unstable angina pectoris Renal failure Qualifiers: Renal failure chronicity: chronic Chronic kidney disease stage: unspecified stage Qualified Code(s): N18.9 - Chronic kidney disease, unspecified Chest pain Qualifiers: Chest pain type: chest pain due to myocardial ischemia Ischemic chest pain type : unstable angina pectoris Qualified Code(s): I20.0 - Unstable angina Anemia Qualifiers: Anemia type: unspecified type Qualified Code(s): D64.9 - Anemia, unspecified - Discharge Dispostion Condition at time of disposition: Stable Decision to Admit order: Yes - Referrals Referrals: Elijah Sanders MD [Primary Care Provider] - - Patient Instructions - Post Discharge Activity
[2018-12-05] MEDS ORDERED: NITROGLYCERIN SUBLINGUAL 1/150 0.4 MG TAB SL ONE (15:47)
[2018-12-05] MEDS ORDERED: ASPIRIN 81 MG CHEWABLE TABLETS PO ONE (15:47)
[2018-12-05] MEDS ORDERED: ACETAMINOPHEN 325 MG TABLET (FP) PO ONE (15:47)
[2018-12-05 15:50] LABS: BASO % 0.3 % (0-2.0); EOS % 3.5 % (0-4.5); HEMATOCRIT 24.4 % (32.4-45.2); HEMOGLOBIN 7.5 GM/dL (10.7-15.3); LYMPH % 5.4 % (8-40); MCH 24.9 pg (25.7-33.7); MCHC 30.8 g/dl (32.0-36.0); MEAN CELL VOLUME 80.9 fl (80-96); MEAN PLT VOLUME 8.8 fl (7.5-11.1); MONO % 6.4 % (3.8-10.2); NEUT % 84.4 % (42.8-82.8); PLATELET COUNT 352 K/MM3 (134-434); RBC 3.02 M/mm3 (3.60-5.2); RDW 18.4 % (11.6-15.6); WHITE BLOOD COUNT 9.9 K/mm3 (4.0-10.0)
[2018-12-05] MEDS ORDERED: ACETAMINOPHEN 325 MG TABLET (FP) ONE (15:58)
[2018-12-05] MEDS ORDERED: ASPIRIN 81 MG CHEWABLE TABLETS ONE (15:58)
--- NOTE | 2018-12-05 16:00 | PDOC ---
Attending Attestation - HPI HPI: 12/05/18 17:13 The patient is a 83 year old female, with a significant past medical history of , who presents to the emergency department with, pressure-like chest pain with associated shortness of breath upon exertion and at rest. She denies recent fevers, chills, headache or dizziness. She denies recent nausea, vomit, diarrhea or constipation. She denies recent dysuria, frequency, urgency or hematuria. Allergies: NKDA Past surgical history: None reported. Social history: [facility] Primary Care Physician: Dr. Ledesma <Preeti Lizama - Last Filed: 12/05/18 17:12> - Resident Resident Name: Sarah Jain - ED Attending Attestation I have performed the following: I have examined & evaluated the patient, The case was reviewed & discussed with the resident, I agree w/resident's findings & plan, Exceptions are as noted - Physicial Exam PE: 12/05/18 19:47 general: no distress, well appearing card: rrr, no mrg pulm: cta bl abd soft nontender - Medical Decision Making 12/05/18 19:53 83y F presenting with exertional chest pain lasting approx 30 min before resolving with rest. also resolves w/ ntg. +sob without n/v diaphrosis, orthopnea, leg swelling. nonischemic ekg trop neg x 1 will admit for unstable angina case dw resident dr. mendez and with cardiology A portion of this note was documented by scribe services under my direction. I have reviewed the details of the note, within reason, and agree with the documentation with the following case summary and management plan written by me <Pito Mackay - Last Filed: 12/07/18 07:31> Attestations - Attestations 12/05/18 17:13 Documentation prepared by Preeti Lizama, acting as biomedical instrument technician for Pito Mackay MD. <Preeti Lizama - Last Filed: 12/05/18 17:12>
[2018-12-05 16:14] LABS: ALBUMIN 3.3 g/dl (3.4-5.0); ALK PHOS 174 U/L (45-117); ANION GAP 11 MMOL/L (8-16); BILIRUBIN,TOTAL 0.3 mg/dL (0.2-1); BLOOD UREA NITROGEN 18 mg/dL (7-18); CALCIUM 8.4 mg/dL (8.5-10.1); CHLORIDE 105 mmol/L (98-107); CO2 25 mmol/L (21-32); CREATININE 1.2 mg/dL (0.55-1.3); GLUCOSE,RANDOM 128 mg/dL (74-106); MAGNESIUM 2.6 mg/dL (1.8-2.4); SGOT/AST 13 U/L (15-37); SGPT/ALT 16 U/L (13-61); SODIUM 140 mmol/L (136-145); TOT PROT 6.9 g/dl (6.4-8.2)
[2018-12-05 16:33] LABS: INR 1.01 (0.83-1.09); PROTHROMBIN TIME (PATIENT) 11.9 SEC (9.7-13.0)
--- NOTE | 2018-12-05 19:50 | PN ---
Teaching Attending Note Name of Resident: Tyler Vigil ATTENDING PHYSICIAN STATEMENT I saw and evaluated the patient. I reviewed the resident's note and discussed the case with the resident. I agree with the resident's findings and plan as documented. SUBJECTIVE: Patient is an 83 year old woman with PMH of HTN, HLD, NIDDM, CAD/[place] (x1 stent on brilinta and ASA), CHF (preserved EF), and ?CKD, who is presenting via EMS from [facility], with complaints of substernal chest discomfort for 2 days. Patient says the pain is intermittent, and mostly comes while she is pushing herself in her wheelchair. The pain radiates up towards her bilateral jaws, and has been associated with nausea, but no vomiting or diaphoresis. Patient currently complains of active discomfort in the ER while she is lying still. The pain lasts for about 2-3 minutes and then improves on its own. She has been compliant with all of her medications. She was recently in the ER on 12/01/18 after she stubbed her R big toe, and lost her R toenail, and was started on Augmentin BID x10 days. Also has bilateral leg swelling, and recently increased pain in her calves. 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 Normocephalic, atraumatic. External ears are normal and hearing is grossly intact. No nasal discharge. Neck: Supple, nontender. No palpable adenopathy or thyromegaly. No JVD Chest: Good effort. Clear to auscultation and percussion. Heart: Regular. No S3 or rub; 2/6 HSM Abdomen: Not distended, soft, nontender and no HSM. No rebound or guarding. Normal bowel sounds. Ext: Peripheral pulses intact. No leg edema. Missing toenail on right big toe. Calf tenderness and edema. Skin: Warm and dry. No petechiae, rash or ecchymosis. Neuro: Alert. Oriented x3. CN 2-12 grossly intact. Sensation grossly intact in all four extremities and DTR are symmetric. Psych: Appropriate mood and affect. Good insight. Home Medications Medication Instructions Recorded Acetaminophen [Tylenol] 650 mg PO BID PRN 08/07/17 Amlodipine Besylate 5 mg PO DAILY 08/07/17 Ammonium Lactate [Skin Treatment] 1 applic TP DAILY 08/07/17 Ascorbic Acid [Vitamin C -] 500 mg PO DAILY 08/07/17 Aspirin [ASA -] 81 mg PO DAILY 08/07/17 Atorvastatin Ca [Lipitor] 40 mg PO DAILY 08/07/17 Bacitracin - [Bacitracin Topical 1 applic TP PRN PRN 08/07/17 Ointment -] Gabapentin 300 mg PO TID 08/07/17 Hypromellose 0.5% Opth Soln 1 drop OU QID PRN 08/07/17 [Artificial Tears] Insulin Glargine,Hum.rec.anlog 35 units SQ HS 08/07/17 [Lantus (10mL VIAL) -] Isosorbide Mononitrate [Isosorbide 30 mg PO DAILY 08/07/17 Mononitrate ER] Loratadine [Claritin] 10 mg PO DAILY 08/07/17 Multivitamin [One Daily] 1 each PO DAILY 08/07/17 Pantoprazole Sodium 40 mg PO BID 08/07/17 Polyethylene Glycol 3350 [Miralax 17 gm PO DAILY 08/07/17 119 gm Btl -] Ramipril 10 mg PO DAILY 08/07/17 Ticagrelor [Brilinta] 60 mg PO BID 08/07/17 Furosemide [Lasix -] 40 mg PO BID #14 tablet MDD 2 08/14/17 Insulin (Levemir) [Levemir Vial] 15 units SQ AM ml 08/14/17 Sitagliptin Phosphate [Januvia -] 25 mg PO DAILY@0700 tab 08/14/17 Tamsulosin HCl [Flomax -] 0.4 mg PO DAILY@0830 #30 08/14/17 cap.er.24h MDD 1 predniSONE [Deltasone -] 2.5 mg PO DAILY #7 tablet MDD 2 08/14/17 Amox-Tr/K Cl [Augmentin - 875Mg 1 tab PO BID #20 tablet 12/01/18 Tablet] Abnormal Lab Results 12/05/18 12/05/18 15:40 15:40 RBC 3.02 L Hgb 7.5 L Hct 24.4 L D MCH 24.9 L D MCHC 30.8 L RDW 18.4 H Absolute Neuts (auto) 8.3 H Neutrophils % 84.4 H Lymphocytes % 5.4 L D Random Glucose 128 H Calcium 8.4 L Magnesium 2.6 H AST 13 L Alkaline Phosphatase 174 H Albumin 3.3 L ASSESSMENT AND PLAN: 1. Chest pain - Pain improved with NTG and she also got Aspirin 162 mg. EKG is NSR with 1st degree AV block but no ST-T wave changes. Initial troponin is negative. Will admit to telemetry to rule out ACS and get ECHO. Consult cardiology. No acute abnormality on CXR and leg doppler is negative for DVT. Continue po Augmentin for right toe nail trauma. 2. Hypoalbuminemia - Possibly due to combined effects of malnutrition and inflammation associated with comorbid chronic conditions. Will rule out proteinuria and ensure adequate dietary protein intake and also consult bottom turner. 3. DM For now, we will hold the home diabetes drugs and implement sliding scale insulin regimen. Provide comprehensive diabetes care with patient teaching and counseling about the importance of adherence to prescribed diabetes regimen, euglycemia, eye care and foot care. 4. Anemia - Cause unclear. Do basic anemia work up including serial stool guaiacs, reticulocyte count and iron studies. If iron deficient, will give IV iron. Consult hematology. 5. Obesity Counseled on the risks associated with obesity. Will provide patient all the necessary assistance, counseling and positive reinforcement to facilitate weight loss. Consult bottom turner. 6. Hypertension - Restart outpatient antihypertensive drugs and revise regimen to ensure smooth [id number] good BP control. Nonpharmacologic measures to control hypertension like weight loss, salt restriction and exercise discussed. 7. DVT prophylaxis - Heparin 5000u sq tid. 8. Advance directives - Full code
[2018-12-05] MEDS ORDERED: NITROGLYCERIN SUBLINGUAL 1/150 0.4 MG TAB SL PRN (20:09)
--- NOTE | 2018-12-05 20:13 | HP ---
CHIEF COMPLAINT: chest pain PCP: Tommy HISTORY OF PRESENT ILLNESS: Patient is an 83 y/o F w/ PMHx HTN, HLD, DM, CAD, [place] s/p stent x1 on ASA/ Brilinta, HFpEF, CKD, from [facility] [place], p/w substernal chest pain x 2 days, intermittent lasting 2-3 minutes in waves, associated with exertion but becoming less exertional, radiating to jaw b/l, a/w nausea but no vomiting/ diaphoresis. Additionally c/o worsening pain and swelling in LE b/l. Dr. Murguia consulted by ED and requested telemetry admission. Seen in ED on 12/01 for wound to right great toe and started on PO Augmentin BID x 10 days at that time. On presentation, vitals stable. H/H significant for progressive worsening but no symptoms of anemia. CMP largely wnl, glucose controlled. Initial troponin negative. EKG without acute ST changes since prior in July. CXR showing increased b/l infiltrative markings. Duplex study negative for DVT b/l. Given ASA, Tylenol, NTG SL by ED, pain had resolved w/ NTG at time of encounter. 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 ER course was notable for: (1) EKG w/o acute ST changes (2) initial troponin negative (3) Recent Travel: PAST MEDICAL HISTORY: As per HPI PAST SURGICAL HISTORY: Social History: Smoking: Alcohol: Drugs: Family History: Allergies No Known Drug Allergies Allergy (Verified 12/05/18 15:11) TOMATO SAUCE ONLY Allergy (Uncoded 12/05/18 15:11) HOME MEDICATIONS: Home Medications Medication Instructions Recorded Acetaminophen [Tylenol] 650 mg PO BID PRN 08/07/17 Amlodipine Besylate 5 mg PO DAILY 08/07/17 Ammonium Lactate [Skin Treatment] 1 applic TP DAILY 08/07/17 Ascorbic Acid [Vitamin C -] 500 mg PO DAILY 08/07/17 Aspirin [ASA -] 81 mg PO DAILY 08/07/17 Atorvastatin Ca [Lipitor] 40 mg PO DAILY 08/07/17 Bacitracin - [Bacitracin Topical 1 applic TP PRN PRN 08/07/17 Ointment -] Gabapentin 300 mg PO TID 08/07/17 Hypromellose 0.5% Opth Soln 1 drop OU QID PRN 08/07/17 [Artificial Tears] Insulin Glargine,Hum.rec.anlog 35 units SQ HS 08/07/17 [Lantus (10mL VIAL) -] Isosorbide Mononitrate [Isosorbide 30 mg PO DAILY 08/07/17 Mononitrate ER] Loratadine [Claritin] 10 mg PO DAILY 08/07/17 Multivitamin [One Daily] 1 each PO DAILY 08/07/17 Pantoprazole Sodium 40 mg PO BID 08/07/17 Polyethylene Glycol 3350 [Miralax 17 gm PO DAILY 08/07/17 119 gm Btl -] Ramipril 10 mg PO DAILY 08/07/17 Ticagrelor [Brilinta] 60 mg PO BID 08/07/17 Furosemide [Lasix -] 40 mg PO BID #14 tablet MDD 2 08/14/17 Insulin (Levemir) [Levemir Vial] 15 units SQ AM ml 08/14/17 Sitagliptin Phosphate [Januvia -] 25 mg PO DAILY@0700 tab 08/14/17 Tamsulosin HCl [Flomax -] 0.4 mg PO DAILY@0830 #30 08/14/17 cap.er.24h MDD 1 predniSONE [Deltasone -] 2.5 mg PO DAILY #7 tablet MDD 2 08/14/17 Amox-Tr/K Cl [Augmentin - 875Mg 1 tab PO BID #20 tablet 12/01/18 Tablet] REVIEW OF SYSTEMS As per HPI PHYSICAL EXAMINATION Vital Signs - 24 hr 12/05/18 12/05/18 12/05/18 15:09 16:03 18:00 Temperature 97.7 F Pulse Rate 79 72 Pulse Rate [ 72 82 Right] Respiratory 18 15 Rate Blood Pressure 132/59 L Blood Pressure 132/59 L 120/56 L [Right] O2 Sat by Pulse 97 99 95 Oximetry (%) GENERAL: A&Ox3, NAD HEAD: NC/AT EYES: R eye round, reactive to L&A, L eye partly closed w/ visible lesion, non- responsive; EOMI, anicteric EARS, NOSE, THROAT: Ears normal, nares patent, oropharynx clear without exudates. Moist mucous membranes. NECK: Normal range of motion, supple without lymphadenopathy, JVD, or masses. LUNGS: CTA b/l HEART: RRR, +holosystolic murmur ABDOMEN: +bs, soft, NT, ND UPPER EXTREMITIES: 2+ pulses, warm, well-perfused. No cyanosis. No clubbing. No peripheral edema. LOWER EXTREMITIES: 2+ pulses, warm, well-perfused. Calves red, tender, and edematous w/o pitting b/l. 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 Good eye contact. Appropriate mood and affect. SKIN: Warm, dry, normal turgor, no rashes or lesions noted, normal capillary refill. Laboratory Results - last 24 hr 12/05/18 12/05/18 12/05/18 15:40 15:40 15:40 WBC 9.9 RBC 3.02 L Hgb 7.5 L Hct 24.4 L D MCV 80.9 MCH 24.9 L D MCHC 30.8 L RDW 18.4 H Plt Count 352 D MPV 8.8 Absolute Neuts (auto) 8.3 H Neutrophils % 84.4 H Lymphocytes % 5.4 L D Monocytes % 6.4 Eosinophils % 3.5 Basophils % 0.3 Nucleated RBC % 0 PT with INR 11.90 INR 1.01 Sodium 140 Potassium 4.0 Chloride 105 Carbon Dioxide 25 Anion Gap 11 BUN 18 Creatinine 1.2 Creat Clearance w eGFR 42.70 Random Glucose 128 H Calcium 8.4 L Magnesium 2.6 H Total Bilirubin 0.3 AST 13 L ALT 16 Alkaline Phosphatase 174 H Creatine Kinase 34 Troponin I < 0.02 B-Natriuretic Peptide 366.0 Total Protein 6.9 Albumin 3.3 L ASSESSMENT/PLAN: 83 y/o F w/ PMHx HTN, HLD, DM, CAD, [place] s/p stent x1 on ASA/Brilinta, HFpEF, CKD , from [facility] [place], p/w worsening exertional substernal chest pain x 2 days A: -unstable angina -R great toe wound on PO ABx -CAD s/p stent -HFpEF -HTN -HLD -CKD -DM P: -EKG reassuring -serial troponins pending -cardiology consulted, following -echo ordered -NTG SL PRN -restarted home ASA, Brilinta, Imdur, Norvasc, Ramipril, Lipitor, Lasix -BGM, SSI -restarted home gabapentin -resumed PO Augmentin BID -miralax -heparin sq for DVT PPx -home PTX for GI PPx -cardiac diet -no IVF -monitor BMP, Mg, Phos -monitor CBC -normal transfusion thresholds -full code -admit to telemetry Visit type - Emergency Visit Emergency Visit: Yes ED Registration Date: 12/05/18 Care time: The patient presented to the Emergency Department on the above date and was hospitalized for further evaluation of their emergent condition. - New Patient This patient is new to me today: Yes Date on this admission: 12/05/18 - Critical Care Critical Care patient: No
[2018-12-05] MEDS ORDERED: HEPARIN NA (PORCINE) 5,000 UNITS/ML 1ML VIAL ONE (20:33)
[2018-12-05] MEDS ORDERED: AMOX TR/POT CLAV 875MG/125MG TABLETS (FP) ONE (21:08)
[2018-12-05] MEDS ORDERED: PANTOPRAZOLE 40 MG TABLET (FP) ONE (21:50)
[2018-12-05] MEDS ORDERED: TICAGRELOR 60 MG TABLET PO SCH (22:00)
[2018-12-05] MEDS: HEPARIN NA (PORCINE) 5,000 UNITS/ML 1ML VIAL SQ SCH (22:20)
[2018-12-05] MEDS: AMOX TR/POT CLAV 875MG/125MG TABLETS (FP) PO SCH (22:20)
[2018-12-05] MEDS: ATORVASTATIN CA 40 MG TABLET (FP) PO SCH (22:21)
[2018-12-05] MEDS: INSULIN SLIDING SCALE (NOVOLOG) 1 VIAL SQ SCH (22:21)
[2018-12-05] MEDS: GABAPENTIN 300 MG CAPSULE (FP) PO SCH (22:21)
[2018-12-05] MEDS: PANTOPRAZOLE 40 MG TABLET (FP) PO SCH (22:21)
[2018-12-06 05:56] LABS: BASO % 0.4 % (0-2.0); EOS % 4.2 % (0-4.5); MCHC 31.4 g/dl (32.0-36.0); MEAN CELL VOLUME 79.5 fl (80-96); MEAN PLT VOLUME 8.6 fl (7.5-11.1); MONO % 7.1 % (3.8-10.2); NEUT % 82.3 % (42.8-82.8); PLATELET COUNT 289 K/MM3 (134-434); RBC 2.62 M/mm3 (3.60-5.2); RDW 18.5 % (11.6-15.6)
[2018-12-06] MEDS ORDERED: FUROSEMIDE 40 MG TABLET (FP) PO SCH (06:00)
[2018-12-06 06:19] LABS: HEMOGLOBIN 6.6 GM/dL (10.7-15.3)
[2018-12-06 06:20] LABS: HEMATOCRIT 20.9 % (32.4-45.2)
[2018-12-06] MEDS: GABAPENTIN 300 MG CAPSULE (FP) PO SCH ×3 (06:23→21:41)
[2018-12-06] MEDS: HEPARIN NA (PORCINE) 5,000 UNITS/ML 1ML VIAL SQ SCH (06:23)
[2018-12-06] MEDS: INSULIN SLIDING SCALE (NOVOLOG) 1 VIAL SQ SCH ×4 (06:23→21:41)
[2018-12-06 06:29] LABS: ANION GAP 8 MMOL/L (8-16); BLOOD UREA NITROGEN 19 mg/dL (7-18); CALCIUM 7.7 mg/dL (8.5-10.1); CHLORIDE 108 mmol/L (98-107); CO2 26 mmol/L (21-32); CREATININE 1.1 mg/dL (0.55-1.3); GLUCOSE,RANDOM 104 mg/dL (74-106); MAGNESIUM 2.6 mg/dL (1.8-2.4); PHOSPHOROUS 4.3 mg/dL (2.5-4.9); POTASSIUM 4.1 mmol/L (3.5-5.1); SODIUM 142 mmol/L (136-145)
[2018-12-06] MEDS ORDERED: TAMSULOSIN HCL 0.4 MG CAP PO SCH (08:30)
--- NOTE | 2018-12-06 09:14 | PN ---
Physical Exam: SUBJECTIVE: Patient seen and examined at bedside this morning. She endorses improvement of her chest tightness and shortness of breath. Currently complains of "pounding" sensation within her ears bilaterally. She states this is not a new complaint, and has had these symptoms in the past. She states that she has not noticed any evident bleeding. Patient denies subjective fevers, chills, palpitations, abdominal pain, nausea, vomiting, melena, hematochezia, dysuria, hematuria. OBJECTIVE: Vital Signs Period Temp Pulse Resp BP Sys/Emerson Pulse Ox Last 24 Hr 97.7 F-97.8 F 72-82 15-20 106-132/42-64 92-99 GENERAL: The patient is awake, alert, and fully oriented, in no acute distress. HEAD: Normocephalic, atraumatic. EYES: PERRL, extraocular movements intact, sclera anicteric, conjunctiva clear. ENT: Oropharynx clear, without erythema or exudates. Moist mucous membranes. NECK: Trachea midline, full range of motion. Supple without lymphadenopathy. LUNGS: Good inspiratory ewffort with poor air entry bilaterally. Bibasilar crackles auscultated bilaterally. No accessory muscle use. HEART: Regular rate and rhythm, S1, S2 auscultated with holosystolic murmur at right upper sternal border. ABDOMEN: Soft, distended, nontender to light and deep palpation x4 quadrants, no rebound tenderness, no guarding. Normoactive bowel sounds x4 quadrants. No hepatosplenomegaly palpated or percussed. RECTAL: External hemorrhoid visualized at 9 o'clock, Good anal sphincter tone. No internal hemorrhoids appreciated. Trace liquid stool palpated within rectal vault. Light brown stool upon gloved finger, without misha blood. Sample sent for stool occult blood. EXTREMITIES: 2+ radial, 1+ dorsalis pedis pulses bilaterally. warm, well perfused. 2+ lower extremity edema, with thickened skin, and chronic venous stasis changes bilaterally. NEUROLOGICAL: Cranial nerves II through XII grossly intact. Normal speech. No gross focal deficits. PSYCH: Normal mood, normal affect upon my encounter. Laboratory Results - last 24 hr 12/05/18 12/05/18 12/05/18 15:40 15:40 15:40 WBC 9.9 RBC 3.02 L Hgb 7.5 L Hct 24.4 L D MCV 80.9 MCH 24.9 L D MCHC 30.8 L RDW 18.4 H Plt Count 352 D MPV 8.8 Absolute Neuts (auto) 8.3 H Neutrophils % 84.4 H Lymphocytes % 5.4 L D Monocytes % 6.4 Eosinophils % 3.5 Basophils % 0.3 Nucleated RBC % 0 PT with INR 11.90 INR 1.01 Sodium 140 Potassium 4.0 Chloride 105 Carbon Dioxide 25 Anion Gap 11 BUN 18 Creatinine 1.2 Creat Clearance w eGFR 42.70 POC Glucometer Random Glucose 128 H Calcium 8.4 L Phosphorus Magnesium 2.6 H Ferritin Total Bilirubin 0.3 AST 13 L ALT 16 Alkaline Phosphatase 174 H Creatine Kinase 34 Troponin I < 0.02 B-Natriuretic Peptide 366.0 Total Protein 6.9 Albumin 3.3 L Blood Type Antibody Screen Crossmatch 12/05/18 12/05/18 12/05/18 19:50 19:50 21:56 WBC RBC Hgb Hct MCV MCH MCHC RDW Plt Count MPV Absolute Neuts (auto) Neutrophils % Lymphocytes % Monocytes % Eosinophils % Basophils % Nucleated RBC % PT with INR INR Sodium Potassium Chloride Carbon Dioxide Anion Gap BUN Creatinine Creat Clearance w eGFR POC Glucometer 128 Random Glucose Calcium Phosphorus Magnesium Ferritin Total Bilirubin AST ALT Alkaline Phosphatase Creatine Kinase 26 Troponin I < 0.02 B-Natriuretic Peptide Total Protein Albumin Blood Type A POSITIVE Antibody Screen Negative Crossmatch See Detail 12/06/18 12/06/18 12/06/18 05:30 05:30 06:22 WBC 8.0 RBC 2.62 L Hgb 6.6 L* Hct 20.9 L MCV 79.5 L MCH 25.0 L MCHC 31.4 L RDW 18.5 H Plt Count 289 MPV 8.6 Absolute Neuts (auto) 6.6 Neutrophils % 82.3 Lymphocytes % 6.0 L Monocytes % 7.1 Eosinophils % 4.2 Basophils % 0.4 Nucleated RBC % 0 PT with INR INR Sodium 142 Potassium 4.1 Chloride 108 H Carbon Dioxide 26 Anion Gap 8 BUN 19 H Creatinine 1.1 Creat Clearance w eGFR 47.21 POC Glucometer 104 Random Glucose 104 Calcium 7.7 L Phosphorus 4.3 Magnesium 2.6 H Ferritin 7.9 L Total Bilirubin AST ALT Alkaline Phosphatase Creatine Kinase Troponin I B-Natriuretic Peptide Total Protein Albumin Blood Type Antibody Screen Crossmatch Active Medications Generic Name Dose Route Start Last Admin Trade Name Freq PRN Reason Stop Dose Admin Amlodipine Besylate 5 mg 12/06/18 10:00 Norvasc - PO DAILY [facility] Amoxicillin/Clavulanate Potassium 1 tab 12/05/18 20:30 12/05/18 22:20 Augmentin - 875mg Tablet PO 1 tab BIDWM JOSE ELIAS Administration Aspirin 81 mg 12/06/18 10:00 Asa - PO DAILY [facility] Atorvastatin Calcium 40 mg 12/05/18 22:00 12/05/18 22:21 Lipitor - PO 40 mg HS JOSE ELIAS Administration Furosemide 40 mg 12/06/18 06:00 12/06/18 06:23 Lasix - PO 40 mg BIDLASIX JOSE ELIAS Administration Gabapentin 300 mg 12/05/18 22:00 12/06/18 06:23 Neurontin - PO 300 mg TID JOSE ELIAS Administration Insulin Aspart 1 vial 12/05/18 22:00 12/06/18 06:23 Novolog Vial Sliding Scale - SQ Not Given ACHS [facility] Protocol Isosorbide Mononitrate 30 mg 12/06/18 10:00 Imdur - PO DAILY [facility] Nitroglycerin 0.4 mg 12/05/18 20:09 Nitrostat - SL Q5M PRN FOR CHEST PAIN Pantoprazole Sodium 40 mg 12/05/18 22:00 12/05/18 22:21 Protonix - PO 40 mg BID [facility] Administration Polyethylene Glycol 17 gm 12/06/18 10:00 Miralax (For Daily Use) - PO DAILY [facility] Ramipril 10 mg 12/06/18 10:00 Altace - PO DAILY [facility] Tamsulosin HCl 0.4 mg 12/06/18 08:30 Flomax - PO DAILY@0830 [facility] Ticagrelor 60 mg 12/05/18 22:00 12/05/18 22:20 Brilinta PO 60 mg BID JOSE ELIAS Administration ASSESSMENT/PLAN: Patient is an 83 year old female with history of hypertension, hyperlipidemia, diabetes mellitus, coronary artery disease and myocardial infarction s/p coronary stent (on Apirin, Brilinta), HFpEF, chronic kidney diseaseoresents with complaint of chest tightness ongoing for past three days. Chest pain -Likely secondary to symptomatic anemia -Pain improved with Nitroglycerin administered in the ED, in addition to Aspirin 162 mg. -EKG shows normal sinus rhythm, 1st degree AV block. No ischemic ST-T wave changes. -Troponin- I negative x2 -Follow cardiac ECHO -Duplex of bilateral lower extremities negative for DVT -Chest radiograph shows no acute pathology. -Cardiolgy consult (Dr. Murguia) appreciated -Telemetry monitoring. Symptomatic Anemia -Hb 7.5/ Hct 24.4 upon admission decreased to Hb 6.6/ Hct 20.9. Microcytic at 79.5. Last CBC (08/2017) shows Hb 10.4, Hct 32.1, MCV 92.4. -Patient does not appear to be actively bleeding. No misha blood noted upon rectal exam. However, stool positive for occult blood. -Transfusion 2 units PRBC stat. -Given patient's history of myocardial infarct, and coronary artery disease, Hb transfusion goal should be above 8.0grams/ dL. -Follow CBC 1 hour after blood transfusion completed. -Protonix 80mg IV push STAT -Begin Protonix drip at 8mg/ hour -Follow iron studies; Fe, iron saturation, transferrin, TIBC -Gastroenterology consult (Dr. Mata) Coronary artery disease, history of IL s/p stent -Aspirin and Brilinta held in light of anemia. -Upon discharge will reinstate only Aspirin 81mg daily, and discontinue Brilinta, per cardiology recommendations. -Cardiology consult (Dr. Murguia) appreciated. Diabetes mellitus -Insulin sliding scale ACHS -Fignerstick blood glucose monitoring ACHS Hypertension -Holding home antihypertensives (Norvasc, Ramipril, Imdur) as patient with borderline low blood pressures -Lasix currently held; will re-evaluate after blood transfusions complete to determine if volume overloaded. Hyperlipidemia -Atorvastatin 40mg PO HS Right toenail infection -Continue Augmentin 875mg PO BID for right toe nail infection secondary to traumatic removal of toe-nail. Prophylaxis -Heparin 5000u subq TID -Protonix Drip - NPO pending Gastroenterology evaluation Disposition -Continue care in Telemetry floor. Visit type - Emergency Visit Emergency Visit: Yes ED Registration Date: 12/05/18 Care time: The patient presented to the Emergency Department on the above date and was hospitalized for further evaluation of their emergent condition. - New Patient This patient is new to me today: Yes Date on this admission: 12/06/18 - Critical Care Critical Care patient: No - Discharge Referral Referred to [facility] Med P.C.: No
[2018-12-06] MEDS ORDERED: ASPIRIN 81 MG CHEWABLE TABLETS PO SCH (10:00)
[2018-12-06] MEDS: AMOX TR/POT CLAV 875MG/125MG TABLETS (FP) PO SCH ×2 (10:17→17:11)
[2018-12-06] MEDS: POLYETHYLENE GLYCOL 3350 119 GM BTL PO SCH (10:18)
[2018-12-06] MEDS: PANTOPRAZOLE 40 MG TABLET (FP) PO SCH (10:18)
--- NOTE | 2018-12-06 10:24 | EKG ---
Test Reason : Blood Pressure : / mmHG Vent. Rate : 075 BPM Atrial Rate : 075 BPM P-R Int : 218 ms QRS Dur : 092 ms QT Int : 390 ms P-R-T Axes : 003 037 057 degrees QTc Int : 435 ms SINUS RHYTHM WITH 1ST DEGREE A-V BLOCK OTHERWISE NORMAL ECG WHEN COMPARED WITH ECG OF 15-SEP-2017 17:21, NO SIGNIFICANT CHANGE WAS FOUND Confirmed by JOHN CAMPA, LUZ ([id number]) on 12/06/2018 10:24:31 AM Referred By: Confirmed By:LUZ LOPEZ MD
[2018-12-06] MEDS ORDERED: PANTOPRAZOLE SODIUM 40 MG VIAL IVPB ONE (11:13)
--- NOTE | 2018-12-06 11:42 | CON.CARD ---
Cardiology Consult (text) - Consultation Consultation Note: Chief Complaint: cp, sob History of Present Illness: 83 yo female came to ER for cp, sob. Past few days noticed these sxs. She is wheelchair bound so sxs happened at rest. Feels like central chest pressure with sob at same time. No palps, dizzy loc pnd orthopnea. LE edema stable. Found to have anemia with hgb 6s, now getting prbcs. Sees me for cardio. 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 History of Recent Travel: No Home Medications - Allergies Allergies/Adverse Reactions: Allergies Allergy/AdvReac Type Severity Reaction Status Date / Time No Known Drug Allergies Allergy Verified 12/05/18 15:11 TOMATO SAUCE ONLY Allergy Uncoded 12/05/18 15:11 - Home Medications Home Medications Medication Instructions Recorded Acetaminophen [Tylenol] 650 mg PO BID PRN 08/07/17 Amlodipine Besylate 5 mg PO DAILY 08/07/17 Ammonium Lactate [Skin Treatment] 1 applic TP DAILY 08/07/17 Ascorbic Acid [Vitamin C -] 500 mg PO DAILY 08/07/17 Aspirin [ASA -] 81 mg PO DAILY 08/07/17 Atorvastatin Ca [Lipitor] 40 mg PO DAILY 08/07/17 Bacitracin - [Bacitracin Topical 1 applic TP PRN PRN 08/07/17 Ointment -] Gabapentin 300 mg PO TID 08/07/17 Hypromellose 0.5% Opth Soln 1 drop OU QID PRN 08/07/17 [Artificial Tears] Insulin Glargine,Hum.rec.anlog 35 units SQ HS 08/07/17 [Lantus (10mL VIAL) -] Isosorbide Mononitrate [Isosorbide 30 mg PO DAILY 08/07/17 Mononitrate ER] Loratadine [Claritin] 10 mg PO DAILY 08/07/17 Multivitamin [One Daily] 1 each PO DAILY 08/07/17 Pantoprazole Sodium 40 mg PO BID 08/07/17 Polyethylene Glycol 3350 [Miralax 17 gm PO DAILY 08/07/17 119 gm Btl -] Ramipril 10 mg PO DAILY 08/07/17 Ticagrelor [Brilinta] 60 mg PO BID 08/07/17 Furosemide [Lasix -] 40 mg PO BID #14 tablet MDD 2 08/14/17 Insulin (Levemir) [Levemir Vial] 15 units SQ AM ml 08/14/17 Sitagliptin Phosphate [Januvia -] 25 mg PO DAILY@0700 tab 08/14/17 Tamsulosin HCl [Flomax -] 0.4 mg PO DAILY@0830 #30 08/14/17 cap.er.24h MDD 1 predniSONE [Deltasone -] 2.5 mg PO DAILY #7 tablet MDD 2 08/14/17 Amox-Tr/K Cl [Augmentin - 875Mg 1 tab PO BID #20 tablet 12/01/18 Tablet] Family Disease History - Family Disease History Family Disease History: Diabetes: Sister ( of CLOUD rt cirrhosis ), Heart Disease: Father ( at age 33 with DE), Brother ( after CABG), CA: Mother ( of Ovarian cancer at age 57), Other: Sister Review of Systems - Review of Systems Constitutional: denies: Chills, Fever Eyes: denies: Eye Pain HENT: denies: Nasal Congestion Neck: denies: Stiffness Cardiovascular: denies: Palpitations Respiratory: denies: Orthopnea, PND Gastrointestinal: denies: Diarrhea, Rectal Bleeding Genitourinary: denies: Burning, Hematuria Musculoskeletal: denies: Muscle Pain Integumentary: denies: Rash Neurological: denies: Numbness, Seizure, Syncope Endocrine: denies: Excessive Sweating Hematology/Lymphatic: denies: Excessive Bleeding Vital Signs: Vital Signs Period Temp Pulse Resp BP Sys/Emerson Pulse Ox Last 24 Hr 97.7 F-97.8 F 72-82 15-20 106-132/42-64 92-99 Constitutional: Yes: No Distress, Obese Eyes: No: Sclera Icterus HENT: No: Nasal Congestion Neck: No: Decreased ROM Respiratory: Yes: CTA Bilaterally. No: Accessory Muscle Use, Rales, Wheezes Gastrointestinal: Yes: Normal Bowel Sounds. No: Distention, Hepatomegaly, Palpable Mass, Tenderness Cardiovascular: Yes: Regular Rate and Rhythm JVD: No Carotid Bruit: No PMI: Non-Displaced Heart Sounds: Yes: S1, S2. No: Gallop Murmur: No: Systolic Murmur, Diastolic Murmur Extremities: No: Cold, Cyanosis Edema: Yes (1+ pretibs) Peripheral Pulses: 2+ Left Carotid, 2+ Right Carotid, 2+ Left Doralis Pedis, 2+ Right Dorsalis Pedis Integumentary: No: Jaundice Neurological: Yes: Alert, Oriented (x3) Psychiatric: No: Agitated Laboratory Last Values WBC 8.0 K/mm3 (4.0-10.0) 12/06/18 05:30 RBC 2.62 M/mm3 (3.60-5.2) L 12/06/18 05:30 Hgb 6.6 GM/dL (10.7-15.3) L* 12/06/18 05:30 Hct 20.9 % (32.4-45.2) L 12/06/18 05:30 MCV 79.5 fl (80-96) L 12/06/18 05:30 MCH 25.0 pg (25.7-33.7) L 12/06/18 05:30 MCHC 31.4 g/dl (32.0-36.0) L 12/06/18 05:30 RDW 18.5 % (11.6-15.6) H 12/06/18 05:30 Plt Count 289 K/MM3 (134-434) 12/06/18 05:30 MPV 8.6 fl (7.5-11.1) 12/06/18 05:30 Absolute Neuts (auto) 6.6 K/mm3 (1.5-8.0) 12/06/18 05:30 Neutrophils % 82.3 % (42.8-82.8) 12/06/18 05:30 Lymphocytes % 6.0 % (8-40) L 12/06/18 05:30 Monocytes % 7.1 % (3.8-10.2) 12/06/18 05:30 Eosinophils % 4.2 % (0-4.5) 12/06/18 05:30 Basophils % 0.4 % (0-2.0) 12/06/18 05:30 Nucleated RBC % 0 % (0-0) 12/06/18 05:30 PT with INR 11.90 SEC (9.7-13.0) 12/05/18 15:40 INR 1.01 (0.83-1.09) 12/05/18 15:40 Sodium 142 mmol/L (136-145) 12/06/18 05:30 Potassium 4.1 mmol/L (3.5-5.1) 12/06/18 05:30 Chloride 108 mmol/L (98-107) H 12/06/18 05:30 Carbon Dioxide 26 mmol/L (21-32) 12/06/18 05:30 Anion Gap 8 MMOL/L (8-16) 12/06/18 05:30 BUN 19 mg/dL (7-18) H 12/06/18 05:30 Creatinine 1.1 mg/dL (0.55-1.3) 12/06/18 05:30 Creat Clearance w eGFR 47.21 (>60) 12/06/18 05:30 POC Glucometer 104 UNITS (80-120) 12/06/18 06:22 Random Glucose 104 mg/dL (74-106) 12/06/18 05:30 Calcium 7.7 mg/dL (8.5-10.1) L 12/06/18 05:30 Phosphorus 4.3 mg/dL (2.5-4.9) 12/06/18 05:30 Magnesium 2.6 mg/dL (1.8-2.4) H 12/06/18 05:30 Ferritin 7.9 ng/ml (8-388) L 12/06/18 05:30 Total Bilirubin 0.3 mg/dL (0.2-1) 12/05/18 15:40 AST 13 U/L (15-37) L 12/05/18 15:40 ALT 16 U/L (13-61) 12/05/18 15:40 Alkaline Phosphatase 174 U/L (45-117) H 12/05/18 15:40 Creatine Kinase 26 U/L (26-192) 12/05/18 19:50 Troponin I < 0.02 ng/ml (0.00-0.05) 12/05/18 19:50 B-Natriuretic Peptide 366.0 pg/ml (5-450) 12/05/18 15:40 Total Protein 6.9 g/dl (6.4-8.2) 12/05/18 15:40 Albumin 3.3 g/dl (3.4-5.0) L 12/05/18 15:40 Stool Occult Blood Positive (NEGATIVE) 12/06/18 06:00 Blood Type A POSITIVE 12/05/18 19:50 Antibody Screen Negative 12/05/18 19:50 Crossmatch See Detail 12/05/18 19:50 06/2017 mibi: Stress test + for moderate intensity ischemia of posterior and lateral wall. ? TID [facility] 10/12: DAYANA to mLAD, PTCA of D1. residual 50-60% mRCA. OM1 chronically occluded fills via LAD collaterals echo 09/2017: tds; nl lv/rv, no sig valve path Echo 04/12: TDS. normal overall LVSF, can't r/o RWMAs. mild-mod RVE with mild hypo. mild-mod TR. RVSP 30-40 Echo 08/11: nl LV, nl RV, mild LAE, valve fxn WNL CXR: clear lungs/pleura ECG: sr, no ischemic changes tele: sr a/p: chest pain, sob: -no signs acs or chf -trop neg x2 -ECG non-ischemic -06/2017 mibi was done and i reviewed images and there is only minimal inferolateral ischemia in area of patient's known residual disease, no significant TID is seen. -possibly symptoms due to severe anemia, monitor symptoms after prbcs anemia: -transfuse, monitor hgb -GI eval pending -ok to hold asa/brilinta, no recent pci -no cardiac contraindications to foc/egd if needed CAD, prior h/o ACS (UA presentation) with PCI of LAD: -plan as above -residual moderate angiographic stenosis of mRCA, and [employer] of OM fed by LAD collaterals -holding asa and brilinta due to anemia. She has no recent pci so after anemia resolves ok to stop brilinta and resume only asa 81 qd. -cont statin, imdur, ccb chronic diast CHF, venous ins'y/edema: -on lasix 40 bid at home, cont same for now. HTN: -stable on current meds
[2018-12-06] MEDS: PANTOPRAZOLE SODIUM 80 MG in SODIUM CHLORIDE 100 ML IVPB SCH ×2 (12:58→21:41)
--- NOTE | 2018-12-06 14:41 | ECHO ---
Name: OSMANKodi CHARLA Exam:Adult Echocardiogram Study Date: 12/06/2018 12:13 PM Age: 83 yrs Reason For Study: asses ef valvular function Height: 62 in Weight: 181 lb BSA: 1.8 m2 MMode/2D Measurements & Calculations IVSd: 1.00 cm Ao root diam: 2.9 cm LVIDd: 4.3 cm LA dimension: 3.4 cm LVIDs: 3.0 cm LVPWd: 1.1 cm LVPWs: 1.6 cm EDV(Teich): 81.9 ml ESV(Teich): 35.2 ml LVOT diam: 2.0 cm Doppler Measurements & Calculations MV E max frankie: 88.4 cm/sec Ao V2 max: 156.1 cm/sec MV A max frankie: 123.9 cm/sec Ao max P.8 mmHg MV E/A: 0.71 Ao V2 mean: 95.9 cm/sec MV dec time: 0.20 sec Ao mean P.2 mmHg Ao V2 VTI: 28.7 cm CHERELLE(I,D): 2.8 cm2 CHERELLE(V,D): 2.3 cm2 LV V1 max P.4 mmHg SV(LVOT): 81.3 ml LV V1 mean P.8 mmHg LV V1 max: 116.5 cm/sec LV V1 mean: 76.9 cm/sec LV V1 VTI: 26.2 cm PA V2 max: 127.6 cm/sec Med Peak E' Frankie: 5.6 cm/sec PA max P.5 mmHg Med E/e': 15.8 PA acc slope: 312.3 cm/sec2 Lat Peak E' Frankie: 7.8 cm/sec PA acc time: 0.35 sec Lat E/e': 11.3 PA pr(Accel): -79.4 mmHg Procedure A two-dimensional transthoracic echocardiogram with color flow and Doppler was performed. Left Ventricle The left ventricular size, thickness and function are normal. The left ventricular ejection fraction is normal. E/A reversal consistent with but not diagnostic of poor LV compliance. The left ventricular w all motion is normal. Right Ventricle The right ventricle is normal in size and function. Atria Normal left and right atrial size and function. The atrial septum is aneurysmal. Mitral Valve There is mild mitral valve thickening. There is no mitral valve stenosis. There is trace to mild mitr al regurgitation. Tricuspid Valve There is mild tricuspid valve thickening. There is no tricuspid stenosis. There was insufficient TR d etected to calculate RV systolic pressure. Aortic Valve The aortic valve is normal in structure and function. No hemodynamically significant valvular aortic stenosis. No aortic regurgitation is present. Pulmonic Valve The pulmonic valve is not well visualized. There is no pulmonic valvular stenosis. Mild pulmonic valv ular regurgitation. Great Vessels The aortic root is normal size. Pericardium/Pleura There is no pericardial effusion. Interpretation Summary The left ventricular size, thickness and function are normal The left ventricular ejection fraction is normal. The left ventricular wall motion is normal. There is trace to mild mitral regurgitation. There was insufficient TR detected to calculate RV systolic pressure. The atrial septum is aneurysmal. E/A reversal consistent with but not diagnostic of poor LV compliance MD Rupesh Monson 12/06/2018 02:41 PM
[2018-12-06] MEDS ORDERED: FUROSEMIDE 40 MG/4 ML INJECTABLE VIAL IVPUSH ONE ×2 (14:48→23:01)
[2018-12-06 17:09] LABS: HEMATOCRIT 31.7 % (32.4-45.2); HEMOGLOBIN 9.6 GM/dL (10.7-15.3); MCH 25.2 pg (25.7-33.7); MCHC 30.3 g/dl (32.0-36.0); MEAN CELL VOLUME 83.2 fl (80-96); MEAN PLT VOLUME 9.1 fl (7.5-11.1); PLATELET COUNT 339 K/MM3 (134-434); RBC 3.81 M/mm3 (3.60-5.2); RDW 17.9 % (11.6-15.6); WHITE BLOOD COUNT 9.2 K/mm3 (4.0-10.0)
--- NOTE | 2018-12-06 17:39 | PN ---
Teaching Attending Note Name of Resident: Greg Gomez ATTENDING PHYSICIAN STATEMENT I saw and evaluated the patient. I reviewed the resident's note and discussed the case with the resident. I agree with the resident's findings and plan as documented. SUBJECTIVE: Feels SOB, no further CP. Denies BRBPR or hematemesis. No fever/ chills. OBJECTIVE: Afebrile, Hemodynamically Stable. Last Vital Signs Temp Pulse Resp BP Pulse Ox 98.0 F 75 18 150/55 L 92 L 12/06/18 13:30 12/06/18 13:30 12/06/18 13:30 12/06/18 13:30 12/06/18 10:00 HEENT - Atramatic, normocephalic Heart - s1, S2, RRR Lungs - clear to auscultation Abdomen - mild distension, soft, bowel sounds normal. Extremities - No calf tenderness. Edema ++. R great toe erythema, non-tender. Vascularly intact. Poor sensation LEs. Laboratory Results - last 24 hr 12/05/18 12/05/18 12/05/18 19:50 19:50 21:56 WBC RBC Hgb Hct MCV MCH MCHC RDW Plt Count MPV Absolute Neuts (auto) Neutrophils % Lymphocytes % Monocytes % Eosinophils % Basophils % Nucleated RBC % Sodium Potassium Chloride Carbon Dioxide Anion Gap BUN Creatinine Creat Clearance w eGFR POC Glucometer 128 Random Glucose Calcium Phosphorus Magnesium Ferritin Creatine Kinase 26 Troponin I < 0.02 Stool Occult Blood Blood Type A POSITIVE Antibody Screen Negative Crossmatch See Detail 12/06/18 12/06/18 12/06/18 05:30 05:30 06:00 WBC 8.0 RBC 2.62 L Hgb 6.6 L* Hct 20.9 L MCV 79.5 L MCH 25.0 L MCHC 31.4 L RDW 18.5 H Plt Count 289 MPV 8.6 Absolute Neuts (auto) 6.6 Neutrophils % 82.3 Lymphocytes % 6.0 L Monocytes % 7.1 Eosinophils % 4.2 Basophils % 0.4 Nucleated RBC % 0 Sodium 142 Potassium 4.1 Chloride 108 H Carbon Dioxide 26 Anion Gap 8 BUN 19 H Creatinine 1.1 Creat Clearance w eGFR 47.21 POC Glucometer Random Glucose 104 Calcium 7.7 L Phosphorus 4.3 Magnesium 2.6 H Ferritin 7.9 L Creatine Kinase Troponin I Stool Occult Blood Positive Blood Type Antibody Screen Crossmatch 12/06/18 12/06/18 12/06/18 06:22 11:44 16:41 WBC RBC Hgb Hct MCV MCH MCHC RDW Plt Count MPV Absolute Neuts (auto) Neutrophils % Lymphocytes % Monocytes % Eosinophils % Basophils % Nucleated RBC % Sodium Potassium Chloride Carbon Dioxide Anion Gap BUN Creatinine Creat Clearance w eGFR POC Glucometer 104 126 117 Random Glucose Calcium Phosphorus Magnesium Ferritin Creatine Kinase Troponin I Stool Occult Blood Blood Type Antibody Screen Crossmatch Current Medications Generic Name Dose Route Start Last Admin Trade Name Freq PRN Reason Stop Dose Admin Amlodipine Besylate 5 mg 12/06/18 10:00 Norvasc - PO DAILY JOSE ELIAS Amoxicillin/Clavulanate Potassium 1 tab 12/05/18 20:30 12/06/18 17:11 Augmentin - 875mg Tablet PO 1 tab BIDWM JOSE ELIAS Administration Atorvastatin Calcium 40 mg 12/05/18 22:00 12/05/18 22:21 Lipitor - PO 40 mg HS JOSE ELIAS Administration Furosemide 40 mg 12/06/18 06:00 12/06/18 06:23 Lasix - PO 40 mg BIDLASIX JOSE ELIAS Administration Gabapentin 300 mg 12/05/18 22:00 12/06/18 15:06 Neurontin - PO 300 mg TID JOSE ELIAS Administration Pantoprazole Sodium 80 mg/ 100 mls @ 10 mls/hr 12/06/18 12:00 12/06/18 12:58 Sodium Chloride IVPB 10 mls/hr Q10H JOSE ELIAS Administration 8 MG/HR Insulin Aspart 1 vial 12/05/18 22:00 12/06/18 17:10 Novolog Vial Sliding Scale - SQ Not Given ACHS [facility] Protocol Isosorbide Mononitrate 30 mg 12/06/18 10:00 Imdur - PO DAILY JOSE ELIAS Nitroglycerin 0.4 mg 12/05/18 20:09 Nitrostat - SL Q5M PRN FOR CHEST PAIN Polyethylene Glycol 17 gm 12/06/18 10:00 12/06/18 10:18 Miralax (For Daily Use) - PO 17 grams DAILY JOSE ELIAS Administration Ramipril 10 mg 12/06/18 10:00 Altace - PO DAILY JOSE ELIAS Tamsulosin HCl 0.4 mg 12/06/18 08:30 12/06/18 10:18 Flomax - PO 0.4 mg DAILY@0830 JOSE ELIAS Administration ASSESSMENT AND PLAN: 83 year old female with HTN, HLD, DM 2, CAD s/p VT s/p PCI/Stent (on Aspirin, Brilinta), Chronic Diastolic CHF, CKD 3, s/p chlecystecomy/hysterectomy/ tonsillectomy from [facility], currently on Augmentin for infected wound on R great toe, now presents with intermittent substernal chest pain, initially on exertion, now at rest. Also complained of worsening LE edema. 1. Angina secondary to Acute Blood Loss Anemia secondary to GI bleed, likely Upper. History of CAD s/p VT/PCI/Stent to LAD - on Aspirin/Brilinta ECG - no acute changes. H/H down to 6.6/20.9 from 10.4/32.1 in 09/14. Stool Guaic positive On Protonix drip. GI consulted for EGD - as per Dr. Mata, EGD is not urgent and can wait until Saturday 12/09. I expressed that I was concerned regarding her cardiac history and possibility of an acute bleed causing dangerous drop in H/H with resulting possible VT/coronary event. The plan for EGD in greater than 3 days from admission was maintained. Aspirin/Brilinta held. Iron/Ferritin pending Transfusion of 2 units PRBCs ongoing. Will monitor H/H Currently pain free. 2. HTN - Normally on Norvasc, Ramipril, imdur 3. HLD - normally on Lipitor. 4. DM 2 - Novolog sliding scale. 5. Chronic Diastolic HF Chronic fluid retention in LEs sec to venous stasis with dermatitis. No evidence of acute decompensation of HF. nromally on lasix 40mg BID at home, will hold. Will monitor closely given transfusion of blood products with Lasix prn. Echo pending. 6. R great toe infection - will change Augmentin to IV Unasyn as patient is NPO. DVT Px - SCDs.
--- NOTE | 2018-12-06 17:51 | CON.GI ---
Consult Consult Specialty:: GI Referred by:: Dr. Toledo Reason for Consultation:: Anemia - History of Present Illness Chief Complaint: Anemia History of Present Illness: Patient is an 83 y/o female with past medical history of HTN, HLD, CAD s/p stent x 1 on Brilinta and chronic aspirin use. Patient presented to ER with complaints of chest pain associated with epigastric pain, denies nausea, vomiting, rectal bleeding, or melena. No recent weight loss. In ER noted with Hg 6.0 and stool guaiac positive. Presently receiving 2U PRBC transfusion. Reviewed cardiology consult. - History Source History Provided By: Patient Limitations to Obtaining History: No Limitations - Past Medical History COOKER TENDER: Yes: Peripheral Neuropathy Cardio/Vascular: Yes: CAD, CHF, HTN, CA (10/02/2015 resulting in a single stent insertion) Gastrointestinal: Yes: Diverticulosis, Peptic Ulcer Disease, Other (colon polyp) Hepatobiliary: Yes: Cholecystitis (prior cholecystitis s/p perc roxana tube from 11/2013-02/2014), Choledocholithiasis (resolved spontaneously) Renal/: Yes: Renal Failure (on prior admission- resolved) ...: No Rheumatology: Yes: Gout Endocrine: Yes: Diabetes Mellitus (c/b peripheral neuropathy) Dermatology: Yes: 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 History of Recent Travel: No Home Medications - Allergies Allergies/Adverse Reactions: Allergies Allergy/AdvReac Type Severity Reaction Status Date / Time No Known Drug Allergies Allergy Verified 12/05/18 15:11 TOMATO SAUCE ONLY Allergy Uncoded 12/05/18 15:11 - Home Medications Home Medications: Ambulatory Orders Acetaminophen [Tylenol] 650 mg PO BID PRN 08/07/17 Amlodipine Besylate 5 mg PO DAILY 08/07/17 Ammonium Lactate [Skin Treatment] 1 applic TP DAILY 08/07/17 Ascorbic Acid [Vitamin C -] 500 mg PO DAILY 08/07/17 Aspirin [ASA -] 81 mg PO DAILY 08/07/17 Atorvastatin Ca [Lipitor] 40 mg PO HS 08/07/17 Bacitracin - [Bacitracin Topical Ointment -] 1 applic TP PRN PRN 08/07/17 Gabapentin 300 mg PO BID 08/07/17 Hypromellose 0.5% Opth Soln [Artificial Tears] 1 drop OU QID PRN 08/07/17 Insulin Glargine,Hum.rec.anlog [Lantus (10mL VIAL) -] 35 units SQ HS 08/07/17 Isosorbide Mononitrate [Isosorbide Mononitrate ER] 30 mg PO DAILY 08/07/17 Loratadine [Claritin] 10 mg PO DAILY 08/07/17 Multivitamin [One Daily] 1 each PO DAILY 08/07/17 Pantoprazole Sodium 40 mg PO BID 08/07/17 Polyethylene Glycol 3350 [Miralax 119 gm Btl -] 17 gm PO DAILY 08/07/17 Ramipril 10 mg PO DAILY 08/07/17 Ticagrelor [Brilinta] 60 mg PO BID 08/07/17 Furosemide [Lasix -] 40 mg PO BID #14 tablet MDD 2 08/14/17 Insulin (Levemir) [Levemir Vial] 15 units SQ AM ml 08/14/17 Sitagliptin Phosphate [Januvia -] 25 mg PO DAILY@0700 tab 08/14/17 Tamsulosin HCl [Flomax -] 0.4 mg PO DAILY@0830 #30 cap.er.24h MDD 1 08/14/17 predniSONE [Deltasone -] 2.5 mg PO DAILY #7 tablet MDD 2 08/14/17 Amox-Tr/K Cl [Augmentin - 875Mg Tablet] 1 tab PO BID #20 tablet 12/01/18 Allopurinol [Zyloprim -] 100 mg PO DAILY 12/06/18 Glimepiride 2 mg PO DAILY 12/06/18 Valacyclovir HCl [Valtrex] 1,000 mg PO BID 12/06/18 Family Disease History - Family Disease History Family Disease History: Diabetes: Sister ( of CLOUD rt cirrhosis ), Heart Disease: Father ( at age 33 with CA), Brother ( after CABG), CA: Mother ( of Ovarian cancer at age 57), Other: Sister Review of Systems - Review of Systems Constitutional: reports: No Symptoms Eyes: reports: No Symptoms HENT: reports: No Symptoms Neck: reports: No Symptoms Cardiovascular: reports: Chest Pain Respiratory: reports: No Symptoms Gastrointestinal: reports: Abdominal Pain Genitourinary: reports: No Symptoms Breasts: reports: No Symptoms Reported Musculoskeletal: reports: No Symptoms Integumentary: reports: No Symptoms Neurological: reports: No Symptoms Endocrine: reports: No Symptoms Hematology/Lymphatic: reports: No Symptoms Psychiatric: reports: No Symptoms Physical Exam-GI Vital Signs: Vital Signs Temperature 98.0 F 12/06/18 13:30 Pulse Rate 75 12/06/18 13:30 Respiratory Rate 18 12/06/18 13:30 Blood Pressure 150/55 L 12/06/18 13:30 O2 Sat by Pulse Oximetry (%) 92 L 12/06/18 10:00 Constitutional: Yes: No Distress, Calm Eyes: Yes: Conjunctiva Clear HENT: Yes: Atraumatic Gastrointestinal Inspection: Yes: WNL. No: Ascites, Distention, Hernia, Scars, Other ...Auscultate: Yes: Normoactive Bowel Sounds ...Palpate: Yes: Soft, Tenderness (epigastric). No: Firm/Rigid, Guarding, Hepatomegaly, Mass, Pulsatile Mass, Splenomegaly, Tenderness, Epigastium, Tenderness, Rebound, Other ...Percussion: Yes: Tympanitic Labs: CBC, BMP 12/06/18 16:00 12/06/18 05:30 INR, PTT INR 1.01 (0.83-1.09) 12/05/18 15:40 Imaging - Results Chest X-ray: Report Reviewed Problem List - Problems (1) GI bleed Assessment/Plan: R/O PUD R> Protonix drip transfuse if Hg <8.0 scheduled for EGD on 12/09/18 Code(s): K92.2 - GASTROINTESTINAL HEMORRHAGE, UNSPECIFIED
[2018-12-06] MEDS: AMPICILLIN NA/SULBACTAM NA 3 GM in SODIUM CHLORIDE 100 ML IVPB SCH (19:34)
[2018-12-06] MEDS: ATORVASTATIN CA 40 MG TABLET (FP) PO SCH (21:41)
[2018-12-06 23:30] LABS: HEMATOCRIT 29.4 % (32.4-45.2); HEMOGLOBIN 9.4 GM/dL (10.7-15.3); MEAN CELL VOLUME 81.3 fl (80-96); MEAN PLT VOLUME 8.6 fl (7.5-11.1); PLATELET COUNT 331 K/MM3 (134-434); RBC 3.62 M/mm3 (3.60-5.2); RDW 17.3 % (11.6-15.6); WHITE BLOOD COUNT 11.4 K/mm3 (4.0-10.0)
[2018-12-07] MEDS: AMPICILLIN NA/SULBACTAM NA 3 GM in SODIUM CHLORIDE 100 ML IVPB SCH ×3 (01:40→21:21)
[2018-12-07 04:12] LABS: SERUM IRON SATURATION 3 % (15-55); TOTAL IRON BINDING CAPACITY 337 ug/dL (250-450); UIBC 327 ug/dL (118-369)
[2018-12-07] MEDS: GABAPENTIN 300 MG CAPSULE (FP) PO SCH ×3 (05:26→21:22)
[2018-12-07] MEDS ORDERED: FUROSEMIDE 40 MG/4 ML INJECTABLE VIAL IVPUSH ONE (05:29)
[2018-12-07] MEDS: INSULIN SLIDING SCALE (NOVOLOG) 1 VIAL SQ SCH ×4 (06:02→21:22)
[2018-12-07 06:41] LABS: HEMATOCRIT 29.3 % (32.4-45.2); HEMOGLOBIN 9.5 GM/dL (10.7-15.3); MCHC 32.3 g/dl (32.0-36.0); MEAN CELL VOLUME 80.5 fl (80-96); MEAN PLT VOLUME 8.8 fl (7.5-11.1); PLATELET COUNT 330 K/MM3 (134-434); RBC 3.64 M/mm3 (3.60-5.2); RDW 17.3 % (11.6-15.6); WHITE BLOOD COUNT 9.2 K/mm3 (4.0-10.0)
[2018-12-07 07:14] LABS: ALK PHOS 166 U/L (45-117); ANION GAP 8 MMOL/L (8-16); BLOOD UREA NITROGEN 15 mg/dL (7-18); CALCIUM 8.1 mg/dL (8.5-10.1); CHLORIDE 105 mmol/L (98-107); CO2 28 mmol/L (21-32); CREATININE 1.1 mg/dL (0.55-1.3); GLUCOSE,RANDOM 128 mg/dL (74-106); MAGNESIUM 2.4 mg/dL (1.8-2.4); PHOSPHOROUS 3.7 mg/dL (2.5-4.9); POTASSIUM 3.8 mmol/L (3.5-5.1); SGOT/AST 12 U/L (15-37); SGPT/ALT 13 U/L (13-61); SODIUM 141 mmol/L (136-145); TOT PROT 6.3 g/dl (6.4-8.2)
--- NOTE | 2018-12-07 08:13 | PN ---
Progress Note, Physician Chief Complaint: cp/sob History of Present Illness: poor historian. ultimately, she settles on the following history: 1) no more chest discomfort like had on DOA 2) feels nauseated at times, and pain in throat only when coughing 3) no sob when laying in bed--when gets oob to go to bathroom she is very sob on the way back and at that time has to sit on edge of bed for 20 min until breathing calms down, then can lay flat with no mor esob no palpit - Current Medication List Current Medications: Active Medications Amlodipine Besylate (Norvasc -) 5 mg PO DAILY [facility] Atorvastatin Calcium (Lipitor -) 40 mg PO HS [facility] Last Admin: 12/06/18 21:41 Dose: 40 mg Furosemide (Lasix -) 40 mg PO BIDLASIX [facility] Last Admin: 12/06/18 06:23 Dose: 40 mg Furosemide (Lasix Injection -) 20 mg IVPUSH ONCE ONE Stop: 12/07/18 05:30 Last Admin: 12/07/18 05:44 Dose: 20 mg Gabapentin (Neurontin -) 300 mg PO TID [facility] Last Admin: 12/07/18 05:26 Dose: 300 mg Pantoprazole Sodium 80 mg/ (Sodium Chloride) 100 mls @ 10 mls/hr IVPB Q10H [facility] Last Admin: 12/06/18 21:41 Dose: 10 mls/hr Ampicillin Sodium/Sulbactam (Sodium 3 gm/ Sodium Chloride) 100 mls @ 200 mls/ hr IVPB Q8H-IV JOSE ELIAS Ampicillin Sodium/Sulbactam (Sodium 3 gm/ Sodium Chloride) 100 mls @ 200 mls/ hr IVPB Q8H-IV JOSE ELIAS Stop: 12/07/18 10:29 Last Admin: 12/07/18 01:40 Dose: 200 mls/hr Insulin Aspart (Novolog Vial Sliding Scale -) 1 vial SQ ACHS [facility]; Protocol Last Admin: 12/07/18 06:02 Dose: Not Given Isosorbide Mononitrate (Imdur -) 30 mg PO DAILY [facility] Nitroglycerin (Nitrostat -) 0.4 mg SL Q5M PRN PRN Reason: FOR CHEST PAIN Polyethylene Glycol (Miralax (For Daily Use) -) 17 gm PO DAILY [facility] Last Admin: 12/06/18 10:18 Dose: 17 grams Ramipril (Altace -) 10 mg PO DAILY JOSE ELIAS - Objective Vital Signs: Vital Signs Temperature 98.5 F 12/07/18 06:00 Pulse Rate 83 12/07/18 06:00 Respiratory Rate 20 12/07/18 06:00 Blood Pressure 131/58 L 12/07/18 06:00 O2 Sat by Pulse Oximetry (%) 98 12/06/18 22:00 Constitutional: Yes: Well Nourished, No Distress, Calm Cardiovascular: Yes: Regular Rate and Rhythm, S1, S2. No: JVD (?--in chair, acces muscle use confounds), Gallop, Murmur Respiratory: Yes: Regular, Rales (bases). No: Accessory Muscle Use Extremities: No: Cold Edema: No Neurological: Yes: Alert, Oriented Psychiatric: No: Agitated Labs: CBC, BMP 12/07/18 05:30 12/07/18 05:30 INR, PTT INR 1.01 (0.83-1.09) 12/05/18 15:40 Assessment/Plan 06/2017 mibi: Stress test + for moderate intensity ischemia of posterior and lateral wall. ? TID LH 10/12: DAYANA to mLAD, PTCA of D1. residual 50-60% mRCA. OM1 chronically occluded fills via LAD collaterals echo 09/2017: tds; nl lv/rv, no sig valve path Echo 04/12: TDS. normal overall LVSF, can't r/o RWMAs. mild-mod RVE with mild hypo. mild-mod TR. RVSP 30-40 Echo 08/11: nl LV, nl RV, mild LAE, valve fxn WNL CXR: clear lungs/pleura ECG: sr, no ischemic changes tele: NSR a/p: chest pain: -no signs acs or chf -trop neg x2, ECG non-ischemic -06/2017 mibi was reviewed by dr miller and felt to show only minimal inferolateral ischemia in area of patient's known residual disease, no significant TID is seen. -suspect symptoms were due to severe anemia, monitor symptoms after prbcs sob: -c/o sob when gets oob to bathroom, then orthopnea when returns to bed which resolves on its own -? JVD--tds exam -rales at bases. repeat CXR and repeat BNP -on lasix 40 po bid at home. received 40 IV x 2 doses yesterday. 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 HTN: -stable on current meds -same plan
[2018-12-07] MEDS: ISOSORBIDE MONONITRATE 30 MG TAB.SR.24H (FP) PO SCH (10:30)
[2018-12-07] MEDS: RAMIPRIL 5 MG CAPSULE (FP) PO SCH (10:30)
[2018-12-07] MEDS: FERROUS SO4 325 MG TABLET (FP) PO SCH ×2 (10:30→16:58)
[2018-12-07] MEDS: PANTOPRAZOLE SODIUM 80 MG in SODIUM CHLORIDE 100 ML IVPB SCH ×2 (10:30→17:15)
[2018-12-07] MEDS: amLODIPine BESYLATE 5 MG TABLET (FP) PO SCH (10:31)
[2018-12-07] MEDS: POLYETHYLENE GLYCOL 3350 119 GM BTL PO SCH (10:31)
[2018-12-07] MEDS: DOCUSATE SODIUM 100 MG CAPSULE (FP) PO SCH (10:31)
--- NOTE | 2018-12-07 12:36 | PN ---
Teaching Attending Note Name of Resident: Marjorie Purvis ATTENDING PHYSICIAN STATEMENT I saw and evaluated the patient. I reviewed the resident's note and discussed the case with the resident. I agree with the resident's findings and plan as documented. SUBJECTIVE: Feels intermittent SOB, no further CP. Denies BRBPR or hematemesis. No fever/chills. OBJECTIVE: Afebrile, Hemodynamically Stable. Last Vital Signs Temp Pulse Resp BP Pulse Ox 98.5 F 83 20 131/58 L 95 12/07/18 06:00 12/07/18 06:00 12/07/18 10:00 12/07/18 06:00 12/07/18 10:00 Heart - S1, S2, RRR Lungs - bi-basal crackles. Abdomen - mild distension, soft, mild generalized tenderness, bowel sounds normal. Extremities - No calf tenderness. Edema ++. Dermatitis+ Laboratory Results - last 24 hr 12/05/18 12/06/18 12/06/18 19:50 05:30 16:00 WBC 9.2 RBC 3.81 Hgb 9.6 L Hct 31.7 L D MCV 83.2 MCH 25.2 L MCHC 30.3 L RDW 17.9 H Plt Count 339 MPV 9.1 Sodium Potassium Chloride Carbon Dioxide Anion Gap BUN Creatinine Creat Clearance w eGFR POC Glucometer Random Glucose Calcium Phosphorus Magnesium Iron 10 L TIBC 337 Iron Saturation 3 L Total Bilirubin AST ALT Alkaline Phosphatase Total Protein Albumin Blood Type A POSITIVE Antibody Screen Negative Crossmatch See Detail 12/06/18 12/06/18 12/06/18 16:41 20:51 23:00 WBC 11.4 H RBC 3.62 Hgb 9.4 L Hct 29.4 L MCV 81.3 MCH 26.0 MCHC 32.0 RDW 17.3 H Plt Count 331 MPV 8.6 Sodium Potassium Chloride Carbon Dioxide Anion Gap BUN Creatinine Creat Clearance w eGFR POC Glucometer 117 156 Random Glucose Calcium Phosphorus Magnesium Iron TIBC Iron Saturation Total Bilirubin AST ALT Alkaline Phosphatase Total Protein Albumin Blood Type Antibody Screen Crossmatch 12/07/18 12/07/18 12/07/18 05:23 05:30 05:30 WBC 9.2 RBC 3.64 Hgb 9.5 L Hct 29.3 L MCV 80.5 MCH 26.0 MCHC 32.3 RDW 17.3 H Plt Count 330 MPV 8.8 Sodium 141 Potassium 3.8 Chloride 105 Carbon Dioxide 28 Anion Gap 8 BUN 15 Creatinine 1.1 Creat Clearance w eGFR 47.21 POC Glucometer 129 Random Glucose 128 H Calcium 8.1 L Phosphorus 3.7 Magnesium 2.4 Iron TIBC Iron Saturation Total Bilirubin 1.0 AST 12 L ALT 13 Alkaline Phosphatase 166 H Total Protein 6.3 L Albumin 3.0 L Blood Type Antibody Screen Crossmatch Current Medications Generic Name Dose Route Start Last Admin Trade Name Freq PRN Reason Stop Dose Admin Amlodipine Besylate 5 mg 12/06/18 10:00 12/07/18 10:31 Norvasc - PO 5 mg DAILY JOSE ELIAS Administration Atorvastatin Calcium 40 mg 12/05/18 22:00 12/06/18 21:41 Lipitor - PO 40 mg HS JOSE ELIAS Administration Docusate Sodium 100 mg 12/07/18 10:00 12/07/18 10:31 Colace - PO 100 mg DAILY JOSE ELIAS Administration Ferrous Sulfate 325 mg 12/07/18 10:00 12/07/18 10:30 Feosol - PO 325 mg BIDWM JOSE ELIAS Administration Furosemide 40 mg 12/07/18 12:15 Lasix Injection - IVPUSH BID@0600,1400 JOSE ELIAS Gabapentin 300 mg 12/05/18 22:00 12/07/18 05:26 Neurontin - PO 300 mg TID JOSE ELIAS Administration Pantoprazole Sodium 80 mg/ 100 mls @ 10 mls/hr 12/06/18 12:00 12/07/18 10:30 Sodium Chloride IVPB 10 mls/hr Q10H JOSE ELIAS Administration 8 MG/HR Ampicillin Sodium/Sulbactam 100 mls @ 200 mls/hr 12/06/18 18:00 Sodium 3 gm/ Sodium Chloride IVPB Q8H-IV JOSE ELIAS Insulin Aspart 1 vial 12/06/18 22:00 12/07/18 12:15 Novolog Vial Sliding Scale - SQ Not Given ACHS [facility] Protocol Isosorbide Mononitrate 30 mg 12/06/18 10:00 12/07/18 10:30 Imdur - PO 30 mg DAILY JOSE ELIAS Administration Nitroglycerin 0.4 mg 12/05/18 20:09 Nitrostat - SL Q5M PRN FOR CHEST PAIN Polyethylene Glycol 17 gm 12/06/18 10:00 12/07/18 10:31 Miralax (For Daily Use) - PO 17 grams DAILY JOSE ELIAS Administration Ramipril 10 mg 12/06/18 10:00 12/07/18 10:30 Altace - PO 10 mg DAILY JOSE ELIAS Administration ASSESSMENT AND PLAN: 83 year old female with HTN, HLD, DM 2, CAD s/p ID s/p PCI/Stent (on Aspirin, Brilinta), Chronic Diastolic CHF, CKD 3, s/p chlecystecomy/hysterectomy/ tonsillectomy from [facility], currently on Augmentin for infected wound on R great toe, now presents with intermittent substernal chest pain, initially on exertion, now at rest. Also complained of worsening LE edema. 1. Angina secondary to Acute Blood Loss Anemia secondary to GI bleed, likely Upper. History of CAD s/p ID/PCI/Stent to LAD - on Aspirin/Brilinta ECG - no acute changes. H/H 9.5/29.3 from 6.6/20.9 s/p 2 units PRBCs (with lasix IV coverage) Stool Guaic positive GI consulted for EGD - scheduled for Saturday 12/09. Transitioned from Protonix drip to Protonix IV 40mg BID Aspirin/Brilinta held. No need for further Brilinta as per Cardio given time elapsed from stent placement. Iron 10/Ferritin 7.9 - started on FeSO4. Currently chest pain free. 2. HTN - Continue Norvasc, Ramipril, imdur 3. HLD - normally on Lipitor. 4. DM 2 - will cover with Novolog sliding scale. 5. Chronic Diastolic HF Chronic fluid retention in LEs sec to venous stasis with dermatitis. Required IV Lasix overnight s/p blood transfusions, continued on Lasix IV 40mg BID as per Cardiology (normally on 40mg orally BID at home) Echo - aneurysmal atrial septum Cardiology following. 6. R great toe infection - will change Augmentin to IV Unasyn as patient is NPO. DVT Px - SCDs.
[2018-12-07] MEDS: FUROSEMIDE 40 MG/4 ML INJECTABLE VIAL IVPUSH SCH ×2 (13:41→16:58)
[2018-12-07 14:12] LABS: N-TERMINAL BNP 414.8 pg/ml (5-450)
--- NOTE | 2018-12-07 14:54 | PN ---
Progress Note (short form) - Note Progress Note: No bleeding noted. Pt still complains of exertional dyspnea, no chest pain. She denies seeing any recent rectal bleeding but reports that she did lose "a lot of blood" when she lost her toenail on 12/01/18. She said "there was blood all over the bathroom" when it happened. No labs were obtained at that time. Continue with holding Brilinta. For EGD Sunday.
--- NOTE | 2018-12-07 18:55 | PN ---
Physical Exam: SUBJECTIVE: Patient seen and examined. Received 2units PRBCs yesterday with iv lasix 40mg x2 yesterday and 20mg lasix iv this am. Pt reports has PND at night in past, had similar episode yesterday which improved when she sat up in bed. Seen by GI yesterday, protonix drip stopped and patient started on iv protonix bid and a liquid diet. Will likely be scoped on 12/09. No more chest pain, SOB improved this am. Pt reports up to 200-300ml blood loss about 1 week prior to this admission when she had traumatic loss of her toe nail on R big toe. She had declined admission and was getting PO augmentin and outpatient dressing for toe prior to current admission OBJECTIVE: Vital Signs Period Temp Pulse Resp BP Sys/Emerson Pulse Ox Last 24 Hr 97.9 F-99.7 F 66-83 - 105-131/48-68 95-98 Vital Signs Temp 97.9 F 12/07/18 14:18 Pulse 66 12/07/18 14:18 Resp 18 12/07/18 14:18 BP 105/48 L 12/07/18 14:18 Pulse Ox 95 12/07/18 10:00 Intake & Output 12/06/18 12/07/18 12/07/18 23:59 11:59 23:59 Intake Total 820 120 450 Output Total 500 Balance 820 -380 450 Weight 87.09 kg Intake: IV 20 70 LW 22 12/06/2018 10 RW 22 12/06/2018 10 protonix gtt 70 IVPB 50 Oral 100 450 Packed Cells 700 Output: Urine 500 Void 500 Other: Voiding Method Toilet Toilet Bedside Commode # Unmeasured Voids Void 2 2 Bowel Movement No No Weight Measurement Method Standing Scale GENERAL: The patient is awake, alert, and fully oriented, in no acute distress. EYES: PERRL, extraocular movements intact, sclera anicteric, conjunctiva clear. Could not appreciate conjuctival pallor ENT: moist mucous membranes. NC NECK: Trachea midline, full range of motion, supple. LUNGS: Faint scattered crackles HEART: Regular rate and rhythm, S1, S2 without murmur, rub or gallop. ABDOMEN: Soft, abdominal tenderness, some abdominal distension, hypoactive bowel sounds, EXTREMITIES: 2+ pulses, warm, well-perfused, chronic venous stasis with non pitting edema bilaterally edema, venous dermatitis, excoriation on R moreno, R big toe with absent nail, pink clean wound with and swollen R big toe. No obvious pus or bleeding NEUROLOGICAL: Cranial nerves II through XII grossly intact. Normal speech, gait not observed. CBC, BMP 12/07/18 05:30 12/07/18 05:30 Laboratory Results - last 24 hr 12/06/18 12/06/18 12/06/18 05:30 20:51 23:00 WBC 11.4 H RBC 3.62 Hgb 9.4 L Hct 29.4 L MCV 81.3 MCH 26.0 MCHC 32.0 RDW 17.3 H Plt Count 331 MPV 8.6 Sodium Potassium Chloride Carbon Dioxide Anion Gap BUN Creatinine Creat Clearance w eGFR POC Glucometer 156 Random Glucose Calcium Phosphorus Magnesium Iron 10 L TIBC 337 Iron Saturation 3 L Total Bilirubin AST ALT Alkaline Phosphatase B-Natriuretic Peptide Total Protein Albumin 12/07/18 12/07/18 12/07/18 05:23 05:30 05:30 WBC 9.2 RBC 3.64 Hgb 9.5 L Hct 29.3 L MCV 80.5 MCH 26.0 MCHC 32.3 RDW 17.3 H Plt Count 330 MPV 8.8 Sodium 141 Potassium 3.8 Chloride 105 Carbon Dioxide 28 Anion Gap 8 BUN 15 Creatinine 1.1 Creat Clearance w eGFR 47.21 POC Glucometer 129 Random Glucose 128 H Calcium 8.1 L Phosphorus 3.7 Magnesium 2.4 Iron TIBC Iron Saturation Total Bilirubin 1.0 AST 12 L ALT 13 Alkaline Phosphatase 166 H B-Natriuretic Peptide 414.8 Total Protein 6.3 L Albumin 3.0 L 12/07/18 12/07/18 12/07/18 12:14 13:30 16:56 WBC RBC Hgb Hct MCV MCH MCHC RDW Plt Count MPV Sodium Potassium Chloride Carbon Dioxide Anion Gap BUN Creatinine Creat Clearance w eGFR POC Glucometer 146 189 Random Glucose Calcium Phosphorus Magnesium Iron TIBC Iron Saturation Total Bilirubin AST ALT Alkaline Phosphatase B-Natriuretic Peptide 443.2 Total Protein Albumin Active Medications Generic Name Dose Route Start Last Admin Trade Name Freq PRN Reason Stop Dose Admin Amlodipine Besylate 5 mg 12/06/18 10:00 12/07/18 10:31 Norvasc - PO 5 mg DAILY JOSE ELIAS Administration Atorvastatin Calcium 40 mg 12/05/18 22:00 12/06/18 21:41 Lipitor - PO 40 mg HS JOSE ELIAS Administration Docusate Sodium 100 mg 12/07/18 10:00 12/07/18 10:31 Colace - PO 100 mg DAILY JOSE ELIAS Administration Ferrous Sulfate 325 mg 12/07/18 10:00 12/07/18 16:58 Feosol - PO 325 mg BIDWM JOSE ELIAS Administration Furosemide 40 mg 12/07/18 12:15 12/07/18 16:58 Lasix Injection - IVPUSH 40 mg BID@0600,1400 JOSE ELIAS Administration Gabapentin 300 mg 12/05/18 22:00 12/07/18 13:42 Neurontin - PO 300 mg TID JOSE ELIAS Administration Pantoprazole Sodium 80 mg/ 100 mls @ 10 mls/hr 12/06/18 12:00 12/07/18 17:15 Sodium Chloride IVPB Not Given Q10H JOSE ELIAS 8 MG/HR Ampicillin Sodium/Sulbactam 100 mls @ 200 mls/hr 12/06/18 18:00 Sodium 3 gm/ Sodium Chloride IVPB Q8H-IV JOSE ELIAS Ampicillin Sodium/Sulbactam 100 mls @ 200 mls/hr 12/07/18 19:00 Sodium 3 gm/ Sodium Chloride IVPB 12/08/18 10:29 Q8H-IV JOSE ELIAS Insulin Aspart 1 vial 12/06/18 22:00 12/07/18 16:58 Novolog Vial Sliding Scale - SQ 1 unit ACHS JOSE ELIAS Administration Protocol Isosorbide Mononitrate 30 mg 12/06/18 10:00 12/07/18 10:30 Imdur - PO 30 mg DAILY JOSE ELIAS Administration Nitroglycerin 0.4 mg 12/05/18 20:09 Nitrostat - SL Q5M PRN FOR CHEST PAIN Polyethylene Glycol 17 gm 12/06/18 10:00 12/07/18 10:31 Miralax (For Daily Use) - PO 17 grams DAILY JOSE ELIAS Administration Ramipril 10 mg 12/06/18 10:00 12/07/18 10:30 Altace - PO 10 mg DAILY JOSE ELIAS Administration Ambulatory Orders Acetaminophen [Tylenol] 650 mg PO BID PRN 08/07/17 Amlodipine Besylate 5 mg PO DAILY 08/07/17 Ammonium Lactate [Skin Treatment] 1 applic TP DAILY 08/07/17 Ascorbic Acid [Vitamin C -] 500 mg PO DAILY 08/07/17 Aspirin [ASA -] 81 mg PO DAILY 08/07/17 Atorvastatin Ca [Lipitor] 40 mg PO HS 08/07/17 Bacitracin - [Bacitracin Topical Ointment -] 1 applic TP PRN PRN 08/07/17 Gabapentin 300 mg PO BID 08/07/17 Hypromellose 0.5% Opth Soln [Artificial Tears] 1 drop OU QID PRN 08/07/17 Insulin Glargine,Hum.rec.anlog [Lantus (10mL VIAL) -] 35 units SQ HS 08/07/17 Isosorbide Mononitrate [Isosorbide Mononitrate ER] 30 mg PO DAILY 08/07/17 Loratadine [Claritin] 10 mg PO DAILY 08/07/17 Multivitamin [One Daily] 1 each PO DAILY 08/07/17 Pantoprazole Sodium 40 mg PO BID 08/07/17 Polyethylene Glycol 3350 [Miralax 119 gm Btl -] 17 gm PO DAILY 08/07/17 Ramipril 10 mg PO DAILY 08/07/17 Ticagrelor [Brilinta] 60 mg PO BID 08/07/17 Furosemide [Lasix -] 40 mg PO BID #14 tablet MDD 2 08/14/17 Insulin (Levemir) [Levemir Vial] 15 units SQ AM ml 08/14/17 Sitagliptin Phosphate [Januvia -] 25 mg PO DAILY@0700 tab 08/14/17 Tamsulosin HCl [Flomax -] 0.4 mg PO DAILY@0830 #30 cap.er.24h MDD 1 08/14/17 predniSONE [Deltasone -] 2.5 mg PO DAILY #7 tablet MDD 2 08/14/17 Amox-Tr/K Cl [Augmentin - 875Mg Tablet] 1 tab PO BID #20 tablet 12/01/18 Allopurinol [Zyloprim -] 100 mg PO DAILY 12/06/18 Glimepiride 2 mg PO DAILY 12/06/18 Valacyclovir HCl [Valtrex] 1,000 mg PO BID 12/06/18 ASSESSMENT/PLAN: Pt is an 83 yo F with history of hypertension, hyperlipidemia, diabetes mellitus , nasal skin cancr, coronary artery disease, NSTEMI and myocardial infarction s /p coronary stent (on Apirin, Brilinta), HFpEF, chronic kidney disease, GERD presented with chest tightness for past three days. Chest pain -s/p 2uPRBCs and iv 100mg lasix -Likely secondary to symptomatic anemia- resolved -Pain improved with Nitroglycerin administered in the ED, in addition to Aspirin 162 mg. -EKG shows normal sinus rhythm, 1st degree AV block. No ischemic ST-T wave changes. -Troponin- I negative x2 -Follow cardiac ECHO- pending -Duplex of bilateral lower extremities negative for DVT -Chest radiograph shows no acute pathology. -Cardiolgy consult (Dr. Murguia) appreciated -Telemetry monitoring. Symptomatic Anemia -s/p 2 units PRBC , repeat CBC- appropriate response-9.5 this am -Hb 7.5/ Hct 24.4 upon admission decreased to Hb 6.6/ Hct 20.9. Microcytic at 79.5. Last CBC (08/2017) shows Hb 10.4, Hct 32.1, MCV 92.4. - Hx of bleed after R toe injury 1 week ago up to 200-300mls reported per pt, could have contributed to acute drop -Patient does not appear to be actively bleeding. No misha blood noted upon rectal exam. However, stool positive for occult blood and pt with hx of GERD, for EGD probably on Sunday -Given patient's history of myocardial infarct, and coronary artery disease, Hb transfusion goal should be above 8.0grams/ dL. -Protonix 40mg IV bid per GI -Follow iron studies; Fe-10 (low), iron saturation- 3L (low), transferrin, [id number] consistent with iron def- Feosol bid started -Bowel regimen- miralax, colace -Gastroenterology consult (Dr. Mata) Coronary artery disease, history of HI s/p stent -Aspirin and Brilinta held in light of anemia. -Upon discharge will reinstate only Aspirin 81mg daily, and discontinue Brilinta, per cardiology recommendations. -Cardiology consult (Dr. Murguia) appreciated. Diabetes mellitus -Insulin sliding scale ACHS -BGM ACHS Hypertension -Resumed home per cardiology antihypertensives (Norvasc, Ramipril, Imdur) -resumed home Lasix Hyperlipidemia -Atorvastatin 40mg PO HS Right big toe post-traumatic ulcer -Continue Unasyn for right toe nail infection secondary to traumatic removal of toe-nail. - Received 24hr dose, requires ID for renewal -ID- Dr Pat consulted -Dr Hernandez- Consulted for venous stasis and R big toe ulcer Prophylaxis -SCDS- s/p blood transfusion -Protonix iv bid - liquid diet per GI Disposition -Continue care in Telemetry floor. -For EGD Sunday Visit type - Emergency Visit Emergency Visit: Yes ED Registration Date: 12/05/18 Care time: The patient presented to the Emergency Department on the above date and was hospitalized for further evaluation of their emergent condition. - New Patient This patient is new to me today: No - Critical Care Critical Care patient: No - Discharge Referral Referred to [facility] Med P.C.: No
[2018-12-07] MEDS: ATORVASTATIN CA 40 MG TABLET (FP) PO SCH (21:22)
[2018-12-08] MEDS: AMPICILLIN NA/SULBACTAM NA 3 GM in SODIUM CHLORIDE 100 ML IVPB SCH ×3 (01:16→17:13)
[2018-12-08] MEDS: PANTOPRAZOLE SODIUM 80 MG in SODIUM CHLORIDE 100 ML IVPB SCH ×3 (05:26→23:46)
[2018-12-08 05:56] LABS: BASO % 0.3 % (0-2.0); EOS % 3.7 % (0-4.5); HEMATOCRIT 26.3 % (32.4-45.2); HEMOGLOBIN 8.5 GM/dL (10.7-15.3); LYMPH % 6.3 % (8-40); MCH 26.1 pg (25.7-33.7); MCHC 32.3 g/dl (32.0-36.0); MEAN CELL VOLUME 80.8 fl (80-96); MEAN PLT VOLUME 8.8 fl (7.5-11.1); MONO % 7.6 % (3.8-10.2); NEUT % 82.1 % (42.8-82.8); PLATELET COUNT 300 K/MM3 (134-434); RBC 3.25 M/mm3 (3.60-5.2); RDW 18.1 % (11.6-15.6); WHITE BLOOD COUNT 10.7 K/mm3 (4.0-10.0)
[2018-12-08] MEDS: INSULIN SLIDING SCALE (NOVOLOG) 1 VIAL SQ SCH ×4 (05:59→21:32)
[2018-12-08 06:13] LABS: INR 1.05 (0.83-1.09); PROTHROMBIN TIME (PATIENT) 12.4 SEC (9.7-13.0)
[2018-12-08] MEDS: FUROSEMIDE 40 MG/4 ML INJECTABLE VIAL IVPUSH SCH (06:20)
[2018-12-08] MEDS: GABAPENTIN 300 MG CAPSULE (FP) PO SCH ×3 (06:20→21:29)
[2018-12-08 06:37] LABS: ALBUMIN 2.7 g/dl (3.4-5.0); ALK PHOS 135 U/L (45-117); ANION GAP 8 MMOL/L (8-16); BILIRUBIN,TOTAL 0.5 mg/dL (0.2-1); BLOOD UREA NITROGEN 22 mg/dL (7-18); CALCIUM 7.5 mg/dL (8.5-10.1); CHLORIDE 100 mmol/L (98-107); CO2 30 mmol/L (21-32); CREATININE 1.9 mg/dL (0.55-1.3); GLUCOSE,RANDOM 110 mg/dL (74-106); MAGNESIUM 2.4 mg/dL (1.8-2.4); PHOSPHOROUS 4.6 mg/dL (2.5-4.9); POTASSIUM 3.8 mmol/L (3.5-5.1); SGOT/AST 10 U/L (15-37); SGPT/ALT 11 U/L (13-61); SODIUM 137 mmol/L (136-145); TOT PROT 5.5 g/dl (6.4-8.2)
--- NOTE | 2018-12-08 09:07 | PN ---
Progress Note (short form) - Note Progress Note: ID consult dictated imp/reccd bleeding from toe last week after she banged her toe seen in ED on 12/01 ,toe xray no fracture, deena contreras augmentin seen by administrative resources associate [place]enail fell [place] admitted on 12/05 with chest pain and noted to be extremely anemic with guaic positive stools s/p blood transfusion for endoscopy in am cellulitis of toe- minimal erythema of toenail bed continue unasyn can switch back to augmentin when taking po can f/u with podiatry at her [facility]F chest pain- per cardiology anemia s/p transfusion , for endoscopy in am please call back if needed Problem List - Problems (1) Cellulitis of toe of right foot Code(s): L03.031 - CELLULITIS OF RIGHT TOE (2) Anemia Code(s): D64.9 - ANEMIA, UNSPECIFIED Qualifiers: Anemia type: unspecified type Qualified Code(s): D64.9 - Anemia, unspecified (3) Chest pain Code(s): R07.9 - CHEST PAIN, UNSPECIFIED Qualifiers: Chest pain type: chest pain due to myocardial ischemia Ischemic chest pain type: unstable angina pectoris Qualified Code(s): I20.0 - Unstable angina
--- NOTE | 2018-12-08 09:21 | PN ---
Progress Note, Physician History of Present Illness: No new CV complaints Feels her dyspnea is improving but still has to sit in chair or edge of bed. Tele: NSR - Current Medication List Current Medications: Active Medications Amlodipine Besylate (Norvasc -) 5 mg PO DAILY [facility] Last Admin: 12/07/18 10:31 Dose: 5 mg Atorvastatin Calcium (Lipitor -) 40 mg PO HS [facility] Last Admin: 12/07/18 21:22 Dose: 40 mg Docusate Sodium (Colace -) 100 mg PO DAILY [facility] Last Admin: 12/07/18 10:31 Dose: 100 mg Ferrous Sulfate (Feosol -) 325 mg PO BIDWM [facility] Last Admin: 12/07/18 16:58 Dose: 325 mg Gabapentin (Neurontin -) 300 mg PO TID [facility] Last Admin: 12/08/18 06:20 Dose: 300 mg Pantoprazole Sodium 80 mg/ (Sodium Chloride) 100 mls @ 10 mls/hr IVPB Q10H [facility] Last Admin: 12/08/18 05:26 Dose: 10 mls/hr Ampicillin Sodium/Sulbactam (Sodium 3 gm/ Sodium Chloride) 100 mls @ 200 mls/ hr IVPB Q8H-IV JOSE ELIAS Ampicillin Sodium/Sulbactam (Sodium 3 gm/ Sodium Chloride) 100 mls @ 200 mls/ hr IVPB Q8H-IV [facility] Stop: 12/08/18 10:29 Last Admin: 12/08/18 01:16 Dose: 200 mls/hr Insulin Aspart (Novolog Vial Sliding Scale -) 1 vial SQ ACHS [facility]; Protocol Last Admin: 12/08/18 05:59 Dose: Not Given Isosorbide Mononitrate (Imdur -) 30 mg PO DAILY [facility] Last Admin: 12/07/18 10:30 Dose: 30 mg Nitroglycerin (Nitrostat -) 0.4 mg SL Q5M PRN PRN Reason: FOR CHEST PAIN Polyethylene Glycol (Miralax (For Daily Use) -) 17 gm PO DAILY [facility] Last Admin: 12/07/18 10:31 Dose: 17 grams Ramipril (Altace -) 10 mg PO DAILY [facility] Last Admin: 12/07/18 10:30 Dose: 10 mg - Objective Vital Signs: Vital Signs Temperature 98.6 F 12/08/18 06:00 Pulse Rate 65 12/08/18 06:00 Respiratory Rate 18 12/08/18 06:00 Blood Pressure 99/47 L 12/08/18 06:00 O2 Sat by Pulse Oximetry (%) 95 12/07/18 21:00 Constitutional: Yes: No Distress, Calm Eyes: Yes: WNL HENT: Yes: WNL Neck: Yes: WNL Cardiovascular: Yes: Murmur (Soft systolic murmur) Respiratory: Yes: Rales, Rhonchi Gastrointestinal: Yes: Normal Bowel Sounds Musculoskeletal: Yes: WNL Extremities: Yes: WNL Edema: Yes Edema: LLE: 2+, RLE: 2+ Labs: CBC, BMP 12/08/18 05:30 12/08/18 05:30 INR, PTT INR 1.05 (0.83-1.09) 12/08/18 05:30 Assessment/Plan chest pain: -no signs acs or chf -trop neg x2, ECG non-ischemic -06/2017 mibi was reviewed by dr miller and felt to show only minimal inferolateral ischemia in area of patient's known residual disease, no significant TID is seen. -suspect symptoms were due to severe anemia, monitor symptoms after prbcs sob: -c/o sob when gets oob to bathroom, then orthopnea when returns to bed which resolves on its own -? JVD--tds exam -rales at bases. repeat CXR and repeat BNP -on lasix 40 po bid at home. received 40 IV x 2 doses yesterday. 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
[2018-12-08] MEDS: RAMIPRIL 5 MG CAPSULE (FP) PO SCH (10:13)
[2018-12-08] MEDS: amLODIPine BESYLATE 5 MG TABLET (FP) PO SCH (10:14)
[2018-12-08] MEDS: DOCUSATE SODIUM 100 MG CAPSULE (FP) PO SCH (10:14)
[2018-12-08] MEDS: ISOSORBIDE MONONITRATE 30 MG TAB.SR.24H (FP) PO SCH (10:14)
[2018-12-08] MEDS: FERROUS SO4 325 MG TABLET (FP) PO SCH ×2 (10:14→17:13)
[2018-12-08] MEDS: POLYETHYLENE GLYCOL 3350 119 GM BTL PO SCH (10:20)
[2018-12-08] MEDS ORDERED: PT OWN MED DRAWER 7, Y5N ONE ×2 (10:22→16:52)
--- NOTE | 2018-12-08 16:38 | PN ---
Progress Note (short form) - Note Progress Note: SUBJECTIVE: Still feels intermittent SOB, no further CP. Denies BRBPR or hematemesis. No fever/chills. OBJECTIVE: Afebrile, Hemodynamically Stable. Last Vital Signs Temp Pulse Resp BP Pulse Ox 98.1 F 60 18 87/41 L 96 12/08/18 14:43 12/08/18 14:43 12/08/18 14:43 12/08/18 14:43 12/08/18 10:00 Heart - S1, S2, RRR Lungs - bi-basal crackles. Abdomen - mild distension, soft, mild generalized tenderness, bowel sounds normal. Extremities - No calf tenderness. Edema ++. Dermatitis+. R great toe minimal edema, no tenderness/collection Laboratory Results - last 24 hr 12/07/18 12/07/18 12/08/18 16:56 21:00 05:30 WBC 10.7 H RBC 3.25 L Hgb 8.5 L Hct 26.3 L MCV 80.8 MCH 26.1 MCHC 32.3 RDW 18.1 H Plt Count 300 MPV 8.8 Absolute Neuts (auto) 8.8 H Neutrophils % 82.1 Lymphocytes % 6.3 L Monocytes % 7.6 Eosinophils % 3.7 Basophils % 0.3 Nucleated RBC % 0 PT with INR INR Sodium Potassium Chloride Carbon Dioxide Anion Gap BUN Creatinine Creat Clearance w eGFR POC Glucometer 189 139 Random Glucose Calcium Phosphorus Magnesium Total Bilirubin AST ALT Alkaline Phosphatase Total Protein Albumin 12/08/18 12/08/18 12/08/18 05:30 05:30 05:41 WBC RBC Hgb Hct MCV MCH MCHC RDW Plt Count MPV Absolute Neuts (auto) Neutrophils % Lymphocytes % Monocytes % Eosinophils % Basophils % Nucleated RBC % PT with INR 12.40 INR 1.05 Sodium 137 Potassium 3.8 Chloride 100 Carbon Dioxide 30 Anion Gap 8 BUN 22 H Creatinine 1.9 H Creat Clearance w eGFR 25.12 POC Glucometer 111 Random Glucose 110 H Calcium 7.5 L Phosphorus 4.6 Magnesium 2.4 Total Bilirubin 0.5 AST 10 L ALT 11 L Alkaline Phosphatase 135 H Total Protein 5.5 L Albumin 2.7 L 12/08/18 12:06 WBC RBC Hgb Hct MCV MCH MCHC RDW Plt Count MPV Absolute Neuts (auto) Neutrophils % Lymphocytes % Monocytes % Eosinophils % Basophils % Nucleated RBC % PT with INR INR Sodium Potassium Chloride Carbon Dioxide Anion Gap BUN Creatinine Creat Clearance w eGFR POC Glucometer 135 Random Glucose Calcium Phosphorus Magnesium Total Bilirubin AST ALT Alkaline Phosphatase Total Protein Albumin Current Medications Generic Name Dose Route Start Last Admin Trade Name Freq PRN Reason Stop Dose Admin Amlodipine Besylate 5 mg 12/06/18 10:00 12/08/18 10:14 Norvasc - PO Not Given DAILY JOSE ELIAS Atorvastatin Calcium 40 mg 12/05/18 22:00 12/07/18 21:22 Lipitor - PO 40 mg HS JOSE ELIAS Administration Docusate Sodium 100 mg 12/07/18 10:00 12/08/18 10:14 Colace - PO 100 mg DAILY JOSE ELIAS Administration Ferrous Sulfate 325 mg 12/07/18 10:00 12/08/18 10:14 Feosol - PO 325 mg BIDWM JOSE ELIAS Administration Gabapentin 300 mg 12/05/18 22:00 12/08/18 15:28 Neurontin - PO 300 mg TID JOSE ELIAS Administration Pantoprazole Sodium 80 mg/ 100 mls @ 10 mls/hr 12/06/18 12:00 12/08/18 14:35 Sodium Chloride IVPB Not Given Q10H JOSE ELIAS 8 MG/HR Ampicillin Sodium/Sulbactam 100 mls @ 200 mls/hr 12/08/18 18:00 Sodium 3 gm/ Sodium Chloride IVPB Q8H-IV JOSE ELIAS Insulin Aspart 1 vial 12/06/18 22:00 12/08/18 12:25 Novolog Vial Sliding Scale - SQ Not Given ACHS [facility] Protocol Isosorbide Mononitrate 30 mg 12/06/18 10:00 12/08/18 10:14 Imdur - PO 30 mg DAILY JOSE ELIAS Administration Nitroglycerin 0.4 mg 12/05/18 20:09 Nitrostat - SL Q5M PRN FOR CHEST PAIN Polyethylene Glycol 17 gm 12/06/18 10:00 12/08/18 10:20 Miralax (For Daily Use) - PO 17 grams DAILY JOSE ELIAS Administration Ramipril 10 mg 12/06/18 10:00 12/08/18 10:13 Altace - PO Not Given DAILY JOSE ELIAS ASSESSMENT AND PLAN: 83 year old female with HTN, HLD, DM 2, CAD s/p [place] s/p PCI/Stent (on Aspirin, Brilinta), Chronic Diastolic CHF, CKD 3, s/p chlecystecomy/hysterectomy/ tonsillectomy from [facility], currently on Augmentin for infected wound on R great toe, now presents with intermittent substernal chest pain, initially on exertion, now at rest. Also complained of worsening LE edema. 1. Angina secondary to Acute Blood Loss Anemia secondary to GI bleed, likely Upper. History of CAD s/p [place]/PCI/Stent to LAD - Aspirin/Brilinta now held. ECG - no acute changes. H/H 8.5/26.3 from 6.6/20.9 s/p 2 units PRBCs Stool Guaic positive GI consulted for EGD - scheduled for Saturday 12/09. Transitioned from Protonix drip to Protonix IV 40mg BID Aspirin/Brilinta held. No need for further Brilinta as per Cardio given time elapsed from stent placement. Iron 10/Ferritin 7.9 - started on FeSO4. Currently chest pain free. 2. CAROLYN - sec to IV Lasix diuresis - now held due to Creat 1.9 3. Chronic Diastolic HF Chronic fluid retention in LEs sec to venous stasis with dermatitis. IV Lasix diuresis was ongoging - now held due to CAROLYN. Echo - aneurysmal atrial septum Cardiology following. 4. HTN - Continue Norvasc, Ramipril, imdur 5. HLD - normally on Lipitor. 6. DM 2 - will cover with Novolog sliding scale. 7. R great toe infection - Continue IV Unasyn for now. Can revert to oral Augmentin on discharge. DVT Px - SCDs. Visit type - Emergency Visit Emergency Visit: Yes ED Registration Date: 12/05/18 Care time: The patient presented to the Emergency Department on the above date and was hospitalized for further evaluation of their emergent condition. - New Patient This patient is new to me today: No - Critical Care Critical Care patient: No - Discharge Referral Referred to [facility] Med [facility].C.: No
[2018-12-08] MEDS ORDERED: SODIUM CHLORIDE 250 ML IV STA (17:52)
--- NOTE | 2018-12-08 21:23 | CONS ---
DATE OF CONSULTATION: DATE OF DICTATION: 12/08/2018 REQUESTED BY: Hospitalist service. This is an 83-year-old woman with a past medical history of hypertension, diabetes, coronary artery disease. She presented to the ER on the 04 of December complaining of shortness of breath and chest pain. She was recently seen in the emergency room on the , for evaluation of a bleeding right toe. She had stubbed her toe and the toe had been intermittently bleeding and the nail fell off. She was evaluated in the ER on the , had an x-ray, showed no fracture. 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 She reports that she had a fair amount of bleeding from the toe. She was found on admission on the to be severely anemic and she was also noted, given the complaints of chest pain, she was evaluated by Cardiology. I am asked to see her regarding her toe. Her past medical history is notable for hypertension, hyperlipidemia, diabetes, coronary artery disease. She has a history of DE and status post stent. She has a history of heart failure, CKD. Surgical history is notable for cholecystectomy, hysterectomy, tonsillectomy, and stent placement. She is allergic to TOMATO SAUCE. She has no known drug allergies. Family history is notable for a sister who from liver cirrhosis; a father who of coronary artery disease, as well as a brother; and a mother who had ovarian cancer. [facility]. She denies cigarette, alcohol, or substance use. [facility] medications [facility] the [facility] include amlodipine, ascorbic acid, aspirin, Lipitor, gabapentin, insulin, isosorbide mononitrate, loratadine, multivitamins, pantoprazole, MiraLax, ramipril, Brilinta, Lasix, insulin, Januvia, tamsulosin, prednisone, and Augmentin, which was at the time that was her home medication. REVIEW OF SYSTEMS: She reports feeling well. After admission to the hospital, she was noted to have a hemoglobin of 6.6 and guaiac-positive stools. PHYSICAL EXAMINATION: General: She is awake and alert. Vital Signs: Temperature is 98. Pulse is 72. Blood pressure 89/57. Respiratory rate 18. HEENT: Normocephalic. Her eyes are anicteric. Neck: Supple. Lungs: Clear to auscultation. Heart: Regular rate and rhythm. Abdomen: Soft, nontender. Extremities: Notable for 2+ edema. Her big toe, the nail is removed, and it has some minimal erythema. Labs are notable for a white count of 10.7, hemoglobin 8.5, platelets are 300. BUN 22, creatinine 1.9. A stool occult blood is positive. As stated before, x-ray of the toe is without fracture. In summary, this is an 83-year-old woman with cellulitis of her toe, minimal erythema at the toenail bed. Would continue Unasyn, as she is currently n.p.o. awaiting endoscopy. Can switch back to Augmentin when taking p.o. Can follow up with Podiatry at her SNF. Number 2, chest pain: Follow up with Cardiology. Number 3, anemia, status post transfusion. SKIP ANDRADE M.D. LELO/[id number]
[2018-12-08] MEDS: ATORVASTATIN CA 40 MG TABLET (FP) PO SCH (21:29)
[2018-12-09] MEDS ORDERED: PT OWN MED DRAWER 7, Y5N ONE ×3 (01:26→17:03)
[2018-12-09] MEDS: AMPICILLIN NA/SULBACTAM NA 3 GM in SODIUM CHLORIDE 100 ML IVPB SCH ×3 (01:30→17:16)
[2018-12-09] MEDS: GABAPENTIN 300 MG CAPSULE (FP) PO SCH ×3 (05:07→22:17)
[2018-12-09] MEDS: PANTOPRAZOLE SODIUM 80 MG in SODIUM CHLORIDE 100 ML IVPB SCH (05:15)
[2018-12-09] MEDS: INSULIN SLIDING SCALE (NOVOLOG) 1 VIAL SQ SCH ×4 (06:16→22:17)
[2018-12-09 07:54] LABS: BASO % 0.5 % (0-2.0); EOS % 4.7 % (0-4.5); HEMATOCRIT 29.6 % (32.4-45.2); HEMOGLOBIN 9.5 GM/dL (10.7-15.3); LYMPH % 7.5 % (8-40); MCHC 32.1 g/dl (32.0-36.0); MEAN PLT VOLUME 8.7 fl (7.5-11.1); MONO % 6.7 % (3.8-10.2); NEUT % 80.6 % (42.8-82.8); PLATELET COUNT 311 K/MM3 (134-434); RBC 3.65 M/mm3 (3.60-5.2); RDW 18.5 % (11.6-15.6)
[2018-12-09] MEDS ORDERED: methylPREDNISolone NA SUCC 125 MG/2 ML VIAL IVPUSH ONE (07:54)
--- NOTE | 2018-12-09 08:01 | PN ---
Progress Note, Physician History of Present Illness: GI FOLLOW UP NOTE Patient is s/p transfusion of 2U PRBC over weekend and noted with adequate rise in Hg 8.5 from 6.6. As per night RN patient had periods of de-saturation with O2 82-85% on 5L/min while lying down in bed. SpO2 improved when patient sitting in chair. Denies abdominal pain, nausea, vomiting, rectal bleeding, melena. - Current Medication List Current Medications: Active Medications Amlodipine Besylate (Norvasc -) 5 mg PO DAILY [facility] Last Admin: 12/08/18 10:14 Dose: Not Given Atorvastatin Calcium (Lipitor -) 40 mg PO HS [facility] Last Admin: 12/08/18 21:29 Dose: 40 mg Docusate Sodium (Colace -) 100 mg PO DAILY [facility] Last Admin: 12/08/18 10:14 Dose: 100 mg Ferrous Sulfate (Feosol -) 325 mg PO BIDWM [facility] Last Admin: 12/08/18 17:13 Dose: 325 mg Gabapentin (Neurontin -) 300 mg PO TID [facility] Last Admin: 12/09/18 05:07 Dose: Not Given Pantoprazole Sodium 80 mg/ (Sodium Chloride) 100 mls @ 10 mls/hr IVPB Q10H [facility] Last Admin: 12/09/18 05:15 Dose: 10 mls/hr Ampicillin Sodium/Sulbactam (Sodium 3 gm/ Sodium Chloride) 100 mls @ 200 mls/ hr IVPB Q8H-IV [facility] Last Admin: 12/09/18 01:30 Dose: 200 mls/hr Insulin Aspart (Novolog Vial Sliding Scale -) 1 vial SQ ACHS [facility]; Protocol Last Admin: 12/09/18 06:16 Dose: Not Given Isosorbide Mononitrate (Imdur -) 30 mg PO DAILY [facility] Last Admin: 12/08/18 10:14 Dose: 30 mg Nitroglycerin (Nitrostat -) 0.4 mg SL Q5M PRN PRN Reason: FOR CHEST PAIN Polyethylene Glycol (Miralax (For Daily Use) -) 17 gm PO DAILY [facility] Last Admin: 12/08/18 10:20 Dose: 17 grams Ramipril (Altace -) 10 mg PO DAILY [facility] Last Admin: 12/08/18 10:13 Dose: Not Given - Objective Vital Signs: Vital Signs Temperature 98.1 F 12/09/18 06:00 Pulse Rate 61 12/09/18 06:00 Respiratory Rate 18 12/09/18 06:00 Blood Pressure 102/41 L 12/09/18 06:00 O2 Sat by Pulse Oximetry (%) 88 L 12/08/18 21:00 Constitutional: Yes: No Distress, Calm Eyes: Yes: Conjunctiva Clear HENT: Yes: Atraumatic Cardiovascular: Yes: Regular Rate and Rhythm Respiratory: Yes: On Nasal O2, Other (crackles bilaterally) Gastrointestinal: Yes: Normal Bowel Sounds, Soft, Distention, Other (high tympany). No: WNL, Abdomen, Obese, Ascites, Hematemesis, Hemorrhoids, Hepatomegaly, Hernia, Hyperactive Bowel Sounds, Hypoactive Bowel Sounds, Melena , Palpable Mass, Pulsatile Mass, Rectal Bleeding, Splenomegaly, Tenderness, Tenderness, Epigastrium, Tenderness, Rebound, Vomiting Labs: INR, PTT INR 1.05 (0.83-1.09) 12/08/18 05:30 CBC WBC 10.7 K/mm3 (4.0-10.0) H 12/08/18 05:30 RBC 3.25 M/mm3 (3.60-5.2) L 12/08/18 05:30 Hgb 8.5 GM/dL (10.7-15.3) L 12/08/18 05:30 Hct 26.3 % (32.4-45.2) L 12/08/18 05:30 MCV 80.8 fl (80-96) 12/08/18 05:30 MCH 26.1 pg (25.7-33.7) 12/08/18 05:30 MCHC 32.3 g/dl (32.0-36.0) 12/08/18 05:30 RDW 18.1 % (11.6-15.6) H 12/08/18 05:30 Plt Count 300 K/MM3 (134-434) 12/08/18 05:30 MPV 8.8 fl (7.5-11.1) 12/08/18 05:30 Absolute Neuts (auto) 8.8 K/mm3 (1.5-8.0) H 12/08/18 05:30 Neutrophils % 82.1 % (42.8-82.8) 12/08/18 05:30 Lymphocytes % 6.3 % (8-40) L 12/08/18 05:30 Monocytes % 7.6 % (3.8-10.2) 12/08/18 05:30 Eosinophils % 3.7 % (0-4.5) 12/08/18 05:30 Basophils % 0.3 % (0-2.0) 12/08/18 05:30 Nucleated RBC % 0 % (0-0) 12/08/18 05:30 <Laura Kitchen - Last Filed: 12/09/18 07:52> - Current Medication List Current Medications: Active Medications Albuterol/Ipratropium (Duoneb -) 1 amp NEB RQID [facility] Last Admin: 12/09/18 16:15 Dose: 1 amp Atorvastatin Calcium (Lipitor -) 40 mg PO HS [facility] Last Admin: 12/08/18 21:29 Dose: 40 mg Docusate Sodium (Colace -) 100 mg PO DAILY [facility] Last Admin: 12/09/18 09:08 Dose: 100 mg Ferrous Sulfate (Feosol -) 325 mg PO BIDWM [facility] Last Admin: 12/09/18 17:16 Dose: 325 mg Gabapentin (Neurontin -) 300 mg PO TID [facility] Last Admin: 12/09/18 13:49 Dose: 300 mg Ampicillin Sodium/Sulbactam (Sodium 3 gm/ Sodium Chloride) 100 mls @ 200 mls/ hr IVPB Q8H-IV [facility] Last Admin: 12/09/18 17:16 Dose: 200 mls/hr Insulin Aspart (Novolog Vial Sliding Scale -) 1 vial SQ ACHS [facility]; Protocol Last Admin: 12/09/18 17:16 Dose: 3 unit Isosorbide Mononitrate (Imdur -) 30 mg PO DAILY [facility] Last Admin: 12/09/18 09:08 Dose: 30 mg Nitroglycerin (Nitrostat -) 0.4 mg SL Q5M PRN PRN Reason: FOR CHEST PAIN Pantoprazole Sodium (Protonix Iv) 40 mg IVPUSH BID [facility] Last Admin: 12/09/18 11:58 Dose: 40 mg Polyethylene Glycol (Miralax (For Daily Use) -) 17 gm PO DAILY [facility] Last Admin: 12/09/18 09:08 Dose: 17 grams - Objective Vital Signs: Vital Signs Temperature 98.5 F 12/09/18 14:44 Pulse Rate 60 12/09/18 14:44 Respiratory Rate 18 12/09/18 15:18 Blood Pressure 100/51 L 12/09/18 14:44 O2 Sat by Pulse Oximetry (%) 93 L 12/09/18 15:18 Labs: CBC, BMP 12/09/18 07:30 12/09/18 07:30 INR, PTT INR 1.05 (0.83-1.09) 12/08/18 05:30 <Stephen Mata - Last Filed: 12/09/18 17:35> Problem List - Problems (1) Anemia Assessment/Plan: R>endoscopy on hold until cardiology and pulmonary clearance >Monitor Hg daily and transfuse for Hg <8.0 >continue Protonix drip Code(s): D64.9 - ANEMIA, UNSPECIFIED Qualifiers: Anemia type: unspecified type Qualified Code(s): D64.9 - Anemia, unspecified <Laura Kitchen - Last Filed: 12/09/18 07:52> - Problems (1) GI bleed Code(s): K92.2 - GASTROINTESTINAL HEMORRHAGE, UNSPECIFIED <Stephen Mata - Last Filed: 12/09/18 17:35>
[2018-12-09] MEDS ORDERED: ALBUTEROL SO4 2.5/IPRATROPIUM 0.5 INH SOL 3 ML VIAL.NEB. NEB ONE (08:10)
[2018-12-09] MEDS: ALBUTEROL SO4 2.5/IPRATROPIUM 0.5 INH SOL 3 ML VIAL.NEB. NEB SCH ×4 (08:15→20:22)
[2018-12-09 08:17] LABS: MAGNESIUM 2.4 mg/dL (1.8-2.4); PHOSPHOROUS 5.2 mg/dL (2.5-4.9)
[2018-12-09 08:21] LABS: ANION GAP 8 MMOL/L (8-16); BLOOD UREA NITROGEN 27 mg/dL (7-18); CHLORIDE 98 mmol/L (98-107); CO2 28 mmol/L (21-32); CREATININE 2.4 mg/dL (0.55-1.3); GLUCOSE,RANDOM 120 mg/dL (74-106); POTASSIUM 4.1 mmol/L (3.5-5.1); SODIUM 135 mmol/L (136-145)
--- NOTE | 2018-12-09 08:38 | PN ---
Physical Exam: SUBJECTIVE: Patient seen and examined at bedside. She currently denies shortness of breath, on 3L nasal canula oxygen. Patient endorses one bowel movement last night and denies hematochezia, or melena. She denies subjective fevers, chills, shortness of breath, chest pain, palpitations, abdominal pain, nausea vomiting. OBJECTIVE: Vital Signs Period Temp Pulse Resp BP Sys/Emerson Pulse Ox Last 24 Hr 97.3 F-98.1 F 60-72 18-26 87-103/41-57 88-96 GENERAL: The patient is awake, alert, and fully oriented, in no acute distress. HEAD: Normocephalic, atraumatic. EYES: PERRL, extraocular movements intact, sclera anicteric, conjunctiva clear. ENT: Oropharynx clear, without erythema or exudates. Moist mucous membranes. NECK: Trachea midline, full range of motion. Supple without lymphadenopathy. LUNGS: Good inspiratory effort with poor air entry bilaterally. Bibasilar crackles auscultated bilaterally. No accessory muscle use. HEART: Regular rate and rhythm, S1, S2 auscultated with holosystolic murmur at right upper sternal border. ABDOMEN: Soft, distended, nontender to light and deep palpation x4 quadrants, no rebound tenderness, no guarding. Normoactive bowel sounds x4 quadrants. No hepatosplenomegaly palpated or percussed. EXTREMITIES: 2+ radial, 1+ dorsalis pedis pulses bilaterally. warm, well perfused. 2+ lower extremity edema, with thickened skin, and chronic venous stasis changes bilaterally. NEUROLOGICAL: Cranial nerves II through XII grossly intact. Normal speech. No gross focal deficits. PSYCH: Normal mood, normal affect upon my encounter. Laboratory Results - last 24 hr 12/08/18 12/08/18 12/08/18 12:06 17:12 21:29 WBC RBC Hgb Hct MCV MCH MCHC RDW Plt Count MPV Absolute Neuts (auto) Neutrophils % Lymphocytes % Monocytes % Eosinophils % Basophils % Nucleated RBC % Sodium Potassium Chloride Carbon Dioxide Anion Gap BUN Creatinine Creat Clearance w eGFR POC Glucometer 135 136 143 Random Glucose Calcium Phosphorus Magnesium 12/09/18 12/09/18 12/09/18 05:15 07:30 07:30 WBC 9.0 RBC 3.65 Hgb 9.5 L Hct 29.6 L MCV 81.0 MCH 26.0 MCHC 32.1 RDW 18.5 H Plt Count 311 MPV 8.7 Absolute Neuts (auto) 7.3 Neutrophils % 80.6 Lymphocytes % 7.5 L Monocytes % 6.7 Eosinophils % 4.7 H Basophils % 0.5 Nucleated RBC % 0 Sodium 135 L Potassium 4.1 Chloride 98 Carbon Dioxide 28 Anion Gap 8 BUN 27 H Creatinine 2.4 H Creat Clearance w eGFR 19.19 POC Glucometer 114 Random Glucose 120 H Calcium 8.0 L Phosphorus Magnesium 12/09/18 07:30 WBC RBC Hgb Hct MCV MCH MCHC RDW Plt Count MPV Absolute Neuts (auto) Neutrophils % Lymphocytes % Monocytes % Eosinophils % Basophils % Nucleated RBC % Sodium Potassium Chloride Carbon Dioxide Anion Gap BUN Creatinine Creat Clearance w eGFR POC Glucometer Random Glucose Calcium Phosphorus 5.2 H Magnesium 2.4 Active Medications Generic Name Dose Route Start Last Admin Trade Name Freq PRN Reason Stop Dose Admin Albuterol/Ipratropium 1 amp 12/09/18 08:00 12/09/18 08:15 Duoneb - NEB 1 amp RQID [facility] Administration Amlodipine Besylate 5 mg 12/06/18 10:00 12/08/18 10:14 Norvasc - PO Not Given DAILY [facility] Atorvastatin Calcium 40 mg 12/05/18 22:00 12/08/18 21:29 Lipitor - PO 40 mg HS [facility] Administration Docusate Sodium 100 mg 12/07/18 10:00 12/08/18 10:14 Colace - PO 100 mg DAILY [facility] Administration Ferrous Sulfate 325 mg 12/07/18 10:00 12/08/18 17:13 Feosol - PO 325 mg BIDWM [facility] Administration Gabapentin 300 mg 12/05/18 22:00 12/09/18 05:07 Neurontin - PO Not Given TID [facility] ELIAS Pantoprazole Sodium 80 mg/ 100 mls @ 10 mls/hr 12/06/18 12:00 12/09/18 05:15 Sodium Chloride IVPB 10 mls/hr Q10H [facility] Administration 8 MG/HR Ampicillin Sodium/Sulbactam 100 mls @ 200 mls/hr 12/08/18 18:00 12/09/18 01: 30 Sodium 3 gm/ Sodium Chloride IVPB 200 mls/hr Q8H-IV [facility] Administration Insulin Aspart 1 vial 12/06/18 22:00 12/09/18 06:16 Novolog Vial Sliding Scale - SQ Not Given ACHS [facility] Protocol Isosorbide Mononitrate 30 mg 12/06/18 10:00 12/08/18 10:14 Imdur - PO 30 mg DAILY [facility] Administration Methylprednisolone Sodium Succinate 40 mg 12/09/18 15:00 Solu-Medrol - IVPUSH Q6H-IV [facility] Nitroglycerin 0.4 mg 12/05/18 20:09 Nitrostat - SL Q5M PRN FOR CHEST PAIN Polyethylene Glycol 17 gm 12/06/18 10:00 12/08/18 10:20 Miralax (For Daily Use) - PO 17 grams DAILY [facility] Administration Ramipril 10 mg 12/06/18 10:00 12/08/18 10:13 Altace - PO Not Given DAILY [facility] ASSESSMENT/PLAN: Patient is an 83 year old female with history of hypertension, hyperlipidemia, diabetes mellitus, coronary artery disease and myocardial infarction s/p coronary stent (on Apirin, Brilinta), HFpEF, chronic kidney diseaseoresents with complaint of chest tightness ongoing for past three days. Chest pain -Resolved. -Likely secondary to symptomatic anemia -EKG shows normal sinus rhythm, 1st degree AV block. No ischemic ST-T wave changes. -Troponin- I negative x2 -Follow cardiac ECHO -Duplex of bilateral lower extremities negative for DVT -Chest radiograph shows no acute pathology. -Cardiolgy consult (Dr. Murguia) appreciated -Telemetry monitoring. Symptomatic Anemia -Hb 9.5/ Hct 29.6 -Patient does not appear to be actively bleeding. -Paitent is s/p transfusion 2 units PRBC -Given patient's history of myocardial infarct, and coronary artery disease, Hb transfusion goal should be above 8.0grams/ dL. -Protonix 40mg IV BID -Gastroenterology consult (Dr. Mata) appreciated. Endoscopy pending cardiology and pulmonology clearance Acute on chronic respiratory failure -Episode of desaturation to 88%. Received Methylprednisone 125mg IV, and 1 amp DuoNebs. -Pulmonology consult (Dr. Atkins) for endoscopy clearance. -IV Lasix currently held due to CAROLYN Acute kidney injury -BUN 27, Cr 2.4 -Placing cavanaugh catheter. Monitor urine output. -Holding Ramipril 10mg PO daily -Discontinue Norvasc -Follow renal, bladder US -Follow urine electrolytes Coronary artery disease, history of [place] s/p stent -Aspirin and Brilinta held in light of anemia. -Upon discharge will reinstate only Aspirin 81mg daily, and discontinue Brilinta, per cardiology recommendations. -Cardiology consult (Dr. Murguia) appreciated. Diabetes mellitus -Insulin sliding scale ACHS -Fignerstick blood glucose monitoring ACHS Hypertension -Imdur 30mg PO daily Hyperlipidemia -Atorvastatin 40mg PO HS Right toenail infection -Unasyn 3 grams IV Q8H -ID consult (Dr. Pat) appreciated. Prophylaxis -Heparin 5000u subq TID -Protonix Drip -Clear liquid diet Disposition -Continue care in Telemetry floor. Visit type - Emergency Visit Emergency Visit: Yes ED Registration Date: 12/05/18 Care time: The patient presented to the Emergency Department on the above date and was hospitalized for further evaluation of their emergent condition. - New Patient This patient is new to me today: No - Critical Care Critical Care patient: No - Discharge Referral Referred to [facility] No
[2018-12-09] MEDS: FERROUS SO4 325 MG TABLET (FP) PO SCH ×2 (08:52→17:16)
[2018-12-09] MEDS: POLYETHYLENE GLYCOL 3350 119 GM BTL PO SCH (09:08)
[2018-12-09] MEDS: amLODIPine BESYLATE 5 MG TABLET (FP) PO SCH (09:08)
[2018-12-09] MEDS: DOCUSATE SODIUM 100 MG CAPSULE (FP) PO SCH (09:08)
[2018-12-09] MEDS: RAMIPRIL 5 MG CAPSULE (FP) PO SCH (09:08)
[2018-12-09] MEDS: ISOSORBIDE MONONITRATE 30 MG TAB.SR.24H (FP) PO SCH (09:08)
--- NOTE | 2018-12-09 10:18 | PN ---
Progress Note, Physician Chief Complaint: sob History of Present Illness: breathing is better. woke up with sob last night again--moved to chair. resolved in 5 min. less severe and shorter than prior. NEW SX FOR HER no cp, palpit, syncope - Current Medication List Current Medications: Active Medications Albuterol/Ipratropium (Duoneb -) 1 amp NEB RQID [facility] Last Admin: 12/09/18 08:15 Dose: 1 amp Amlodipine Besylate (Norvasc -) 5 mg PO DAILY [facility] Last Admin: 12/09/18 09:08 Dose: 5 mg Atorvastatin Calcium (Lipitor -) 40 mg PO HS [facility] Last Admin: 12/08/18 21:29 Dose: 40 mg Docusate Sodium (Colace -) 100 mg PO DAILY [facility] Last Admin: 12/09/18 09:08 Dose: 100 mg Ferrous Sulfate (Feosol -) 325 mg PO BIDWM [facility] Last Admin: 12/09/18 08:52 Dose: 325 mg Gabapentin (Neurontin -) 300 mg PO TID [facility] Last Admin: 12/09/18 05:07 Dose: Not Given Ampicillin Sodium/Sulbactam (Sodium 3 gm/ Sodium Chloride) 100 mls @ 200 mls/ hr IVPB Q8H-IV [facility] Last Admin: 12/09/18 09:10 Dose: 200 mls/hr Insulin Aspart (Novolog Vial Sliding Scale -) 1 vial SQ ACHS [facility]; Protocol Last Admin: 12/09/18 06:16 Dose: Not Given Isosorbide Mononitrate (Imdur -) 30 mg PO DAILY [facility] Last Admin: 12/09/18 09:08 Dose: 30 mg Methylprednisolone Sodium Succinate (Solu-Medrol -) 40 mg IVPUSH Q6H-IV [facility] Nitroglycerin (Nitrostat -) 0.4 mg SL Q5M PRN PRN Reason: FOR CHEST PAIN Pantoprazole Sodium (Protonix Iv) 40 mg IVPUSH BID [facility] Polyethylene Glycol (Miralax (For Daily Use) -) 17 gm PO DAILY [facility] Last Admin: 12/09/18 09:08 Dose: 17 grams Ramipril (Altace -) 10 mg PO DAILY [facility] Last Admin: 12/09/18 09:08 Dose: 10 mg - Objective Vital Signs: Vital Signs Temperature 98.1 F 12/09/18 06:00 Pulse Rate 61 12/09/18 06:00 Respiratory Rate 18 12/09/18 06:00 Blood Pressure 102/41 L 12/09/18 06:00 O2 Sat by Pulse Oximetry (%) 92 L 12/09/18 06:00 Constitutional: Yes: No Distress, Calm Eyes: No: Sclera Icterus HENT: No: Nasal Congestion Cardiovascular: Yes: Regular Rate and Rhythm, S1, S2, Other (PMI non diplaced). No: JVD (in chair), Gallop, Murmur Respiratory: Yes: CTA Bilaterally. No: Accessory Muscle Use Gastrointestinal: Yes: Normal Bowel Sounds, Soft. No: Tenderness Musculoskeletal: Yes: Other (No kyphosis) Extremities: No: Cold, Cyanosis Edema: Yes (1+ pretib) Integumentary: No: Jaundice Neurological: Yes: Alert, Oriented (x3) Psychiatric: No: Agitated Labs: CBC, BMP 12/09/18 07:30 12/09/18 07:30 INR, PTT INR 1.05 (0.83-1.09) 12/08/18 05:30 Assessment/Plan 06/2017 mibi: Stress test + for moderate intensity ischemia of posterior and lateral wall. ? TID LHC 10/12: DAYANA to mLAD, PTCA of D1. residual 50-60% mRCA. OM1 chronically occluded fills via LAD collaterals Echo 12/13: nl LV/EF. nl RV. trace MR/TR, no RVSP. Echo 09/2017: tds; nl lv/rv, no sig valve path Echo 04/12: TDS. normal overall LVSF, can't r/o RWMAs. mild-mod RVE with mild hypo. mild-mod TR. RVSP 30-40 Echo 08/11: nl LV, nl RV, mild LAE, valve fxn WNL CXR: clear lungs/pleura ECG: sr, no ischemic changes tele: a/p: chest pain: -no signs acs or chf -trop neg x2, ECG non-ischemic -06/2017 mibi was reviewed by dr miller and felt to show only minimal inferolateral ischemia in area of patient's known residual disease, no significant TID is seen. -suspect symptoms were due to severe anemia, monitor symptoms after prbcs sob, PND/orthopnea, hypoxia: -c/o sob when gets oob to bathroom, then orthopnea when returns to bed which resolves on its own -? JVD--tds exam -rales at bases. repeat CXR and repeat BNP -on lasix 40 po bid at home. received 40 IV x 2 doses yesterday. -12/07: lasix 40 IV x 1 dose now, then continue 40 iv bid for now--further dosing tbd -12/08: suspected volume up but creat bumped 1.1->1.9, lasix held -12/09: bun/creat 27/2.4. hypotensive to 80s overnight--she is likely dry. suspect non-cardiac cause of her sob. this creatinine behavior to moderate dose lasix is not consistent with elevated circulating fluid volume/hi filling pressures, echo images limited review today: RV enlarged but function preserved , no cause of cardiac output obstruction present.. suspect her nocturnal sob/ hypoxia is related to pulm etiology (pt on home O2 for few yrs, doesn't see pum) --rec pulm evaluation. -would not pursue ERCP until oxygenation is optimized CAROLYN: -holding diuretics -cont gentle IVF -BUN:creat not typical prerenal pattern--consider renal consult anemia: -transfused -H/H currently stable -GI eval pending -asa/brilinta on hold -no cardiac contraindications to foc/egd if needed CAD, prior h/o ACS (UA presentation) with PCI of LAD: -plan as above -residual moderate angiographic stenosis of mRCA, and [employer] of OM fed by LAD collaterals -pt is >3 yrs from prior PCI, hence dr miller plans to stop brilinta (bleed risk > ischemia risk) -resume only asa 81 qd once ok with GI -cont statin, imdur, ccb chronic diast CHF, venous ins'y/edema: -on lasix 40 bid at home. -suspect euvolemic to dry at present--as above HTN: -stable on current meds -same plan
--- NOTE | 2018-12-09 11:41 | PN ---
Teaching Attending Note Name of Resident: Greg Gomez ATTENDING PHYSICIAN STATEMENT I saw and evaluated the patient. I reviewed the resident's note and discussed the case with the resident. I agree with the resident's findings and plan as documented. SUBJECTIVE: Still feels intermittently SOB, no further CP. Denies BRBPR or hematemesis. No fever/chills. OBJECTIVE: Afebrile, Hemodynamically Stable. Desaturated overnight to 88% on 5L O2. Last Vital Signs Temp Pulse Resp BP Pulse Ox 98.1 F 61 18 102/41 L 92 L 12/09/18 06:00 12/09/18 06:00 12/09/18 06:00 12/09/18 06:00 12/09/18 06:00 Heart - S1, S2, RRR Lungs - bi-basal crackles and wheeze. Abdomen - mild distension, soft, mild generalized tenderness, bowel sounds normal. Extremities - No calf tenderness. Edema ++. Dermatitis+. R great toe minimal edema, no tenderness/collection Laboratory Results - last 24 hr 12/05/18 12/08/18 12/08/18 19:50 12:06 17:12 WBC RBC Hgb Hct MCV MCH MCHC RDW Plt Count MPV Absolute Neuts (auto) Neutrophils % Lymphocytes % Monocytes % Eosinophils % Basophils % Nucleated RBC % Sodium Potassium Chloride Carbon Dioxide Anion Gap BUN Creatinine Creat Clearance w eGFR POC Glucometer 135 136 Random Glucose Calcium Phosphorus Magnesium Blood Type A POSITIVE Antibody Screen Negative Crossmatch See Detail 12/08/18 12/09/18 12/09/18 21:29 05:15 07:30 WBC 9.0 RBC 3.65 Hgb 9.5 L Hct 29.6 L MCV 81.0 MCH 26.0 MCHC 32.1 RDW 18.5 H Plt Count 311 MPV 8.7 Absolute Neuts (auto) 7.3 Neutrophils % 80.6 Lymphocytes % 7.5 L Monocytes % 6.7 Eosinophils % 4.7 H Basophils % 0.5 Nucleated RBC % 0 Sodium Potassium Chloride Carbon Dioxide Anion Gap BUN Creatinine Creat Clearance w eGFR POC Glucometer 143 114 Random Glucose Calcium Phosphorus Magnesium Blood Type Antibody Screen Crossmatch 12/09/18 12/09/18 12/09/18 07:30 07:30 11:24 WBC RBC Hgb Hct MCV MCH MCHC RDW Plt Count MPV Absolute Neuts (auto) Neutrophils % Lymphocytes % Monocytes % Eosinophils % Basophils % Nucleated RBC % Sodium 135 L Potassium 4.1 Chloride 98 Carbon Dioxide 28 Anion Gap 8 BUN 27 H Creatinine 2.4 H Creat Clearance w eGFR 19.19 POC Glucometer 221 Random Glucose 120 H Calcium 8.0 L Phosphorus 5.2 H Magnesium 2.4 Blood Type Antibody Screen Crossmatch Current Medications Generic Name Dose Route Start Last Admin Trade Name Freq PRN Reason Stop Dose Admin Albuterol/Ipratropium 1 amp 12/09/18 08:00 12/09/18 11:07 Duoneb - NEB 1 amp RQID JOSE ELIAS Administration Atorvastatin Calcium 40 mg 12/05/18 22:00 12/08/18 21:29 Lipitor - PO 40 mg HS [facility] ELI[facility] Administration Docusate Sodium 100 mg 12/07/18 10:00 12/09/18 09:08 Colace - PO 100 mg DAILY [facility] ELI[facility] Administration Ferrous Sulfate 325 mg 12/07/18 10:00 12/09/18 08:52 Feosol - PO 325 mg BIDWM [facility] Administration Gabapentin 300 mg 12/05/18 22:00 12/09/18 13:49 Neurontin - PO 300 mg TID [facility] ELIAS Administration Ampicillin Sodium/Sulbactam 100 mls @ 200 mls/hr 12/08/18 18:00 12/09/18 09: 10 Sodium 3 gm/ Sodium Chloride IVPB 200 mls/hr Q8H-IV [facility] Administration Insulin Aspart 1 vial 12/06/18 22:00 12/09/18 11:58 Novolog Vial Sliding Scale - SQ 2 unit ACHS JOSE ELIAS Administration Protocol Isosorbide Mononitrate 30 mg 12/06/18 10:00 12/09/18 09:08 Imdur - PO 30 mg DAILY [facility] Administration Nitroglycerin 0.4 mg 12/05/18 20:09 Nitrostat - SL Q5M PRN FOR CHEST PAIN Pantoprazole Sodium 40 mg 12/09/18 10:00 12/09/18 11:58 Protonix Iv IVPUSH 40 mg BID [facility] ELIAS Administration Polyethylene Glycol 17 gm 12/06/18 10:00 12/09/18 09:08 Miralax (For Daily Use) - PO 17 grams DAILY JOSE ELIAS Administration ASSESSMENT AND PLAN: 83 year old female with HTN, HLD, DM 2, CAD s/p [place] s/p PCI/Stent (on Aspirin, Brilinta), CRF sec to Chronic Diastolic CHF, CKD 3, s/p chlecystecomy/ hysterectomy/tonsillectomy from [facility], currently on Augmentin for infected wound on R great toe, now presents with intermittent substernal chest pain, initially on exertion, now at rest. Also complained of worsening LE edema. 1. Angina secondary to Acute Blood Loss Anemia secondary to GI bleed, likely Upper. History of CAD s/p OK/PCI/Stent to LAD - Aspirin/Brilinta now held. ECG - no acute changes. H/H 9.5/29.6 from 6.6/20.9 s/p 2 units PRBCs Stool Guaic positive GI consulted for EGD - scheduled for Saturday 12/09 - now postponed due to desaturation episode and wheeze. Transitioned from Protonix drip to Protonix IV 40mg BID Aspirin/Brilinta held. No need for further Brilinta as per Cardio given time elapsed from stent placement. Iron 10/Ferritin 7.9 - started on FeSO4. Currently chest pain free. 2. CAROLYN - sec to IV Lasix diuresis - worsening renal function despite 250ml bolus yesterday - wary of giving further IV fluids to already fluid overloaded patient. Nephrology consulted for further eval and recommendations. 3. Acute on Chronic Respiratory Failure secondary to Chronic Diastolic HF - SpO2 92% on 2L - episode of desaturation to 88% overnight. Chronic fluid retention in LEs sec to venous stasis with dermatitis. IV Lasix diuresis was ongoing - now held due to CAROLYN. Echo - aneurysmal atrial septum Now has some exp wheeze, no history of Asthma/COPD/smoking ?fluid related. Received one dose of IV Solumedrol and DuoNebs. CXR requested. Cardiology following. May need Pulm eval. 4. HTN - Will hold Norvasc and Ramipril given borderline BP/Hypotension and CAROLYN. Continue Imdur if BP allows. 5. HLD - normally on Lipitor. 6. DM 2 - covered with Novolog sliding scale. 7. R great toe infection - Continue IV Unasyn for now. Can revert to oral Augmentin on discharge. DVT Px - SCDs.
[2018-12-09] MEDS: PANTOPRAZOLE SODIUM 40 MG VIAL IVPUSH SCH ×2 (11:58→22:17)
[2018-12-09] MEDS ORDERED: SODIUM CHLORIDE 1,000 ML IV SCH ×2 (12:00)
[2018-12-09] MEDS ORDERED: methylPREDNISolone NA SUCC 40 MG/1 ML VIAL IVPUSH SCH (15:00)
--- NOTE | 2018-12-09 15:13 | CONSULT ---
Consult Consult Specialty:: Nephrology Reason for Consultation:: CAROLNY - History of Present Illness Chief Complaint: initially had chest pain and shortness of breath History of Present Illness: Pt is an 83 year old female with pmhx of CKD, CHF, HTN, HLD and DM who initially presented to the ER with shortness of breath and chest pain. She also had stubbed her right toe and had bleeding from it. She developed progressive shortness of breath. I was called to evaluate her today for acute renal failure. She was hypotensive over the last few days. Her lasix was stopped and she was given fluids. She says that she has not urinated since sunday. She denies chest pain at the moment. SHe was taking 40 mg of lasix twice per day at home. Pt is known to me from previous visits. She complains of shortness of breath and of lower ext edema. - History Source History Provided By: Patient, Medical Record - Past Medical History DEVELOPMENT TECHNICAL LEAD: Yes: Peripheral Neuropathy Cardio/Vascular: Yes: CAD, CHF, HTN, [place] (10/02/2015 resulting in a single stent insertion) Gastrointestinal: Yes: Diverticulosis, Peptic Ulcer Disease, Other (colon polyp) Hepatobiliary: Yes: Cholecystitis (prior cholecystitis s/p perc roxana tube from 11/2013-02/2014), Choledocholithiasis (resolved spontaneously) Renal/: Yes: Renal Failure (on prior admission- resolved) ...: No Rheumatology: Yes: Gout Endocrine: Yes: Diabetes Mellitus (c/b peripheral neuropathy) Dermatology: Yes: 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 History of Recent Travel: No Home Medications - Allergies Allergies/Adverse Reactions: Allergies Allergy/AdvReac Type Severity Reaction Status Date / Time No Known Drug Allergies Allergy Verified 12/05/18 15:11 TOMATO SAUCE ONLY Allergy Uncoded 12/05/18 15:11 - Home Medications Home Medications: Ambulatory Orders Acetaminophen [Tylenol] 650 mg PO BID PRN 08/07/17 Amlodipine Besylate 5 mg PO DAILY 08/07/17 Ammonium Lactate [Skin Treatment] 1 applic TP DAILY 08/07/17 Ascorbic Acid [Vitamin C -] 500 mg PO DAILY 08/07/17 Aspirin [ASA -] 81 mg PO DAILY 08/07/17 Atorvastatin Ca [Lipitor] 40 mg PO HS 08/07/17 Bacitracin - [Bacitracin Topical Ointment -] 1 applic TP PRN PRN 08/07/17 Gabapentin 300 mg PO BID 08/07/17 Hypromellose 0.5% Opth Soln [Artificial Tears] 1 drop OU QID PRN 08/07/17 Insulin Glargine,Hum.rec.anlog [Lantus (10mL VIAL) -] 35 units SQ HS 08/07/17 Isosorbide Mononitrate [Isosorbide Mononitrate ER] 30 mg PO DAILY 08/07/17 Loratadine [Claritin] 10 mg PO DAILY 08/07/17 Multivitamin [One Daily] 1 each PO DAILY 08/07/17 Pantoprazole Sodium 40 mg PO BID 08/07/17 Polyethylene Glycol 3350 [Miralax 119 gm Btl -] 17 gm PO DAILY 08/07/17 Ramipril 10 mg PO DAILY 08/07/17 Ticagrelor [Brilinta] 60 mg PO BID 08/07/17 Furosemide [Lasix -] 40 mg PO BID #14 tablet MDD 2 08/14/17 Insulin (Levemir) [Levemir Vial] 15 units SQ AM ml 08/14/17 Sitagliptin Phosphate [Januvia -] 25 mg PO DAILY@0700 tab 08/14/17 Tamsulosin HCl [Flomax -] 0.4 mg PO DAILY@0830 #30 cap.er.24h MDD 1 08/14/17 predniSONE [Deltasone -] 2.5 mg PO DAILY #7 tablet MDD 2 08/14/17 Amox-Tr/K Cl [Augmentin - 875Mg Tablet] 1 tab PO BID #20 tablet 12/01/18 Allopurinol [Zyloprim -] 100 mg PO DAILY 12/06/18 Glimepiride 2 mg PO DAILY 12/06/18 Valacyclovir HCl [Valtrex] 1,000 mg PO BID 12/06/18 Family Disease History - Family Disease History Family Disease History: Diabetes: Sister ( of CLOUD rt cirrhosis ), Heart Disease: Father ( at age 33 with IL), Brother ( after CABG), CA: Mother ( of Ovarian cancer at age 57), Other: Sister Review of Systems - Review of Systems Constitutional: reports: Malaise. denies: Chills Eyes: reports: No Symptoms HENT: reports: No Symptoms Cardiovascular: reports: Edema, Shortness of Breath Respiratory: reports: SOB, SOB on Exertion Gastrointestinal: reports: Bloating Genitourinary: reports: No Symptoms Musculoskeletal: reports: No Symptoms Integumentary: reports: No Symptoms Neurological: reports: No Symptoms Endocrine: reports: No Symptoms Hematology/Lymphatic: reports: No Symptoms Psychiatric: reports: No Symptoms Physical Exam Vital Signs: Vital Signs Temperature 98.1 F 12/09/18 06:00 Pulse Rate 61 12/09/18 06:00 Respiratory Rate 18 12/09/18 06:00 Blood Pressure 102/41 L 12/09/18 06:00 O2 Sat by Pulse Oximetry (%) 92 L 12/09/18 06:00 Constitutional: Yes: Calm Eyes: Yes: Conjunctiva Clear HENT: Yes: Atraumatic Cardiovascular: Yes: S1, S2 Respiratory: Yes: On Nasal O2, Rhonchi, SOB Gastrointestinal: Yes: Soft, Abdomen, Obese Renal/: Yes: WNL Musculoskeletal: Yes: Muscle Weakness Edema: Yes Edema: LLE: 2+, RLE: 2+ Neurological: Yes: Oriented Psychiatric: Yes: Oriented Labs: CBC, BMP 12/09/18 07:30 12/09/18 07:30 Selected Entries 12/07/18 12/07/18 12/08/18 16:30 22:00 02:01 Blood Pressure 90/44 L 96/48 L 99/42 L 12/08/18 12/08/18 12/08/18 06:00 07:56 10:00 Blood Pressure 99/47 L 98/38 L 89/57 L 12/08/18 12/08/18 12/09/18 14:43 18:00 02:00 Blood Pressure 87/41 L 89/43 L 103/57 L 12/09/18 06:00 Blood Pressure 102/41 L Laboratory Tests 09/15/17 09/16/17 09/17/17 18:45 09:50 09:26 Hgb Sodium Potassium Chloride Carbon Dioxide Anion Gap Creatinine 1.5 H 1.3 H 1.1 H Random Glucose Calcium Phosphorus 12/05/18 12/06/18 12/07/18 15:40 05:30 05:30 Hgb Sodium Potassium Chloride Carbon Dioxide Anion Gap Creatinine 1.2 1.1 1.1 Random Glucose Calcium Phosphorus 12/08/18 12/09/18 12/09/18 05:30 07:30 07:30 Hgb 9.5 L Sodium 135 L Potassium 4.1 Chloride 98 Carbon Dioxide 28 Anion Gap 8 Creatinine 1.9 H 2.4 H Random Glucose 120 H Calcium 8.0 L Phosphorus 12/09/18 07:30 Hgb Sodium Potassium Chloride Carbon Dioxide Anion Gap Creatinine Random Glucose Calcium Phosphorus 5.2 H Imaging - Results Chest X-ray: Report Reviewed Problem List - Problems (1) Anemia Code(s): D64.9 - ANEMIA, UNSPECIFIED Qualifiers: Anemia type: unspecified type Qualified Code(s): D64.9 - Anemia, unspecified (2) Angina at rest Code(s): I20.8 - OTHER FORMS OF ANGINA PECTORIS (3) CAD (coronary artery disease) Code(s): I25.10 - ATHSCL HEART DISEASE OF [place] CORONARY ARTERY W/O ANG PCTRS Qualifiers: Coronary Disease-Associated Artery/Lesion type: unspecified vessel or lesion type [place] vs. transplanted heart: [place] heart Associated angina: with unstable angina Qualified Code(s): I25.110 - Atherosclerotic heart disease of [place] coronary artery with unstable angina pectoris (4) Renal failure Code(s): N19 - UNSPECIFIED KIDNEY FAILURE Qualifiers: Renal failure chronicity: chronic Chronic kidney disease stage: unspecified stage Qualified Code(s): N18.9 - Chronic kidney disease, unspecified (5) CKD (chronic kidney disease) Code(s): N18.9 - CHRONIC KIDNEY DISEASE, UNSPECIFIED Assessment/Plan Current Medications Generic Name Dose Route Start Last Admin Trade Name Freq PRN Reason Stop Dose Admin Albuterol/Ipratropium 1 amp 12/09/18 08:00 12/09/18 11:07 Duoneb - NEB 1 amp RQID JOSE ELIAS Administration Amlodipine Besylate 5 mg 12/06/18 10:00 12/09/18 09:08 Norvasc - PO 5 mg DAILY JOSE ELIAS Administration Atorvastatin Calcium 40 mg 12/05/18 22:00 12/08/18 21:29 Lipitor - PO 40 mg HS JOSE ELIAS Administration Docusate Sodium 100 mg 12/07/18 10:00 12/09/18 09:08 Colace - PO 100 mg DAILY JOSE ELIAS Administration Ferrous Sulfate 325 mg 12/07/18 10:00 12/09/18 08:52 Feosol - PO 325 mg BIDWM JOSE ELIAS Administration Gabapentin 300 mg 12/05/18 22:00 12/09/18 13:49 Neurontin - PO 300 mg TID JOSE ELIAS Administration Ampicillin Sodium/Sulbactam 100 mls @ 200 mls/hr 12/08/18 18:00 12/09/18 09: 10 Sodium 3 gm/ Sodium Chloride IVPB 200 mls/hr Q8H-IV JOSE ELIAS Administration Sodium Chloride 1,000 mls @ 70 mls/hr 12/09/18 12:00 12/09/18 13:49 Normal Saline - IV 12/10/18 11:51 70 mls/hr ASDIR JOSE ELIAS Administration Insulin Aspart 1 vial 12/06/18 22:00 12/09/18 11:58 Novolog Vial Sliding Scale - SQ 2 unit ACHS JOSE ELIAS Administration Protocol Isosorbide Mononitrate 30 mg 12/06/18 10:00 12/09/18 09:08 Imdur - PO 30 mg DAILY JOSE ELIAS Administration Nitroglycerin 0.4 mg 12/05/18 20:09 Nitrostat - SL Q5M PRN FOR CHEST PAIN Pantoprazole Sodium 40 mg 12/09/18 10:00 12/09/18 11:58 Protonix Iv IVPUSH 40 mg BID JOSE ELIAS Administration Polyethylene Glycol 17 gm 12/06/18 10:00 12/09/18 09:08 Miralax (For Daily Use) - PO 17 grams DAILY JOSE ELIAS Administration Ramipril 10 mg 12/06/18 10:00 12/09/18 09:08 Altace - PO 10 mg DAILY JOSE ELIAS Administration chart labs and meds reviewed Impression 1. CAROLYN 2. dyspnea 3. CAD 4. HTN 5. DM 6. CHF 7. hyperlipidemia 8. renal cyst 9. CKD 10. hx of urinary retention Plan - place cavanaugh - stop fluids - stop amlodipine - hold ramipril - monitor urine output - get renal and bladder ultrasound - avoid hypotension - r/o obstructive disease, may have atn as well as she was hypotensive - check ua and lytes Dr Hua
--- NOTE | 2018-12-09 17:08 | CONSULT ---
- Consultation REQUESTING PROVIDER: CONSULT REQUEST: We have been asked to surgically evaluate this patient for ( venous stasis/avulse toenail). PCP:Modesto Saeed MD HISTORY OF PRESENT ILLNESS: 83 y/o F w/ PMHx HTN, HLD, DM, CAD, [place] s/p stent x1 on ASA/Brilinta, HFpEF, CKD , from [facility], [place], p/w substernal chest pain x 2 days. Vascular consulted for le wounds. Pt has small scrape over L anterior tibia which she states is common due to her edema and is healing. had avulsed L great toenail a few weeks back which she reports has been healing with Bacitracin. Denies cp/sob, n/v/d. At baseline, pt is nonambulatory x 4 years after R hip fx/fall. Lives in Assisted living facility. Has son who visits her often and is involved in her care. PMHx: as above PSHx: RFA LLE, cardiac stent Home Medications Medication Instructions Recorded Acetaminophen [Tylenol] 650 mg PO BID PRN 08/07/17 Amlodipine Besylate 5 mg PO DAILY 08/07/17 Ammonium Lactate [Skin Treatment] 1 applic TP DAILY 08/07/17 Ascorbic Acid [Vitamin C -] 500 mg PO DAILY 08/07/17 Aspirin [ASA -] 81 mg PO DAILY 08/07/17 Atorvastatin Ca [Lipitor] 40 mg PO HS 08/07/17 Bacitracin - [Bacitracin Topical 1 applic TP PRN PRN 08/07/17 Ointment -] Gabapentin 300 mg PO BID 08/07/17 Hypromellose 0.5% Opth Soln 1 drop OU QID PRN 08/07/17 [Artificial Tears] Insulin Glargine,Hum.rec.anlog 35 units SQ HS 08/07/17 [Lantus (10mL VIAL) -] Isosorbide Mononitrate [Isosorbide 30 mg PO DAILY 08/07/17 Mononitrate ER] Loratadine [Claritin] 10 mg PO DAILY 08/07/17 Multivitamin [One Daily] 1 each PO DAILY 08/07/17 Pantoprazole Sodium 40 mg PO BID 08/07/17 Polyethylene Glycol 3350 [Miralax 17 gm PO DAILY 08/07/17 119 gm Btl -] Ramipril 10 mg PO DAILY 08/07/17 Ticagrelor [Brilinta] 60 mg PO BID 08/07/17 Furosemide [Lasix -] 40 mg PO BID #14 tablet MDD 2 08/14/17 Insulin (Levemir) [Levemir Vial] 15 units SQ AM ml 08/14/17 Sitagliptin Phosphate [Januvia -] 25 mg PO DAILY@0700 tab 08/14/17 Tamsulosin HCl [Flomax -] 0.4 mg PO DAILY@0830 #30 08/14/17 cap.er.24h MDD 1 predniSONE [Deltasone -] 2.5 mg PO DAILY #7 tablet MDD 2 08/14/17 Amox-Tr/K Cl [Augmentin - 875Mg 1 tab PO BID #20 tablet 12/01/18 Tablet] Allopurinol [Zyloprim -] 100 mg PO DAILY 12/06/18 Glimepiride 2 mg PO DAILY 12/06/18 Valacyclovir HCl [Valtrex] 1,000 mg PO BID 12/06/18 Allergies Allergy/AdvReac Type Severity Reaction Status Date / Time No Known Drug Allergies Allergy Verified 12/05/18 15:11 TOMATO SAUCE ONLY Allergy Uncoded 12/05/18 15:11 REVIEW OF SYSTEMS: CONSTITUTIONAL: Absent: fever, chills GASTROINTESTINAL: Absent: abdominal pain PHYSICAL EXAM: GENERAL: Awake, alert, and fully oriented, in no acute distress. Son bedside. HEAD: Normal with no signs of trauma. LOWER EXTREMITIES: B/L les with 2+ pitting edema to knees. Small scab over left anterior tibia, no erythema no drainage. L great toenail avulsed, clean based, no erythema no drainage, well healing, No fluctuance. Sensation grossly diminished b/l feet (chronic neuropathy per pt). Wiggles toes b/l Vital Signs Temperature 98.5 F 12/09/18 14:44 Pulse Rate 60 12/09/18 14:44 Respiratory Rate 18 12/09/18 15:18 Blood Pressure 100/51 L 12/09/18 14:44 O2 Sat by Pulse Oximetry (%) 93 L 12/09/18 15:18 Lab Results WBC 9.0 K/mm3 (4.0-10.0) 12/09/18 07:30 RBC 3.65 M/mm3 (3.60-5.2) 12/09/18 07:30 Hgb 9.5 GM/dL (10.7-15.3) L 12/09/18 07:30 Hct 29.6 % (32.4-45.2) L 12/09/18 07:30 MCV 81.0 fl (80-96) 12/09/18 07:30 MCHC 32.1 g/dl (32.0-36.0) 12/09/18 07:30 RDW 18.5 % (11.6-15.6) H 12/09/18 07:30 Plt Count 311 K/MM3 (134-434) 12/09/18 07:30 Sodium 135 mmol/L (136-145) L 12/09/18 07:30 Potassium 4.1 mmol/L (3.5-5.1) 12/09/18 07:30 Chloride 98 mmol/L (98-107) 12/09/18 07:30 Carbon Dioxide 28 mmol/L (21-32) 12/09/18 07:30 Anion Gap 8 MMOL/L (8-16) 12/09/18 07:30 BUN 27 mg/dL (7-18) H 12/09/18 07:30 Creatinine 2.4 mg/dL (0.55-1.3) H 12/09/18 07:30 Random Glucose 120 mg/dL (74-106) H 12/09/18 07:30 Calcium 8.0 mg/dL (8.5-10.1) L 12/09/18 07:30 Blood Type A POSITIVE 12/05/18 19:50 Antibody Screen Negative 12/05/18 19:50 INR 1.05 (0.83-1.09) 12/08/18 05:30 Venous duplex (12/05/18): no dvt b/l le's. A/P: 83 y/o F w/ PMHx HTN, HLD, DM, CAD, [place] s/p stent x1 on ASA/Brilinta, HFpEF, CKD , from [facility], [place], p/w substernal chest pain x 2 days. Vascular consulted for le wounds. L great toe w/ avulsed toenail, no signs of infection -Apply Bactrian to L great toe -Apply krupa wraps to b/l les (from met heads to below knee) -Elevate b/l le's above level of heart -Diuresis per Cardiology/primary team d/w attending Dr Hernandez
--- NOTE | 2018-12-09 17:39 | PN ---
Progress Note (short form) - Note Progress Note: scheduled for EGD , patient with severe SOB while lying dowm. Patient received 2 unots of PRBC with adewuate rise in HGB. She is on ASA and Brilinta previously. At this time patelliottemn is high risk for any GI procedures. Will continue conservative management. patient did not undergo EGD last Sunday as patient received 1 unit PRBC and will need another unit prior to EGD. No active bleeding noted the past 3 days. Problem List - Problems (1) GI bleed Code(s): K92.2 - GASTROINTESTINAL HEMORRHAGE, UNSPECIFIED
[2018-12-09 18:11] LABS: URINE APPEARANCE CLEAR; URINE BILIRUBIN NEGATIVE (NEGATIVE); URINE COLOR DK YELLOW; URINE GLUCOSE (UA) NEGATIVE (NEGATIVE); URINE KETONE TRACE (NEGATIVE); URINE LEUK ESTERASE NEGATIVE (NEGATIVE); URINE NITRITE NEGATIVE (NEGATIVE); URINE PROTEIN NEGATIVE (NEGATIVE); URINE UROBILINOGEN 0.2 mg/dL (0.2-1.0)
[2018-12-09] MEDS: ATORVASTATIN CA 40 MG TABLET (FP) PO SCH (22:17)
[2018-12-10] MEDS: AMPICILLIN NA/SULBACTAM NA 3 GM in SODIUM CHLORIDE 100 ML IVPB SCH ×3 (01:01→17:21)
[2018-12-10] MEDS: INSULIN SLIDING SCALE (NOVOLOG) 1 VIAL SQ SCH ×4 (06:25→22:01)
[2018-12-10] MEDS: GABAPENTIN 300 MG CAPSULE (FP) PO SCH ×3 (06:25→22:01)
[2018-12-10 06:40] LABS: HEMATOCRIT 26.4 % (32.4-45.2); HEMOGLOBIN 8.5 GM/dL (10.7-15.3); MCH 26.2 pg (25.7-33.7); MCHC 32.3 g/dl (32.0-36.0); MEAN CELL VOLUME 81.2 fl (80-96); MEAN PLT VOLUME 9.1 fl (7.5-11.1); PLATELET COUNT 281 K/MM3 (134-434); RBC 3.25 M/mm3 (3.60-5.2); WHITE BLOOD COUNT 12.8 K/mm3 (4.0-10.0)
[2018-12-10 07:12] LABS: ALBUMIN 2.8 g/dl (3.4-5.0); ALK PHOS 134 U/L (45-117); ANION GAP 11 MMOL/L (8-16); BILIRUBIN,TOTAL 0.3 mg/dL (0.2-1); BLOOD UREA NITROGEN 36 mg/dL (7-18); CALCIUM 7.7 mg/dL (8.5-10.1); CHLORIDE 94 mmol/L (98-107); CO2 24 mmol/L (21-32); CREATININE 2.8 mg/dL (0.55-1.3); GLUCOSE,RANDOM 221 mg/dL (74-106); POTASSIUM 4.4 mmol/L (3.5-5.1); SGOT/AST 7 U/L (15-37); SGPT/ALT 14 U/L (13-61); SODIUM 129 mmol/L (136-145)
[2018-12-10] MEDS: ALBUTEROL SO4 2.5/IPRATROPIUM 0.5 INH SOL 3 ML VIAL.NEB. NEB SCH ×4 (07:17→20:15)
[2018-12-10] MEDS ORDERED: PT OWN MED DRAWER 7, Y5N ONE ×3 (08:44→17:21)
[2018-12-10] MEDS: DOCUSATE SODIUM 100 MG CAPSULE (FP) PO SCH (09:03)
[2018-12-10] MEDS: ISOSORBIDE MONONITRATE 30 MG TAB.SR.24H (FP) PO SCH (09:03)
[2018-12-10] MEDS: FERROUS SO4 325 MG TABLET (FP) PO SCH ×2 (09:03→17:21)
[2018-12-10] MEDS: POLYETHYLENE GLYCOL 3350 119 GM BTL PO SCH (09:03)
[2018-12-10] MEDS: PANTOPRAZOLE SODIUM 40 MG VIAL IVPUSH SCH ×2 (09:03→22:01)
--- NOTE | 2018-12-10 10:38 | PN ---
Progress Note (short form) - Note Progress Note: s: stable sob. no chest pain, palps, dizziness. Current Medications Albuterol/Ipratropium (Duoneb -) 1 amp NEB RQID [facility] Last Admin: 12/10/18 07:17 Dose: 1 amp Atorvastatin Calcium (Lipitor -) 40 mg PO HS [facility] Last Admin: 12/09/18 22:17 Dose: 40 mg Docusate Sodium (Colace -) 100 mg PO DAILY [facility] Last Admin: 12/10/18 09:03 Dose: 100 mg Ferrous Sulfate (Feosol -) 325 mg PO BIDWM [facility] Last Admin: 12/10/18 09:03 Dose: 325 mg Gabapentin (Neurontin -) 300 mg PO TID [facility] Last Admin: 12/10/18 06:25 Dose: 300 mg Ampicillin Sodium/Sulbactam (Sodium 3 gm/ Sodium Chloride) 100 mls @ 200 mls/ hr IVPB Q8H-IV [facility] Last Admin: 12/10/18 09:22 Dose: 200 mls/hr Insulin Aspart (Novolog Vial Sliding Scale -) 1 vial SQ ACHS [facility]; Protocol Last Admin: 12/10/18 06:25 Dose: 2 unit Isosorbide Mononitrate (Imdur -) 30 mg PO DAILY [facility] Last Admin: 12/10/18 09:03 Dose: 30 mg Nitroglycerin (Nitrostat -) 0.4 mg SL Q5M PRN PRN Reason: FOR CHEST PAIN Pantoprazole Sodium (Protonix Iv) 40 mg IVPUSH BID [facility] Last Admin: 12/10/18 09:03 Dose: 40 mg Polyethylene Glycol (Miralax (For Daily Use) -) 17 gm PO DAILY [facility] Last Admin: 12/10/18 09:03 Dose: 17 gm Vital Signs Period Temp Pulse Resp BP Sys/[place]erson Pulse Ox Last 24 Hr 97.4 F-98.5 F 60-65 18-20 85-110/43-55 93-93 Constitutional: Yes: No Distress, Calm Eyes: No: Sclera Icterus HENT: No: Nasal Congestion Cardiovascular: Yes: Regular Rate and Rhythm, S1, S2, Other (PMI non diplaced). No: JVD (in chair), Gallop, Murmur Respiratory: Yes: CTA Bilaterally. No: Accessory Muscle Use Gastrointestinal: Yes: Normal Bowel Sounds, Soft. No: Tenderness Musculoskeletal: Yes: Other (No kyphosis) Extremities: No: Cold, Cyanosis Edema: Yes (1+ pretib) Integumentary: No: Jaundice Neurological: Yes: Alert, Oriented (x3) Psychiatric: No: Agitated Assessment/Plan 06/2017 mibi: Stress test + for moderate intensity ischemia of posterior and lateral wall. ? TID LHC 10/12: DAYANA to mLAD, PTCA of D1. residual 50-60% mRCA. OM1 chronically occluded fills via LAD collaterals Echo 12/13: nl LV/EF. nl RV. trace MR/TR, no RVSP. Echo 09/2017: tds; nl lv/rv, no sig valve path Echo 04/12: TDS. normal overall LVSF, can't r/o RWMAs. mild-mod RVE with mild hypo. mild-mod TR. RVSP 30-40 Echo 08/11: nl LV, nl RV, mild LAE, valve fxn WNL CXR: clear lungs/pleura ECG: sr, no ischemic changes tele: sinus, sinus ann a/p: chest pain: -no signs acs or chf -trop neg x2, ECG non-ischemic -06/2017 mibi was reviewed by dr miller and felt to show only minimal inferolateral ischemia in area of patient's known residual disease, no significant TID is seen. -suspect symptoms were due to severe anemia, monitor symptoms after prbcs sob, PND/orthopnea, hypoxia: -c/o sob when gets oob to bathroom, then orthopnea when returns to bed which resolves on its own -? JVD--tds exam -rales at bases. repeat CXR and repeat BNP -on lasix 40 po bid at home. received 40 IV x 2 doses yesterday. -12/07: lasix 40 IV x 1 dose now, then continue 40 iv bid for now--further dosing tbd -12/08: suspected volume up but creat bumped 1.1->1.9, lasix held -12/09: bun/creat 27/2.4. hypotensive to 80s overnight--she is likely dry. suspect non-cardiac cause of her sob. this creatinine behavior to moderate dose lasix is not consistent with elevated circulating fluid volume/hi filling pressures, echo images limited review today: RV enlarged but function preserved , no cause of cardiac output obstruction present.. suspect her nocturnal sob/ hypoxia is related to pulm etiology (pt on home O2 for few yrs, doesn't see pum) --rec pulm evaluation. -12/10: remains hypotensive, euvolemic to dry on exam. holding diuretics. pulm consulted -would not pursue EGD until oxygenation is optimized CAROLYN: -holding diuretics -cont gentle IVF -BUN:creat not typical prerenal pattern, Cr rising - renal consulted anemia: -transfused -H/H currently stable -GI eval pending -asa/brilinta on hold CAD, prior h/o ACS (UA presentation) with PCI of LAD: -plan as above -residual moderate angiographic stenosis of mRCA, and [employer] EN[employer] CL[employer] of OM fed by LAD collaterals -pt is >3 yrs from prior PCI, hence dr miller plans to stop brilinta (bleed risk > ischemia risk) -resume only asa 81 qd once ok with GI -cont statin, imdur, ccb chronic diast CHF, venous ins'y/edema: -on lasix 40 bid at home. -suspect euvolemic to dry at present--as above HTN: -stable on current meds -same plan
--- NOTE | 2018-12-10 11:29 | PN ---
Progress Note (short form) - Note Progress Note: PULMONARY CONSULTATION DICTATED 12/10/18 IMP ACUTE ON CHRONIC HYPOXEMIC RESPIRATORY FAILURE ACUTE ON CHRONIC CHF DM ASHD S/P WA,S/P STENT ACUTE ON CHRONIC KIDNEY DISEASE ? FRANK ANEMIA PLAN LASIX PER CARDIOLOGY INHALED BRONCHODILATORS CHEST CT DAILY WT MONITOR LYTES,RENAL FUNCTION,H+H BIPAP AT NIGHT OUTPATIENT SLEEP STUDY OUTPATIENT PFTS ABG ON RA DR MCKINLEY Problem List - Problems (1) Anemia Code(s): D64.9 - ANEMIA, UNSPECIFIED Qualifiers: Anemia type: unspecified type Qualified Code(s): D64.9 - Anemia, unspecified (2) CAD (coronary artery disease) Code(s): I25.10 - ATHSCL HEART DISEASE OF [place] CORONARY ARTERY W/O ANG PCTRS Qualifiers: Coronary Disease-Associated Artery/Lesion type: unspecified vessel or lesion type [place] vs. transplanted heart: [place] heart Associated angina: with unstable angina Qualified Code(s): I25.110 - Atherosclerotic heart disease of [place] coronary artery with unstable angina pectoris (3) Chest pain Code(s): R07.9 - CHEST PAIN, UNSPECIFIED Qualifiers: Chest pain type: chest pain due to myocardial ischemia Ischemic chest pain type: unstable angina pectoris Qualified Code(s): I20.0 - Unstable angina (4) Renal failure Code(s): N19 - UNSPECIFIED KIDNEY FAILURE Qualifiers: Renal failure chronicity: chronic Chronic kidney disease stage: unspecified stage Qualified Code(s): N18.9 - Chronic kidney disease, unspecified (5) CHF (congestive heart failure) Code(s): I50.9 - HEART FAILURE, UNSPECIFIED Qualifiers: Qualified Code(s): I50.32 - Chronic diastolic (congestive) heart failure (6) Diabetes Code(s): E11.9 - TYPE 2 DIABETES MELLITUS WITHOUT COMPLICATIONS Qualifiers: Diabetes mellitus type: type 2 Diabetes mellitus senior care insulin use: unspecified senior care insulin use status Diabetes mellitus complication status : with hypoglycemia Diabetes mellitus complication detail: without coma Qualified Code(s): E11.649 - Type 2 diabetes mellitus with hypoglycemia without coma (7) Diastolic heart failure Code(s): I50.30 - UNSPECIFIED DIASTOLIC (CONGESTIVE) HEART FAILURE Qualifiers: Heart failure chronicity: chronic Qualified Code(s): I50.32 - Chronic diastolic (congestive) heart failure (8) Dyspnea Code(s): R06.00 - DYSPNEA, UNSPECIFIED (9) Edema Code(s): R60.9 - EDEMA, UNSPECIFIED (10) Acute renal failure superimposed on chronic kidney disease Code(s): N17.9 - ACUTE KIDNEY FAILURE, UNSPECIFIED; N18.9 - CHRONIC KIDNEY DISEASE, UNSPECIFIED (11) Acute on chronic respiratory failure with hypoxemia Code(s): J96.21 - ACUTE AND CHRONIC RESPIRATORY FAILURE WITH HYPOXIA
[2018-12-10] MEDS ORDERED: FUROSEMIDE 40 MG/4 ML INJECTABLE VIAL IVPUSH ONE (11:31)
--- NOTE | 2018-12-10 12:07 | PN ---
Teaching Attending Note Name of Resident: Greg Gomze ATTENDING PHYSICIAN STATEMENT I saw and evaluated the patient. I reviewed the resident's note and discussed the case with the resident. I agree with the resident's findings and plan as documented. SUBJECTIVE: asymptomatic. states breathing has been fine and has not felt short of breath. states she feels very edematous. currently receiving nebulizer treatment. denies CP, SOB, fever, chills, cough, N/V/C/D OBJECTIVE: Last Vital Signs Temp Pulse Resp BP Pulse Ox 98.4 F 63 20 110/54 L 93 L 12/10/18 10:00 12/10/18 10:00 12/10/18 10:00 12/10/18 10:00 12/09/18 21:00 Intake & Output 12/07/18 12/08/18 12/09/18 12/10/18 23:59 23:59 23:59 23:59 Intake Total 1520 1580 320 620 Output Total 279 44 2656 150 Balance 1020 1530 -1230 470 Weight 192 lb 192 lb 191 lb 205 lb General NAD CV S1 S2 RRR no murmur/rub/gallop Lungs decreased breath sounds B/L bases. no wheezing extremiteis 3+ PItting edema B/L ASSESSMENT AND PLAN: 83 year old female with HTN, HLD, DM 2, CAD s/p [place] s/p PCI/Stent (on Aspirin, Brilinta), CRF sec to Chronic Diastolic CHF, CKD 3, s/p chlecystecomy/ hysterectomy/tonsillectomy from [facility], currently on Augmentin for infected wound on R great toe, now presents with intermittent substernal chest pain, initially on exertion, now at rest. Also complained of worsening LE edema. 1. Angina secondary to Acute Blood Loss Anemia secondary to GI bleed, likely Upper. no repeat episodes of CP or bleeding. received 2 units PRBC this hospital stay. was scheduled for EGD yesterday however was cancelled due to hypoxia. would continue to hold procedure at this time due to persistent hypoxia although overall improved. slight drop in Hgb today but no reports of bleeding. asa/brilinta held. cardio and GI on board 2. Acute on chronic Respiratory failure- unclear from volume overload vs underlying pulmonary disease.currently 89% on 3L NC (uses 2L at home) CXR shwoing volume overlaod and questionable infiltrate. has not complained of fever or cough, does have a slight leukocytosis which could more liekly be due to steroids given yesterday. will get CT chest to better evaluate. lasix 40mg IVP again. cont nebs. pulmonary consulted 3. CAROLYN- due to medications vs hypoperfusion with intermittent hypotension. renal u/s and urine studies ordered. monitor Cr. nephro consulted. 4. HTN- now hypotensive. cont to hold antihypertensives./ will re-start as needed 5. R toe infection- augmentin switch to unasyn. will need to determine expected duration 6. DVT ppx- SCD.
--- NOTE | 2018-12-10 12:13 | PN ---
Physical Exam: SUBJECTIVE: Patient seen and examined at bedside this morning. She endorses improvement of her shortness of breath. Patient endorses increasing abdominal distention and pain. She endorses one solid, brown bowel movement without misha blood. She denies any bleeding. Patient denies subjective fevers, chills, shortness of breath, chest pain, palpitations, nausea, vomiting. OBJECTIVE: Vital Signs Period Temp Pulse Resp BP Sys/Emerson Pulse Ox Last 24 Hr 97.4 F-98.5 F 60-65 18-20 85-110/43-55 93-93 GENERAL: The patient is awake, alert, and fully oriented, in no acute distress. HEAD: Normocephalic, atraumatic. EYES: PERRL, extraocular movements intact, sclera anicteric, conjunctiva clear. ENT: Oropharynx clear, without erythema or exudates. Moist mucous membranes. NECK: Trachea midline, full range of motion. Supple without lymphadenopathy. LUNGS: Good inspiratory effort with poor air entry bilaterally. Bibasilar crackles auscultated bilaterally. No accessory muscle use. HEART: Regular rate and rhythm, S1, S2 auscultated with holosystolic murmur at right upper sternal border. ABDOMEN: Soft, distended, diffusely tender to deep palpation x4 quadrants, no rebound tenderness, no guarding. Normoactive bowel sounds x4 quadrants. No hepatosplenomegaly palpated or percussed. EXTREMITIES: 2+ radial, 1+ dorsalis pedis pulses bilaterally. warm, well perfused. 2+ lower extremity edema, with thickened skin, and chronic venous stasis changes bilaterally. NEUROLOGICAL: Cranial nerves II through XII grossly intact. Normal speech. No gross focal deficits. PSYCH: Normal mood, normal affect upon my encounter. Laboratory Results - last 24 hr 12/05/18 12/09/18 12/09/18 19:50 15:45 16:30 WBC RBC Hgb Hct MCV MCH MCHC RDW Plt Count MPV Sodium Potassium Chloride Carbon Dioxide Anion Gap BUN Creatinine Creat Clearance w eGFR POC Glucometer 295 Random Glucose Calcium Total Bilirubin AST ALT Alkaline Phosphatase Total Protein Albumin Urine Color Dk yellow Urine Appearance Clear Urine pH 5.0 Ur Specific [place] 1.022 Urine Protein Negative Urine Glucose (UA) Negative Urine Ketones Trace H Urine Blood Negative Urine Nitrite Negative Urine Bilirubin Negative Urine Urobilinogen 0.2 Ur Leukocyte Esterase Negative Ur Random Sodium Ur Random Potassium Ur Random Chloride Urine Creatinine Blood Type A POSITIVE Antibody Screen Negative Crossmatch See Detail 12/09/18 12/09/18 12/09/18 18:00 18:00 22:09 WBC RBC Hgb Hct MCV MCH MCHC RDW Plt Count MPV Sodium Potassium Chloride Carbon Dioxide Anion Gap BUN Creatinine Creat Clearance w eGFR POC Glucometer 353 Random Glucose Calcium Total Bilirubin AST ALT Alkaline Phosphatase Total Protein Albumin Urine Color Urine Appearance Urine pH Ur Specific [place] Urine Protein Urine Glucose (UA) Urine Ketones Urine Blood Urine Nitrite Urine Bilirubin Urine Urobilinogen Ur Leukocyte Esterase Ur Random Sodium < 18 L Ur Random Potassium 46.7 Ur Random Chloride 13 L Urine Creatinine 150.0 Blood Type Antibody Screen Crossmatch 12/10/18 12/10/18 12/10/18 05:30 05:30 06:03 WBC 12.8 H RBC 3.25 L Hgb 8.5 L Hct 26.4 L MCV 81.2 MCH 26.2 MCHC 32.3 RDW 18.0 H Plt Count 281 MPV 9.1 Sodium 129 L Potassium 4.4 Chloride 94 L Carbon Dioxide 24 Anion Gap 11 BUN 36 H Creatinine 2.8 H Creat Clearance w eGFR 16.06 POC Glucometer 214 Random Glucose 221 H Calcium 7.7 L Total Bilirubin 0.3 AST 7 L ALT 14 Alkaline Phosphatase 134 H Total Protein 6.0 L Albumin 2.8 L Urine Color Urine Appearance Urine pH Ur Specific [place] Urine Protein Urine Glucose (UA) Urine Ketones Urine Blood Urine Nitrite Urine Bilirubin Urine Urobilinogen Ur Leukocyte Esterase Ur Random Sodium Ur Random Potassium Ur Random Chloride Urine Creatinine Blood Type Antibody Screen Crossmatch 12/10/18 11:27 WBC RBC Hgb Hct MCV MCH MCHC RDW Plt Count MPV Sodium Potassium Chloride Carbon Dioxide Anion Gap BUN Creatinine Creat Clearance w eGFR POC Glucometer 237 Random Glucose Calcium Total Bilirubin AST ALT Alkaline Phosphatase Total Protein Albumin Urine Color Urine Appearance Urine pH Ur Specific [place] Urine Protein Urine Glucose (UA) Urine Ketones Urine Blood Urine Nitrite Urine Bilirubin Urine Urobilinogen Ur Leukocyte Esterase Ur Random Sodium Ur Random Potassium Ur Random Chloride Urine Creatinine Blood Type Antibody Screen Crossmatch Active Medications Generic Name Dose Route Start Last Admin Trade Name Freq PRN Reason Stop Dose Admin Albuterol/Ipratropium 1 amp 12/09/18 08:00 12/10/18 07:17 Duoneb - NEB 1 amp RQID JOSE ELIAS Administration Atorvastatin Calcium 40 mg 12/05/18 22:00 12/09/18 22:17 Lipitor - PO 40 mg HS JOSE ELIAS Administration Docusate Sodium 100 mg 12/07/18 10:00 12/10/18 09:03 Colace - PO 100 mg DAILY JOSE ELIAS Administration Ferrous Sulfate 325 mg 12/07/18 10:00 12/10/18 09:03 Feosol - PO 325 mg BIDWM JOSE ELIAS Administration Gabapentin 300 mg 12/05/18 22:00 12/10/18 06:25 Neurontin - PO 300 mg TID JOSE ELIAS Administration Ampicillin Sodium/Sulbactam 100 mls @ 200 mls/hr 12/08/18 18:00 12/10/18 09: 22 Sodium 3 gm/ Sodium Chloride IVPB 200 mls/hr Q8H-IV JOSE ELIAS Administration Insulin Aspart 1 vial 12/06/18 22:00 12/10/18 11:28 Novolog Vial Sliding Scale - SQ 2 unit ACHS JOSE ELIAS Administration Protocol Isosorbide Mononitrate 30 mg 12/06/18 10:00 12/10/18 09:03 Imdur - PO 30 mg DAILY JOSE ELIAS Administration Nitroglycerin 0.4 mg 12/05/18 20:09 Nitrostat - SL Q5M PRN FOR CHEST PAIN Pantoprazole Sodium 40 mg 12/09/18 10:00 12/10/18 09:03 Protonix Iv IVPUSH 40 mg BID JOSE LEIAS Administration Polyethylene Glycol 17 gm 12/06/18 10:00 12/10/18 09:03 Miralax (For Daily Use) - PO 17 gm DAILY JOSE ELIAS Administration ASSESSMENT/PLAN: Patient is an 83 year old female with history of hypertension, hyperlipidemia, diabetes mellitus, coronary artery disease and myocardial infarction s/p coronary stent (on Apirin, Brilinta), HFpEF, chronic kidney diseaseoresents with complaint of chest tightness ongoing for past three days. Chest pain -Resolved. -Likely secondary to symptomatic anemia -EKG upon admission showed normal sinus rhythm, 1st degree AV block. No ischemic ST-T wave changes. -Troponin- I negative x2 -Cardiac ECHO shows left ventricular size thickness, function, ejection fraction normal. -Duplex of bilateral lower extremities negative for DVT -Chest radiograph shows no acute pathology. -Cardiolgy consult (Dr. Murguia) appreciated -Telemetry monitoring. Symptomatic Anemia -Hb 8.5/ Hct 26.4 Follow repeat CBC tonight. -Patient does not appear to be actively bleeding. -Paitent is s/p transfusion 2 units PRBC -Given patient's history of myocardial infarct, and coronary artery disease, Hb transfusion goal should be above 8.0grams/ dL. -Protonix 40mg IV BID -Gastroenterology consult (Dr. Mata) appreciated. Endoscopy pending cardiology and pulmonology clearance Acute on chronic respiratory failure -Currently close to baseline, saturating well on 3L nasal canula. -Follow CT chest -Follow ABG -Pulmonology consult (Dr. Croft) appreciated. -IV Lasix 40mg IV push one time dose today. Acute kidney injury -BUN 36, Cr 2.8 -300cc urine output overnight -Holding Ramipril 10mg PO daily -Discontinue Norvasc -Follow renal, bladder US -Follow urine electrolytes Coronary artery disease, history of [place] s/p stent -Aspirin and Brilinta held in light of anemia. -Upon discharge will reinstate only Aspirin 81mg daily, and discontinue Brilinta, per cardiology recommendations. -Cardiology consult (Dr. Murguia) appreciated. Diabetes mellitus -Insulin sliding scale ACHS -Fignerstick blood glucose monitoring ACHS Hypertension -Imdur 30mg PO daily Hyperlipidemia -Atorvastatin 40mg PO HS Right toenail infection -Unasyn 3 grams IV Q8H. Last day of antibiotics tomorrow to complete 10 day course. -ID consult (Dr. Pat) appreciated. Prophylaxis -Heparin 5000u subq TID -Protonix Drip -Clear liquid diet Disposition -Continue care in Telemetry floor. Visit type - Emergency Visit Emergency Visit: Yes ED Registration Date: 12/05/18 Care time: The patient presented to the Emergency Department on the above date and was hospitalized for further evaluation of their emergent condition. - New Patient This patient is new to me today: No - Critical Care Critical Care patient: No - Discharge Referral Referred to [facility] Med P.C.: No
[2018-12-10 12:14] LABS: ARTERIAL BLOOD GAS PCO2 38.5 mmHg (35-45); ARTERIAL BLOOD GAS PO2 57.6 mmHg (80-105); ARTERIAL BLOOD GAS pH 7.37 (7.35-7.45)
[2018-12-10 12:15] LABS: ARTERIAL BLD GAS O2 SATURATION 88.2 % (95-98); ARTERIAL BLOOD GAS BASE EXCESS -2.7 meq/l (-2-2)
[2018-12-10 12:16] LABS: ALLENS TEST POSITIVE
--- NOTE | 2018-12-10 12:32 | CONS ---
DATE OF CONSULTATION: 12/10/2018 REFERRING PHYSICIAN: . HISTORY OF PRESENT ILLNESS: The patient is an 83-year-old white female known to me from previous hospitalization with past medical history of ASHD, status post PR, status post stent LAD, history of chronic kidney disease, hypertension, diastolic heart failure, qiu-nyfjqse-ezmalwxln diabetes mellitus, hypercholesterolemia, nonsmoker, also chronic hypoxemic respiratory failure, admitted to [facility] on December 05 with complaint of increasing shortness of breath, dyspnea on exertion, and orthopnea. Patient currently resides at an assisted living, at which time 3 days prior to admission she started to notice increasing shortness of breath, dyspnea on exertion, and orthopnea. She denied any complaints of cough, hemoptysis, did have some chest discomfort. She finally came to the emergency room on December 05. She was also complaining of right great toe infection and was started on antibiotics in the ED on December 01 prior to this admission. On current admission she is felt to be in CHF as well as great toe infection. She is also noted to be anemic. She was placed on antibiotic therapy by Infectious Disease and placed on Lasix. Hospitalization is significant for she has been having episodes of orthopnea, O2 desaturation at night, requiring her to sleep in a chair. She said she has sleep studies performed, and she was told they were okay. She states she is a heavy snorer and has had daytime sleepiness. She is a nonsmoker. There is no history of occupational exposures. She has been exposed to secondhand smoke in the past. Hospitalization also noted for she had elevated creatinine level which was evaluated by Dr. Hua, who felt the patient most likely had fpfay-[id number] kidney injury superimposed on chronic kidney disease secondary to Lasix. During this current hospitalization she was also placed on bronchodilators and IV steroids. PAST MEDICAL HISTORY: Again includes ASHD status post PR, status post PCI, hypertension, hyperlipidemia, diastolic heart failure, cellulitis of great toe, diabetes. REVIEW OF SYSTEMS: Positive orthopnea, positive dyspnea on exertion, positive chest pressure. No fever, no chills, no weight loss, no night sweats, no hemoptysis, no abdominal pain. CURRENT MEDICATIONS: Include Unasyn, Neurontin, DuoNeb, Colace, MiraLax, Lipitor, NovoLog, Feosol, Imdur, pravastatin, Protonix. PHYSICAL EXAMINATION: General: The patient is a well-developed, well-nourished female, awake, alert, currently in no acute distress. Vital Signs: She is currently afebrile. Respiratory rate is 20. O2 saturation is 93 on 5 L. Blood pressure is 110/54. HEENT: Normocephalic, atraumatic. Neck: Supple. Heart: Regular S1, S2. Chest: Bilateral crackles. Abdomen: Soft. Bowel sounds are positive. Extremities: Bilateral lower extremity edema, left greater than right. LABORATORY: WBCs 12.8, hemoglobin 8.5, hematocrit 26.4, with a platelet count of 281,000. Blood gas is pending. Chemistries: BUN 36, creatinine 2.8. BNP on admission was 443. Chest x-ray reveals prominent mediastinum, poor inspiratory effort, increased markings in the right upper lobe, possible infiltrate and/or atelectasis. IMPRESSION: 1. Ocvdn-yz-czicebl hypoxemic respiratory failure likely secondary to llfco-lb-iqinozc congestive heart failure. 2. Arteriosclerotic heart disease status post myocardial infarction status post stent. 3. Diabetes. 4. Zfylu-rt-lpxxvua kidney disease. 5. Likely obstructive sleep apnea. 6. Anemia. PLAN: Continue Lasix as per Cardiology, inhaled bronchodilators. CT scan of the chest to further evaluate pulmonary parenchyma. Daily weight, renal function, hemoglobin and hematocrit. A trial of BiPAP at night. Outpatient sleep study and PFTs as outpatient. Will check arterial blood gas on room air. CHIDI MCKINLEY M.D. JOSE/[id number]
--- NOTE | 2018-12-10 14:13 | PN ---
Progress Note, Physician History of Present Illness: Pt seen and examined at bedside. She complains of shortness of breath, but feels that it is better than yesterday. She complains of lower ext edema. - Current Medication List Current Medications: Active Medications Albuterol/Ipratropium (Duoneb -) 1 amp NEB RQID [facility] Last Admin: 12/10/18 11:45 Dose: 1 amp Atorvastatin Calcium (Lipitor -) 40 mg PO HS [facility] Last Admin: 12/09/18 22:17 Dose: 40 mg Docusate Sodium (Colace -) 100 mg PO DAILY [facility] Last Admin: 12/10/18 09:03 Dose: 100 mg Ferrous Sulfate (Feosol -) 325 mg PO BIDWM [facility] Last Admin: 12/10/18 09:03 Dose: 325 mg Gabapentin (Neurontin -) 300 mg PO TID [facility] Last Admin: 12/10/18 13:38 Dose: 300 mg Ampicillin Sodium/Sulbactam (Sodium 3 gm/ Sodium Chloride) 100 mls @ 200 mls/ hr IVPB Q8H-IV [facility] Last Admin: 12/10/18 09:22 Dose: 200 mls/hr Insulin Aspart (Novolog Vial Sliding Scale -) 1 vial SQ ACHS [facility]; Protocol Last Admin: 12/10/18 11:28 Dose: 2 unit Isosorbide Mononitrate (Imdur -) 30 mg PO DAILY [facility] Last Admin: 12/10/18 09:03 Dose: 30 mg Nitroglycerin (Nitrostat -) 0.4 mg SL Q5M PRN PRN Reason: FOR CHEST PAIN Pantoprazole Sodium (Protonix Iv) 40 mg IVPUSH BID [facility] Last Admin: 12/10/18 09:03 Dose: 40 mg Polyethylene Glycol (Miralax (For Daily Use) -) 17 gm PO DAILY [facility] Last Admin: 12/10/18 09:03 Dose: 17 gm - Objective Vital Signs: Vital Signs Temperature 98.4 F 12/10/18 10:00 Pulse Rate 63 12/10/18 10:00 Respiratory Rate 20 12/10/18 10:00 Blood Pressure 110/54 L 12/10/18 10:00 O2 Sat by Pulse Oximetry (%) 93 L 12/09/18 21:00 Constitutional: Yes: Calm Eyes: Yes: Conjunctiva Clear HENT: Yes: Atraumatic Neck: Yes: Supple Cardiovascular: Yes: S1, S2 Respiratory: Yes: On Nasal O2, Rhonchi Gastrointestinal: Yes: Soft, Abdomen, Obese Genitourinary: Yes: C[place] Present Musculoskeletal: Yes: WNL Edema: Yes Edema: LLE: 2+, RLE: 2+ Neurological: Yes: Oriented Psychiatric: Yes: Oriented Labs: CBC, BMP 12/10/18 05:30 12/10/18 05:30 INR, PTT INR 1.05 (0.83-1.09) 12/08/18 05:30 Problem List - Problems (1) Anemia Code(s): D64.9 - ANEMIA, UNSPECIFIED Qualifiers: Anemia type: unspecified type Qualified Code(s): D64.9 - Anemia, unspecified (2) Angina at rest Code(s): I20.8 - OTHER FORMS OF ANGINA PECTORIS (3) CAD (coronary artery disease) Code(s): I25.10 - ATHSCL HEART DISEASE OF [place] CORONARY ARTERY W/O ANG PCTRS Qualifiers: Coronary Disease-Associated Artery/Lesion type: unspecified vessel or lesion type [place] vs. transplanted heart: [place] heart Associated angina: with unstable angina Qualified Code(s): I25.110 - Atherosclerotic heart disease of [place] coronary artery with unstable angina pectoris (4) Renal failure Code(s): N19 - UNSPECIFIED KIDNEY FAILURE Qualifiers: Renal failure chronicity: chronic Chronic kidney disease stage: unspecified stage Qualified Code(s): N18.9 - Chronic kidney disease, unspecified (5) CKD (chronic kidney disease) Code(s): N18.9 - CHRONIC KIDNEY DISEASE, UNSPECIFIED Assessment/Plan Current Medications Generic Name Dose Route Start Last Admin Trade Name Freq PRN Reason Stop Dose Admin Albuterol/Ipratropium 1 amp 12/09/18 08:00 12/10/18 11:45 Duoneb - NEB 1 amp RQID JOSE ELIAS Administration Atorvastatin Calcium 40 mg 12/05/18 22:00 12/09/18 22:17 Lipitor - PO 40 mg HS JOSE ELIAS Administration Docusate Sodium 100 mg 12/07/18 10:00 12/10/18 09:03 Colace - PO 100 mg DAILY JOSE ELIAS Administration Ferrous Sulfate 325 mg 12/07/18 10:00 12/10/18 09:03 Feosol - PO 325 mg BIDWM JOSE ELIAS Administration Gabapentin 300 mg 12/05/18 22:00 12/10/18 13:38 Neurontin - PO 300 mg TID JOSE ELIAS Administration Ampicillin Sodium/Sulbactam 100 mls @ 200 mls/hr 12/08/18 18:00 12/10/18 09: 22 Sodium 3 gm/ Sodium Chloride IVPB 200 mls/hr Q8H-IV JOSE ELIAS Administration Insulin Aspart 1 vial 12/06/18 22:00 12/10/18 11:28 Novolog Vial Sliding Scale - SQ 2 unit ACHS JOSE ELIAS Administration Protocol Isosorbide Mononitrate 30 mg 12/06/18 10:00 12/10/18 09:03 Imdur - PO 30 mg DAILY JOSE ELIAS Administration Nitroglycerin 0.4 mg 12/05/18 20:09 Nitrostat - SL Q5M PRN FOR CHEST PAIN Pantoprazole Sodium 40 mg 12/09/18 10:00 12/10/18 09:03 Protonix Iv IVPUSH 40 mg BID JOSE ELIAS Administration Polyethylene Glycol 17 gm 12/06/18 10:00 12/10/18 09:03 Miralax (For Daily Use) - PO 17 gm DAILY JOSE ELIAS Administration Impression 1. CAROLYN 2. dyspnea 3. CAD 4. HTN 5. DM 6. CHF 7. hyperlipidemia 8. renal cyst 9. CKD 10. hx of urinary retention Plan - bp meds on hold - monitor bp - monitor renal function - cavanaugh for obstruction - pt may have atn from hypotension - agree with dose of lasix - cardio followup - do not give fluids Dr Hua
[2018-12-10 18:39] LABS: HEMATOCRIT 27.5 % (32.4-45.2); HEMOGLOBIN 8.7 GM/dL (10.7-15.3); MCH 25.9 pg (25.7-33.7); MCHC 31.5 g/dl (32.0-36.0); MEAN PLT VOLUME 9.1 fl (7.5-11.1); PLATELET COUNT 307 K/MM3 (134-434); RBC 3.35 M/mm3 (3.60-5.2); RDW 18.3 % (11.6-15.6); WHITE BLOOD COUNT 16.7 K/mm3 (4.0-10.0)
[2018-12-10] MEDS: ATORVASTATIN CA 40 MG TABLET (FP) PO SCH (22:01)
[2018-12-11] MEDS ORDERED: PT OWN MED DRAWER 7, Y5N ONE ×3 (00:37→17:29)
[2018-12-11] MEDS: AMPICILLIN NA/SULBACTAM NA 3 GM in SODIUM CHLORIDE 100 ML IVPB SCH ×3 (01:00→17:34)
[2018-12-11] MEDS ORDERED: ACETAMINOPHEN 325 MG TABLET (FP) PO ONE (02:44)
[2018-12-11] MEDS: GABAPENTIN 300 MG CAPSULE (FP) PO SCH ×3 (06:49→22:20)
[2018-12-11] MEDS: INSULIN SLIDING SCALE (NOVOLOG) 1 VIAL SQ SCH ×4 (06:51→22:20)
--- NOTE | 2018-12-11 07:00 | PN ---
Physical Exam: SUBJECTIVE: Patient seen and examined at bedside this morning. She endorses diffuse, cramping abdominal pain, and abdominal distension. She admits bowel movement without hematochezia, and melena. Patient complains of her cavanaugh catheter and is requesting that it be removed due to significant discomfort. Patient also complains of sharp left hip pain, shooting down the leg, with resulting difficult moving the leg. OBJECTIVE: Vital Signs Period Temp Pulse Resp BP Sys/Emerson Pulse Ox Last 24 Hr 97.4 F-98.4 F 62-66 18-20 96-115/46-55 94 GENERAL: The patient is awake, alert, and fully oriented, in no mild distress. HEAD: Normocephalic, atraumatic. EYES: PERRL, extraocular movements intact, sclera anicteric, conjunctiva clear. ENT: Oropharynx erythematous, with exudates noted. Moist mucous membranes. NECK: Trachea midline, full range of motion. Supple without lymphadenopathy. LUNGS: Good inspiratory effort with poor air entry bilaterally. Bibasilar crackles auscultated bilaterally. No accessory muscle use. HEART: Regular rate and rhythm, S1, S2 auscultated with holosystolic murmur at right upper sternal border. ABDOMEN: Soft, distended, diffusely tender to deep palpation x4 quadrants, no rebound tenderness, no guarding. Normoactive bowel sounds x4 quadrants. No hepatosplenomegaly palpated or percussed. EXTREMITIES: 2+ radial, 1+ dorsalis pedis pulses bilaterally. warm, well perfused. 2+ lower extremity edema, with thickened skin, and chronic venous stasis changes bilaterally. NEUROLOGICAL: Cranial nerves II through XII grossly intact. Normal speech. No gross focal deficits. PSYCH: Normal mood, normal affect upon my encounter. Laboratory Results - last 24 hr 12/10/18 12/10/18 12/10/18 05:30 05:30 11:27 WBC 12.8 H RBC 3.25 L Hgb 8.5 L Hct 26.4 L MCV 81.2 MCH 26.2 MCHC 32.3 RDW 18.0 H Plt Count 281 MPV 9.1 Anticoagulation Therapy Puncture Site ABG pH ABG pCO2 at Pt Temp ABG pO2 at Pt Temp ABG HCO3 ABG O2 Sat (Measured) ABG O2 Content ABG Base Excess Arun Test O2 Delivery Device Oxygen Flow Rate Vent Mode Vent Rate Mechanical Rate Pressure Support Vent Sodium 129 L Potassium 4.4 Chloride 94 L Carbon Dioxide 24 Anion Gap 11 BUN 36 H Creatinine 2.8 H Creat Clearance w eGFR 16.06 POC Glucometer 237 Random Glucose 221 H Calcium 7.7 L Total Bilirubin 0.3 AST 7 L ALT 14 Alkaline Phosphatase 134 H Total Protein 6.0 L Albumin 2.8 L 12/10/18 12/10/18 12/10/18 11:48 16:38 18:15 WBC 16.7 H RBC 3.35 L Hgb 8.7 L Hct 27.5 L MCV 82.0 MCH 25.9 MCHC 31.5 L RDW 18.3 H Plt Count 307 MPV 9.1 Anticoagulation Therapy No Result Required. Puncture Site Right radial ABG pH 7.37 ABG pCO2 at Pt Temp 38.5 ABG pO2 at Pt Temp 57.6 L ABG HCO3 21.7 L ABG O2 Sat (Measured) 88.2 L ABG O2 Content 10.2 L ABG Base Excess -2.7 L Arun Test Positive O2 Delivery Device No Result Required. Oxygen Flow Rate No Result Required. Vent Mode No Result Required. Vent Rate No Result Required. Mechanical Rate No Result Required. Pressure Support Vent No Result Required. Sodium Potassium Chloride Carbon Dioxide Anion Gap BUN Creatinine Creat Clearance w eGFR POC Glucometer 214 Random Glucose Calcium Total Bilirubin AST ALT Alkaline Phosphatase Total Protein Albumin 12/10/18 12/11/18 22:00 06:48 WBC RBC Hgb Hct MCV MCH MCHC RDW Plt Count MPV Anticoagulation Therapy Puncture Site ABG pH ABG pCO2 at Pt Temp ABG pO2 at Pt Temp ABG HCO3 ABG O2 Sat (Measured) ABG O2 Content ABG Base Excess Arun Test O2 Delivery Device Oxygen Flow Rate Vent Mode Vent Rate Mechanical Rate Pressure Support Vent Sodium Potassium Chloride Carbon Dioxide Anion Gap BUN Creatinine Creat Clearance w eGFR POC Glucometer 202 116 Random Glucose Calcium Total Bilirubin AST ALT Alkaline Phosphatase Total Protein Albumin Active Medications Generic Name Dose Route Start Last Admin Trade Name Freq PRN Reason Stop Dose Admin Albuterol/Ipratropium 1 amp 12/09/18 08:00 12/10/18 20:15 Duoneb - NEB 1 amp RQID JOSE ELIAS Administration Atorvastatin Calcium 40 mg 12/05/18 22:00 12/10/18 22:01 Lipitor - PO 40 mg HS JOSE ELIAS Administration Docusate Sodium 100 mg 12/07/18 10:00 12/10/18 09:03 Colace - PO 100 mg DAILY JOSE ELIAS Administration Ferrous Sulfate 325 mg 12/07/18 10:00 12/10/18 17:21 Feosol - PO 325 mg BIDWM JOSE ELIAS Administration Gabapentin 300 mg 12/05/18 22:00 12/11/18 06:49 Neurontin - PO 300 mg TID JOSE ELIAS Administration Ampicillin Sodium/Sulbactam 100 mls @ 200 mls/hr 12/08/18 18:00 12/11/18 01: 00 Sodium 3 gm/ Sodium Chloride IVPB 200 mls/hr Q8H-IV JOSE ELIAS Administration Insulin Aspart 1 vial 12/06/18 22:00 12/11/18 06:51 Novolog Vial Sliding Scale - SQ Not Given ACHS [facility] Protocol Nitroglycerin 0.4 mg 12/05/18 20:09 Nitrostat - SL Q5M PRN FOR CHEST PAIN Pantoprazole Sodium 40 mg 12/09/18 10:00 12/10/18 22:01 Protonix Iv IVPUSH 40 mg BID JOSE ELIAS Administration Polyethylene Glycol 17 gm 12/06/18 10:00 12/10/18 09:03 Miralax (For Daily Use) - PO 17 gm DAILY JOSE ELIAS Administration ASSESSMENT/PLAN: Patient is an 83 year old female with history of hypertension, hyperlipidemia, diabetes mellitus, coronary artery disease and myocardial infarction s/p coronary stent (on Apirin, Brilinta), HFpEF, chronic kidney disease presents with complaint of chest tightness ongoing for past three days. Chest pain -Resolved. -Likely secondary to symptomatic anemia -EKG upon admission showed normal sinus rhythm, 1st degree AV block. No ischemic ST-T wave changes. -Troponin- I negative x2 -Cardiac ECHO shows left ventricular size thickness, function, ejection fraction normal. -Duplex of bilateral lower extremities negative for DVT -Chest radiograph shows no acute pathology. -Cardiolgy consult (Dr. Murguia) appreciated -Telemetry monitoring. Symptomatic Anemia -Hb 9.1/ Hct 27.8 -Patient does not appear to be actively bleeding. -Paitent is s/p transfusion 2 units PRBC -Given patient's history of myocardial infarct, and coronary artery disease, Hb transfusion goal should be above 8.0grams/ dL. -Protonix 40mg IV BID -Gastroenterology consult (Dr. Mata) appreciated. Endoscopy pending cardiology and pulmonology clearance Acute on chronic respiratory failure -Currently close to baseline, saturating well on 2L nasal canula. -CT chest shows apical scarring, and bilateral atelectasis at the bases. -ABG shows no CO2 retention -Lasix 40mg IV one time dose today -Pulmonology consult (Dr. Croft) appreciated. Acute kidney injury -BUN 39, Cr 2.7 -300cc urine output overnight -Holding Ramipril 10mg PO daily -Discontinue Norvasc -Renal, bladder US shows no acute pathology. -Follow urine electrolytes -Nephrology consult (Dr. Hua) appreciated. Coronary artery disease, history of DE s/p stent -Aspirin and Brilinta held in light of anemia. -Upon discharge will reinstate only Aspirin 81mg daily, and discontinue Brilinta, per cardiology recommendations. -Cardiology consult (Dr. Murguia) appreciated. Diabetes mellitus -Insulin sliding scale ACHS -Fingerstick blood glucose monitoring ACHS Hypertension -Imdur 30mg PO daily Hyperlipidemia -Atorvastatin 40mg PO HS Right toenail infection -Unasyn 3 grams IV Q8H. Last day of antibiotics today to complete 10 day course. -ID consult (Dr. Pat) appreciated. Pharyngitis -Oropharynx erythematous, with white exudates noted -Group A streptococcus throat swab negative -Follow throat culture -Magic mouthwash 5mL MM Q6 hours Bowel regimen -Miralax 17 grams PO daily -Colace 100mg PO BID -Senna 1 tablet PO HS Prophylaxis -Heparin 5000u subq TID -Protonix 40mg IV BID -Clear liquid diet Disposition -Continue care in Telemetry floor. Visit type - Emergency Visit Emergency Visit: Yes ED Registration Date: 12/05/18 Care time: The patient presented to the Emergency Department on the above date and was hospitalized for further evaluation of their emergent condition. - New Patient This patient is new to me today: No - Critical Care Critical Care patient: No - Discharge Referral Referred to [facility] Med [facility] No
--- NOTE | 2018-12-11 07:40 | PN ---
Progress Note, Physician History of Present Illness: GI FOLLOW UP NOTE Patient complain of abdominal cramping which began yesterday. States having BM and denies nausea and vomiting. Labs from 12/10/18 show stable Hg at 8.7, no reports of melena or blood in stool. Leukocytosis noted with WBC 16,700. On examination patient noted to have abdominal distention. - Current Medication List Current Medications: Active Medications Albuterol/Ipratropium (Duoneb -) 1 amp NEB RQID [facility] Last Admin: 12/10/18 20:15 Dose: 1 amp Atorvastatin Calcium (Lipitor -) 40 mg PO HS [facility] Last Admin: 12/10/18 22:01 Dose: 40 mg Docusate Sodium (Colace -) 100 mg PO DAILY [facility] Last Admin: 12/10/18 09:03 Dose: 100 mg Ferrous Sulfate (Feosol -) 325 mg PO BIDWM [facility] Last Admin: 12/10/18 17:21 Dose: 325 mg Gabapentin (Neurontin -) 300 mg PO TID [facility] Last Admin: 12/11/18 06:49 Dose: 300 mg Ampicillin Sodium/Sulbactam (Sodium 3 gm/ Sodium Chloride) 100 mls @ 200 mls/ hr IVPB Q8H-IV [facility] Last Admin: 12/11/18 01:00 Dose: 200 mls/hr Insulin Aspart (Novolog Vial Sliding Scale -) 1 vial SQ ACHS [facility]; Protocol Last Admin: 12/11/18 06:51 Dose: Not Given Nitroglycerin (Nitrostat -) 0.4 mg SL Q5M PRN PRN Reason: FOR CHEST PAIN Pantoprazole Sodium (Protonix Iv) 40 mg IVPUSH BID [facility] Last Admin: 12/10/18 22:01 Dose: 40 mg Polyethylene Glycol (Miralax (For Daily Use) -) 17 gm PO DAILY [facility] Last Admin: 12/10/18 09:03 Dose: 17 gm - Objective Vital Signs: Vital Signs Temperature 97.7 F 12/11/18 02:00 Pulse Rate 66 12/11/18 02:00 Respiratory Rate 18 12/11/18 02:00 Blood Pressure 98/47 L 12/11/18 02:00 O2 Sat by Pulse Oximetry (%) 94 L 12/10/18 09:00 Constitutional: Yes: No Distress, Calm Eyes: Yes: Conjunctiva Clear HENT: Yes: Atraumatic Cardiovascular: Yes: Regular Rate and Rhythm Respiratory: Yes: On Nasal O2, Wheezes Gastrointestinal: Yes: Normal Bowel Sounds, Soft, Distention, Tenderness ( diffuse) Genitourinary: Yes: Rodriguez Present Musculoskeletal: Yes: Muscle Weakness Extremities: Yes: Erythema (B/L LE) Neurological: Yes: Alert, Oriented Psychiatric: Yes: Alert, Oriented Labs: CBC, BMP 12/10/18 18:15 12/10/18 05:30 INR, PTT INR 1.05 (0.83-1.09) 12/08/18 05:30 Problem List - Problems (1) Anemia Assessment/Plan: R>patient cleared by cardiology for EGD, pending pulmonary clearance >Monitor Hg daily and transfuse for Hg <8.0 >continue Protonix drip >WBC 16,700, repeat CBC ordered STAT, hold EGD until WBC wnl--if repeat CBC normal will plan for EGD Code(s): D64.9 - ANEMIA, UNSPECIFIED Qualifiers: Anemia type: unspecified type Qualified Code(s): D64.9 - Anemia, unspecified (2) Abdominal distension Assessment/Plan: R> Abdomen and Pelvic CT scan without contrast STAT >CBC ordered STAT to monitor WBC Code(s): R14.0 - ABDOMINAL DISTENSION (GASEOUS)
[2018-12-11] MEDS: ALBUTEROL SO4 2.5/IPRATROPIUM 0.5 INH SOL 3 ML VIAL.NEB. NEB SCH ×4 (08:27→21:12)
[2018-12-11 10:07] LABS: HEMATOCRIT 27.8 % (32.4-45.2); HEMOGLOBIN 9.1 GM/dL (10.7-15.3); MCH 26.3 pg (25.7-33.7); MCHC 32.7 g/dl (32.0-36.0); MEAN CELL VOLUME 80.4 fl (80-96); MEAN PLT VOLUME 8.6 fl (7.5-11.1); PLATELET COUNT 276 K/MM3 (134-434); RBC 3.46 M/mm3 (3.60-5.2); RDW 18.8 % (11.6-15.6); WHITE BLOOD COUNT 10.2 K/mm3 (4.0-10.0)
[2018-12-11] MEDS: DOCUSATE SODIUM 100 MG CAPSULE (FP) PO SCH ×3 (10:19→22:20)
[2018-12-11] MEDS: FERROUS SO4 325 MG TABLET (FP) PO SCH ×2 (10:19→17:34)
[2018-12-11] MEDS: PANTOPRAZOLE SODIUM 40 MG VIAL IVPUSH SCH ×2 (10:21→22:20)
[2018-12-11 10:25] LABS: ANION GAP 11 MMOL/L (8-16); BLOOD UREA NITROGEN 39 mg/dL (7-18); CALCIUM 7.8 mg/dL (8.5-10.1); CHLORIDE 93 mmol/L (98-107); CO2 24 mmol/L (21-32); CREATININE 2.7 mg/dL (0.55-1.3); GLUCOSE,RANDOM 115 mg/dL (74-106); POTASSIUM 3.8 mmol/L (3.5-5.1); SODIUM 128 mmol/L (136-145)
--- NOTE | 2018-12-11 10:55 | PN ---
Teaching Attending Note Name of Resident: Greg Gomez ATTENDING PHYSICIAN STATEMENT I saw and evaluated the patient. I reviewed the resident's note and discussed the case with the resident. I agree with the resident's findings and plan as documented. SUBJECTIVE:c/o sore throat and abdominal discomfort. had 1 small BM yesterday. no melena or BRBRPR. denies CP, SOB, fever,chills, cough, N/V/c/D OBJECTIVE: Last Vital Signs Temp Pulse Resp BP Pulse Ox 97.7 F 60 18 94/58 L 94 L 12/11/18 06:00 12/11/18 06:00 12/11/18 06:00 12/11/18 06:00 12/10/18 09:00 Intake & Output 12/08/18 12/09/18 12/10/18 12/11/18 23:59 23:59 23:59 23:59 Intake Total 6971 904 6450 Output Total 50 1550 700 300 Balance 1530 -1230 1050 -300 Weight 192 lb 191 lb 205 lb General NAD HEENT erythematous pharynx with some exudate, no facial or maxillary tenderness CV S1 S2 RRR no murmur/rub/gallop Lungs decreased breath sounds B/L bases. no wheezing extremiteis 3+ PItting edema B/L ASSESSMENT AND PLAN: 83 year old female with HTN, HLD, DM 2, CAD s/p SD s/p PCI/Stent (on Aspirin, Brilinta), CRF sec to Chronic Diastolic CHF, CKD 3, s/p chlecystecomy/ hysterectomy/tonsillectomy from [facility], currently on Augmentin for infected wound on R great toe, now presents with intermittent substernal chest pain, initially on exertion, now at rest. Also complained of worsening LE edema. 1. Angina secondary to Acute Blood Loss Anemia secondary to GI bleed, likely Upper. no repeat episodes of CP or bleeding. received 2 units PRBC this hospital stay. hgb has been stable and no episodes of bleeding noted. spoke with GI and agree there is a lot of risk going forward with EGD that may not necessarily outweigh the benefit of the procedure. high likelihood of gastric ulcer (DAPT with steroid use) however also have to be concerned for mass that would require surgery. will need to speak with patient about benefit/risk ratio. appreciate cardio recommendations of holding brilinta going forward and can resume only asa going forward. would not be unreasonable to hold off on procedure at this time pending on patient and GI discussion.currenly NPO for possible EGD. cardio and GI on board 2. Acute on chronic Respiratory failure- unclear from volume overload vs underlying pulmonary disease.currently 90% on RA. as NC fell off her face. CT scan reviewed doubt infiltrates as does not have fevers, cough and leukocytosis more likely from steroids given. on unasyn would not escalate abx at this timeas clinically looks improved. would hold further diuresis. cont nebs prn. pulmonary consulted 3. Abdominal pain- small BM yesterday. may be constipated. CT abdomen/pelvis ordered by GI service. will start stool softeners 4. SOre throat- concern for strep. check throat swab. 5. CAROLYN- due to medications vs hypoperfusion with intermittent hypotension. renal u/s and urine studies negative for acute disease. monitor Cr. nephro consulted. 6. HTN- now hypotensive. cont to hold antihypertensives. will re-start as needed 7. R toe infection- augmentin switch to unasyn. today was to be last day. 8. DVT ppx- SCD.
--- NOTE | 2018-12-11 11:50 | PN ---
Progress Note (short form) - Note Progress Note: s: no chest pain, palps, dizziness. sob improved Current Medications Albuterol/Ipratropium (Duoneb -) 1 amp NEB RQID [facility] Last Admin: 12/11/18 08:27 Dose: 1 amp Atorvastatin Calcium (Lipitor -) 40 mg PO HS [facility] Last Admin: 12/10/18 22:01 Dose: 40 mg Docusate Sodium (Colace -) 100 mg PO DAILY [facility] Last Admin: 12/11/18 10:19 Dose: 100 mg Ferrous Sulfate (Feosol -) 325 mg PO BIDWM [facility] Last Admin: 12/11/18 10:19 Dose: 325 mg Gabapentin (Neurontin -) 300 mg PO TID [facility] Last Admin: 12/11/18 06:49 Dose: 300 mg Ampicillin Sodium/Sulbactam (Sodium 3 gm/ Sodium Chloride) 100 mls @ 200 mls/ hr IVPB Q8H-IV [facility] Last Admin: 12/11/18 10:21 Dose: 200 mls/hr Insulin Aspart (Novolog Vial Sliding Scale -) 1 vial SQ ACHS [facility]; Protocol Last Admin: 12/11/18 11:24 Dose: Not Given Nitroglycerin (Nitrostat -) 0.4 mg SL Q5M PRN PRN Reason: FOR CHEST PAIN Pantoprazole Sodium (Protonix Iv) 40 mg IVPUSH BID [facility] Last Admin: 12/11/18 10:21 Dose: 40 mg Polyethylene Glycol (Miralax (For Daily Use) -) 17 gm PO DAILY [facility] Last Admin: 12/10/18 09:03 Dose: 17 gm Vital Signs Period Temp Pulse Resp BP Sys/Emerson Pulse Ox Last 24 Hr 97.4 F-97.9 F 60-66 18-20 94-115/46-58 94 Constitutional: Yes: No Distress, Calm Eyes: No: Sclera Icterus HENT: No: Nasal Congestion Cardiovascular: Yes: Regular Rate and Rhythm, S1, S2, Other (PMI non diplaced). No: JVD (in chair), Gallop, Murmur Respiratory: Yes: CTA Bilaterally. No: Accessory Muscle Use Gastrointestinal: Yes: Normal Bowel Sounds, Soft. No: Tenderness Musculoskeletal: Yes: Other (No kyphosis) Extremities: No: Cold, Cyanosis Edema: Yes (1+ pretib) Integumentary: No: Jaundice Neurological: Yes: Alert, Oriented (x3) Psychiatric: No: Agitated Assessment/Plan 06/2017 mibi: Stress test + for moderate intensity ischemia of posterior and lateral wall. ? TID [facility] 10/12: DAYANA to mLAD, PTCA of D1. residual 50-60% mRCA. OM1 chronically occluded fills via LAD collaterals Echo 12/13: nl LV/EF. nl RV. trace MR/TR, no RVSP. Echo 09/2017: tds; nl lv/rv, no sig valve path Echo 04/12: TDS. normal overall LVSF, can't r/o RWMAs. mild-mod RVE with mild hypo. mild-mod TR. RVSP 30-40 Echo 08/11: nl LV, nl RV, mild LAE, valve fxn WNL CXR: clear lungs/pleura ECG: sr, no ischemic changes CT chest: scarring at apices, scattered infiltrates patchy tele: sinus a/p: chest pain: -no signs acs or chf -trop neg x2, ECG non-ischemic -06/2017 mibi was reviewed by dr miller and felt to show only minimal inferolateral ischemia in area of patient's known residual disease, no significant TID is seen. -suspect symptoms were due to severe anemia, monitor symptoms after prbcs sob, PND/orthopnea, hypoxia: -c/o sob when gets oob to bathroom, then orthopnea when returns to bed which resolves on its own -? JVD--tds exam -rales at bases. repeat CXR and repeat BNP -on lasix 40 po bid at home. received 40 IV x 2 doses yesterday. -12/07: lasix 40 IV x 1 dose now, then continue 40 iv bid for now--further dosing tbd -12/08: suspected volume up but creat bumped 1.1->1.9, lasix held -12/09: bun/creat 27/2.4. hypotensive to 80s overnight--she is likely dry. suspect non-cardiac cause of her sob. this creatinine behavior to moderate dose lasix is not consistent with elevated circulating fluid volume/hi filling pressures, echo images limited review today: RV enlarged but function preserved , no cause of cardiac output obstruction present.. suspect her nocturnal sob/ hypoxia is related to pulm etiology (pt on home O2 for few yrs, doesn't see pum) --rec pulm evaluation. -12/10-17: remains hypotensive, euvolemic on exam. holding diuretics. pulm consulted -would not pursue EGD until oxygenation is optimized CAROLYN: -holding diuretics -cont gentle IVF -BUN:creat not typical prerenal pattern, Cr rising - renal consulted anemia: -transfused -H/H currently stable -GI eval pending -asa/brilinta on hold CAD, prior h/o ACS (UA presentation) with PCI of LAD: -plan as above -residual moderate angiographic stenosis of mRCA, and LINE RUNNER of OM fed by LAD collaterals -pt is >3 yrs from prior PCI, hence dr miller plans to stop brilinta (bleed risk > ischemia risk) -resume only asa 81 qd once ok with GI -cont statin, imdur, ccb chronic diast CHF, venous ins'y/edema: -on lasix 40 bid at home. -suspect euvolemic at present--as above HTN: -stable on current meds -same plan
--- NOTE | 2018-12-11 11:57 | PN ---
Progress Note, Physician History of Present Illness: pulmonary alert,oob-chair,comfortable,-resp distress. pt refusing bipap - Current Medication List Current Medications: Active Medications Albuterol/Ipratropium (Duoneb -) 1 amp NEB RQID [facility] Last Admin: 12/11/18 08:27 Dose: 1 amp Atorvastatin Calcium (Lipitor -) 40 mg PO HS [facility] Last Admin: 12/10/18 22:01 Dose: 40 mg Docusate Sodium (Colace -) 100 mg PO DAILY [facility] Last Admin: 12/11/18 10:19 Dose: 100 mg Ferrous Sulfate (Feosol -) 325 mg PO BIDWM [facility] Last Admin: 12/11/18 10:19 Dose: 325 mg Gabapentin (Neurontin -) 300 mg PO TID [facility] Last Admin: 12/11/18 06:49 Dose: 300 mg Ampicillin Sodium/Sulbactam (Sodium 3 gm/ Sodium Chloride) 100 mls @ 200 mls/ hr IVPB Q8H-IV [facility] Last Admin: 12/11/18 10:21 Dose: 200 mls/hr Insulin Aspart (Novolog Vial Sliding Scale -) 1 vial SQ ACHS [facility]; Protocol Last Admin: 12/11/18 11:24 Dose: Not Given Nitroglycerin (Nitrostat -) 0.4 mg SL Q5M PRN PRN Reason: FOR CHEST PAIN Pantoprazole Sodium (Protonix Iv) 40 mg IVPUSH BID [facility] Last Admin: 12/11/18 10:21 Dose: 40 mg Polyethylene Glycol (Miralax (For Daily Use) -) 17 gm PO DAILY [facility] Last Admin: 12/10/18 09:03 Dose: 17 gm - Objective Vital Signs: Vital Signs Temperature 97.7 F 12/11/18 06:00 Pulse Rate 60 12/11/18 06:00 Respiratory Rate 18 12/11/18 09:00 Blood Pressure 94/58 L 12/11/18 06:00 O2 Sat by Pulse Oximetry (%) 94 L 12/11/18 09:00 Constitutional: Yes: Well Nourished, Calm Eyes: Yes: WNL HENT: Yes: WNL Neck: Yes: WNL Cardiovascular: Yes: Regular Rate and Rhythm, S1, S2 Respiratory: Yes: Rales (few bibasilar crackles) Gastrointestinal: Yes: Normal Bowel Sounds, Soft Extremities: Yes: WNL Edema: Yes Labs: CBC, BMP 12/11/18 09:20 12/11/18 09:20 INR, PTT INR 1.05 (0.83-1.09) 12/08/18 05:30 Laboratory Tests 12/10/18 11:48 ABG pH 7.37 ABG pCO2 at Pt Temp 38.5 ABG pO2 at Pt Temp 57.6 L ABG HCO3 21.7 L ABG O2 Sat (Measured) 88.2 L - ....Imaging Cat Scan: Report Reviewed, Image Reviewed Problem List - Problems (1) Anemia Code(s): D64.9 - ANEMIA, UNSPECIFIED Qualifiers: Anemia type: unspecified type Qualified Code(s): D64.9 - Anemia, unspecified (2) CAD (coronary artery disease) Code(s): I25.10 - ATHSCL HEART DISEASE OF [place] CORONARY ARTERY W/O ANG PCTRS Qualifiers: Coronary Disease-Associated Artery/Lesion type: unspecified vessel or lesion type [place] vs. transplanted heart: [place] heart Associated angina: with unstable angina Qualified Code(s): I25.110 - Atherosclerotic heart disease of [place] coronary artery with unstable angina pectoris (3) Chest pain Code(s): R07.9 - CHEST PAIN, UNSPECIFIED Qualifiers: Chest pain type: chest pain due to myocardial ischemia Ischemic chest pain type: unstable angina pectoris Qualified Code(s): I20.0 - Unstable angina (4) Renal failure Code(s): N19 - UNSPECIFIED KIDNEY FAILURE Qualifiers: Renal failure chronicity: chronic Chronic kidney disease stage: unspecified stage Qualified Code(s): N18.9 - Chronic kidney disease, unspecified (5) CHF (congestive heart failure) Code(s): I50.9 - HEART FAILURE, UNSPECIFIED Qualifiers: Qualified Code(s): I50.32 - Chronic diastolic (congestive) heart failure (6) Diabetes Code(s): E11.9 - TYPE 2 DIABETES MELLITUS WITHOUT COMPLICATIONS Qualifiers: Diabetes mellitus type: type 2 Diabetes mellitus diabetes educator insulin use: unspecified half-way insulin use status Diabetes mellitus complication status : with hypoglycemia Diabetes mellitus complication detail: without coma Qualified Code(s): E11.649 - Type 2 diabetes mellitus with hypoglycemia without coma (7) Diastolic heart failure Code(s): I50.30 - UNSPECIFIED DIASTOLIC (CONGESTIVE) HEART FAILURE Qualifiers: Heart failure chronicity: chronic Qualified Code(s): I50.32 - Chronic diastolic (congestive) heart failure (8) Dyspnea Code(s): R06.00 - DYSPNEA, UNSPECIFIED (9) Edema Code(s): R60.9 - EDEMA, UNSPECIFIED (10) Acute renal failure superimposed on chronic kidney disease Code(s): N17.9 - ACUTE KIDNEY FAILURE, UNSPECIFIED; N18.9 - CHRONIC KIDNEY DISEASE, UNSPECIFIED (11) Acute on chronic respiratory failure with hypoxemia Code(s): J96.21 - ACUTE AND CHRONIC RESPIRATORY FAILURE WITH HYPOXIA Assessment/Plan IMP ACUTE ON CHRONIC HYPOXEMIC RESPIRATORY FAILURE ACUTE ON CHRONIC CHF improving DM ASHD S/P AR,S/P STENT ACUTE ON CHRONIC KIDNEY DISEASE ? FRANK ANEMIA ?LLL MASS/CONSOLIDATION/? ATELECTASIS PLAN LASIX PER CARDIOLOGY INHALED BRONCHODILATORS DAILY WT MONITOR LYTES,RENAL FUNCTION,H+H BIPAP AT NIGHT OUTPATIENT SLEEP STUDY OUTPATIENT PFTS NO PULMONARY CONTRAINDICATIONS FOR EGD ABX F/U CHEST CT 4 WKS TO DOCUMENT RESOLUTION DR MCKINLEY Problem List - Problems (1) Anemia Code(s): D64.9 - ANEMIA, UNSPECIFIED Qualifiers: Anemia type: unspecified type Qualified Code(s): D64.9 - Anemia, unspecified (2) CAD (coronary artery disease) Code(s): I25.10 - ATHSCL HEART DISEASE OF [place] CORONARY ARTERY W/O ANG PCTRS Qualifiers: Coronary Disease-Associated Artery/Lesion type: unspecified vessel or lesion type [place] vs. transplanted heart: [place] heart Associated angina: with unstable angina Qualified Code(s): I25.110 - Atherosclerotic heart disease of [place] coronary artery with unstable angina pectoris (3) Chest pain Code(s): R07.9 - CHEST PAIN, UNSPECIFIED Qualifiers: Chest pain type: chest pain due to myocardial ischemia Ischemic chest pain type: unstable angina pectoris Qualified Code(s): I20.0 - Unstable angina (4) Renal failure Code(s): N19 - UNSPECIFIED KIDNEY FAILURE Qualifiers: Renal failure chronicity: chronic Chronic kidney disease stage: unspecified stage Qualified Code(s): N18.9 - Chronic kidney disease, unspecified (5) CHF (congestive heart failure) Code(s): I50.9 - HEART FAILURE, UNSPECIFIED Qualifiers: Qualified Code(s): I50.32 - Chronic diastolic (congestive) heart failure (6) Diabetes Code(s): E11.9 - TYPE 2 DIABETES MELLITUS WITHOUT COMPLICATIONS Qualifiers: Diabetes mellitus type: type 2 Diabetes mellitus half-way insulin use: unspecified diabetes educator insulin use status Diabetes mellitus complication status : with hypoglycemia Diabetes mellitus complication detail: without coma Qualified Code(s): E11.649 - Type 2 diabetes mellitus with hypoglycemia without coma (7) Diastolic heart failure Code(s): I50.30 - UNSPECIFIED DIASTOLIC (CONGESTIVE) HEART FAILURE Qualifiers: Heart failure chronicity: chronic Qualified Code(s): I50.32 - Chronic diastolic (congestive) heart failure (8) Dyspnea Code(s): R06.00 - DYSPNEA, UNSPECIFIED (9) Edema Code(s): R60.9 - EDEMA, UNSPECIFIED (10) Acute renal failure superimposed on chronic kidney disease Code(s): N17.9 - ACUTE KIDNEY FAILURE, UNSPECIFIED; N18.9 - CHRONIC KIDNEY DISEASE, UNSPECIFIED (11) Acute on chronic respiratory failure with hypoxemia Code(s): J96.21 - ACUTE AND CHRONIC RESPIRATORY FAILURE WITH HYPOXIA
--- NOTE | 2018-12-11 12:54 | PN ---
Progress Note, Physician History of Present Illness: Pt seen and examined at bedside. She is awake and alert. She complains of edema. - Current Medication List Current Medications: Active Medications Albuterol/Ipratropium (Duoneb -) 1 amp NEB RQID [facility] Last Admin: 12/11/18 12:10 Dose: 1 amp Atorvastatin Calcium (Lipitor -) 40 mg PO HS [facility] Last Admin: 12/10/18 22:01 Dose: 40 mg Docusate Sodium (Colace -) 100 mg PO DAILY [facility] Last Admin: 12/11/18 10:19 Dose: 100 mg Ferrous Sulfate (Feosol -) 325 mg PO BIDWM [facility] Last Admin: 12/11/18 10:19 Dose: 325 mg Gabapentin (Neurontin -) 300 mg PO TID [facility] Last Admin: 12/11/18 06:49 Dose: 300 mg Ampicillin Sodium/Sulbactam (Sodium 3 gm/ Sodium Chloride) 100 mls @ 200 mls/ hr IVPB Q8H-IV [facility] Last Admin: 12/11/18 10:21 Dose: 200 mls/hr Insulin Aspart (Novolog Vial Sliding Scale -) 1 vial SQ ACHS [facility]; Protocol Last Admin: 12/11/18 11:24 Dose: Not Given Nitroglycerin (Nitrostat -) 0.4 mg SL Q5M PRN PRN Reason: FOR CHEST PAIN Pantoprazole Sodium (Protonix Iv) 40 mg IVPUSH BID [facility] Last Admin: 12/11/18 10:21 Dose: 40 mg Polyethylene Glycol (Miralax (For Daily Use) -) 17 gm PO DAILY [facility] Last Admin: 12/10/18 09:03 Dose: 17 gm - Objective Vital Signs: Vital Signs Temperature 97 F L 12/11/18 10:00 Pulse Rate 60 12/11/18 10:00 Respiratory Rate 20 12/11/18 10:00 Blood Pressure 115/61 12/11/18 10:00 O2 Sat by Pulse Oximetry (%) 94 L 12/11/18 09:00 Constitutional: Yes: Calm Eyes: Yes: Conjunctiva Clear Cardiovascular: Yes: S1, S2 Respiratory: Yes: On Nasal O2 Gastrointestinal: Yes: Soft, Abdomen, Obese Genitourinary: Yes: [place] Present Edema: Yes Edema: LLE: 3+, RLE: 3+ Integumentary: Yes: Venous Stasis Changes Neurological: Yes: Oriented Psychiatric: Yes: Oriented Labs: CBC, BMP 12/11/18 09:20 12/11/18 09:20 INR, PTT INR 1.05 (0.83-1.09) 12/08/18 05:30 Problem List - Problems (1) Anemia Code(s): D64.9 - ANEMIA, UNSPECIFIED Qualifiers: Anemia type: unspecified type Qualified Code(s): D64.9 - Anemia, unspecified (2) Angina at rest Code(s): I20.8 - OTHER FORMS OF ANGINA [place]ECT[place] (3) CAD (coronary artery disease) Code(s): I25.10 - ATHSCL HEART DISEASE OF [place] CORONARY ARTERY W/O ANG PCTRS Qualifiers: Coronary Disease-Associated Artery/Lesion type: unspecified vessel or lesion type [place] vs. transplanted heart: [place] heart Associated angina: with unstable angina Qualified Code(s): I25.110 - Atherosclerotic heart disease of [place] coronary artery with unstable angina pectoris (4) Renal failure Code(s): N19 - UNSPECIFIED KIDNEY FAILURE Qualifiers: Renal failure chronicity: chronic Chronic kidney disease stage: unspecified stage Qualified Code(s): N18.9 - Chronic kidney disease, unspecified (5) CKD (chronic kidney disease) Code(s): N18.9 - CHRONIC KIDNEY DISEASE, UNSPECIFIED Assessment/Plan Current Medications Generic Name Dose Route Start Last Admin Trade Name Freq PRN Reason Stop Dose Admin Albuterol/Ipratropium 1 amp 12/09/18 08:00 12/11/18 12:10 Duoneb - NEB 1 amp RQID [facility] Administration Atorvastatin Calcium 40 mg 12/05/18 22:00 12/10/18 22:01 Lipitor - PO 40 mg HS JOSE ELIAS Administration Docusate Sodium 100 mg 12/07/18 10:00 12/11/18 10:19 Colace - PO 100 mg DAILY JOSE ELIAS Administration Ferrous Sulfate 325 mg 12/07/18 10:00 12/11/18 10:19 Feosol - PO 325 mg BIDWM JOSE ELIAS Administration Gabapentin 300 mg 12/05/18 22:00 12/11/18 06:49 Neurontin - PO 300 mg TID JOSE ELIAS Administration Ampicillin Sodium/Sulbactam 100 mls @ 200 mls/hr 12/08/18 18:00 12/11/18 10: 21 Sodium 3 gm/ Sodium Chloride IVPB 200 mls/hr Q8H-IV [facility] ELI[facility] Administration Insulin Aspart 1 vial 12/06/18 22:00 12/11/18 11:24 Novolog Vial Sliding Scale - SQ Not Given ACHS [facility] Protocol Nitroglycerin 0.4 mg 12/05/18 20:09 Nitrostat - SL Q5M PRN FOR CHEST PAIN Pantoprazole Sodium 40 mg 12/09/18 10:00 12/11/18 10:21 Protonix Iv IVPUSH 40 mg BID [facility] Administration Polyethylene Glycol 17 gm 12/06/18 10:00 12/10/18 09:03 Miralax (For Daily Use) - PO 17 gm DAILY [facility]SE ELIAS Administration Impression 1. CAROLYN 2. dyspnea 3. CAD 4. HTN 5. DM 6. CHF 7. hyperlipidemia 8. renal cyst 9. CKD 10. hx of urinary retention Plan - monitor bp - renal functions starting to improve - cont with lasix - she remains fluid overloaded - keep net negative - pt may have atn from hypotension - agree with dose of lasix - cardio followup Dr Hua
[2018-12-11] MEDS ORDERED: FUROSEMIDE 40 MG/4 ML INJECTABLE VIAL IVPUSH ONE (13:15)
[2018-12-11] MEDS: POLYETHYLENE GLYCOL 3350 119 GM BTL PO SCH (13:34)
[2018-12-11] MEDS: MAG HYDROX/ALH/SMC/DPHA/LIDO 240 ML MOUTHWASH MM SCH (17:35)
--- NOTE | 2018-12-11 18:45 | PN ---
Progress Note (short form) - Note Progress Note: Case discussed with Dr. Mata. Asked to re-evaluate patient for EGD. Pt still with increasing oxygen requirements (5L this am) from baseline 2L. Worsening hyponatremia also noted. Hb stable. No overt bleeding. Would continue to defer EGD at this time until patient further optimized as risks likely outweigh potential benefits currently in absence of overt bleeding. Continue PPI and monitor for overt bleeding. Pending course will determine timing of endoscopy accordingly. D/w medicine team.
[2018-12-11] MEDS: ATORVASTATIN CA 40 MG TABLET (FP) PO SCH (22:20)
[2018-12-11] MEDS: SENNOSIDES 8.6MG TABLET (FP) PO SCH (22:20)
[2018-12-12] MEDS: MAG HYDROX/ALH/SMC/DPHA/LIDO 240 ML MOUTHWASH MM SCH ×4 (00:01→18:18)
[2018-12-12] MEDS: AMPICILLIN NA/SULBACTAM NA 3 GM in SODIUM CHLORIDE 100 ML IVPB SCH ×2 (01:49→09:26)
[2018-12-12] MEDS: INSULIN SLIDING SCALE (NOVOLOG) 1 VIAL SQ SCH ×4 (06:10→22:50)
[2018-12-12] MEDS: GABAPENTIN 300 MG CAPSULE (FP) PO SCH ×3 (06:11→22:50)
[2018-12-12] MEDS: ALBUTEROL SO4 2.5/IPRATROPIUM 0.5 INH SOL 3 ML VIAL.NEB. NEB SCH ×4 (07:52→20:53)
[2018-12-12 08:03] LABS: ANION GAP 10 MMOL/L (8-16); BLOOD UREA NITROGEN 36 mg/dL (7-18); CALCIUM 7.7 mg/dL (8.5-10.1); CHLORIDE 97 mmol/L (98-107); CO2 25 mmol/L (21-32); CREATININE 2.3 mg/dL (0.55-1.3); GLUCOSE,RANDOM 124 mg/dL (74-106); MAGNESIUM 2.5 mg/dL (1.8-2.4); PHOSPHOROUS 5.6 mg/dL (2.5-4.9); POTASSIUM 3.9 mmol/L (3.5-5.1); SODIUM 133 mmol/L (136-145)
--- NOTE | 2018-12-12 08:09 | PN ---
Physical Exam: SUBJECTIVE: Patient seen and examined at bedside this morning. She endorses improvement of her abdominal pain, and distention. She denies subjective fevers , chills, shortness of breath, chest pain, palpitations, abdominal pain, nausea , vomiting. OBJECTIVE: Vital Signs Period Temp Pulse Resp BP Sys/[place] Pulse Ox Last 24 Hr 97 F-98.5 F 60-71 18-20 100-133/50-64 94-100 GENERAL: The patient is awake, alert, and fully oriented, in no mild distress. HEAD: Normocephalic, atraumatic. EYES: PERRL, extraocular movements intact, sclera anicteric, conjunctiva clear. ENT: Oropharynx erythematous, with exudates noted. Moist mucous membranes. NECK: Trachea midline, full range of motion. Supple without lymphadenopathy. LUNGS: Good inspiratory effort with poor air entry bilaterally. Bibasilar crackles auscultated bilaterally. No accessory muscle use. HEART: Regular rate and rhythm, S1, S2 auscultated with holosystolic murmur at right upper sternal border. ABDOMEN: Soft, distended, diffusely tender to deep palpation x4 quadrants, no rebound tenderness, no guarding. Normoactive bowel sounds x4 quadrants. No hepatosplenomegaly palpated or percussed. EXTREMITIES: 2+ radial, 1+ dorsalis pedis pulses bilaterally. warm, well perfused. 2+ lower extremity edema, with thickened skin, and chronic venous stasis changes bilaterally. NEUROLOGICAL: Cranial nerves II through XII grossly intact. Normal speech. No gross focal deficits. PSYCH: Normal mood, normal affect upon my encounter. Laboratory Results - last 24 hr 12/11/18 12/11/18 12/11/18 09:20 09:20 11:10 WBC 10.2 H RBC 3.46 L Hgb 9.1 L Hct 27.8 L MCV 80.4 MCH 26.3 MCHC 32.7 RDW 18.8 H Plt Count 276 MPV 8.6 Sodium 128 L Potassium 3.8 Chloride 93 L Carbon Dioxide 24 Anion Gap 11 BUN 39 H Creatinine 2.7 H Creat Clearance w eGFR 16.75 POC Glucometer Random Glucose 115 H Calcium 7.8 L Phosphorus Magnesium Group A Strep Rapid Negative 12/11/18 12/11/18 12/11/18 11:22 17:21 21:27 WBC RBC Hgb Hct MCV MCH MCHC RDW Plt Count MPV Sodium Potassium Chloride Carbon Dioxide Anion Gap BUN Creatinine Creat Clearance w eGFR POC Glucometer 124 198 170 Random Glucose Calcium Phosphorus Magnesium Group A Strep Rapid 12/12/18 12/12/18 05:58 06:25 WBC RBC Hgb Hct MCV MCH MCHC RDW Plt Count MPV Sodium 133 L Potassium 3.9 Chloride 97 L Carbon Dioxide 25 Anion Gap 10 BUN 36 H Creatinine 2.3 H Creat Clearance w eGFR 20.15 POC Glucometer 136 Random Glucose 124 H Calcium 7.7 L Phosphorus 5.6 H Magnesium 2.5 H Group A Strep Rapid Active Medications Generic Name Dose Route Start Last Admin Trade Name Freq PRN Reason Stop Dose Admin Acetaminophen 650 mg 12/12/18 08:08 Tylenol - PO Q6H PRN Fever Or Pain Albuterol/Ipratropium 1 amp 12/09/18 08:00 12/12/18 07:52 Duoneb - NEB 1 amp RQID [facility] Administration Atorvastatin Calcium 40 mg 12/05/18 22:00 12/11/18 22:20 Lipitor - PO 40 mg HS [facility] ELI[facility] Administration Docusate Sodium 100 mg 12/11/18 14:30 12/11/18 22:20 Colace - PO 100 mg BID [facility] Administration Ferrous Sulfate 325 mg 12/07/18 10:00 12/11/18 17:34 Feosol - PO 325 mg BIDWM [facility] ELI[facility] Administration Gabapentin 300 mg 12/05/18 22:00 12/12/18 06:11 Neurontin - PO 300 mg TID [facility] ELI[facility] Administration Ampicillin Sodium/Sulbactam 100 mls @ 200 mls/hr 12/08/18 18:00 12/12/18 01: 49 Sodium 3 gm/ Sodium Chloride IVPB 200 mls/hr Q8H-IV [facility] Administration Insulin Aspart 1 vial 12/06/18 22:00 12/12/18 06:10 Novolog Vial Sliding Scale - SQ Not Given ACHS [facility] Protocol Lidocaine/Aluminum/Magnesium/Simeth 5 ml 12/11/18 18:00 12/12/18 06:10 Magic Mouthwash *Sjr Formula* - MM Not Given Q6HPO [facility] ELIAS Nitroglycerin 0.4 mg 12/05/18 20:09 Nitrostat - SL Q5M PRN FOR CHEST PAIN Pantoprazole Sodium 40 mg 12/09/18 10:00 12/11/18 22:20 Protonix Iv IVPUSH 40 mg BID [facility] Administration Polyethylene Glycol 17 gm 12/06/18 10:00 12/11/18 13:34 Miralax (For Daily Use) - PO 17 gm DAILY [facility] Administration Senna 1 tab 12/11/18 22:00 12/11/18 22:20 Senna - PO 1 tab HS [facility] Administration ASSESSMENT/PLAN: Patient is an 83 year old female with history of hypertension, hyperlipidemia, diabetes mellitus, coronary artery disease and myocardial infarction s/p coronary stent (on Apirin, Brilinta), HFpEF, chronic kidney disease presents with complaint of chest tightness ongoing for past three days. Chest pain -Resolved. -Likely secondary to symptomatic anemia -EKG upon admission showed normal sinus rhythm, 1st degree AV block. No ischemic ST-T wave changes. -Troponin- I negative x2 -Cardiac ECHO shows left ventricular size thickness, function, ejection fraction normal. -Duplex of bilateral lower extremities negative for DVT -Chest radiograph shows no acute pathology. -Cardiolgy consult (Dr. Murguia) appreciated -Telemetry monitoring. Symptomatic Anemia -Patient does not appear to be actively bleeding. -Paitent is s/p transfusion 2 units PRBC -Given patient's history of myocardial infarct, and coronary artery disease, Hb transfusion goal should be above 8.0grams/ dL. -Protonix 40mg IV BID -Gastroenterology consult (Dr. Mata, Dr. Tol[place]) appreciated. After discussion of risks and benefits of the endoscopy, will hold off on pursuing the study at this time. Patient is not currently bleeding, and anemia was likely secondary to upper GI ulcer secondary to prolonged aspirin and Brilinta use. Risks currently outweigh benefits; discussed with patient. Acute on chronic respiratory failure -Currently close to baseline, saturating well on 3L nasal canula. -CT chest shows apical scarring, and bilateral atelectasis at the bases. -ABG shows no CO2 retention -Lasix 40mg IV one time dose today -Pulmonology consult (Dr. Croft) appreciated. Acute kidney injury -imporving -BUN 36, Cr 2.3 -300cc urine output overnight -Holding Ramipril 10mg PO daily -Discontinue Norvasc -Renal, bladder US shows no acute pathology. -Lasix 40mg IV today -Nephrology consult (Dr. Hua) appreciated. Coronary artery disease, history of [place] s/p stent -Aspirin 81mg PO reinstated. Monitor Hb, Hct and for signs of breathing -Brilinta discontinued, per cardiology recommendations as it has been greater than 3 years since last cardiac stent. -Cardiology consult (Dr. Murguia) appreciated. Diabetes mellitus -Insulin sliding scale ACHS -Fingerstick blood glucose monitoring ACHS Hypertension -Imdur 30mg PO daily Hyperlipidemia -Atorvastatin 40mg PO HS Right toenail infection -Patient completed 10 day course. -ID consult (Dr. Pat) appreciated. Pharyngitis -Oropharynx erythematous, with white exudates noted -Group A streptococcus throat swab negative -Follow throat culture -Magic mouthwash 5mL MM Q6 hours -Cephacol spray Q6 hours Bowel regimen -Miralax 17 grams PO daily -Colace 100mg PO BID -Senna 1 tablet PO HS Prophylaxis -Heparin 5000u subq TID -Protonix 40mg PO BID -Clear liquid diet Disposition -Continue care in Telemetry floor. Visit type - Emergency Visit Emergency Visit: Yes ED Registration Date: 12/05/18 Care time: The patient presented to the Emergency Department on the above date and was hospitalized for further evaluation of their emergent condition. - New Patient This patient is new to me today: No - Critical Care Critical Care patient: No - Discharge Referral Referred to [facility] Med P.C.: No
[2018-12-12] MEDS ORDERED: PT OWN MED DRAWER 7, Y5N ONE (09:11)
[2018-12-12] MEDS: PANTOPRAZOLE SODIUM 40 MG VIAL IVPUSH SCH (09:16)
[2018-12-12] MEDS: ACETAMINOPHEN 325 MG TABLET (FP) PO PRN ×2 (09:17→17:41)
[2018-12-12] MEDS: DOCUSATE SODIUM 100 MG CAPSULE (FP) PO SCH ×2 (09:17→22:50)
[2018-12-12] MEDS: FERROUS SO4 325 MG TABLET (FP) PO SCH ×2 (09:17→17:26)
[2018-12-12] MEDS: POLYETHYLENE GLYCOL 3350 119 GM BTL PO SCH (09:19)
--- NOTE | 2018-12-12 10:43 | PN ---
Teaching Attending Note Name of Resident: Greg Gomez ATTENDING PHYSICIAN STATEMENT I saw and evaluated the patient. I reviewed the resident's note and discussed the case with the resident. I agree with the resident's findings and plan as documented. SUBJECTIVE:breathing has improved. throat feels sore. denies CP, SOB,f ever, chills, cough, N/V/C/D OBJECTIVE: Last Vital Signs Temp Pulse Resp BP Pulse Ox 98.5 F 70 20 116/51 L 100 12/12/18 06:00 12/12/18 06:00 12/12/18 06:00 12/12/18 06:00 12/11/18 21:00 General NAD CV S1 S2 RRR no murmur/rub/gallop Lungs decreased breath sounds L bases. no wheezing extremiteis 2+ PItting edema B/L ASSESSMENT AND PLAN: 83 year old female with HTN, HLD, DM 2, CAD s/p NE s/p PCI/Stent (on Aspirin, Brilinta), CRF sec to Chronic Diastolic CHF, CKD 3, s/p chlecystecomy/ hysterectomy/tonsillectomy from [facility], currently on Augmentin for infected wound on R great toe, now presents with intermittent substernal chest pain, initially on exertion, now at rest. Also complained of worsening LE edema. 1. Angina secondary to Acute Blood Loss Anemia secondary to GI bleed, likely Upper. no repeat episodes of CP or bleeding. received 2 units PRBC this hospital stay. hgb has been stable and no episodes of bleeding noted. spoke with patient in detail about risks/benefits of EGD. agrees with no pursuing at this time given the risks with low benefit. understands there is still risk of having a mass or malignancy however agrees with not proceeding iwth the procedure at this time. will advance to regular diet. start asa 81mg and see if can take daily or Q48H to minimize bleeding risk. cont with PPI BID and can have close follow up [facility]. D. cardio and GI on board 2. Acute on chronic Respiratory failure- unclear from volume overload vs underlying pulmonary disease.currently 95% on 3L NC which is close to baseline. will give lasix 40mg IVP as improving well. leukocytosis resolved. ont nebs prn. pulmonary consulted 3. Abdominal pain-continues to have small BM, states abdominal pain has since resolved. cont stool softeners 4. SOre throat- concern for strep.improving. rapid strep negative 5. CAROLYN- due to medications vs pre-renal vs ATN. renal u/s and urine studies negative for acute disease. slowly trending down. monitor Cr. nephro consulted. 6. HTN- now normotensive. cont to hold antihypertensives. will re-start as needed 7. R toe infection- augmentin switch to unasyn. completed abx course 8. DVT ppx- SCD. 9. plan for d/c to SNF once medically optimized.
[2018-12-12] MEDS ORDERED: PHENOL 177 ML SPRAY BOTTLE MM PRN (11:03)
[2018-12-12] MEDS ORDERED: FUROSEMIDE 40 MG/4 ML INJECTABLE VIAL IVPUSH ONE (11:06)
--- NOTE | 2018-12-12 11:32 | PN ---
Progress Note (short form) - Note Progress Note: s: no chest pain, palps, dizziness. no sig sob. Current Medications Generic Name Dose Route Start Last Admin Trade Name Freq PRN Reason Stop Dose Admin Acetaminophen 650 mg 12/12/18 08:08 12/12/18 09:17 Tylenol - PO 650 mg Q6H PRN Administration Fever Or Pain Albuterol/Ipratropium 1 amp 12/09/18 08:00 12/12/18 11:13 Duoneb - NEB 1 amp RQID JOSE ELIAS Administration Aspirin 81 mg 12/12/18 11:15 Asa - PO DAILY JOSE ELIAS Atorvastatin Calcium 40 mg 12/05/18 22:00 12/11/18 22:20 Lipitor - PO 40 mg HS JOSE ELIAS Administration Docusate Sodium 100 mg 12/11/18 14:30 12/12/18 09:17 Colace - PO 100 mg BID JOSE ELIAS Administration Ferrous Sulfate 325 mg 12/07/18 10:00 12/12/18 09:17 Feosol - PO 325 mg BIDWM JOSE ELIAS Administration Furosemide 40 mg 12/12/18 11:06 Lasix Injection - IVPUSH 12/12/18 11:07 ONCE ONE Gabapentin 300 mg 12/05/18 22:00 12/12/18 06:11 Neurontin - PO 300 mg TID [facility] Administration Insulin Aspart 1 vial 12/06/18 22:00 12/12/18 11:25 Novolog Vial Sliding Scale - SQ Not Given ACHS [facility] Protocol Lidocaine/Aluminum/Magnesium/Simeth 5 ml 12/11/18 18:00 12/12/18 06:10 Magic Mouthwash *Sjr Formula* - MM Not Given Q6HPO [facility] Nitroglycerin 0.4 mg 12/05/18 20:09 Nitrostat - SL Q5M PRN FOR CHEST PAIN Pantoprazole Sodium 40 mg 12/09/18 10:00 12/12/18 09:16 Protonix Iv IVPUSH 40 mg BID [facility] Administration Phenol/Menthol 1 spray 12/12/18 11:03 Chloraseptic - MM Q6HPO PRN SORE THROAT Polyethylene Glycol 17 gm 12/06/18 10:00 12/12/18 09:19 Miralax (For Daily Use) - PO 17 gm DAILY JOSE ELIAS Administration Senna 1 tab 12/11/18 22:00 12/11/18 22:20 Senna - PO 1 tab HS JOSE ELIAS Administration Vital Signs Period Temp Pulse Resp BP Sys/[place]erson Pulse Ox Last 24 Hr 97.4 F-98.5 F 60-71 18-20 100-133/50-64 100 Constitutional: Yes: No Distress, Calm Eyes: No: Sclera Icterus HENT: No: Nasal Congestion Cardiovascular: Yes: Regular Rate and Rhythm, S1, S2, Other (PMI non diplaced). No: JVD (in chair), Gallop, Murmur Respiratory: Yes: CTA Bilaterally. No: Accessory Muscle Use Gastrointestinal: Yes: Normal Bowel Sounds, Soft. No: Tenderness Extremities: No: Cold, Cyanosis Edema: Yes (1+ pretib) Integumentary: No: Jaundice Neurological: Yes: Alert, Oriented (x3) Psychiatric: No: Agitated CBC, BMP 12/11/18 09:20 12/12/18 06:25 Assessment/Plan 06/2017 mibi: Stress test + for moderate intensity ischemia of posterior and lateral wall. ? TID [facility] 10/12: DAYANA to mLAD, PTCA of D1. residual 50-60% mRCA. OM1 chronically occluded fills via LAD collaterals Echo 12/13: nl LV/EF. nl RV. trace MR/TR, no RVSP. Echo 09/2017: tds; nl lv/rv, no sig valve path Echo 04/12: TDS. normal overall LVSF, can't r/o RWMAs. mild-mod RVE with mild hypo. mild-mod TR. RVSP 30-40 Echo 08/11: nl LV, nl RV, mild LAE, valve fxn WNL CXR: clear lungs/pleura ECG: sr, no ischemic changes CT chest: scarring at apices, scattered infiltrates patchy tele: sinus a/p: chest pain: -no signs acs or chf -trop neg x2, ECG non-ischemic -06/2017 mibi was reviewed by dr miller and felt to show only minimal inferolateral ischemia in area of patient's known residual disease, no significant TID is seen. -suspect symptoms were due to severe anemia sob, PND/orthopnea, hypoxia: -c/o sob when gets oob to bathroom, then orthopnea when returns to bed which resolves on its own -? JVD--tds exam -rales at bases. repeat CXR and repeat BNP -on lasix 40 po bid at home. received 40 IV x 2 doses yesterday. -12/07: lasix 40 IV x 1 dose now, then continue 40 iv bid for now--further dosing tbd -12/08: suspected volume up but creat bumped 1.1->1.9, lasix held -12/09: bun/creat 27/2.4. hypotensive to 80s overnight--she is likely dry. suspect non-cardiac cause of her sob. this creatinine behavior to moderate dose lasix is not consistent with elevated circulating fluid volume/hi filling pressures, echo images limited review today: RV enlarged but function preserved , no cause of cardiac output obstruction present.. suspect her nocturnal sob/ hypoxia is related to pulm etiology (pt on home O2 for few yrs, doesn't see pum) --rec pulm evaluation. -12/10-: holding diuretics until cr improves. pulm consulting for sob as well. 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 -suspect euvolemic at present--as above HTN: -stable on current meds -same plan
[2018-12-12] MEDS: ASPIRIN 81 MG CHEWABLE TABLETS PO SCH (11:53)
[2018-12-12 12:08] LABS: ALBUMIN 2.8 g/dl (3.4-5.0)
--- NOTE | 2018-12-12 12:57 | PN ---
Progress Note (short form) - Note Progress Note: OOB to chair. Feels breathing is close to her baseline. Currently on 5 L NC (on 2 L at home). No occult bleeding. Intake & Output 12/09/18 12/10/18 12/11/18 12/12/18 23:59 23:59 23:59 23:59 Intake Total 320 1750 540 460 Output Total 6041 802 9965 750 Balance -1230 1050 -1060 -290 Weight 191 lb 205 lb 205 lb 4 oz Last Vital Signs Temp Pulse Resp BP Pulse Ox 98.5 F 70 20 116/51 L 100 12/12/18 06:00 12/12/18 06:00 12/12/18 06:00 12/12/18 06:00 12/12/18 09:00 Active Medications Acetaminophen (Tylenol -) 650 mg PO Q6H PRN PRN Reason: Fever Or Pain Last Admin: 12/12/18 09:17 Dose: 650 mg Albuterol/Ipratropium (Duoneb -) 1 amp NEB RQID [facility] Last Admin: 12/12/18 11:13 Dose: 1 amp Aspirin (Asa -) 81 mg PO DAILY [facility] Last Admin: 12/12/18 11:53 Dose: 81 mg Atorvastatin Calcium (Lipitor -) 40 mg PO HS [facility] Last Admin: 12/11/18 22:20 Dose: 40 mg Docusate Sodium (Colace -) 100 mg PO BID [facility] Last Admin: 12/12/18 09:17 Dose: 100 mg Ferrous Sulfate (Feosol -) 325 mg PO BIDWM [facility] Last Admin: 12/12/18 09:17 Dose: 325 mg Gabapentin (Neurontin -) 300 mg PO TID [facility] Last Admin: 12/12/18 06:11 Dose: 300 mg Insulin Aspart (Novolog Vial Sliding Scale -) 1 vial SQ ACHS [facility]; Protocol Last Admin: 12/12/18 11:25 Dose: Not Given Lidocaine/Aluminum/Magnesium/Simeth (Magic Mouthwash *Sjr Formula* -) 5 ml MM Q6HPO [facility] Last Admin: 12/12/18 06:10 Dose: Not Given Nitroglycerin (Nitrostat -) 0.4 mg SL Q5M PRN PRN Reason: FOR CHEST PAIN Pantoprazole Sodium (Protonix Iv) 40 mg IVPUSH BID [facility] Last Admin: 12/12/18 09:16 Dose: 40 mg Phenol/Menthol (Chloraseptic -) 1 spray MM Q6HPO PRN PRN Reason: SORE THROAT Polyethylene Glycol (Miralax (For Daily Use) -) 17 gm PO DAILY [facility] Last Admin: 12/12/18 09:19 Dose: 17 gm Senna (Senna -) 1 tab PO HS [facility] Last Admin: 12/11/18 22:20 Dose: 1 tab Constitutional: Yes: Awake and alert, NAD Eyes: Yes: WNL HENT: Yes: WNL Neck: Yes: WNL Cardiovascular: Yes: Regular Rate and Rhythm, S1, S2 Respiratory: Yes: Few basilar rhonchi Gastrointestinal: Yes: Normal Bowel Sounds, Soft Extremities: Yes: WNL Edema: Yes Labs: Laboratory Results - last 24 hr 12/11/18 12/11/18 12/12/18 17:21 21:27 05:58 Sodium Potassium Chloride Carbon Dioxide Anion Gap BUN Creatinine Creat Clearance w eGFR POC Glucometer 198 170 136 Random Glucose Calcium Phosphorus Magnesium Albumin 12/12/18 12/12/18 06:25 11:24 Sodium 133 L Potassium 3.9 Chloride 97 L Carbon Dioxide 25 Anion Gap 10 BUN 36 H Creatinine 2.3 H Creat Clearance w eGFR 20.15 POC Glucometer 146 Random Glucose 124 H Calcium 7.7 L Phosphorus 5.6 H Magnesium 2.5 H Albumin 2.8 L Problem List - Problems (1) Anemia Code(s): D64.9 - ANEMIA, UNSPECIFIED Qualifiers: Anemia type: unspecified type Qualified Code(s): D64.9 - Anemia, unspecified (2) CAD (coronary artery disease) Code(s): I25.10 - ATHSCL HEART DISEASE OF [place] CORONARY ARTERY W/O ANG PCTRS Qualifiers: Coronary Disease-Associated Artery/Lesion type: unspecified vessel or lesion type [place] vs. transplanted heart: [place] heart Associated angina: with unstable angina Qualified Code(s): I25.110 - Atherosclerotic heart disease of [place] coronary artery with unstable angina pectoris (3) Chest pain Code(s): R07.9 - CHEST PAIN, UNSPECIFIED Qualifiers: Chest pain type: chest pain due to myocardial ischemia Ischemic chest pain type: unstable angina pectoris Qualified Code(s): I20.0 - Unstable angina (4) Renal failure Code(s): N19 - UNSPECIFIED KIDNEY FAILURE Qualifiers: Renal failure chronicity: chronic Chronic kidney disease stage: unspecified stage Qualified Code(s): N18.9 - Chronic kidney disease, unspecified (5) CHF (congestive heart failure) Code(s): I50.9 - HEART FAILURE, UNSPECIFIED Qualifiers: Qualified Code(s): I50.32 - Chronic diastolic (congestive) heart failure (6) Diabetes Code(s): E11.9 - TYPE 2 DIABETES MELLITUS WITHOUT COMPLICATIONS Qualifiers: Diabetes mellitus type: type 2 Diabetes mellitus buttermaker insulin use: unspecified halfway insulin use status Diabetes mellitus complication status : with hypoglycemia Diabetes mellitus complication detail: without coma Qualified Code(s): E11.649 - Type 2 diabetes mellitus with hypoglycemia without coma (7) Diastolic heart failure Code(s): I50.30 - UNSPECIFIED DIASTOLIC (CONGESTIVE) HEART FAILURE Qualifiers: Heart failure chronicity: chronic Qualified Code(s): I50.32 - Chronic diastolic (congestive) heart failure (8) Dyspnea Code(s): R06.00 - DYSPNEA, UNSPECIFIED (9) Edema Code(s): R60.9 - EDEMA, UNSPECIFIED (10) Acute renal failure superimposed on chronic kidney disease Code(s): N17.9 - ACUTE KIDNEY FAILURE, UNSPECIFIED; N18.9 - CHRONIC KIDNEY DISEASE, UNSPECIFIED (11) Acute on chronic respiratory failure with hypoxemia Code(s): J96.21 - ACUTE AND CHRONIC RESPIRATORY FAILURE WITH HYPOXIA Assessment/Plan IMP ACUTE ON CHRONIC HYPOXEMIC RESPIRATORY FAILURE ACUTE ON CHRONIC CHF improving DM ASHD S/P AL,S/P STENT ACUTE ON CHRONIC KIDNEY DISEASE ? FRANK ANEMIA ?LLL MASS/CONSOLIDATION/? ATELECTASIS PLAN LASIX INHALED BRONCHODILATORS DAILY WT MONITOR LYTES,RENAL FUNCTION,H+H OUTPATIENT SLEEP STUDY OUTPATIENT PFTS OFF ABX F/U CHEST CT 6 WKS TO DOCUMENT RESOLUTION D/C PLANNING Dr Atkins
--- NOTE | 2018-12-12 13:14 | PN ---
Progress Note, Physician History of Present Illness: Pt seen and examined at bedside. She feels that her edema is a little better. - Current Medication List Current Medications: Active Medications Acetaminophen (Tylenol -) 650 mg PO Q6H PRN PRN Reason: Fever Or Pain Last Admin: 12/12/18 09:17 Dose: 650 mg Albuterol/Ipratropium (Duoneb -) 1 amp NEB RQID [facility] Last Admin: 12/12/18 11:13 Dose: 1 amp Aspirin (Asa -) 81 mg PO DAILY [facility] Last Admin: 12/12/18 11:53 Dose: 81 mg Atorvastatin Calcium (Lipitor -) 40 mg PO HS [facility] Last Admin: 12/11/18 22:20 Dose: 40 mg Docusate Sodium (Colace -) 100 mg PO BID [facility] Last Admin: 12/12/18 09:17 Dose: 100 mg Ferrous Sulfate (Feosol -) 325 mg PO BIDWM [facility] Last Admin: 12/12/18 09:17 Dose: 325 mg Gabapentin (Neurontin -) 300 mg PO TID [facility] Last Admin: 12/12/18 13:06 Dose: 300 mg Insulin Aspart (Novolog Vial Sliding Scale -) 1 vial SQ [facility]; Protocol Last Admin: 12/12/18 11:25 Dose: Not Given Lidocaine/Aluminum/Magnesium/Simeth (Magic Mouthwash *Sjr Formula* -) 5 ml MM Q6HPO [facility] Last Admin: 12/12/18 13:06 Dose: 5 ml Nitroglycerin (Nitrostat -) 0.4 mg SL Q5M PRN PRN Reason: FOR CHEST PAIN Pantoprazole Sodium (Protonix Iv) 40 mg IVPUSH BID [facility] Last Admin: 12/12/18 09:16 Dose: 40 mg Phenol/Menthol (Chloraseptic -) 1 spray MM Q6HPO PRN PRN Reason: SORE THROAT Polyethylene Glycol (Miralax (For Daily Use) -) 17 gm PO DAILY [facility] Last Admin: 12/12/18 09:19 Dose: 17 gm Senna (Senna -) 1 tab PO HS [facility] Last Admin: 12/11/18 22:20 Dose: 1 tab - Objective Vital Signs: Vital Signs Temperature 98.5 F 12/12/18 06:00 Pulse Rate 70 12/12/18 06:00 Respiratory Rate 20 12/12/18 06:00 Blood Pressure 116/51 L 12/12/18 06:00 O2 Sat by Pulse Oximetry (%) 100 12/12/18 09:00 Constitutional: Yes: Calm Eyes: Yes: Conjunctiva Clear HENT: Yes: Atraumatic Cardiovascular: Yes: S1, S2 Respiratory: Yes: On Nasal O2, Rhonchi Gastrointestinal: Yes: Soft, Abdomen, Obese Genitourinary: Yes: Rodriguez Present Musculoskeletal: Yes: WNL Edema: Yes Edema: LLE: 2+, RLE: 3+ Neurological: Yes: Oriented Psychiatric: Yes: Oriented Labs: CBC, BMP 12/11/18 09:20 12/12/18 06:25 INR, PTT INR 1.05 (0.83-1.09) 12/08/18 05:30 Problem List - Problems (1) Anemia Code(s): D64.9 - ANEMIA, UNSPECIFIED Qualifiers: Anemia type: unspecified type Qualified Code(s): D64.9 - Anemia, unspecified (2) Angina at rest Code(s): I20.8 - OTHER FORMS OF ANGINA PECTORIS (3) CAD (coronary artery disease) Code(s): I25.10 - ATHSCL HEART DISEASE OF [place] CORONARY ARTERY W/O ANG PCTRS Qualifiers: Coronary Disease-Associated Artery/Lesion type: unspecified vessel or lesion type [place] vs. transplanted heart: [place] heart Associated angina: with unstable angina Qualified Code(s): I25.110 - Atherosclerotic heart disease of [place] coronary artery with unstable angina pectoris (4) Renal failure Code(s): N19 - UNSPECIFIED KIDNEY FAILURE Qualifiers: Renal failure chronicity: chronic Chronic kidney disease stage: unspecified stage Qualified Code(s): N18.9 - Chronic kidney disease, unspecified (5) CKD (chronic kidney disease) Code(s): N18.9 - CHRONIC KIDNEY DISEASE, UNSPECIFIED Assessment/Plan Current Medications Generic Name Dose Route Start Last Admin Trade Name Freq PRN Reason Stop Dose Admin Acetaminophen 650 mg 12/12/18 08:08 12/12/18 09:17 Tylenol - PO 650 mg Q6H PRN Administration Fever Or Pain Albuterol/Ipratropium 1 amp 12/09/18 08:00 12/12/18 11:13 Duoneb - NEB 1 amp RQID JOSE ELIAS Administration Aspirin 81 mg 12/12/18 11:15 12/12/18 11:53 Asa - PO 81 mg DAILY JOSE ELIAS Administration Atorvastatin Calcium 40 mg 12/05/18 22:00 12/11/18 22:20 Lipitor - PO 40 mg HS JOSE ELIAS Administration Docusate Sodium 100 mg 12/11/18 14:30 12/12/18 09:17 Colace - PO 100 mg BID JOSE ELIAS Administration Ferrous Sulfate 325 mg 12/07/18 10:00 12/12/18 09:17 Feosol - PO 325 mg BIDWM JOSE ELIAS Administration Gabapentin 300 mg 12/05/18 22:00 12/12/18 13:06 Neurontin - PO 300 mg TID JOSE ELIAS Administration Insulin Aspart 1 vial 12/06/18 22:00 12/12/18 11:25 Novolog Vial Sliding Scale - SQ Not Given ACHS [facility] Protocol Lidocaine/Aluminum/Magnesium/Simeth 5 ml 12/11/18 18:00 12/12/18 13:06 Magic Mouthwash *Sjr Formula* - MM 5 ml Q6HPO JOSE ELIAS Administration Nitroglycerin 0.4 mg 12/05/18 20:09 Nitrostat - SL Q5M PRN FOR CHEST PAIN Pantoprazole Sodium 40 mg 12/09/18 10:00 12/12/18 09:16 Protonix Iv IVPUSH 40 mg BID JOSE ELIAS Administration Phenol/Menthol 1 spray 12/12/18 11:03 Chloraseptic - MM Q6HPO PRN SORE THROAT Polyethylene Glycol 17 gm 12/06/18 10:00 12/12/18 09:19 Miralax (For Daily Use) - PO 17 gm DAILY JOSE ELIAS Administration Senna 1 tab 12/11/18 22:00 12/11/18 22:20 Senna - PO 1 tab HS JOSE ELIAS Administration Impression 1. CAROLYN 2. dyspnea 3. CAD 4. HTN 5. DM 6. CHF 7. hyperlipidemia 8. renal cyst 9. CKD 10. hx of urinary retention Plan - will give another dose of lasix today - renal function is improving - sodium improving - keep bp meds on hold for now - she remains fluid overloaded - keep net negative - pt may have atn from hypotension Dr Hua
--- NOTE | 2018-12-12 15:30 | PN.GI ---
GI Progress Note Subjective: For Dr. Mata. Dr. Man covering tomorrow No acute events Resp status improving No melena/rectal bleeding - Objective Vital Signs: Vital Signs Temperature 98.3 F 12/12/18 14:07 Pulse Rate 66 12/12/18 14:07 Respiratory Rate 18 12/12/18 14:07 Blood Pressure 107/43 L 12/12/18 14:07 O2 Sat by Pulse Oximetry (%) 100 12/12/18 09:00 Constitutional: Calm Eyes: No: Sclera Icterus Cardiovascular: Yes: Regular Rate and Rhythm, Murmur Respiratory: Yes: Wheezes (left lung field) ...Auscultate: Yes: Normoactive Bowel Sounds ...Palpate: No: Tenderness ...Percussion: No: Tympanitic Edema: Yes Edema: LLE: 3+, RLE: 3+ Neurological: Yes: Alert Labs: CBC, BMP 12/11/18 09:20 12/12/18 06:25 INR, PTT INR 1.05 (0.83-1.09) 12/08/18 05:30 Hepatic Panel Total Bilirubin 0.3 mg/dL (0.2-1) 12/10/18 05:30 AST 7 U/L (15-37) L 12/10/18 05:30 ALT 14 U/L (13-61) 12/10/18 05:30 Alkaline Phosphatase 134 U/L (45-117) H 12/10/18 05:30 Albumin 2.8 g/dl (3.4-5.0) L 12/12/18 06:25 Problem List - Problems (1) Anemia Assessment/Plan: EGD deferred at this time. Awaiting medical optimization Changed to PO Protonix 40mg PO BID Dr. Man coering for Dr. Mata tomorrow 12/13 Code(s): D64.9 - ANEMIA, UNSPECIFIED Qualifiers: Anemia type: unspecified type Qualified Code(s): D64.9 - Anemia, unspecified
[2018-12-12 16:15] VITALS: BMI 37.5
[2018-12-12] MEDS: PANTOPRAZOLE 40 MG TABLET (FP) PO SCH (22:49)
[2018-12-12] MEDS: SENNOSIDES 8.6MG TABLET (FP) PO SCH (22:50)
[2018-12-12] MEDS: ATORVASTATIN CA 40 MG TABLET (FP) PO SCH (22:50)
[2018-12-13] MEDS: MAG HYDROX/ALH/SMC/DPHA/LIDO 240 ML MOUTHWASH MM SCH ×3 (00:27→13:01)
[2018-12-13] MEDS: GABAPENTIN 300 MG CAPSULE (FP) PO SCH ×2 (05:18→15:02)
[2018-12-13] MEDS: ACETAMINOPHEN 325 MG TABLET (FP) PO PRN (05:18)
[2018-12-13] MEDS: INSULIN SLIDING SCALE (NOVOLOG) 1 VIAL SQ SCH ×3 (05:59→16:56)
[2018-12-13 06:15] LABS: HEMATOCRIT 28.5 % (32.4-45.2); HEMOGLOBIN 9.2 GM/dL (10.7-15.3); MCH 26.3 pg (25.7-33.7); MCHC 32.4 g/dl (32.0-36.0); MEAN CELL VOLUME 81.1 fl (80-96); MEAN PLT VOLUME 9.2 fl (7.5-11.1); PLATELET COUNT 253 K/MM3 (134-434); RBC 3.52 M/mm3 (3.60-5.2); RDW 18.4 % (11.6-15.6); WHITE BLOOD COUNT 7.4 K/mm3 (4.0-10.0)
--- NOTE | 2018-12-13 07:59 | PN ---
Physical Exam: SUBJECTIVE: Patient seen and examined at bedside this morning. She endorses improvement of her breathing, saturating well on 2L oxygen home dose. Patient complains of left lower extremity pain, described as cramping, at left lateral thigh. Denies trauma to area or fall. Patient denies subjective fevers, chills, shortness of breath, chest pain, palpitations, abdominal pain, nausea, vomiting. OBJECTIVE: Vital Signs Period Temp Pulse Resp BP Sys/[place] Pulse Ox Last 24 Hr 97.9 F-98.3 F 60-98 18-20 107-148/43-78 96-100 GENERAL: The patient is awake, alert, and fully oriented, in mild distress. HEAD: Normocephalic, atraumatic. EYES: PERRL, extraocular movements intact, sclera anicteric, conjunctiva clear. ENT: Oropharynx erythematous, with exudates noted. Moist mucous membranes. NECK: Trachea midline, full range of motion. Supple without lymphadenopathy. LUNGS: Good inspiratory effort with improving air entry bilaterally. No accessory muscle use. HEART: Regular rate and rhythm, S1, S2 auscultated with holosystolic murmur at right upper sternal border. ABDOMEN: Soft, distended, non tender to light or deep palpation x4 quadrants. No rebound tenderness, no guarding. Normoactive bowel sounds x4 quadrants. No hepatosplenomegaly palpated or percussed. EXTREMITIES: 2+ radial, 1+ dorsalis pedis pulses bilaterally. warm, well perfused. 2+ lower extremity edema, with thickened skin, and chronic venous stasis changes bilaterally. Left lower extremity tender to palpation at left lateral thigh. NEUROLOGICAL: Cranial nerves II through XII grossly intact. Normal speech. No gross focal deficits. PSYCH: Normal mood, normal affect upon my encounter. Laboratory Results - last 24 hr 12/12/18 12/12/18 12/12/18 06:25 11:24 17:25 WBC RBC Hgb Hct MCV MCH MCHC RDW Plt Count MPV Sodium 133 L Potassium 3.9 Chloride 97 L Carbon Dioxide 25 Anion Gap 10 BUN 36 H Creatinine 2.3 H Creat Clearance w eGFR 20.15 POC Glucometer 146 145 Random Glucose 124 H Calcium 7.7 L Phosphorus 5.6 H Magnesium 2.5 H Albumin 2.8 L 12/12/18 12/13/18 12/13/18 21:38 05:16 05:30 WBC 7.4 RBC 3.52 L Hgb 9.2 L Hct 28.5 L MCV 81.1 MCH 26.3 MCHC 32.4 RDW 18.4 H Plt Count 253 MPV 9.2 Sodium Potassium Chloride Carbon Dioxide Anion Gap BUN Creatinine Creat Clearance w eGFR POC Glucometer 152 125 Random Glucose Calcium Phosphorus Magnesium Albumin Active Medications Generic Name Dose Route Start Last Admin Trade Name Freq PRN Reason Stop Dose Admin Acetaminophen 650 mg 12/12/18 08:08 12/13/18 05:18 Tylenol - PO 650 mg Q6H PRN Administration Fever Or Pain Albuterol/Ipratropium 1 amp 12/09/18 08:00 12/12/18 20:53 Duoneb - NEB Not Given RQID [facility] Aspirin 81 mg 12/12/18 11:15 12/12/18 11:53 Asa - PO 81 mg DAILY [facility] Administration Atorvastatin Calcium 40 mg 12/05/18 22:00 12/12/18 22:50 Lipitor - PO 40 mg HS [facility] Administration Docusate Sodium 100 mg 12/11/18 14:30 12/12/18 22:50 Colace - PO 100 mg BID [facility] Administration Ferrous Sulfate 325 mg 12/07/18 10:00 12/12/18 17:26 Feosol - PO 325 mg BIDWM [facility] Administration Gabapentin 300 mg 12/05/18 22:00 12/13/18 05:18 Neurontin - PO 300 mg TID [facility] Administration Heparin Sodium (Porcine) 5,000 unit 12/13/18 08:00 Heparin - SQ TID [facility] Insulin Aspart 1 vial 12/06/18 22:00 12/13/18 05:59 Novolog Vial Sliding Scale - SQ Not Given ACHS [facility] Protocol Lidocaine/Aluminum/Magnesium/Simeth 5 ml 12/11/18 18:00 12/13/18 05:18 Magic Mouthwash *Sjr Formula* - MM Not Given Q6HPO [facility] Nitroglycerin 0.4 mg 12/05/18 20:09 Nitrostat - SL Q5M PRN FOR CHEST PAIN Pantoprazole Sodium 40 mg 12/12/18 22:00 12/12/18 22:49 Protonix - PO 40 mg BID [facility] Administration Phenol/Menthol 1 spray 12/12/18 11:03 Chloraseptic - MM Q6HPO PRN SORE THROAT Polyethylene Glycol 17 gm 12/06/18 10:00 12/12/18 09:19 Miralax (For Daily Use) - PO 17 gm DAILY [facility] Administration Senna 1 tab 12/11/18 22:00 12/12/18 22:50 Senna - PO 1 tab HS [facility] Administration ASSESSMENT/PLAN: Patient is an 83 year old female with history of hypertension, hyperlipidemia, diabetes mellitus, coronary artery disease and myocardial infarction s/p coronary stent (on Apirin, Brilinta), HFpEF, chronic kidney disease presents with complaint of chest tightness ongoing for past three days. Chest pain -Resolved. -Likely secondary to symptomatic anemia -EKG upon admission showed normal sinus rhythm, 1st degree AV block. No ischemic ST-T wave changes. -Troponin- I negative x2 -Cardiac ECHO shows left ventricular size thickness, function, ejection fraction normal. -Duplex of bilateral lower extremities negative for DVT -Chest radiograph shows no acute pathology. -Cardiolgy consult (Dr. Murguia) appreciated -Telemetry monitoring. Symptomatic Anemia -Patient does not appear to be actively bleeding. -Paitent is s/p transfusion 2 units PRBC -Given patient's history of myocardial infarct, and coronary artery disease, Hb transfusion goal should be above 8.0grams/ dL. -Protonix 40mg IV BID -Gastroenterology consult (Dr. Mata, Dr. Toledo) appreciated. After discussion of risks and benefits of the endoscopy, will hold off on pursuing the study at this time. Patient is not currently bleeding, and anemia was likely secondary to upper GI ulcer secondary to prolonged aspirin and Brilinta use. Risks currently outweigh benefits; discussed with patient. Acute on chronic respiratory failure -Currently close to baseline, saturating well on 3L nasal canula. -CT chest shows apical scarring, and bilateral atelectasis at the bases. -ABG shows no CO2 retention -Lasix 40mg IV one time dose today -Pulmonology consult (Dr. Croft) appreciated. Acute kidney injury -imporving -BUN 36, Cr 1.9 -800cc urine output overnight -Holding Ramipril 10mg PO daily -Discontinue Norvasc -Renal, bladder US shows no acute pathology. -Lasix 40mg IV today -Nephrology consult (Dr. Hua) appreciated. Coronary artery disease, history of NH s/p stent -Aspirin 81mg PO reinstated. Monitor Hb, Hct and for signs of bleeding. -Brilinta discontinued, per cardiology recommendations as it has been greater than 3 years since last cardiac stent. -Cardiology consult (Dr. Murguia) appreciated. Diabetes mellitus -Insulin sliding scale ACHS -Fingerstick blood glucose monitoring ACHS Hypertension -Imdur 30mg PO daily Hyperlipidemia -Atorvastatin 40mg PO HS Right toenail infection -Patient completed 10 day antibiotics course. -ID consult (Dr. Pat) appreciated. Pharyngitis -Oropharynx erythematous, with white exudates noted -Group A streptococcus throat swab negative -Throat culture growing yeast like organism -Magic mouthwash 5mL MM Q6 hours -Cephacol spray Q6 hours Left lower extremity pain -Likely secondary to fluid overload vs. muscle spasm -Duplex Us lower extremities negative for DVT upon admission -Follow repeat duplex Us of lower extremities to rule out DVT -Flexeril 5mg PO STAT -Tylenol 650mg PO Q6H PRN Bowel regimen -Miralax 17 grams PO daily -Colace 100mg PO BID -Senna 1 tablet PO HS Prophylaxis -Heparin 5000u subq TID -Protonix 40mg PO BID -Diabetic, sodium controlled diet Disposition -Continue care in Telemetry floor.
[2018-12-13 08:06] LABS: ALBUMIN 2.9 g/dl (3.4-5.0); ALK PHOS 129 U/L (45-117); ANION GAP 8 MMOL/L (8-16); BILIRUBIN,TOTAL 0.3 mg/dL (0.2-1); BLOOD UREA NITROGEN 36 mg/dL (7-18); CALCIUM 8.2 mg/dL (8.5-10.1); CHLORIDE 102 mmol/L (98-107); CO2 27 mmol/L (21-32); CREATININE 1.9 mg/dL (0.55-1.3); GLUCOSE,RANDOM 129 mg/dL (74-106); SGOT/AST 14 U/L (15-37); SGPT/ALT 19 U/L (13-61); SODIUM 137 mmol/L (136-145)
[2018-12-13] MEDS: ALBUTEROL SO4 2.5/IPRATROPIUM 0.5 INH SOL 3 ML VIAL.NEB. NEB SCH ×4 (08:17→20:41)
--- NOTE | 2018-12-13 08:32 | PN ---
Progress Note, Physician Chief Complaint: seen and examined denies CP, SOB TELE: nsr - Current Medication List Current Medications: Active Medications Acetaminophen (Tylenol -) 650 mg PO Q6H PRN PRN Reason: Fever Or Pain Last Admin: 12/13/18 05:18 Dose: 650 mg Albuterol/Ipratropium (Duoneb -) 1 amp NEB RQID [facility] Last Admin: 12/13/18 08:17 Dose: 1 amp Aspirin (Asa -) 81 mg PO DAILY [facility] Last Admin: 12/12/18 11:53 Dose: 81 mg Atorvastatin Calcium (Lipitor -) 40 mg PO HS [facility] Last Admin: 12/12/18 22:50 Dose: 40 mg Docusate Sodium (Colace -) 100 mg PO BID [facility] Last Admin: 12/12/18 22:50 Dose: 100 mg Ferrous Sulfate (Feosol -) 325 mg PO BIDWM [facility] Last Admin: 12/12/18 17:26 Dose: 325 mg Gabapentin (Neurontin -) 300 mg PO TID [facility] Last Admin: 12/13/18 05:18 Dose: 300 mg Heparin Sodium (Porcine) (Heparin -) 5,000 unit SQ TID [facility] Insulin Aspart (Novolog Vial Sliding Scale -) 1 vial SQ [facility]; Protocol Last Admin: 12/13/18 05:59 Dose: Not Given Lidocaine/Aluminum/Magnesium/Simeth (Magic Mouthwash *Sjr Formula* -) 5 ml MM Q6HPO [facility] Last Admin: 12/13/18 05:18 Dose: Not Given Nitroglycerin (Nitrostat -) 0.4 mg SL Q5M PRN PRN Reason: FOR CHEST PAIN Pantoprazole Sodium (Protonix -) 40 mg PO BID [facility] Last Admin: 12/12/18 22:49 Dose: 40 mg Phenol/Menthol (Chloraseptic -) 1 spray MM Q6HPO PRN PRN Reason: SORE THROAT Polyethylene Glycol (Miralax (For Daily Use) -) 17 gm PO DAILY [facility] Last Admin: 12/12/18 09:19 Dose: 17 gm Senna (Senna -) 1 tab PO HS [facility] Last Admin: 12/12/18 22:50 Dose: 1 tab - Objective Vital Signs: Vital Signs Temperature 97.9 F 12/13/18 06:00 Pulse Rate 98 H 12/13/18 06:00 Respiratory Rate 18 12/13/19 06:00 Blood Pressure 148/78 12/13/18 06:00 O2 Sat by Pulse Oximetry (%) 96 12/12/18 21:00 Constitutional: Yes: No Distress Cardiovascular: Yes: Regular Rate and Rhythm Respiratory: Yes: CTA Bilaterally Gastrointestinal: Yes: Soft Edema: No Neurological: Yes: Alert, Oriented Labs: CBC, BMP 12/13/18 05:30 12/13/18 05:30 INR, PTT INR 1.05 (0.83-1.09) 12/08/18 05:30 - ....Imaging EKG: Image Reviewed Assessment/Plan IMP: 1. Anemia 2. CAD s/p remote PCI, residual CAD 3. Chronic diastolic CHF 4. CAROLYN REC: 1. Cont. ASA and statin 2. Renal fxn improving 3. Further w/u of anemia as per PMD/GI 4. Appears euvolemic at this time. Will follow.
[2018-12-13] MEDS ORDERED: morphine SULFATE 4 MG/ML VIAL IVPUSH ONE (08:44)
[2018-12-13] MEDS: ASPIRIN 81 MG CHEWABLE TABLETS PO SCH (09:10)
[2018-12-13] MEDS: DOCUSATE SODIUM 100 MG CAPSULE (FP) PO SCH (09:10)
[2018-12-13] MEDS: HEPARIN NA (PORCINE) 5,000 UNITS/ML 1ML VIAL SQ SCH ×2 (09:10→14:02)
[2018-12-13] MEDS: PANTOPRAZOLE 40 MG TABLET (FP) PO SCH (09:10)
[2018-12-13] MEDS: FERROUS SO4 325 MG TABLET (FP) PO SCH ×2 (09:10→16:54)
[2018-12-13] MEDS: POLYETHYLENE GLYCOL 3350 119 GM BTL PO SCH (09:13)
[2018-12-13] MEDS ORDERED: CYCLOBENZAPRINE HCL 5 MG TABLET PO ONE (09:43)
[2018-12-13] MEDS ORDERED: FUROSEMIDE 40 MG/4 ML INJECTABLE VIAL IVPUSH ONE (09:44)
--- NOTE | 2018-12-13 10:35 | PN ---
Teaching Attending Note Name of Resident: Greg Gomez ATTENDING PHYSICIAN STATEMENT I saw and evaluated the patient. I reviewed the resident's note and discussed the case with the resident. I agree with the resident's findings and plan as documented. SUBJECTIVE:c/o L thigh pain which is radiating down the leg. denies Cp, SOB, fever, chills, N/V/C/D OBJECTIVE: Last Vital Signs Temp Pulse Resp BP Pulse Ox 97.4 F L 62 18 112/41 L 96 12/13/18 09:24 12/13/18 09:24 12/13/18 09:24 12/13/18 09:24 12/12/18 21:00 General NAD CV S1 S2 RRR no murmur/rub/gallop Lungs CTA B/L no wheezing/rales/rhonchi. no wheezing extremiteis LLE no bone point pain. skin feels tense on L upper lateral area but is not TTP. 2+ PItting edema B/L ASSESSMENT AND PLAN: 83 year old female with HTN, HLD, DM 2, CAD s/p VT s/p PCI/Stent (on Aspirin, Brilinta), CRF sec to Chronic Diastolic CHF, CKD 3, s/p chlecystecomy/ hysterectomy/tonsillectomy from [facility], currently on Augmentin for infected wound on R great toe, now presents with intermittent substernal chest pain, initially on exertion, now at rest. Also complained of worsening LE edema. 1. Angina secondary to Acute Blood Loss Anemia secondary to GI bleed, likely Upper. no repeat episodes of CP or bleeding. received 2 units PRBC this hospital stay. hgb has been stable and no episodes of bleeding noted. re- started asa 81mg. Hgb has been stable. no notes of bleeding. no plan for EGD at this time. cardio and GI on board 2. Acute on chronic Respiratory failure- unclear from volume overload vs underlying pulmonary disease.currently 95% on 2L NC which is close to baseline. will give lasix 40mg IVP as improving well. leukocytosis resolved. ont nebs prn. pulmonary consulted 3. Abdominal pain-continues to have small BM, states abdominal pain has since resolved. cont stool softeners 4. SOre throat- concern for strep.improving. rapid strep negative 5. L thigh pain- skin appears tight in this region. concern for hematoma vs muscular pain. will get doppler to r/o DVT (as was not on anticoagulation due to GI bleed) and soft tissue u/s to r/o hematoma. give flexeril for pain relief. will also give lasix 40mg IVP x1 as edema might be tracking and contributing to pain. place of GORDO and elevate extremities 6. CAROLYN- due to medications vs pre-renal vs ATN. renal u/s and urine studies negative for acute disease. slowly trending down. monitor Cr. nephro consulted. 7. HTN- now normotensive. cont to hold antihypertensives. will re-start as needed 8. R toe infection- augmentin switch to unasyn. completed abx course 9. DVT ppx- SCD. 10. anticipate d/c to SNF later today or tomorrow
--- NOTE | 2018-12-13 10:43 | PN ---
Progress Note (short form) - Note Progress Note: PULMONARY OOB to chair. Complaining of left distal/lateral thigh pain Remains on nasal 02 No occult bleeding. Active Medications/notes/images reviewed Constitutional: Yes: Awake and alert, NAD Eyes: Yes: WNL HENT: Yes: WNL Neck: Yes: WNL Cardiovascular: Yes: Regular Rate and Rhythm, S1, S2 Respiratory: Yes: Few basilar rhonchi Gastrointestinal: Yes: Normal Bowel Sounds, Soft Extremities: Yes: WNL Edema: Yes left lower ext greater than right Labs: Problem List (1) Anemia Code(s): D64.9 - ANEMIA, UNSPECIFIED Qualifiers: Anemia type: unspecified type Qualified Code(s): D64.9 - Anemia, unspecified (2) CAD (coronary artery disease) Code(s): I25.10 - ATHSCL HEART DISEASE OF [place] CORONARY ARTERY W/O ANG PCTRS Qualifiers: Coronary Disease-Associated Artery/Lesion type: unspecified vessel or lesion type [place] vs. transplanted heart: [place] heart Associated angina: with unstable angina Qualified Code(s): I25.110 - Atherosclerotic heart disease of [place] coronary artery with unstable angina pectoris (3) Chest pain Code(s): R07.9 - CHEST PAIN, UNSPECIFIED Qualifiers: Chest pain type: chest pain due to myocardial ischemia Ischemic chest pain type: unstable angina pectoris Qualified Code(s): I20.0 - Unstable angina (4) Renal failure Code(s): N19 - UNSPECIFIED KIDNEY FAILURE Qualifiers: Renal failure chronicity: chronic Chronic kidney disease stage: unspecified stage Qualified Code(s): N18.9 - Chronic kidney disease, unspecified (5) CHF (congestive heart failure) Code(s): I50.9 - HEART FAILURE, UNSPECIFIED Qualifiers: Qualified Code(s): I50.32 - Chronic diastolic (congestive) heart failure (6) Diabetes Code(s): E11.9 - TYPE 2 DIABETES MELLITUS WITHOUT COMPLICATIONS Qualifiers: Diabetes mellitus type: type 2 Diabetes mellitus skilled nursing insulin use: unspecified termite treater helper insulin use status Diabetes mellitus complication status : with hypoglycemia Diabetes mellitus complication detail: without coma Qualified Code(s): E11.649 - Type 2 diabetes mellitus with hypoglycemia without coma (7) Diastolic heart failure Code(s): I50.30 - UNSPECIFIED DIASTOLIC (CONGESTIVE) HEART FAILURE Qualifiers: Heart failure chronicity: chronic Qualified Code(s): I50.32 - Chronic diastolic (congestive) heart failure (8) Dyspnea Code(s): R06.00 - DYSPNEA, UNSPECIFIED (9) Edema Code(s): R60.9 - EDEMA, UNSPECIFIED (10) Acute renal failure superimposed on chronic kidney disease Code(s): N17.9 - ACUTE KIDNEY FAILURE, UNSPECIFIED; N18.9 - CHRONIC KIDNEY DISEASE, UNSPECIFIED (11) Acute on chronic respiratory failure with hypoxemia Code(s): J96.21 - ACUTE AND CHRONIC RESPIRATORY FAILURE WITH HYPOXIA IMP ACUTE ON CHRONIC HYPOXEMIC RESPIRATORY FAILURE ACUTE ON CHRONIC CHF improving DM ASHD S/P ME,S/P STENT ACUTE ON CHRONIC KIDNEY DISEASE Likely OSAS ANEMIA ?RLL MASS/CONSOLIDATION/? ATELECTASIS PLAN LASIX INHALED BRONCHODILATORS DAILY WT MONITOR LYTES,RENAL FUNCTION,H+H OUTPATIENT SLEEP STUDY OUTPATIENT PFTS OFF ABX F/U CHEST CT 6 WKS TO DOCUMENT RESOLUTION D/C PLANNING Mari BEACH MD
--- NOTE | 2018-12-13 11:49 | PN ---
Progress Note, Physician History of Present Illness: Pt seen and examined at bedside. She is awake and alert. She still complains of lower ext edema. - Current Medication List Current Medications: Active Medications Acetaminophen (Tylenol -) 650 mg PO Q6H PRN PRN Reason: Fever Or Pain Last Admin: 12/13/18 05:18 Dose: 650 mg Albuterol/Ipratropium (Duoneb -) 1 amp NEB RQID [facility] Last Admin: 12/13/18 08:17 Dose: 1 amp Aspirin (Asa -) 81 mg PO DAILY [facility] Last Admin: 12/13/18 09:10 Dose: 81 mg Atorvastatin Calcium (Lipitor -) 40 mg PO HS [facility] Last Admin: 12/12/18 22:50 Dose: 40 mg Docusate Sodium (Colace -) 100 mg PO BID [facility] Last Admin: 12/13/18 09:10 Dose: 100 mg Ferrous Sulfate (Feosol -) 325 mg PO BIDWM [facility] Last Admin: 12/13/18 09:10 Dose: 325 mg Gabapentin (Neurontin -) 300 mg PO TID [facility] Last Admin: 12/13/18 05:18 Dose: 300 mg Heparin Sodium (Porcine) (Heparin -) 5,000 unit SQ TID [facility] Last Admin: 12/13/18 09:10 Dose: 5,000 unit Insulin Aspart (Novolog Vial Sliding Scale -) 1 vial SQ [facility]; Protocol Last Admin: 12/13/18 11:39 Dose: 1 unit Lidocaine/Aluminum/Magnesium/Simeth (Magic Mouthwash *Sjr Formula* -) 5 ml MM Q6HPO [facility] Last Admin: 12/13/18 05:18 Dose: Not Given Nitroglycerin (Nitrostat -) 0.4 mg SL Q5M PRN PRN Reason: FOR CHEST PAIN Pantoprazole Sodium (Protonix -) 40 mg PO BID [facility] Last Admin: 12/13/18 09:10 Dose: 40 mg Phenol/Menthol (Chloraseptic -) 1 spray MM Q6HPO PRN PRN Reason: SORE THROAT Polyethylene Glycol (Miralax (For Daily Use) -) 17 gm PO DAILY [facility] Last Admin: 12/13/18 09:13 Dose: 17 gm Senna (Senna -) 1 tab PO HS [facility] Last Admin: 12/12/18 22:50 Dose: 1 tab - Objective Vital Signs: Vital Signs Temperature 97.4 F L 12/13/18 09:24 Pulse Rate 62 12/13/18 09:24 Respiratory Rate 18 12/13/18 09:24 Blood Pressure 112/41 L 12/13/18 09:24 O2 Sat by Pulse Oximetry (%) 96 12/12/18 21:00 Constitutional: Yes: Calm Eyes: Yes: Conjunctiva Clear HENT: Yes: Atraumatic Cardiovascular: Yes: S1, S2 Respiratory: Yes: On Nasal O2 Gastrointestinal: Yes: Soft, Abdomen, Obese Genitourinary: Yes: Rodriguez Present Musculoskeletal: Yes: WNL Edema: Yes Edema: LLE: 2+, RLE: 2+ Neurological: Yes: Oriented Psychiatric: Yes: Oriented Labs: CBC, BMP 12/13/18 05:30 12/13/18 05:30 INR, PTT INR 1.05 (0.83-1.09) 12/08/18 05:30 Problem List - Problems (1) Anemia Code(s): D64.9 - ANEMIA, UNSPECIFIED Qualifiers: Anemia type: unspecified type Qualified Code(s): D64.9 - Anemia, unspecified (2) Angina at rest Code(s): I20.8 - OTHER FORMS OF ANGINA [place] (3) CAD (coronary artery disease) Code(s): I25.10 - ATHSCL HEART DISEASE OF [place] CORONARY ARTERY W/O ANG PCTRS Qualifiers: Coronary Disease-Associated Artery/Lesion type: unspecified vessel or lesion type [place] vs. transplanted heart: [place] heart Associated angina: with unstable angina Qualified Code(s): I25.110 - Atherosclerotic heart disease of [place] coronary artery with unstable angina pectoris (4) Renal failure Code(s): N19 - UNSPECIFIED KIDNEY FAILURE Qualifiers: Renal failure chronicity: chronic Chronic kidney disease stage: unspecified stage Qualified Code(s): N18.9 - Chronic kidney disease, unspecified (5) CKD (chronic kidney disease) Code(s): N18.9 - CHRONIC KIDNEY DISEASE, UNSPECIFIED Assessment/Plan Current Medications Generic Name Dose Route Start Last Admin Trade Name Freq PRN Reason Stop Dose Admin Acetaminophen 650 mg 12/12/18 08:08 12/13/18 05:18 Tylenol - PO 650 mg Q6H PRN Administration Fever Or Pain Albuterol/Ipratropium 1 amp 12/09/18 08:00 12/13/18 08:17 Duoneb - NEB 1 amp RQID [facility] Administration Aspirin 81 mg 12/12/18 11:15 12/13/18 09:10 Asa - PO 81 mg DAILY [facility] Administration Atorvastatin Calcium 40 mg 12/05/18 22:00 12/12/18 22:50 Lipitor - PO 40 mg HS [facility] Administration Docusate Sodium 100 mg 12/11/18 14:30 12/13/18 09:10 Colace - PO 100 mg BID [facility] Administration Ferrous Sulfate 325 mg 12/07/18 10:00 12/13/18 09:10 Feosol - PO 325 mg BIDWM [facility] Administration Gabapentin 300 mg 12/05/18 22:00 12/13/18 05:18 Neurontin - PO 300 mg TID [facility] Administration Heparin Sodium (Porcine) 5,000 unit 12/13/18 08:00 12/13/18 09:10 Heparin - SQ 5,000 unit TID [facility] Administration Insulin Aspart 1 vial 12/06/18 22:00 12/13/18 11:39 Novolog Vial Sliding Scale - SQ 1 unit ACHS [facility] Administration Protocol Lidocaine/Aluminum/Magnesium/Simeth 5 ml 12/11/18 18:00 12/13/18 05:18 Magic Mouthwash *Sjr Formula* - MM Not Given Q6HPO [facility] Nitroglycerin 0.4 mg 12/05/18 20:09 Nitrostat - SL Q5M PRN FOR CHEST PAIN Pantoprazole Sodium 40 mg 12/12/18 22:00 12/13/18 09:10 Protonix - PO 40 mg BID [facility] Administration Phenol/Menthol 1 spray 12/12/18 11:03 Chloraseptic - MM Q6HPO PRN SORE THROAT Polyethylene Glycol 17 gm 12/06/18 10:00 12/13/18 09:13 Miralax (For Daily Use) - PO 17 gm DAILY [facility] Administration Senna 1 tab 12/11/18 22:00 12/12/18 22:50 Senna - PO 1 tab HS [facility] Administration Impression 1. CAROLYN 2. dyspnea 3. CAD 4. HTN 5. DM 6. CHF 7. hyperlipidemia 8. renal cyst 9. CKD 10. hx of urinary retention Plan - cont with lasix - renal function is improving - monitor lytes - sodium is improving - she remains volume overloaded - monitor bp - keep net negative - pt may have atn from hypotension Dr Hua
[2018-12-13 14:12] VITALS: BP 143/58; PULSE 69; TEMP 97.9
--- NOTE | 2018-12-13 15:00 | DS ---
Physical Exam: SUBJECTIVE: Patient seen and examined at bedside this morning. She endorses improvement of her breathing, saturating well on 2L oxygen home dose. Patient denies subjective fevers, chills, shortness of breath, chest pain, palpitations , abdominal pain, nausea, vomiting. OBJECTIVE: Vital Signs Period Temp Pulse Resp BP Sys/Emerson Pulse Ox Last 24 Hr 97.4 F-98.2 F 60-98 16-20 112-148/41-78 96 PHYSICAL EXAM GENERAL: The patient is awake, alert, and fully oriented, in mild distress. HEAD: Normocephalic, atraumatic. EYES: PERRL, extraocular movements intact, sclera anicteric, conjunctiva clear. ENT: Oropharynx erythematous, with exudates noted. Moist mucous membranes. NECK: Trachea midline, full range of motion. Supple without lymphadenopathy. LUNGS: Good inspiratory effort with improving air entry bilaterally. No accessory muscle use. HEART: Regular rate and rhythm, S1, S2 auscultated with holosystolic murmur at right upper sternal border. ABDOMEN: Soft, distended, non tender to light or deep palpation x4 quadrants. No rebound tenderness, no guarding. Normoactive bowel sounds x4 quadrants. No hepatosplenomegaly palpated or percussed. EXTREMITIES: 2+ radial, 1+ dorsalis pedis pulses bilaterally. warm, well perfused. 2+ lower extremity edema, with thickened skin, and chronic venous stasis changes bilaterally. Left lower extremity tender to palpation at left lateral thigh. NEUROLOGICAL: Cranial nerves II through XII grossly intact. Normal speech. No gross focal deficits. PSYCH: Normal mood, normal affect upon my encounter. LABS Laboratory Results - last 24 hr 12/12/18 12/12/18 12/13/18 17:25 21:38 05:16 WBC RBC Hgb Hct MCV MCH MCHC RDW Plt Count MPV Sodium Potassium Chloride Carbon Dioxide Anion Gap BUN Creatinine Creat Clearance w eGFR POC Glucometer 145 152 125 Random Glucose Calcium Total Bilirubin AST ALT Alkaline Phosphatase Total Protein Albumin 12/13/18 12/13/18 12/13/18 05:30 05:30 11:37 WBC 7.4 RBC 3.52 L Hgb 9.2 L Hct 28.5 L MCV 81.1 MCH 26.3 MCHC 32.4 RDW 18.4 H Plt Count 253 MPV 9.2 Sodium 137 Potassium 4.0 Chloride 102 Carbon Dioxide 27 Anion Gap 8 BUN 36 H Creatinine 1.9 H Creat Clearance w eGFR 25.12 POC Glucometer 156 Random Glucose 129 H Calcium 8.2 L Total Bilirubin 0.3 AST 14 L ALT 19 Alkaline Phosphatase 129 H Total Protein 6.0 L Albumin 2.9 L HOSPITAL COURSE: Date of Admission:12/05/18 Date of Discharge: 12/13/18 Patient is an 83 year old female with history of hypertension, hyperlipidemia, diabetes mellitus, coronary artery disease and myocardial infarction s/p coronary stent (on Apirin, Brilinta), HFpEF, chronic kidney disease presents with complaint of chest tightness ongoing for past three days. EKG upon admission showed normal sinus rhythm with first degree AV block. Unchanged from prior study. Troponin 0.02 x2. Of note, patient's hemoglobin upon admission was 6.6. Cardiology consult discussed chest pain likely secondary to symptomatic anemia. Patient received 2 units PRBC with appropriate hemoglobin response, and resolution of chest pain. Aspirin and Brilinta were held; cardiology consult discussed that Brilinta could be discontinued as her cardiac stents were greater than three years ago. Patient was evaluated by gastroenterology. Endoscopy was initially deferred due to leukocytosis, and patient's desaturation. Patient was evaluated by pulmonology; CT scan of the chest showed apical scarring, and bilateral atelectasis at the bases. Pulmonology recommended repeat CT scan in 6 weeks. Patient responded well to inhaled bronchodilators, and diuresis. After discussion with gastroenterology and with patient; the risks of the endoscopy were considered greater than possible benefits and as the patient's hemoglobin remained stable after reintroduction of Aspirin, the endoscopy was deferred. Patient developed CAROLYN which responded to Lasix dieresis with nephrology recommendations. Patient complained of left lower extremity pain. Duplex US was negative for DVT at admission, as well as on day of discharge. Pain significantly palliated with Flexeril. Patient was discharged to [facility] Her Aspirin was reinstated; Brilinta held. Her Insulin regimen, Januvia, and Glimepiride were discontinued in place of insulin sliding scale due to her low blood glucose during hospitalization. Ramipril, Norvasc were discontinued due to CAROLYN and hypotension. Patient discharged to follow up with primary care physician (referral for [facility] provided), gastroenterology, pulmonology, and nephrology. Minutes to complete discharge: 45 Discharge Summary Reason For Visit: CORONARY ARTERY DISEASE,ANGINA AT REST Current Active Problems Abdominal distension (Acute) Acute on chronic respiratory failure with hypoxemia (Acute) Acute renal failure superimposed on chronic kidney disease (Acute) Anemia (Acute) Angina at rest (Acute) CAD (coronary artery disease) (Acute) Cellulitis of toe of right foot (Acute) Chest pain (Acute) GI bleed (Acute) Renal failure (Acute) Condition: Stable - Instructions Diet, Activity, Other Instructions: You were admitted to the hospital for chest pain. You were evaluated by the automation technician who discussed your chest pain was likely secondary to the anemia (low blood count); which resolved with blood transfusion. You were evaluated by the core layer machine operator. After discussion, the bleeding was likely secondary to the terminal gauger supervisor Aspirin and Brilinta use. There are significant risks of pursuing the endoscopy to confirm the bleeding (aspiration , anesthetic concerns given your poor heart function), and as you are no longer bleeding, we will not pursue an endoscopy at this time. You will discuss further with your core layer machine operator. You were evaluated by infectious disease physician and completed antibiotics course for your toenail infection. You were evaluated by geospatial extractor analysis for shortness of breath, and will require follow up CT scan of your chest within 6-8 weeks of hospital discharge. Your kidney values were elevated during hospitalization. You were evaluated by the linux system engineer, and treated with diuretic medication to reduce the excess fluid buildup within your body. You are being discharged to [facility]. We have made some changes to your medications: Continue taking Aspirin 81mg daily. You may take Flexeril 5 mg twice a day as needed for muscle pain. Discuss this new medication with your primary care physician. This medication may make you drowsy, or dizzy. We have stopped your Brilinta. DO NOT take this medication anymore as it may increase risk of bleeding. We have stopped your Ramipril and Norvasc. Discuss reinstating these medications with your primary care physician. We have stopped your Insulin Lantus, and Insulin Levemir. We have also stopped your Januvia, and Glimepiride as your blood sugars were low during hospitalization. Discuss reinstating these medications with your primary care physician based on your blood glucose readings. Insulin sliding scale per [facility] protocol. Follow up with your primary care physician within two- three days of discharge. A referral for [facility] clinic has been provided. You will need blood work (complete blood count) to make sure that you are not bleeding. Discuss this further with your primary care physician at your appointment. Follow up with core layer machine operator (Dr. Mata) within one week of discharge. A referral has been provided. Follow up with geospatial extractor analysis (Dr. Croft) within one week of discharge. You will require follow up CT scan of your chest within 6-8 weeks of hospital discharge. Follow up with linux system engineer (Dr. Hua) within one week of discharge. Return to the nearest Emergency Department if you experience any worsening symptoms, subjective fevers, chills, falls, loss of consciousness, shortness of breath, chest pain, palpitations, abdominal pain, nausea, vomiting, blood within the urine, bleeding within bowel movements, or black, tarry bowel movements. Referrals: [facility] [place] [facility] [Provider Group] - 12/17/18 Mike Croft MD [Staff Physician] - 1 Week Stephen Mata MD [Staff Physician] - 1 Week Addi Hua MD [Staff Physician] - 1 Week Disposition: LONG TERM FACILITY - Home Medications Comprehensive Discharge Medication List: Ambulatory Orders Acetaminophen [Tylenol] 650 mg PO BID PRN 08/07/17 Ascorbic Acid [Vitamin C -] 500 mg PO DAILY 08/07/17 Aspirin [ASA -] 81 mg PO DAILY 08/07/17 Atorvastatin Ca [Lipitor] 40 mg PO HS 08/07/17 Bacitracin - [Bacitracin Topical Ointment -] 1 applic TP PRN PRN 08/07/17 Gabapentin 300 mg PO BID 08/07/17 Loratadine [Claritin] 10 mg PO DAILY 08/07/17 Multivitamin [One Daily] 1 each PO DAILY 08/07/17 Pantoprazole Sodium 40 mg PO BID 08/07/17 Furosemide [Lasix -] 40 mg PO BID #14 tablet MDD 2 08/14/17 Tamsulosin HCl [Flomax -] 0.4 mg PO DAILY@0830 #30 cap.er.24h MDD 1 08/14/17 Allopurinol [Zyloprim -] 100 mg PO DAILY 12/06/18 Cyclobenzaprine HCl [Flexeril -] 5 mg PO BID #14 tablet 12/13/18 Docusate Sodium [Colace -] 100 mg PO BID capsule 12/13/18 Ferrous Sulfate [Feosol] 325 mg PO BIDWM ud 12/13/18 Insulin Sliding Scale [Novolog Vial Sliding Scale -] 1 vial SQ ACHS units 12/13 Sennosides [Senna -] 1 tab PO HS tablet 12/13/18 This patient is new to me today: No Emergency Visit: Yes ED Registration Date: 12/05/18 Care time: The patient presented to the Emergency Department on the above date and was hospitalized for further evaluation of their emergent condition. Critical Care patient: No - Discharge Referral Referred to [facility] No
[2018-12-14] MEDS ORDERED: FUROSEMIDE 40 MG/4 ML INJECTABLE VIAL IVPUSH SCH (10:00)
== END 2018-12-13 18:45 | DRG 377 ==
LOC: JER 14:59 → JERBED 18:44 → J4S 22:55
PROVIDERS: ADMIT Internal Medicine; ATTEND Internal Medicine
PROC: 30233N1 Transfusion of Nonautologous Red Blood Cells into Peripheral Vein, Percutaneous Approach (ICD-10-PCS; principal; 2018-12-06)
DX: K92.2 Gastrointestinal hemorrhage, unspecified (principal); J96.21 Acute and chronic respiratory failure with hypoxia; I25.110 Atherosclerotic heart disease of native coronary artery with unstable angina pectoris; I13.0 Hypertensive heart and chronic kidney disease with heart failure and stage 1 through stage 4 chronic kidney disease, or unspecified chronic kidney disease; I50.32 Chronic diastolic (congestive) heart failure; D62 Acute posthemorrhagic anemia; N17.9 Acute kidney failure, unspecified; E11.22 Type 2 diabetes mellitus with diabetic chronic kidney disease; N18.3 Chronic kidney disease, stage 3 (moderate); I25.2 Old myocardial infarction; Z95.5 Presence of coronary angioplasty implant and graft; Z79.4 Long term (current) use of insulin; D64.9 Anemia, unspecified; K21.9 Gastro-esophageal reflux disease without esophagitis; J44.9 Chronic obstructive pulmonary disease, unspecified; I44.0 Atrioventricular block, first degree; E88.09 Other disorders of plasma-protein metabolism, not elsewhere classified; E66.9 Obesity, unspecified; Z68.37 Body mass index [BMI] 37.0-37.9, adult; H54.62 Unqualified visual loss, left eye, normal vision right eye; Z99.3 Dependence on wheelchair; Z86.718 Personal history of other venous thrombosis and embolism; M10.9 Gout, unspecified; Z90.710 Acquired absence of both cervix and uterus; E11.42 Type 2 diabetes mellitus with diabetic polyneuropathy; L97.519 Non-pressure chronic ulcer of other part of right foot with unspecified severity; Z53.09 Procedure and treatment not carried out because of other contraindication; N28.1 Cyst of kidney, acquired; J02.9 Acute pharyngitis, unspecified; I95.9 Hypotension, unspecified
CPT/HCPCS: 36415; 36430; 36600; 71045-TC-FY; 71250-TC; 74176-TC; 76775-TC; 76856-TC; 76882-TC-RT-FY; 80048; 80053; 81003; 82040; 82272; 82436; 82550; 82570; 82728; 82803; 82962; 83540; 83550; 83735; 83880; 84100; 84133; 84300; 84484; 85025; 85027; 85610; 86850; 86900; 86901; 86922; 87070; 87077; 87880; 93005; 93010; 93306-TC; 93970-TC; 94640; 97116-GP; 97161-GP; 99285-25; J1644; J7030; P9038; P9058

== ENCOUNTER 2019-01-22 22:29 | Inpatient (IN) | payer OTHER, BC | END 2019-01-24 15:10 | disposition home or self-care (01) | LOC: JER 22:29 → JERBED 01-23 01:31 → J5S 01-23 10:40 ==

== ENCOUNTER 2019-08-21 04:58 | Emergency (ER) | payer OTHER, BC ==
[2019-08-21 06:26] VITALS: BMI 32.5
[2019-08-21] MEDS ORDERED: ACETAMINOPHEN 500 MG TABLET (FP) PO ONE (07:35)
[2019-08-21] MEDS ORDERED: ACETAMINOPHEN 500 MG TABLET (FP) ONE (07:45)
--- NOTE | 2019-08-21 09:08 | PDOC ---
History of Present Illness - General Chief Complaint: Injury Stated Complaint: R ANKLE INJURY Time Seen by Provider: 08/21/19 05:03 - History of Present Illness Initial Comments: 08/21/19 09:06 83 years old presents from family member's house status post mechanical twisting of right leg. Patient's past medical history significant for COPD CAD status post cath non-STEMI status post stent CHF hyperlipidemia diabetes GERD anemia blind in the left eye normally only ambulates with wheelchair was at a family member's house last night they were unable to get the wheelchair up and down the stairs so patient with assistance was being helped down the stairs her shoe got caught and she twisted her right leg denies any head injury no fall only complaining of pain to her right leg. Pain is moderate persistent constant worse with movement no alleviating factors patient is significantly nonambulatory at baseline. Past History - Past Medical History Allergies/Adverse Reactions: Allergies Allergy/AdvReac Type Severity Reaction Status Date / Time No Known Drug Allergies Allergy Verified 01/22/19 23:06 TOMATO SAUCE ONLY Allergy Uncoded 01/22/19 23:06 Home Medications: Ambulatory Orders Acetaminophen [Tylenol] 650 mg PO BID PRN 08/07/17 Ascorbic Acid [Vitamin C -] 500 mg PO DAILY 08/07/17 Aspirin [ASA -] 81 mg PO DAILY 08/07/17 Atorvastatin Ca [Lipitor] 40 mg PO HS 08/07/17 Bacitracin - [Bacitracin Topical Ointment -] 1 applic TP PRN PRN 08/07/17 Gabapentin 300 mg PO BID 08/07/17 Loratadine [Claritin] 10 mg PO DAILY 08/07/17 Multivitamin [One Daily] 1 each PO DAILY 08/07/17 Pantoprazole Sodium 40 mg PO BID 08/07/17 Furosemide [Lasix -] 40 mg PO BID #14 tablet MDD 2 08/14/17 Tamsulosin HCl [Flomax -] 0.4 mg PO DAILY@0830 #30 cap.er.24h MDD 1 08/14/17 Allopurinol [Zyloprim -] 100 mg PO DAILY 12/06/18 Cyclobenzaprine HCl [Flexeril -] 5 mg PO BID #14 tablet 12/13/18 Docusate Sodium [Colace -] 100 mg PO BID capsule 12/13/18 Ferrous Sulfate [Feosol] 325 mg PO BIDWM ud 12/13/18 Insulin Sliding Scale [Novolog Vial Sliding Scale -] 1 vial SQ ACHS units 12/13 Sennosides [Senna -] 1 tab PO HS tablet 12/13/18 Anemia: Yes Asthma: No 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) Cardiac Disorders: Yes (CAD - cath, stent, NE, n-stemi) CVA: No COPD: Yes (home o2 2lnc) CHF: Yes Dementia: No Diabetes: Yes GI Disorders: Yes (gerd, diverticolosis, peptic ulcer disease) Disorders: No HTN: Yes Hypercholesterolemia: Yes Liver Disease: No Seizures: No Thyroid Disease: No - Surgical History Abdominal Surgery: Yes (Gallbladder removal) Appendectomy: No Cardiac Surgery: Yes (stents) Cholecystectomy: Yes Lung Surgery: No Neurologic Surgery: No Orthopedic Surgery: Yes (right hip ORIF 12/2013) - Immunization History Immunization Up to Date: No - Psycho Social/Smoking Cessation Hx Smoking Status: No Smoking History: Never smoked Have you smoked in the past 12 months: No Number of Cigarettes Smoked Daily: 0 Cigars Per Day: 0 Hx Alcohol Use: No Drug/Substance Use Hx: No Substance Use Type: None Hx Substance Use Treatment: No Review of Systems - Review of Systems Comments:: 08/21/19 09:06 ROS: A complete review of 10 out of 10 review of systems is taken and is negative apart from what is previously mentioned below and in the HPI. *Physical Exam - Vital Signs Last Vital Signs Temp Pulse Resp BP Pulse Ox 97.5 F L 72 18 137/63 100 08/21/19 05:10 08/21/19 05:10 08/21/19 05:10 08/21/19 05:10 08/21/19 05:10 - Physical Exam 08/21/19 09:06 Vitals: Triage Vital signs reviewed General Appearance: No acute distress, well nourished well developed, Head: Atraumatic, Cardiac: Regular rate and rhythym, Lungs: Clear to auscultation bilateral, good air movement bilaterally, Abdomen: Soft, non distended, normal bowel sounds, non tender to palpation Genitourinary: Rectal: Exam deferred Extremities: Full range of motion to all extremities, no cyanosis, clubbing, or edema Skin: Warm and dry, no rashes or lesions, no rash, no petechiae Neuro: Strength intact to all extremities, sensation intact to all extremities, Psych: Normal mood, normal affect ED Treatment Course - RADIOLOGY Radiology Studies Ordered: Category Date Time Status ANKLE & FOOT-RIGHT* [RAD] Stat Radiology 08/21/19 07:37 Taken HIP & PELVIS-RIGHT [RAD] Stat Radiology 08/21/19 07:37 Taken KNEE 3 POS-RIGHT [RAD] Stat Radiology 08/21/19 07:37 Taken - Medications Given in the ED: ED Medications Discontinued Medications Generic Name Dose Route Start Last Admin Trade Name Jas PRN Reason Stop Dose Admin Acetaminophen 1,000 mg 08/21/19 07:35 08/21/19 07:55 Tylenol - PO 08/21/19 07:36 1,000 mg ONCE ONE Administration Medical Decision Making - Medical Decision Making 08/21/19 09:07 Mechanical trip with injury to right lower extremity no obvious deformity neurovascularly intact We will x-ray pain meds observe and reassess. Reevaluation patient feels better after Tylenol x-rays demonstrate no acute fracture dislocation Findings, the need for follow-up and strict return instructions discussed with patient. Discharge - Discharge Information Problems reviewed: Yes Clinical Impression/Diagnosis: Leg pain Qualifiers: Laterality: right Qualified Code(s): M79.604 - Pain in right leg Disposition: HOME - Admission No - Follow up/Referral Referrals: Elijah Sanders MD [Primary Care Provider] - Darell Harrington DO [Staff Physician] - - Patient Discharge Instructions Patient Printed Discharge Instructions: DI for Leg Pain Additional Instructions: Ice sore affected areas 20 minutes on 20 minutes off. Take [id number] Tylenol as directed on package. Follow-up with your doctor this week. Return to ED for any concerns. Follow up with Dr. Harrington ortopedics if no improvement in symptoms - Post Discharge Activity
[2019-08-21 11:17] VITALS: BP 137/84; PULSE 81; TEMP 98.1
== END 2019-08-21 11:05 ==
LOC: JER 04:58
DX: S89.81XA Other specified injuries of right lower leg, initial encounter (principal); M79.661 Pain in right lower leg; X50.1XXA Overexertion from prolonged static or awkward postures, initial encounter; Y93.89 Activity, other specified; Y92.018 Other place in single-family (private) house as the place of occurrence of the external cause; Y99.8 Other external cause status; I25.10 Atherosclerotic heart disease of native coronary artery without angina pectoris; I11.0 Hypertensive heart disease with heart failure; Z95.5 Presence of coronary angioplasty implant and graft; I50.9 Heart failure, unspecified; I25.2 Old myocardial infarction; E78.00 Pure hypercholesterolemia, unspecified; E11.9 Type 2 diabetes mellitus without complications; Z79.4 Long term (current) use of insulin; J44.9 Chronic obstructive pulmonary disease, unspecified; Z99.81 Dependence on supplemental oxygen; Z99.3 Dependence on wheelchair; Z90.49 Acquired absence of other specified parts of digestive tract; Z91.018 Allergy to other foods
CPT/HCPCS: 73523-TC-FY; 73562-TC-RT-FY; 73610-TC-RT-FY; 73630-TC-RT-FY; 99283-25

== ENCOUNTER 2020-03-09 18:21 | Emergency (ER) | payer OTHER, BC ==
[2020-03-09 18:34] VITALS: PULSE 66; TEMP 98.5; BMI 32.9
--- NOTE | 2020-03-09 19:12 | PDOC ---
History of Present Illness - General Chief Complaint: Edema Stated Complaint: LEG SWELLING Time Seen by Provider: 03/09/20 18:40 - History of Present Illness Initial Comments: 85 yo female with PMH of DVT, CHF, CKD, DM presents with left LE swelling. The swelling is worse on the left than right. She has redness and pain in the distal extremities. She denies any recent travel or surgery. She denies cp, diaphoresis, fevers, chills, headaches. She is wheelchair bound and on 2L O2 at home. She follows with Dr. Bailey for cardiology. Past History - Medical History Allergies/Adverse Reactions: Allergies Allergy/AdvReac Type Severity Reaction Status Date / Time No Known Drug Allergies Allergy Verified 01/22/19 23:06 TOMATO SAUCE ONLY Allergy Uncoded 01/22/19 23:06 Home Medications: Ambulatory Orders Acetaminophen [Tylenol] 650 mg PO BID PRN 08/07/17 Ascorbic Acid [Vitamin C -] 500 mg PO DAILY 08/07/17 Aspirin [ASA -] 81 mg PO DAILY 08/07/17 Atorvastatin Ca [Lipitor] 40 mg PO HS 08/07/17 Bacitracin - [Bacitracin Topical Ointment -] 1 applic TP PRN PRN 08/07/17 Gabapentin 300 mg PO BID 08/07/17 Loratadine [Claritin] 10 mg PO DAILY 08/07/17 Multivitamin [One Daily] 1 each PO DAILY 08/07/17 Pantoprazole Sodium 40 mg PO BID 08/07/17 Furosemide [Lasix -] 40 mg PO BID #14 tablet MDD 2 08/14/17 Tamsulosin HCl [Flomax -] 0.4 mg PO DAILY@0830 #30 cap.er.24h MDD 1 08/14/17 Allopurinol [Zyloprim -] 100 mg PO DAILY 12/06/18 Cyclobenzaprine HCl [Flexeril -] 5 mg PO BID #14 tablet 12/13/18 Docusate Sodium [Colace -] 100 mg PO BID capsule 12/13/18 Ferrous Sulfate [Feosol] 325 mg PO BIDWM ud 12/13/18 Insulin Sliding Scale [Novolog Vial Sliding Scale -] 1 vial SQ ACHS units 12/13/18 Sennosides [Senna -] 1 tab PO HS tablet 12/13/18 Cephalexin [Keflex] 500 mg PO BID 7 Days #14 capsule 03/09/20 Anemia: Yes Asthma: No 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) Cardiac Disorders: Yes (CAD - cath, stent, [place], n-stemi) CVA: No COPD: Yes (home o2 2lnc) CHF: Yes Dementia: No Diabetes: Yes GI Disorders: Yes (gerd, diverticolosis, peptic ulcer disease) Disorders: No HTN: Yes Hypercholesterolemia: Yes Liver Disease: No Seizures: No Thyroid Disease: No - Surgical History Abdominal Surgery: Yes (Gallbladder removal) Appendectomy: No Cardiac Surgery: Yes (stents) Cholecystectomy: Yes Lung Surgery: No Neurologic Surgery: No Orthopedic Surgery: Yes (right hip ORIF 12/2013) - Immunization History Immunization Up to Date: No - Psycho-Social/Smoking History Smoking Status: No Smoking History: Never smoked Have you smoked in the past 12 months: No Number of Cigarettes Smoked Daily: 0 Cigars Per Day: 0 Information on smoking cessation initiated: No - Substance Abuse Hx (Audit-C & DAST Scrn) How often the patient has a drink containing alcohol: Never Score: In Men: 4 or > Positive; In Women: 3 or > Positive: 0 Screen Result (Pos requires Nsg. Audit-10AR): Negative In the last yr the pt used illegal drug/Rx for NonMed reason: No Score: Yes response is considered Positive: 0 Screen Result (Positive result requires Nsg. DAST-10): Negative Review of Systems - Review of Systems Constitutional: No: Chills, Diaphoresis, Fever HEENTM: No: Recent change in vision, Double Vision Respiratory: Yes: Orthopnea, Shortness of Breath. No: Cough Cardiac (ROS): Yes: Edema (b/l LE edema worse on he left). No: Chest Pain, Syncope, Chest Tightness ABD/GI: No: Diarrhea, Nausea, Vomiting : No: Dysuria, Discharge Musculoskeletal: No: Back Pain, Joint Pain Integumentary: Yes: Other (reddness from toes to knees) Neurological: No: Headache, Numbness, Dizziness Psychiatric: No: Anxiety, Depression, Frequent Crying Endocrine: No: Intolerance to Cold, Intolerance to Heat *Physical Exam - Vital Signs Last Vital Signs Temp Pulse Resp BP Pulse Ox 98.5 F 66 20 148/53 L 100 03/09/20 18:29 03/09/20 18:29 03/09/20 18:29 03/09/20 18:29 03/09/20 18:29 - Physical Exam General Appearance: Yes: Appropriately Dressed, Apparent Distress HEENT: positive: EOMI, Normal Voice Respiratory/Chest: positive: Normal Breath Sounds, Respiratory Distress Cardiovascular: positive: Regular Rhythm, Regular Rate, S1, S2, Edema (b/l LE edema worse on the left) Gastrointestinal/Abdominal: positive: Flat, Soft. negative: Tender Extremity: positive: Pedal Edema, Swelling, Calf Tenderness (left calf), Erythema, Other (b/l LE swelling up to the knee. ) Integumentary: positive: Other (b/l LE reddness and swelling up to the knees) Neurologic: positive: Fully Oriented, Alert, Normal Response ED Treatment Course - LABORATORY CBC & Chemistry Diagram: 03/09/20 20:00 03/09/20 20:00 Medical Decision Making - Medical Decision Making 85 yo female with PMH of DVT, CHF, CKD, MA, DM presents with b/l LE swelling that is worse on the left during the past 3 days. She is being worked up for DVT and CHF. CBC, CMP, Coags were normal. CXR was benign and unchanged from previous imaging. Duplex US did not find out any DVT. She is being discharged with 500mg Kephlex BID to treat her chronic cellulitus. The LE swelling is most likely due to cellulitus and chronic venous insufficiency. We spoke to her [facility] and informed them. We put in paperwork to have her discharged. 03/09/20 21:43 Discharge - Discharge Information Problems reviewed: Yes Clinical Impression/Diagnosis: Bilateral lower leg cellulitis, Chronic venous insufficiency of lower extremity Condition: Stable Disposition: [facility] - Admission No - Additional Discharge Information Prescriptions: Cephalexin [Keflex] 500 mg PO BID 7 Days #14 capsule - Follow up/Referral Referrals: Elijah Sanders MD [Primary Care Provider] - - Patient Discharge Instructions Additional Instructions: You were evaluated today for swelling of the legs. We performed an ultrasound to rule out Deep Vein Thrombosis. We believe the redness and swelling is a c ombination of venous insufficiency with an overlying cellulitus. Follow up with your PCP for monitoring and workup of your condition. Return to ED if symptoms worsens. - Post Discharge Activity
[2020-03-09 20:07] LABS: HEMOGLOBIN 12.4 GM/dL (10.7-15.3); MCH 33.4 pg (25.7-33.7); MCHC 33.4 g/dl (32.0-36.0); MEAN CELL VOLUME 100.1 fl (80-96); MEAN PLT VOLUME 9.7 fl (7.5-11.1); PLATELET COUNT 197 K/MM3 (134-434); RDW 15.1 % (11.6-15.6); WHITE BLOOD COUNT 8.9 K/mm3 (4.0-10.0)
[2020-03-09 20:47] LABS: ALBUMIN 3.2 g/dl (3.4-5.0); ALK PHOS 130 U/L (45-117); ANION GAP 10 MMOL/L (8-16); BILIRUBIN,TOTAL 0.4 mg/dL (0.2-1); BLOOD UREA NITROGEN 30.3 mg/dL (7-18); CHLORIDE 104 mmol/L (98-107); CO2 27 mmol/L (21-32); CREATININE 1.3 mg/dL (0.55-1.3); GLUCOSE,RANDOM 153 mg/dL (74-106); POTASSIUM 3.8 mmol/L (3.5-5.1); SGOT/AST 16 U/L (15-37); SGPT/ALT 19 U/L (13-61); SODIUM 141 mmol/L (136-145); TOT PROT 6.4 g/dl (6.4-8.2)
--- NOTE | 2020-03-09 21:01 | PDOC ---
Documentation entered by Yazmin Cordero SCRIBE, acting as scribe for Berenice Nguyen MD. Berenice Nguyen MD: This documentation has been prepared by the jackibe, Yazmin Cordero SCRIBE, under my direction and personally reviewed by me in its entirety. I confirm that the documentation accurately reflects all work, treatment, procedures, and medical decision making performed by me. Attending Attestation - Resident Resident Name: Ana Maria Hylton - ED Attending Attestation I have performed the following: I have examined & evaluated the patient, The case was reviewed & discussed with the resident, I agree w/resident's findings & plan, Exceptions are as noted - HPI HPI: 03/09/20 18:44 Patient is a 85 year old female with a significant past medical history of COPD, coronary artery disease status post and STEMI, status post stent, CHF, hyperlipidemia, diabetes, GERD, anemia and blindness in the left eye, who presents to the ED with edema to the left lower extremity since earlier today along with some mild SOB. Patient is on wheelchair due to her inability to ambulate and uses 2L of oxygen at home. Patient denies: headache, fever, chills, chest pain, diaphoresis, or any recent travel. Allergies: NKDA, Tomato sauce Retort Firer: Dr. Bailey - Physicial Exam PE: 03/09/20 20:36 alert and conversant 85 yo female p/w 3 days of increasing swelling to left LE head ncat neck supple lungs no wheezing cvs [id number] abdomen protuberant , nontender skin warm and dry extremities chronic venous stasis, bilateral ++pitting edema, left calf swollen ,+erythema neuro axox3, nonambulatory at baseline but can transfer with help 03/09/20 21:01 - Medical Decision Making 03/09/20 21:42 cxr no acute Pulmonary disease Duplex Dopplers did not find DVTs in either leg Troponin is negative BNP is within normal limits Glucose equal to 158 No leukocytosis or significant anemia ekg junctional rhythm at 66 bpm I called her facility and informed them she is being discharged Discharge - Discharge Information Problems reviewed: Yes Clinical Impression/Diagnosis: Bilateral lower leg cellulitis, Chronic venous insufficiency of lower extremity Condition: Stable [facility]position[facility] - Additional Discharge Information Prescriptions: Cephalexin [Keflex] 500 mg PO BID 7 Days #14 capsule - Follow up/Referral Referrals: Elijah Sanders MD [Primary Care Provider] - - Patient Discharge Instructions Additional Instructions: You were evaluated today for swelling of the legs. We performed an ultrasound to rule out Deep Vein Thrombosis. We believe the redness and swelling is a combination of venous insufficiency with an overlying cellulitus. Follow up with your PCP for monitoring and workup of your condition. Return to ED if symptoms worsens. - Post Discharge Activity
[2020-03-09 21:13] LABS: INR 0.96 (0.83-1.09); PROTHROMBIN TIME (PATIENT) 11.3 SEC (9.7-13.0)
[2020-03-09 21:16] LABS: ACTIVATED PTT 30.2 SECONDS (25.2-36.5)
[2020-03-09 22:22] VITALS: BP 163/53
--- NOTE | 2020-03-11 14:56 | EKG ---
Test Reason : Blood Pressure : / mmHG Vent. Rate : 066 BPM Atrial Rate : 340 BPM P-R Int : 000 ms QRS Dur : 076 ms QT Int : 402 ms P-R-T Axes : 000 069 074 degrees QTc Int : 421 ms ACCELERATED JUNCTIONAL RHYTHM ABNORMAL ECG WHEN COMPARED WITH ECG OF 23-JAN-2019 02:23, JUNCTIONAL RHYTHM HAS REPLACED SINUS RHYTHM Confirmed by EUN NOEL MD ([id number]) on 03/11/2020 2:56:33 PM Referred By: Confirmed By:EUN NOEL MD
== END 2020-03-09 22:34 ==
LOC: JER 18:21
DX: L03.115 Cellulitis of right lower limb (principal); L03.116 Cellulitis of left lower limb; I87.2 Venous insufficiency (chronic) (peripheral)
CPT/HCPCS: 36415; 71045-TC-FY; 80053; 82550; 83880; 84484; 85027; 85610; 85730; 93005; 93010; 93970-TC; 99284-25

== ENCOUNTER 2020-05-17 19:07 | Inpatient (IN) | payer OTHER, BC ==
--- NOTE | 2020-05-17 19:46 | PDOC ---
History of Present Illness - General Chief Complaint: Pain, Acute Stated Complaint: LFT HIP PAIN Time Seen by Provider: 05/17/20 19:46 - History of Present Illness Initial Comments: 05/17/20 21:05 85yo F w/ PMHx cellulitis of the LEs presents w/ atraumatic L hip and knee pain since this afternoon. She reports coming back from a wound care appointment and, when trying to get into bed w/ the help of an aide at her facility ([facility]), felt a sharp pain in L groin. She denies falls or prior injury to the L hip, pelvis, groin, back, and leg. The focus of the pain is in the L adductor region and radiates down to the feet with any manipulation. It is worse with any movement and somewhat relieved by rest. Past History - Medical History Allergies/Adverse Reactions: Allergies Allergy/AdvReac Type Severity Reaction Status Date / Time No Known Drug Allergies Allergy Verified 05/17/20 19:32 TOMATO SAUCE ONLY Allergy Uncoded 05/17/20 19:32 Home Medications: Ambulatory Orders Acetaminophen [Tylenol] 650 mg PO BID PRN 08/07/17 Ascorbic Acid [Vitamin C -] 500 mg PO DAILY 08/07/17 Atorvastatin Ca [Lipitor] 40 mg PO HS 08/07/17 Bacitracin - [Bacitracin Topical Ointment -] 1 applic TP PRN PRN 08/07/17 Gabapentin 300 mg PO BID 08/07/17 Loratadine [Claritin] 10 mg PO DAILY 08/07/17 Multivitamin [One Daily] 1 each PO DAILY 08/07/17 Pantoprazole Sodium 40 mg PO BID 08/07/17 Furosemide [Lasix -] 40 mg PO BID #14 tablet MDD 2 08/14/17 Tamsulosin HCl [Flomax -] 0.4 mg PO DAILY@0830 #30 cap.er.24h MDD 1 08/14/17 Docusate Sodium [Colace -] 100 mg PO BID capsule 12/13/18 Insulin Sliding Scale [Novolog Vial Sliding Scale -] 1 vial SQ ACHS units 12/13/18 Alendronate Sodium [Binosto] 70 mg PO WEEKLY 05/17/20 Aspirin [ASA -] 1 tab PO DAILY 05/17/20 Brinzolamide/Brimonidine Tart [Simbrinza 1%-0.2% Eye Drops] 1 drop OS DAILY 05/17/20 Erythromycin 0.5% Eye Ointment [Erythromycin 0.5% Eye Ointment -] 1 applic OS DAILY 05/17/20 Isosorbide Mononitrate [Imdur -] 30 mg PO DAILY 05/17/20 Metformin HCl [Glucophage] 500 mg PO BID 05/17/20 Metolazone 2.5 mg PO DAILY 05/17/20 Tizanidine HCl 2 mg PO BID 05/17/20 Valacyclovir HCl [Valacyclovir] 1,000 mg PO BID 05/17/20 Anemia: Yes Asthma: No 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) Cardiac Disorders: Yes (CAD - cath, stent, [place], n-stemi) CVA: No COPD: Yes (home o2 2lnc) CHF: Yes Dementia: No Diabetes: Yes GI Disorders: Yes (gerd, diverticolosis, peptic ulcer disease) Disorders: No HTN: Yes Hypercholesterolemia: Yes Liver Disease: No Seizures: No Thyroid Disease: No - Surgical History Abdominal Surgery: Yes (Gallbladder removal) Appendectomy: No Cardiac Surgery: Yes (stents) Cholecystectomy: Yes Lung Surgery: No Neurologic Surgery: No Orthopedic Surgery: Yes (right hip ORIF 12/2013) - Immunization History Immunization Up to Date: No - Psycho-Social/Smoking History Smoking Status: No Smoking History: Never smoked Have you smoked in the past 12 months: No Number of Cigarettes Smoked Daily: 0 Cigars Per Day: 0 Information on smoking cessation initiated: No - Substance Abuse Hx (Audit-C & DAST Scrn) How often the patient has a drink containing alcohol: Never Score: In Men: 4 or > Positive; In Women: 3 or > Positive: 0 Screen Result (Pos requires Nsg. Audit-10AR): Negative In the last yr the pt used illegal drug/Rx for NonMed reason: No Score: Yes response is considered Positive: 0 Screen Result (Positive result requires Nsg. DAST-10): Negative Review of Systems - Review of Systems Able to Perform ROS?: Yes Is the patient limited Wolof proficient: No Constitutional: No: Chills, Weakness HEENTM: No: Blurred Vision, Recent change in vision, Double Vision Respiratory: No: Symptoms reported, Cough Cardiac (ROS): No: Symptoms Reported, Chest Pain ABD/GI: No: Symptoms Reported : No: Burning, Dysuria, Discharge Musculoskeletal: No: Back Pain, Joint Swelling, Muscle Pain Integumentary: Yes: Erythema, Other (chronic cellulitis) Neurological: No: Headache, Numbness, Paresthesia Psychiatric: No: Change in Appetite Endocrine: No: Symptoms Reported Hematologic/Lymphatic: No: Symptoms Reported All Other Systems: Reviewed and Negative *Physical Exam - Vital Signs Last Vital Signs Temp Pulse Resp BP Pulse Ox 97.9 F 81 16 110/52 L 96 05/17/20 19:29 05/17/20 19:29 05/17/20 19:29 05/17/20 19:05/17/20 19:29 - Physical Exam General Appearance: Yes: Nourished, Appropriately Dressed, Apparent Distress, Disheveled, Mild Distress HEENT: positive: EOMI, Normal Voice Neck: positive: Trachea midline, Supple. negative: Tender, Tender lateral, Tender midline Respiratory/Chest: positive: Lungs Clear, Normal Breath Sounds. negative: Chest Tender Cardiovascular: positive: Regular Rhythm, Regular Rate Gastrointestinal/Abdominal: positive: Normal Bowel Sounds, Soft Musculoskeletal: positive: Normal Inspection. negative: CVA Tenderness Extremity: positive: Normal Capillary Refill, Pedal Edema, Swelling, Erythema (b/l LEs ), Inflammation (b/l LEs). negative: Normal Inspection (cellulitis of b/l LEs), Normal Range of Motion (decreased ROM in LEs ) Integumentary: positive: Normal Color, Warm, Swelling (b/l LEs ) ED Treatment Course - LABORATORY CBC & Chemistry Diagram: 05/26/20 07:32 05/26/20 07:32 Medical Decision Making - Medical Decision Making 05/17/20 23:22 85yo F w/ PMHx chronic cellulitis presents w/ intractable pain of the left groin. skin feels hot, temp is 100.3, slightly elevated WBC count. will treat for infection w/ ceftriaxone + vanc and give IV tylenol. 05/17/20 23:24 intractable Discharge - Discharge Information Problems reviewed: Yes Clinical Impression/Diagnosis: Intractable pain Cellulitis Qualifiers: Site of cellulitis: extremity Site of cellulitis of extremity: lower extremity Laterality: left Qualified Code(s): L03.116 - Cellulitis of left lower limb Condition: Fair - Admission Yes - Follow up/Referral - Patient Discharge Instructions - Post Discharge Activity
[2020-05-17] MEDS ORDERED: VANCOMYCIN 1 GM in D5W (PRE-DOCKED) 1,000 MG/250 ML IVPB ONE (20:29)
[2020-05-17] MEDS ORDERED: CEFTRIAXONE 2,000 MG in DEXTROSE 5%-WATER - 50 ML IVPB ONE (20:38)
[2020-05-17] MEDS ORDERED: morphine CARPU-JECT 2 MG/1 ML DISP.SYRIN IVPUSH ONE (20:40)
[2020-05-17] MEDS ORDERED: VANCOMYCIN 1 GRAM (PRE-DOCKED) 1,000 MG/250 ML BAG IVPB ONE (20:40)
--- OUTSIDE RECORDS SUMMARY | 2020-05-17 21:00 | XMS ---
:1935 Author Organization [facility] Care Team Providers Name Role Phone Skyler Sosa MD Unavailable Unavailable Iván Sosa MD Unavailable Unavailable Iván Sosa MD Unavailable Unavailable Iván Sosa MD Unavailable Unavailable Iván Sosa MD Unavailable Unavailable Iván Sosa MD Unavailable Unavailable Iván Sosa MD Unavailable Unavailable Iván Sosa MD Unavailable Unavailable Iván Sosa MD Unavailable Unavailable Iván Sosa MD Unavailable Unavailable IanIván merino MD Unavailable Unavailable IanIván merino MD Unavailable Unavailable IanIván merino MD Unavailable Unavailable IanIván merino MD Unavailable Unavailable IanIván merino MD Unavailable Unavailable IanIván merino MD Unavailable Unavailable IanIván merino MD Unavailable Unavailable Iván Sosa MD Unavailable Unavailable IanIván merino MD Unavailable Unavailable IanIván merino MD Unavailable Unavailable Iván Sosa MD Unavailable Unavailable Iván Sosa MD Unavailable Unavailable Re-disclosure Warning The records that you are about to access may contain information from federally- assisted alcohol or drug abuse programs. If such information is present, then the following federally mandated warning applies: This information has been disclosed to you from records protected by federal confidentiality rules (42 CFR part 2). The federal rules prohibit you from making any further disclosure of this information unless further disclosure is expressly permitted by the written consent of the person to whom it pertains or as otherwise permitted by 42 CFR part 2. A general authorization for the release of medical or other information is NOT sufficient for this purpose. The Federal rules restrict any use of the information to criminally investigate or prosecute any alcohol or drug abuse patient.The records that you are about to access may contain highly sensitive health information, the redisclosure of which is protected by Article 27-F of the [place] Public Health law. If you continue you may haveaccess to information: Regarding HIV / AIDS; Provided by facilities licensed or operated by the [place] Office of Mental Health; or Provided by the [place] Office for People With Developmental Disabilities. If such information is present, then the following [place] mandated warning applies: This information has been disclosed to you from confidential records which are protected by state law. State law prohibits you from making any further disclosure of this information without the specific written consent of the person to whom it pertains, or as otherwise permitted by law. Any unauthorized further disclosure in violation of state law may result in a fine or group home sentence or both. A general authorization for the release of medical or other information is NOT sufficient authorization for further disclosure. Allergies and Adverse Reactions Type Description Substance Reaction Status Data Source(s ) Miscellaneous allergy tomato sauce tomato sauce [facility] (The [facility] Anglican Herlinda theran Taoism) Encounters Encounter Providers Location Date Indications Data Source(s ) Inpatient Attender: 2 South-2 North 12/13/2018 SIGMACARE (The Skyler Sosa MD 03:00:00 PM [place] of EDT - the [facility] l 12/30/[address] [facility]) 12:00:00 PM EDT Medications Medication Brand Start Product Dose Route Administrative Pharmacy [facility] Indications Reaction Description Data Name Date Form Instructions Instructions Source(s) Bengze Mentho 12/27/ complet Bengay SIGM ACARE Greaseless l 100 2018 ed Greaseless (T he (methyl MG/ML 05:48: 15 %-10 % [place] salicylate- / 38 AM topical Home of menthol) 15 methyl EDT cream the %-10 % salicy [facility] topical late l Muslim cream [address] [place] [address]) MG/ML Topica l Cream [Benga y Origin al] Novolog 3 ML 12/27/ complet Novolog SIGM ACARE PenFill Insuli 2019 ed PenFill (The U-100 n, 05:35: U-100 [place] Insulin Aspart 16 AM Insulin Home o f (insulin , EDT aspart 100 the aspart Human unit/mL Evangelic a u-100) 100 subcutaneous l Lut heran aspart 100 UNT/ML cartridg [facility]) unit/mL Cartri subcutaneou dge s cartridg [NovoL og] senna 8.6 sennos senna 8. 6 mg SIGMACARE mg tablet ide, 2018 ed tablet (The SHELTER 08:42: [place] 8.6 MG 11 AM Home of Oral EDT the Tablet mycirQlelica [facility]) docusate 670850 docusate [facility] sodium 100 41122 2018 ed sodium 100 (T he mg tablet 01:26: mg tablet [place] 58 AM Home of EDT the AMRAS Venturea [facility]) senna 8.6 sennos senna 8. 6 mg SIG[facility] mg tablet ide, 2018 ed tablet (The SHELTER 11:19: [place] 8.6 MG 45 AM Home of Oral EDT the Tablet Geniuzza [facility]) allopurinol Allopu allopu rinol [facility] 100 mg rinol 2018 ed 100 mg (The tablet 100 MG 11:19: tablet [place] Oral 44 AM Home of Tablet EDT the GadgetATM [facility]) cyclobenzap Cyclob cyclob enzapr [facility] rine 5 mg enzapr 2018 ed ine 5 mg (The tablet ine 11:19: tablet [place] hydroc 44 AM Home of hlorid EDT the e 5 MG [facility] Oral [facility]) docusate 601711 docusate [facility] sodium 100 36780 2018 ed sodium 100 (T he mg tablet 11:19: mg tablet [place] 44 AM Home [facility] ferrous ferrou ferrous SI GMACARE sulfate 325 s 2018 ed sulfate 325 ( The mg (65 mg sulfat 11:19: mg (65 mg [place] iron) e 325 44 AM iron) tablet Home of tablet MG EDT the Oral [facility] Tablet [facility]) pantoprazol pantop complet pantop razole [facility] e 40 mg razole 2018 ed 40 mg (The tablet,jaci 40 MG 11:19: tablet,del ay [place] yed release Delaye 44 AM ed release Home of d EDT the Releas [facility] e Oral [facility]) furosemide Furose complet furosem ashley [facility] 40 mg mide 2019 ed 40 mg tablet (The tablet 40 MG 11:19: [place] Oral 44 AM Home of Tablet EDT the [facility]) tamsulosin Tamsul complet tamsulo sin [facility] 0.4 mg osin 2019 ed 0.4 mg (The capsule hydroc 11:19: capsule [place] hlor[place] 44 AM Home of e 0.4 EDT the MG [facility] Oral [facility]) e Novolog 3 ML Novolog SIGM ACARE PenFill Insuli 2019 ed PenFill (The U-100 n, 11:19: U-100 [place] Insulin Aspart 44 AM Insulin Home o f (insulin , EDT aspart 100 the aspart Human unit/mL Evangel[facility] a u-100) 100 subcutaneous l Lut heran aspart 100 UNT/ML cartridg [facility]) unit/mL Cartri subcutaneou dge s cartridg [NovoL og] gabapentin gabape gabapen tin [facility] 300 mg ntin 2019 ed 300 mg (The capsule 300 MG 11:19: capsule [place] Oral 43 AM Home of Capsul EDT the e [facility]) Vitamin C Ascorb Vitamin C SIGMACARE (ascorbic ic 2019 ed 500 mg (The acid Acid 11:19: tablet (vitamin 500 MG 43 AM Home of c)) 500 mg Oral EDT the tablet Tablet [facility]) atorvastati atorva atorva statin [facility] n 40 mg statin 2019 ed 40 mg tablet (T he tablet 40 MG 11:19: [place] Oral 43 AM Home of Tablet EDT the [facility]) multivitami 533182 multiv itamin SIGMACARE n tablet 54845 2019 ed tablet (The 11:19: [place] 43 AM Home of EDT the [facility]) loratadine Lor[place] complet loratad ine [facility] 10 mg dine 2019 ed 10 mg tablet (The tablet 10 MG 11:19: [place] Oral 43 AM Home of Tablet EDT the [facility]) Tylenol Acetam Tylenol 32 5 SIG[facility] (acetaminop inophe 2018 ed mg tablet ( The hen) 325 mg n 325 11:19: [place] tablet MG 42 AM Home of Oral EDT the Tablet Fátimaangelica [Tylen [facility]] Taoism) Tuberculin 207364 Tubercu megan [facility] Syringe 85638 2018 ed Syringe 1 mL (Th e (syringe 11:19: [place] (disposable 42 AM Home of )) 1 mL EDT the [facility]) Insurance Providers Payer name Policy type Policy ID Covered Covered republican's Policy P raam / Coverage republican ID relationship to Zhang Inf ormation type zhang BC PPO [id number] SP [id number] MEDICARE [id number] SP [id number] 26 6 MEDICAID [id number] SP [id number] MEDICARE [id number] SP [id number] A Medicare Medicare [id number] Self [id number] Part A Part A 6 Blue Cross / Blue Cross / [id number] Self [id number] [facility] 08 Medicaid - Medicaid [id number] Self [id number] [place] [id number] Self [id number] 26 Part B Part B 6 Blue Cross / 6 [id number] Self [id number] [facility] 08 Medicaid - 3 [id number] Self [id number] [place] Medicare 2 [id number] Self [id number] Part B 6 Medicare 18 [id number] Self [id number] 26 Part A 6 Medicare Medicare [id number] Self [id number] Part A Part A 6 Problems, Conditions, and Diagnoses Code Display Name Description Problem Type Effective Data Sour ce(s) Dates R52 Pain, unspecified Pain, unspecified Diagnosis 12/26/2018 [facility] (The 12:00:00 AM [place] [facility] EDT of the [facility]) R06.02 Shortness of breath Shortness of Diagnosis 12/16/2018 SIG MACARE (The breath 12:00:00 AM [facility] EDT of the [facility]) R26.2 Difficulty in Difficulty in Diagnosis 12/15/2018 SIGMACAR E (The walking, not walking, not 12:00:00 AM [facility] elsewhere elsewhere EDT of the classified classified [facility]) M62.81 Muscle weakness Muscle weakness Diagnosis 12/15/2018 SIGM ACARE (The (generalized) (generalized) 12:00:00 AM [place] EDT of the [facility]) E08.01 Diabetes mellitus Diabetes due to Diagnosis 12/13/2018 SI GMACARE (The due to underlying underlying 12:00:00 AM [place] condition with condition w EDT of the hyperosmolarity hyprosm w coma ang elical with coma [facility]) K59.09 Other constipation Other constipation Diagnosis 9 SIGMACARE (The 12:00:00 AM [facility] EDT of the [facility]) M62.838 Other muscle spasm Other muscle spasm Diagnosis 9 SIGMACARE (The 12:00:00 AM [place] EDT of the [facility]) 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 Diagnosis 12/13/2018 SIGMACARE (The impairment, impairment, 12:00:00 AM [place] [facility] me unspecified site unspecified site EDT of the [facility]) I10 Essential (primary) Essential Diagnosis 12/13/2018 SIGMA CARE (The hypertension (primary) 12:00:00 AM [facility] me hypertension EDT of the [facility]) E16.4 Increased secretion Increased Diagnosis 12/13/2018 SIGMA CARE (The of gastrin secretion of 12:00:00 AM [place] [facility] me gastrin EDT of the [facility]) E56.9 Vitamin deficiency, Vitamin Diagnosis 12/13/2018 SIGMA CARE (The unspecified deficiency, 12:00:00 AM [place] [facility] me unspecified EDT of the [facility]) H10.45 Other chronic Other chronic Diagnosis 12/13/2018 SIGMACAR E (The allergic allergic 12:00:00 AM [facility] conjunctivitis conjunctivitis EDT of the [facility]) 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 [facility]ARE (The 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 [facility] neuralgia neuralgia EDT of the [facility]) E54 Ascorbic acid Ascorbic acid Diagnosis 12/13/2018 SIGMACAR E (The deficiency deficiency 12:00:00 AM [place] EDT of the [facility]) G89.3 Neoplasm related Neoplasm related Diagnosis 12/13/2018 SI GMACARE (The pain (acute) pain (acute) 12:00:00 AM [facility] (chronic) (chronic) EDT of the [facility]) Z11.1 Encounter for Encounter for Diagnosis 12/13/2018 SIGMACAR E (The screening for screening for 12:00:00 AM [place] respiratory respiratory EDT of the tuberculosis tuberculosis [facility]) R07.9 Chest pain, Chest pain, Diagnosis 12/13/2018 SIGMACARE (T he unspecified unspecified 12:00:00 AM [place] [facility] me EDT of the [facility]) Z91.018 Allergy to other Allergy to other Diagnosis 12/13/2018 SI GMACARE (The foods foods 12:00:00 AM [place] EDT of [facility]) Z95.5 Presence of Presence of Diagnosis 12/13/2018 SIGMACARE (T he coronary coronary 12:00:00 AM [place] angioplasty implant angioplasty EDT of t he and graft implant and graft [facility]) N31.9 Neuromuscular Neuromuscular Diagnosis 12/13/2018 SIGMACAR E (The dysfunction of dysfunction of 12:00:00 AM [place] bladder, bladder, EDT of the unspecified unspecified [facility]) K21.9 Gastro-esophageal Gastro-esophageal Diagnosis 12/13/2018 SIGMACARE (The reflux disease reflux disease 12:00:00 AM [place] without esophagitis without EDT of th e esophagitis [facility]) 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 Diagnosis 9 SIGMACARE (The category 3, normal category 3, normal 12:00:00 AM [facility] vision right eye vision right eye EDT of the [facility]) E78.5 Hyperlipidemia, Hyperlipidemia, Diagnosis 12/13/2018 SIGM ACARE (The unspecified unspecified 12:00:00 AM [place] [facility] me EDT of the [facility]) E11.9 Type 2 diabetes Type 2 diabetes Diagnosis 12/13/2018 SIGM ACARE (The mellitus without mellitus without 12:00:00 AM [facility] [employer] [facility] complications complications EDT of the [facility]) D50.9 Iron deficiency Iron deficiency Diagnosis 12/13/2018 SIGM ACARE (The anemia, unspecified anemia, [facility]) N18.9 Chronic kidney Chronic kidney Diagnosis 12/13/2018 SIGMAC ARE (The disease, disease, 12:00:00 AM [facility] unspecified unspecified EDT of the [facility]) I50.32 Chronic diastolic Chronic diastolic Diagnosis 12/13/2018 SIGMACARE (The (congestive) heart (congestive) heart 12:00:00 AM [facility] failure failure EDT of the [facility]) I13.0 Hypertensive heart Hyp hrt & chr kdny Diagnosis 9 SIGMACARE (The and chronic kidney dis w hrt fail and 12:00:00 AM [facility] disease with heart stg 1-4/unsp chr EDT of the failure and stage 1 kdny [facility] through stage 4 [facility] kidney Taoism) disease, or unspecified chronic kidney disease 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 Diagnosis 12/13/2018 SIGMACA RE (The heart disease of disease of [place] 12:00:00 AM [facility] [place] coronary cor art w unstable EDT o f the artery with ang pctrs Anglican unstable angina Muslim pectoris Taoism) N40.1 Benign prostatic Benign prostatic Diagnosis 12/13/2018 SI GMACARE (The hyperplasia with hyperplasia with 12:00:00 AM [facility] lower urinary tract lower urinary EDT of the symptoms tract symp [facility]) I50.30 Unspecified Unspecified Diagnosis 12/13/2018 SIGMACARE (T he diastolic diastolic 12:00:00 AM [facility] (congestive) heart (congestive) heart EDT of the failure failure [facility]) Results ID Date Data Source [id number] 03/22/2020 12:00:00 AM EDT [facility] Name Value Range Interpretation Code Description Data Alexa rce(s) Supporting Document(s ) SARS-CoV-2 [facility] RNA Resp Ql CHRISTIE+probe This lab was ordered by [facility] and reported by [facility]. Procedure Vital Signs ID Date Data Source [id number] 01/02/2019 04:07:41 PM EDT SIGMACARE ( e [facility] of the [facility]) Name Value Range Interpretation Code Description Data Source(s) TEMPERATURE 98.1 F 98.1 F [facility] ( e [facility]) RESPIRATION 20 rpm 20 rpm [facility] ( e [facility]) PULSE 81 bpm 81 bpm [facility] (The [facility]) PAIN LEVEL 0 0 [facility] (The [facility]) DIASTOLIC BLOOD 67 mmHg 67 mmHg SIG[facility]ARE (The PRESSURE [facility]) SYSTOLIC BLOOD 126 mmHg 126 mmHg [facility] (The PRESSURE [facility]) OXYGEN SATURATION 97 % 97 % SIGMACA RE (The [facility]) PAIN LEVEL 0 0 [facility] (The [facility]) DIASTOLIC BLOOD 74 mmHg 74 mmHg SIG[facility]ARE (The PRESSURE [facility]) SYSTOLIC BLOOD 126 mmHg 126 mmHg [facility] (The PRESSURE [facility]) BLOOD SUGAR 250 mg/dL 250 mg/dL SIG[facility]ARE ( e [facility]) TEMPERATURE 97.8 F 97.8 F SIGMACARE (Th e [facility] OXYGEN SATURATION 96 % 96 % SIGMACA RE (The [facility]) BLOOD SUGAR 215 mg/dL 215 mg/dL SIGMACARE (Th e [facility]) TEMPERATURE 97.5 F 97.5 F [facility] (Th e [facility] RESPIRATION 20 rpm 20 rpm SIG[facility]ARE (Th e [facility]) PULSE 70 bpm 70 bpm SIG[facility] (The [facility] the [facility]) PAIN LEVEL 0 0 [facility]ARE (The [facility]) DIASTOLIC BLOOD 63 mmHg 63 mmHg SIGMACARE (The PRESSURE [facility]) SYSTOLIC BLOOD 112 mmHg 112 mmHg SIGMACARE (The PRESSURE [facility]) PAIN LEVEL 0 0 [facility] (The [facility]) DIASTOLIC BLOOD 71 mmHg 71 mmHg SIGMACARE (The PRESSURE [facility]) SYSTOLIC BLOOD 139 mmHg 139 mmHg SIGMACARE (The PRESSURE [facility]) WEIGHT 195 lbs 195 lbs SIG[facility]ARE (The [facility]) PULSE 78 bpm 78 bpm [facility] (The [facility]) RESPIRATION 18 rpm 18 rpm SIG[facility]ARE (Th e [facility]) PAIN LEVEL 0 0 [facility] (The [facility]) BLOOD SUGAR 246 mg/dL 246 mg/dL SIGMACARE (Th e [facility]) DIASTOLIC BLOOD 70 mmHg 70 mmHg SIGMACARE (The PRESSURE [facility] of the Misty Ahumada [facility]) SYSTOLIC BLOOD 132 mmHg 132 mmHg SIGMACARE (The PRESSURE [facility] the [facility] Pate[facility]) TEMPERATURE 97.5 F 97.5 F SIGMACARE (Th e [facility] the [facility] Pate[facility]) PULSE 74 bpm 74 bpm SIGMACARE (The [facility] DIASTOLIC BLOOD 68 mmHg 68 mmHg SIGMACARE (The PRESSURE [facility] the [facility] SYSTOLIC BLOOD 121 mmHg 121 mmHg SIGMACARE (The PRESSURE [facility] the [facility]) TEMPERATURE 98.7 F 98.7 F SIGMACARE (Th e [facility] the [facility]) PAIN LEVEL 0 0 SIGMACARE (The [facility] the [facility]) TEMPERATURE 96.8 F 96.8 F SIGMACARE (Th e [facility] of the [facility]) RESPIRATION 20 rpm 20 rpm SIGMACARE (Th e [facility] the [facility]) PULSE 72 bpm 72 bpm SIGMACARE (The [facility] the [facility]) DIASTOLIC BLOOD 69 mmHg 69 mmHg SIGMACARE (The PRESSURE [facility] of the [facility]) SYSTOLIC BLOOD 144 mmHg 144 mmHg SIGMACARE (The PRESSURE [facility] of the [facility]) PAIN LEVEL 0 0 SIGMACARE (The [facility] of the [facility] PateMuslim [facility]) BLOOD SUGAR 220 mg/dL 220 mg/dL SIGMACARE (Th e [facility] of the [facility] ibggs [facility]) TEMPERATURE 98.5 F 98.5 F SIGMACARE (Th e [facility] of the [facility]) PAIN LEVEL 0 0 SIGMACARE (The [facility] the [facility]) DIASTOLIC BLOOD 65 mmHg 65 mmHg SIGMACARE (The PRESSURE [facility] of the Fátimaangelica l [facility]) SYSTOLIC BLOOD 114 mmHg 114 mmHg SIGMACARE (The PRESSURE [facility] of the [facility]) PULSE 72 bpm 72 bpm SIGMACARE (The [facility] of the [facility] PateMuslim [facility]) WEIGHT 198 lbs 198 lbs SIGMACARE (The [facility] the [facility]) PAIN LEVEL 0 0 SIGMACARE (The [facility] of the [facility] PateMuslim [facility]) BLOOD SUGAR 220 mg/dL 220 mg/dL SIGMACARE (Th e [facility] the [facility]) TEMPERATURE 97.4 F 97.4 F SIGMACARE (Th e [facility] of the [facility]) RESPIRATION 20 rpm 20 rpm SIGMACARE (Th e [facility] of the [facility]) PULSE 68 bpm 68 bpm SIGMACARE (The [facility] the [facility]) PAIN LEVEL 0 0 SIGMACARE (The [facility] of the [facility]) DIASTOLIC BLOOD 53 mmHg 53 mmHg SIGMACARE (The PRESSURE [facility] of the [facility]) SYSTOLIC BLOOD 157 mmHg 157 mmHg SIGMACARE (The PRESSURE [facility] of the [facility]) TEMPERATURE 98.7 F 98.7 F SIGMACARE (Th e [facility] of the [facility]) PAIN LEVEL 0 0 SIGMACARE (The [facility] the [facility]) DIASTOLIC BLOOD 83 mmHg 83 mmHg SIGMACARE (The PRESSURE [facility] of the [facility]) SYSTOLIC BLOOD 147 mmHg 147 mmHg SIGMACARE (The PRESSURE [facility] of the [facility]) PAIN LEVEL 0 0 SIGMACARE (The [facility] of the [facility] PateMuslim [facility]) WEIGHT 203 lbs 203 lbs SIGMACARE (The [facility] the [facility]) OXYGEN SATURATION 98 % 98 % SIGMACA RE (The [facility] of the Misty Ahumada [facility]) HEIGHT 60 in 60 in SIGMACARE (The [facility] of the [facility] PateMuslim [facility]) RESPIRATION 2 rpm 2 rpm SIGMACARE (Th e [facility] of the Misty Patetheran [facility]) HEIGHT 60 in 60 in SIGMACARE (The [facility] of the [facility] Pate[facility]) HEIGHT 60 in 60 in SIGMACARE (The [facility] of the Misty Ahumada [facility]
[2020-05-17] MEDS ORDERED: MORPHINE SULFATE 2 MG/ML VIAL ONE (21:14)
[2020-05-17] MEDS ORDERED: CEFTRIAXONE 2 GM/100 ML BAG IVPB ONE (21:14)
[2020-05-17 21:27] LABS: BASO % 1.1 % (0-2.0); EOS % 2.2 % (0-4.5); HEMATOCRIT 35.2 % (32.4-45.2); HEMOGLOBIN 12.2 GM/dL (10.7-15.3); LYMPH % 11.1 % (8-40); MCH 33.8 pg (25.7-33.7); MCHC 34.6 g/dl (32.0-36.0); MEAN CELL VOLUME 97.9 fl (80-96); MEAN PLT VOLUME 9.4 fl (7.5-11.1); MONO % 7.8 % (3.8-10.2); NEUT % 77.8 % (42.8-82.8); PLATELET COUNT 215 K/MM3 (134-434); RDW 15.9 % (11.6-15.6); WHITE BLOOD COUNT 10.8 K/mm3 (4.0-10.0)
[2020-05-17 22:59] LABS: ALBUMIN 3.1 g/dl (3.4-5.0); BILIRUBIN,TOTAL 0.8 mg/dL (0.2-1); BLOOD UREA NITROGEN 52.6 mg/dL (7-18); CALCIUM 8.2 mg/dL (8.5-10.1); CREATININE 1.8 mg/dL (0.55-1.3); POTASSIUM 3.8 mmol/L (3.5-5.1); TOT PROT 6.6 g/dl (6.4-8.2)
[2020-05-17] MEDS ORDERED: LACTATED RINGERS SOLUTION 1000 ML INFUS.BAG IV ONE (23:02)
[2020-05-17] MEDS ORDERED: ACETAMINOPHEN 1000 MG/100 ML VIAL (NON FORMULARY) IVPB ONE (23:24)
[2020-05-18] MEDS ORDERED: ACETAMINOPHEN INJECTION 100 ML IVPB ONE ×3 (00:02→14:43)
--- OUTSIDE RECORDS SUMMARY | 2020-05-18 00:22 | XMS ---
:1935 Author Organization [facility] Care Team Providers Name Role Phone [...] Unavailable Unavailable IanIván merino MD Unavailable Unavailable IanvIán merino MD Unavailable Unavailable IanIván merino MD Unavailable Unavailable IanIván merino MD Unavailable Unavailable IanIván merino MD Unavailable Unavailable IanIván merino MD Unavailable Unavailable IanIván merino MD Unavailable Unavailable IanIván merino MD Unavailable Unavailable IanIván merino MD Unavailable Unavailable IanIván merino MD Unavailable Unavailable IanIván merino MD Unavailable Unavailable Re-disclosure Warning The records [...] is protected by Article 27-F of the [facility] Public Health law. If you continue you may haveaccess to information: Regarding HIV / AIDS; Provided by facilities licensed or operated by the [facility] Office of Mental Health; or Provided by the [facility] Office for People With Developmental Disabilities. If such information is present, then the following [facility] mandated warning applies: This information has been [...] law may result in a fine or [place] health care facility sentence or both. A general authorization for the release of medical or other information is NOT sufficient authorization for further disclosure. Allergies and Adverse Reactions Type Description Substance Reaction Status Data Source(s ) Miscellaneous allergy tomato sauce tomato sauce SIG[facility] (The [place] [facility]) Encounters Encounter Providers Location Date Indications Data Source(s ) Inpatient Attender: 2 South-2 North 12/13/2018 [facility] (The Skyler Sosa MD 03:00:00 PM [place] [facility] EDT - the [facility] l 12/30/2018 [facility]) 12:00:00 PM EDT Medications Medication Brand Start Product Dose Route Administrative Pharmacy [facility] Indications Reaction Description Data Name Date Form Instructions Instructions Source(s) Bengay Mentho 12/27/ complet Bengay SIGM ACARE Greaseless l 100 2018 ed Greaseless (T he (methyl MG/ML 05:48: 15 %-10 % [place] salicylate- / 38 AM topical Home of menthol) 15 methyl EDT cream the %-10 % salicy [facility] topical late l [facility]ational cream [address] [place] [address]) MG/ML Topica l Cream [Benga y Origin al] Novolog 3 ML 12/27/ complet Novolog SIGM ACARE PenFill Insuli 2019 ed PenFill (The U-100 n, 05:35: U-100 [place] Insulin Aspart 16 AM Insulin Home o f (insulin , EDT aspart 100 the aspart Human unit/mL Evangelic a u-100) 100 subcutaneous l Lut heran aspart 100 UNT/ML [facility]) unit/mL Cartri subcutaneou dge s cartridg [NovoL og] senna 8.6 sennos complet senna 8. 6 mg SIGMACARE mg tablet ides, 2018 ed tablet (The [facility] 08:42: [place] 8.6 MG 11 AM Home of Oral EDT the Tablet [facility]) docusate 234618 docusate [facility] sodium 100 37784 2018 ed sodium 100 (T he mg tablet 01:26: mg tablet [place] 58 AM Home of EDT the Go Dish [facility]) senna 8.6 sennos complet senna 8. 6 mg SIG[facility]ARE mg tablet ides, 2018 ed tablet (The [facility] 11:19: [place] 8.6 MG 45 AM Home of Oral EDT the Tablet [facility]) allopurinol Allopu allopu rinol [facility] 100 mg rinol 2018 ed 100 mg (The tablet 100 MG 11:19: tablet [place] Oral 44 AM Home of Tablet EDT the Go Dish [facility]) cyclobenzap Cyclob cyclob enzapr [facility]ARE rine 5 mg enzapr 2018 ed ine 5 mg (The tablet ine 11:19: tablet [place] hydroc 44 AM Home of hlorid EDT the e 5 MG [facility] Oral [facility]) docusate 085241 docusate [facility] sodium 100 06308 2018 ed sodium 100 (T he mg tablet 11:19: mg tablet [place] 44 AM Home [facility] the [facility] ferrous ferrou complet ferrous SI GMACARE sulfate 325 s 2018 ed sulfate 325 ( The mg (65 mg sulfat 11:19: mg (65 mg [place] iron) e 325 44 AM iron) tablet Home of tablet MG EDT the Oral angelica Tablet [facility]) pantoprazol pantop complet pantop razole [facility] e 40 mg razole 2019 ed 40 mg (The tablet,jaci 40 MG 11:19: tablet,del ay [place] yed release Delaye 44 AM ed release Home of d EDT the Releas [facility] e Oral [facility]) furosemide Furose complet furosem ashley [facility] 40 mg mide 2019 ed 40 mg tablet (The tablet 40 MG 11:19: [place] Oral 44 AM Home of Tablet EDT the [facility]) tamsulosin Tamsul complet tamsulo sin [facility] 0.4 mg osin 2019 ed 0.4 mg (The capsule hydroc 11:19: capsule [place] hlorid 44 AM Home of e 0.4 EDT the MG [facility] Oral [facility]) e Novolog 3 ML complet Novolog SIGM ACARE PenFill Insuli 2019 ed PenFill (The U-100 n, 11:19: U-100 [place] Insulin Aspart 44 AM Insulin Home o f (insulin , EDT aspart 100 the aspart Human unit/mL Evangel[facility] a u-100) 100 subcutaneous l Lut heran aspart 100 UNT/ML cartridg [facility]) unit/mL Cartri subcutaneou dge s cartridg [NovoL og] gabapentin gabape gabapen tin [facility] 300 mg ntin 2019 ed 300 mg (The capsule 300 MG 11:19: capsule [place] Oral 43 AM Home of Capsul EDT the e [facility]) Vitamin C Ascorb Vitamin C SIG[facility]ARE (ascorbic ic 2019 ed 500 mg (The acid Acid :: tablet [place] (vitamin 500 MG 43 AM Home of c)) 500 mg Oral EDT the tablet Tablet [facility]) atorvastati atorva complet atorva statin [facility] n 40 mg statin 2019 ed 40 mg tablet (T he tablet 40 MG 11:19: [place] Oral 43 AM Home of Tablet EDT the [facility]) multivitami 121885 multiv itamin [facility]ARE n tablet 52454 2019 ed tablet (The 11:19: [place] 43 AM Home of EDT the [facility]) loratadine [place] loratad ine [facility] 10 mg dine 2019 ed 10 mg tablet (The tablet 10 MG 11:19: [place] Oral 43 AM Home of Tablet EDT the [facility]) Tylenol Acetam Tylenol 32 5 [facility] (acetaminop inophe 2018 ed mg tablet ( The hen) 325 mg n 325 11:19: [place] tablet MG 42 AM Home of Oral EDT the Tablet Fátimaangelica [Ellieen [facility]] Spiritism) Tuberculin 174330 Tubercu megan [facility] Syringe 38299 2018 ed Syringe 1 mL (Th e (syringe 11:19: [place] (disposable 42 AM Home of )) 1 mL EDT the [facility]) Insurance Providers Payer name Policy type Policy ID Covered Covered libertarian's Policy P rama / Coverage libertarian ID relationship to Zhang Inf ormation type zhang BC PPO [id number] SP [id number] MEDICARE [id number] SP [id number] 26 6 MEDICAID [id number] SP [id number] MEDICARE [id number] SP [id number] A Medicare Medicare [id number] Self [id number] Part A Part A 6 Blue Cross / Blue Cross / [id number] Self [id number] [facility] 08 Medicaid - Medicaid [id number] Self [id number] [place] Medicare Medicare [id number] Self [id number] Part B Part B 6 Blue Cross / 6 [id number] Self [id number] [place] [address] Medicaid - 3 [id number] Self [id number] [place] Medicare 2 [id number] Self [id number] Part B 6 Medicare 18 [id number] Self [id number] 26 Part A 6 Medicare Medicare [id number] Self [id number] Part A Part A 6 Problems, Conditions, and Diagnoses Code Display Name Description Problem Type Effective Data Sour ce(s) Dates R52 Pain, unspecified Pain, unspecified Diagnosis 12/26/2018 [facility] (The 12:00:00 AM [place] [facility] EDT of the [facility]) R06.02 Shortness of breath Shortness of Diagnosis 12/16/2018 SIG MACARE (The breath 12:00:00 AM [place] [facility] EDT of the [facility]) R26.2 Difficulty in Difficulty in Diagnosis 12/15/2018 SIGMACAR E (The walking, not walking, not 12:00:00 AM [place] [facility] elsewhere elsewhere EDT of the classified classified [facility]) M62.81 Muscle weakness Muscle weakness Diagnosis 12/15/2018 SIGM ACARE (The (generalized) (generalized) 12:00:00 AM [place] EDT of the [facility]) E08.01 Diabetes mellitus Diabetes due to Diagnosis 12/13/2018 SI GMACARE (The due to underlying underlying 12:00:00 AM [place] condition with condition w EDT of the hyperosmolarity hyprosm w coma ang elical with coma [facility]) K59.09 Other constipation Other constipation Diagnosis 9 SIG[facility]ARE (The 12:00:00 AM [place] [facility] EDT of the [facility]) M62.838 Other muscle spasm Other muscle spasm Diagnosis 9 [facility] (The 12:00:00 AM [place] [facility] EDT of the [facility]) 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 Diagnosis 12/13/2018 [facility]ARE (The impairment, impairment, 12:00:00 AM [place] [facility] [place] unspecified site unspecified site EDT of the [facility]) I10 Essential (primary) Essential Diagnosis 12/13/2018 SIGMA CARE (The hypertension (primary) 12:00:00 AM [place] [facility] me hypertension EDT of the [facility]) E16.4 Increased secretion Increased Diagnosis 12/13/2018 [facility]ARE (The of gastrin secretion of 12:00:00 AM [place] [facility] me gastrin EDT of the [facility]) E56.9 Vitamin deficiency, Vitamin Diagnosis 12/13/2018 [facility] CARE (The unspecified deficiency, 12:00:00 AM [place] unspecified EDT of the [facility]) H10.45 Other chronic Other chronic Diagnosis 12/13/2018 SIGMACAR E (The allergic allergic 12:00:00 AM [place] [facility] conjunctivitis conjunctivitis EDT of the [facility]) 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 [facility] (The 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 [place] [facility] neuralgia neuralgia EDT of the [facility]) E54 Ascorbic acid Ascorbic acid Diagnosis 12/13/2018 SIGMACAR E (The deficiency deficiency 12:00:00 AM [place] EDT of the [facility]) G89.3 Neoplasm related Neoplasm related Diagnosis 12/13/2018 SI GMACARE (The pain (acute) pain (acute) 12:00:00 AM [place] [facility] (chronic) (chronic) EDT of the [facility]) Z11.1 Encounter for Encounter for Diagnosis 12/13/2018 SIGMACAR E (The screening for screening for 12:00:00 AM [place] respiratory respiratory EDT of the tuberculosis tuberculosis [facility]) R07.9 Chest pain, Chest pain, Diagnosis 12/13/2018 SIG[facility]ARE (T he unspecified unspecified 12:00:00 AM [place] EDT of the [facility]) Z91.018 Allergy to other Allergy to other Diagnosis 12/13/2018 SI GMACARE (The foods foods 12:00:00 AM [place] EDT of [facility]) Z95.5 Presence of Presence of Diagnosis 12/13/2018 SIG[facility]ARE (T he coronary coronary 12:00:00 AM [place] angioplasty implant angioplasty EDT of t he and graft implant and graft [facility]) N31.9 Neuromuscular Neuromuscular Diagnosis 12/13/2018 SIGMACAR E (The dysfunction of dysfunction of 12:00:00 AM [place] [facility] bladder, bladder, EDT of the unspecified unspecified [facility]) K21.9 Gastro-esophageal Gastro-esophageal Diagnosis 12/13/2018 [facility]ARE (The reflux disease reflux disease 12:00:00 AM [place] without esophagitis without EDT of th e esophagitis [facility]) 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 Diagnosis 9 SIGMACARE (The category 3, normal category 3, normal 12:00:00 AM [place] [facility] vision right eye vision right eye EDT of the [facility]) E78.5 Hyperlipidemia, Hyperlipidemia, Diagnosis 12/13/2018 SIGM ACARE (The unspecified unspecified 12:00:00 AM [place] EDT of the [facility]) E11.9 Type 2 diabetes Type 2 diabetes Diagnosis 12/13/2018 SIGM ACARE (The mellitus without mellitus without 12:00:00 AM [facility] complications complications EDT of the [facility]) D50.9 Iron deficiency Iron deficiency Diagnosis 12/13/2018 SIGM ACARE (The anemia, unspecified anemia, 12:00:00 [facility] unspecified EDT of the [facility]) N18.9 Chronic kidney Chronic kidney Diagnosis 12/13/2018 SIGMAC ARE (The disease, disease, 12:00:00 AM [facility] unspecified unspecified EDT of the [facility]) I50.32 Chronic diastolic Chronic diastolic Diagnosis 12/13/2018 SIG[facility]ARE (The (congestive) heart (congestive) heart 12:00:00 AM [facility] failure failure EDT of the [facility]) I13.0 Hypertensive heart Hyp hrt & chr kdny Diagnosis 9 SIGMACARE (The and chronic kidney dis w hrt fail and 12:00:00 AM [place] [facility] disease with heart stg 1-4/unsp chr EDT of the failure and stage 1 kdny [facility] through stage 4 [facility] kidney Spiritism) disease, or unspecified chronic kidney disease 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 Diagnosis 12/13/2018 SIGMACA RE (The heart disease of disease of [place] 12:00:00 AM [facility] [place] coronary cor art w unstable EDT o f the artery with ang pctrs Confucianist unstable angina [facility]ational pectoris [facility]) N40.1 Benign prostatic Benign prostatic Diagnosis 12/13/2018 SI GMACARE (The hyperplasia with hyperplasia with 12:00:00 [facility] lower [facility] tract lower urinary EDT of the symptoms tract symp [facility]) I50.30 Unspecified Unspecified Diagnosis 12/13/2018 SIGMACARE (T he diastolic diastolic 12:00:00 AM [place] [facility] (congestive) heart (congestive) heart EDT of the failure failure [facility]) Results ID Date Data Source [id number] 03/22/2020 12:00:00 AM EDT [facility] Name Value Range Interpretation Code Description Data Alexa rce(s) Supporting Document(s ) SARS-CoV-2 [facility] RNA Resp Ql CHRISTIE+probe This lab was ordered by [facility] and reported by [facility]. Procedure Vital Signs ID Date Data Source [id number] 01/02/2019 04:07:41 PM EDT SIG[facility]ARE ( e [place] [facility]) Name Value Range Interpretation Code Description Data Source(s) TEMPERATURE 98.1 F 98.1 F [facility] ( e [facility] [facility]) RESPIRATION 20 rpm 20 rpm [facility] ( e [place] [facility]) PULSE 81 bpm 81 bpm [facility] (The [facility] [facility]) PAIN LEVEL 0 0 [facility] (The [facility] [facility]) DIASTOLIC BLOOD 67 mmHg 67 mmHg SIG[facility]ARE (The PRESSURE [place] [facility]) SYSTOLIC BLOOD 126 mmHg 126 mmHg [facility]ARE (The PRESSURE [facility] [facility]) OXYGEN SATURATION 97 % 97 % SIGMACA RE (The [facility] [facility]) PAIN LEVEL 0 0 [facility] (The [place] [facility]) DIASTOLIC BLOOD 74 mmHg 74 mmHg [facility] (The PRESSURE [place] [facility]) SYSTOLIC BLOOD 126 mmHg 126 mmHg [facility] (The PRESSURE [place] [facility]) BLOOD SUGAR 250 mg/dL 250 mg/dL [facility] ( e [place] [facility]) TEMPERATURE 97.8 F 97.8 F SIGMACARE (Th e [place] [facility] OXYGEN SATURATION 96 % 96 % SIGMACA RE (The [place] [facility] big[facility] BLOOD SUGAR 215 mg/dL 215 mg/dL SIG[facility]ARE (Th e [place] [facility] TEMPERATURE 97.5 F 97.5 F SIGMACARE (Th e [place] [facility] of the [facility] dian [facility]) RESPIRATION 20 rpm 20 rpm SIGMACARE (Th e [place] [facility] of the [facility] dian [facility]) PULSE 70 bpm 70 bpm SIGMACARE (The [facility] [facility] of the [facility] dian [facility]) PAIN LEVEL 0 0 SIG[facility]ARE (The [place] [facility] of the [facility] dian [facility]) DIASTOLIC BLOOD 63 mmHg 63 mmHg SIGMACARE (The PRESSURE [place] [facility] of the F[facility]tim[facility] dian [facility] SYSTOLIC BLOOD 112 mmHg 112 mmHg [facility]ARE (The PRESSURE [place] [facility] the [facility]) PAIN LEVEL 0 0 [facility] (The [place] [facility]) DIASTOLIC BLOOD 71 mmHg 71 mmHg [facility]ARE (The PRESSURE [place] [facility] the [facility]) SYSTOLIC BLOOD 139 mmHg 139 mmHg SIG[facility]ARE (The PRESSURE [place] [facility] the [facility]) WEIGHT 195 lbs 195 lbs SIGMACARE (The [place] [facility] of the [facility] dian [facility]) PULSE 78 bpm 78 bpm SIG[facility]ARE (The [place] [facility] of the [facility] dian [facility]) RESPIRATION 18 rpm 18 rpm SIGMACARE (Th e [place] [facility] of the [facility]) PAIN LEVEL 0 0 SIG[facility]ARE (The [place] [facility] the [facility] BLOOD SUGAR 246 mg/dL 246 mg/dL SIGMACARE (Th e [place] [facility] of the [facility]) DIASTOLIC BLOOD 70 mmHg 70 mmHg SIG[facility]ARE (The PRESSURE [place] [facility] of the [facility]) SYSTOLIC BLOOD 132 mmHg 132 mmHg [facility]ARE (The PRESSURE [place] [facility] TEMPERATURE 97.5 F 97.5 F SIGMACARE (Th e [place] [facility] PULSE 74 bpm 74 bpm [facility]ARE (The [place] [facility] DIASTOLIC BLOOD 68 mmHg 68 mmHg SIG[facility]ARE (The PRESSURE [place] [facility] the [facility] SYSTOLIC BLOOD 121 mmHg 121 mmHg SIG[facility]ARE (The PRESSURE [place] [facility] the [facility] TEMPERATURE 98.7 F 98.7 F SIGMACARE (Th e [place] [facility] the [facility] PAIN LEVEL 0 0 [facility]ARE (The [place] [facility] TEMPERATURE 96.8 F 96.8 F SIGMACARE (Th e [place] [facility] the [facility] RESPIRATION 20 rpm 20 rpm SIGMACARE (Th e [place] [facility] of the [facility] big[facility] PULSE 72 bpm 72 bpm [facility] (The [place] [facility] the [facility] DIASTOLIC BLOOD 69 mmHg 69 mmHg SIG[facility]ARE (The PRESSURE [place] [facility] the [facility] SYSTOLIC BLOOD 144 mmHg 144 mmHg [facility]ARE (The PRESSURE [place] [facility] the [facility] PAIN LEVEL 0 0 [facility]ARE (The [place] [facility] BLOOD SUGAR 220 mg/dL 220 mg/dL SIGMACARE (Th e [place] [facility] the [facility] TEMPERATURE 98.5 F 98.5 F SIGMACARE (Th e [place] [facility] the [facility] PAIN LEVEL 0 0 [facility]ARE (The [place] [facility] DIASTOLIC BLOOD 65 mmHg 65 mmHg SIGMACARE (The PRESSURE [place] [facility] of the [facility] SYSTOLIC BLOOD 114 mmHg 114 mmHg [facility]ARE (The PRESSURE [place] [facility] the [facility] PULSE 72 bpm 72 bpm SIGMACARE (The [place] [facility] WEIGHT 198 lbs 198 lbs SIG[facility]ARE (The [place] [facility]) PAIN LEVEL 0 0 SIG[facility]ARE (The [place] [facility] the [facility] BLOOD SUGAR 220 mg/dL 220 mg/dL SIGMACARE (Th e [place] [facility] the [facility] TEMPERATURE 97.4 F 97.4 F SIGMACARE (Th e [place] [facility] the [facility] RESPIRATION 20 rpm 20 rpm SIGMACARE (Th e [place] [facility] of the [facility]) PULSE 68 bpm 68 bpm SIG[facility]ARE (The [place] [facility] PAIN LEVEL 0 0 SIG[facility]ARE (The [place] [facility] the [facility]) DIASTOLIC BLOOD 53 mmHg 53 mmHg SIGMACARE (The PRESSURE [place] [facility] the [facility]) SYSTOLIC BLOOD 157 mmHg 157 mmHg SIG[facility]ARE (The PRESSURE [place] [facility] the [facility]) TEMPERATURE 98.7 F 98.7 F SIGMACARE (Th e [place] [facility] the [facility]) PAIN LEVEL 0 0 SIG[facility]ARE (The [place] [facility] the [facility]) DIASTOLIC BLOOD 83 mmHg 83 mmHg SIGMACARE (The PRESSURE [place] [facility] the [facility] SYSTOLIC BLOOD 147 mmHg 147 mmHg SIGMACARE (The PRESSURE [place] [facility] the [facility] PAIN LEVEL 0 0 [facility] (The [place] [facility] WEIGHT 203 lbs 203 lbs SIGMACARE (The [place] [facility] the [facility] [facility] [place] OXYGEN SATURATION 98 % 98 % [facility] ([facility] HEIGHT 60 in 60 in [facility] ([facility]) RESPIRATION 2 rpm 2 rpm [facility] ([facility]) HEIGHT 60 in 60 in [facility] ([facility]) HEIGHT 60 in 60 in [facility] ([facility])
--- NOTE | 2020-05-18 01:04 | PN ---
Teaching Attending Note Name of Resident: Donna Cai ATTENDING PHYSICIAN STATEMENT I saw and evaluated the patient. I reviewed the resident's note and discussed the case with the resident. I agree with the resident's findings and plan as documented. SUBJECTIVE: 85yoF with h/o NSTEMI s/p stent, chronic diastolic HF, COPD on 2L NC, HLD, T2DM on insulin, chronic anemia, venous insufficiency, and chronic BLE wounds who presents with left hip and knee pain. Patient reports developing sudden, acute pain in her left groin 2 days ago as she was getting into bed which radiates to the medial knee. Pain has grown progressively worse in the interim, active ROM now limited by pain. Denies numbness, tingling, trauma. Has not tried any analgesic medications. The pain was unbearable today so she was referred from her fpc to the ED. Patient developed temperature of 100.3F in the ED. Labs notable for WBC 10.8, BUN 53, creatinine 1.8 from baseline 1.3. Doppler of the LLE negative for DVT. Plain films of the left knee and hip have been obtained, read pending. Patient received morphine with some improvement in pain as well as ceftriaxone and vancomycin due to concern for cellulitis. ROS in addition to above: (+) constipation, abd discomfort (-) dysuria, nausea, vomiting, fever OBJECTIVE: Vital Signs - 24 hr 05/17/20 05/18/20 19:29 03:40 Temperature 97.9 F 97.7 F Pulse Rate 81 Pulse Rate [ 59 L Right Radial] Respiratory 16 18 Rate Blood Pressure 110/52 L Blood Pressure 128/60 [Left Arm] O2 Sat by Pulse 96 95 Oximetry (%) EXAM Gen: awake, alert, NAD HEENT: NC/AT CV: RRR, no MRG appreciated Resp: CTAB Abd: Distended, soft. Mild tenderness to palpation epigastric area, +bowel sounds Ext: Passive ROM of left hip and knee limited by pain. Tender to palpation medial knee, anterior and lateral hip. No palpable masses or bruising noted. Derm: Erythma and multiple shallow ulcerations bilateral lower legs. Right lower leg sligthly warm to touch and more tender than left, no purulent drainage or underlying fluctuance. Neuro: strength 4/5 BUE, 3/5 RLE, LLE strength unable to be assessed due to pain. Sensation grossly intact Psych: AOx3 Laboratory Results - last 24 hr 05/17/20 05/17/20 05/17/20 01:27 21:10 21:10 WBC 10.8 H RBC 3.60 Hgb 12.2 Hct 35.2 MCV 97.9 H MCH 33.8 H MCHC 34.6 RDW 15.9 H Plt Count 215 MPV 9.4 Absolute Neuts (auto) 8.4 H Neutrophils % 77.8 Lymphocytes % 11.1 D Monocytes % 7.8 Eosinophils % 2.2 Basophils % 1.1 Nucleated RBC % 0 ESR D-Dimer 1166 H Sodium Potassium Chloride Carbon Dioxide Anion Gap BUN Creatinine Est GFR (CKD-EPI)AfAm Est GFR (CKD-EPI)NonAf Random Glucose Calcium Total Bilirubin AST ALT Alkaline Phosphatase Creatine Kinase 123 Troponin I < 0.02 Total Protein Albumin Blood Type Antibody Screen 05/17/20 05/17/20 05/17/20 21:10 21:14 21:14 WBC RBC Hgb Hct MCV MCH MCHC RDW Plt Count MPV Absolute Neuts (auto) Neutrophils % Lymphocytes % Monocytes % Eosinophils % Basophils % Nucleated RBC % ESR Cancelled D-Dimer Sodium 138 Potassium 3.8 Chloride 95 L Carbon Dioxide 35 H Anion Gap 8 BUN 52.6 H Creatinine 1.8 H Est GFR (CKD-EPI)AfAm 28.82 Est GFR (CKD-EPI)NonAf 24.87 Random Glucose 185 H Calcium 8.2 L Total Bilirubin 0.8 AST 39 H ALT 21 Alkaline Phosphatase 90 Creatine Kinase Troponin I Total Protein 6.6 Albumin 3.1 L Blood Type A POSITIVE Antibody Screen Negative Imaging reviewed in chart ASSESSMENT AND PLAN: 85yoF with h/o NSTEMI s/p stent, chronic diastolic HF, COPD on 2L NC, HLD, T2DM on insulin, chronic anemia, venous insufficiency, and chronic BLE wounds who presents with left hip and knee pain. Left hip, knee pain Atraumatic and acute onset, ongoing x2 days. Exam limited by pain Plain films of hip and knee obtained, reads pending Exam reassuring against radiculopathy; differentials include OA, bursitis, avascular necrosis - f/u reads of hip/knee imaging; consider further imaging or ortho consult if abnormal - Tylenol, morphine PRN for pain RLE nonpurulent cellulitis Has chronic venous stasis changes and sees wound care for her chronic wounds RLE appears more erythematous, more tender than left s/p ceftriaxone and vancomycin in ED - continue ceftriaxone CAROLYN Likely prerenal given elevated BUN:Cr ratio - hold home diuretics - encourage PO hydration - avoid nephrotoxic meds Chronic diastolic heart failure: hold Lasix/metolazone for now as above, resume as appropriate COPD: not in acute exacerbation. Continue home O2, inhalers T2DM: ISS CAD: continue aspirin, atorvastatin, Imdur DVT ppx: heparin subq
--- NOTE | 2020-05-18 01:34 | PDOC ---
Documentation entered by Samantha Dhillon SCRIBE, acting as scribe for Berenice Nguyen MD. Berenice Nguyen MD: This documentation has been prepared by the Alejo barclay Brenda, SCRIBE, under my direction and personally reviewed by me in its entirety. I confirm that the documentation accurately reflects all work, treatment, procedures, and medical decision making performed by me. Attending Attestation - Resident Resident Name: Tyler Rivera - ED Attending Attestation I have performed the following: I have examined & evaluated the patient, The case was reviewed & discussed with the resident, I agree w/resident's findings & plan, Exceptions are as noted - HPI HPI: 05/17/20 20:02 The patient is an 85 year old female with a significant PMH of obesity, COPD, CAD (s/p stents), NSTEMI, CHF, HLD, DM, GERD, anemia and left eye blindness who presents to the emergency department [facility] from [facility] for left leg pain. Patient states that she's had the pain since 4:00pm today from her hip down to toes. She also states she is unable to move it or ambulate. Denies fall. Patient ambulates with a wheelchair, ?holds wheelchair. The patient denies chest pain, shortness of breath, headache and dizziness. Denies fever, chills, nausea, vomiting, diarrhea and constipation. Denies dysuria, frequency, urgency and hematuria. Allergies: NKDA Surgical Hx: Cholystectomy, Right Hip ORIF and cardiac stents Social history: No reported hx of tobacco use, alcohol use or illicit drug use. PCP: Tommy - Physicial Exam PE: 05/17/20 20:07 GENERAL: Obese Well-appearing, well-nourished. No apparent distress. HEENT: No neck pain. Normocephalic, atraumatic. PERRL, EOM intact. CARDIOVASCULAR: Normal S1, S2. Regular rate and rhythm. PULMONARY: Clear to auscultation bilaterally. ABDOMEN: Protuberant abdomen Soft, non-distended, non-tender. EXTREMITIES: Unable to move left leg due to pain, erythematous left LE. Chronic venous stasis and chronic edema in both legs. Normal ROM in all four extremities. No gross deformities. SKIN: Warm, dry. No rash NEUROLOGICAL: Alert. Conversive. Poor historian. No focal neurological deficits. 05/18/20 00:44 - Medical Decision Making 05/18/20 01:01 obese 85 yo female living at [facility] for left hip and leg pain but denies any trauma she has left leg cellulitis , and the Duplex doppler is NEGAITVE for any dvt in that leg she has CAROLYN so CTA chest not obtained, We had planned on cancelling the d dimer but it was done inadvertently and was elevated. The pt denies any shortness of breath Discharge - Discharge Information Problems reviewed: Yes - Discharge Information Clinical Impression/Diagnosis: Intractable pain Cellulitis Qualifiers: Site of cellulitis: extremity Site of cellulitis of extremity: lower extremity Laterality: left Qualified Code(s): L03.116 - Cellulitis of left lower limb Condition: Fair
--- NOTE | 2020-05-18 02:40 | HP ---
CHIEF COMPLAINT: left hip pain PCP: Tommy HISTORY OF PRESENT ILLNESS: Pt is an 85 y/o female with COPD (on 2L O2 at home), CAD s/p NSTEMI and stents, ?diastolic CHF, HLD, IDDM, GERD, anemia, and left eye blindness who presents from nursing facility with 2 days of left hip pain. She reports when she was getting into bed the last 2 days she has felt a sharp anterior hip pain which radiates to the medial knee. It is 7-8/10 in intensity when still and "greater than 10" with movement. It is slightly more comfortable when she las on her left side. There is also pain in her lower leg but is unable to characterize it. She reports not being able to move her left knee the last 2 days, not just because of pain. She did not take anything for pain. She denies numbness or tingling. Today she saw Dr. Hernandez for her chronic LE wounds and felt the sharp pain again when getting back into bed at the facility then presented to the ED. ER course was notable for: (1) Cr 1.8 (2) U/S left LE negative for DVT (3) morphine, Ofirmev, ceftriaxone, vancomycin PAST MEDICAL HISTORY: COPD (on 2L O2 at home) CAD s/p NSTEMI and stents ?diastolic CHF HLD IDDM GERD anemia left eye blindness PAST SURGICAL HISTORY: cholecystectomy right hip replacement stents Social History: Smoking: denies Alcohol: denies Drugs: denies Allergies No Known Drug Allergies Allergy (Verified 05/17/20 19:32) TOMATO SAUCE ONLY Allergy (Uncoded 05/17/20 19:32) HOME MEDICATIONS: Home Medications Medication Instructions Recorded Acetaminophen [Tylenol] 650 mg PO BID PRN 08/07/17 Ascorbic Acid [Vitamin C -] 500 mg PO DAILY 08/07/17 Atorvastatin Ca [Lipitor] 40 mg PO HS 08/07/17 Bacitracin - [Bacitracin Topical 1 applic TP PRN PRN 08/07/17 Ointment -] Gabapentin 300 mg PO BID 08/07/17 Loratadine [Claritin] 10 mg PO DAILY 08/07/17 Multivitamin [One Daily] 1 each PO DAILY 08/07/17 Pantoprazole Sodium 40 mg PO BID 08/07/17 Furosemide [Lasix -] 40 mg PO BID #14 tablet MDD 2 08/14/17 Tamsulosin HCl [Flomax -] 0.4 mg PO DAILY@0830 #30 08/14/17 cap.er.24h MDD 1 Docusate Sodium [Colace -] 100 mg PO BID capsule 12/13/18 Insulin Sliding Scale [Novolog 1 vial SQ ACHS units 12/13/18 Vial Sliding Scale -] Alendronate Sodium [Binosto] 70 mg PO WEEKLY 05/17/20 Aspirin [ASA -] 1 tab PO DAILY 05/17/20 Brinzolamide/Brimonidine Tart 1 drop OS DAILY 05/17/20 [Simbrinza 1%-0.2% Eye Drops] Erythromycin 0.5% Eye Ointment 1 applic OS DAILY 05/17/20 [Erythromycin 0.5% Eye Ointment -] Isosorbide Mononitrate [Imdur -] 30 mg PO DAILY 05/17/20 Metformin HCl [Glucophage] 500 mg PO DAILY 05/17/20 Metolazone 2.5 mg PO DAILY 05/17/20 Tizanidine HCl 2 mg PO BID 05/17/20 Valacyclovir HCl [Valacyclovir] 1,000 mg PO BID 05/17/20 REVIEW OF SYSTEMS see HPI PHYSICAL EXAMINATION Vital Signs - 24 hr 05/17/20 19:29 Temperature 97.9 F Pulse Rate 81 Respiratory 16 Rate Blood Pressure 110/52 L O2 Sat by Pulse 96 Oximetry (%) GENERAL: Groggy, but arousable and alert, in no acute distress. HEAD: Normal with no signs of trauma. EYES: PERRL, EOMI. EARS, NOSE, THROAT: Ears normal, nares patent, moist mucous membranes. NECK: Normal range of motion. LUNGS: CTAB, no wheezes or crackles. HEART: RRR, LUSB 3/6 systolic murmur. ABDOMEN: Soft, epigastric/supraumbilical tender to touch, umbilical hernia, normal bowel sounds. UPPER EXTREMITIES: Warm, well-perfused. No peripheral edema. LOWER EXTREMITIES: Warm, well-perfused. B/l below knees erythematous with flaky and tight skin, small superficial ulcerations on anterolateral surface of right leg. Left anterior hip tender to palpation and along to medial aspect of knee. Pt unable to move leg as she is laying on her left side for comfort. NEUROLOGICAL: Cranial nerves II-XII grossly intact. Normal speech. PSYCHIATRIC: Cooperative. Good eye contact. Appropriate mood and affect. SKIN: Warm, dry, normal turgor. Laboratory Results - last 24 hr 05/17/20 05/17/20 05/17/20 01:27 21:10 21:10 WBC 10.8 H RBC 3.60 Hgb 12.2 Hct 35.2 MCV 97.9 H MCH 33.8 H MCHC 34.6 RDW 15.9 H Plt Count 215 MPV 9.4 Absolute Neuts (auto) 8.4 H Neutrophils % 77.8 Lymphocytes % 11.1 D Monocytes % 7.8 Eosinophils % 2.2 Basophils % 1.1 Nucleated RBC % 0 ESR D-Dimer 1166 H Sodium Potassium Chloride Carbon Dioxide Anion Gap BUN Creatinine Est GFR (CKD-EPI)AfAm Est GFR (CKD-EPI)NonAf Random Glucose Calcium Total Bilirubin AST ALT Alkaline Phosphatase Creatine Kinase 123 Troponin I < 0.02 Total Protein Albumin Blood Type Antibody Screen 05/17/20 05/17/20 05/17/20 21:10 21:14 21:14 WBC RBC Hgb Hct MCV MCH MCHC RDW Plt Count MPV Absolute Neuts (auto) Neutrophils % Lymphocytes % Monocytes % Eosinophils % Basophils % Nucleated RBC % ESR Cancelled D-Dimer Sodium 138 Potassium 3.8 Chloride 95 L Carbon Dioxide 35 H Anion Gap 8 BUN 52.6 H Creatinine 1.8 H Est GFR (CKD-EPI)AfAm 28.82 Est GFR (CKD-EPI)NonAf 24.87 Random Glucose 185 H Calcium 8.2 L Total Bilirubin 0.8 AST 39 H ALT 21 Alkaline Phosphatase 90 Creatine Kinase Troponin I Total Protein 6.6 Albumin 3.1 L Blood Type A POSITIVE Antibody Screen Negative ASSESSMENT/PLAN: Pt is an 85 y/o female with COPD (on 2L O2 at home), CAD s/p NSTEMI and stents, ?diastolic CHF, HLD, IDDM, GERD, anemia, and left eye blindness who presents from nursing facility with 2 days of left hip pain. #left hip and leg pain -prelim read does not reveal hip fracture or knee fracture; negative U/S for DVT -possibly sartorius muscle strain -scheduled Ofirmev TID for pain control -morphine 2mg Q4H IV PRN breakthrough pain -PT -wait for final read, may need to consider ortho if x-ray has findings or pain does not improve #CAROLYN -Cr 1.8, baseline low 1s, likely pre-renal -has possible hx CHF, she is on Lasix -hold Lasix -encourage PO hydration -UA #COPD -lungs clear on exam -continue O2 -albuterol inhaler until meds are confirmed #IDDM -SSI -BGMs #diastolic CHF -hold Lasix DVT Ppx heparin FEN PO fluids monitor Cr diabetic/sodium diet dispo med/surg FULL CODE Family Medical History Family History: Unable to Obtain Visit type - Medication Review Med list reviewed for High Risk Meds patients 65 and older: Yes - Emergency Visit Emergency Visit: Yes ED Registration Date: 05/17/20 Care time: The patient presented to the Emergency Department on the above date and was hospitalized for further evaluation of their emergent condition. - New Patient This patient is new to me today: Yes Date on this admission: 05/18/20 - Critical Care Critical Care patient: No ATTENDING PHYSICIAN STATEMENT I saw and evaluated the patient. I reviewed the resident's note and discussed the case with the resident. I agree with the resident's findings and plan as documented. SUBJECTIVE: OBJECTIVE: ASSESSMENT AND PLAN:
[2020-05-18] MEDS ORDERED: MORPHINE SULFATE 2 MG/ML VIAL ONE ×2 (03:19→09:18)
[2020-05-18] MEDS: MORPHINE SULFATE 2 MG/ML VIAL IVPUSH PRN ×2 (03:26→09:30)
[2020-05-18] MEDS ORDERED: ALBUTEROL SO4 HFA INHALER IH PRN (04:04)
[2020-05-18] MEDS ORDERED: HEPARIN NA (PORCINE) 5,000 UNITS/ML 1ML VIAL ONE (06:40)
[2020-05-18] MEDS: HEPARIN NA (PORCINE) 5,000 UNITS/ML 1ML VIAL SQ SCH ×2 (06:48→14:01)
[2020-05-18] MEDS: ACETAMINOPHEN 1000 MG/100 ML VIAL (NON FORMULARY) IVPB SCH ×2 (06:48→14:00)
[2020-05-18 07:16] LABS: BASO % 0.1 % (0-2.0); EOS % 1.8 % (0-4.5); HEMOGLOBIN 12.5 GM/dL (10.7-15.3); LYMPH % 11.6 % (8-40); MCH 33.2 pg (25.7-33.7); MCHC 33.8 g/dl (32.0-36.0); MEAN CELL VOLUME 98.1 fl (80-96); MEAN PLT VOLUME 9.3 fl (7.5-11.1); NEUT % 77.5 % (42.8-82.8); PLATELET COUNT 197 K/MM3 (134-434); RBC 3.77 M/mm3 (3.60-5.2); RDW 16.1 % (11.6-15.6); WHITE BLOOD COUNT 9.3 K/mm3 (4.0-10.0)
[2020-05-18 07:23] LABS: ALBUMIN 3.1 g/dl (3.4-5.0); BILIRUBIN,TOTAL 0.6 mg/dL (0.2-1); BLOOD UREA NITROGEN 48.8 mg/dL (7-18); CALCIUM 8.3 mg/dL (8.5-10.1); CREATININE 1.7 mg/dL (0.55-1.3); MAGNESIUM 2.4 mg/dL (1.8-2.4); PHOSPHOROUS 2.4 mg/dL (2.5-4.9); TOT PROT 6.7 g/dl (6.4-8.2)
[2020-05-18] MEDS: INSULIN SLIDING SCALE (NOVOLOG) 1 VIAL SQ SCH ×3 (07:42→17:14)
[2020-05-18] MEDS ORDERED: POTASSIUM CHLORIDE ORAL LIQUID 20 MEQ/15 ML PO ONE (08:10)
[2020-05-18] MEDS ORDERED: NAPH,MB-DB/K PH,MBDB POWDER PACKET PO ONE (08:10)
[2020-05-18] MEDS ORDERED: POTASSIUM CHLORIDE ORAL LIQUID 20 MEQ/15 ML ONE (09:18)
[2020-05-18] MEDS ORDERED: NAPH,MB-DB/K PH,MBDB POWDER PACKET ONE (09:18)
[2020-05-18] MEDS ORDERED: CEFTRIAXONE 1 GM/50 ML BAG ONE (09:19)
[2020-05-18] MEDS: CEFTRIAXONE 1 GM in DEXTROSE 5%-WATER - 50 ML IVPB SCH (10:00)
[2020-05-18] MEDS: POLYETHYLENE GLYCOL 3350 119 GM BTL PO SCH (10:00)
[2020-05-18] MEDS ORDERED: ENOXAPARIN NA (PORCINE) 30 MG/0.3 ML DISP.SYRIN SQ SCH (10:00)
[2020-05-18] MEDS ORDERED: SODIUM CHLORIDE 1,000 ML IV SCH (11:15)
--- NOTE | 2020-05-18 11:15 | PN ---
Physical Exam: SUBJECTIVE: Patient seen and examined at bedside. She endorses pain at her left hip that radiates down to her knee. Ongoing for two days, without clear inciting or palliative features. Denies prior occurrence of similar symptoms. Wheelchair bound at baseline. Denies subjective fevers, chills. OBJECTIVE: Vital Signs Period Temp Pulse Resp BP Sys/Emerson Pulse Ox Last 24 Hr 97.7 F-98.4 F 59-81 16-18 105-128/31-60 93-96 GENERAL: The patient is awake, alert, and fully oriented, in no acute distress. HEAD: Normocephalic, atraumatic. EYES: PERRL, extraocular movements intact, sclera anicteric, conjunctiva clear. ENT: Oropharynx clear, without erythema or exudates. Moist mucous membranes. NECK: Trachea midline, full range of motion. Supple without lymphadenopathy. LUNGS: Breath sounds equal, clear to auscultation bilaterally. No wheezes, no crackles. No accessory muscle use. HEART: Regular rate and rhythm. S1, S2 with holosystolic murmur auscultated. ABDOMEN: Soft, nondistended, nontender to light and deep palpation x4 quadrants. No rebound tenderness, no guarding. Normoactive bowel sounds x4 quadrants. No hepatosplenomegaly, no masses appreciated. Small umbilical hernia soft, easily reducible, nontender. EXTREMITIES: Left lower extremity passive range of motion limited by pain at hi p. Left lower extremity tenderness to palpation diffusely, worst overlying medial abductors. Right lower extremity strength, and range of motion preserved. 1 dorsalis pedis pulses bilaterally. 1+ edema bilateral lower extremities. Warm, well-perfused. NEUROLOGICAL: Cranial nerves II through XII grossly intact. Normal speech. PSYCH: Normal mood, normal affect upon my encounter. SKIN: Right anterior lower extremity with few 1cm ulcerations, nondraining. Erythema bilateral lower extremities, with chronic venous stasis changes. Laboratory Results - last 24 hr 05/17/20 05/17/20 05/17/20 01:27 21:10 21:10 WBC 10.8 H RBC 3.60 Hgb 12.2 Hct 35.2 MCV 97.9 H MCH 33.8 H MCHC 34.6 RDW 15.9 H Plt Count 215 MPV 9.4 Absolute Neuts (auto) 8.4 H Neutrophils % 77.8 Lymphocytes % 11.1 D Monocytes % 7.8 Eosinophils % 2.2 Basophils % 1.1 Nucleated RBC % 0 ESR D-Dimer 1166 H Sodium Potassium Chloride Carbon Dioxide Anion Gap BUN Creatinine Est GFR (CKD-EPI)AfAm Est GFR (CKD-EPI)NonAf POC Glucometer Random Glucose Calcium Phosphorus Magnesium Total Bilirubin AST ALT Alkaline Phosphatase Creatine Kinase 123 Troponin I < 0.02 Total Protein Albumin Blood Type Antibody Screen 05/17/20 05/17/20 05/17/20 21:10 21:14 21:14 WBC RBC Hgb Hct MCV MCH MCHC RDW Plt Count MPV Absolute Neuts (auto) Neutrophils % Lymphocytes % Monocytes % Eosinophils % Basophils % Nucleated RBC % ESR Cancelled D-Dimer Sodium 138 Potassium 3.8 Chloride 95 L Carbon Dioxide 35 H Anion Gap 8 BUN 52.6 H Creatinine 1.8 H Est GFR (CKD-EPI)AfAm 28.82 Est GFR (CKD-EPI)NonAf 24.87 POC Glucometer Random Glucose 185 H Calcium 8.2 L Phosphorus Magnesium Total Bilirubin 0.8 AST 39 H ALT 21 Alkaline Phosphatase 90 Creatine Kinase Troponin I Total Protein 6.6 Albumin 3.1 L Blood Type A POSITIVE Antibody Screen Negative 05/18/20 05/18/20 05/18/20 05:26 05:26 07:38 WBC 9.3 RBC 3.77 Hgb 12.5 Hct 37.0 MCV 98.1 H MCH 33.2 MCHC 33.8 RDW 16.1 H Plt Count 197 MPV 9.3 Absolute Neuts (auto) 7.2 Neutrophils % 77.5 Lymphocytes % 11.6 Monocytes % 9.0 Eosinophils % 1.8 Basophils % 0.1 Nucleated RBC % 0 ESR D-Dimer Sodium 137 Potassium 3.0 L Chloride 93 L Carbon Dioxide 35 H Anion Gap 9 BUN 48.8 H Creatinine 1.7 H Est GFR (CKD-EPI)AfAm 30.89 Est GFR (CKD-EPI)NonAf 26.65 POC Glucometer 123 Random Glucose 152 H Calcium 8.3 L Phosphorus 2.4 L Magnesium 2.4 Total Bilirubin 0.6 AST 20 ALT 18 Alkaline Phosphatase 102 Creatine Kinase Troponin I Total Protein 6.7 Albumin 3.1 L Blood Type Antibody Screen 05/18/20 10:48 WBC RBC Hgb Hct MCV MCH MCHC RDW Plt Count MPV Absolute Neuts (auto) Neutrophils % Lymphocytes % Monocytes % Eosinophils % Basophils % Nucleated RBC % ESR D-Dimer Sodium Potassium Chloride Carbon Dioxide Anion Gap BUN Creatinine Est GFR (CKD-EPI)AfAm Est GFR (CKD-EPI)NonAf POC Glucometer 158 Random Glucose Calcium Phosphorus Magnesium Total Bilirubin AST ALT Alkaline Phosphatase Creatine Kinase Troponin I Total Protein Albumin Blood Type Antibody Screen Active Medications Generic Name Dose Route Start Last Admin Trade Name Freq PRN Reason Stop Dose Admin Acetaminophen 1,000 mg 05/18/20 06:00 05/18/20 06:48 Ofirmev Injection - IVPB 05/19/20 06:01 1,000 mg TID JOSE ELIAS Administration Albuterol Sulfate 2 puff 05/18/20 04:04 Ventolin Hfa Inhaler - IH Q4H PRN SHORT OF BREATH/WHEEZING Heparin Sodium (Porcine) 5,000 unit 05/18/20 06:00 05/18/20 06:48 Heparin - SQ 5,000 unit TID JOSE ELIAS Administration Ceftriaxone Sodium 1 gm/ 50 mls @ 100 mls/hr 05/18/20 10:00 05/18/20 10:00 Dextrose IVPB 100 mls/hr DAILY JOSE ELIAS Administration Sodium Chloride 1,000 mls @ 75 mls/hr 05/18/20 11:15 Normal Saline - IV ASDIR JOSE ELIAS Insulin Aspart 1 vial 05/18/20 07:00 05/18/20 11:02 Novolog Vial Sliding Scale - SQ 2 units ACHS JOSE ELIAS Administration Protocol Morphine Sulfate 2 mg 05/18/20 02:32 05/18/20 03:26 Morphine Sulfate IVPUSH 2 mg Q4H PRN Administration PAIN LEVEL 6-10 Polyethylene Glycol 17 gm 05/18/20 10:00 05/18/20 10:00 Miralax (For Daily Use) - PO 17 g DAILY JOSE ELIAS Administration ASSESSMENT/PLAN: Patient is an 85 year old female with history of COPD (on home oxygen 2L), coronary artery disease (s/p stents), hyperlipidemia, diabetes mellitus (insulin dependnet), gastro-esophageal reflux, left eye blindness presents with complaint of left lower extremity pain. Left lower extremity pain -CT pelvis, left lower extremity does nor reveal acute fracture, or pathology to explain patient's symptoms -Duplex bilateral lower extremities negative for DVT -Will trial Tizanidine, Acetaminophen -Physical therapy evaluation -Orthopedic surgery consult (Dr. Gong) -Fall precautions Cellulitis -Left lower extremity appears erythematous, however without significant calor. Right lower extremity ulcerations noted, without purulence or drainage. -Continue Ceftriaxone. -ID recommendations (Dr. Pat) appreciated. Acute kidney injury -BUN 48, Cr 1.7 -Patient appears clinically dry. -IV normal saline at 75mL/ hour. Will hold home diuretics, ARB for now -Monitor intake, output Coronary artery disease -Continue home Aspirin, Atorvastatin, Isosorbide mononitrate Heart failure with preserved ejection fraction -Holding home Lasix, Metolazone in setting of CAROLYN Diabetes mellitus -Insulin sliding scale ACHS -Fingerstick blood glucose ACHS FEN -IV normal saline at 75mL/ hour x1 Liter -Follow BMP -Diabetic diet, sodium modification Prophylaxis -Heparin 5000units subq TID Disposition -Continue care in medical- surgical floor Visit type - Emergency Visit Emergency Visit: Yes ED Registration Date: 05/17/20 Care time: The patient presented to the Emergency Department on the above date and was hospitalized for further evaluation of their emergent condition. - New Patient This patient is new to me today: Yes Date on this admission: 05/18/20 - Critical Care Critical Care patient: No - Discharge Referral Referred to [facility] Med [facility] No - Medication Review Med list reviewed for High Risk Meds patients 65 and older: Yes ATTENDING PHYSICIAN STATEMENT I saw and evaluated the patient. I reviewed the resident's note and discussed the case with the resident. I agree with the resident's findings and plan as documented. SUBJECTIVE: OBJECTIVE: ASSESSMENT AND PLAN:
--- NOTE | 2020-05-18 14:00 | PN ---
Teaching Attending Note Name of Resident: Greg Gomez ATTENDING PHYSICIAN STATEMENT I saw and evaluated the patient. I reviewed the resident's note and discussed the case with the resident. I agree with the resident's findings and plan as documented. SUBJECTIVE: Seen and examined at bedside. Patient with severe left hip pain radiating down to the left knee with soft tissue tenderness. CT of the pelvis and left lower extremity ordered, orthopedics consulted OBJECTIVE Last Vital Signs Temp Pulse Resp BP Pulse Ox 98.4 F 67 18 105/31 L 96 05/18/20 07:48 05/18/20 07:48 05/18/20 07:48 05/18/20 07:48 05/18/20 08:12 PE: Per resident note Labs/Imaging: reviewed ASSESSMENT/PLAN 85-year-old female with a history of NSTEMI status post stent, chronic diastolic CHF, COPD on 2 L nasal cannula, HLD, IDDM, venous insufficiency, chronic bilateral lower extremity wounds presents with severe hip and knee pain, CAROLYN, and possible cellulitis #Left hip pain Patient with highly limited passive movement due to pain and severe tenderness all around the upper left lower extremity No known trauma Hip x-ray is unremarkable Obtain CT of the pelvis and left lower extremity Orthopedics consultation -pain control #Lower extremity cellulitis -Continue ceftriaxone -blood cx not drawn #CAROLYN Likely prerenal given elevated BUN to creatinine ratio Continue normal saline x1L given CHF Hold nephrotoxic medications #Diastolic CHF -hold lasix -hold metolazone #HTN -cont imdur #CAD -cont asa/statin
[2020-05-18] MEDS: TIZANIDINE HCL 2 MG TABLET PO SCH (17:00)
[2020-05-18] MEDS ORDERED: VANCOMYCIN HCL 1,250 MG in DEXTROSE 5%-WATER - 250 ML IVPB ONE (18:00)
--- NOTE | 2020-05-18 18:03 | CON.ORTH ---
Consult Consult Specialty:: Orthopedic Surgery - History of Present Illness Chief Complaint: Left leg pain History of Present Illness: This is an 85 yo F with PMHx of cellulitis and osteoarthritis of the bilateral lower extremities who presented to ED for Left LE pain. Denies any trauma or injury prior to onset of pain. States pain is mostly to left hip with radiation into her groin and left lower extremity pain "where the blisters are". Patient ambulates with a walker at baseline. Denies any numbness, tingling to toes. 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: Peripheral Neuropathy Cardio/Vascular: Yes: CAD, CHF, HTN, RI (10/02/2015 resulting in a single stent insertion) Gastrointestinal: Yes: Diverticulosis, Peptic Ulcer Disease, Other (colon polyp) Hepatobiliary: Yes: Cholecystitis (prior cholecystitis s/p perc roxana tube from 11/2013-02/2014), Choledocholithiasis (resolved spontaneously) Renal/: Yes: Renal Failure (on prior admission- resolved) Rheumatology: Yes: Gout Endocrine: Yes: Diabetes Mellitus (c/b peripheral neuropathy) Dermatology: Yes: 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 [employer] Worker History of Recent Travel: No Home Medications - Allergies Allergies/Adverse Reactions: Allergies Allergy/AdvReac Type Severity Reaction Status Date / Time No Known Drug Allergies Allergy Verified 05/17/20 19:32 TOMATO SAUCE ONLY Allergy Uncoded 05/17/20 19:32 - Home Medications Home Medications: Ambulatory Orders Acetaminophen [Tylenol] 650 mg PO BID PRN 08/07/17 Ascorbic Acid [Vitamin C -] 500 mg PO DAILY 08/07/17 Atorvastatin Ca [Lipitor] 40 mg PO HS 08/07/17 Bacitracin - [Bacitracin Topical Ointment -] 1 applic TP PRN PRN 08/07/17 Gabapentin 300 mg PO BID 08/07/17 Loratadine [Claritin] 10 mg PO DAILY 08/07/17 Multivitamin [One Daily] 1 each PO DAILY 08/07/17 Pantoprazole Sodium 40 mg PO BID 08/07/17 Furosemide [Lasix -] 40 mg PO BID #14 tablet MDD 2 08/14/17 Tamsulosin HCl [Flomax -] 0.4 mg PO DAILY@0830 #30 cap.er.24h MDD 1 08/14/17 Docusate Sodium [Colace -] 100 mg PO BID capsule 12/13/18 Insulin Sliding Scale [Novolog Vial Sliding Scale -] 1 vial SQ ACHS units 12/13/18 Alendronate Sodium [Binosto] 70 mg PO WEEKLY 05/17/20 Aspirin [ASA -] 1 tab PO DAILY 05/17/20 Brinzolamide/Brimonidine Tart [Simbrinza 1%-0.2% Eye Drops] 1 drop OS DAILY 05/17/20 Erythromycin 0.5% Eye Ointment [Erythromycin 0.5% Eye Ointment -] 1 applic OS DAILY 05/17/20 Isosorbide Mononitrate [Imdur -] 30 mg PO DAILY 05/17/20 Metformin HCl [Glucophage] 500 mg PO BID 05/17/20 Metolazone 2.5 mg PO DAILY 05/17/20 Tizanidine HCl 2 mg PO BID 05/17/20 Valacyclovir HCl [Valacyclovir] 1,000 mg PO BID 05/17/20 Review of Systems Findings/Remarks: Left hip and lower leg pain Physical Exam for Ortho Vital Signs: Vital Signs Temperature 98.4 F 05/18/20 13:25 Pulse Rate 68 05/18/20 13:25 Respiratory Rate 18 05/18/20 13:25 Blood Pressure 114/41 L 05/18/20 13:25 O2 Sat by Pulse Oximetry (%) 96 05/18/20 13:25 Constitutional: Yes: Well Nourished, No Distress, Calm Labs: CBC, BMP 05/18/20 05:26 05/18/20 05:26 - Lower Extremity Hip: Yes: Left (No skin lesions. No swelling. Compartments soft. No pain with log roll. Tenderness to palpation of anterior thigh. NVID.) Knee: Yes: Left (Bilateral lower legs are swollen, erythematous, warm, flaky with small superficial ulcerations. Left knee have no swelling. Tenderness to palpation of medial more than lateral joint line. Minimal pain with passive ROM of knee. NVID.) Imaging - Results X-ray: Report Reviewed, Image Reviewed (Left hip and pelvis radiographs show moderate dgenerative changes without evidence of fracture or acute injury. Left knee radiographs show moderate to severe degenerative changes. No fracture or acute injury.) Cat Scan: Report Reviewed, Image Reviewed (Pelvis CT shows no acute fracture, dislocation or acute injury. Degenerative changes seen to left hip. Right hip hardware in place.) Ultrasound: Report Reviewed (US of left LE negative for DVT) Assessment/Plan 85 yo F with PMHx of cellulitis and osteoarthritis of the bilateral lower extremities who presented to ED for Left LE pain. -Imaging of pelvis and left knee are negative for acute injury. Moderate to severe degenerative changes seen -US of left LE negative for DVT -Patient's symptoms, PE and imaging are most consistent with DJD -Probable cellulitis of lower legs bilaterally -Recommend pain control while inpatient -WBAT with assistive device -F/u outpatient for further management -Consult again as needed.
--- NOTE | 2020-05-18 22:21 | PN ---
Progress Note (short form) - Note Progress Note: ID DICTATED BILATERAL LE CELLULITIS FEVER/ LEUKOCYTOSIS R/O SEPSIS AWAIT C/S EMPIRIC CEFTRIAXONE/ STAT DOSE VANCOMYCIN
[2020-05-19] MEDS: DOCUSATE SODIUM 100 MG CAPSULE (FP) PO SCH ×3 (00:27→22:14)
[2020-05-19] MEDS: PANTOPRAZOLE 40 MG TABLET PO SCH ×3 (00:28→22:14)
[2020-05-19] MEDS: HEPARIN NA (PORCINE) 5,000 UNITS/ML 1ML VIAL SQ SCH ×4 (00:28→22:14)
[2020-05-19] MEDS: ATORVASTATIN CA 40 MG TABLET (FP) PO SCH ×2 (00:28→22:14)
[2020-05-19] MEDS: TIZANIDINE HCL 2 MG TABLET PO SCH ×3 (00:31→23:44)
[2020-05-19] MEDS: ACETAMINOPHEN 1000 MG/100 ML VIAL (NON FORMULARY) IVPB SCH ×2 (00:31→06:53)
[2020-05-19] MEDS: GABAPENTIN 300 MG CAPSULE PO SCH ×3 (00:32→22:14)
[2020-05-19] MEDS: INSULIN SLIDING SCALE (NOVOLOG) 1 VIAL SQ SCH ×5 (00:51→22:13)
--- NOTE | 2020-05-19 07:36 | CONS ---
DATE OF CONSULTATION: DATE OF DICTATION: 05/18/2020 INFECTIOUS DISEASE CONSULTATION HISTORY OF PRESENT ILLNESS: The patient is an 85-year-old female who is evaluated for bilateral lower extremity cellulitis. She has a history of oxygen-dependent COPD and coronary artery disease. She was admitted to the hospital with complaints of hip pain radiating to the medial knee as well as pain in her lower extremities bilaterally. She presented to the emergency room where she was evaluated. She was found to have erythema involving both lower extremities. Her course was notable for elevated white blood cell count and fever. She denies any traumatic injury to her lower extremities. No insect or animal bites or scratches. On review of her previous cultures she has had no multidrug-resistant organisms in the past. PAST MEDICAL HISTORY: Positive for cellulitis of the lower extremities bilaterally, COPD, coronary artery disease, congestive heart failure, hyperlipidemia, diabetes mellitus, gastroesophageal reflux. PAST SURGICAL HISTORY: Status post cholecystectomy, status post coronary artery stent. ALLERGIES: No known allergies. MEDICATIONS: Include ceftriaxone, vancomycin, Claritin, albuterol, Imdur, aspirin, Neurontin, morphine, Protonix. SOCIAL HISTORY: She lives in an assisted living facility. Nonsmoker, nondrinker. SYSTEMS REVIEW: Neurologic: No loss of consciousness, seizure activity, focal weakness. Cardiac: Negative chest pain or palpitations. Respiratory: Negative cough or sputum production. Gastrointestinal: Negative vomiting or diarrhea. Genitourinary: Negative for urinary tract infection. LABORATORY DATA: White count 9.3, hematocrit 37.0, platelet count 197. Creatinine 1.7. Urinalysis: Leukocyte esterase 2+. Cultures are pending. PHYSICAL EXAMINATION:General: She is awake and alert. She is not acutely toxic appearing. The patient is obese. Vital Signs: Temperature 99.5, blood pressure 152/63, pulse 94, regular, respirations 22 per minute. HEENT: Sclerae are anicteric. Cardiac: Heart sounds S1-S2. Lungs: Clear. Abdomen: Is soft, nontender. Extremities: Positive bilateral lower extremity erythema extending from below the knees to the feet bilaterally. Superficial ulcerations present without purulent drainage. IMPRESSION: 1. Bilateral lower extremity cellulitis. 2. Fever with leukocytosis, rule out sepsis secondary to skin sores. 3. Diabetes mellitus. RECOMMENDATIONS: Obtain blood cultures. Continue empiric antibiotic coverage with ceftriaxone plus stat dose vancomycin. Further recommendations pending culture results. Will follow. Thank you for the kind referral. MARIBELL HERNANDEZ M.D. [id number]
[2020-05-19 08:32] LABS: HEMATOCRIT 35.1 % (32.4-45.2); HEMOGLOBIN 12.1 GM/dL (10.7-15.3); MCH 34.1 pg (25.7-33.7); MCHC 34.5 g/dl (32.0-36.0); MEAN CELL VOLUME 98.8 fl (80-96); MEAN PLT VOLUME 9.8 fl (7.5-11.1); PLATELET COUNT 205 K/MM3 (134-434); RBC 3.56 M/mm3 (3.60-5.2); RDW 16.5 % (11.6-15.6); WHITE BLOOD COUNT 8.1 K/mm3 (4.0-10.0)
[2020-05-19 08:56] LABS: BLOOD UREA NITROGEN 35.5 mg/dL (7-18); CALCIUM 7.7 mg/dL (8.5-10.1); MAGNESIUM 2.4 mg/dL (1.8-2.4); POTASSIUM 3.2 mmol/L (3.5-5.1)
[2020-05-19 09:01] LABS: CREATININE 1.2 mg/dL (0.55-1.3)
[2020-05-19] MEDS ORDERED: PT OWN MED DRAWER 7, Y5N ONE ×3 (09:37→21:11)
[2020-05-19] MEDS ORDERED: DEXTROSE 5%-WATER - 50 ML IVPB ONE (09:37)
[2020-05-19] MEDS ORDERED: cefTRIAXone SODIUM 1 GM VIAL ONE (09:37)
[2020-05-19] MEDS ORDERED: PATIENT'S OWN MEDICATION (NON-FORMULARY) (Brinzolamide/Brimonidine Tart [Simbrinza 1%-0.2% OS SCH (10:00)
--- NOTE | 2020-05-19 10:01 | EKG ---
Test Reason : Blood Pressure : / mmHG Vent. Rate : 088 BPM Atrial Rate : 312 BPM P-R Int : 000 ms QRS Dur : 086 ms QT Int : 358 ms P-R-T Axes : 000 038 -01 degrees QTc Int : 433 ms POOR DATA QUALITY, INTERPRETATION MAY BE ADVERSELY AFFECTED NORMAL SINUS RHYTHM WHEN COMPARED WITH ECG OF 09-MAR-2020 18:24, MINIMAL CRITERIA FOR INFERIOR INFARCT ARE NOW PRESENT ST NOW DEPRESSED IN INFERIOR LEADS NONSPECIFIC T WAVE ABNORMALITY NOW EVIDENT IN INFERIOR LEADS Confirmed by Stanislav Schreiber ([id number]) on 05/19/2020 10:01:23 AM Referred By: Confirmed By:Stanislav Schreiber
[2020-05-19] MEDS: ASPIRIN 81 MG CHEWABLE TABLETS PO SCH (10:03)
[2020-05-19] MEDS: LORATADINE 10 MG TABLET PO SCH (10:04)
[2020-05-19] MEDS: POLYETHYLENE GLYCOL 3350 119 GM BTL PO SCH (10:05)
[2020-05-19] MEDS: ISOSORBIDE MONONITRATE 30 MG TAB.SR.24H (FP) PO SCH (10:05)
[2020-05-19] MEDS: MULTIVITAMINS (DAILY MVI) TABLET (FP) PO SCH (10:06)
[2020-05-19] MEDS: CEFTRIAXONE 1 GM in DEXTROSE 5%-WATER - 50 ML IVPB SCH (10:06)
[2020-05-19] MEDS: ASCORBIC ACID 500 MG TABLET (FP) PO SCH (10:07)
[2020-05-19] MEDS ORDERED: POTASSIUM CHLORIDE TABS 20 MEQ TABLET.ER (FP) PO ONE (12:00)
--- NOTE | 2020-05-19 14:10 | PN ---
Teaching Attending Note Name of Resident: Abdoul Osborne ATTENDING PHYSICIAN STATEMENT I saw and evaluated the patient. I reviewed the resident's note and discussed the case with the resident. I agree with the resident's findings and plan as documented. SUBJECTIVE: Seen and examined at bedside. still with significant LE pain but improving. Re ports decreased proprioception OBJECTIVE Last Vital Signs Temp Pulse Resp BP Pulse Ox 98.8 F 68 20 137/49 L 92 L 05/19/20 06:00 05/19/20 06:00 05/19/20 06:00 05/19/20 06:00 05/19/20 06:00 PE: Per resident note Labs/Imaging: reviewed ASSESSMENT/PLAN 85-year-old female with a history of NSTEMI status post stent, chronic diastolic CHF, COPD on 2 L nasal cannula, HLD, IDDM, venous insufficiency, chronic bilateral lower extremity wounds presents with severe hip and knee pain, CAROLYN, and possible cellulitis #Left hip pain Still in pain but improved mobility today. Reports impaired proprioception of LLE -repeat exam this afternoon. If continued impaired proprioception will require neuro consult No known trauma per ortho symptoms most consistent with DJD. Recommend pain control and outpt management -pain control #Lower extremity cellulitis -Continue ceftriaxone -ID on board -1 dose of vanc given yesterday -blood cx drawn after abx given #CAROLYN:improving Likely prerenal given elevated BUN to creatinine ratio fluids dc'd Hold nephrotoxic medications #Diastolic CHF -restart lasix, metolazone tomorrow #HTN -cont imdur #CAD -cont asa/statin
[2020-05-19] MEDS: MORPHINE SULFATE 2 MG/ML VIAL IVPUSH PRN (16:50)
--- NOTE | 2020-05-19 20:35 | PN ---
Physical Exam: SUBJECTIVE: Patient seen and examined at bedside. No acute events overnight. OBJECTIVE: Vital Signs Period Temp Pulse Resp BP Sys/Emerson Pulse Ox Last 24 Hr 98.1 F-99.3 F 64-75 20-22 109-137/46-54 90-93 GENERAL: NAD HEAD: AT/NC EYES: Left eye corneal clouding ENT: MMM NECK: Trachea midline, full range of motion, supple. LUNGS: Fine Rales bilateral bases HEART: RRR No MRG S1S2 ABDOMEN: Soft, NDNT EXTREMITIES: bilateral venous stasis changes, erythema lower extremities bilaterally. Not overtly warm to touch. Multiple open wounds as well RLE anterior. SILT bilaterally Laboratory Results - last 24 hr 05/17/20 05/19/20 05/19/20 01:27 00:36 06:29 WBC RBC Hgb Hct MCV MCH MCHC RDW Plt Count MPV Sodium Potassium Chloride Carbon Dioxide Anion Gap BUN Creatinine Est GFR (CKD-EPI)AfAm Est GFR (CKD-EPI)NonAf POC Glucometer 158 194 Random Glucose Calcium Phosphorus Magnesium Random Vancomycin COVID-19 (CHRISTIE) Not detected 05/19/20 05/19/20 05/19/20 07:15 07:15 07:15 WBC 8.1 RBC 3.56 L Hgb 12.1 Hct 35.1 MCV 98.8 H MCH 34.1 H MCHC 34.5 RDW 16.5 H Plt Count 205 MPV 9.8 Sodium 139 Potassium 3.2 L Chloride 100 Carbon Dioxide 31 Anion Gap 9 BUN 35.5 H Creatinine 1.2 Est GFR (CKD-EPI)AfAm 47.06 Est GFR (CKD-EPI)NonAf 40.60 POC Glucometer Random Glucose 164 H Calcium 7.7 L Phosphorus 3.0 Magnesium 2.4 Random Vancomycin 7.1 COVID-19 (CHRISTIE) 05/19/20 05/19/20 11:13 17:20 WBC RBC Hgb Hct MCV MCH MCHC RDW Plt Count MPV Sodium Potassium Chloride Carbon Dioxide Anion Gap BUN Creatinine Est GFR (CKD-EPI)AfAm Est GFR (CKD-EPI)NonAf POC Glucometer 162 154 Random Glucose Calcium Phosphorus Magnesium Random Vancomycin COVID-19 (CHRISTIE) Active Medications Generic Name Dose Route Start Last Admin Trade Name Freq PRN Reason Stop Dose Admin Albuterol Sulfate 2 puff 05/18/20 04:04 Ventolin Hfa Inhaler - IH Q4H PRN SHORT OF BREATH/WHEEZING Ascorbic Acid 500 mg 05/19/20 10:00 05/19/20 10:07 Vitamin C - PO 500 mg DAILY JOSE ELIAS Administration Aspirin 81 mg 05/19/20 10:00 05/19/20 10:03 Asa - PO 81 mg DAILY JOSE ELIAS Administration Atorvastatin Calcium 40 mg 05/18/20 22:00 05/19/20 00:28 Lipitor - PO 40 mg HS JOSE ELIAS Administration Brimonidine Tartrate 1 drop 05/19/20 22:00 Alphagan 0.2% - OS BID JOSE ELIAS Docusate Sodium 100 mg 05/18/20 22:00 05/19/20 10:04 Colace - PO 100 mg BID JOSE ELIAS Administration Dorzolamide HCl 1 drop 05/19/20 22:00 Trusopt 2% OS BID JOSE ELIAS Gabapentin 300 mg 05/18/20 22:00 05/19/20 10:05 Neurontin - PO 300 mg BID JOSE ELIAS Administration Heparin Sodium (Porcine) 5,000 unit 05/18/20 06:00 05/19/20 15:22 Heparin - SQ 5,000 unit TID JOSE ELIAS Administration Ceftriaxone Sodium 1 gm/ 50 mls @ 100 mls/hr 05/18/20 10:00 05/19/20 10:06 Dextrose IVPB 100 mls/hr DAILY JOSE ELIAS Administration Insulin Aspart 1 vial 05/18/20 07:00 05/19/20 17:21 Novolog Vial Sliding Scale - SQ 2 units ACHS JOSE ELIAS Administration Protocol Isosorbide Mononitrate 30 mg 05/19/20 10:00 05/19/20 10:05 Imdur - PO 30 mg DAILY JOSE ELIAS Administration Loratadine 10 mg 05/19/20 10:00 05/19/20 10:04 Claritin - PO 10 mg DAILY JOSE ELIAS Administration Morphine Sulfate 2 mg 05/18/20 02:32 05/19/20 16:50 Morphine Sulfate IVPUSH 2 mg Q4H PRN Administration PAIN LEVEL 6-10 Multivitamins/Minerals/Vitamin C 1 tab 05/19/20 10:00 05/19/20 10:06 Tab-A-Vit - PO 1 tab DAILY JOSE ELIAS Administration Pantoprazole Sodium 40 mg 05/18/20 22:00 05/19/20 10:06 Protonix - PO 40 mg BID JOSE ELIAS Administration Polyethylene Glycol 17 gm 05/18/20 10:00 05/19/20 10:05 Miralax (For Daily Use) - PO 17 g DAILY JOSE ELIAS Administration Tizanidine HCl 2 mg 05/18/20 15:46 05/19/20 10:06 Tizanidine Hcl PO 2 mg BID JOSE ELIAS Administration ASSESSMENT/PLAN: Patient is an 85 year old female with history of COPD (on home oxygen 2L), coronary artery disease (s/p stents), hyperlipidemia, diabetes mellitus (insulin dependnet), gastro-esophageal reflux, left eye blindness presents with complaint of left lower extremity pain. Left lower extremity pain -CT pelvis, left lower extremity does nor reveal acute fracture, or pathology to explain patient's symptoms -Duplex bilateral lower extremities negative for DVT -Will trial Tizanidine, Acetaminophen -Physical therapy evaluation -Ortho on board----> Patient's symptoms, PE and imaging are most consistent with DJD -Fall precautions Bilateral lower extremity Cellulitis -Continue Ceftriaxone. Patient also received a dose of Vancomycin yesterday. -ID on board. Recs appreciated. Monitor for fever, trend CBC Acute kidney injury -BUN 35.5, Cr 1.2. -Fluids D/C'ed Coronary artery disease -Continue home Aspirin, Atorvastatin, Isosorbide mononitrate HEFpEF -Will resume Furosemide and Metolazone tomorrow Diabetes mellitus -Insulin sliding scale ACHS -Fingerstick blood glucose ACHS FEN -No Fluids -Follow BMP -Diabetic diet, sodium modification Prophylaxis -Heparin 5000units subq TID Disposition -Continue care in medical- surgical floor Visit type - Emergency Visit Emergency Visit: Yes ED Registration Date: 05/17/20 Care time: The patient presented to the Emergency Department on the above date and was hospitalized for further evaluation of their emergent condition. - New Patient This patient is new to me today: No - Critical Care Critical Care patient: No - Discharge Referral Referred to [facility] Med P.C.: No - Medication Review Med list reviewed for High Risk Meds patients 65 and older: Yes ATTENDING PHYSICIAN STATEMENT I saw and evaluated the patient. I reviewed the resident's note and discussed the case with the resident. I agree with the resident's findings and plan as documented. SUBJECTIVE: OBJECTIVE: ASSESSMENT AND PLAN:
[2020-05-19] MEDS: DORZOLAMIDE 2% HCL OPHTHALMIC SOLUTION 10 ML BOTTLE OS SCH (22:15)
[2020-05-19] MEDS: BRIMONIDINE TARTRATE 0.2% OPHTHALMIC 5 ML BOTTLE OS SCH (22:15)
[2020-05-20] MEDS: HEPARIN NA (PORCINE) 5,000 UNITS/ML 1ML VIAL SQ SCH ×3 (05:34→21:07)
[2020-05-20] MEDS: INSULIN SLIDING SCALE (NOVOLOG) 1 VIAL SQ SCH ×4 (06:09→22:31)
[2020-05-20] MEDS ORDERED: INSULIN (NOVOLOG) ASPART 100 UNITS/ML 10ML VIAL ONE ×2 (06:48→11:19)
[2020-05-20 08:23] LABS: HEMATOCRIT 34.1 % (32.4-45.2); HEMOGLOBIN 11.4 GM/dL (10.7-15.3); MCH 32.6 pg (25.7-33.7); MCHC 33.3 g/dl (32.0-36.0); MEAN CELL VOLUME 97.8 fl (80-96); MEAN PLT VOLUME 9.2 fl (7.5-11.1); PLATELET COUNT 205 K/MM3 (134-434); RBC 3.49 M/mm3 (3.60-5.2); RDW 16.7 % (11.6-15.6); WHITE BLOOD COUNT 7.9 K/mm3 (4.0-10.0)
[2020-05-20 08:59] LABS: BLOOD UREA NITROGEN 35.6 mg/dL (7-18); CALCIUM 7.4 mg/dL (8.5-10.1); CREATININE 1.2 mg/dL (0.55-1.3); MAGNESIUM 2.5 mg/dL (1.8-2.4); PHOSPHOROUS 2.1 mg/dL (2.5-4.9); POTASSIUM 3.4 mmol/L (3.5-5.1)
[2020-05-20] MEDS ORDERED: PT OWN MED DRAWER 7, Y5N ONE ×4 (09:34→20:47)
[2020-05-20] MEDS ORDERED: cefTRIAXone SODIUM 1 GM VIAL ONE (09:34)
[2020-05-20] MEDS ORDERED: DEXTROSE 5%-WATER - 50 ML IVPB ONE (09:35)
[2020-05-20] MEDS: ASCORBIC ACID 500 MG TABLET (FP) PO SCH (09:39)
[2020-05-20] MEDS: PANTOPRAZOLE 40 MG TABLET PO SCH ×2 (09:39→21:07)
[2020-05-20] MEDS: ASPIRIN 81 MG CHEWABLE TABLETS PO SCH (09:39)
[2020-05-20] MEDS: CEFTRIAXONE 1 GM in DEXTROSE 5%-WATER - 50 ML IVPB SCH (09:39)
[2020-05-20] MEDS: DOCUSATE SODIUM 100 MG CAPSULE (FP) PO SCH ×2 (09:39→21:07)
[2020-05-20] MEDS: LORATADINE 10 MG TABLET PO SCH (09:40)
[2020-05-20] MEDS: TIZANIDINE HCL 2 MG TABLET PO SCH ×2 (09:40→21:09)
[2020-05-20] MEDS: MULTIVITAMINS (DAILY MVI) TABLET (FP) PO SCH (09:40)
[2020-05-20] MEDS: GABAPENTIN 300 MG CAPSULE PO SCH ×2 (09:40→21:08)
[2020-05-20] MEDS: ISOSORBIDE MONONITRATE 30 MG TAB.SR.24H (FP) PO SCH (09:40)
[2020-05-20] MEDS: BRIMONIDINE TARTRATE 0.2% OPHTHALMIC 5 ML BOTTLE OS SCH ×2 (09:42→21:10)
[2020-05-20] MEDS: DORZOLAMIDE 2% HCL OPHTHALMIC SOLUTION 10 ML BOTTLE OS SCH ×2 (09:42→21:09)
[2020-05-20] MEDS ORDERED: FUROSEMIDE 40 MG/4 ML INJECTABLE VIAL IVPUSH ONE ×2 (09:54→10:30)
[2020-05-20] MEDS: MORPHINE SULFATE 2 MG/ML VIAL IVPUSH PRN (09:55)
[2020-05-20] MEDS: POLYETHYLENE GLYCOL 3350 119 GM BTL PO SCH (09:55)
[2020-05-20] MEDS ORDERED: POTASSIUM CHLORIDE TABS 20 MEQ TABLET.ER (FP) PO ONE (09:56)
[2020-05-20] MEDS: METOLAZONE 2.5 MG TABLET (FP) PO SCH (11:32)
--- NOTE | 2020-05-20 13:56 | PN ---
Teaching Attending Note Name of Resident: Abdoul Osborne ATTENDING PHYSICIAN STATEMENT I saw and evaluated the patient. I reviewed the resident's note and discussed the case with the resident. I agree with the resident's findings and plan as documented. SUBJECTIVE: Seen and examined at bedside. Increased tachypnea, hypoxia, bilateral lower ext remity pain distal to the knees. Patient is fluid overloaded. Will give IV Lasix and start metolazone. No longer complaining of decreased proprioception. Pending decision by ID on treatment with vancomycin OBJECTIVE Last Vital Signs Temp Pulse Resp BP Pulse Ox 99.6 F 75 18 132/54 L 96 05/20/20 10:00 05/20/20 12:20 05/20/20 10:00 05/20/20 12:20 05/20/20 10:00 PE: Per resident note Labs/Imaging: reviewed ASSESSMENT/PLAN 85-year-old female with a history of NSTEMI status post stent, chronic diastolic CHF, COPD on 2 L nasal cannula, HLD, IDDM, venous insufficiency, chronic bilateral lower extremity wounds presents with severe hip and knee pain, CAROLYN, and possible cellulitis #Left hip pain Still in pain but improved mobility today. No longer with impaired proprioception No known trauma per ortho symptoms most consistent with DJD. Recommend pain control and outpt management -pain control #Lower extremity cellulitis -Continue ceftriaxone -ID on board: pending decision to tx with vancomycin -blood cx drawn after abx given #CAROLYN:improving Likely prerenal given elevated BUN to creatinine ratio fluids dc'd Hold nephrotoxic medications #Diastolic CHF Now fluid overloaded -IV lasix 40mg today, restart metolazone #HTN -cont imdur #CAD -cont asa/statin
--- NOTE | 2020-05-20 20:45 | PN ---
Physical Exam: SUBJECTIVE: Patient seen and examined at bedside. Was tachypneic and hypoxic overnight requiring increasing O2 via NC. OBJECTIVE: Vital Signs Period Temp Pulse Resp BP Sys/Emerson Pulse Ox Last 24 Hr 98.8 F-99.6 F 61-75 21-25 101-132/45-57 90-96 GENERAL: NAD HEAD: AT/NC EYES: Left eye corneal clouding ENT: MMM NECK: Trachea midline, full range of motion, supple. LUNGS: Fine Rales bilateral bases HEART: RRR No MRG S1S2 ABDOMEN: Soft, NDNT EXTREMITIES: bilateral venous stasis changes. Legs are more edematous and taut. RLE multiple small wounds with some purulence. Laboratory Results - last 24 hr 05/19/20 05/20/20 05/20/20 22:12 06:03 07:08 WBC 7.9 RBC 3.49 L Hgb 11.4 Hct 34.1 MCV 97.8 H MCH 32.6 MCHC 33.3 RDW 16.7 H Plt Count 205 MPV 9.2 Sodium Potassium Chloride Carbon Dioxide Anion Gap BUN Creatinine Est GFR (CKD-EPI)AfAm Est GFR (CKD-EPI)NonAf POC Glucometer 125 173 Random Glucose Calcium Phosphorus Magnesium 05/20/20 05/20/20 05/20/20 07:08 11:17 16:37 WBC RBC Hgb Hct MCV MCH MCHC RDW Plt Count MPV Sodium 140 Potassium 3.4 L Chloride 101 Carbon Dioxide 33 H Anion Gap 6 L BUN 35.6 H Creatinine 1.2 Est GFR (CKD-EPI)AfAm 47.06 Est GFR (CKD-EPI)NonAf 40.60 POC Glucometer 187 166 Random Glucose 143 H Calcium 7.4 L Phosphorus 2.1 L Magnesium 2.5 H Active Medications Generic Name Dose Route Start Last Admin Trade Name Freq PRN Reason Stop Dose Admin Albuterol Sulfate 2 puff 05/18/20 04:04 Ventolin Hfa Inhaler - IH Q4H PRN SHORT OF BREATH/WHEEZING Ascorbic Acid 500 mg 05/19/20 10:00 05/20/20 09:39 Vitamin C - PO 500 mg DAILY JOSE ELIAS Administration Aspirin 81 mg 05/19/20 10:00 05/20/20 09:39 Asa - PO 81 mg DAILY JOSE ELIAS Administration Atorvastatin Calcium 40 mg 05/18/20 22:00 05/19/20 22:14 Lipitor - PO 40 mg HS JOSE ELIAS Administration Brimonidine Tartrate 1 drop 05/19/20 22:00 05/20/20 09:42 Alphagan 0.2% - OS 1 drop BID JOSE ELIAS Administration Docusate Sodium 100 mg 05/18/20 22:00 05/20/20 09:39 Colace - PO 100 mg BID JOSE ELIAS Administration Dorzolamide HCl 1 drop 05/19/20 22:00 05/20/20 09:42 Trusopt 2% OS 1 drop BID JOSE ELIAS Administration Gabapentin 300 mg 05/18/20 22:00 05/20/20 09:40 Neurontin - PO 300 mg BID JOSE ELIAS Administration Heparin Sodium (Porcine) 5,000 unit 05/18/20 06:00 05/20/20 16:47 Heparin - SQ 5,000 unit TID JOSE ELIAS Administration Ceftriaxone Sodium 1 gm/ 50 mls @ 100 mls/hr 05/18/20 10:00 05/20/20 09:39 Dextrose IVPB 100 mls/hr DAILY JOSE ELIAS Administration Insulin Aspart 1 vial 05/18/20 07:00 05/20/20 16:48 Novolog Vial Sliding Scale - SQ 2 units ACHS JOSE ELIAS Administration Protocol Isosorbide Mononitrate 30 mg 05/19/20 10:00 05/20/20 09:40 Imdur - PO 30 mg DAILY JOSE ELIAS Administration Loratadine 10 mg 05/19/20 10:00 05/20/20 09:40 Claritin - PO 10 mg DAILY JOSE ELIAS Administration Metolazone 2.5 mg 05/20/20 10:30 05/20/20 11:32 Zaroxolyn - PO 2.5 mg DAILY JOSE ELIAS Administration Morphine Sulfate 2 mg 05/18/20 02:32 05/20/20 09:55 Morphine Sulfate IVPUSH 2 mg Q4H PRN Administration PAIN LEVEL 6-10 Multivitamins/Minerals/Vitamin C 1 tab 05/19/20 10:00 05/20/20 09:40 Tab-A-Vit - PO 1 tab DAILY JOSE ELIAS Administration Pantoprazole Sodium 40 mg 05/18/20 22:00 05/20/20 09:39 Protonix - PO 40 mg BID JOSE ELIAS Administration Polyethylene Glycol 17 gm 05/18/20 10:00 05/20/20 09:55 Miralax (For Daily Use) - PO 17 gm DAILY JOSE ELIAS Administration Tizanidine HCl 2 mg 05/18/20 15:46 05/20/20 09:40 Tizanidine Hcl PO 2 mg BID JOSE ELIAS Administration ASSESSMENT/PLAN: Patient is an 85 year old female with history of COPD (on home oxygen 2L), coronary artery disease (s/p stents), hyperlipidemia, diabetes mellitus (insulin dependnet), gastro-esophageal reflux, left eye blindness presents with complaint of left lower extremity pain. Left lower extremity pain -CT pelvis, left lower extremity does nor reveal acute fracture, or pathology to explain patient's symptoms -Duplex bilateral lower extremities negative for DVT - Tizanidine, Acetaminophen -Physical therapy evaluation -Ortho on board----> Patient's symptoms, PE and imaging are most consistent with DJD -Fall precautions Bilateral lower extremity Cellulitis -Continue Ceftriaxone. Pending Vancomycin per ID. -ID on board. Recs appreciated. Monitor for fever, trend CBC Acute kidney injury Cr 1.2. -Fluids D/C'ed Coronary artery disease -Continue home Aspirin, Atorvastatin, Isosorbide mononitrate HEFpEF -One time dose of 40 IV lasix and resumption of Metolazone this am. Diabetes mellitus -Insulin sliding scale ACHS -Fingerstick blood glucose ACHS FEN -No Fluids -Follow BMP -Diabetic diet, sodium modification Prophylaxis -Heparin 5000units subq TID Disposition -Med-Surg Visit type - Emergency Visit Emergency Visit: Yes ED Registration Date: 05/17/20 Care time: The patient presented to the Emergency Department on the above date and was hospitalized for further evaluation of their emergent condition. - New Patient This patient is new to me today: No - Critical Care Critical Care patient: No - Discharge Referral Referred to [facility] Med P.C.: No - Medication Review Med list reviewed for High Risk Meds patients 65 and older: Yes ATTENDING PHYSICIAN STATEMENT I saw and evaluated the patient. I reviewed the resident's note and discussed the case with the resident. I agree with the resident's findings and plan as documented. SUBJECTIVE: OBJECTIVE: ASSESSMENT AND PLAN:
[2020-05-20] MEDS: ATORVASTATIN CA 40 MG TABLET (FP) PO SCH (21:07)
--- NOTE | 2020-05-20 23:21 | PN ---
Progress Note, Physician Chief Complaint: AWAKE IN BED NO C/O LEG PAIN NO FEVER/ CHILLS - Current Medication List Current Medications: Active Medications Albuterol Sulfate (Ventolin Hfa Inhaler -) 2 puff IH Q4H PRN PRN Reason: SHORT OF BREATH/WHEEZING Ascorbic Acid (Vitamin C -) 500 mg PO DAILY [facility] Last Admin: 05/20/20 09:39 Dose: 500 mg Documented by: Aspirin (Asa -) 81 mg PO DAILY [facility] Last Admin: 05/20/20 09:39 Dose: 81 mg Documented by: Atorvastatin Calcium (Lipitor -) 40 mg PO HS [facility] Last Admin: 05/20/20 21:07 Dose: 40 mg Documented by: Brimonidine Tartrate (Alphagan 0.2% -) 1 drop OS BID [facility] Last Admin: 05/20/20 21:10 Dose: 1 drop Documented by: Docusate Sodium (Colace -) 100 mg PO BID [facility] Last Admin: 05/20/20 21:07 Dose: 100 mg Documented by: Dorzolamide HCl (Trusopt 2%) 1 drop OS BID [facility] Last Admin: 05/20/20 21:09 Dose: 1 drop Documented by: Gabapentin (Neurontin -) 300 mg PO BID [facility] Last Admin: 05/20/20 21:08 Dose: 300 mg Documented by: Heparin Sodium (Porcine) (Heparin -) 5,000 unit SQ TID [facility] Last Admin: 05/20/20 21:07 Dose: 5,000 unit Documented by: Ceftriaxone Sodium 1 gm/ (Dextrose) 50 mls @ 100 mls/hr IVPB DAILY [facility] Last Admin: 05/20/20 09:39 Dose: 100 mls/hr Documented by: Insulin Aspart (Novolog Vial Sliding Scale -) 1 vial SQ ACHS [facility]; Protocol Last Admin: 05/20/20 22:31 Dose: 2 units Documented by: Isosorbide Mononitrate (Imdur -) 30 mg PO DAILY [facility] Last Admin: 05/20/20 09:40 Dose: 30 mg Documented by: Loratadine (Claritin -) 10 mg PO DAILY [facility] Last Admin: 05/20/20 09:40 Dose: 10 mg Documented by: Metolazone (Zaroxolyn -) 2.5 mg PO DAILY [facility] Last Admin: 05/20/20 11:32 Dose: 2.5 mg Documented by: Morphine Sulfate (Morphine Sulfate) 2 mg IVPUSH Q4H PRN PRN Reason: PAIN LEVEL 6-10 Last Admin: 05/20/20 09:55 Dose: 2 mg Documented by: Multivitamins/Minerals/Vitamin C (Tab-A-Vit -) 1 tab PO DAILY [facility] Last Admin: 05/20/20 09:40 Dose: 1 tab Documented by: Pantoprazole Sodium (Protonix -) 40 mg PO BID [facility] Last Admin: 05/20/20 21:07 Dose: 40 mg Documented by: Polyethylene Glycol (Miralax (For Daily Use) -) 17 gm PO DAILY [facility] Last Admin: 05/20/20 09:55 Dose: 17 gm Documented by: Tizanidine HCl (Tizanidine Hcl) 2 mg PO BID [facility] Last Admin: 05/20/20 21:09 Dose: 2 mg Documented by: - Objective Vital Signs: Vital Signs Temperature 98.9 F 05/20/20 20:06 Pulse Rate 64 05/20/20 20:06 Respiratory Rate 22 H 05/20/20 20:06 Blood Pressure 123/48 L 05/20/20 20:06 O2 Sat by Pulse Oximetry (%) 95 05/20/20 21:00 Constitutional: Yes: No Distress, Obese Cardiovascular: Yes: Regular Rate and Rhythm, S1, S2 Respiratory: Yes: CTA Bilaterally Gastrointestinal: Yes: Normal Bowel Sounds, Soft Edema: Yes Integumentary: Yes: Other (DECREASED ERYTHEMA LE BILATERALLY) Labs: CBC, BMP 05/20/20 07:08 05/20/20 07:08 Assessment/Plan BILATERAL LE CELLULITIS IMPROVED LEUKOCYTOSIS IMPROVED CONTINUE CEFTRIAXONE ELEVATION
[2020-05-21] MEDS: HEPARIN NA (PORCINE) 5,000 UNITS/ML 1ML VIAL SQ SCH ×3 (05:28→22:37)
[2020-05-21] MEDS: INSULIN SLIDING SCALE (NOVOLOG) 1 VIAL SQ SCH ×4 (06:18→22:38)
[2020-05-21] MEDS ORDERED: INSULIN (NOVOLOG) ASPART 100 UNITS/ML 10ML VIAL ONE ×2 (06:39→17:11)
[2020-05-21 08:41] LABS: HEMATOCRIT 33.5 % (32.4-45.2); HEMOGLOBIN 11.3 GM/dL (10.7-15.3); MCH 33.6 pg (25.7-33.7); MCHC 33.8 g/dl (32.0-36.0); MEAN CELL VOLUME 99.2 fl (80-96); MEAN PLT VOLUME 9.6 fl (7.5-11.1); PLATELET COUNT 189 K/MM3 (134-434); RBC 3.38 M/mm3 (3.60-5.2); RDW 16.6 % (11.6-15.6); WHITE BLOOD COUNT 7.7 K/mm3 (4.0-10.0)
[2020-05-21 09:05] LABS: BLOOD UREA NITROGEN 34.8 mg/dL (7-18); CALCIUM 7.1 mg/dL (8.5-10.1); CREATININE 1.3 mg/dL (0.55-1.3); MAGNESIUM 2.4 mg/dL (1.8-2.4); PHOSPHOROUS 2.1 mg/dL (2.5-4.9); POTASSIUM 3.7 mmol/L (3.5-5.1)
[2020-05-21] MEDS ORDERED: PT OWN MED DRAWER 7, Y5N ONE ×2 (09:52→22:25)
[2020-05-21] MEDS ORDERED: cefTRIAXone SODIUM 1 GM VIAL ONE (09:53)
[2020-05-21] MEDS ORDERED: DEXTROSE 5%-WATER - 50 ML IVPB ONE (09:53)
[2020-05-21] MEDS: PANTOPRAZOLE 40 MG TABLET PO SCH ×2 (10:01→22:37)
[2020-05-21] MEDS: CEFTRIAXONE 1 GM in DEXTROSE 5%-WATER - 50 ML IVPB SCH (10:01)
[2020-05-21] MEDS: MULTIVITAMINS (DAILY MVI) TABLET (FP) PO SCH (10:01)
[2020-05-21] MEDS: ASPIRIN 81 MG CHEWABLE TABLETS PO SCH (10:02)
[2020-05-21] MEDS: ISOSORBIDE MONONITRATE 30 MG TAB.SR.24H (FP) PO SCH (10:02)
[2020-05-21] MEDS: ASCORBIC ACID 500 MG TABLET (FP) PO SCH (10:02)
[2020-05-21] MEDS: BRIMONIDINE TARTRATE 0.2% OPHTHALMIC 5 ML BOTTLE OS SCH ×2 (10:02→22:42)
[2020-05-21] MEDS: LORATADINE 10 MG TABLET PO SCH (10:02)
[2020-05-21] MEDS: DOCUSATE SODIUM 100 MG CAPSULE (FP) PO SCH ×2 (10:02→22:38)
[2020-05-21] MEDS: TIZANIDINE HCL 2 MG TABLET PO SCH ×2 (10:03→22:40)
[2020-05-21] MEDS: GABAPENTIN 300 MG CAPSULE PO SCH ×2 (10:03→22:38)
[2020-05-21] MEDS: DORZOLAMIDE 2% HCL OPHTHALMIC SOLUTION 10 ML BOTTLE OS SCH ×2 (10:04→22:41)
[2020-05-21] MEDS: POLYETHYLENE GLYCOL 3350 119 GM BTL PO SCH (10:11)
[2020-05-21] MEDS: MORPHINE SULFATE 2 MG/ML VIAL IVPUSH PRN ×2 (10:12→16:19)
[2020-05-21] MEDS ORDERED: FUROSEMIDE 40 MG/4 ML INJECTABLE VIAL IVPUSH ONE (11:13)
[2020-05-21] MEDS: METOLAZONE 2.5 MG TABLET (FP) PO SCH (11:30)
--- NOTE | 2020-05-21 13:42 | PN ---
Teaching Attending Note Name of Resident: Abdoul Osborne ATTENDING PHYSICIAN STATEMENT I saw and evaluated the patient. I reviewed the resident's note and discussed the case with the resident. I agree with the resident's findings and plan as documented. SUBJECTIVE: Respiratory status slightly improved. Lower extremity edema mildly improved but still tense. Legs tender bilaterally. Continuing IV Lasix. Wound culture polymicrobial positive for presumptive MRSA, non-lactose fermenting GNB. Antibiotics pending ID recommendation. Constipated. Rectal dulcolax given OBJECTIVE Last Vital Signs Temp Pulse Resp BP Pulse Ox 99.2 F 66 32 H 116/52 L 92 L 05/21/20 13:38 05/21/20 13:38 05/21/20 13:38 05/21/20 13:38 05/21/20 13:38 PE: Per resident note Labs/Imaging: reviewed ASSESSMENT/PLAN 85-year-old female with a history of NSTEMI status post stent, chronic diastolic CHF, COPD on 2 L nasal cannula, HLD, IDDM, venous insufficiency, chronic bilateral lower extremity wounds presents with severe hip and knee pain, CAROLYN, and possible cellulitis #Left hip pain Still in pain but improved mobility today. No longer with impaired proprioception No known trauma per ortho symptoms most consistent with DJD. Recommend pain control and outpt management -pain control #Lower extremity cellulitis -wound culture polymicrobial positive for presumptive MRSA, non-lactose fermenting GNB -ID on board: appreciate recs -currently on ceftriaxone -blood cx drawn after abx given #CAROLYN:improving Likely prerenal given elevated BUN to creatinine ratio fluids dc'd Hold nephrotoxic medications #Diastolic CHF Still fluid overloaded -IV lasix 40mg today, cont metolazone #HTN -cont imdur #CAD -cont asa/statin
--- NOTE | 2020-05-21 16:04 | PN ---
Physical Exam: SUBJECTIVE: Patient seen and examined at bedside. Endorses increased right lower extremity tenderness. OBJECTIVE: Vital Signs Period Temp Pulse Resp BP Sys/Emerson Pulse Ox Last 24 Hr 98.9 F-99.4 F 61-76 21-32 113-133/45-61 92-95 GENERAL: No acute distress HEAD: AT/NC EYES: Left eye corneal clouding ENT: MMM NECK: Trachea midline, full range of motion, supple. LUNGS: Fine Rales bilateral bases HEART: RRR No MRG S1S2 ABDOMEN: Soft, NDNT EXTREMITIES: bilateral venous stasis changes. RLE more erythematous and tender. Laboratory Results - last 24 hr 05/20/20 05/20/20 05/21/20 16:37 22:05 06:17 WBC RBC Hgb Hct MCV MCH MCHC RDW Plt Count MPV Sodium Potassium Chloride Carbon Dioxide Anion Gap BUN Creatinine Est GFR (CKD-EPI)AfAm Est GFR (CKD-EPI)NonAf POC Glucometer 166 174 133 Random Glucose Calcium Phosphorus Magnesium 05/21/20 05/21/20 05/21/20 07:11 07:11 11:00 WBC 7.7 RBC 3.38 L Hgb 11.3 Hct 33.5 MCV 99.2 H MCH 33.6 MCHC 33.8 RDW 16.6 H Plt Count 189 MPV 9.6 Sodium 139 Potassium 3.7 Chloride 101 Carbon Dioxide 31 Anion Gap 7 L BUN 34.8 H Creatinine 1.3 Est GFR (CKD-EPI)AfAm 42.72 Est GFR (CKD-EPI)NonAf 36.86 POC Glucometer 181 Random Glucose 148 H Calcium 7.1 L Phosphorus 2.1 L Magnesium 2.4 Active Medications Generic Name Dose Route Start Last Admin Trade Name Freq PRN Reason Stop Dose Admin Albuterol Sulfate 2 puff 05/18/20 04:04 Ventolin Hfa Inhaler - IH Q4H PRN SHORT OF BREATH/WHEEZING Ascorbic Acid 500 mg 05/19/20 10:00 05/21/20 10:02 Vitamin C - PO 500 mg DAILY [facility] Administration Aspirin 81 mg 05/19/20 10:00 05/21/20 10:02 Asa - PO 81 mg DAILY [facility] Administration Atorvastatin Calcium 40 mg 05/18/20 22:00 05/20/20 21:07 Lipitor - PO 40 mg HS [facility] Administration Bacitracin 1 applic 05/21/20 13:45 Bacitracin - TP BID [facility] Brimonidine Tartrate 1 drop 05/19/20 22:00 05/21/20 10:02 Alphagan 0.2% - OS 1 drop BID [facility] Administration Docusate Sodium 100 mg 05/18/20 22:00 05/21/20 10:02 Colace - PO 100 mg BID [facility] Administration Dorzolamide HCl 1 drop 05/19/20 22:00 05/21/20 10:04 Trusopt 2% OS 1 drop BID [facility] Administration Gabapentin 300 mg 05/18/20 22:00 05/21/20 10:03 Neurontin - PO 300 mg BID [facility] Administration Heparin Sodium (Porcine) 5,000 unit 05/18/20 06:00 05/21/20 05:28 Heparin - SQ 5,000 unit TID [facility] Administration Ceftriaxone Sodium 1 gm/ 50 mls @ 100 mls/hr 05/18/20 10:00 05/21/20 10:01 Dextrose IVPB 100 mls/hr DAILY [facility] Administration Insulin Aspart 1 vial 05/18/20 07:00 05/21/20 11:06 Novolog Vial Sliding Scale - SQ 2 units ACHS [facility] Administration Protocol Isosorbide Mononitrate 30 mg 05/19/20 10:00 05/21/20 10:02 Imdur - PO 30 mg DAILY [facility] Administration Loratadine 10 mg 05/19/20 10:00 05/21/20 10:02 Claritin - PO 10 mg DAILY [facility] Administration Metolazone 2.5 mg 05/20/20 10:30 05/21/20 11:30 Zaroxolyn - PO 2.5 mg DAILY [facility] Administration Morphine Sulfate 2 mg 05/18/20 02:32 05/21/20 10:12 Morphine Sulfate IVPUSH 2 mg Q4H PRN Administration PAIN LEVEL 6-10 Multivitamins/Minerals/Vitamin C 1 tab 05/19/20 10:00 05/21/20 10:01 Tab-A-Vit - PO 1 tab DAILY [facility] Administration Pantoprazole Sodium 40 mg 05/18/20 22:00 05/21/20 10:01 Protonix - PO 40 mg BID [facility] Administration Polyethylene Glycol 17 gm 05/18/20 10:00 05/21/20 10:11 Miralax (For Daily Use) - PO 17 gm DAILY [facility] Administration Senna 8.8 mg 05/21/20 13:37 Senna Oral Solution - PO HS [facility] Tizanidine HCl 2 mg 05/18/20 15:46 05/21/20 10:03 Tizanidine Hcl PO 2 mg BID [facility] Administration ASSESSMENT/PLAN: Patient is an 85 year old female with history of COPD (on home oxygen 2L), coronary artery disease (s/p stents), hyperlipidemia, diabetes mellitus (insulin dependnet), gastro-esophageal reflux, left eye blindness presents with complaint of left lower extremity pain. Left lower extremity pain -CT pelvis, left lower extremity does nor reveal acute fracture, or pathology to explain patient's symptoms -Duplex bilateral lower extremities negative for DVT - Tizanidine, Acetaminophen -Physical therapy evaluation -Ortho on board----> Patient's symptoms, PE and imaging are most consistent with DJD -Fall precautions Bilateral lower extremity Cellulitis -Wound Culture Presumptive MRSA. Patient currently on Ceftriaxone. ID on board. Will evaluate patient and change antibiotics. -ID on board. Recs appreciated. Monitor for fever, trend CBC Acute kidney injury Cr 1.3. -Fluids D/C'ed Coronary artery disease -Continue home Aspirin, Atorvastatin, Isosorbide mononitrate HEFpEF -One time dose of 40 IV lasix again administered. will switch to PO Lasix tomorrow. Diabetes mellitus -Insulin sliding scale ACHS -Fingerstick blood glucose ACHS FEN -No Fluids -Follow BMP -Diabetic diet, sodium modification Prophylaxis -Heparin 5000units subq TID Disposition -Med-Surg Visit type - Emergency Visit Emergency Visit: Yes ED Registration Date: 05/17/20 Care time: The patient presented to the Emergency Department on the above date and was hospitalized for further evaluation of their emergent condition. - New Patient This patient is new to me today: No - Critical Care Critical Care patient: No - Discharge Referral Referred to [facility] Med P.C.: No - Medication Review Med list reviewed for High Risk Meds patients 65 and older: Yes ATTENDING PHYSICIAN STATEMENT I saw and evaluated the patient. I reviewed the resident's note and discussed the case with the resident. I agree with the resident's findings and plan as documented. SUBJECTIVE: OBJECTIVE: ASSESSMENT AND PLAN:
[2020-05-21] MEDS: SENNOSIDES 8.8 MG/5 ML BULK BOTTLE PO SCH ×2 (16:09→22:39)
[2020-05-21] MEDS: BACITRACIN 15 GM TUBE TOPICAL OINTMENT TP SCH ×2 (16:12→22:46)
[2020-05-21] MEDS ORDERED: INSULIN (LEVEMIR) 100 UNITS/ML UNITS SQ ONE (17:11)
[2020-05-21] MEDS: ATORVASTATIN CA 40 MG TABLET (FP) PO SCH (22:37)
--- NOTE | 2020-05-21 23:16 | PN ---
Progress Note, Physician - Current Medication List Current Medications: Active Medications Albuterol Sulfate (Ventolin Hfa Inhaler -) 2 puff IH Q4H PRN PRN Reason: SHORT OF BREATH/WHEEZING Ascorbic Acid (Vitamin C -) 500 mg PO DAILY [facility] Last Admin: 05/21/20 10:02 Dose: 500 mg Documented by: Aspirin (Asa -) 81 mg PO DAILY [facility] Last Admin: 05/21/20 10:02 Dose: 81 mg Documented by: Atorvastatin Calcium (Lipitor -) 40 mg PO HS [facility] Last Admin: 05/21/20 22:37 Dose: 40 mg Documented by: Bacitracin (Bacitracin -) 1 applic TP BID [facility] Last Admin: 05/21/20 22:46 Dose: 1 applic Documented by: Brimonidine Tartrate (Alphagan 0.2% -) 1 drop OS BID [facility] Last Admin: 05/21/20 22:42 Dose: 1 drop Documented by: Docusate Sodium (Colace -) 100 mg PO BID [facility] Last Admin: 05/21/20 22:38 Dose: 100 mg Documented by: Dorzolamide HCl (Trusopt 2%) 1 drop OS BID [facility] Last Admin: 05/21/20 22:41 Dose: 1 drop Documented by: Gabapentin (Neurontin -) 300 mg PO BID [facility] Last Admin: 05/21/20 22:38 Dose: 300 mg Documented by: Heparin Sodium (Porcine) (Heparin -) 5,000 unit SQ TID [facility] Last Admin: 05/21/20 22:37 Dose: 5,000 unit Documented by: Ceftriaxone Sodium 1 gm/ (Dextrose) 50 mls @ 100 mls/hr IVPB DAILY [facility] Last Admin: 05/21/20 10:01 Dose: 100 mls/hr Documented by: Insulin Aspart (Novolog Vial Sliding Scale -) 1 vial SQ ACHS [facility]; Protocol Last Admin: 05/21/20 22:38 Dose: Not Given Documented by: Isosorbide Mononitrate (Imdur -) 30 mg PO DAILY [facility] Last Admin: 05/21/20 10:02 Dose: 30 mg Documented by: Loratadine (Claritin -) 10 mg PO DAILY [facility] Last Admin: 05/21/20 10:02 Dose: 10 mg Documented by: Metolazone (Zaroxolyn -) 2.5 mg PO DAILY [facility] Last Admin: 05/21/20 11:30 Dose: 2.5 mg Documented by: Morphine Sulfate (Morphine Sulfate) 2 mg IVPUSH Q4H PRN PRN Reason: PAIN LEVEL 6-10 Last Admin: 05/21/20 16:19 Dose: 2 mg Documented by: Multivitamins/Minerals/Vitamin C (Tab-A-Vit -) 1 tab PO DAILY [facility] Last Admin: 05/21/20 10:01 Dose: 1 tab Documented by: Pantoprazole Sodium (Protonix -) 40 mg PO BID [facility] Last Admin: 05/21/20 22:37 Dose: 40 mg Documented by: Polyethylene Glycol (Miralax (For Daily Use) -) 17 gm PO DAILY [facility] Last Admin: 05/21/20 10:11 Dose: 17 gm Documented by: Senna (Senna Oral Solution -) 8.8 mg PO HS [facility] Last Admin: 05/21/20 22:39 Dose: 8.8 mg Documented by: Tizanidine HCl (Tizanidine Hcl) 2 mg PO BID [facility] Last Admin: 05/21/20 22:40 Dose: 2 mg Documented by: - Objective Vital Signs: Vital Signs Temperature 98.7 F 05/21/20 18:00 Pulse Rate 68 05/21/20 18:00 Respiratory Rate 24 H 05/21/20 18:00 Blood Pressure 135/53 L 05/21/20 18:00 O2 Sat by Pulse Oximetry (%) 93 L 05/21/20 18:00 Labs: CBC, BMP 05/21/20 07:11 05/21/20 07:11
[2020-05-21] MEDS ORDERED: VANCOMYCIN 1 GRAM (PRE-DOCKED) 1,000 MG/250 ML BAG IVPB ONE (23:19)
[2020-05-22] MEDS: ACETAMINOPHEN 500 MG TABLET (FP) PO ONE ×2 (05:22→05:36)
[2020-05-22] MEDS: HEPARIN NA (PORCINE) 5,000 UNITS/ML 1ML VIAL SQ SCH ×4 (06:39→22:20)
[2020-05-22] MEDS: INSULIN SLIDING SCALE (NOVOLOG) 1 VIAL SQ SCH ×4 (06:44→23:00)
[2020-05-22] MEDS ORDERED: PT OWN MED DRAWER 7, Y5N ONE ×2 (09:07→22:18)
[2020-05-22] MEDS ORDERED: DEXTROSE 5%-WATER - 50 ML IVPB ONE (09:08)
[2020-05-22] MEDS ORDERED: cefTRIAXone SODIUM 1 GM VIAL ONE (09:08)
[2020-05-22] MEDS: ASPIRIN 81 MG CHEWABLE TABLETS PO SCH (09:22)
[2020-05-22] MEDS: PANTOPRAZOLE 40 MG TABLET PO SCH ×2 (09:22→22:20)
[2020-05-22] MEDS: LORATADINE 10 MG TABLET PO SCH (09:22)
[2020-05-22] MEDS: ASCORBIC ACID 500 MG TABLET (FP) PO SCH (09:22)
[2020-05-22] MEDS: MULTIVITAMINS (DAILY MVI) TABLET (FP) PO SCH (09:22)
[2020-05-22] MEDS: DOCUSATE SODIUM 100 MG CAPSULE (FP) PO SCH ×2 (09:23→22:20)
[2020-05-22] MEDS: GABAPENTIN 300 MG CAPSULE PO SCH (09:23)
[2020-05-22] MEDS: POLYETHYLENE GLYCOL 3350 119 GM BTL PO SCH (09:28)
[2020-05-22] MEDS: TIZANIDINE HCL 2 MG TABLET PO SCH ×2 (09:35→22:21)
[2020-05-22] MEDS: METOLAZONE 2.5 MG TABLET (FP) PO SCH (09:36)
[2020-05-22] MEDS: BRIMONIDINE TARTRATE 0.2% OPHTHALMIC 5 ML BOTTLE OS SCH ×2 (09:43→22:20)
[2020-05-22] MEDS: DORZOLAMIDE 2% HCL OPHTHALMIC SOLUTION 10 ML BOTTLE OS SCH ×2 (09:43→22:22)
[2020-05-22] MEDS: ISOSORBIDE MONONITRATE 30 MG TAB.SR.24H (FP) PO SCH (10:20)
[2020-05-22 10:37] LABS: HEMATOCRIT 38.5 % (32.4-45.2); HEMOGLOBIN 12.8 GM/dL (10.7-15.3); MCH 33.1 pg (25.7-33.7); MCHC 33.3 g/dl (32.0-36.0); MEAN CELL VOLUME 99.5 fl (80-96); MEAN PLT VOLUME 9.2 fl (7.5-11.1); PLATELET COUNT 209 K/MM3 (134-434); RBC 3.87 M/mm3 (3.60-5.2); RDW 16.7 % (11.6-15.6); WHITE BLOOD COUNT 8.7 K/mm3 (4.0-10.0)
--- NOTE | 2020-05-22 11:05 | PN ---
Progress Note (short form) - Note Progress Note: S: Patient reports her L leg remaining painful. She admits to frequent scratching due to LExt pruritus. Patient denies any fevers/chills or SOB. 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 Vital Signs Temperature 98.1 F 05/22/20 14:25 Pulse Rate 64 05/22/20 14:25 Respiratory Rate 18 05/22/20 14:25 Blood Pressure 111/58 L 05/22/20 14:25 O2 Sat by Pulse Oximetry (%) 93 L 05/22/20 09:30 PE: GEN: NAD, awake, alert, oriented, OOB to chair HEENT: Nc/AT, L eye cataract, R eye SHYAM, MMM Neck: No JVD LUNG: CTA b/l without wheezes or rales CARD: RRR no murmrus ABD: soft, Nt/ND, + BS, EXT: b/l lower extremity venous stasis changes, L leg > R Leg nonpitting edema, multiple healing excoriation inferior to L knee, b/l warmth and redness receeding on L leg, R lower leg wrapped with some serous weeping CBC, BMP 05/22/20 10:08 05/22/20 10:08 Microbiology 05/19/20 11:10 Blood - Peripheral Venous Blood Culture - Preliminary NO GROWTH OBTAINED AFTER 72 HOURS, INCUBATION TO CONTINUE FOR 2 DAYS. 05/19/20 11:00 Blood - Peripheral Venous Blood Culture - Preliminary NO GROWTH OBTAINED AFTER 72 HOURS, INCUBATION TO CONTINUE FOR 2 DAYS. 05/19/20 17:50 Wound Gram Stain - Final 05/19/20 17:50 Wound Wound Culture - Final Pseudomonas Aeruginosa Mr S Aureus Diphtheroid/Corynebacterium Active Medications Albuterol Sulfate (Ventolin Hfa Inhaler -) 2 puff IH Q4H PRN PRN Reason: SHORT OF BREATH/WHEEZING Ascorbic Acid (Vitamin C -) 500 mg PO DAILY [facility] Last Admin: 05/22/20 09:22 Dose: 500 mg Documented by: Aspirin (Asa -) 81 mg PO DAILY [facility] Last Admin: 05/22/20 09:22 Dose: 81 mg Documented by: Atorvastatin Calcium (Lipitor -) 40 mg PO HS [facility] Last Admin: 05/21/20 22:37 Dose: 40 mg Documented by: Bacitracin (Bacitracin -) 1 applic TP BID [facility] Last Admin: 05/21/20 22:46 Dose: 1 applic Documented by: Brimonidine Tartrate (Alphagan 0.2% -) 1 drop OS BID [facility] Last Admin: 05/22/20 09:43 Dose: 1 drop Documented by: Docusate Sodium (Colace -) 100 mg PO BID [facility] Last Admin: 05/22/20 09:23 Dose: 100 mg Documented by: Dorzolamide HCl (Trusopt 2%) 1 drop OS BID [facility] Last Admin: 05/22/20 09:43 Dose: 1 drop Documented by: Furosemide (Lasix -) 40 mg PO ONCE ONE Stop: 05/22/20 15:46 Furosemide (Lasix -) 40 mg PO BID@0600,1400 [facility] Gabapentin (Neurontin -) 300 mg PO BID [facility] Last Admin: 05/22/20 09:23 Dose: 300 mg Documented by: Heparin Sodium (Porcine) (Heparin -) 5,000 unit SQ TID [facility] Last Admin: 05/22/20 14:15 Dose: 5,000 unit Documented by: Ceftriaxone Sodium 1 gm/ (Dextrose) 50 mls @ 100 mls/hr IVPB DAILY [facility] Last Admin: 05/22/20 13:00 Dose: 100 mls/hr Documented by: Insulin Aspart (Novolog Vial Sliding Scale -) 1 vial SQ ACHS [facility]; Protocol Last Admin: 05/22/20 11:47 Dose: 2 units Documented by: Isosorbide Mononitrate (Imdur -) 30 mg PO DAILY [facility] Last Admin: 05/22/20 10:20 Dose: Not Given Documented by: Loratadine (Claritin -) 10 mg PO DAILY [facility] Last Admin: 05/22/20 09:22 Dose: 10 mg Documented by: Metolazone (Zaroxolyn -) 2.5 mg PO DAILY [facility] Last Admin: 05/22/20 09:36 Dose: 2.5 mg Documented by: Multivitamins/Minerals/Vitamin C (Tab-A-Vit -) 1 tab PO DAILY [facility] Last Admin: 05/22/20 09:22 Dose: 1 tab Documented by: Pantoprazole Sodium (Protonix -) 40 mg PO BID [facility] Last Admin: 05/22/20 09:22 Dose: 40 mg Documented by: Polyethylene Glycol (Miralax (For Daily Use) -) 17 gm PO DAILY [facility] Last Admin: 05/22/20 09:28 Dose: 17 gm Documented by: Senna (Senna Oral Solution -) 8.8 mg PO HS [facility] Last Admin: 05/21/20 22:39 Dose: 8.8 mg Documented by: Tizanidine HCl (Tizanidine Hcl) 2 mg PO BID [facility] Last Admin: 05/22/20 09:35 Dose: 2 mg Documented by: Assessment and Plan: Lower Extremity Cellulitis L Hip pain Venous stasis and volume overload Acute kidney injury, resolving L eye cataract History of CAD History of COPD on home oxygen History of HLD Hypophosphatemia --Patient with improving LLE cellulitis yet still with significant edema --Lasix 40mg PO today and continue BID dosing per home medications as tolerated -Daily assessment of IV formulation --Continue home metolazone as well --Will need wound care follow-up as cellulitis likely from chronic venous stasis and resultant nonpitting edema with excoriations --Continue Rocephin daily --Polymicrobial cultures noted, however probably skin contaminants mixed into culture --ID on board --Can increase Gabapentin to 400mg BID PO due to ongoing pain --L Hip noted to be DJD by orthopedic evaluation and will be managed as an outpatient after acute issues resolve --Patient refusing phosphate supplementation --Continue rest of home medication including eye gtts Dispo: continue monitoring; transition to PO ABX and discharge planning; continue diuresis Fuad Bragg DO - IM
[2020-05-22 11:07] LABS: CREATININE 1.2 mg/dL (0.55-1.3); POTASSIUM 3.9 mmol/L (3.5-5.1)
[2020-05-22 11:08] LABS: MAGNESIUM 2.6 mg/dL (1.8-2.4); PHOSPHOROUS 2.4 mg/dL (2.5-4.9)
[2020-05-22] MEDS ORDERED: NAPH,MB-DB/K PH,MBDB POWDER PACKET PO ONE (11:08)
[2020-05-22] MEDS: BACITRACIN 15 GM TUBE TOPICAL OINTMENT TP SCH ×2 (11:25→22:20)
[2020-05-22] MEDS: CEFTRIAXONE 1 GM in DEXTROSE 5%-WATER - 50 ML IVPB SCH (13:00)
[2020-05-22] MEDS ORDERED: FUROSEMIDE 40 MG TABLET (FP) PO ONE (15:45)
[2020-05-22] MEDS ORDERED: oxyCODONE HCL 5 MG TABLET PO ONE (16:27)
[2020-05-22] MEDS: ATORVASTATIN CA 40 MG TABLET (FP) PO SCH (22:20)
[2020-05-22] MEDS: SENNOSIDES 8.8 MG/5 ML BULK BOTTLE PO SCH (22:21)
[2020-05-22] MEDS: GABAPENTIN 400 MG CAPSULE PO SCH (22:42)
[2020-05-23] MEDS ORDERED: PT OWN MED DRAWER 7, Y5N ONE ×2 (05:04→11:02)
[2020-05-23] MEDS: INSULIN SLIDING SCALE (NOVOLOG) 1 VIAL SQ SCH ×4 (06:50→22:58)
[2020-05-23] MEDS: HEPARIN NA (PORCINE) 5,000 UNITS/ML 1ML VIAL SQ SCH ×3 (06:51→22:55)
[2020-05-23] MEDS: FUROSEMIDE 40 MG TABLET (FP) PO SCH ×2 (06:51→14:55)
[2020-05-23 09:25] LABS: HEMATOCRIT 36.8 % (32.4-45.2); HEMOGLOBIN 12.3 GM/dL (10.7-15.3); MCH 32.4 pg (25.7-33.7); MCHC 33.3 g/dl (32.0-36.0); MEAN CELL VOLUME 97.3 fl (80-96); PLATELET COUNT 229 K/MM3 (134-434); RBC 3.79 M/mm3 (3.60-5.2); RDW 16.7 % (11.6-15.6); WHITE BLOOD COUNT 8.3 K/mm3 (4.0-10.0)
[2020-05-23 09:56] LABS: BLOOD UREA NITROGEN 29.6 mg/dL (7-18); CALCIUM 8.1 mg/dL (8.5-10.1); MAGNESIUM 2.4 mg/dL (1.8-2.4); POTASSIUM 3.5 mmol/L (3.5-5.1)
[2020-05-23 09:59] LABS: BILIRUBIN,TOTAL 0.8 mg/dL (0.2-1); CREATININE 1.3 mg/dL (0.55-1.3); PHOSPHOROUS 2.6 mg/dL (2.5-4.9); TOT PROT 6.8 g/dl (6.4-8.2)
[2020-05-23] MEDS ORDERED: DEXTROSE 5%-WATER - 50 ML IVPB ONE (11:02)
[2020-05-23] MEDS ORDERED: cefTRIAXone SODIUM 1 GM VIAL ONE (11:02)
[2020-05-23] MEDS: ISOSORBIDE MONONITRATE 30 MG TAB.SR.24H (FP) PO SCH (11:19)
[2020-05-23] MEDS: LORATADINE 10 MG TABLET PO SCH (11:19)
[2020-05-23] MEDS: ASCORBIC ACID 500 MG TABLET (FP) PO SCH (11:19)
[2020-05-23] MEDS: PANTOPRAZOLE 40 MG TABLET PO SCH ×2 (11:19→22:57)
[2020-05-23] MEDS: CEFTRIAXONE 1 GM in DEXTROSE 5%-WATER - 50 ML IVPB SCH (11:19)
[2020-05-23] MEDS: MULTIVITAMINS (DAILY MVI) TABLET (FP) PO SCH (11:19)
[2020-05-23] MEDS: ASPIRIN 81 MG CHEWABLE TABLETS PO SCH (11:19)
[2020-05-23] MEDS: POLYETHYLENE GLYCOL 3350 119 GM BTL PO SCH (11:20)
[2020-05-23] MEDS: DOCUSATE SODIUM 100 MG CAPSULE (FP) PO SCH ×2 (11:20→22:56)
[2020-05-23] MEDS: METOLAZONE 2.5 MG TABLET (FP) PO SCH (11:21)
[2020-05-23] MEDS: GABAPENTIN 400 MG CAPSULE PO SCH ×2 (11:21→22:56)
[2020-05-23] MEDS: TIZANIDINE HCL 2 MG TABLET PO SCH (11:21)
[2020-05-23] MEDS: BRIMONIDINE TARTRATE 0.2% OPHTHALMIC 5 ML BOTTLE OS SCH ×2 (11:30→22:55)
[2020-05-23] MEDS: DORZOLAMIDE 2% HCL OPHTHALMIC SOLUTION 10 ML BOTTLE OS SCH ×2 (11:30→23:11)
[2020-05-23] MEDS: BACITRACIN 15 GM TUBE TOPICAL OINTMENT TP SCH ×2 (11:31→22:55)
[2020-05-23] MEDS ORDERED: oxyCODONE HCL 5 MG TABLET PO ONE (11:34)
[2020-05-23] MEDS ORDERED: INSULIN (NOVOLOG) ASPART 100 UNITS/ML 10ML VIAL ONE (11:35)
--- NOTE | 2020-05-23 16:50 | PN ---
Progress Note (short form) - Note Progress Note: S: Continued pain in LExt and discussed that his is due to her edema and stasis. No SOB, no CP. Vital Signs Temperature 99.5 F 05/23/20 14:07 Pulse Rate 74 05/23/20 14:07 Respiratory Rate 20 05/23/20 14:07 Blood Pressure 123/58 L 05/23/20 14:07 O2 Sat by Pulse Oximetry (%) 94 L 05/23/20 09:00 PE: GEN: NAD, awake, alert, oriented, OOB to chair HEENT: Nc/AT, L eye cataract, R eye SHYAM, MMM Neck: No JVD LUNG: CTA b/l without wheezes or rales CARD: RRR no murmrus ABD: soft, Nt/ND, + BS, EXT: b/l lower extremity venous stasis changes, L leg > R Leg nonpitting edema, multiple healing excoriation inferior to L knee, no overt erythema noted (chronic venous stasis), R lower leg wrapped with some serous weeping CBC, BMP 05/23/20 08:55 05/23/20 08:55 Microbiology 05/19/20 11:10 Blood - Peripheral Venous Blood Culture - Preliminary NO GROWTH OBTAINED AFTER 72 HOURS, INCUBATION TO CONTINUE FOR 2 DAYS. 05/19/20 11:00 Blood - Peripheral Venous Blood Culture - Preliminary NO GROWTH OBTAINED AFTER 72 HOURS, INCUBATION TO CONTINUE FOR 2 DAYS. 05/19/20 17:50 Wound Gram Stain - Final 05/19/20 17:50 Wound Wound Culture - Final Pseudomonas Aeruginosa Mr S Aureus Diphtheroid/Corynebacterium Active Medications Albuterol Sulfate (Ventolin Hfa Inhaler -) 2 puff IH Q4H PRN PRN Reason: SHORT OF BREATH/WHEEZING Ascorbic Acid (Vitamin C -) 500 mg PO DAILY [facility] Last Admin: 05/22/20 09:22 Dose: 500 mg Documented by: Aspirin (Asa -) 81 mg PO DAILY [facility] Last Admin: 05/22/20 09:22 Dose: 81 mg Documented by: Atorvastatin Calcium (Lipitor -) 40 mg PO HS [facility] Last Admin: 05/21/20 22:37 Dose: 40 mg Documented by: Bacitracin (Bacitracin -) 1 applic TP BID [facility] Last Admin: 05/21/20 22:46 Dose: 1 applic Documented by: Brimonidine Tartrate (Alphagan 0.2% -) 1 drop OS BID [facility] Last Admin: 05/22/20 09:43 Dose: 1 drop Documented by: Docusate Sodium (Colace -) 100 mg PO BID [facility] Last Admin: 05/22/20 09:23 Dose: 100 mg Documented by: Dorzolamide HCl (Trusopt 2%) 1 drop OS BID [facility] Last Admin: 05/22/20 09:43 Dose: 1 drop Documented by: Furosemide (Lasix -) 40 mg PO ONCE ONE Stop: 05/22/20 15:46 Furosemide (Lasix -) 40 mg PO BID@0600,1400 [facility] Gabapentin (Neurontin -) 300 mg PO BID [facility] Last Admin: 05/22/20 09:23 Dose: 300 mg Documented by: Heparin Sodium (Porcine) (Heparin -) 5,000 unit SQ TID [facility] Last Admin: 05/22/20 14:15 Dose: 5,000 unit Documented by: Ceftriaxone Sodium 1 gm/ (Dextrose) 50 mls @ 100 mls/hr IVPB DAILY [facility] Last Admin: 05/22/20 13:00 Dose: 100 mls/hr Documented by: Insulin Aspart (Novolog Vial Sliding Scale -) 1 vial SQ ACHS [facility]; Protocol Last Admin: 05/22/20 11:47 Dose: 2 units Documented by: Isosorbide Mononitrate (Imdur -) 30 mg PO DAILY [facility] Last Admin: 05/22/20 10:20 Dose: Not Given Documented by: Loratadine (Claritin -) 10 mg PO DAILY [facility] Last Admin: 05/22/20 09:22 Dose: 10 mg Documented by: Metolazone (Zaroxolyn -) 2.5 mg PO DAILY [facility] Last Admin: 05/22/20 09:36 Dose: 2.5 mg Documented by: Multivitamins/Minerals/Vitamin C (Tab-A-Vit -) 1 tab PO DAILY [facility] Last Admin: 05/22/20 09:22 Dose: 1 tab Documented by: Pantoprazole Sodium (Protonix -) 40 mg PO BID [facility] Last Admin: 05/22/20 09:22 Dose: 40 mg Documented by: Polyethylene Glycol (Miralax (For Daily Use) -) 17 gm PO DAILY [facility] Last Admin: 05/22/20 09:28 Dose: 17 gm Documented by: Senna (Senna Oral Solution -) 8.8 mg PO HS [facility] Last Admin: 05/21/20 22:39 Dose: 8.8 mg Documented by: Tizanidine HCl (Tizanidine Hcl) 2 mg PO BID [facility] Last Admin: 05/22/20 09:35 Dose: 2 mg Documented by: Assessment and Plan: Lower Extremity Cellulitis L Hip pain Venous stasis and volume overload Acute kidney injury, resolving L eye cataract History of CAD History of COPD on home oxygen History of HLD Hypophosphatemia, normalizing --Patient with improving LLE cellulitis yet still with significant edema --Lasix 40mg BID dosing per home medications as tolerated with Metolazone prior to one dose --Will need wound care follow-up as cellulitis likely from chronic venous stasis and resultant nonpitting edema with excoriations --Continue Rocephin daily day 6/7 with interval resolution of cellulitic LLE changes --Polymicrobial cultures noted, however probably skin contaminants mixed into cu lture --ID on board --Continue Gabapentin to 400mg BID PO due to ongoing pain; related to edema --L Hip noted to be DJD by orthopedic evaluation and will be managed as an outpatient after acute issues resolve --Continue rest of home medication including eye gtts Dispo: d/c planning with follow-ups DO Malcolm Bolivar
[2020-05-23] MEDS: ATORVASTATIN CA 40 MG TABLET (FP) PO SCH (22:56)
[2020-05-23] MEDS: SENNOSIDES 8.8 MG/5 ML BULK BOTTLE PO SCH (22:57)
[2020-05-24] MEDS ORDERED: ACETAMINOPHEN 1000 MG/100 ML VIAL (NON FORMULARY) IVPB ONE (04:23)
[2020-05-24] MEDS: FUROSEMIDE 40 MG TABLET (FP) PO SCH (06:33)
[2020-05-24] MEDS: HEPARIN NA (PORCINE) 5,000 UNITS/ML 1ML VIAL SQ SCH ×3 (06:33→22:36)
[2020-05-24] MEDS: INSULIN SLIDING SCALE (NOVOLOG) 1 VIAL SQ SCH ×4 (06:34→22:41)
[2020-05-24] MEDS ORDERED: DEXTROSE 5%-WATER - 50 ML IVPB ONE (09:56)
[2020-05-24] MEDS ORDERED: cefTRIAXone SODIUM 1 GM VIAL ONE (09:56)
[2020-05-24] MEDS ORDERED: PT OWN MED DRAWER 7, Y5N ONE ×3 (09:56→22:27)
[2020-05-24] MEDS: CEFTRIAXONE 1 GM in DEXTROSE 5%-WATER - 50 ML IVPB SCH (10:02)
[2020-05-24] MEDS: PANTOPRAZOLE 40 MG TABLET PO SCH ×2 (10:03→22:36)
[2020-05-24] MEDS: GABAPENTIN 400 MG CAPSULE PO SCH ×2 (10:03→22:36)
[2020-05-24] MEDS: ASPIRIN 81 MG CHEWABLE TABLETS PO SCH (10:03)
[2020-05-24] MEDS: ISOSORBIDE MONONITRATE 30 MG TAB.SR.24H (FP) PO SCH (10:03)
[2020-05-24] MEDS: DOCUSATE SODIUM 100 MG CAPSULE (FP) PO SCH ×2 (10:03→22:42)
[2020-05-24] MEDS: BRIMONIDINE TARTRATE 0.2% OPHTHALMIC 5 ML BOTTLE OS SCH ×2 (10:03→22:47)
[2020-05-24] MEDS: LORATADINE 10 MG TABLET PO SCH (10:03)
[2020-05-24] MEDS: MULTIVITAMINS (DAILY MVI) TABLET (FP) PO SCH (10:03)
[2020-05-24] MEDS: ASCORBIC ACID 500 MG TABLET (FP) PO SCH (10:03)
[2020-05-24] MEDS: TIZANIDINE HCL 2 MG TABLET PO SCH ×3 (10:04→22:37)
[2020-05-24] MEDS: DORZOLAMIDE 2% HCL OPHTHALMIC SOLUTION 10 ML BOTTLE OS SCH ×2 (10:04→22:44)
[2020-05-24] MEDS: BACITRACIN 15 GM TUBE TOPICAL OINTMENT TP SCH ×2 (10:04→22:37)
[2020-05-24] MEDS: POLYETHYLENE GLYCOL 3350 119 GM BTL PO SCH (10:12)
[2020-05-24 10:22] LABS: HEMATOCRIT 39.4 % (32.4-45.2); MCH 33.1 pg (25.7-33.7); MEAN CELL VOLUME 100.3 fl (80-96); MEAN PLT VOLUME 9.9 fl (7.5-11.1); PLATELET COUNT 257 K/MM3 (134-434); RBC 3.93 M/mm3 (3.60-5.2); RDW 16.9 % (11.6-15.6); WHITE BLOOD COUNT 9.2 K/mm3 (4.0-10.0)
[2020-05-24 10:27] LABS: BLOOD UREA NITROGEN 38.1 mg/dL (7-18); CALCIUM 8.6 mg/dL (8.5-10.1); CREATININE 1.7 mg/dL (0.55-1.3); MAGNESIUM 2.7 mg/dL (1.8-2.4); POTASSIUM 3.9 mmol/L (3.5-5.1)
--- NOTE | 2020-05-24 13:08 | PN ---
Teaching Attending Note Name of Resident: Abdoul Osborne ATTENDING PHYSICIAN STATEMENT I saw and evaluated the patient. I reviewed the resident's note and discussed the case with the resident. I agree with the resident's findings and plan as documented. SUBJECTIVE: Lower extremity edema mildly improved but still tense. Legs tender bilaterall y. Continuing IV Lasix. Wound culture polymicrobial positive for presumptive MRSA, non-lactose fermenting GNB. Antibiotics pending ID recommendation. Constipated. Rectal dulcolax given OBJECTIVE Last Vital Signs Temp Pulse Resp BP Pulse Ox 97.1 F L 65 20 118/52 L 98 05/24/20 10:00 05/24/20 10:00 05/24/20 10:00 05/24/20 10:00 05/24/20 10:00 PE: Per resident note Labs/Imaging: reviewed ASSESSMENT/PLAN 85-year-old female with a history of NSTEMI status post stent, chronic diastolic CHF, COPD on 2 L nasal cannula, HLD, IDDM, venous insufficiency, chronic bilateral lower extremity wounds presents with severe hip and knee pain, CAROLYN, and possible cellulitis #Left hip pain Still in pain but improved mobility today. No longer with impaired pro prioception No known trauma per ortho symptoms most consistent with DJD. Recommend pain control and outpt management -pain control #Lower extremity cellulitis -wound culture polymicrobial positive for presumptive MRSA, non-lactose fermenting GNB -ID on board: appreciate recs -currently on ceftriaxone -blood cx drawn after abx given #CAROLYN:improving Likely prerenal given elevated BUN to creatinine ratio fluids dc'd Hold nephrotoxic medications #Diastolic CHF Still fluid overloaded -IV lasix 40mg today, cont metolazone #HTN -cont imdur #CAD -cont asa/statin
--- NOTE | 2020-05-24 13:10 | PN ---
Teaching Attending Note Name of Resident: Abdoul Osborne ATTENDING PHYSICIAN STATEMENT I saw and evaluated the patient. I reviewed the resident's note and discussed the case with the resident. I agree with the resident's findings and plan as documented. SUBJECTIVE: Seen and examined at bedside. Patient still with swollen and tender legs bilate rally. Wound cultures resulted for Pseudomonas and MRSA on Sunday but patient has been on ceftriaxone over the weekend. Has been afebrile, with stable white count. Will discuss possible broadening of antibiotics with ID. Cart Pusher rising: will decrease lasix to 40mg daily OBJECTIVE Last Vital Signs Temp Pulse Resp BP Pulse Ox 97.1 F L 65 20 118/52 L 98 05/24/20 10:00 05/24/20 10:00 05/24/20 10:00 05/24/20 10:05/24/20 10:00 PE: Per resident note Labs/Imaging: reviewed ASSESSMENT/PLAN 85-year-old female with a history of NSTEMI status post stent, chronic diastolic CHF, COPD on 2 L nasal cannula, HLD, IDDM, venous insufficiency, chronic bilateral lower extremity wounds presents with severe hip and knee pain, CAROLYN, and possible cellulitis #Left hip pain Still in pain but improved mobility today. No longer with impaired proprioception No known trauma per ortho symptoms most consistent with DJD. Recommend pain control and outpt management -pain control #Lower extremity cellulitis -wound culture polymicrobial positive for MRSA, pseudomonas -ID on board: appreciate recs -currently on ceftriaxone -blood cx drawn after abx given #CAROLYN: Likely prerenal given elevated BUN to creatinine ratio lasix changed to 40mg daily Hold nephrotoxic medications #Diastolic CHF Still fluid overloaded -PO lasix 40mg today, cont metolazone #HTN -cont imdur #CAD -cont asa/statin
[2020-05-24] MEDS: METOLAZONE 2.5 MG TABLET (FP) PO SCH (14:28)
--- NOTE | 2020-05-24 19:06 | PN ---
Physical Exam: SUBJECTIVE: Patient seen and examined at bedside. Endorses lower extremity pain. OBJECTIVE: Vital Signs Period Temp Pulse Resp BP Sys/Emerson Pulse Ox Last 24 Hr 97.1 F-98.2 F 60-74 20-20 101-118/40-52 93-98 GENERAL: NAD HEAD: AT/NC EYES: Left eye corneal clouding ENT: MMM NECK: Trachea midline, full range of motion, supple. LUNGS: Decreased breath sounds HEART: RRR No MRG [id number] ABDOMEN: Soft, NDNT EXTREMITIES: bilateral venous stasis changes. Edema b/l. Right lower extremity more edematous. TTP. Laboratory Results - last 24 hr 05/23/20 05/24/20 05/24/20 22:53 06:23 08:42 WBC 9.2 RBC 3.93 Hgb 13.0 Hct 39.4 MCV 100.3 H MCH 33.1 MCHC 33.0 RDW 16.9 H Plt Count 257 MPV 9.9 Sodium Potassium Chloride Carbon Dioxide Anion Gap BUN Creatinine Est GFR (CKD-EPI)AfAm Est GFR (CKD-EPI)NonAf POC Glucometer 162 163 Random Glucose Calcium Magnesium 05/24/20 05/24/20 05/24/20 08:42 12:10 17:01 WBC RBC Hgb Hct MCV MCH MCHC RDW Plt Count MPV Sodium 135 L Potassium 3.9 Chloride 99 Carbon Dioxide 24 Anion Gap 12 BUN 38.1 H Creatinine 1.7 H Est GFR (CKD-EPI)AfAm 30.89 Est GFR (CKD-EPI)NonAf 26.65 POC Glucometer 174 161 Random Glucose 134 H Calcium 8.6 Magnesium 2.7 H Active Medications Generic Name Dose Route Start Last Admin Trade Name Freq PRN Reason Stop Dose Admin Albuterol Sulfate 2 puff 05/18/20 04:04 Ventolin Hfa Inhaler - IH Q4H PRN SHORT OF BREATH/WHEEZING Ascorbic Acid 500 mg 05/19/20 10:00 05/24/20 10:03 Vitamin C - PO 500 mg DAILY [facility] Administration Aspirin 81 mg 05/19/20 10:00 05/24/20 10:03 Asa - PO 81 mg DAILY [facility] Administration Atorvastatin Calcium 40 mg 05/18/20 22:00 05/23/20 22:56 Lipitor - PO 40 mg HS [facility] Administration Bacitracin 1 applic 05/21/20 13:45 05/24/20 10:04 Bacitracin - TP 1 applic BID [facility] Administration Brimonidine Tartrate 1 drop 05/19/20 22:00 05/24/20 10:03 Alphagan 0.2% - OS 1 drop BID [facility] Administration Docusate Sodium 100 mg 05/18/20 22:00 05/24/20 10:03 Colace - PO 100 mg BID [facility] Administration Dorzolamide HCl 1 drop 05/19/20 22:00 05/24/20 10:04 Trusopt 2% OS 1 drop BID [facility] Administration Furosemide 40 mg 05/25/20 10:00 Lasix - PO DAILY [facility] Gabapentin 400 mg 05/22/20 22:00 05/24/20 10:03 Neurontin - PO 400 mg BID [facility] Administration Heparin Sodium (Porcine) 5,000 unit 05/18/20 06:00 05/24/20 14:28 Heparin - SQ 5,000 unit TID [facility] Administration Ceftriaxone Sodium 1 gm/ 50 mls @ 100 mls/hr 05/18/20 10:00 05/24/20 10:02 Dextrose IVPB 100 mls/hr DAILY [facility] Administration Insulin Aspart 1 vial 05/18/20 07:00 05/24/20 17:33 Novolog Vial Sliding Scale - SQ 2 units ACHS [facility] Administration Protocol Isosorbide Mononitrate 30 mg 05/19/20 10:00 05/24/20 10:03 Imdur - PO 30 mg DAILY [facility] Administration Loratadine 10 mg 05/19/20 10:00 05/24/20 10:03 Claritin - PO 10 mg DAILY [facility] Administration Metolazone 2.5 mg 05/24/20 13:30 05/24/20 14:28 Zaroxolyn - PO 2.5 mg DAILY [facility] Administration Multivitamins/Minerals/Vitamin C 1 tab 05/19/20 10:00 05/24/20 10:03 Tab-A-Vit - PO 1 tab DAILY [facility] Administration Pantoprazole Sodium 40 mg 05/18/20 22:00 05/24/20 10:03 Protonix - PO 40 mg BID [facility] Administration Polyethylene Glycol 17 gm 05/18/20 10:00 05/24/20 10:12 Miralax (For Daily Use) - PO 17 gm DAILY [facility] Administration Senna 8.8 mg 05/21/20 13:37 05/23/20 22:57 Senna Oral Solution - PO 8.8 mg HS [facility] Administration Tizanidine HCl 2 mg 05/18/20 15:46 05/24/20 10:04 Tizanidine Hcl PO 2 mg BID [facility] Administration ASSESSMENT/PLAN: Patient is an 85 year old female with history of COPD (on home oxygen 2L), coronary artery disease (s/p stents), hyperlipidemia, diabetes mellitus (insulin dependnet), gastro-esophageal reflux, left eye blindness presents with complaint of left lower extremity pain. Left lower extremity pain -CT pelvis, left lower extremity does nor reveal acute fracture, or pathology to explain patient's symptoms -Duplex bilateral lower extremities negative for DVT - Tizanidine, Acetaminophen -Physical therapy evaluation -Ortho on board----> Patient's symptoms, PE and imaging are most consistent with DJD -Fall precautions Bilateral lower extremity Cellulitis -Wound Culture MRSA and Pseudomonas. Patient currently on Ceftriaxone. ID on board. Will evaluate patient and change antibiotics. -ID on board. Recs appreciated. Monitor for fever, trend CBC Acute kidney injury Cr 1.7. Trend BMP. Lasix dose decreased. Coronary artery disease -Continue home Aspirin, Atorvastatin, Isosorbide mononitrate HEFpEF Lasix 40 PO Daily in light of rising creatinine. Diabetes mellitus -Insulin sliding scale ACHS -Fingerstick blood glucose ACHS FEN -No Fluids -Follow BMP -Diabetic diet, sodium modification Prophylaxis -Heparin 5000units subq TID Disposition -Med-Surg Visit type - Emergency Visit Emergency Visit: Yes ED Registration Date: 05/17/20 Care time: The patient presented to the Emergency Department on the above date and was hospitalized for further evaluation of their emergent condition. - New Patient This patient is new to me today: No - Critical Care Critical Care patient: No - Discharge Referral Referred to [facility] Med P.C.: No - Medication Review Med list reviewed for High Risk Meds patients 65 and older: Yes ATTENDING PHYSICIAN STATEMENT I saw and evaluated the patient. I reviewed the resident's note and discussed the case with the resident. I agree with the resident's findings and plan as documented. SUBJECTIVE: OBJECTIVE: ASSESSMENT AND PLAN:
[2020-05-24] MEDS ORDERED: ACETAMINOPHEN 325 MG TABLET (FP) PO PRN (19:34)
--- NOTE | 2020-05-24 22:31 | PN ---
Progress Note, Physician Chief Complaint: OOB IN CHAIR NO C/O LEG PAIN NO FEVER/ CHILLS WOUND C/S MIXED ORGANISMS PSEUDOMONAS/ VANCOMYCIN - Current Medication List Current Medications: Active Medications Acetaminophen (Tylenol -) 650 mg PO Q6H PRN PRN Reason: PAIN LEVEL 4 - 6 Last Admin: 05/24/20 19:53 Dose: 650 mg Documented by: Albuterol Sulfate (Ventolin Hfa Inhaler -) 2 puff IH Q4H PRN PRN Reason: SHORT OF BREATH/WHEEZING Ascorbic Acid (Vitamin C -) 500 mg PO DAILY [facility] Last Admin: 05/24/20 10:03 Dose: 500 mg Documented by: Aspirin (Asa -) 81 mg PO DAILY [facility] Last Admin: 05/24/20 10:03 Dose: 81 mg Documented by: Atorvastatin Calcium (Lipitor -) 40 mg PO HS [facility] Last Admin: 05/23/20 22:56 Dose: 40 mg Documented by: Bacitracin (Bacitracin -) 1 applic TP BID [facility] Last Admin: 05/24/20 10:04 Dose: 1 applic Documented by: Brimonidine Tartrate (Alphagan 0.2% -) 1 drop OS BID [facility] Last Admin: 05/24/20 10:03 Dose: 1 drop Documented by: Docusate Sodium (Colace -) 100 mg PO BID [facility] Last Admin: 05/24/20 10:03 Dose: 100 mg Documented by: Dorzolamide HCl (Trusopt 2%) 1 drop OS BID [facility] Last Admin: 05/24/20 10:04 Dose: 1 drop Documented by: Furosemide (Lasix -) 40 mg PO DAILY [facility] Gabapentin (Neurontin -) 400 mg PO BID [facility] Last Admin: 05/24/20 10:03 Dose: 400 mg Documented by: Heparin Sodium (Porcine) (Heparin -) 5,000 unit SQ TID [facility] Last Admin: 05/24/20 14:28 Dose: 5,000 unit Documented by: Ceftriaxone Sodium 1 gm/ (Dextrose) 50 mls @ 100 mls/hr IVPB DAILY [facility] Last Admin: 05/24/20 10:02 Dose: 100 mls/hr Documented by: Insulin Aspart (Novolog Vial Sliding Scale -) 1 vial SQ ACHS [facility]; Protocol Last Admin: 05/24/20 17:33 Dose: 2 units Documented by: Isosorbide Mononitrate (Imdur -) 30 mg PO DAILY [facility] Last Admin: 05/24/20 10:03 Dose: 30 mg Documented by: Loratadine (Claritin -) 10 mg PO DAILY [facility] Last Admin: 05/24/20 10:03 Dose: 10 mg Documented by: Metolazone (Zaroxolyn -) 2.5 mg PO DAILY [facility] Last Admin: 05/24/20 14:28 Dose: 2.5 mg Documented by: Multivitamins/Minerals/Vitamin C (Tab-A-Vit -) 1 tab PO DAILY [facility] Last Admin: 05/24/20 10:03 Dose: 1 tab Documented by: Pantoprazole Sodium (Protonix -) 40 mg PO BID [facility] Last Admin: 05/24/20 10:03 Dose: 40 mg Documented by: Polyethylene Glycol (Miralax (For Daily Use) -) 17 gm PO DAILY [facility] Last Admin: 05/24/20 10:12 Dose: 17 gm Documented by: Senna (Senna Oral Solution -) 8.8 mg PO HS [facility] Last Admin: 05/23/20 22:57 Dose: 8.8 mg Documented by: Tizanidine HCl (Tizanidine Hcl) 2 mg PO BID [facility] Last Admin: 05/24/20 10:04 Dose: 2 mg Documented by: - Objective Vital Signs: Vital Signs Temperature 98.0 F 05/24/20 18:00 Pulse Rate 63 05/24/20 18:00 Respiratory Rate 20 05/24/20 18:00 Blood Pressure 131/58 L 05/24/20 18:00 O2 Sat by Pulse Oximetry (%) 97 05/24/20 18:00 Constitutional: Yes: No Distress Eyes: Yes: Conjunctiva Clear Cardiovascular: Yes: Regular Rate and Rhythm, S1, S2 Respiratory: Yes: Regular Extremities: Yes: Other (LE REMAIN ERYTHEMATOUS NO DRAINAGE) Labs: CBC, BMP 05/24/20 08:42 05/24/20 08:42 Assessment/Plan BILATERAL LE CELLULITIS CHRONIC STASIS DERMATITIS [facility] VANCO/ZOSYN
[2020-05-24] MEDS: ATORVASTATIN CA 40 MG TABLET (FP) PO SCH (22:36)
[2020-05-24] MEDS: SENNOSIDES 8.8 MG/5 ML BULK BOTTLE PO SCH (22:37)
[2020-05-24] MEDS ORDERED: PIPERACILLIN/TAZOBACTAM 2.25 GM VIAL IVPB ONE (22:53)
[2020-05-24] MEDS: PIPERACILLIN/TAZOB 2.25 GM 2.25 GM in DEXTROSE 5%-WATER - 50 ML IVPB SCH (23:12)
[2020-05-24] MEDS: VANCOMYCIN 500 MG in DEXTROSE 5%-WATER 100 ML IVPB SCH (23:42)
[2020-05-25] MEDS ORDERED: DEXTROSE 5%-WATER - 50 ML IVPB ONE ×3 (01:48→17:02)
[2020-05-25] MEDS ORDERED: PIPERACILLIN/TAZOBACTAM 2.25 GM VIAL IVPB ONE ×3 (01:48→17:02)
[2020-05-25] MEDS: PIPERACILLIN/TAZOB 2.25 GM 2.25 GM in DEXTROSE 5%-WATER - 50 ML IVPB SCH ×3 (03:06→17:32)
[2020-05-25] MEDS: INSULIN SLIDING SCALE (NOVOLOG) 1 VIAL SQ SCH ×4 (06:17→21:20)
[2020-05-25 08:33] LABS: HEMATOCRIT 35.2 % (32.4-45.2); HEMOGLOBIN 11.8 GM/dL (10.7-15.3); MCH 32.4 pg (25.7-33.7); MCHC 33.4 g/dl (32.0-36.0); MEAN PLT VOLUME 9.4 fl (7.5-11.1); PLATELET COUNT 226 K/MM3 (134-434); RBC 3.63 M/mm3 (3.60-5.2); RDW 16.7 % (11.6-15.6); WHITE BLOOD COUNT 8.6 K/mm3 (4.0-10.0)
[2020-05-25 09:42] LABS: BLOOD UREA NITROGEN 40.3 mg/dL (7-18); CALCIUM 8.3 mg/dL (8.5-10.1); CREATININE 1.6 mg/dL (0.55-1.3); MAGNESIUM 2.7 mg/dL (1.8-2.4); PHOSPHOROUS 3.5 mg/dL (2.5-4.9); POTASSIUM 3.5 mmol/L (3.5-5.1)
[2020-05-25] MEDS ORDERED: PT OWN MED DRAWER 7, Y5N ONE ×3 (10:05→22:59)
[2020-05-25] MEDS: POLYETHYLENE GLYCOL 3350 119 GM BTL PO SCH (10:08)
[2020-05-25] MEDS: PANTOPRAZOLE 40 MG TABLET PO SCH ×2 (10:09→21:21)
[2020-05-25] MEDS: ASPIRIN 81 MG CHEWABLE TABLETS PO SCH (10:09)
[2020-05-25] MEDS: MULTIVITAMINS (DAILY MVI) TABLET (FP) PO SCH (10:09)
[2020-05-25] MEDS: LORATADINE 10 MG TABLET PO SCH (10:10)
[2020-05-25] MEDS: ASCORBIC ACID 500 MG TABLET (FP) PO SCH (10:10)
[2020-05-25] MEDS: DOCUSATE SODIUM 100 MG CAPSULE (FP) PO SCH ×2 (10:10→21:22)
[2020-05-25] MEDS: ISOSORBIDE MONONITRATE 30 MG TAB.SR.24H (FP) PO SCH (10:10)
[2020-05-25] MEDS: METOLAZONE 2.5 MG TABLET (FP) PO SCH (10:10)
[2020-05-25] MEDS: GABAPENTIN 400 MG CAPSULE PO SCH ×2 (10:10→21:22)
[2020-05-25] MEDS: FUROSEMIDE 40 MG TABLET (FP) PO SCH (10:10)
[2020-05-25] MEDS: BACITRACIN 15 GM TUBE TOPICAL OINTMENT TP SCH ×2 (10:10→21:22)
[2020-05-25] MEDS: BRIMONIDINE TARTRATE 0.2% OPHTHALMIC 5 ML BOTTLE OS SCH ×2 (10:10→21:24)
[2020-05-25] MEDS: TIZANIDINE HCL 2 MG TABLET PO SCH ×2 (10:11→21:23)
[2020-05-25] MEDS: DORZOLAMIDE 2% HCL OPHTHALMIC SOLUTION 10 ML BOTTLE OS SCH ×2 (10:11→21:24)
[2020-05-25] MEDS ORDERED: BISACODYL 10 MG SUPP.RECT PR PRN (10:14)
--- NOTE | 2020-05-25 13:05 | PN ---
Teaching Attending Note Name of Resident: Abdoul Osborne ATTENDING PHYSICIAN STATEMENT I saw and evaluated the patient. I reviewed the resident's note and discussed the case with the resident. I agree with the resident's findings and plan as documented. SUBJECTIVE: Seen and examined at bedside. Legs are still tense but less swollen and tender than previous. Patient switch to Vanco Zosyn as of last night OBJECTIVE Last Vital Signs Temp Pulse Resp BP Pulse Ox 98.1 F 60 18 97/35 L 97 05/25/20 06:54 05/25/20 06:54 05/25/20 06:54 05/25/20 06:54 05/25/20 06:54 PE: Per resident note Labs/Imaging: reviewed ASSESSMENT/PLAN 85-year-old female with a history of NSTEMI status post stent, chronic diastolic CHF, COPD on 2 L nasal cannula, HLD, IDDM, venous insufficiency, chronic bilateral lower extremity wounds presents with severe hip and knee pain, CAROLYN, and possible cellulitis #Lower extremity cellulitis -wound culture polymicrobial positive for MRSA, pseudomonas: switched to vanco/zosyn -ID on board: appreciate recs -blood cx drawn after abx given #Left hip pain Still in pain but improved mobility today. No longer with impaired proprioception No known trauma per ortho symptoms most consistent with DJD. Recommend pain control and outpt management -pain control #CAROLYN: 2/2 diuresis -hold lasix/metolazone tomorrow Hold nephrotoxic medications #Diastolic CHF Still fluid overloaded -PO lasix 40mg today, cont metolazone #HTN -cont imdur #CAD -cont asa/statin
--- NOTE | 2020-05-25 14:53 | PN ---
Progress Note, Physician Chief Complaint: SEATED IN BED NO C/O BILATERAL LEG PAIN NO FEVER/ CHILLS WOUND C/S MIXED ORGANISMS PSEUDOMONAS/ VANCOMYCIN - Current Medication List Current Medications: Active Medications Acetaminophen (Tylenol -) 650 mg PO Q6H PRN PRN Reason: PAIN LEVEL 4 - 6 Last Admin: 05/24/20 19:53 Dose: 650 mg Documented by: Albuterol Sulfate (Ventolin Hfa Inhaler -) 2 puff IH Q4H PRN PRN Reason: SHORT OF BREATH/WHEEZING Ascorbic Acid (Vitamin C -) 500 mg PO DAILY [facility] Last Admin: 05/25/20 10:10 Dose: 500 mg Documented by: Aspirin (Asa -) 81 mg PO DAILY [facility] Last Admin: 05/25/20 10:09 Dose: 81 mg Documented by: Atorvastatin Calcium (Lipitor -) 40 mg PO HS [facility] Last Admin: 05/24/20 22:36 Dose: 40 mg Documented by: Bacitracin (Bacitracin -) 1 applic TP BID [facility] Last Admin: 05/25/20 10:10 Dose: 1 applic Documented by: Bisacodyl (Dulcolax Suppository -) 10 mg LA DAILY PRN PRN Reason: CONSTIPATION Brimonidine Tartrate (Alphagan 0.2% -) 1 drop OS BID [facility] Last Admin: 05/25/20 10:10 Dose: 1 drop Documented by: Docusate Sodium (Colace -) 100 mg PO BID [facility] Last Admin: 05/25/20 10:10 Dose: 100 mg Documented by: Dorzolamide HCl (Trusopt 2%) 1 drop OS BID [facility] Last Admin: 05/25/20 10:11 Dose: 1 drop Documented by: Furosemide (Lasix -) 40 mg PO DAILY [facility] Last Admin: 05/25/20 10:10 Dose: 40 mg Documented by: Gabapentin (Neurontin -) 400 mg PO BID [facility] Last Admin: 05/25/20 10:10 Dose: 400 mg Documented by: Piperacillin Sod/Tazobactam (Sod 2.25 gm/ Dextrose) 50 mls @ 100 mls/hr IVPB Q8H-IV [facility]; Protocol Last Admin: 05/25/20 10:07 Dose: 100 mls/hr Documented by: Vancomycin HCl 500 mg/ (Dextrose) 100 mls @ 100 mls/hr IVPB Q24H [facility]; Protocol Last Admin: 05/24/20 23:42 Dose: 100 mls/hr Documented by: Insulin Aspart (Novolog Vial Sliding Scale -) 1 vial SQ ACHS [facility]; Protocol Last Admin: 05/25/20 12:21 Dose: 2 units Documented by: Isosorbide Mononitrate (Imdur -) 30 mg PO DAILY [facility] Last Admin: 05/25/20 10:10 Dose: 30 mg Documented by: Loratadine (Claritin -) 10 mg PO DAILY [facility] Last Admin: 05/25/20 10:10 Dose: 10 mg Documented by: Metolazone (Zaroxolyn -) 2.5 mg PO DAILY [facility] Last Admin: 05/25/20 10:10 Dose: 2.5 mg Documented by: Multivitamins/Minerals/Vitamin C (Tab-A-Vit -) 1 tab PO DAILY [facility] Last Admin: 05/25/20 10:09 Dose: 1 tab Documented by: Pantoprazole Sodium (Protonix -) 40 mg PO BID [facility] Last Admin: 05/25/20 10:09 Dose: 40 mg Documented by: Polyethylene Glycol (Miralax (For Daily Use) -) 17 gm PO DAILY [facility] Last Admin: 05/25/20 10:08 Dose: 17 gm Documented by: Senna (Senna Oral Solution -) 8.8 mg PO HS [facility] Last Admin: 05/24/20 22:37 Dose: 8.8 mg Documented by: Tizanidine HCl (Tizanidine Hcl) 2 mg PO BID [facility] Last Admin: 05/25/20 10:11 Dose: 2 mg Documented by: - Objective Vital Signs: Vital Signs Temperature 98.1 F 05/25/20 06:54 Pulse Rate 60 05/25/20 06:54 Respiratory Rate 18 05/25/20 06:54 Blood Pressure 97/35 L 05/25/20 06:54 O2 Sat by Pulse Oximetry (%) 97 05/25/20 06:54 Constitutional: Yes: No Distress, Obese Eyes: Yes: Conjunctiva Clear Cardiovascular: Yes: Regular Rate and Rhythm, S1, S2 Respiratory: Yes: Regular Gastrointestinal: Yes: Normal Bowel Sounds, Soft. No: Tenderness Extremities: Yes: Other (BILATERAL LE ERYTHEMA/ SWELLING) Labs: CBC, BMP 05/25/20 07:50 05/25/20 07:50 Assessment/Plan BILATERAL LE CELLULITIS CHRONIC STASIS DERMATITIS [facility] VANCO/ZOSYN
--- NOTE | 2020-05-25 19:18 | PN ---
Physical Exam: SUBJECTIVE: Patient seen and examined at bedside. Less pain today in legs. OBJECTIVE: Vital Signs Period Temp Pulse Resp BP Sys/Emerson Pulse Ox Last 24 Hr 97.9 F-98.2 F 60-69 16-20 97-132/35-57 97-100 GENERAL: NAD HEAD: AT/NC EYES: Left eye corneal clouding ENT: MMM NECK: Trachea midline, full range of motion, supple. LUNGS: Decreased breath sounds HEART: RRR No MRG S1S2 ABDOMEN: Soft, NDNT EXTREMITIES: bilateral venous stasis changes. Edema b/l. Right lower extremity more edematous. Less tender today to palpation. Open wounds healing, non-oozing. Laboratory Results - last 24 hr 05/24/20 05/25/20 05/25/20 22:33 06:15 07:50 WBC 8.6 RBC 3.63 Hgb 11.8 Hct 35.2 MCV 97.0 H MCH 32.4 MCHC 33.4 RDW 16.7 H Plt Count 226 MPV 9.4 Sodium Potassium Chloride Carbon Dioxide Anion Gap BUN Creatinine Est GFR (CKD-EPI)AfAm Est GFR (CKD-EPI)NonAf POC Glucometer 133 205 Random Glucose Calcium Phosphorus Magnesium 05/25/20 05/25/20 05/25/20 07:50 12:02 17:30 WBC RBC Hgb Hct MCV MCH MCHC RDW Plt Count MPV Sodium 135 L Potassium 3.5 Chloride 97 L Carbon Dioxide 29 Anion Gap 9 BUN 40.3 H Creatinine 1.6 H Est GFR (CKD-EPI)AfAm 33.23 Est GFR (CKD-EPI)NonAf 28.67 POC Glucometer 184 150 Random Glucose 166 H Calcium 8.3 L Phosphorus 3.5 Magnesium 2.7 H Active Medications Generic Name Dose Route Start Last Admin Trade Name Freq PRN Reason Stop Dose Admin Acetaminophen 650 mg 05/24/20 19:34 05/24/20 19:53 Tylenol - PO 650 mg Q6H PRN Administration PAIN LEVEL 4 - 6 Albuterol Sulfate 2 puff 05/18/20 04:04 Ventolin Hfa Inhaler - IH Q4H PRN SHORT OF BREATH/WHEEZING Ascorbic Acid 500 mg 05/19/20 10:00 05/25/20 10:10 Vitamin C - PO 500 mg DAILY JOSE ELIAS Administration Aspirin 81 mg 05/19/20 10:00 05/25/20 10:09 Asa - PO 81 mg DAILY JOSE ELIAS Administration Atorvastatin Calcium 40 mg 05/18/20 22:00 05/24/20 22:36 Lipitor - PO 40 mg HS JOSE ELIAS Administration Bacitracin 1 applic 05/21/20 13:45 05/25/20 10:10 Bacitracin - TP 1 applic BID JOSE ELIAS Administration Bisacodyl 10 mg 05/25/20 10:14 Dulcolax Suppository - [place] DAILY PRN CONSTIPATION Brimonidine Tartrate 1 drop 05/19/20 22:00 05/25/20 10:10 Alphagan 0.2% - OS 1 drop BID JOSE ELIAS Administration Docusate Sodium 100 mg 05/18/20 22:00 05/25/20 10:10 Colace - PO 100 mg BID JOSE ELIAS Administration Dorzolamide HCl 1 drop 05/19/20 22:00 05/25/20 10:11 Trusopt 2% OS 1 drop BID JOSE ELIAS Administration Furosemide 40 mg 05/25/20 10:00 05/25/20 10:10 Lasix - PO 40 mg DAILY JOSE ELIAS Administration Gabapentin 400 mg 05/22/20 22:00 05/25/20 10:10 Neurontin - PO 400 mg BID JOSE ELIAS Administration Piperacillin Sod/Tazobactam 50 mls @ 100 mls/hr 05/24/20 22:45 05/25/20 17:32 Sod 2.25 gm/ Dextrose IVPB 100 mls/hr Q8H-IV JOSE ELIAS Administration Protocol Vancomycin HCl 500 mg/ 100 mls @ 100 mls/hr 05/24/20 23:00 05/24/20 23:42 Dextrose IVPB 100 mls/hr Q24H JOSE ELIAS Administration Protocol Insulin Aspart 1 vial 05/18/20 07:00 05/25/20 17:31 Novolog Vial Sliding Scale - SQ Not Given ACHS JOSE ELIAS Protocol Isosorbide Mononitrate 30 mg 05/19/20 10:00 05/25/20 10:10 Imdur - PO 30 mg DAILY JOSE ELIAS Administration Loratadine 10 mg 05/19/20 10:00 05/25/20 10:10 Claritin - PO 10 mg DAILY JOSE ELIAS Administration Metolazone 2.5 mg 05/24/20 13:30 05/25/20 10:10 Zaroxolyn - PO 2.5 mg DAILY JOSE ELIAS Administration Multivitamins/Minerals/Vitamin C 1 tab 05/19/20 10:00 05/25/20 10:09 Tab-A-Vit - PO 1 tab DAILY JOSE ELIAS Administration Pantoprazole Sodium 40 mg 05/18/20 22:00 05/25/20 10:09 Protonix - PO 40 mg BID JOSE ELIAS Administration Polyethylene Glycol 17 gm 05/18/20 10:00 05/25/20 10:08 Miralax (For Daily Use) - PO 17 gm DAILY JOSE ELIAS Administration Senna 8.8 mg 05/21/20 13:37 05/24/20 22:37 Senna Oral Solution - PO 8.8 mg HS JOSE ELIAS Administration Tizanidine HCl 2 mg 05/18/20 15:46 05/25/20 10:11 Tizanidine Hcl PO 2 mg BID JOSE ELIAS Administration ASSESSMENT/PLAN: Patient is an 85 year old female with history of COPD (on home oxygen 2L), coronary artery disease (s/p stents), hyperlipidemia, diabetes mellitus (insulin dependnet), gastro-esophageal reflux, left eye blindness presents with complaint of left lower extremity pain. Left lower extremity pain -CT pelvis, left lower extremity does nor reveal acute fracture, or pathology to explain patient's symptoms -Duplex bilateral lower extremities negative for DVT -Tizanidine, Acetaminophen -Physical therapy evaluation -Ortho on board----> Patient's symptoms, PE and imaging are most consistent with DJD -Fall precautions Bilateral lower extremity Cellulitis -Wound Culture MRSA and Pseudomonas. Patient antibiotics switched to Vanc and Zosyn. -ID on board. Recs appreciated. Monitor for fever, trend CBC Acute kidney injury Cr 1.6 today. Trend BMP. Coronary artery disease -Continue home Aspirin, Atorvastatin, Isosorbide mononitrate HEFpEF Lasix 40 PO Daily Diabetes mellitus -Insulin sliding scale ACHS -Fingerstick blood glucose ACHS FEN -No Fluids -Follow BMP -Diabetic diet, sodium modification Prophylaxis -Heparin 5000units subq TID Disposition -Med-Surg Visit type - Emergency Visit Emergency Visit: Yes ED Registration Date: 05/17/20 Care time: The patient presented to the Emergency Department on the above date and was hospitalized for further evaluation of their emergent condition. - New Patient This patient is new to me today: No - Critical Care Critical Care patient: No - Discharge Referral Referred to [facility] Med P.C.: No - Medication Review Med list reviewed for High Risk Meds patients 65 and older: Yes ATTENDING PHYSICIAN STATEMENT I saw and evaluated the patient. I reviewed the resident's note and discussed the case with the resident. I agree with the resident's findings and plan as documented. SUBJECTIVE: OBJECTIVE: ASSESSMENT AND PLAN:
[2020-05-25] MEDS: ATORVASTATIN CA 40 MG TABLET (FP) PO SCH (21:21)
[2020-05-25] MEDS: SENNOSIDES 8.8 MG/5 ML BULK BOTTLE PO SCH (21:24)
[2020-05-25] MEDS: VANCOMYCIN 500 MG in DEXTROSE 5%-WATER 100 ML IVPB SCH (23:04)
[2020-05-26] MEDS ORDERED: PIPERACILLIN/TAZOBACTAM 2.25 GM VIAL IVPB ONE ×3 (02:00→17:43)
[2020-05-26] MEDS ORDERED: DEXTROSE 5%-WATER - 50 ML IVPB ONE ×3 (02:00→17:43)
[2020-05-26] MEDS: PIPERACILLIN/TAZOB 2.25 GM 2.25 GM in DEXTROSE 5%-WATER - 50 ML IVPB SCH ×3 (02:08→18:02)
[2020-05-26] MEDS: INSULIN SLIDING SCALE (NOVOLOG) 1 VIAL SQ SCH ×4 (06:32→23:22)
[2020-05-26 08:24] LABS: BLOOD UREA NITROGEN 41.7 mg/dL (7-18); CALCIUM 8.2 mg/dL (8.5-10.1); CREATININE 1.6 mg/dL (0.55-1.3); MAGNESIUM 2.4 mg/dL (1.8-2.4); PHOSPHOROUS 3.6 mg/dL (2.5-4.9); POTASSIUM 3.5 mmol/L (3.5-5.1)
[2020-05-26 08:26] LABS: HEMATOCRIT 36.2 % (32.4-45.2); HEMOGLOBIN 12.2 GM/dL (10.7-15.3); MCH 32.5 pg (25.7-33.7); MCHC 33.6 g/dl (32.0-36.0); MEAN CELL VOLUME 96.7 fl (80-96); MEAN PLT VOLUME 9.4 fl (7.5-11.1); PLATELET COUNT 247 K/MM3 (134-434); RBC 3.75 M/mm3 (3.60-5.2); RDW 16.3 % (11.6-15.6); WHITE BLOOD COUNT 8.8 K/mm3 (4.0-10.0)
[2020-05-26] MEDS ORDERED: PT OWN MED DRAWER 7, Y5N ONE ×2 (10:10→22:17)
[2020-05-26] MEDS: ASPIRIN 81 MG CHEWABLE TABLETS PO SCH (10:13)
[2020-05-26] MEDS: PANTOPRAZOLE 40 MG TABLET PO SCH ×2 (10:13→22:19)
[2020-05-26] MEDS: LORATADINE 10 MG TABLET PO SCH (10:13)
[2020-05-26] MEDS: DOCUSATE SODIUM 100 MG CAPSULE (FP) PO SCH ×2 (10:13→22:19)
[2020-05-26] MEDS: ISOSORBIDE MONONITRATE 30 MG TAB.SR.24H (FP) PO SCH (10:13)
[2020-05-26] MEDS: POLYETHYLENE GLYCOL 3350 119 GM BTL PO SCH (10:14)
[2020-05-26] MEDS: MULTIVITAMINS (DAILY MVI) TABLET (FP) PO SCH (10:14)
[2020-05-26] MEDS: GABAPENTIN 400 MG CAPSULE PO SCH ×2 (10:15→23:21)
[2020-05-26] MEDS: BACITRACIN 15 GM TUBE TOPICAL OINTMENT TP SCH ×2 (10:15→22:20)
[2020-05-26] MEDS: TIZANIDINE HCL 2 MG TABLET PO SCH ×2 (10:15→23:22)
[2020-05-26] MEDS: DORZOLAMIDE 2% HCL OPHTHALMIC SOLUTION 10 ML BOTTLE OS SCH ×2 (10:15→22:20)
[2020-05-26] MEDS: ASCORBIC ACID 500 MG TABLET (FP) PO SCH (10:15)
[2020-05-26] MEDS: BRIMONIDINE TARTRATE 0.2% OPHTHALMIC 5 ML BOTTLE OS SCH ×2 (10:15→22:20)
--- NOTE | 2020-05-26 12:56 | PN ---
Teaching Attending Note Name of Resident: Abdoul Osborne ATTENDING PHYSICIAN STATEMENT I saw and evaluated the patient. I reviewed the resident's note and discussed the case with the resident. I agree with the resident's findings and plan as documented. SUBJECTIVE: Seen and examined at bedside. Legs slowly improving. Will discuss duration of tx with ID OBJECTIVE Last Vital Signs Temp Pulse Resp BP Pulse Ox 97.2 F L 66 18 99/58 L 96 05/26/20 07:04 05/26/20 07:04 05/26/20 07:04 05/26/20 07:04 05/26/20 07:04 PE: Per resident note Labs/Imaging: reviewed ASSESSMENT/PLAN 85-year-old female with a history of NSTEMI status post stent, chronic diastolic CHF, COPD on 2 L nasal cannula, HLD, IDDM, venous insufficiency, chronic bilateral lower extremity wounds presents with severe hip and knee pain, CAROLYN, and cellulitis #bilateral Lower extremity cellulitis -wound culture polymicrobial positive for MRSA, pseudomonas: switched to vanco/zosyn -ID on board: appreciate recs -will clarify expected length of tx with ID #Left hip pain Still in pain but improved mobility today. No longer with impaired proprioception No known trauma per ortho symptoms most consistent with DJD. Recommend pain control and outpt management -pain control #CAROLYN: 2/2 diuresis -hold lasix/metolazone today. 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
--- NOTE | 2020-05-26 19:42 | PN ---
Physical Exam: SUBJECTIVE: Patient seen and examined at bedside. No acute events overnight. OBJECTIVE: Vital Signs Period Temp Pulse Resp BP Sys/Emerson Pulse Ox Last 24 Hr 97.2 F-98.6 F 55-66 18-18 99-121/48-58 95-99 GENERAL: No acute distress HEAD: AT/NC EYES: Left eye corneal clouding ENT: MMM NECK: Trachea midline, full range of motion, supple. LUNGS: Clear Bilaterally HEART: RRR No MRG S1S2 ABDOMEN: Soft, NDNT EXTREMITIES: bilateral venous stasis changes. Calfs less tender than before. Still some edema bilaterally. Wounds healed. Laboratory Results - last 24 hr 05/25/20 05/26/20 05/26/20 21:18 05:53 07:32 WBC 8.8 RBC 3.75 Hgb 12.2 Hct 36.2 MCV 96.7 H MCH 32.5 MCHC 33.6 RDW 16.3 H Plt Count 247 MPV 9.4 Sodium Potassium Chloride Carbon Dioxide Anion Gap BUN Creatinine Est GFR (CKD-EPI)AfAm Est GFR (CKD-EPI)NonAf POC Glucometer 235 193 Random Glucose Calcium Phosphorus Magnesium 05/26/20 05/26/20 05/26/20 07:32 12:17 16:46 WBC RBC Hgb Hct MCV MCH MCHC RDW Plt Count MPV Sodium 133 L Potassium 3.5 Chloride 95 L Carbon Dioxide 29 Anion Gap 9 BUN 41.7 H Creatinine 1.6 H Est GFR (CKD-EPI)AfAm 33.23 Est GFR (CKD-EPI)NonAf 28.67 POC Glucometer 209 180 Random Glucose 178 H Calcium 8.2 L Phosphorus 3.6 Magnesium 2.4 Active Medications Generic Name Dose Route Start Last Admin Trade Name Freq PRN Reason Stop Dose Admin Acetaminophen 650 mg 05/24/20 19:34 05/24/20 19:53 Tylenol - PO 650 mg Q6H PRN Administration PAIN LEVEL 4 - 6 Albuterol Sulfate 2 puff 05/18/20 04:04 Ventolin Hfa Inhaler - IH Q4H PRN SHORT OF BREATH/WHEEZING Ascorbic Acid 500 mg 05/19/20 10:00 05/26/20 10:15 Vitamin C - PO 500 mg DAILY JOSE ELIAS Administration Aspirin 81 mg 05/19/20 10:00 05/26/20 10:13 Asa - PO 81 mg DAILY JOSE ELIAS Administration Atorvastatin Calcium 40 mg 05/18/20 22:00 05/25/20 21:21 Lipitor - PO 40 mg HS JOSE ELIAS Administration Bacitracin 1 applic 05/21/20 13:45 05/26/20 10:15 Bacitracin - TP 1 applic BID JOSE ELIAS Administration Bisacodyl 10 mg 05/25/20 10:14 05/26/20 10:13 Dulcolax Suppository - [place] 10 mg DAILY PRN Administration CONSTIPATION Brimonidine Tartrate 1 drop 05/19/20 22:00 05/26/20 10:15 Alphagan 0.2% - OS 1 drop BID JOSE ELIAS Administration Docusate Sodium 100 mg 05/18/20 22:00 05/26/20 10:13 Colace - PO 100 mg BID JOSE ELIAS Administration Dorzolamide HCl 1 drop 05/19/20 22:00 05/26/20 10:15 Trusopt 2% OS 1 drop BID JOSE ELIAS Administration Furosemide 40 mg 05/25/20 10:00 05/25/20 10:10 Lasix - PO 40 mg DAILY JOSE ELIAS Administration Gabapentin 400 mg 05/22/20 22:00 05/26/20 10:15 Neurontin - PO 400 mg BID JOSE ELIAS Administration Piperacillin Sod/Tazobactam 50 mls @ 100 mls/hr 05/24/20 22:45 05/26/20 18:02 Sod 2.25 gm/ Dextrose IVPB 100 mls/hr Q8H-IV JOSE ELIAS Administration Protocol Vancomycin HCl 500 mg/ 100 mls @ 100 mls/hr 05/24/20 23:00 05/25/20 23:04 Dextrose IVPB 100 mls/hr Q24H JOSE ELIAS Administration Protocol Insulin Aspart 1 vial 05/18/20 07:00 05/26/20 16:48 Novolog Vial Sliding Scale - SQ 2 units ACHS JOSE ELIAS Administration Protocol Isosorbide Mononitrate 30 mg 05/19/20 10:00 05/26/20 10:13 Imdur - PO 30 mg DAILY JOSE ELIAS Administration Loratadine 10 mg 05/19/20 10:00 05/26/20 10:13 Claritin - PO 10 mg DAILY JOSE ELIAS Administration Metolazone 2.5 mg 05/24/20 13:30 05/25/20 10:10 Zaroxolyn - PO 2.5 mg DAILY JOSE ELIAS Administration Multivitamins/Minerals/Vitamin C 1 tab 05/19/20 10:00 05/26/20 10:14 Tab-A-Vit - PO 1 tab DAILY JOSE ELIAS Administration Pantoprazole Sodium 40 mg 05/18/20 22:00 05/26/20 10:13 Protonix - PO 40 mg BID JOSE ELIAS Administration Polyethylene Glycol 17 gm 05/18/20 10:00 05/26/20 10:14 Miralax (For Daily Use) - PO 17 gm DAILY JOSE ELIAS Administration Senna 8.8 mg 05/21/20 13:37 05/25/20 21:24 Senna Oral Solution - PO 8.8 mg HS JOSE ELIAS Administration Tizanidine HCl 2 mg 05/18/20 15:46 05/26/20 10:15 Tizanidine Hcl PO 2 mg BID JOSE ELIAS Administration ASSESSMENT/PLAN: Patient is an 85 year old female with history of COPD (on home oxygen 2L), coronary artery disease (s/p stents), hyperlipidemia, diabetes mellitus (insulin dependnet), gastro-esophageal reflux, left eye blindness presents with complaint of left lower extremity pain. Left lower extremity pain -CT pelvis, left lower extremity does nor reveal acute fracture, or pathology to explain patient's symptoms -Duplex bilateral lower extremities negative for DVT -Tizanidine, Acetaminophen -Physical therapy evaluation -Ortho on board----> Patient's symptoms, PE and imaging are most consistent with DJD -Fall precautions Bilateral lower extremity Cellulitis -Wound Culture MRSA and Pseudomonas. Patient antibiotics switched to Vanc and Zosyn. Will clarify with ID if patient can switch to PO ABx. -ID on board. Recs appreciated. Monitor for fever, trend CBC Acute kidney injury Cr 1.6 today. Trend BMP. Coronary artery disease -Continue home Aspirin, Atorvastatin, Isosorbide mononitrate HEFpEF Lasix 40 PO Daily Diabetes mellitus -Insulin sliding scale ACHS -Fingerstick blood glucose ACHS FEN -No Fluids -Follow BMP -Diabetic diet, sodium modification Prophylaxis -Heparin 5000units subq TID Disposition -Med-Surg Visit type - Emergency Visit Emergency Visit: Yes ED Registration Date: 05/17/20 Care time: The patient presented to the Emergency Department on the above date and was hospitalized for further evaluation of their emergent condition. - New Patient This patient is new to me today: No - Critical Care Critical Care patient: No - Discharge Referral Referred to [facility] Med P.C.: No - Medication Review Med list reviewed for High Risk Meds patients 65 and older: Yes ATTENDING PHYSICIAN STATEMENT I saw and evaluated the patient. I reviewed the resident's note and discussed the case with the resident. I agree with the resident's findings and plan as documented. SUBJECTIVE: OBJECTIVE: ASSESSMENT AND PLAN:
[2020-05-26] MEDS: ATORVASTATIN CA 40 MG TABLET (FP) PO SCH (22:19)
--- NOTE | 2020-05-26 23:15 | PN ---
Progress Note, Physician Chief Complaint: SEATED OOB IN CHAIR LETHARGIC NO FEVER/ CHILLS WOUND C/S MIXED ORGANISMS PSEUDOMONAS/ VANCOMYCIN - Current Medication List Current Medications: Active Medications Acetaminophen (Tylenol -) 650 mg PO Q6H PRN PRN Reason: PAIN LEVEL 4 - 6 Last Admin: 05/24/20 19:53 Dose: 650 mg Documented by: Albuterol Sulfate (Ventolin Hfa Inhaler -) 2 puff IH Q4H PRN PRN Reason: SHORT OF BREATH/WHEEZING Ascorbic Acid (Vitamin C -) 500 mg PO DAILY [facility] Last Admin: 05/26/20 10:15 Dose: 500 mg Documented by: Aspirin (Asa -) 81 mg PO DAILY [facility] Last Admin: 05/26/20 10:13 Dose: 81 mg Documented by: Atorvastatin Calcium (Lipitor -) 40 mg PO HS [facility] Last Admin: 05/26/20 22:19 Dose: 40 mg Documented by: Bacitracin (Bacitracin -) 1 applic TP BID [facility] Last Admin: 05/26/20 22:20 Dose: 1 applic Documented by: Bisacodyl (Dulcolax Suppository -) 10 mg [place] DAILY PRN PRN Reason: CONSTIPATION Last Admin: 05/26/20 10:13 Dose: 10 mg Documented by: Brimonidine Tartrate (Alphagan 0.2% -) 1 drop OS BID [facility] Last Admin: 05/26/20 22:20 Dose: 1 drop Documented by: Docusate Sodium (Colace -) 100 mg PO BID [facility] Last Admin: 05/26/20 22:19 Dose: 100 mg Documented by: Dorzolamide HCl (Trusopt 2%) 1 drop OS BID [facility] Last Admin: 05/26/20 22:20 Dose: 1 drop Documented by: Furosemide (Lasix -) 40 mg PO DAILY [facility] Last Admin: 05/25/20 10:10 Dose: 40 mg Documented by: Gabapentin (Neurontin -) 400 mg PO BID [facility] Last Admin: 05/26/20 10:15 Dose: 400 mg Documented by: Piperacillin Sod/Tazobactam (Sod 2.25 gm/ Dextrose) 50 mls @ 100 mls/hr IVPB Q8H-IV JOSE ELIAS; Protocol Last Admin: 05/26/20 18:02 Dose: 100 mls/hr Documented by: Vancomycin HCl 500 mg/ (Dextrose) 100 mls @ 100 mls/hr IVPB Q24H [facility]; Protocol Last Admin: 05/25/20 23:04 Dose: 100 mls/hr Documented by: Insulin Aspart (Novolog Vial Sliding Scale -) 1 vial SQ ACHS [facility]; Protocol Last Admin: 05/26/20 16:48 Dose: 2 units Documented by: Isosorbide Mononitrate (Imdur -) 30 mg PO DAILY [facility] Last Admin: 05/26/20 10:13 Dose: 30 mg Documented by: Loratadine (Claritin -) 10 mg PO DAILY [facility] Last Admin: 05/26/20 10:13 Dose: 10 mg Documented by: Metolazone (Zaroxolyn -) 2.5 mg PO DAILY [facility] Last Admin: 05/25/20 10:10 Dose: 2.5 mg Documented by: Multivitamins/Minerals/Vitamin C (Tab-A-Vit -) 1 tab PO DAILY [facility] Last Admin: 05/26/20 10:14 Dose: 1 tab Documented by: Pantoprazole Sodium (Protonix -) 40 mg PO BID [facility] Last Admin: 05/26/20 22:19 Dose: 40 mg Documented by: Polyethylene Glycol (Miralax (For Daily Use) -) 17 gm PO DAILY [facility] Last Admin: 05/26/20 10:14 Dose: 17 gm Documented by: Senna (Senna Oral Solution -) 8.8 mg PO HS [facility] Last Admin: 05/25/20 21:24 Dose: 8.8 mg Documented by: Tizanidine HCl (Tizanidine Hcl) 2 mg PO BID [facility] Last Admin: 05/26/20 10:15 Dose: 2 mg Documented by: - Objective Vital Signs: Vital Signs Temperature 98.0 F 05/26/20 18:00 Pulse Rate 55 L 05/26/20 18:00 Respiratory Rate 18 05/26/20 18:00 Blood Pressure 116/52 L 05/26/20 18:00 O2 Sat by Pulse Oximetry (%) 98 05/26/20 18:00 Constitutional: Yes: No Distress, Obese Cardiovascular: Yes: Regular Rate and Rhythm, S1, S2 Respiratory: Yes: Diminished Gastrointestinal: Yes: Normal Bowel Sounds, Soft Extremities: Yes: Other (B/L LE REMAIN ERYTHEMATOUS) Edema: Yes Labs: CBC, BMP 05/26/20 07:32 05/26/20 07:32 Assessment/Plan BILATERAL LE CELLULITIS CHRONIC STASIS DERMATITIS AZOTEMIA CONTINUE VANCO/ZOSYN ELEVATION
[2020-05-26] MEDS: SENNOSIDES 8.8 MG/5 ML BULK BOTTLE PO SCH (23:21)
[2020-05-26] MEDS: VANCOMYCIN 500 MG in DEXTROSE 5%-WATER 100 ML IVPB SCH (23:23)
[2020-05-27] MEDS ORDERED: DEXTROSE 5%-WATER - 50 ML IVPB ONE ×3 (01:28→16:40)
[2020-05-27] MEDS ORDERED: PIPERACILLIN/TAZOBACTAM 2.25 GM VIAL IVPB ONE ×3 (01:28→16:39)
[2020-05-27] MEDS: PIPERACILLIN/TAZOB 2.25 GM 2.25 GM in DEXTROSE 5%-WATER - 50 ML IVPB SCH ×4 (01:40→17:33)
[2020-05-27] MEDS: INSULIN SLIDING SCALE (NOVOLOG) 1 VIAL SQ SCH ×4 (06:42→22:37)
[2020-05-27 08:41] LABS: HEMATOCRIT 36.7 % (32.4-45.2); HEMOGLOBIN 12.5 GM/dL (10.7-15.3); MCH 33.1 pg (25.7-33.7); MEAN CELL VOLUME 97.5 fl (80-96); MEAN PLT VOLUME 9.7 fl (7.5-11.1); PLATELET COUNT 226 K/MM3 (134-434); RBC 3.76 M/mm3 (3.60-5.2); RDW 16.8 % (11.6-15.6); WHITE BLOOD COUNT 6.2 K/mm3 (4.0-10.0)
[2020-05-27 09:08] LABS: BLOOD UREA NITROGEN 45.5 mg/dL (7-18); CALCIUM 8.6 mg/dL (8.5-10.1); CREATININE 1.4 mg/dL (0.55-1.3); MAGNESIUM 2.7 mg/dL (1.8-2.4); PHOSPHOROUS 3.6 mg/dL (2.5-4.9); POTASSIUM 3.6 mmol/L (3.5-5.1)
[2020-05-27] MEDS ORDERED: PT OWN MED DRAWER 7, Y5N ONE ×2 (11:26→21:53)
[2020-05-27] MEDS: ASPIRIN 81 MG CHEWABLE TABLETS PO SCH (11:36)
[2020-05-27] MEDS: BACITRACIN 15 GM TUBE TOPICAL OINTMENT TP SCH ×2 (11:36→21:55)
[2020-05-27] MEDS: BRIMONIDINE TARTRATE 0.2% OPHTHALMIC 5 ML BOTTLE OS SCH ×2 (11:36→21:55)
[2020-05-27] MEDS: MULTIVITAMINS (DAILY MVI) TABLET (FP) PO SCH (11:37)
[2020-05-27] MEDS: DOCUSATE SODIUM 100 MG CAPSULE (FP) PO SCH ×2 (11:37→21:54)
[2020-05-27] MEDS: METOLAZONE 2.5 MG TABLET (FP) PO SCH (11:37)
[2020-05-27] MEDS: FUROSEMIDE 40 MG TABLET (FP) PO SCH (11:37)
[2020-05-27] MEDS: PANTOPRAZOLE 40 MG TABLET PO SCH ×2 (11:37→21:54)
[2020-05-27] MEDS: LORATADINE 10 MG TABLET PO SCH (11:37)
[2020-05-27] MEDS: ASCORBIC ACID 500 MG TABLET (FP) PO SCH (11:37)
[2020-05-27] MEDS: ISOSORBIDE MONONITRATE 30 MG TAB.SR.24H (FP) PO SCH (11:38)
[2020-05-27] MEDS: GABAPENTIN 400 MG CAPSULE PO SCH ×2 (11:39→22:26)
[2020-05-27] MEDS: POLYETHYLENE GLYCOL 3350 119 GM BTL PO SCH (11:39)
[2020-05-27] MEDS: TIZANIDINE HCL 2 MG TABLET PO SCH ×2 (11:40→22:29)
[2020-05-27] MEDS: DORZOLAMIDE 2% HCL OPHTHALMIC SOLUTION 10 ML BOTTLE OS SCH ×2 (11:41→21:55)
--- NOTE | 2020-05-27 12:51 | PN ---
Teaching Attending Note Name of Resident: Abdoul Osborne ATTENDING PHYSICIAN STATEMENT I saw and evaluated the patient. I reviewed the resident's note and discussed the case with the resident. I agree with the resident's findings and plan as documented. SUBJECTIVE: Seen and examined at bedside. Legs slowly improving. Pt's assisted living faci lity will not administer IV abx and pt does not want to go to SNF so pt will need to complete remainder of abx regimen inpt. OBJECTIVE Last Vital Signs Temp Pulse Resp BP Pulse Ox 97.8 F 55 L 18 112/50 L 98 05/27/20 06:00 05/27/20 06:00 05/27/20 06:00 05/27/20 06:00 05/27/20 06:00 PE: Per resident note Labs/Imaging: reviewed ASSESSMENT/PLAN 85-year-old female with a history of NSTEMI status post stent, chronic diastolic CHF, COPD on 2 L nasal cannula, HLD, IDDM, venous insufficiency, chronic bilateral lower extremity wounds presents with severe hip and knee pain, CAROLYN, and cellulitis #bilateral Lower extremity cellulitis -wound culture polymicrobial positive for MRSA, pseudomonas: switched to vanco/zosyn -ID on board: appreciate recs -will clarify expected length of tx with ID: likely 7 days #Left hip pain Still in pain but improved mobility today. No longer with impaired proprioception No known trauma per ortho symptoms most consistent with DJD. Recommend pain control and outpt management -pain control #CAROLYN: improving 2/2 diuresis -restart lasix/metolazone today. Hold nephrotoxic medications #Diastolic CHF -holding diuresis today 2/2 CAROLYN #HTN -cont imdur #CAD -cont asa/statin
--- NOTE | 2020-05-27 19:25 | PN ---
Physical Exam: SUBJECTIVE: Patient seen and examined at bedside. No acute events overnight. OBJECTIVE: Vital Signs Period Temp Pulse Resp BP Sys/Emerson Pulse Ox Last 24 Hr 97.8 F-98.4 F 53-70 16-18 91-112/46-62 94-98 GENERAL: NAD HEAD: AT/NC EYES: Left eye corneal clouding ENT: MMM NECK: Trachea midline, full range of motion, supple. LUNGS: Faint crackles lower bases HEART: +KERWIN S1S2 ABDOMEN: Soft, NDNT EXTREMITIES: bilateral venous stasis changes. Left lower extremity calf is slightly larger compared to right, skin is taut. less tender to palpation. Wounds are healed. Laboratory Results - last 24 hr 05/26/20 05/27/20 05/27/20 22:27 06:41 07:30 WBC 6.2 RBC 3.76 Hgb 12.5 Hct 36.7 MCV 97.5 H MCH 33.1 MCHC 34.0 RDW 16.8 H Plt Count 226 MPV 9.7 Sodium Potassium Chloride Carbon Dioxide Anion Gap BUN Creatinine Est GFR (CKD-EPI)AfAm Est GFR (CKD-EPI)NonAf POC Glucometer 163 188 Random Glucose Calcium Phosphorus Magnesium 05/27/20 05/27/20 05/27/20 07:30 11:48 16:47 WBC RBC Hgb Hct MCV MCH MCHC RDW Plt Count MPV Sodium 135 L Potassium 3.6 Chloride 97 L Carbon Dioxide 29 Anion Gap 9 BUN 45.5 H Creatinine 1.4 H Est GFR (CKD-EPI)AfAm 39.06 Est GFR (CKD-EPI)NonAf 33.70 POC Glucometer 208 221 Random Glucose 173 H Calcium 8.6 Phosphorus 3.6 Magnesium 2.7 H Active Medications Generic Name Dose Route Start Last Admin Trade Name Freq PRN Reason Stop Dose Admin Acetaminophen 650 mg 05/24/20 19:34 05/24/20 19:53 Tylenol - PO 650 mg Q6H PRN Administration PAIN LEVEL 4 - 6 Albuterol Sulfate 2 puff 05/18/20 04:04 Ventolin Hfa Inhaler - IH Q4H PRN SHORT OF BREATH/WHEEZING Ascorbic Acid 500 mg 05/19/20 10:00 05/27/20 11:37 Vitamin C - PO 500 mg DAILY JOSE ELIAS Administration Aspirin 81 mg 05/19/20 10:00 05/27/20 11:36 Asa - PO 81 mg DAILY JOSE ELIAS Administration Atorvastatin Calcium 40 mg 05/18/20 22:00 05/26/20 22:19 Lipitor - PO 40 mg HS JOSE ELIAS Administration Bacitracin 1 applic 05/21/20 13:45 05/27/20 11:36 Bacitracin - TP 1 applic BID JOSE ELIAS Administration Bisacodyl 10 mg 05/25/20 10:14 05/26/20 10:13 Dulcolax Suppository - [place] 10 mg DAILY PRN Administration CONSTIPATION Brimonidine Tartrate 1 drop 05/19/20 22:00 05/27/20 11:36 Alphagan 0.2% - OS 1 drop BID JOSE ELIAS Administration Docusate Sodium 100 mg 05/18/20 22:00 05/27/20 11:37 Colace - PO 100 mg BID JOSE ELIAS Administration Dorzolamide HCl 1 drop 05/19/20 22:00 05/27/20 11:41 Trusopt 2% OS 1 drop BID JOSE EILAS Administration Furosemide 40 mg 05/25/20 10:00 05/27/20 11:37 Lasix - PO 40 mg DAILY JOSE ELIAS Administration Gabapentin 400 mg 05/22/20 22:00 05/27/20 11:39 Neurontin - PO 400 mg BID JOSE ELIAS Administration Piperacillin Sod/Tazobactam 50 mls @ 100 mls/hr 05/24/20 22:45 05/27/20 17:33 Sod 2.25 gm/ Dextrose IVPB 100 mls/hr Q8H-IV JOSE ELIAS Administration Protocol Vancomycin HCl 500 mg/ 100 mls @ 100 mls/hr 05/24/20 23:00 05/26/20 23:23 Dextrose IVPB 100 mls/hr Q24H JOSE ELIAS Administration Protocol Insulin Aspart 1 vial 05/18/20 07:00 05/27/20 16:49 Novolog Vial Sliding Scale - SQ 4 units ACHS JOSE ELIAS Administration Protocol Isosorbide Mononitrate 30 mg 05/19/20 10:00 05/27/20 11:38 Imdur - PO 30 mg DAILY JOSE ELIAS Administration Loratadine 10 mg 05/19/20 10:00 05/27/20 11:37 Claritin - PO 10 mg DAILY JOSE ELIAS Administration Metolazone 2.5 mg 05/24/20 13:30 05/27/20 11:37 Zaroxolyn - PO 2.5 mg DAILY JOSE ELIAS Administration Multivitamins/Minerals/Vitamin C 1 tab 05/19/20 10:00 05/27/20 11:37 Tab-A-Vit - PO 1 tab DAILY JOSE ELIAS Administration Pantoprazole Sodium 40 mg 05/18/20 22:00 05/27/20 11:37 Protonix - PO 40 mg BID JOSE ELIAS Administration Polyethylene Glycol 17 gm 05/18/20 10:00 05/27/20 11:39 Miralax (For Daily Use) - PO Not Given DAILY JOSE ELIAS Senna 8.8 mg 05/21/20 13:37 05/26/20 23:21 Senna Oral Solution - PO 8.8 mg HS JOSE ELIAS Administration Tizanidine HCl 2 mg 05/18/20 15:46 05/27/20 11:40 Tizanidine Hcl PO 2 mg BID JOSE ELIAS Administration ASSESSMENT/PLAN: Patient is an 85 year old female with history of COPD (on home oxygen 2L), coronary artery disease (s/p stents), hyperlipidemia, diabetes mellitus (insulin dependnet), gastro-esophageal reflux, left eye blindness presents with complaint of left lower extremity pain. Left lower extremity pain -CT pelvis, left lower extremity does nor reveal acute fracture, or pathology to explain patient's symptoms -Duplex bilateral lower extremities negative for DVT -Tizanidine, Acetaminophen -Physical therapy evaluation -Ortho on board----> Patient's symptoms, PE and imaging are most consistent with DJD -Fall precautions Bilateral lower extremity Cellulitis -Wound Culture MRSA and Pseudomonas. Vanc and Zosyn. Contacted [facility], states that they do not accept patient's with PICC lines. Patient declining SNF. Will finish course of ABx treatment here. -ID on board. Recs appreciated. Monitor for fever, trend CBC Acute kidney injury Cr 1.4 today. Trend BMP. Coronary artery disease -Continue home Aspirin, Atorvastatin, Isosorbide mononitrate HEFpEF Lasix 40 PO Daily Diabetes mellitus -Insulin sliding scale ACHS -Fingerstick blood glucose ACHS FEN -No Fluids -Follow BMP -Diabetic diet, sodium modification Prophylaxis -Heparin 5000units subq TID Disposition -Med-Surg Visit type - Emergency Visit Emergency Visit: Yes ED Registration Date: 05/17/20 Care time: The patient presented to the Emergency Department on the above date and was hospitalized for further evaluation of their emergent condition. - New Patient This patient is new to me today: No - Critical Care Critical Care patient: No - Discharge Referral Referred to [facility] No - Medication Review Med list reviewed for High Risk Meds patients 65 and older: Yes ATTENDING PHYSICIAN STATEMENT I saw and evaluated the patient. I reviewed the resident's note and discussed the case with the resident. I agree with the resident's findings and plan as documented. SUBJECTIVE: OBJECTIVE: ASSESSMENT AND PLAN:
[2020-05-27] MEDS: ATORVASTATIN CA 40 MG TABLET (FP) PO SCH (21:54)
[2020-05-27] MEDS: SENNOSIDES 8.8 MG/5 ML BULK BOTTLE PO SCH (21:54)
[2020-05-27] MEDS: VANCOMYCIN 500 MG in DEXTROSE 5%-WATER 100 ML IVPB SCH (22:29)
[2020-05-28] MEDS ORDERED: DEXTROSE 5%-WATER - 50 ML IVPB ONE ×3 (01:45→16:54)
[2020-05-28] MEDS ORDERED: PIPERACILLIN/TAZOBACTAM 2.25 GM VIAL IVPB ONE ×3 (01:45→16:54)
[2020-05-28] MEDS: PIPERACILLIN/TAZOB 2.25 GM 2.25 GM in DEXTROSE 5%-WATER - 50 ML IVPB SCH ×3 (02:21→18:13)
[2020-05-28] MEDS: INSULIN SLIDING SCALE (NOVOLOG) 1 VIAL SQ SCH ×4 (06:39→21:16)
[2020-05-28] MEDS ORDERED: PT OWN MED DRAWER 7, Y5N ONE ×4 (06:47→20:20)
[2020-05-28 08:28] LABS: HEMATOCRIT 36.3 % (32.4-45.2); HEMOGLOBIN 12.1 GM/dL (10.7-15.3); MCH 32.2 pg (25.7-33.7); MCHC 33.3 g/dl (32.0-36.0); MEAN CELL VOLUME 96.7 fl (80-96); MEAN PLT VOLUME 9.3 fl (7.5-11.1); PLATELET COUNT 246 K/MM3 (134-434); RBC 3.75 M/mm3 (3.60-5.2); RDW 16.4 % (11.6-15.6); WHITE BLOOD COUNT 6.3 K/mm3 (4.0-10.0)
[2020-05-28 08:31] LABS: BLOOD UREA NITROGEN 47.9 mg/dL (7-18); CALCIUM 8.7 mg/dL (8.5-10.1); CREATININE 1.5 mg/dL (0.55-1.3); MAGNESIUM 2.6 mg/dL (1.8-2.4); PHOSPHOROUS 4.2 mg/dL (2.5-4.9); POTASSIUM 3.6 mmol/L (3.5-5.1)
[2020-05-28] MEDS: BACITRACIN 15 GM TUBE TOPICAL OINTMENT TP SCH ×2 (09:40→23:11)
[2020-05-28] MEDS: DOCUSATE SODIUM 100 MG CAPSULE (FP) PO SCH ×2 (09:41→21:03)
[2020-05-28] MEDS: FUROSEMIDE 40 MG TABLET (FP) PO SCH (09:41)
[2020-05-28] MEDS: ISOSORBIDE MONONITRATE 30 MG TAB.SR.24H (FP) PO SCH (09:41)
[2020-05-28] MEDS: PANTOPRAZOLE 40 MG TABLET PO SCH ×2 (09:41→21:03)
[2020-05-28] MEDS: ASPIRIN 81 MG CHEWABLE TABLETS PO SCH (09:41)
[2020-05-28] MEDS: MULTIVITAMINS (DAILY MVI) TABLET (FP) PO SCH (09:41)
[2020-05-28] MEDS: BRIMONIDINE TARTRATE 0.2% OPHTHALMIC 5 ML BOTTLE OS SCH ×2 (09:41→21:04)
[2020-05-28] MEDS: ASCORBIC ACID 500 MG TABLET (FP) PO SCH (09:41)
[2020-05-28] MEDS: POLYETHYLENE GLYCOL 3350 119 GM BTL PO SCH (09:42)
[2020-05-28] MEDS: METOLAZONE 2.5 MG TABLET (FP) PO SCH (09:42)
[2020-05-28] MEDS: LORATADINE 10 MG TABLET PO SCH (09:42)
[2020-05-28] MEDS: TIZANIDINE HCL 2 MG TABLET PO SCH ×2 (09:43→21:05)
[2020-05-28] MEDS: GABAPENTIN 400 MG CAPSULE PO SCH ×2 (09:43→21:04)
[2020-05-28] MEDS: DORZOLAMIDE 2% HCL OPHTHALMIC SOLUTION 10 ML BOTTLE OS SCH ×2 (09:43→21:05)
--- NOTE | 2020-05-28 15:27 | PN ---
Progress Note, Physician Chief Complaint: SEATED OOB IN CHAIR LETHARGIC NO FEVER/ CHILLS WOUND C/S MIXED ORGANISMS PSEUDOMONAS/ VANCOMYCIN VANCO TROUGH 13.5 - Current Medication List Current Medications: Active Medications Acetaminophen (Tylenol -) 650 mg PO Q6H PRN PRN Reason: PAIN LEVEL 4 - 6 Last Admin: 05/24/20 19:53 Dose: 650 mg Documented by: Albuterol Sulfate (Ventolin Hfa Inhaler -) 2 puff IH Q4H PRN PRN Reason: SHORT OF BREATH/WHEEZING Ascorbic Acid (Vitamin C -) 500 mg PO DAILY [facility] Last Admin: 05/28/20 09:41 Dose: 500 mg Documented by: Aspirin (Asa -) 81 mg PO DAILY [facility] Last Admin: 05/28/20 09:41 Dose: 81 mg Documented by: Atorvastatin Calcium (Lipitor -) 40 mg PO HS [facility] Last Admin: 05/27/20 21:54 Dose: 40 mg Documented by: Bacitracin (Bacitracin -) 1 applic TP BID [facility] Last Admin: 05/28/20 09:40 Dose: 1 applic Documented by: Bisacodyl (Dulcolax Suppository -) 10 mg CO DAILY PRN PRN Reason: CONSTIPATION Last Admin: 05/26/20 10:13 Dose: 10 mg Documented by: Brimonidine Tartrate (Alphagan 0.2% -) 1 drop OS BID [facility] Last Admin: 05/28/20 09:41 Dose: 1 drop Documented by: Docusate Sodium (Colace -) 100 mg PO BID [facility] Last Admin: 05/28/20 09:41 Dose: 100 mg Documented by: Dorzolamide HCl (Trusopt 2%) 1 drop OS BID [facility] Last Admin: 05/28/20 09:43 Dose: 1 drop Documented by: Furosemide (Lasix -) 40 mg PO DAILY [facility] Last Admin: 05/28/20 09:41 Dose: 40 mg Documented by: Furosemide (Lasix Injection -) 40 mg IVPUSH ONCE ONE Stop: 05/29/20 10:01 Gabapentin (Neurontin -) 400 mg PO BID [facility] Last Admin: 05/28/20 09:43 Dose: 400 mg Documented by: Piperacillin Sod/Tazobactam (Sod 2.25 gm/ Dextrose) 50 mls @ 100 mls/hr IVPB Q 8H-IV JOSE ELIAS; Protocol Last Admin: 05/28/20 09:41 Dose: 100 mls/hr Documented by: Vancomycin HCl 500 mg/ (Dextrose) 100 mls @ 100 mls/hr IVPB Q24H [facility]; Protocol Last Admin: 05/27/20 22:29 Dose: 100 mls/hr Documented by: Insulin Aspart (Novolog Vial Sliding Scale -) 1 vial SQ ACHS [facility]; Protocol Last Admin: 05/28/20 12:06 Dose: 2 units Documented by: Isosorbide Mononitrate (Imdur -) 30 mg PO DAILY [facility] Last Admin: 05/28/20 09:41 Dose: 30 mg Documented by: Loratadine (Claritin -) 10 mg PO DAILY [facility] Last Admin: 05/28/20 09:42 Dose: 10 mg Documented by: Metolazone (Zaroxolyn -) 2.5 mg PO DAILY [facility] Last Admin: 05/28/20 09:42 Dose: 2.5 mg Documented by: Multivitamins/Minerals/Vitamin C (Tab-A-Vit -) 1 tab PO DAILY [facility] Last Admin: 05/28/20 09:41 Dose: 1 tab Documented by: Pantoprazole Sodium (Protonix -) 40 mg PO BID [facility] Last Admin: 05/28/20 09:41 Dose: 40 mg Documented by: Polyethylene Glycol (Miralax (For Daily Use) -) 17 gm PO DAILY [facility] Last Admin: 05/28/20 09:42 Dose: Not Given Documented by: Senna (Senna Oral Solution -) 8.8 mg PO HS [facility] Last Admin: 05/27/20 21:54 Dose: 8.8 mg Documented by: Tizanidine HCl (Tizanidine Hcl) 2 mg PO BID [facility] Last Admin: 05/28/20 09:43 Dose: 2 mg Documented by: - Objective Vital Signs: Vital Signs Temperature 97.7 F 05/28/20 10:00 Pulse Rate 64 05/28/20 10:00 Respiratory Rate 18 05/28/20 10:00 Blood Pressure 124/59 L 05/28/20 10:00 O2 Sat by Pulse Oximetry (%) 99 05/28/20 10:00 Constitutional: Yes: No Distress Eyes: Yes: Conjunctiva Clear Cardiovascular: Yes: Regular Rate and Rhythm, S1, S2 Respiratory: Yes: CTA Bilaterally Gastrointestinal: Yes: Normal Bowel Sounds, Soft. No: Tenderness Extremities: Yes: Other (+ B/L LE ERYTHEMA /WARMTH) Edema: Yes Labs: CBC, BMP 05/28/20 07:40 05/28/20 07:40 Assessment/Plan BILATERAL LE CELLULITIS CHRONIC STASIS DERMATITIS AZOTEMIA CONTINUE VANCO/ZOSYN ELEVATION
--- NOTE | 2020-05-28 17:28 | PN ---
Physical Exam: SUBJECTIVE: Patient seen and examined at bedside. No acute events overnight. OBJECTIVE: Vital Signs Period Temp Pulse Resp BP Sys/Emerson Pulse Ox Last 24 Hr 97.5 F-98.5 F 53-68 16-24 92-124/42-59 93-100 GENERAL: No acute distress HEAD: AT/NC EYES: Left eye corneal clouding ENT: MMM LUNGS: Clear to auscultation bilaterally HEART: +KERWIN S1S2 ABDOMEN: Soft, NDNT EXTREMITIES: bilateral venous stasis changes. Left lower extremity calf is slightly larger compared to right, skin is taut. No open/oozing wounds seen. Laboratory Results - last 24 hr 05/27/20 05/27/20 05/28/20 17:30 22:36 06:38 WBC RBC Hgb Hct MCV MCH MCHC RDW Plt Count MPV Sodium Potassium Chloride Carbon Dioxide Anion Gap BUN Creatinine Est GFR (CKD-EPI)AfAm Est GFR (CKD-EPI)NonAf POC Glucometer 187 196 Random Glucose Calcium Phosphorus Magnesium Vancomycin Pre-Dose COVID-19 (CHRISTIE) Not detected 05/28/20 05/28/20 05/28/20 07:40 07:40 10:35 WBC 6.3 RBC 3.75 Hgb 12.1 Hct 36.3 MCV 96.7 H MCH 32.2 MCHC 33.3 RDW 16.4 H Plt Count 246 MPV 9.3 Sodium 135 L Potassium 3.6 Chloride 97 L Carbon Dioxide 30 Anion Gap 8 BUN 47.9 H Creatinine 1.5 H Est GFR (CKD-EPI)AfAm 35.93 Est GFR (CKD-EPI)NonAf 31.00 POC Glucometer Random Glucose 177 H Calcium 8.7 Phosphorus 4.2 Magnesium 2.6 H Vancomycin Pre-Dose 13.5 H COVID-19 (CHRISTIE) 05/28/20 16:47 WBC RBC Hgb Hct MCV MCH MCHC RDW Plt Count MPV Sodium Potassium Chloride Carbon Dioxide Anion Gap BUN Creatinine Est GFR (CKD-EPI)AfAm Est GFR (CKD-EPI)NonAf POC Glucometer 248 Random Glucose Calcium Phosphorus Magnesium Vancomycin Pre-Dose COVID-19 (CHRISTIE) Active Medications Generic Name Dose Route Start Last Admin Trade Name Freq PRN Reason Stop Dose Admin Acetaminophen 650 mg 05/24/20 19:34 05/24/20 19:53 Tylenol - PO 650 mg Q6H PRN Administration PAIN LEVEL 4 - 6 Albuterol Sulfate 2 puff 05/18/20 04:04 Ventolin Hfa Inhaler - IH Q4H PRN SHORT OF BREATH/WHEEZING Ascorbic Acid 500 mg 05/19/20 10:00 05/28/20 09:41 Vitamin C - PO 500 mg DAILY JOSE ELIAS Administration Aspirin 81 mg 05/19/20 10:00 05/28/20 09:41 Asa - PO 81 mg DAILY JOSE ELIAS Administration Atorvastatin Calcium 40 mg 05/18/20 22:00 05/27/20 21:54 Lipitor - PO 40 mg HS JOSE ELIAS Administration Bacitracin 1 applic 05/21/20 13:45 05/28/20 09:40 Bacitracin - TP 1 applic BID JOSE ELIAS Administration Bisacodyl 10 mg 05/25/20 10:14 05/26/20 10:13 Dulcolax Suppository - [place] 10 mg DAILY PRN Administration CONSTIPATION Brimonidine Tartrate 1 drop 05/19/20 22:00 05/28/20 09:41 Alphagan 0.2% - OS 1 drop BID JOSE ELIAS Administration Docusate Sodium 100 mg 05/18/20 22:00 05/28/20 09:41 Colace - PO 100 mg BID JOSE ELIAS Administration Dorzolamide HCl 1 drop 05/19/20 22:00 05/28/20 09:43 Trusopt 2% OS 1 drop BID JOSE ELIAS Administration Furosemide 40 mg 05/25/20 10:00 05/28/20 09:41 Lasix - PO 40 mg DAILY JOSE ELIAS Administration Furosemide 40 mg 05/29/20 10:00 Lasix Injection - IVPUSH 05/29/20 10:01 ONCE ONE Gabapentin 400 mg 05/22/20 22:00 05/28/20 09:43 Neurontin - PO 400 mg BID JOSE ELIAS Administration Piperacillin Sod/Tazobactam 50 mls @ 100 mls/hr 05/24/20 22:45 05/28/20 09:41 Sod 2.25 gm/ Dextrose IVPB 100 mls/hr Q8H-IV JOSE ELIAS Administration Protocol Vancomycin HCl 500 mg/ 100 mls @ 100 mls/hr 05/24/20 23:00 05/27/20 22:29 Dextrose IVPB 100 mls/hr Q24H JOSE ELIAS Administration Protocol Insulin Aspart 1 vial 05/18/20 07:00 05/28/20 16:49 Novolog Vial Sliding Scale - SQ 4 units ACHS JOSE ELIAS Administration Protocol Isosorbide Mononitrate 30 mg 05/19/20 10:00 05/28/20 09:41 Imdur - PO 30 mg DAILY JOSE ELIAS Administration Loratadine 10 mg 05/19/20 10:00 05/28/20 09:42 Claritin - PO 10 mg DAILY JOSE ELIAS Administration Metolazone 2.5 mg 05/24/20 13:30 05/28/20 09:42 Zaroxolyn - PO 2.5 mg DAILY JOSE ELIAS Administration Multivitamins/Minerals/Vitamin C 1 tab 05/19/20 10:00 05/28/20 09:41 Tab-A-Vit - PO 1 tab DAILY JOSE ELIAS Administration Pantoprazole Sodium 40 mg 05/18/20 22:00 05/28/20 09:41 Protonix - PO 40 mg BID JOSE ELIAS Administration Polyethylene Glycol 17 gm 05/18/20 10:00 05/28/20 09:42 Miralax (For Daily Use) - PO Not Given DAILY JOSE ELIAS Senna 8.8 mg 05/21/20 13:37 05/27/20 21:54 Senna Oral Solution - PO 8.8 mg HS JOSE ELIAS Administration Tizanidine HCl 2 mg 05/18/20 15:46 05/28/20 09:43 Tizanidine Hcl PO 2 mg BID JOSE ELIAS Administration ASSESSMENT/PLAN: Patient is an 85 year old female with history of COPD (on home oxygen 2L), coronary artery disease (s/p stents), hyperlipidemia, diabetes mellitus (insulin dependnet), gastro-esophageal reflux, left eye blindness presents with complaint of left lower extremity pain. Left lower extremity pain -CT pelvis, left lower extremity does nor reveal acute fracture, or pathology to explain patient's symptoms -Duplex bilateral lower extremities negative for DVT -Tizanidine, Acetaminophen -Physical therapy evaluation -Ortho on board----> Patient's symptoms, PE and imaging are most consistent with DJD -Fall precautions Bilateral lower extremity Cellulitis -Wound Culture MRSA and Pseudomonas. Vanc and Zosyn. Contacted [facility], states that they do not accept patient's with PICC lines. Patient declining SNF. Will finish course of ABx treatment here. Currently on 5th day of vanc/Zosyn. -ID on board. Recs appreciated. Monitor for fever, trend CBC Acute kidney injury Cr 1.5 today. Trend BMP. Coronary artery disease -Continue home Aspirin, Atorvastatin, Isosorbide mononitrate HEFpEF Lasix 40 PO Daily Diabetes mellitus -Insulin sliding scale ACHS -Fingerstick blood glucose ACHS FEN -No Fluids -Follow BMP -Diabetic diet, sodium modification Prophylaxis -Heparin 5000units subq TID Disposition -Med-Surg Visit type - Emergency Visit Emergency Visit: Yes ED Registration Date: 05/17/20 Care time: The patient presented to the Emergency Department on the above date and was hospitalized for further evaluation of their emergent condition. - New Patient This patient is new to me today: No - Critical Care Critical Care patient: No - Discharge Referral Referred to [facility] No - Medication Review Med list reviewed for High Risk Meds patients 65 and older: Yes ATTENDING PHYSICIAN STATEMENT I saw and evaluated the patient. I reviewed the resident's note and discussed the case with the resident. I agree with the resident's findings and plan as documented. SUBJECTIVE: OBJECTIVE: ASSESSMENT AND PLAN:
[2020-05-28] MEDS: ATORVASTATIN CA 40 MG TABLET (FP) PO SCH (21:03)
[2020-05-28] MEDS: SENNOSIDES 8.8 MG/5 ML BULK BOTTLE PO SCH (21:03)
[2020-05-28] MEDS: HEPARIN NA (PORCINE) 5,000 UNITS/ML 1ML VIAL SQ SCH (21:04)
[2020-05-28] MEDS ORDERED: INSULIN (NOVOLOG) ASPART 100 UNITS/ML 10ML VIAL ONE (21:14)
[2020-05-28] MEDS: VANCOMYCIN 500 MG in DEXTROSE 5%-WATER 100 ML IVPB SCH (22:08)
[2020-05-29] MEDS ORDERED: PIPERACILLIN/TAZOBACTAM 2.25 GM VIAL IVPB ONE ×3 (00:57→17:27)
[2020-05-29] MEDS ORDERED: DEXTROSE 5%-WATER - 50 ML IVPB ONE ×2 (00:57→09:18)
[2020-05-29] MEDS: PIPERACILLIN/TAZOB 2.25 GM 2.25 GM in DEXTROSE 5%-WATER - 50 ML IVPB SCH ×3 (01:09→17:45)
[2020-05-29] MEDS: HEPARIN NA (PORCINE) 5,000 UNITS/ML 1ML VIAL SQ SCH ×4 (05:31→22:49)
[2020-05-29] MEDS: INSULIN SLIDING SCALE (NOVOLOG) 1 VIAL SQ SCH ×5 (06:12→23:04)
[2020-05-29 08:23] LABS: HEMATOCRIT 37.1 % (32.4-45.2); HEMOGLOBIN 12.2 GM/dL (10.7-15.3); MCH 32.1 pg (25.7-33.7); MEAN CELL VOLUME 97.3 fl (80-96); MEAN PLT VOLUME 9.3 fl (7.5-11.1); PLATELET COUNT 238 K/MM3 (134-434); RBC 3.81 M/mm3 (3.60-5.2); RDW 16.9 % (11.6-15.6); WHITE BLOOD COUNT 7.4 K/mm3 (4.0-10.0)
[2020-05-29 08:40] LABS: BLOOD UREA NITROGEN 43.4 mg/dL (7-18); CALCIUM 8.9 mg/dL (8.5-10.1); CREATININE 1.3 mg/dL (0.55-1.3); MAGNESIUM 2.5 mg/dL (1.8-2.4); PHOSPHOROUS 3.6 mg/dL (2.5-4.9); POTASSIUM 3.9 mmol/L (3.5-5.1)
[2020-05-29] MEDS ORDERED: PT OWN MED DRAWER 7, Y5N ONE ×4 (09:18→23:16)
[2020-05-29] MEDS: BRIMONIDINE TARTRATE 0.2% OPHTHALMIC 5 ML BOTTLE OS SCH ×3 (09:56→23:04)
[2020-05-29] MEDS: ISOSORBIDE MONONITRATE 30 MG TAB.SR.24H (FP) PO SCH (09:58)
[2020-05-29] MEDS: ASPIRIN 81 MG CHEWABLE TABLETS PO SCH (09:58)
[2020-05-29] MEDS: BACITRACIN 15 GM TUBE TOPICAL OINTMENT TP SCH ×2 (09:58→22:21)
[2020-05-29] MEDS: DOCUSATE SODIUM 100 MG CAPSULE (FP) PO SCH ×3 (09:58→23:04)
[2020-05-29] MEDS: LORATADINE 10 MG TABLET PO SCH (09:58)
[2020-05-29] MEDS: POLYETHYLENE GLYCOL 3350 119 GM BTL PO SCH (09:59)
[2020-05-29] MEDS: MULTIVITAMINS (DAILY MVI) TABLET (FP) PO SCH (09:59)
[2020-05-29] MEDS ORDERED: FUROSEMIDE 40 MG/4 ML INJECTABLE VIAL IVPUSH ONE (10:00)
[2020-05-29] MEDS: GABAPENTIN 400 MG CAPSULE PO SCH ×3 (10:00→23:04)
[2020-05-29] MEDS: PANTOPRAZOLE 40 MG TABLET PO SCH ×3 (10:03→23:05)
[2020-05-29] MEDS: TIZANIDINE HCL 2 MG TABLET PO SCH ×3 (10:04→23:05)
[2020-05-29] MEDS: ASCORBIC ACID 500 MG TABLET (FP) PO SCH (10:05)
[2020-05-29] MEDS: DORZOLAMIDE 2% HCL OPHTHALMIC SOLUTION 10 ML BOTTLE OS SCH ×3 (10:05→23:05)
[2020-05-29] MEDS ORDERED: INSULIN (NOVOLOG) ASPART 100 UNITS/ML 10ML VIAL ONE (11:40)
[2020-05-29] MEDS: SENNOSIDES 8.8 MG/5 ML BULK BOTTLE PO SCH ×2 (22:22→23:05)
[2020-05-29] MEDS: ATORVASTATIN CA 40 MG TABLET (FP) PO SCH ×2 (22:23→23:04)
[2020-05-29] MEDS: VANCOMYCIN 500 MG in DEXTROSE 5%-WATER 100 ML IVPB SCH ×2 (23:41→23:54)
[2020-05-30] MEDS ORDERED: PIPERACILLIN/TAZOBACTAM 2.25 GM VIAL IVPB ONE ×3 (00:58→16:49)
[2020-05-30] MEDS ORDERED: DEXTROSE 5%-WATER - 50 ML IVPB ONE ×3 (00:59→16:49)
[2020-05-30] MEDS: PIPERACILLIN/TAZOB 2.25 GM 2.25 GM in DEXTROSE 5%-WATER - 50 ML IVPB SCH ×3 (02:05→17:15)
[2020-05-30] MEDS: HEPARIN NA (PORCINE) 5,000 UNITS/ML 1ML VIAL SQ SCH ×3 (06:35→21:58)
[2020-05-30] MEDS: INSULIN SLIDING SCALE (NOVOLOG) 1 VIAL SQ SCH ×3 (06:38→16:35)
[2020-05-30 08:44] LABS: BASO % 0.4 % (0-2.0); EOS % 6.4 % (0-4.5); HEMATOCRIT 40.1 % (32.4-45.2); HEMOGLOBIN 13.3 GM/dL (10.7-15.3); LYMPH % 9.3 % (8-40); MCH 32.9 pg (25.7-33.7); MCHC 33.2 g/dl (32.0-36.0); MEAN CELL VOLUME 99.2 fl (80-96); MEAN PLT VOLUME 9.4 fl (7.5-11.1); MONO % 13.8 % (3.8-10.2); NEUT % 70.1 % (42.8-82.8); PLATELET COUNT 207 K/MM3 (134-434); RBC 4.04 M/mm3 (3.60-5.2); RDW 16.8 % (11.6-15.6); WHITE BLOOD COUNT 6.6 K/mm3 (4.0-10.0)
[2020-05-30 09:05] LABS: ALBUMIN 3.6 g/dl (3.4-5.0); BILIRUBIN,TOTAL 0.5 mg/dL (0.2-1); BLOOD UREA NITROGEN 40.5 mg/dL (7-18); CALCIUM 9.3 mg/dL (8.5-10.1); CREATININE 1.4 mg/dL (0.55-1.3); POTASSIUM 3.8 mmol/L (3.5-5.1); TOT PROT 7.4 g/dl (6.4-8.2)
[2020-05-30] MEDS: BRIMONIDINE TARTRATE 0.2% OPHTHALMIC 5 ML BOTTLE OS SCH ×2 (09:34→21:57)
[2020-05-30] MEDS: ASPIRIN 81 MG CHEWABLE TABLETS PO SCH (09:34)
[2020-05-30] MEDS: BACITRACIN 15 GM TUBE TOPICAL OINTMENT TP SCH ×2 (09:35→21:57)
[2020-05-30] MEDS: LORATADINE 10 MG TABLET PO SCH (09:35)
[2020-05-30] MEDS: ISOSORBIDE MONONITRATE 30 MG TAB.SR.24H (FP) PO SCH (09:36)
[2020-05-30] MEDS: MULTIVITAMINS (DAILY MVI) TABLET (FP) PO SCH (09:36)
[2020-05-30] MEDS: PANTOPRAZOLE 40 MG TABLET PO SCH ×2 (09:36→21:58)
[2020-05-30] MEDS: DOCUSATE SODIUM 100 MG CAPSULE (FP) PO SCH ×2 (09:36→21:58)
[2020-05-30] MEDS: ASCORBIC ACID 500 MG TABLET (FP) PO SCH (09:37)
[2020-05-30] MEDS: DORZOLAMIDE 2% HCL OPHTHALMIC SOLUTION 10 ML BOTTLE OS SCH ×2 (09:38→22:04)
[2020-05-30] MEDS ORDERED: PT OWN MED DRAWER 7, Y5N ONE ×2 (09:41→21:36)
[2020-05-30] MEDS: POLYETHYLENE GLYCOL 3350 119 GM BTL PO SCH ×2 (09:42→10:09)
[2020-05-30] MEDS: FUROSEMIDE 40 MG TABLET (FP) PO SCH (09:42)
[2020-05-30] MEDS: GABAPENTIN 400 MG CAPSULE PO SCH ×2 (09:43→21:59)
[2020-05-30] MEDS: TIZANIDINE HCL 2 MG TABLET PO SCH ×2 (09:44→22:00)
[2020-05-30] MEDS: METOLAZONE 2.5 MG TABLET (FP) PO SCH (09:45)
--- NOTE | 2020-05-30 14:20 | PN ---
Progress Note (short form) - Note Progress Note: SUBJECTIVE: Seen and examined at bedside. Legs slowly improving. Pt's assisted living facility will not administer IV abx and pt does not want to go to SNF so pt will need to complete remainder of abx regimen inpt. OBJECTIVE Last Vital Signs Temp Pulse Resp BP Pulse Ox 98.7 F 72 17 119/58 L 98 05/30/20 09:00 05/30/20 09:00 05/30/20 09:00 05/30/20 09:00 05/30/20 09:00 PE: GEN: NAD HEENT: NC/AT PEARLL RESP: CTAB CARDS: RRR, -MRG ABD: soft, nt/nd +BS EXT: No swelling/Edema Neuro: Non-focal, A&OX3 Labs/Imaging: reviewed ASSESSMENT/PLAN 85-year-old female with a history of NSTEMI status post stent, chronic diastolic CHF, COPD on 2 L nasal cannula, HLD, IDDM, venous insufficiency, chronic bilateral lower extremity wounds presents with severe hip and knee pain, CAROLYN, and cellulitis #bilateral Lower extremity cellulitis -wound culture polymicrobial positive for MRSA, pseudomonas: switched to vanco/zosyn -ID on board: appreciate recs -will clarify expected length of tx with ID: likely 7 days #Left hip pain Still in pain but improved mobility today. No longer with impaired proprioception No known trauma per ortho symptoms most consistent with DJD. Recommend pain control and outpt management -pain control #CAROLYN: improving 2/2 diuresis -restart lasix today, metolazone tomorrow Hold nephrotoxic medications #Diastolic CHF -holding diuresis today 2/2 CAROLYN #HTN -cont imdur #CAD -cont asa/statin Visit type - Emergency Visit Emergency Visit: Yes ED Registration Date: 05/17/20 Care time: The patient presented to the Emergency Department on the above date and was hospitalized for further evaluation of their emergent condition. - New Patient This patient is new to me today: No - Critical Care Critical Care patient: No - Medication Review Med list reviewed for High Risk Meds patients 65 and older: Yes
[2020-05-30] MEDS ORDERED: FUROSEMIDE 40 MG TABLET (FP) PO ONE (14:30)
[2020-05-30] MEDS: ATORVASTATIN CA 40 MG TABLET (FP) PO SCH (21:58)
[2020-05-30] MEDS: SENNOSIDES 8.8 MG/5 ML BULK BOTTLE PO SCH (22:00)
[2020-05-31] MEDS: INSULIN SLIDING SCALE (NOVOLOG) 1 VIAL SQ SCH ×5 (00:25→21:27)
[2020-05-31] MEDS: VANCOMYCIN 500 MG in DEXTROSE 5%-WATER 100 ML IVPB SCH (00:27)
[2020-05-31] MEDS ORDERED: DEXTROSE 5%-WATER - 50 ML IVPB ONE ×2 (01:19→10:44)
[2020-05-31] MEDS ORDERED: PIPERACILLIN/TAZOBACTAM 2.25 GM VIAL IVPB ONE ×2 (01:19→10:44)
[2020-05-31] MEDS: PIPERACILLIN/TAZOB 2.25 GM 2.25 GM in DEXTROSE 5%-WATER - 50 ML IVPB SCH ×2 (01:20→11:37)
[2020-05-31] MEDS: HEPARIN NA (PORCINE) 5,000 UNITS/ML 1ML VIAL SQ SCH ×3 (06:29→21:26)
[2020-05-31] MEDS ORDERED: PT OWN MED DRAWER 7, Y5N ONE ×3 (10:44→21:51)
[2020-05-31 11:15] LABS: BASO % 0.3 % (0-2.0); EOS % 10.4 % (0-4.5); HEMATOCRIT 34.6 % (32.4-45.2); HEMOGLOBIN 11.7 GM/dL (10.7-15.3); LYMPH % 10.9 % (8-40); MCH 32.4 pg (25.7-33.7); MCHC 33.8 g/dl (32.0-36.0); MEAN CELL VOLUME 95.9 fl (80-96); MEAN PLT VOLUME 9.5 fl (7.5-11.1); MONO % 11.6 % (3.8-10.2); NEUT % 66.8 % (42.8-82.8); PLATELET COUNT 197 K/MM3 (134-434); RBC 3.61 M/mm3 (3.60-5.2); RDW 16.8 % (11.6-15.6); WHITE BLOOD COUNT 4.8 K/mm3 (4.0-10.0)
[2020-05-31] MEDS: BRIMONIDINE TARTRATE 0.2% OPHTHALMIC 5 ML BOTTLE OS SCH ×2 (11:39→21:25)
[2020-05-31] MEDS: ASPIRIN 81 MG CHEWABLE TABLETS PO SCH (11:39)
[2020-05-31] MEDS: LORATADINE 10 MG TABLET PO SCH (11:39)
[2020-05-31] MEDS: BACITRACIN 15 GM TUBE TOPICAL OINTMENT TP SCH ×2 (11:39→21:25)
[2020-05-31] MEDS: DOCUSATE SODIUM 100 MG CAPSULE (FP) PO SCH ×2 (11:40→21:26)
[2020-05-31] MEDS: FUROSEMIDE 40 MG TABLET (FP) PO SCH (11:41)
[2020-05-31] MEDS: ISOSORBIDE MONONITRATE 30 MG TAB.SR.24H (FP) PO SCH (11:41)
[2020-05-31] MEDS: POLYETHYLENE GLYCOL 3350 119 GM BTL PO SCH (11:42)
[2020-05-31] MEDS: GABAPENTIN 400 MG CAPSULE PO SCH ×2 (11:42→21:27)
[2020-05-31 11:43] LABS: BLOOD UREA NITROGEN 43.1 mg/dL (7-18); CALCIUM 8.7 mg/dL (8.5-10.1); CREATININE 1.5 mg/dL (0.55-1.3); POTASSIUM 3.9 mmol/L (3.5-5.1)
[2020-05-31] MEDS: ASCORBIC ACID 500 MG TABLET (FP) PO SCH (11:43)
[2020-05-31] MEDS: DORZOLAMIDE 2% HCL OPHTHALMIC SOLUTION 10 ML BOTTLE OS SCH ×2 (11:43→21:29)
[2020-05-31] MEDS: PANTOPRAZOLE 40 MG TABLET PO SCH ×2 (11:43→21:26)
[2020-05-31] MEDS: MULTIVITAMINS (DAILY MVI) TABLET (FP) PO SCH (11:43)
[2020-05-31] MEDS: TIZANIDINE HCL 2 MG TABLET PO SCH ×2 (11:44→21:28)
[2020-05-31] MEDS: METOLAZONE 2.5 MG TABLET (FP) PO SCH (11:44)
--- NOTE | 2020-05-31 11:53 | PN ---
Teaching Attending Note Name of Resident: Shayla Whipple ATTENDING PHYSICIAN STATEMENT I saw and evaluated the patient. I reviewed the resident's note and discussed the case with the resident. I agree with the resident's findings and plan as documented. SUBJECTIVE: Seen and examined at bedside. Patient completed her seven-day course of antibi otics. Patient's creatinine has been borderline. She will be discharged on a fluid restriction and all of her home medications with the exception of metolazone. She is to follow-up with her real estate legal secretary within 1 to 2 weeks to recheck her fluid status and creatinine and decide whether or not to restart metolazone OBJECTIVE Last Vital Signs Temp Pulse Resp BP Pulse Ox 97.9 F 67 18 132/68 99 05/31/20 06:00 05/31/20 06:00 05/31/20 06:00 05/31/20 06:00 05/31/20 06:00 PE: GEN: NAD HEENT: NC/AT PEARLL RESP: CTAB CARDS: RRR, -MRG ABD: soft, nt/nd +BS EXT: swollen but with interval improvement Neuro: Non-focal, A&OX3 Labs/Imaging: reviewed ASSESSMENT/PLAN 85-year-old female with a history of NSTEMI status post stent, chronic diastolic CHF, COPD on 2 L nasal cannula, HLD, IDDM, venous insufficiency, chronic bilateral lower extremity wounds presents with severe hip and knee pain, CAROLYN, and cellulitis. . Wound culture was polymicrobial positive for MRSA and Pseudomonas. Patient was treated with 7-day course of vancomycin and Zosyn with improvement. Patient continues to have chronic lower extremity edema and is at risk for future episodes of cellulitis. Patient will be sent home on a fluid restriction and should follow-up with her real estate legal secretary and PCP in 1 to 2 weeks
--- NOTE | 2020-05-31 11:59 | DS ---
Physical Exam: SUBJECTIVE: Patient seen and examined OBJECTIVE: Vital Signs Period Temp Pulse Resp BP Sys/Emerson Pulse Ox Last 24 Hr 97.9 F-99.1 F 56-75 17-18 97-132/36-68 93-99 PHYSICAL EXAM GENERAL: The patient is awake, alert, and fully oriented, in no acute distress. HEAD: Normal with no signs of trauma. EYES: PERRL, extraocular movements intact, sclera anicteric, conjunctiva clear. ENT: Ears normal, nares patent, oropharynx clear without exudates, moist mucous membranes. NECK: Trachea midline, full range of motion, supple. LUNGS: Breath sounds equal, clear to auscultation bilaterally, no wheezes, no crackles, no accessory muscle use. HEART: Regular rate and rhythm, S1, S2 without murmur, rub or gallop. ABDOMEN: Soft, nontender, nondistended, normoactive bowel sounds, no guarding, no rebound, no hepatosplenomegaly, no masses. EXTREMITIES: 2+ pulses, warm, well-perfused, no edema. NEUROLOGICAL: Cranial nerves II through XII grossly intact. Normal speech, gait not observed. PSYCH: Normal mood, normal affect. SKIN: Warm, dry, normal turgor, no rashes or lesions noted. LABS Laboratory Results - last 24 hr 05/30/20 05/31/20 05/31/20 16:34 00:12 06:31 WBC RBC Hgb Hct MCV MCH MCHC RDW Plt Count MPV Absolute Neuts (auto) Neutrophils % Lymphocytes % Monocytes % Eosinophils % Basophils % Nucleated RBC % Sodium Potassium Chloride Carbon Dioxide Anion Gap BUN Creatinine Est GFR (CKD-EPI)AfAm Est GFR (CKD-EPI)NonAf POC Glucometer 236 217 233 Random Glucose Calcium 05/31/20 05/31/20 10:12 10:12 WBC 4.8 RBC 3.61 Hgb 11.7 Hct 34.6 MCV 95.9 MCH 32.4 MCHC 33.8 RDW 16.8 H Plt Count 197 MPV 9.5 Absolute Neuts (auto) 3.2 Neutrophils % 66.8 Lymphocytes % 10.9 Monocytes % 11.6 H Eosinophils % 10.4 H Basophils % 0.3 Nucleated RBC % 0 Sodium 137 Potassium 3.9 Chloride 98 Carbon Dioxide 27 Anion Gap 12 BUN 43.1 H Creatinine 1.5 H Est GFR (CKD-EPI)AfAm 35.93 Est GFR (CKD-EPI)NonAf 31.00 POC Glucometer Random Glucose 194 H Calcium 8.7 HOSPITAL COURSE: Date of Admission:05/17/20 Date of Discharge: 05/31/20 Discharge Summary Problems reviewed: Yes Reason For Visit: INTRACTABLE PAIN, CELLULITIS Current Active Problems Cellulitis (Acute) Intractable pain (Acute) Condition: Stable - Instructions Diet, Activity, Other Instructions: You were admitted to the hospital for infection of your lower legs. We treated you with antibiotics and the infection is much better. Because you have chronic vascular changed in your legs it puts you at a higher risk of getting repeat infections. It is VERY important that you take care of your skin and that you restrict your fluids intake. Please do not drink more then 1.5 L of fluid a day. While you were here we did imaging of your knee and pelvis and did not find any fractures. Please follow up with Physical Therapy as an outpatient to help with your walking. While you were here your kidney function worsened a little. You are on a couple medications that can hurt your kidney function. Please STOP taking Metolazone. You should follow up with Dr. Murguia in ONE WEEK, o discuss when to restart this medication. Please continue all other home medications. Make a follow up appointment with your Primary Care Physician within one week . Return to the Emergency Department if you have any chest pain, shortness of breath, nausea, vomiting, or worsening of symptoms. Referrals: Carlo Murguia MD [Staff Physician] - 1 Week Elijah Sanders MD [Primary Care Provider] - 1 Week Disposition: VNS/HOME HEALTH CARE - Home Medications Comprehensive Discharge Medication List: Ambulatory Orders Acetaminophen [Tylenol] 650 mg PO BID PRN 08/07/17 Ascorbic Acid [Vitamin C -] 500 mg PO DAILY 08/07/17 Atorvastatin Ca [Lipitor] 40 mg PO HS 08/07/17 Bacitracin - [Bacitracin Topical Ointment -] 1 applic TP PRN PRN 08/07/17 Gabapentin 300 mg PO BID 08/07/17 Loratadine [Claritin] 10 mg PO DAILY 08/07/17 Multivitamin [One Daily] 1 each PO DAILY 08/07/17 Furosemide [Lasix -] 40 mg PO BID #14 tablet MDD 2 08/14/17 Tamsulosin HCl [Flomax -] 0.4 mg PO DAILY@0830 #30 cap.er.24h MDD 1 08/14/17 Docusate Sodium [Colace -] 100 mg PO BID capsule 12/13/18 Alendronate Sodium [Binosto] 70 mg PO WEEKLY 05/17/20 Aspirin [ASA -] 1 tab PO DAILY 05/17/20 Brinzolamide/Brimonidine Tart [Simbrinza 1%-0.2% Eye Drops] 1 drop OS DAILY 05/17/20 Erythromycin 0.5% Eye Ointment [Erythromycin 0.5% Eye Ointment -] 1 applic OS DAILY 05/17/20 Isosorbide Mononitrate [Imdur -] 30 mg PO DAILY 05/17/20 Metformin HCl [Glucophage] 500 mg PO BID 05/17/20 Tizanidine HCl 2 mg PO BID 05/17/20 Valacyclovir HCl [Valacyclovir] 1,000 mg PO BID 05/17/20 Allopurinol [Zyloprim -] 1 tablet PO DAILY 05/28/20 Ammonium Lactate Lotion [Lac-Hydrin 12] 1 applic TP DAILY 05/28/20 Calcium Citrate/Vitamin D3 [Calcium Citrate - Vit D Tablet] 1 tab PO DAILY 05/28/20 Insulin Glargine,Hum.rec.anlog [Lantus (10mL VIAL) -] 30 units SQ DAILY 05/28/20 Insulin NPH Hum/Reg Insulin Hm [Novolin 70-30 Flexpen] See Protocol SQ DAILY 05/28/20 Mag Hydrox/Aluminum Hyd/Simeth [Karen-Lanta Liquid] 10 ml PO BID 05/28/20 Mupirocin Ointment [Bactroban 2% Ointment -] 1 applic TP DAILY 05/28/20 Pantoprazole Sodium 40 mg PO DAILY 05/28/20 Polyethylene Glycol 3350 [Purelax] 17 gm PO PRN 05/28/20 Polymyxin B Sulf/Trimethoprim [Polymyxin B-Tmp Eye Drops] 1 drop OU QID 05/28/20 Sitagliptin Phosphate [Januvia] 1 tab PO DAILY 05/28/20 Sodium Hypochlorite [Dakin's Solution 0.25% (Half-Strength) -] 1 applic TP DAILY 05/28/20 - Discharge Referral Referred to [facility] No ATTENDING PHYSICIAN STATEMENT I saw and evaluated the patient. I reviewed the resident's note and discussed the case with the resident. I agree with the resident's findings and plan as documented. SUBJECTIVE: OBJECTIVE: ASSESSMENT AND PLAN:
--- NOTE | 2020-05-31 13:54 | PN ---
Progress Note, Physician Chief Complaint: SEATED IN BED LETHARGIC NO FEVER/ CHILLS WOUND C/S MIXED ORGANISMS PSEUDOMONAS/ VANCOMYCIN - Current Medication List Current Medications: Active Medications Acetaminophen (Tylenol -) 650 mg PO Q6H PRN PRN Reason: PAIN LEVEL 4 - 6 Last Admin: 05/24/20 19:53 Dose: 650 mg Documented by: Albuterol Sulfate (Ventolin Hfa Inhaler -) 2 puff IH Q4H PRN PRN Reason: SHORT OF BREATH/WHEEZING Ascorbic Acid (Vitamin C -) 500 mg PO DAILY [facility] [place] Last Admin: 05/31/20 11:43 Dose: 500 mg Documented by: Aspirin (Asa -) 81 mg PO DAILY [facility] [place] Last Admin: 05/31/20 11:39 Dose: 81 mg Documented by: Atorvastatin Calcium (Lipitor -) 40 mg PO HS [facility] [place] Last Admin: 05/30/20 21:58 Dose: 40 mg Documented by: Bacitracin (Bacitracin -) 1 applic TP BID [facility] [place] Last Admin: 05/31/20 11:39 Dose: 1 applic Documented by: Bisacodyl (Dulcolax Suppository -) 10 mg VT DAILY PRN PRN Reason: CONSTIPATION Last Admin: 05/26/20 10:13 Dose: 10 mg Documented by: Brimonidine Tartrate (Alphagan 0.2% -) 1 drop OS BID [facility] [place] Last Admin: 05/31/20 11:39 Dose: 1 drop Documented by: Docusate Sodium (Colace -) 100 mg PO BID [facility] [place] Last Admin: 05/31/20 11:40 Dose: 100 mg Documented by: Dorzolamide HCl (Trusopt 2%) 1 drop OS BID [facility] [place] Last Admin: 05/31/20 11:43 Dose: 1 drop Documented by: Furosemide (Lasix -) 40 mg PO DAILY [facility] [place] Last Admin: 05/31/20 11:41 Dose: 40 mg Documented by: Gabapentin (Neurontin -) 400 mg PO BID [facility] [place] Last Admin: 05/31/20 11:42 Dose: 400 mg Documented by: Heparin Sodium (Porcine) (Heparin -) 5,000 unit SQ TID [facility] [place] Last Admin: 05/31/20 06:29 Dose: 5,000 unit Documented by: Piperacillin Sod/Tazobactam (Sod 2.25 gm/ Dextrose) 50 mls @ 100 mls/hr IVPB Q8H-IV [facility] [place]; Protocol Last Admin: 05/31/20 11:37 Dose: 100 mls/hr Documented by: Vancomycin HCl 500 mg/ (Dextrose) 100 mls @ 100 mls/hr IVPB Q24H [facility] [place]; Protocol Last Admin: 05/31/20 00:27 Dose: 100 mls/hr Documented by: Insulin Aspart (Novolog Vial Sliding Scale -) 1 vial SQ ACHS [facility] [place]; Protocol Last Admin: 05/31/20 11:56 Dose: 2 units Documented by: Isosorbide Mononitrate (Imdur -) 30 mg PO DAILY [facility] [place] Last Admin: 05/31/20 11:41 Dose: 30 mg Documented by: Loratadine (Claritin -) 10 mg PO DAILY [facility] [place] Last Admin: 05/31/20 11:39 Dose: 10 mg Documented by: Metolazone (Zaroxolyn -) 2.5 mg PO DAILY [facility] [place] Last Admin: 05/31/20 11:44 Dose: 2.5 mg Documented by: Multivitamins/Minerals/Vitamin C (Tab-A-Vit -) 1 tab PO DAILY [facility] [place] Last Admin: 05/31/20 11:43 Dose: 1 tab Documented by: Pantoprazole Sodium (Protonix -) 40 mg PO BID [facility] [place] Last Admin: 05/31/20 11:43 Dose: 40 mg Documented by: Polyethylene Glycol (Miralax (For Daily Use) -) 17 gm PO DAILY [facility] [place] Last Admin: 05/31/20 11:42 Dose: Not Given Documented by: Senna (Senna Oral Solution -) 8.8 mg PO HS [facility] [place] Last Admin: 05/30/20 22:00 Dose: 8.8 mg Documented by: Tizanidine HCl (Tizanidine Hcl) 2 mg PO BID [facility] [place] Last Admin: 05/31/20 11:44 Dose: 2 mg Documented by: - Objective Vital Signs: Vital Signs Temperature 98.2 F 05/31/20 10:00 Pulse Rate 61 05/31/20 10:00 Respiratory Rate 22 H 05/31/20 10:00 Blood Pressure 144/59 L 05/31/20 10:00 O2 Sat by Pulse Oximetry (%) 100 05/31/20 10:00 Constitutional: Yes: No Distress Eyes: Yes: Conjunctiva Clear Cardiovascular: Yes: Regular Rate and Rhythm, S1, S2 Respiratory: Yes: CTA Bilaterally Gastrointestinal: Yes: Normal Bowel Sounds, Soft, Abdomen, Obese. No: Tenderness Edema: Yes Integumentary: Yes: Venous Stasis Changes Labs: CBC, BMP 05/31/20 10:12 05/31/20 10:12 Assessment/Plan BILATERAL LE CELLULITIS RESOLVED CHRONIC STASIS DERMATITIS AZOTEMIA DISCONTINUE VANCO/ZOSYN OBSERVE OFF ELEVATION
[2020-05-31 16:45] VITALS: BMI 35.1
--- NOTE | 2020-05-31 17:47 | PN ---
Physical Exam: SUBJECTIVE: Patient seen and examined, reports her legs feel better, no acute complaints OBJECTIVE: Vital Signs Period Temp Pulse Resp BP Sys/Emerson Pulse Ox Last 24 Hr 97.9 F-99.1 F 56-75 17-22 97-144/36-68 93-100 GENERAL: The patient is awake, alert, and fully oriented, in no acute distress. HEAD: Normal with no signs of trauma. EYES: PERRL, extraocular movements intact, ENT: , moist mucous membranes. LUNGS: Breath sounds equal, clear to auscultation bilaterally, no wheezes, no crackles, no accessory muscle use. HEART: Regular rate and rhythm, S1, S2 without murmur, rub or gallop. ABDOMEN: Soft, nontender, nondistended, normoactive bowel sounds, EXTREMITIES: b/l edema and warmth, erythema PSYCH: Normal mood, normal affect. SKIN: Warm, dry, normal turgor, no rashes or lesions noted CBC, BMP 05/31/20 10:12 05/31/20 10:12 Active Medications Generic Name Dose Route Start Last Admin Trade Name Freq PRN Reason Stop Dose Admin Acetaminophen 650 mg 05/24/20 19:34 05/24/20 19:53 Tylenol - PO 650 mg Q6H PRN Administration PAIN LEVEL 4 - 6 Albuterol Sulfate 2 puff 05/18/20 04:04 Ventolin Hfa Inhaler - IH Q4H PRN SHORT OF BREATH/WHEEZING Ascorbic Acid 500 mg 05/19/20 10:00 05/31/20 11:43 Vitamin C - PO 500 mg DAILY JOSE ELIAS Administration Aspirin 81 mg 05/19/20 10:00 05/31/20 11:39 Asa - PO 81 mg DAILY JOSE ELIAS Administration Atorvastatin Calcium 40 mg 05/18/20 22:00 05/30/20 21:58 Lipitor - PO 40 mg HS JOSE ELIAS Administration Bacitracin 1 applic 05/21/20 13:45 05/31/20 11:39 Bacitracin - TP 1 applic BID JOSE ELIAS Administration Bisacodyl 10 mg 05/25/20 10:14 05/26/20 10:13 Dulcolax Suppository - MS 10 mg DAILY PRN Administration CONSTIPATION Brimonidine Tartrate 1 drop 05/19/20 22:00 05/31/20 11:39 Alphagan 0.2% - OS 1 drop BID JOSE ELIAS Administration Docusate Sodium 100 mg 05/18/20 22:00 05/31/20 11:40 Colace - PO 100 mg BID JOSE ELIAS Administration Dorzolamide HCl 1 drop 05/19/20 22:00 05/31/20 11:43 Trusopt 2% OS 1 drop BID JOSE ELIAS Administration Furosemide 40 mg 05/25/20 10:00 05/31/20 11:41 Lasix - PO 40 mg DAILY JOSE ELIAS Administration Gabapentin 400 mg 05/22/20 22:00 05/31/20 11:42 Neurontin - PO 400 mg BID JOSE ELIAS Administration Heparin Sodium (Porcine) 5,000 unit 05/28/20 22:00 05/31/20 14:53 Heparin - SQ 5,000 unit TID JOSE ELIAS Administration Insulin Aspart 1 vial 05/18/20 07:00 05/31/20 16:57 Novolog Vial Sliding Scale - SQ 2 units ACHS JOSE ELIAS Administration Protocol Isosorbide Mononitrate 30 mg 05/19/20 10:00 05/31/20 11:41 Imdur - PO 30 mg DAILY JOSE ELIAS Administration Loratadine 10 mg 05/19/20 10:00 05/31/20 11:39 Claritin - PO 10 mg DAILY JOSE ELIAS Administration Metolazone 2.5 mg 05/24/20 13:30 05/31/20 11:44 Zaroxolyn - PO 2.5 mg DAILY JOSE ELIAS Administration Multivitamins/Minerals/Vitamin C 1 tab 05/19/20 10:00 05/31/20 11:43 Tab-A-Vit - PO 1 tab DAILY JOSE ELIAS Administration Pantoprazole Sodium 40 mg 05/18/20 22:00 05/31/20 11:43 Protonix - PO 40 mg BID JOSE ELIAS Administration Polyethylene Glycol 17 gm 05/18/20 10:00 05/31/20 11:42 Miralax (For Daily Use) - PO Not Given DAILY JOSE ELIAS Senna 8.8 mg 05/21/20 13:37 05/30/20 22:00 Senna Oral Solution - PO 8.8 mg HS JOSE ELIAS Administration Tizanidine HCl 2 mg 05/18/20 15:46 05/31/20 11:44 Tizanidine Hcl PO 2 mg BID JOSE ELIAS Administration ASSESSMENT/PLAN: Patient is an 85 year old female with history of COPD (on home oxygen 2L), coronary artery disease (s/p stents), hyperlipidemia, diabetes mellitus (insulin dependnet), gastro-esophageal reflux, left eye blindness who is admitted for b/l lower extremity cellulitis. #B/L lower extremity vascualr changes and cellulitis - Off ABX, legs closer to baseline - discussed fluid restiction with patient -Duplex bilateral lower extremities negative for DVT - patient needs repeat PT eval #CAROLYN - resolved with holding diuretics - will stop metolazone as an outpatinet #Coronary artery disease -Continue home Aspirin, Atorvastatin, Isosorbide mononitrate #HEFpEF Lasix 40 PO Daily Heparin TID: DVT ppx Dispo: Patients home healthcare facility refuses patient as she cannot walk, needs repeat PT eval, if cannot walk should refer to SNF, discussed with Social work Visit type - Emergency Visit Emergency Visit: No - New Patient This patient is new to me today: Yes Date on this admission: 05/31/20 - Critical Care Critical Care patient: No - Medication Review Med list reviewed for High Risk Meds patients 65 and older: Yes ATTENDING PHYSICIAN STATEMENT I saw and evaluated the patient. I reviewed the resident's note and discussed the case with the resident. I agree with the resident's findings and plan as documented. SUBJECTIVE: OBJECTIVE: ASSESSMENT AND PLAN:
[2020-05-31] MEDS ORDERED: INSULIN (NOVOLOG) ASPART 100 UNITS/ML 10ML VIAL ONE (20:34)
[2020-05-31] MEDS: ATORVASTATIN CA 40 MG TABLET (FP) PO SCH (21:26)
[2020-05-31] MEDS: SENNOSIDES 8.8 MG/5 ML BULK BOTTLE PO SCH (21:28)
[2020-06-01] MEDS: HEPARIN NA (PORCINE) 5,000 UNITS/ML 1ML VIAL SQ SCH ×2 (06:08→14:56)
[2020-06-01] MEDS: INSULIN SLIDING SCALE (NOVOLOG) 1 VIAL SQ SCH ×2 (06:09→12:21)
[2020-06-01] MEDS ORDERED: INSULIN (NOVOLOG) ASPART 100 UNITS/ML 10ML VIAL ONE (06:32)
[2020-06-01 08:57] LABS: ALBUMIN 2.9 g/dl (3.4-5.0); BILIRUBIN,TOTAL 0.5 mg/dL (0.2-1); BLOOD UREA NITROGEN 43.3 mg/dL (7-18); CALCIUM 8.9 mg/dL (8.5-10.1); CREATININE 1.4 mg/dL (0.55-1.3); POTASSIUM 3.5 mmol/L (3.5-5.1); TOT PROT 6.1 g/dl (6.4-8.2)
[2020-06-01] MEDS ORDERED: PT OWN MED DRAWER 7, Y5N ONE (10:14)
[2020-06-01] MEDS: ASPIRIN 81 MG CHEWABLE TABLETS PO SCH (10:16)
[2020-06-01] MEDS: ASCORBIC ACID 500 MG TABLET (FP) PO SCH (10:16)
[2020-06-01] MEDS: BACITRACIN 15 GM TUBE TOPICAL OINTMENT TP SCH (10:16)
[2020-06-01] MEDS: ISOSORBIDE MONONITRATE 30 MG TAB.SR.24H (FP) PO SCH (10:16)
[2020-06-01] MEDS: FUROSEMIDE 40 MG TABLET (FP) PO SCH (10:16)
[2020-06-01] MEDS: PANTOPRAZOLE 40 MG TABLET PO SCH (10:16)
[2020-06-01] MEDS: BRIMONIDINE TARTRATE 0.2% OPHTHALMIC 5 ML BOTTLE OS SCH (10:16)
[2020-06-01] MEDS: LORATADINE 10 MG TABLET PO SCH (10:16)
[2020-06-01] MEDS: DOCUSATE SODIUM 100 MG CAPSULE (FP) PO SCH (10:16)
[2020-06-01] MEDS: MULTIVITAMINS (DAILY MVI) TABLET (FP) PO SCH (10:16)
[2020-06-01] MEDS: POLYETHYLENE GLYCOL 3350 119 GM BTL PO SCH (10:17)
[2020-06-01] MEDS: GABAPENTIN 400 MG CAPSULE PO SCH (10:17)
[2020-06-01] MEDS: DORZOLAMIDE 2% HCL OPHTHALMIC SOLUTION 10 ML BOTTLE OS SCH (10:18)
[2020-06-01] MEDS: TIZANIDINE HCL 2 MG TABLET PO SCH (10:18)
[2020-06-01] MEDS: METOLAZONE 2.5 MG TABLET (FP) PO SCH (10:19)
--- NOTE | 2020-06-01 13:36 | PN ---
Teaching Attending Note Name of Resident: Abdoul Osborne ATTENDING PHYSICIAN STATEMENT I saw and evaluated the patient. I reviewed the resident's note and discussed the case with the resident. I agree with the resident's findings and plan as documented. SUBJECTIVE: Seen and examined at bedside. Patient completed her seven-day course of antibi otics. Discharge held yesterday because patient did not meet criteria for discharge to her assisted living facility. reexamined by physical therapy today and still does not meet criteria. Patient is medically cleared for discharge to short-term rehab pending placement. Patient's creatinine has been borderline. She will be discharged on a fluid restriction and all of her home medications with the exception of metolazone. She is to follow-up with her canteen operator within 1 to 2 weeks to recheck her fluid status and creatinine and decide whether or not to restart metolazone OBJECTIVE Last Vital Signs Temp Pulse Resp BP Pulse Ox 98 F 60 20 127/65 100 06/01/20 10:06/01/20 10:06/01/20 10:06/01/20 10:06/01/20 10:01 PE: GEN: NAD HEENT: NC/AT [facility] RESP: CTAB CARDS: RRR, -MRG ABD: soft, nt/nd +BS EXT: swollen but with interval improvement Neuro: Non-focal, A&OX3 Labs/Imaging: reviewed ASSESSMENT/PLAN 85-year-old female with a history of NSTEMI status post stent, chronic diastolic CHF, COPD on 2 L nasal cannula, HLD, IDDM, venous insufficiency, chronic bilateral lower extremity wounds presents with severe hip and knee pain, CAROLYN, and cellulitis. . Wound culture was polymicrobial positive for MRSA and Pseudomonas. Patient was treated with 7-day course of vancomycin and Zosyn with improvement. Patient continues to have chronic lower extremity edema and is at risk for future episodes of cellulitis. Patient will be sent home on a fluid restriction and should follow-up with her canteen operator and PCP in 1 to 2 weeks
[2020-06-01 15:16] VITALS: BP 113/57; PULSE 67; TEMP 98.1
--- NOTE | 2020-06-01 18:17 | DS ---
Physical Exam: SUBJECTIVE: Patient seen and examined OBJECTIVE: Vital Signs Period Temp Pulse Resp BP Sys/Emerson Pulse Ox Last 24 Hr 98 F-98.9 F 59-67 20-20 113-133/49-65 94-100 PHYSICAL EXAM GENERAL: The patient is awake, alert, and fully oriented, in no acute distress. HEAD: Normal with no signs of trauma. EYES: PERRL, extraocular movements intact, sclera anicteric, conjunctiva clear. ENT: Ears normal, nares patent, oropharynx clear without exudates, moist mucous membranes. NECK: Trachea midline, full range of motion, supple. LUNGS: Breath sounds equal, clear to auscultation bilaterally, no wheezes, no crackles, no accessory muscle use. HEART: Regular rate and rhythm, S1, S2 without murmur, rub or gallop. ABDOMEN: Soft, nontender, nondistended, normoactive bowel sounds, no guarding, no rebound, no hepatosplenomegaly, no masses. EXTREMITIES: 2+ pulses, warm, well-perfused, no edema. NEUROLOGICAL: Cranial nerves II through XII grossly intact. Normal speech, gait not observed. PSYCH: Normal mood, normal affect. SKIN: Warm, dry, normal turgor, no rashes or lesions noted. LABS Laboratory Results - last 24 hr 05/31/20 06/01/20 06/01/20 20:55 05:49 07:33 Sodium 138 Potassium 3.5 Chloride 98 Carbon Dioxide 30 Anion Gap 10 BUN 43.3 H Creatinine 1.4 H Est GFR (CKD-EPI)AfAm 39.06 Est GFR (CKD-EPI)NonAf 33.70 POC Glucometer 220 214 Random Glucose 197 H Calcium 8.9 Total Bilirubin 0.5 AST 23 ALT 20 Alkaline Phosphatase 80 Total Protein 6.1 L Albumin 2.9 L 06/01/20 11:40 Sodium Potassium Chloride Carbon Dioxide Anion Gap BUN Creatinine Est GFR (CKD-EPI)AfAm Est GFR (CKD-EPI)NonAf POC Glucometer 206 Random Glucose Calcium Total Bilirubin AST ALT Alkaline Phosphatase Total Protein Albumin HOSPITAL COURSE: Date of Admission:05/17/20 Date of Discharge: 06/01/20 Discharge Summary Problems reviewed: Yes Reason For Visit: INTRACTABLE PAIN, CELLULITIS Condition: Stable - Instructions Diet, Activity, Other Instructions: You were admitted to the hospital for infection of your lower legs. We treated you with antibiotics and the infection is much better. Because you have chronic vascular changed in your legs it puts you at a higher risk of getting repeat infections. It is VERY important that you take care of your skin and that you restrict your fluids intake. Please do not drink more then 1.5 L of fluid a day. While you were here we did imaging of your knee and pelvis and did not find any fractures. Please follow up with Physical Therapy as an outpatient to help with your walking. While you were here your kidney function worsened a little. You are on a couple medications that can hurt your kidney function. Please STOP taking Metolazone. You should follow up with Dr. Murguia in ONE WEEK, o discuss when to restart this medication. Please continue all other home medications. Make a follow up appointment with your Primary Care Physician within one week . Return to the Emergency Department if you have any chest pain, shortness of breath, nausea, vomiting, or worsening of symptoms. Referrals: Carlo Murguia MD [Staff Physician] - 1 Week Elijah Sanders MD [Primary Care Provider] - 1 Week Disposition: ALF FACILITY - Home Medications Comprehensive Discharge Medication List: Ambulatory Orders Acetaminophen [Tylenol] 650 mg PO BID PRN 08/07/17 Ascorbic Acid [Vitamin C -] 500 mg PO DAILY 08/07/17 Atorvastatin Ca [Lipitor] 40 mg PO HS 08/07/17 Bacitracin - [Bacitracin Topical Ointment -] 1 applic TP PRN PRN 08/07/17 Gabapentin 300 mg PO BID 08/07/17 Loratadine [Claritin] 10 mg PO DAILY 08/07/17 Multivitamin [One Daily] 1 each PO DAILY 08/07/17 Furosemide [Lasix -] 40 mg PO BID #14 tablet MDD 2 08/14/17 Tamsulosin HCl [Flomax -] 0.4 mg PO DAILY@0830 #30 cap.er.24h MDD 1 08/14/17 Docusate Sodium [Colace -] 100 mg PO BID capsule 12/13/18 Alendronate Sodium [Binosto] 70 mg PO WEEKLY 05/17/20 Aspirin [ASA -] 1 tab PO DAILY 05/17/20 Brinzolamide/Brimonidine Tart [Simbrinza 1%-0.2% Eye Drops] 1 drop OS DAILY 05/17/20 Erythromycin 0.5% Eye Ointment [Erythromycin 0.5% Eye Ointment -] 1 applic OS DAILY 05/17/20 Isosorbide Mononitrate [Imdur -] 30 mg PO DAILY 05/17/20 Metformin HCl [Glucophage] 500 mg PO BID 05/17/20 Tizanidine HCl 2 mg PO BID 05/17/20 Valacyclovir HCl [Valacyclovir] 1,000 mg PO BID 05/17/20 Allopurinol [Zyloprim -] 1 tablet PO DAILY 05/28/20 Ammonium Lactate Lotion [Lac-Hydrin 12] 1 applic TP DAILY 05/28/20 Calcium Citrate/Vitamin D3 [Calcium Citrate - Vit D Tablet] 1 tab PO DAILY 05/28/20 Insulin Glargine,Hum.rec.anlog [Lantus (10mL VIAL) -] 30 units SQ DAILY 05/28/20 Insulin NPH Hum/Reg Insulin Hm [Novolin 70-30 Flexpen] See Protocol SQ DAILY 05/28/20 Mag Hydrox/Aluminum Hyd/Simeth [Karen-Lanta Liquid] 10 ml PO BID 05/28/20 Mupirocin Ointment [Bactroban 2% Ointment -] 1 applic TP DAILY 05/28/20 Pantoprazole Sodium 40 mg PO DAILY 05/28/20 Polyethylene Glycol 3350 [Purelax] 17 gm PO PRN 05/28/20 Polymyxin B Sulf/Trimethoprim [Polymyxin B-Tmp Eye Drops] 1 drop OU QID 05/28/20 Sitagliptin Phosphate [Januvia] 1 tab PO DAILY 05/28/20 Sodium Hypochlorite [Dakin's Solution 0.25% (Half-Strength) -] 1 applic TP DAILY 05/28/20 - Discharge Referral Referred to [id number] No ATTENDING PHYSICIAN STATEMENT I saw and evaluated the patient. I reviewed the resident's note and discussed the case with the resident. I agree with the resident's findings and plan as documented. SUBJECTIVE: OBJECTIVE: ASSESSMENT AND PLAN:
== END 2020-06-01 17:02 | DRG 603 ==
LOC: JER 19:07 → JERBED 23:20 → J5S 05-18 16:22
PROVIDERS: ADMIT Hospitalist; ATTEND Internal Medicine
DX: L03.116 Cellulitis of left lower limb (principal); N17.9 Acute kidney failure, unspecified; I50.32 Chronic diastolic (congestive) heart failure; E11.52 Type 2 diabetes mellitus with diabetic peripheral angiopathy with gangrene; E11.9 Type 2 diabetes mellitus without complications; E78.5 Hyperlipidemia, unspecified; J44.9 Chronic obstructive pulmonary disease, unspecified; I25.10 Atherosclerotic heart disease of native coronary artery without angina pectoris; Z95.5 Presence of coronary angioplasty implant and graft; K21.9 Gastro-esophageal reflux disease without esophagitis; I11.0 Hypertensive heart disease with heart failure; D72.829 Elevated white blood cell count, unspecified; I87.2 Venous insufficiency (chronic) (peripheral); M25.552 Pain in left hip; E83.39 Other disorders of phosphorus metabolism; L03.115 Cellulitis of right lower limb; E66.9 Obesity, unspecified; Z68.34 Body mass index [BMI] 34.0-34.9, adult; E87.70 Fluid overload, unspecified
CPT/HCPCS: 29581-LT; 29581-RT; 36415; 71045-TC-FY; 72192-TC; 73523-TC-FY; 73560-TC-LT-FY; 73700-TC-RT; 80048; 80053; 82550; 82962; 83735; 84100; 84484; 85025; 85027; 85379; 86850; 86900; 86901; 87040; 87070; 87186; 87205; 93005; 93010; 93971-TC; 97161-GP; 99285-25; A4649; A6196; G0463-25; G0480; J0131; J1644; U0003

== ENCOUNTER 2021-02-19 16:59 | Observation (INO) | payer OTHER, BC ==
[2021-02-19] MEDS ORDERED: SODIUM CHLORIDE 1,000 ML IV SCH (17:15)
[2021-02-19] MEDS ORDERED: DEXAMETHASONE SOD PHOSPHATE 10 MG/1 ML VIAL IVPUSH ONE (17:43)
[2021-02-19] MEDS ORDERED: DEXAMETHASONE SOD PHOSPHATE 10 MG/1 ML VIAL ONE (18:10)
[2021-02-19 18:11] LABS: BASO % 0.6 % (0-2.0); EOS % 2.2 % (0-4.5); HEMATOCRIT 37.1 % (32.4-45.2); LYMPH % 14.4 % (8-40); MCH 28.6 pg (25.7-33.7); MCHC 32.4 g/dl (32.0-36.0); MEAN CELL VOLUME 88.1 fl (80-96); MEAN PLT VOLUME 9.2 fl (7.5-11.1); MONO % 8.7 % (3.8-10.2); NEUT % 74.1 % (42.8-82.8); PLATELET COUNT 196 10^3/uL (134-434); RBC 4.21 M/mm3 (3.60-5.2); RDW 16.2 % (11.6-15.6); WHITE BLOOD COUNT 8.1 K/mm3 (4.0-10.0)
[2021-02-19 18:16] LABS: INR 0.94 (0.83-1.09); PROTHROMBIN TIME (PATIENT) 11.4 SEC (9.7-13.0)
[2021-02-19 18:19] LABS: ACTIVATED PTT 33.6 SECONDS (25.2-36.5)
[2021-02-19 18:35] LABS: CHLORIDE 103 mmol/L (98-107); SODIUM 139 mmol/L (136-145)
[2021-02-19 18:37] LABS: CALCIUM 9.1 mg/dL (8.5-10.1)
[2021-02-19 18:38] LABS: ALBUMIN 3.7 g/dl (3.4-5.0); ANION GAP 8 MMOL/L (8-16); BLOOD UREA NITROGEN 44.3 mg/dL (7-18); CO2 28 mmol/L (21-32); GLUCOSE,RANDOM 148 mg/dL (74-106)
[2021-02-19 18:41] LABS: CREATININE 1.3 mg/dL (0.55-1.3); SGOT/AST 20 U/L (15-37); SGPT/ALT 43 U/L (13-61)
[2021-02-19 18:42] LABS: BILIRUBIN,TOTAL 0.3 mg/dL (0.2-1); CHOLESTEROL 146 mg/dL (50-200); TRIGLYCERIDES 366 mg/dL (0-150)
[2021-02-19 18:43] LABS: HDL CHOLESTEROL 34 mg/dL (40-60); LDL CHOLESTEROL (ONLY SJRH) 64 mg/dL (5-100); TOT PROT 7.1 g/dl (6.4-8.2)
[2021-02-19 18:44] LABS: ALK PHOS 128 U/L (45-117)
[2021-02-19 19:32] LABS: EPI CELLS 9 /uL (0-25.1); HYALINE CASTS 2 /uL (0-3.1); URINE APPEARANCE CLEAR; URINE BACTERIA 7 /uL (0-1359); URINE BILIRUBIN NEGATIVE (NEGATIVE); URINE COLOR YELLOW; URINE GLUCOSE (UA) NEGATIVE (NEGATIVE); URINE KETONE NEGATIVE (NEGATIVE); URINE LEUK ESTERASE 1+ (NEGATIVE); URINE NITRITE NEGATIVE (NEGATIVE); URINE PROTEIN NEGATIVE (NEGATIVE); URINE RBC 1 /uL (0-23.9); URINE WBC 9 /uL (0-25.8)
[2021-02-19] MEDS ORDERED: ASPIRIN 81 MG CHEWABLE TABLETS PO ONE (23:15)
[2021-02-19] MEDS ORDERED: ASPIRIN 81 MG CHEWABLE TABLETS ONE (23:19)
[2021-02-20] MEDS ORDERED: ACETAMINOPHEN 325 MG TABLET (FP) PO PRN (02:24)
[2021-02-20] MEDS ORDERED: amLODIPine BESYLATE 5 MG TABLET (FP) PO PRN (03:05)
[2021-02-20] MEDS ORDERED: FUROSEMIDE 40 MG TABLET (FP) ONE ×2 (05:39→13:54)
[2021-02-20] MEDS: FUROSEMIDE 40 MG TABLET (FP) PO SCH ×2 (05:57→13:58)
[2021-02-20 06:11] LABS: HEMATOCRIT 41.9 % (32.4-45.2); HEMOGLOBIN 13.2 GM/dL (10.7-15.3); MCH 28.5 pg (25.7-33.7); MCHC 31.5 g/dl (32.0-36.0); MEAN CELL VOLUME 90.5 fl (80-96); MEAN PLT VOLUME 9.6 fl (7.5-11.1); PLATELET COUNT 199 10^3/uL (134-434); RBC 4.63 M/mm3 (3.60-5.2); RDW 16.7 % (11.6-15.6); WHITE BLOOD COUNT 9.4 K/mm3 (4.0-10.0)
[2021-02-20 06:30] LABS: ALBUMIN 4.1 g/dl (3.4-5.0); CALCIUM 9.3 mg/dL (8.5-10.1)
[2021-02-20 06:31] LABS: BLOOD UREA NITROGEN 42.2 mg/dL (7-18); MAGNESIUM 1.8 mg/dL (1.8-2.4)
[2021-02-20 06:34] LABS: CREATININE 1.4 mg/dL (0.55-1.3); PHOSPHOROUS 3.8 mg/dL (2.5-4.9)
[2021-02-20 06:35] LABS: BILIRUBIN,TOTAL 0.3 mg/dL (0.2-1); TOT PROT 7.7 g/dl (6.4-8.2)
[2021-02-20] MEDS: INSULIN SLIDING SCALE (NOVOLOG) 1 VIAL SQ SCH ×4 (07:31→22:25)
[2021-02-20] MEDS ORDERED: TAMSULOSIN HCL 0.4 MG CAP ONE (08:30)
[2021-02-20] MEDS: INSULIN (LEVEMIR) 100 UNITS/ML UNITS SQ SCH ×2 (08:30→22:25)
[2021-02-20] MEDS: TAMSULOSIN HCL 0.4 MG CAP PO SCH (08:30)
[2021-02-20] MEDS ORDERED: ASPIRIN 81 MG CHEWABLE TABLETS ONE (09:06)
[2021-02-20] MEDS ORDERED: ASCORBIC ACID 500 MG TABLET (FP) ONE (09:06)
[2021-02-20] MEDS ORDERED: PANTOPRAZOLE 40 MG TABLET ONE (09:06)
[2021-02-20] MEDS ORDERED: ENOXAPARIN NA (PORCINE) 40 MG/0.4 ML DISP.SYRIN SQ ONE (09:07)
[2021-02-20] MEDS ORDERED: DOCUSATE SODIUM 100 MG CAPSULE (FP) PO ONE (09:07)
[2021-02-20] MEDS: ASPIRIN 81 MG CHEWABLE TABLETS PO SCH (09:13)
[2021-02-20] MEDS: DOCUSATE SODIUM 100 MG CAPSULE (FP) PO SCH ×2 (09:13→22:25)
[2021-02-20] MEDS: FEBUXOSTAT 40 MG TAB PO SCH (09:13)
[2021-02-20] MEDS: ISOSORBIDE MONONITRATE 30 MG TAB.SR.24H (FP) PO SCH (09:13)
[2021-02-20] MEDS: PANTOPRAZOLE 40 MG TABLET PO SCH (09:13)
[2021-02-20] MEDS: ASCORBIC ACID 500 MG TABLET (FP) PO SCH (09:13)
[2021-02-20] MEDS: GABAPENTIN 300 MG CAPSULE PO SCH ×2 (09:13→22:25)
[2021-02-20] MEDS: ENOXAPARIN NA (PORCINE) 40 MG/0.4 ML DISP.SYRIN SQ SCH (09:13)
[2021-02-20 10:58] LABS: ANISOCYTOSIS 0; MACROCYTOSIS 0; PLATELET ESTIMATE NORMAL
[2021-02-20 18:32] VITALS: BMI 35.9
[2021-02-20] MEDS ORDERED: LORazepam 2 MG/ML SDV VIAL IVPUSH ONE (21:40)
[2021-02-20] MEDS: ATORVASTATIN CA 40 MG TABLET (FP) PO SCH (22:25)
[2021-02-21] MEDS ORDERED: LORazepam 2 MG/ML SDV VIAL IM ONE (04:08)
[2021-02-21] MEDS: FUROSEMIDE 40 MG TABLET (FP) PO SCH ×2 (06:00→13:48)
[2021-02-21] MEDS: INSULIN (LEVEMIR) 100 UNITS/ML UNITS SQ SCH ×2 (06:02→23:26)
[2021-02-21] MEDS: INSULIN SLIDING SCALE (NOVOLOG) 1 VIAL SQ SCH ×4 (06:03→23:27)
[2021-02-21 07:03] LABS: BLOOD UREA NITROGEN 45.3 mg/dL (7-18)
[2021-02-21 07:07] LABS: CREATININE 1.2 mg/dL (0.55-1.3)
[2021-02-21] MEDS ORDERED: HALOPERIDOL LACTATE 5 MG/ML IM ONE ×2 (08:30→16:23)
[2021-02-21] MEDS: ENOXAPARIN NA (PORCINE) 40 MG/0.4 ML DISP.SYRIN SQ SCH (09:36)
[2021-02-21] MEDS: TAMSULOSIN HCL 0.4 MG CAP PO SCH (09:48)
[2021-02-21] MEDS: DOCUSATE SODIUM 100 MG CAPSULE (FP) PO SCH ×2 (11:31→23:26)
[2021-02-21] MEDS ORDERED: PT OWN MED DRAWER 7, Y5N ONE (12:00)
[2021-02-21] MEDS: ASCORBIC ACID 500 MG TABLET (FP) PO SCH (12:02)
[2021-02-21] MEDS: ISOSORBIDE MONONITRATE 30 MG TAB.SR.24H (FP) PO SCH (12:02)
[2021-02-21] MEDS: GABAPENTIN 300 MG CAPSULE PO SCH ×2 (12:02→23:26)
[2021-02-21] MEDS: PANTOPRAZOLE 40 MG TABLET PO SCH (12:02)
[2021-02-21] MEDS: ASPIRIN 81 MG CHEWABLE TABLETS PO SCH (12:02)
[2021-02-21] MEDS: FEBUXOSTAT 40 MG TAB PO SCH (12:07)
[2021-02-21] MEDS: ATORVASTATIN CA 40 MG TABLET (FP) PO SCH (23:26)
[2021-02-22] MEDS: FUROSEMIDE 40 MG TABLET (FP) PO SCH ×2 (06:25→13:31)
[2021-02-22] MEDS: INSULIN SLIDING SCALE (NOVOLOG) 1 VIAL SQ SCH ×4 (06:26→21:39)
[2021-02-22] MEDS: INSULIN (LEVEMIR) 100 UNITS/ML UNITS SQ SCH ×2 (06:26→21:38)
[2021-02-22 07:34] LABS: HEMATOCRIT 38.5 % (32.4-45.2); HEMOGLOBIN 12.1 GM/dL (10.7-15.3); MCH 28.2 pg (25.7-33.7); MCHC 31.3 g/dl (32.0-36.0); MEAN CELL VOLUME 89.9 fl (80-96); MEAN PLT VOLUME 9.9 fl (7.5-11.1); PLATELET COUNT 205 10^3/uL (134-434); RBC 4.28 M/mm3 (3.60-5.2); RDW 16.2 % (11.6-15.6); WHITE BLOOD COUNT 9.4 K/mm3 (4.0-10.0)
[2021-02-22 07:59] LABS: BLOOD UREA NITROGEN 33.1 mg/dL (7-18)
[2021-02-22 08:00] LABS: ALBUMIN 3.4 g/dl (3.4-5.0); CALCIUM 8.5 mg/dL (8.5-10.1); MAGNESIUM 1.8 mg/dL (1.8-2.4)
[2021-02-22 08:03] LABS: CREATININE 1.1 mg/dL (0.55-1.3); PHOSPHOROUS 4.1 mg/dL (2.5-4.9)
[2021-02-22 08:04] LABS: BILIRUBIN,TOTAL 0.7 mg/dL (0.2-1); TOT PROT 6.5 g/dl (6.4-8.2)
[2021-02-22] MEDS ORDERED: PT OWN MED DRAWER 7, Y5N ONE ×3 (08:52→12:40)
[2021-02-22] MEDS: GABAPENTIN 300 MG CAPSULE PO SCH ×2 (09:20→21:41)
[2021-02-22] MEDS: ISOSORBIDE MONONITRATE 30 MG TAB.SR.24H (FP) PO SCH (09:20)
[2021-02-22] MEDS: FEBUXOSTAT 40 MG TAB PO SCH (09:21)
[2021-02-22] MEDS: ASPIRIN 81 MG CHEWABLE TABLETS PO SCH (09:21)
[2021-02-22] MEDS: DOCUSATE SODIUM 100 MG CAPSULE (FP) PO SCH ×2 (09:21→21:41)
[2021-02-22] MEDS: TAMSULOSIN HCL 0.4 MG CAP PO SCH (09:21)
[2021-02-22] MEDS: PANTOPRAZOLE 40 MG TABLET PO SCH (09:21)
[2021-02-22] MEDS: ASCORBIC ACID 500 MG TABLET (FP) PO SCH (09:21)
[2021-02-22] MEDS: ENOXAPARIN NA (PORCINE) 40 MG/0.4 ML DISP.SYRIN SQ SCH (09:21)
[2021-02-22] MEDS ORDERED: SILVER SULFADIAZINE 1% TOP CREAM 50 GM JAR TP ONE (12:00)
[2021-02-22] MEDS: ATORVASTATIN CA 40 MG TABLET (FP) PO SCH (21:42)
[2021-02-23] MEDS: INSULIN SLIDING SCALE (NOVOLOG) 1 VIAL SQ SCH ×4 (06:06→22:15)
[2021-02-23] MEDS: FUROSEMIDE 40 MG TABLET (FP) PO SCH ×2 (06:07→13:33)
[2021-02-23] MEDS: INSULIN (LEVEMIR) 100 UNITS/ML UNITS SQ SCH ×2 (06:07→22:17)
[2021-02-23 07:29] LABS: HEMATOCRIT 39.2 % (32.4-45.2); HEMOGLOBIN 12.3 GM/dL (10.7-15.3); MCHC 31.3 g/dl (32.0-36.0); MEAN CELL VOLUME 89.3 fl (80-96); MEAN PLT VOLUME 9.5 fl (7.5-11.1); PLATELET COUNT 200 10^3/uL (134-434); RDW 16.5 % (11.6-15.6); WHITE BLOOD COUNT 8.3 K/mm3 (4.0-10.0)
[2021-02-23 07:53] LABS: BLOOD UREA NITROGEN 40.6 mg/dL (7-18)
[2021-02-23 07:54] LABS: CALCIUM 8.5 mg/dL (8.5-10.1)
[2021-02-23 07:55] LABS: ALBUMIN 3.4 g/dl (3.4-5.0); MAGNESIUM 2.1 mg/dL (1.8-2.4)
[2021-02-23 07:58] LABS: BILIRUBIN,TOTAL 0.6 mg/dL (0.2-1); CREATININE 1.2 mg/dL (0.55-1.3); PHOSPHOROUS 3.8 mg/dL (2.5-4.9); TOT PROT 6.5 g/dl (6.4-8.2)
[2021-02-23] MEDS: TAMSULOSIN HCL 0.4 MG CAP PO SCH (08:59)
[2021-02-23] MEDS ORDERED: PT OWN MED DRAWER 7, Y5N ONE (09:31)
[2021-02-23] MEDS: ENOXAPARIN NA (PORCINE) 40 MG/0.4 ML DISP.SYRIN SQ SCH (09:47)
[2021-02-23] MEDS: FEBUXOSTAT 40 MG TAB PO SCH (09:48)
[2021-02-23] MEDS: DOCUSATE SODIUM 100 MG CAPSULE (FP) PO SCH ×2 (09:48→22:15)
[2021-02-23] MEDS: GABAPENTIN 300 MG CAPSULE PO SCH ×2 (09:48→22:15)
[2021-02-23] MEDS: ISOSORBIDE MONONITRATE 30 MG TAB.SR.24H (FP) PO SCH (09:48)
[2021-02-23] MEDS: ASPIRIN 81 MG CHEWABLE TABLETS PO SCH (09:48)
[2021-02-23] MEDS: ASCORBIC ACID 500 MG TABLET (FP) PO SCH (09:48)
[2021-02-23] MEDS: PANTOPRAZOLE 40 MG TABLET PO SCH (09:48)
[2021-02-23] MEDS ORDERED: POTASSIUM CHLORIDE TABS 20 MEQ TABLET.ER (FP) PO ONE (12:55)
[2021-02-23] MEDS: ATORVASTATIN CA 40 MG TABLET (FP) PO SCH (22:15)
[2021-02-24] MEDS: INSULIN SLIDING SCALE (NOVOLOG) 1 VIAL SQ SCH (06:12)
[2021-02-24] MEDS: INSULIN (LEVEMIR) 100 UNITS/ML UNITS SQ SCH (06:12)
[2021-02-24] MEDS: FUROSEMIDE 40 MG TABLET (FP) PO SCH (06:12)
[2021-02-24] MEDS: ASPIRIN 81 MG CHEWABLE TABLETS PO SCH (09:46)
[2021-02-24] MEDS: TAMSULOSIN HCL 0.4 MG CAP PO SCH (09:46)
[2021-02-24] MEDS: DOCUSATE SODIUM 100 MG CAPSULE (FP) PO SCH (09:46)
[2021-02-24] MEDS: GABAPENTIN 300 MG CAPSULE PO SCH (09:46)
[2021-02-24] MEDS: ISOSORBIDE MONONITRATE 30 MG TAB.SR.24H (FP) PO SCH (09:46)
[2021-02-24] MEDS: PANTOPRAZOLE 40 MG TABLET PO SCH (09:46)
[2021-02-24] MEDS: ASCORBIC ACID 500 MG TABLET (FP) PO SCH (09:46)
[2021-02-24] MEDS: ENOXAPARIN NA (PORCINE) 40 MG/0.4 ML DISP.SYRIN SQ SCH (09:46)
[2021-02-24] MEDS: FEBUXOSTAT 40 MG TAB PO SCH (09:47)
[2021-02-24 09:54] VITALS: BP 140/54; PULSE 70; TEMP 98.1
== END 2021-02-24 11:07 ==
LOC: JER 16:59 → JERBED 23:16 → INTOOBSV 23:16 → J4S 02-20 15:57
PROVIDERS: ADMIT Hospitalist; ATTEND Internal Medicine
PROC: 3E033NZ Introduction of Analgesics, Hypnotics, Sedatives into Peripheral Vein, Percutaneous Approach (ICD-10-PCS; principal; 2021-02-19)
PROC: 3E013VG Introduction of Insulin into Subcutaneous Tissue, Percutaneous Approach (ICD-10-PCS; 2021-02-19)
PROC: 3E013GC Introduction of Other Therapeutic Substance into Subcutaneous Tissue, Percutaneous Approach (ICD-10-PCS; 2021-02-19)
PROC: 3E023GC Introduction of Other Therapeutic Substance into Muscle, Percutaneous Approach (ICD-10-PCS; 2021-02-19)
DX: G45.9 Transient cerebral ischemic attack, unspecified (principal); R49.9 Unspecified voice and resonance disorder; I11.0 Hypertensive heart disease with heart failure; E66.9 Obesity, unspecified; Z68.35 Body mass index [BMI] 35.0-35.9, adult; R79.89 Other specified abnormal findings of blood chemistry; E78.5 Hyperlipidemia, unspecified; Z79.4 Long term (current) use of insulin; Z79.84 Long term (current) use of oral hypoglycemic drugs; E11.22 Type 2 diabetes mellitus with diabetic chronic kidney disease; I13.0 Hypertensive heart and chronic kidney disease with heart failure and stage 1 through stage 4 chronic kidney disease, or unspecified chronic kidney disease; N18.9 Chronic kidney disease, unspecified; I25.10 Atherosclerotic heart disease of native coronary artery without angina pectoris; Z85.828 Personal history of other malignant neoplasm of skin; J44.9 Chronic obstructive pulmonary disease, unspecified; K21.9 Gastro-esophageal reflux disease without esophagitis; K57.30 Diverticulosis of large intestine without perforation or abscess without bleeding; N28.1 Cyst of kidney, acquired; I70.8 Atherosclerosis of other arteries; Z99.81 Dependence on supplemental oxygen; Z95.5 Presence of coronary angioplasty implant and graft; M81.0 Age-related osteoporosis without current pathological fracture; M62.81 Muscle weakness (generalized); R41.0 Disorientation, unspecified; N17.9 Acute kidney failure, unspecified; G62.9 Polyneuropathy, unspecified
CPT/HCPCS: 36415; 70450-TC; 70491-TC; 71045-TC-FY; 74177-TC; 80048; 80053; 80061; 81003; 82550; 82962; 83721; 83735; 84100; 84443; 84484; 85025; 85027; 85610; 85730; 86850; 86900; 86901; 93005; 93010; 96372; 96374; 96375; 97116-GP; 99285-25; C9803; E0186; G0378; J1100; Q9967; U0003; U0005

== ENCOUNTER 2021-03-30 16:29 | Inpatient (IN) | payer OTHER, BC ==
[2021-03-30 16:47] VITALS: BMI 35.4
[2021-03-30] MEDS ORDERED: VANCOMYCIN 1 GM in D5W (PRE-DOCKED) 1,000 MG/250 ML IVPB ONE (18:40)
[2021-03-30] MEDS ORDERED: PIPERACILLIN/TAZOB 3.375 GM 3.375 GM in DEXTROSE 5%-WATER - 50 ML IVPB ONE (18:49)
[2021-03-30] MEDS ORDERED: FUROSEMIDE 40 MG/4 ML INJECTABLE VIAL IVPUSH ONE (19:38)
[2021-03-30 20:31] LABS: BASO % 0.3 % (0-2.0); EOS % 1.4 % (0-4.5); HEMATOCRIT 30.9 % (32.4-45.2); LYMPH % 7.2 % (8-40); MCH 27.5 pg (25.7-33.7); MCHC 32.2 g/dl (32.0-36.0); MEAN CELL VOLUME 85.3 fl (80-96); MEAN PLT VOLUME 8.8 fl (7.5-11.1); MONO % 8.8 % (3.8-10.2); NEUT % 82.3 % (42.8-82.8); PLATELET COUNT 227 10^3/uL (134-434); RBC 3.62 M/mm3 (3.60-5.2); RDW 17.1 % (11.6-15.6); WHITE BLOOD COUNT 8.8 K/mm3 (4.0-10.0)
[2021-03-30 20:35] LABS: VENOUS BASE EXCESS -5.1 mmol/L (-2-2); VENOUS O2 SATURATION 56.8 % (70-80); VENOUS PCO2 40.3 mmHg (38-52); VENOUS PH 7.325 (7.310-7.410)
[2021-03-30] MEDS ORDERED: FUROSEMIDE 40 MG/4 ML INJECTABLE VIAL ONE (20:41)
[2021-03-30] MEDS ORDERED: PIPERACILLIN/TAZOB 3.375 GM 3.375 GM/50 ML BAG IVPB ONE (20:41)
[2021-03-30 20:46] LABS: INR 1.03 (0.83-1.09); PROTHROMBIN TIME (PATIENT) 12.4 SEC (9.7-13.0)
[2021-03-30 20:55] LABS: CHLORIDE 109 mmol/L (98-107); SODIUM 142 mmol/L (136-145)
[2021-03-30 20:57] LABS: ALBUMIN 3.2 g/dl (3.4-5.0); ANION GAP 9 MMOL/L (8-16); BLOOD UREA NITROGEN 35.4 mg/dL (7-18); CALCIUM 8.5 mg/dL (8.5-10.1); CO2 24 mmol/L (21-32); GLUCOSE,RANDOM 213 mg/dL (74-106)
[2021-03-30 21:00] LABS: CREATININE 1.2 mg/dL (0.55-1.3); SGOT/AST 8 U/L (15-37); SGPT/ALT 23 U/L (13-61)
[2021-03-30 21:02] LABS: BILIRUBIN,TOTAL 0.4 mg/dL (0.2-1); TOT PROT 6.3 g/dl (6.4-8.2)
[2021-03-30 21:03] LABS: ALK PHOS 119 U/L (45-117)
[2021-03-30 21:05] LABS: N-TERMINAL BNP 680.8 pg/ml (5-450)
[2021-03-30] MEDS ORDERED: VANCOMYCIN 1 GRAM (PRE-DOCKED) 1,000 MG/250 ML BAG IVPB ONE (21:23)
[2021-03-30] MEDS ORDERED: ASPIRIN 81 MG CHEWABLE TABLETS PO ONE (21:34)
[2021-03-30 21:59] LABS: ERYTHROCYTE SEDIMENTATION RATE 51 mm/hr (0-30)
[2021-03-30] MEDS ORDERED: ASPIRIN 81 MG CHEWABLE TABLETS ONE (22:03)
[2021-03-30 22:34] LABS: URINE APPEARANCE CLEAR; URINE BILIRUBIN NEGATIVE (NEGATIVE); URINE COLOR YELLOW; URINE GLUCOSE (UA) NEGATIVE (NEGATIVE); URINE KETONE NEGATIVE (NEGATIVE); URINE LEUK ESTERASE NEGATIVE (NEGATIVE); URINE NITRITE NEGATIVE (NEGATIVE); URINE PROTEIN NEGATIVE (NEGATIVE); URINE UROBILINOGEN 0.2 mg/dL (0.2-1.0)
[2021-03-30] MEDS ORDERED: FUROSEMIDE 40 MG/4 ML INJECTABLE VIAL IVPB ONE (23:02)
[2021-03-31] MEDS ORDERED: FUROSEMIDE 40 MG/4 ML INJECTABLE VIAL IVPUSH ONE (00:18)
[2021-03-31] MEDS ORDERED: HEPARIN NA (PORCINE) 5,000 UNITS/ML 1ML VIAL ONE ×2 (05:58→14:13)
[2021-03-31] MEDS: HEPARIN NA (PORCINE) 5,000 UNITS/ML 1ML VIAL SQ SCH ×3 (06:16→23:14)
[2021-03-31] MEDS: ACETAMINOPHEN 325 MG TABLET (FP) PO PRN ×2 (06:17→15:44)
[2021-03-31 06:41] LABS: HEMATOCRIT 31.1 % (32.4-45.2); HEMOGLOBIN 10.3 GM/dL (10.7-15.3); MCH 28.4 pg (25.7-33.7); MCHC 33.1 g/dl (32.0-36.0); MEAN CELL VOLUME 85.8 fl (80-96); MEAN PLT VOLUME 9.1 fl (7.5-11.1); PLATELET COUNT 201 10^3/uL (134-434); RBC 3.62 M/mm3 (3.60-5.2); RDW 16.9 % (11.6-15.6); WHITE BLOOD COUNT 8.6 K/mm3 (4.0-10.0)
[2021-03-31 06:46] LABS: INR 1.07 (0.83-1.09); PROTHROMBIN TIME (PATIENT) 12.9 SEC (9.7-13.0)
[2021-03-31 06:56] LABS: CHLORIDE 109 mmol/L (98-107); SODIUM 141 mmol/L (136-145)
[2021-03-31 06:59] LABS: ALBUMIN 3.1 g/dl (3.4-5.0); ANION GAP 10 MMOL/L (8-16); BLOOD UREA NITROGEN 30.5 mg/dL (7-18); CALCIUM 8.7 mg/dL (8.5-10.1); CO2 22 mmol/L (21-32); GLUCOSE,RANDOM 241 mg/dL (74-106); MAGNESIUM 1.5 mg/dL (1.8-2.4)
[2021-03-31 07:02] LABS: CHOLESTEROL 134 mg/dL (50-200); CREATININE 1.1 mg/dL (0.55-1.3); PHOSPHOROUS 3.5 mg/dL (2.5-4.9); SGOT/AST 10 U/L (15-37); SGPT/ALT 22 U/L (13-61); TRIGLYCERIDES 164 mg/dL (0-150)
[2021-03-31 07:03] LABS: BILIRUBIN,TOTAL 0.5 mg/dL (0.2-1); LDL CHOLESTEROL (ONLY SJRH) 61 mg/dL (5-100); TOT PROT 6.1 g/dl (6.4-8.2)
[2021-03-31 07:04] LABS: HDL CHOLESTEROL 51 mg/dL (40-60)
[2021-03-31 07:05] LABS: ALK PHOS 115 U/L (45-117)
[2021-03-31] MEDS: INSULIN SLIDING SCALE (NOVOLOG) 1 VIAL SQ SCH ×4 (07:16→23:14)
[2021-03-31] MEDS ORDERED: ALBUTEROL SO4 0.083% IH SOL 2.5 MG/3 ML VIAL.NEB. NEB PRN (09:10)
[2021-03-31] MEDS ORDERED: ASPIRIN COATED 81 MG TABLET.EC ONE (09:35)
[2021-03-31] MEDS ORDERED: FUROSEMIDE 40 MG/4 ML INJECTABLE VIAL ONE (09:35)
[2021-03-31] MEDS: FUROSEMIDE 40 MG/4 ML INJECTABLE VIAL IVPUSH SCH (09:42)
[2021-03-31] MEDS: ASPIRIN COATED 81 MG TABLET.EC PO SCH (09:42)
[2021-03-31] MEDS ORDERED: MAGNESIUM OXIDE 400 MG TABLET (FP) ONE (09:59)
[2021-03-31] MEDS ORDERED: PIPERACILLIN/TAZOB 3.375 GM 3.375 GM in DEXTROSE 5%-WATER - 50 ML IVPB ONE (10:00)
[2021-03-31] MEDS ORDERED: MAGNESIUM OXIDE 400 MG TABLET (FP) PO ONE (10:00)
[2021-03-31] MEDS ORDERED: PIPERACILLIN/TAZOB 3.375 GM 3.375 GM/50 ML BAG IVPB ONE (10:00)
[2021-03-31] MEDS ORDERED: ACETAMINOPHEN 325 MG TABLET (FP) ONE (15:42)
[2021-03-31] MEDS: ATORVASTATIN CA 40 MG TABLET (FP) PO SCH (23:14)
[2021-04-01] MEDS: INSULIN SLIDING SCALE (NOVOLOG) 1 VIAL SQ SCH ×4 (06:22→23:22)
[2021-04-01] MEDS: HEPARIN NA (PORCINE) 5,000 UNITS/ML 1ML VIAL SQ SCH ×3 (06:22→23:16)
[2021-04-01] MEDS ORDERED: LORazepam 2 MG/ML SDV VIAL IVPUSH PRN (07:38)
[2021-04-01 08:48] LABS: BASO % 0.1 % (0-2.0); EOS % 1.5 % (0-4.5); HEMOGLOBIN 10.2 GM/dL (10.7-15.3); MCH 28.1 pg (25.7-33.7); MCHC 32.8 g/dl (32.0-36.0); MEAN CELL VOLUME 85.7 fl (80-96); MEAN PLT VOLUME 8.8 fl (7.5-11.1); MONO % 6.6 % (3.8-10.2); NEUT % 86.8 % (42.8-82.8); PLATELET COUNT 224 10^3/uL (134-434); RBC 3.61 M/mm3 (3.60-5.2); RDW 17.5 % (11.6-15.6); WHITE BLOOD COUNT 8.1 K/mm3 (4.0-10.0)
[2021-04-01 09:05] LABS: ALBUMIN 2.8 g/dl (3.4-5.0); BLOOD UREA NITROGEN 32.3 mg/dL (7-18); CALCIUM 8.4 mg/dL (8.5-10.1); MAGNESIUM 1.9 mg/dL (1.8-2.4)
[2021-04-01 09:08] LABS: CREATININE 1.2 mg/dL (0.55-1.3)
[2021-04-01 09:10] LABS: BILIRUBIN,TOTAL 0.6 mg/dL (0.2-1); TOT PROT 5.8 g/dl (6.4-8.2)
[2021-04-01] MEDS ORDERED: CEFTRIAXONE 1 GM in DEXTROSE 5%-WATER - 50 ML IVPB SCH (15:00)
[2021-04-01] MEDS: GABAPENTIN 300 MG CAPSULE PO SCH ×2 (15:02→23:18)
[2021-04-01] MEDS: ASPIRIN COATED 81 MG TABLET.EC PO SCH (15:02)
[2021-04-01] MEDS: FUROSEMIDE 40 MG/4 ML INJECTABLE VIAL IVPUSH SCH (15:02)
[2021-04-01] MEDS ORDERED: PIPERACILLIN/TAZOBACTAM 3.375 GM VIAL IVPB ONE (16:21)
[2021-04-01] MEDS ORDERED: DEXTROSE 5%-WATER - 50 ML IVPB ONE (16:21)
[2021-04-01] MEDS: PIPERACILLIN/TAZOB 3.375 GM 3.375 GM in DEXTROSE 5%-WATER - 50 ML IVPB SCH (16:56)
[2021-04-01] MEDS: QUEtiapine FUMARATE 25 MG TABLET PO SCH (16:56)
[2021-04-01] MEDS ORDERED: FUROSEMIDE 40 MG/4 ML INJECTABLE VIAL IVPUSH ONE (19:43)
[2021-04-01 20:41] LABS: ARTERIAL BLD GAS O2 SATURATION 99.1 % (95-98); ARTERIAL BLOOD GAS BASE EXCESS -5.9 mmol/L (-2-2); ARTERIAL BLOOD GAS PO2 173.5 mmHg (80-100); ARTERIAL BLOOD GAS pH 7.326 (7.350-7.450)
[2021-04-01 20:43] LABS: VENT MODE S/T
[2021-04-01 20:44] LABS: VENT RATE 14
[2021-04-01] MEDS: ATORVASTATIN CA 40 MG TABLET (FP) PO SCH (23:18)
[2021-04-02] MEDS ORDERED: DEXTROSE 5%-WATER - 50 ML IVPB ONE ×3 (02:10→17:03)
[2021-04-02] MEDS ORDERED: PIPERACILLIN/TAZOBACTAM 3.375 GM VIAL IVPB ONE ×3 (02:10→17:03)
[2021-04-02] MEDS: PIPERACILLIN/TAZOB 3.375 GM 3.375 GM in DEXTROSE 5%-WATER - 50 ML IVPB SCH ×3 (02:26→17:19)
[2021-04-02] MEDS: INSULIN SLIDING SCALE (NOVOLOG) 1 VIAL SQ SCH ×3 (06:53→17:20)
[2021-04-02] MEDS: HEPARIN NA (PORCINE) 5,000 UNITS/ML 1ML VIAL SQ SCH ×3 (06:53→21:18)
[2021-04-02 09:16] LABS: BASO % 0.3 % (0-2.0); EOS % 2.4 % (0-4.5); HEMATOCRIT 30.3 % (32.4-45.2); HEMOGLOBIN 9.9 GM/dL (10.7-15.3); LYMPH % 2.3 % (8-40); MCH 28.2 pg (25.7-33.7); MCHC 32.8 g/dl (32.0-36.0); MEAN CELL VOLUME 86.1 fl (80-96); MEAN PLT VOLUME 8.9 fl (7.5-11.1); MONO % 6.2 % (3.8-10.2); NEUT % 88.8 % (42.8-82.8); PLATELET COUNT 230 10^3/uL (134-434); RBC 3.52 M/mm3 (3.60-5.2); RDW 17.4 % (11.6-15.6); WHITE BLOOD COUNT 8.4 K/mm3 (4.0-10.0)
[2021-04-02 09:33] LABS: ALBUMIN 2.8 g/dl (3.4-5.0); BLOOD UREA NITROGEN 37.4 mg/dL (7-18); MAGNESIUM 1.8 mg/dL (1.8-2.4)
[2021-04-02 09:36] LABS: CREATININE 1.4 mg/dL (0.55-1.3)
[2021-04-02 09:37] LABS: BILIRUBIN,TOTAL 0.7 mg/dL (0.2-1)
[2021-04-02] MEDS: GABAPENTIN 300 MG CAPSULE PO SCH ×2 (09:37→09:57)
[2021-04-02] MEDS: QUEtiapine FUMARATE 25 MG TABLET PO SCH ×2 (09:37→09:57)
[2021-04-02] MEDS: ASPIRIN COATED 81 MG TABLET.EC PO SCH ×2 (09:38→09:57)
[2021-04-02] MEDS ORDERED: FUROSEMIDE 40 MG/4 ML INJECTABLE VIAL IVPUSH SCH (10:00)
[2021-04-02] MEDS ORDERED: morphine CARPU-JECT 2 MG/1 ML DISP.SYRIN SQ ONE (16:41)
[2021-04-02] MEDS ORDERED: MORPHINE SULFATE 2 MG/ML VIAL IVPUSH ONE (16:41)
[2021-04-02] MEDS ORDERED: ALBUTEROL SO4 0.083% IH SOL 2.5 MG/3 ML VIAL.NEB. NEB PRN (18:39)
[2021-04-02] MEDS ORDERED: ACETAMINOPHEN 325 MG TABLET (FP) PO PRN (18:39)
[2021-04-02] MEDS ORDERED: LORazepam 2 MG/ML SDV VIAL IVPUSH PRN (18:39)
[2021-04-02] MEDS ORDERED: INSULIN SLIDING SCALE (NOVOLOG) 1 VIAL SQ SCH (22:00)
[2021-04-02] MEDS ORDERED: CHLORHEXIDINE GLUCONATE 4% CLEANSER FOR DECOLONIZATION TP SCH (22:00)
[2021-04-02] MEDS ORDERED: MUPIROCIN 2% TOPICAL OINTMENT FOR DECOLONIZATION NS SCH (22:00)
[2021-04-02] MEDS ORDERED: GABAPENTIN 300 MG CAPSULE PO SCH (22:00)
[2021-04-02] MEDS ORDERED: ATORVASTATIN CA 40 MG TABLET (FP) PO SCH (22:00)
[2021-04-03] MEDS ORDERED: DEXTROSE 5%-WATER - 50 ML IVPB ONE (01:10)
[2021-04-03] MEDS ORDERED: PIPERACILLIN/TAZOBACTAM 3.375 GM VIAL IVPB ONE (01:10)
[2021-04-03] MEDS ORDERED: PIPERACILLIN/TAZOB 3.375 GM 3.375 GM in DEXTROSE 5%-WATER - 50 ML IVPB SCH (02:00)
[2021-04-03] MEDS ORDERED: RAPID SEQUENCE INTUBATION KIT NR ONE (03:57)
[2021-04-03 04:28] VITALS: BP 152/56; TEMP 99.2
[2021-04-03] MEDS ORDERED: morphine SULFATE 4 MG/ML VIAL ONE ×2 (05:01→05:17)
[2021-04-03] MEDS ORDERED: morphine CARPU-JECT 4 MG/1 ML DISP.SYRIN IM ONE (05:17)
[2021-04-03] MEDS ORDERED: morphine SULFATE 4 MG/ML VIAL IM ONE (05:17)
[2021-04-03] MEDS: morphine SULFATE 4 MG/ML VIAL IVPUSH ONE ×2 (05:33→05:36)
[2021-04-03] MEDS: HEPARIN NA (PORCINE) 5,000 UNITS/ML 1ML VIAL SQ SCH (05:39)
[2021-04-03] MEDS ORDERED: FUROSEMIDE 40 MG/4 ML INJECTABLE VIAL IVPUSH SCH (06:00)
[2021-04-03] MEDS ORDERED: MORPHINE SULFATE/0.9% NACL/PF 100 MG/100 ML BAG IVPB SCH (08:15)
[2021-04-03] MEDS ORDERED: ASPIRIN COATED 81 MG TABLET.EC PO SCH (10:00)
[2021-04-03] MEDS ORDERED: QUEtiapine FUMARATE 25 MG TABLET PO SCH (10:00)
[2021-04-03] MEDS ORDERED: LORazepam 2 MG/ML SDV VIAL IVPUSH PRN ×2 (10:12→10:25)
[2021-04-03 17:53] VITALS: PULSE 99
== END 2021-04-03 23:24 | disposition expired | DRG 64 ==
LOC: JER 16:29 → JERBED 21:48 → J4S 03-31 20:27 → JICU 04-02 20:54
PROVIDERS: ADMIT Internal Medicine; ATTEND Nurse Practitioner Family
DX: I63.9 Cerebral infarction, unspecified (principal); J96.01 Acute respiratory failure with hypoxia; I50.33 Acute on chronic diastolic (congestive) heart failure; L03.116 Cellulitis of left lower limb; L03.115 Cellulitis of right lower limb; E78.5 Hyperlipidemia, unspecified; J44.9 Chronic obstructive pulmonary disease, unspecified; E11.22 Type 2 diabetes mellitus with diabetic chronic kidney disease; I12.9 Hypertensive chronic kidney disease with stage 1 through stage 4 chronic kidney disease, or unspecified chronic kidney disease; N18.9 Chronic kidney disease, unspecified; E66.9 Obesity, unspecified; Z68.35 Body mass index [BMI] 35.0-35.9, adult; Z99.81 Dependence on supplemental oxygen; I25.10 Atherosclerotic heart disease of native coronary artery without angina pectoris; D64.9 Anemia, unspecified
CPT/HCPCS: 36415; 36600; 70552-TC; 71045-TC-FY; 71275-TC; 80053; 80061; 81003; 82550; 82565; 82803; 82962; 83036; 83605; 83735; 83880; 84100; 84484; 84520; 85025; 85027; 85379; 85610; 85651; 86140; 87040; 87086; 87186; 87804; 93005; 93010; 93306-TC; 93880-TC; 93970-TC; 94640; 94660; 97161-GP; 99285-25; C1887; C9803; J1644; U0003; U0005